=== PATIENT | male | born 1955 | race Caucasian/White ===

== ENCOUNTER 2020-02-01 10:23 | Outpatient (CLI) | payer MEDICARE, SELFPAY ==
--- NOTE | 2020-02-01 | ECG_ITS ---
Measurements Intervals [place] Rate: 71 P: 48 WI: 189 QRS: 48 QRSD: 80 T: 37 QT: 379 QTc: 413 Interpretive Statements SINUS RHYTHM NORMAL ECG Electronically Signed On 02-01-2020 12:31:09 CDT by Perry Nevarez D.O.
== END 2020-02-01 10:24 | disposition home or self-care (01) ==
DX: L97.518 Non-pressure chronic ulcer of other part of right foot with other specified severity (principal)
CPT/HCPCS: 93005

== ENCOUNTER 2020-02-11 11:14 | Emergency (ER) | payer MEDICARE, SELFPAY ==
[2020-02-11 11:19] VITALS: BP 122/58; PULSE 86; RESP 18; TEMP 36.9; O2SAT 99
--- NOTE | 2020-02-11 11:42 | ED.GENADULT ---
HPI - General Adult General Chief complaint: Skin/Abscess/Foreign Body Stated complaint: skin rash poss allergic rxn Time Seen by Provider: 02/11/20 11:15 Source: patient Mode of arrival: ambulatory Limitations: no limitations History of Present Illness HPI narrative: Patient is a 64-year-old male who presents with rash that is been present since Thursday patient notes that he had worked in the yard a day before. Patient notes that he was started on a prednisone taper and has taken 3 days of 60 mg prednisone last dose this morning. Patient notes that the rash has persisted and is diffuse over the torso extremities and head. Patient notes itching. Patient denies any recent illness allergic exposures similar occurrence in the past any recent antibiotic use. Patient on arrival is resting comfortably in the room in no distress. Patient has not taken any other medications for his symptoms Related Data Home Medications Medication Instructions Recorded Confirmed allopurinol 300 mg tablet 300 mg PO DAILY 02/09/20 02/09/20 amiloride 5 mg-hydrochlorothiazide 2 tablet PO DAILY tablet 02/09/20 02/09/20 50 mg tablet dfmeoukrdh-ubynbzhcidiqh-znqkmhtp 1 - 2 cap PO Q4H PRN cap 02/09/20 02/09/20 50 mg-300 mg-40 mg capsule cholecalciferol (vitamin D3) 25 25 mcg PO DAILY 02/09/20 02/09/20 mcg (1,000 unit) capsule hydroxyzine pamoate 50 mg capsule 50 mg PO Q8H PRN cap 02/09/20 02/09/20 meclizine 25 mg tablet 25 mg PO BID PRN tablet 02/09/20 02/09/20 modafinil 200 mg tablet 200 mg PO QAM 02/09/20 02/09/20 nzxawblb-lok-rdwqo acid 300 1 tablet PO DAILY 02/09/20 02/09/20 mcg-lycopene 600 mcg-lutein 300 mcg tablet omega-3 fatty acids 1,000 mg 2,000 mg PO DAILY cap 02/09/20 02/09/20 capsule propranolol 80 mg capsule,24 80 mg PO DAILY 02/09/20 02/09/20 hr,extended release testosterone cypionate 200 mg/mL 200 mg IM .[id number] ml 02/09/20 02/09/20 intramuscular oil venlafaxine 75 mg tablet 75 mg PO BID 02/09/20 02/09/20 Allergies Allergy/AdvReac Type Severity Reaction Status Date / Time No Known Allergies Allergy Unverified 02/11/20 11:24 Review of Systems Review of Systems: All systems reviewed & are unremarkable except as noted in HPI and below PMFSH Past Medical History Medical History Chicken pox Depression Essential hypertension Gout Hypogonadism Measles Surgical History Surgical History History of hernia repair History of neck surgery Kidney stone removed Family History Family History (Updated 02/09/20 @ 10:31 by Mary Ann Hickman [facility]) Father Liver disease due to alcohol Mother History of neuropathy Social History Social History Smoking status: Never smoker Alcohol intake: never Gender identity (if verbalized by the patient): Male Exam Narrative: Exam Narrative: GENERAL: Well-appearing, well-nourished, and in no acute distress. HEAD: Normocephalic, atraumatic. EYES: PERRLA and EOMI. ENT: Nares clear, no rhinorrhea or epistaxis. Mucous membranes moist. Oropharynx with slight erythema and without tonsillar hypertrophy exudate or other lesions. NECK: Supple. No adenopathy or masses. No stridor CHEST: Clear to auscultation. No respiratory distress. No wheezes rales or rhonchi HEART: Regular rate and rhythm. No murmur heard. Normal peripheral pulses. ABDOMEN: Soft, nontender, distended EXTREMITIES: Normal range of motion. No edema. SKIN: Warm, dry, diffuse maculopapular rash to include the hands and feet extremities torso and scalp. No blistering. Rash blanches NEURO: No focal deficits. Alert and oriented x3. PSYCH: Normal mood and affect. Course Consultations Consultation #1: Attempts were made to contact the patient's psychiatrist and neurologist neither will call back. Wanted to update them in regards to
[2020-02-11] MEDS: SODIUM CHLORIDE 0.9% IV 1,000 ML 999 ML IV CONT (11:45)
[2020-02-11] MEDS: FAMOTIDINE 20 MG/2 ML VIAL IV PUSH (11:46)
[2020-02-11 11:56] LABS: Basophils Absolute Auto 0.1 K/mm3 (0.0-0.1); Basophils Percent Auto 1.3 % (0.2-1.2); Eosinophils Absolute Auto 0.9 K/mm3 (0-0.3); Eosinophils Percent Auto 11.1 % (0-4.4); Hematocrit 46.5 % (42.0-52.0); Hemoglobin 15.4 g/dL (14.0-18.0); Immature Granulocyte Absolute 0.04 K/mm3 (0.00-0.031); Immature Granulocyte Percent A 0.5 % (0-0.5); Immature Platelet Fraction Pct 5.4 % (0.9-11.2); Lymphocytes Absolute Auto 1.27 K/mm3 (0.9-3.2); Lymphocytes Percent Auto 16.3 % (18.3-44.2); Mean Corpuscular HGB Conc 33.1 g/dl (32-36); Mean Corpuscular Hemoglobin 30.7 pg (26-34); Mean Corpuscular Volume 92.8 fl (80-100); Mean Platelet Volume 10.7 fl (7.4-10.4); Monocytes Absolute Auto 0.4 K/mm3 (0.1-0.6); Monocytes Percent Auto 5.2 % (2.6-8.5); Neutrophils Absolute Auto 5.1 K/mm3 (1.3-6.7); Neutrophils Percent Auto 65.6 % (45.5-73.1); Platelet Count Result 118 k/mm3 (150-375); Red Blood Count 5.01 M/mm3 (4.6-6.20); Red Cell Distribution Width 13.6 % (11.5-14.5); White Blood Count 7.8 K/mm3 (4.5-10.0)
[2020-02-11 12:04] LABS: INR 1.1; Prothrombin Time 13.5 Seconds (11.1-14.7)
[2020-02-11 12:05] LABS: Partial Thromboplastin Time 29.2 SECONDS (22.3-36.8)
[2020-02-11 12:08] LABS: Alanine Aminotransferase 83 U/L (4-50); Albumin Level 3.6 g/dL (3.5-5.1); Alkaline Phosphatase 187 U/L (38-126); Aspartate Amino Transferase 55 U/L (17-59); Bilirubin,Total 0.3 mg/dL (0.2-1.3); Blood Urea Nitrogen 21 mg/dL (9-20); Calcium 8.5 mg/dL (8.4-10.2); Carbon Dioxide 26 mmol/L (22-30); Chloride 102 mmol/L (98-107); Estimated CRCL calculation 90 ml/min; Estimated Glomerular Filt Rate > 60; Glucose 159 mg/dL (75-110); Potassium 3.6 mmol/L (3.4-5.0); Sodium 135 mmol/L (137-145)
[2020-02-11 12:10] LABS: Monoscreen Negative (Negative); Negative Monotest Control Negative (Negative); Positive Monotest Control Positive (Positive)
[2020-02-11 12:49] LABS: Rapid Plasma Reagin Non-Reactive (NonReactive)
[2020-02-11 13:21] VITALS: BP 111/62; PULSE 87; RESP 20; TEMP 36.6; O2SAT 98
== END 2020-02-11 13:51 | disposition home or self-care (01) ==
PROVIDERS: Emergency Medicine Emergency Medical Services; Emergency Provider Emergency Medicine; PCP Internal Medicine
DX: L27.0 Generalized skin eruption due to drugs and medicaments taken internally (principal); F32.9 Major depressive disorder, single episode, unspecified; I10 Essential (primary) hypertension; T42.1X5A Adverse effect of iminostilbenes, initial encounter
CPT/HCPCS: 36415; 80053; 85025; 85055; 85610; 85730; 86308; 86592; 87081; 87880; 96361; 96374; 96375; 99284; J1200; J7030

== ENCOUNTER 2020-03-09 10:40 | Outpatient (CLI) | payer MEDICARE, SELFPAY ==
--- NOTE | ~2020-03-09 | NM_ITS ---
EXAMINATION: NM bone 3 phase DATE: 03/09/2020 14:50 INDICATION: Pain at the ball of the right foot. TECHNIQUE: 21.7 mCi Tc-99m HDP by intravenous route. Scintigrams of the bilateral feet were obtained in angiographic, blood pool, and delayed phases. COMPARISON: No imaging available to us institution for comparison. FINDINGS: Normal homogeneous distribution of activity at the bilateral feet and ankles on the angiographic and immediate blood pool images. There is likely degenerative joint centered increased uptake, moderate a t the bilateral mid feet in the region of the tarsal metatarsal joints and mild at the right first an d fifth metatarsophalangeal joints and at the bilateral fifth toes. IMPRESSION: 1. Typical pattern of likely degenerative delayed joint centered uptake in the bilateral feet includ ing the region of concern at the right first metatarsophalangeal joint. No abnormal uptake on the ang iographic or blood pool images to suggest inflammation in the setting of infection, inflammatory arth ritis or fracture/stress injury. Reviewed, dictated and finalized at location A. IMPRESSION: 1. Typical pattern of likely degenerative delayed joint centered uptake in the bilateral feet including the region of concern at the right first metatarsopha langeal joint. No abnormal uptake on the angiographic or blood pool images to s uggest inflammation in the setting of infection, inflammatory arthritis or frac ture/stress injury.
== END 2020-03-09 10:41 | disposition home or self-care (01) ==
PROVIDERS: PCP Internal Medicine
DX: G62.9 Polyneuropathy, unspecified (principal); M79.671 Pain in right foot
CPT/HCPCS: 78315; A9561

== ENCOUNTER 2020-03-12 15:03 | Outpatient (CLI) | payer MEDICARE, SELFPAY ==
--- NOTE | ~2020-03-12 | CT_ITS ---
EXAMINATION: CT abdomen pelvis wo con EXAM DATE: 03/12/2020 16:24 INDICATION: Acute left flank pain. TECHNIQUE: Spiral CT of the abdomen and pelvis was performed without contrast. Axial, coronal and sag ittal images were reviewed. The dose-length product (DLP) for this examination was 374.85 mGy-cm. T he exposure was tailored according to patient size (auto mA exposure control), and iterative reconstr uction (ASIR) was used as additional dose reduction technique. Comparison is made to prior examinatio n from 01/29/2013. FINDINGS: Small bilateral nephrolithiasis, with about 6 stones in each kidney, measuring up to 5 mm o n the right and 3 mm on the left. No ureteral or bladder stones, no obstructive nephropathy or hydron ephrosis. The prostate is unremarkable. The bladder is unremarkable. The liver, spleen, adrenal gla nds and pancreas are unremarkable. Gallbladder is unremarkable. No biliary obstruction. There is n o retroperitoneal or pelvic lymphadenopathy. There is mild scattered arteriosclerotic disease. Smal l umbilical fat-containing hernia. The appendix is normal. There is small sliding gastroesophageal hiatal hernia. There is expected am ount of colonic stool. No free intraperitoneal gas. The heart is normal in size. There are no pe ricardial or pleural effusions. The lung bases are unremarkable. There are no osteoblastic or osteo lytic lesions identified. IMPRESSION: 1. Bilateral nephrolithiasis. No obstructive nephropathy or acute findings. 2. Small umbilical fat-containing hernia. Reviewed, dictated and finalized at location B.
--- NOTE | ~2020-03-12 | XR_ITS ---
XR abdomen/kub 1V 03/12/2020 15:35 Indication: Acute flank pain Procedure: KUB Comparison: 08/31/2013 Findings: Bowel gas pattern is nonobstructive. There are multiple bilateral renal stones. No acute os seous abnormality. No definite stones in the course of the ureters. No acute osseous abnormality. Impression: 1: Bilateral nephrolithiasis. Reviewed, dictated and finalized at location A. Impression: 1: Bilateral nephrolithiasis.
== END 2020-03-12 15:04 | disposition home or self-care (01) ==
PROVIDERS: PCP Internal Medicine; Visit Provider Urology
DX: R10.9 Unspecified abdominal pain (principal); N20.0 Calculus of kidney; K42.9 Umbilical hernia without obstruction or gangrene
CPT/HCPCS: 74018; 74176

== ENCOUNTER 2020-03-24 11:05 | Outpatient (CLI) | payer MEDICARE, SELFPAY ==
[2020-03-24 11:34] LABS: Prothrombin Time 12.9 Seconds (11.1-14.7)
[2020-03-24 11:35] LABS: Partial Thromboplastin Time 30.1 SECONDS (22.3-36.8)
[2020-03-24 12:21] LABS: Valproic Acid < 10.0 ug/mL (50-120)
== END 2020-03-24 11:06 | disposition home or self-care (01) ==
LOC: ANHLAB 11:07
PROVIDERS: Anesthesiology; PCP Internal Medicine; Visit Provider Urology
DX: Z01.818 Encounter for other preprocedural examination (principal); N20.0 Calculus of kidney; Z51.81 Encounter for therapeutic drug level monitoring
CPT/HCPCS: 36415; 80164; 85610; 85730; 87086

== ENCOUNTER 2020-03-28 01:27 | Outpatient (CLI) | payer MEDICARE, SELFPAY ==
[2020-03-28 22:08] LABS: SARS-CoV-2 RNA PCR Negative
== END 2020-03-28 01:28 | disposition home or self-care (01) ==
LOC: ANHCOVIDDT 01:27
PROVIDERS: PCP Internal Medicine; Visit Provider Urology
DX: Z01.818 Encounter for other preprocedural examination (principal); Z11.59 Encounter for screening for other viral diseases
CPT/HCPCS: 87635; C9803; U0003

== ENCOUNTER 2020-03-30 03:11 | Day surgery (SDC) | payer MEDICARE, SELFPAY ==
[2020-03-23 15:23] VITALS: BMI 31.5
[2020-03-30] VITALS (7 sets, daily range): BP systolic 112–133; BP diastolic 76–81; PULSE 66–79; RESP 10–20; TEMP 36.3–36.8; O2SAT 92–98
--- NOTE | ~2020-03-30 | XR_ITS ---
EXAMINATION: XR abdomen/kub 1V DATE: 03/30/2020 06:58 INDICATION: Lithotripsy. Right renal stone. TECHNIQUE: KUB COMPARISON: None. FINDINGS: There are multiple small bilateral renal stones. Bowel gas pattern is nonobstructive. Lung bases unre markable. No acute osseous abnormality. IMPRESSION: 1. Bilateral nephrolithiasis. Reviewed, dictated and finalized at location A.
--- NOTE | 2020-03-30 06:49 | WPDHPUPDATE1 ---
History and Physical Update Update Date/Time: 03/30/20 06:49 History and Physical has been reviewed, including an updated exam of the patient. There are NO changes in the patient's condition. Risks, benefits, and alternatives have been discussed and questions answered. Patient agrees to proceed with procedure. Proceed with right renal eswl.
--- NOTE | 2020-03-30 07:42 | WPDANESEPPF ---
Anes - Initial Pre Proc Eval Procedure: Operation Date: 03/30/20 08:30 Proposed Procedures p Right Extracorporeal Shock Wave Lithotripsy - Martin Ayala MD Date/Time: 03/30/20 07:42 Surgeon: Martin Ayala MD Pre Op Diagnosis: Bilateral Nephrolithasis Patient Data Age: 64 Gender: M Height: 5 ft 10 in Weight: 99.79 kg Allergies Allergy/AdvReac Type Severity Reaction Status Date / Time carbamazepine Allergy Rash Verified 03/23/20 15:24 Home Medications Medication Instructions Recorded Confirmed Type allopurinol 300 mg tablet 300 mg PO DAILY 02/09/20 03/23/20 History amiloride 5 mg-hydrochlorothiazide 1 tablet PO BID tablet 02/09/20 03/23/20 History 50 mg tablet cholecalciferol (vitamin D3) 25 25 mcg PO DAILY 02/09/20 03/23/20 History mcg (1,000 unit) capsule hydroxyzine pamoate 50 mg capsule 50 mg PO Q8H PRN cap 02/09/20 03/23/20 History meclizine 25 mg tablet 25 mg PO BID PRN tablet 02/09/20 03/23/20 History modafinil 200 mg tablet 200 mg PO QAM 02/09/20 03/23/20 History xjiqoeom-dlg-xbebk acid 300 1 tablet PO DAILY 02/09/20 03/23/20 History mcg-lycopene 600 mcg-lutein 300 mcg tablet omega-3 fatty acids 1,000 mg 2,000 mg PO DAILY cap 02/09/20 03/23/20 History capsule testosterone cypionate 200 mg/mL 200 mg IM DIRECTED ml 02/09/20 03/23/20 History intramuscular oil venlafaxine 75 mg tablet 75 mg PO BID 02/09/20 03/23/20 History dextromethorphan 20 mg-quinidine 1 cap PO Q12H 02/14/20 03/23/20 History 10 mg capsule divalproex 500 mg tablet,delayed 500 mg PO TID tablet 02/14/20 03/23/20 History release donepezil 10 mg tablet 10 mg PO DAILY tablet 02/14/20 03/23/20 History hydrocodone 5 mg-acetaminophen 325 1 tablet PO Q6H PRN #14 tablet 03/14/20 03/23/20 Rx mg tablet tamsulosin 0.4 mg capsule 0.4 mg PO DAILY #7 cap 03/14/20 03/23/20 Rx primidone 50 mg PO TID 03/23/20 03/23/20 History Patient hx anesthesia problems: none Family hx anesthesia problems: none PMFSH Past Medical History Medical History Chicken pox Depression Essential hypertension Gout Hypogonadism Measles Surgical History Surgical History History of hernia repair History of neck surgery Kidney stone removed Family History Family History Father Liver disease due to alcohol Mother History of neuropathy Social History Social History Smoking status: Never smoker Alcohol intake: never Gender identity (if verbalized by the patient): Male Spiritual care concerns: No Anes - Eval Final PreProcedure Day of Procedure 03/30/20 07:42 Patient weight: overweight Heart: regular rate and rhythm Lungs: clear to auscultation Airway: Mallampati scale class II Neurological: other (alert) Last oral intake: >/= 8 hours ASA classification: III Emergent: no Anesthetic plan: proceed Anesthesia type and monitoring: general LMA and standard monitoring Informed Consent: The patient's anesthetic plan and its attendant risks and benefits were discussed with the patient/family/POA. Questions were solicited and answers provided to the satisfaction of the patient/family/POA.
[2020-03-30] MEDS: LACTATED RINGERS 1,000 ML 30 ML IV CONT (07:50)
[2020-03-30] MEDS: ceFAZolin 2 GM/D5W 50 ML 2 GM/50 ML BAG IVPB (08:17)
--- NOTE | 2020-03-30 08:55 | PM.PROC ---
Procedure Note - Detailed Date of procedure: 03/30/20 Pre-op diagnosis: Bilateral Nephrolithasis Post-op diagnosis: same Procedure performed: ESWL of right renal calculi 2000 shocks to the lower pole calculus measuring 6 mm and 500 shocks to more superior pole Description of procedure: Patient was taken to the operative suite and correctly identified. Once anesthesia was obtained the lower pole stone on the right was visualized in both planes. Two thousand shocks were given to the stone there appeared to be good fragmentation. We then turned attention to the [place] upper pole stone. The remaining 500 shocks were given to the stone. Patient tolerated procedure well without any complications and was taken recovery room stable condition. He will follow up in 10-14 days with a KUB. Develops any problems he will call so we can deal with appropriately. Anesthesia: GLMA Surgeon: Martin Ayala MD Drains: No Packing: No Pathology: none sent Complications: No immediate complications Condition: stable Disposition: PACU
== END 2020-03-30 10:30 | disposition home or self-care (01) ==
PROVIDERS: PCP Internal Medicine; Visit Provider Urology
PROC: (CPT 50590; principal; 2020-03-30 08:30)
DX: N20.0 Calculus of kidney (principal); I10 Essential (primary) hypertension; M10.9 Gout, unspecified; E29.1 Testicular hypofunction; F32.9 Major depressive disorder, single episode, unspecified
CPT/HCPCS: 50590; 74018; J0690; J1100; J1885; J2250; J2405; J2704; J3010; J7120

== ENCOUNTER 2020-04-25 09:30 | Outpatient (CLI) | payer MEDICARE, SELFPAY ==
--- NOTE | ~2020-04-25 | XR_ITS ---
EXAMINATION: XR abdomen/kub 1V EXAM DATE: 04/25/2020 09:58 INDICATION: Nephrolithiasis, kidney stones. TECHNIQUE: Frontal projection(s) of the abdomen for interpretation. Comparison is made to prior exami nation from 03/30/2020. FINDINGS: Probable bilateral nephrolithiasis, indicated on the x-ray. Nonobstructive bowel gas patte rn. There are mild bony degenerative changes. There is no organomegaly. IMPRESSION: Bilateral nephrolithiasis. Reviewed, dictated and finalized at location A. IMPRESSION: Bilateral nephrolithiasis.
== END 2020-04-25 09:31 | disposition home or self-care (01) ==
PROVIDERS: PCP Internal Medicine; Visit Provider Urology
DX: N20.0 Calculus of kidney (principal)
CPT/HCPCS: 74018

== ENCOUNTER 2020-05-29 10:54 | Outpatient (CLI) | payer MEDICARE, SELFPAY ==
--- NOTE | ~2020-05-29 | XR_ITS ---
EXAMINATION: XR abdomen/kub 1V DATE: 05/29/2020 11:08 INDICATION: Calculus of kidney. TECHNIQUE: A supine view of the abdomen on 2 radiographs was obtained. COMPARISON: Abdomen radiographs 04/25/2020, CT abdomen and pelvis 03/12/2020 FINDINGS: There are no dilated loops of bowel. There are approximately 5 stones in right kidney measu ring up to 4 mm. There is a 2 mm calcification in right pelvis. There are approximately 6 stones in l eft kidney measuring up to 3 mm. IMPRESSION: 1. 2 mm calcification in right pelvis, which may be a stone at the right ureterovesicular junction. 2. Small bilateral kidney stones. Reviewed, dictated and finalized at location A. IMPRESSION: 1. 2 mm calcification in right pelvis, which may be a stone at the right ureter ovesicular junction. 2. Small bilateral kidney stones.
== END 2020-05-29 10:55 | disposition home or self-care (01) ==
LOC: ANHIMG 10:57
PROVIDERS: PCP Internal Medicine; Visit Provider Urology
DX: N20.0 Calculus of kidney (principal)
CPT/HCPCS: 74018

== ENCOUNTER 2021-03-12 16:27 | Outpatient (CLI) | payer MEDICARE, SELFPAY ==
--- NOTE | ~2021-03-12 | XR_ITS ---
EXAMINATION: XR abdomen/kub 1V DATE: 03/12/2021 16:45 INDICATION: Calculus of kidney. TECHNIQUE: A supine view of the abdomen on 2 radiographs was obtained. COMPARISON: Abdomen radiographs 05/29/2020, CT abdomen and pelvis 03/12/2020 FINDINGS: There are no dilated loops of bowel. There are approximately 6 stones in right kidney measu ring up to 4 mm. There are approximately 8 stones in left kidney measuring up to 4 mm. IMPRESSION: 1. Bilateral kidney stones. Reviewed, dictated and finalized at location A. IMPRESSION: 1. Bilateral kidney stones.
== END 2021-03-12 16:28 | disposition home or self-care (01) ==
PROVIDERS: PCP Student in an Organized Health Care Education/Training Program; Visit Provider Urology
DX: N20.0 Calculus of kidney (principal)
CPT/HCPCS: 74018

== ENCOUNTER 2023-01-15 13:50 | Outpatient (CLI) | payer MEDICARE, OTHER, SELFPAY ==
--- NOTE | ~2023-01-15 | XR_ITS ---
EXAMINATION: XR abdomen/kub 1V DATE: 01/15/2023 14:16 INDICATION: Calculus of kidney. TECHNIQUE: A supine view of the abdomen on 2 radiographs was obtained. COMPARISON: CT abdomen and pelvis 03/12/2020 FINDINGS: There are no dilated loops of bowel. There are multiple stones in each kidney measuring up to 5 mm on the right. IMPRESSION: 1. Bilateral kidney stones. Reviewed, dictated and finalized at location A. IMPRESSION: 1. Bilateral kidney stones.
== END 2023-01-15 13:51 | disposition home or self-care (01) ==
PROVIDERS: PCP Student in an Organized Health Care Education/Training Program
DX: N20.0 Calculus of kidney (principal)
CPT/HCPCS: 74018

== ENCOUNTER 2023-02-18 14:05 | Outpatient (CLI) | payer MEDICARE, OTHER, SELFPAY ==
--- NOTE | 2023-02-18 14:00 | ECG_ITS ---
Measurements Intervals [place] Rate: 71 P: 7 MO: 183 QRS: 43 QRSD: 90 T: 28 QT: 400 QTc: 436 Interpretive Statements SINUS RHYTHM NONSPECIFIC T-WAVE ABNORMALITY COMPARED TO ECG 02/01/2020 11:46:25 T-WAVE ABNORMALITY NOW PRESENT Electronically Signed On 02-19-2023 10:41:40 CDT by Juan Luna M.D.
[2023-02-18 14:44] LABS: Anion Gap 5 mmol/L (8-16); Blood Urea Nitrogen 15 mg/dL (9-20); Calcium 9.3 mg/dL (8.4-10.2); Carbon Dioxide 34 mmol/L (22-30); Chloride 100 mmol/L (98-107); Estimated Glomerular Filt Rate > 60; Glucose 115 mg/dL (65-110); Potassium 3.1 mmol/L (3.4-5.0); Sodium 139 mmol/L (137-145)
[2023-02-18 14:50] LABS: Prothrombin Time 13.2 Seconds (11.1-14.7)
[2023-02-18 14:51] LABS: Appearance Urine Clear (Clear); Bilirubin Urine Negative (Negative); Blood Urine Negative (Negative); Color Urine Yellow (Yellow); Glucose Urine UA Negative (Negative); Ketones Urine Negative (Negative); Leukocyte Esterase Ur Negative LEU/UL (Negative); Nitrate Urine Negative (Negative); Partial Thromboplastin Time 34.7 SECONDS (22.3-36.8); Protein Urine Negative (Negative); Specific Grav Ur 1.018 (1.001-1.035); Urobilinogen Urine 0.2 mg/dL (<2.0); pH Urine 5.5 (5.0-9.0)
[2023-02-18 14:56] LABS: Add Urine Microscopic? NO
== END 2023-02-18 14:06 | disposition home or self-care (01) ==
LOC: ANHSURGERY 14:08
PROVIDERS: Anesthesiology; PCP Student in an Organized Health Care Education/Training Program; Visit Provider Urology
DX: Z01.810 Encounter for preprocedural cardiovascular examination (principal); Z01.812 Encounter for preprocedural laboratory examination; N20.0 Calculus of kidney; I10 Essential (primary) hypertension; Z79.899 Other long term (current) drug therapy; R94.31 Abnormal electrocardiogram [ECG] [EKG]
CPT/HCPCS: 36415; 80048; 81003; 85610; 85730; 93005

== ENCOUNTER 2023-02-20 04:28 | Day surgery (SDC) | payer MEDICARE, OTHER, SELFPAY ==
[2023-02-18 12:57] VITALS: BMI 32.3
--- NOTE | 2023-02-18 13:02 | PC.NURSE ---
Report to the Outpatient Waiting Room, entrance under the green pavilion located off [facility], at time 9:00 on date 02/20/23. Planned Procedure Time: 11:00. Time changes happen often and if your time is changed the preop area will call you the afternoon before. - You and your visitor will be asked to self-screen and do not enter if you have any COVID symptoms. - A mask is optional within the hospital at this time. Patients may have clear liquids (water, carbonated beverages, clear teas, apple juice) until 3 hours prior to surgery with a maximum of 20 ounces. - No food from midnight until time of surgery Take the following medications with a SIP of water the morning of surgery: GABAPENTIN, LAMOTRIGINE, VENLAFAXINE, HYDROXYZINE DO NOT STOP ANY OF YOUR OTHER PRESCRIPTION MEDICATIONS PRIOR TO SURGERY ?EXCEPT THE FOLLOWING Medications to discontinue per physician: VITAMINS/SUPPLEMENTS Date to take last dose: NO MORE UNTIL AFTER SURGERY Please no make-up, nail north k[place], hairspray, perfume, deodorant, or body powder the day of surgery. No jewelry (including any body piercings) or valuables the day of surgery, leave them at home. Please take a shower or bath the night before, or the morning of, surgery with an antibacterial soap. Wear comfortable, loose fitting clothing. - Jewelry must be removed prior to entering the operating room. Rings and piercings that are not removed may be cut off. - The hospital will not accept responsibility for valuables. - Please leave all valuables, including medications, at home the day of surgery. If you are going home after surgery, a licensed local combination truck driver must drive you home. - NO public transportation without another adult if you receive anesthesia. - We recommend that an adult stay with you for 24 hours following discharge. - We also recommend that you do not drive, make important decision, drink alcoholic beverages, or take any drugs that were not prescribed by your health care provider for at least 24 hours after your discharge time. Follow any additional instructions given to you from your surgeon. If you or anyone in your household have experienced Covid symptoms in the past week, please notify your surgeon or the nurse liaison at the phone number below for possible testing. Telephone instructions given to ANASTACIA Lind KACY and asked if any additional questions and then verbalized understanding. Patient advised to call surgeon office or pre surgery nurse liaison [phone] if any additional questions.
[2023-02-20] VITALS (8 sets, daily range): BP systolic 120–138; BP diastolic 71–86; PULSE 60–89; RESP 12–19; TEMP 36.6–36.7; O2SAT 94–100
--- NOTE | ~2023-02-20 | XR_ITS ---
XR abdomen/kub 1V DATE: 02/20/2023 09:22 INDICATION: Prelithotripsy examination TECHNIQUE: 2 supine AP views of the abdomen COMPARISON: 01/15/2023 KUB FINDINGS: Multiple bilateral calcified kidney stones are again noted, the largest by 5 mm, on the rig ht. No visceromegaly is evident. The psoas shadows are intact. No evidence of bowel obstruction. Degenerative changes of the lumbar spine. IMPRESSION: Bilateral nephrolithiasis, stable since 01/15/2023 Reviewed, dictated and finalized at Location A. Reviewed, dictated and finalized at location []
--- NOTE | 2023-02-20 10:11 | WPDANESEPPF ---
Anes - Initial Pre Proc Eval Procedure: Operation Date: 02/20/23 11:00 Proposed Procedures p Left Extracorporeal Shock Wave Lithotripsy - Martin Ayala MD Date/Time: 02/20/23 10:11 Surgeon: Martin Ayala MD Pre Op Diagnosis: left renal stones Patient Data Age: 67 Gender: M Height: 1.78 m Weight: 99.2 kg Last Vital Signs Temp 36.6 C 02/20/23 09:33 Pulse 68 02/20/23 09:33 Resp 18 02/20/23 09:33 BP 131/71 02/20/23 09:33 Pulse Ox 97 02/20/23 09:33 O2 Del Method Room Air 02/20/23 09:33 Allergies Allergy/AdvReac Type Severity Reaction Status Date / Time carbamazepine Allergy Severe Hives Verified 02/20/23 09:33 Home Medications Medication Instructions Recorded Confirmed Type cholecalciferol (vitamin D3) 25 25 mcg PO DAILY 02/09/20 02/20/23 History mcg (1,000 unit) capsule hydroxyzine pamoate 50 mg capsule 50 mg PO Q8H PRN Anxiety 02/09/20 02/20/23 History modafinil 200 mg tablet 200 mg PO QAM 02/09/20 02/20/23 History rkfxwylm-sgt-qogqk acid 300 1 tablet PO DAILY 02/09/20 02/20/23 History mcg-lycopene 600 mcg-lutein 300 mcg tablet (Centrum Silver Men) omega-3 fatty acids 1,000 mg 2,000 mg PO DAILY 02/09/20 02/20/23 History capsule (Fish Oil Concentrate) testosterone cypionate 200 mg/mL 200 mg IM DIRECTED 02/09/20 02/20/23 History intramuscular oil venlafaxine 75 mg tablet 75 mg PO BID 02/09/20 02/20/23 History donepezil 10 mg tablet 10 mg PO DAILY 02/14/20 02/20/23 History allopurinol 300 mg tablet 300 mg PO DAILY #90 tabs 07/16/20 02/20/23 Rx atorvastatin 10 mg tablet 10 mg PO DAILY #90 tabs 06/24/21 02/20/23 Rx chlorthalidone 25 mg tablet 25 mg PO DAILY 02/18/23 02/20/23 History gabapentin 300 mg capsule 300 mg PO BID 02/18/23 02/20/23 History lamotrigine 100 mg tablet 100 mg PO BID 02/18/23 02/20/23 History tamsulosin 0.4 mg capsule 0.4 mg PO HS 02/18/23 02/20/23 History Patient hx anesthesia problems: none Family hx anesthesia problems: none Results Review: All pre-operative results and documents have been reviewed as part of the pre-operative evaluation. [facility] Past Medical History Medical History Chicken pox Depression Essential hypertension Gout Hypogonadism Measles PTSD (post-traumatic stress disorder) Surgical History Surgical History History of hernia repair History of neck surgery Kidney stone removed Family History Family History Father Liver disease due to alcohol Mother History of neuropathy Social History Social History Smoking status: Never smoker Alcohol intake: never Substance use: never Substance use type: does not use Living arrangements: with family Gender identity (if verbalized by the patient): Male Spiritual care concerns: No Anes - Eval Final PreProcedure Day of Procedure 02/20/23 10:11 Patient weight: obese Heart: regular rate and rhythm Lungs: clear to auscultation Airway: Mallampati scale Neurological: alert and oriented Last oral intake: >/= 8 hours ASA classification: III Emergent: no Anesthetic plan: proceed Anesthesia type and monitoring: general LMA and standard monitoring Results Review: All pre-operative results and documents have been reviewed as part of the pre-operative evaluation. Informed Consent: The patient's anesthetic plan and its attendant risks and benefits were discussed with the patient/family/POA. Questions were solicited and answers provided to the satisfaction of the patient/family/POA.
[2023-02-20] MEDS: LACTATED RINGERS 1,000 ML 30 ML IV CONT ×2 (10:51→12:03)
--- NOTE | 2023-02-20 11:11 | WPDHPUPDATE1 ---
History and Physical Update Update Date/Time: 02/20/23 11:11 History and Physical has been reviewed, including an updated exam of the patient. There are NO changes in the patient's condition. Risks, benefits, and alternatives have been discussed and questions answered. Patient agrees to proceed with procedure. Proceed with left renal lithotripsy
[2023-02-20] MEDS: ceFAZolin 2 GM/D5W 50 ML 2 GM/50 ML BAG IVPB (11:20)
--- NOTE | 2023-02-20 11:54 | W.PM.PROC2 ---
Procedure Note - Detailed Date of Procedure 02/20/23 Pre-op Diagnosis left renal stones Post-op Diagnosis Same Procedure Performed Lithotripsy of left renal calculi 1400 shocks to the upper pole stone, 1100 shocks to 2 lower pole stones Surgeon Martin Ayala MD Anesthesia General Description of Procedure Patient was taken to the operative suite correctly identified. Once anesthesia was obtained the upper pole stone was localized in both planes. One thousand four hundred shocks were given the stone appeared to be good fragmentation. We then turned our attention to to lower pole stones. They were adjacent to each other. The remaining lamina 100 shocks were given to the stones. Patient tolerated procedure well without any complications was taken recovery stable condition. He will follow-up in 7-10 days with KUB. This completes dictation please send a copy to my office Drains No Packing No Pathology None sent Complications No immediate complications Condition Stable Disposition PACU
== END 2023-02-20 13:36 | disposition home or self-care (01) ==
PROVIDERS: PCP Student in an Organized Health Care Education/Training Program; Visit Provider Urology
PROC: (CPT 50590; principal; 2023-02-20 11:00)
DX: N20.0 Calculus of kidney (principal); I10 Essential (primary) hypertension; M10.9 Gout, unspecified; F32.A Depression, unspecified; F43.10 Post-traumatic stress disorder, unspecified; E66.9 Obesity, unspecified; Z68.31 Body mass index [BMI] 31.0-31.9, adult
CPT/HCPCS: 50590; 74018; J0690; J1100; J2405; J2704; J3010; J7120

== ENCOUNTER 2023-03-04 13:44 | Outpatient (CLI) | payer MEDICARE, OTHER, SELFPAY ==
--- NOTE | ~2023-03-04 | XR_ITS ---
EXAM: XR abdomen/kub 1V DATE: 03/04/2023 13:57 HISTORY: BI RENAL STONES, 2 WKS POST ESWL . COMPARISON: 02/20/2023. FINDINGS: Clear lung bases. Normal bowel gas pattern. No organomegaly. Multiple stable bilateral lars al stones. Lumbar degenerative disc disease. Mild bilateral hip osteoarthritis. IMPRESSION: Stable bilateral nephrolithiasis. Reviewed, dictated and finalized at location K.
== END 2023-03-04 13:45 | disposition home or self-care (01) ==
PROVIDERS: PCP Student in an Organized Health Care Education/Training Program; Visit Provider Urology
DX: N20.0 Calculus of kidney (principal)
CPT/HCPCS: 74018

== ENCOUNTER 2023-12-18 09:43 | Outpatient (CLI) | payer MEDICARE, OTHER, SELFPAY ==
--- NOTE | 2023-12-28 18:37 | WPDSLEEPSTUD ---
Sleep Study Date of Study: 12/18/23 Ordering Provider: Indigo Olguin Interpreting Physician: Juliana Bronson DO Sleep Study Type: Split Polysomnogram Height: 1.8 m Weight: 102.058 kg Body Mass Index: 31.4 Neck Circumference (inches): 17.5 [place]: 3 Reason for Sleep Study Previously diagnosed with ROSEMARIE. Not compliant with PAP Therapy. Needs split study to re-qualify for treatment. Sleep History The patient is a 68-year-old male With prior traumatic brain injury, peripheral neuropathy, diabetes, hypertension, gout and cognitive impairment that had a sleep study ordered by his neurologist for evaluation of sleep apnea. The patient was previously diagnosed with mild obstructive sleep apnea but was unable to tolerate CPAP. the patient occasionally awakens from sleep short of breath. He denies awakening at night with heartburn, belching or cough. He frequently snores and it is frequently loud enough that others complain. He occasionally has trouble sleeping when he has a cold. He rarely wakes up gasping for air throughout the night. He occasionally has breathing problems at night observed by himself or others. He occasionally sweats excessively at night. He occasionally has heart palpitations or irregular heartbeats during the night. He occasionally falls asleep during the day but never while driving. He denies sleep paralysis, cataplexy and hypnagogic / hypnopompic hallucinations. He denies having trouble at school or work due to sleepiness. He denies feeling afraid of going to sleep. He frequently has nightmares. He frequently remembers his dreams. He frequently has thoughts racing through his mind. He rarely feels sad, depressed or anxious. He rarely has muscular tension. He occasionally notices parts of his body jerk. He rarely kicks during the night. He denies having crawling and aching feelings in his legs. He rarely has leg pain during the night. He rarely grinds his teeth during sleep but rarely awakens with morning jaw pain. He is occasionally bothered by pain during the day and occasionally awakened by pain during the night. He occasionally wakes up feeling stiff in the morning. He occasionally wakes up with sore or achy muscles. He occasionally wakes up with pain in the neck, spine and other joints. He goes to bed at 11:00 p.m. on both weekdays and weekends. It takes him 1 hour to fall asleep. He wakes up twice throughout the night for unknown reasons and it can take up to 5 minutes to fall back asleep. He wakes up at 4:00 a.m. on weekdays and at 5:00 a.m. on the weekends. He typically gets 6 hours of sleep per night. He will stay in bed for 5 minutes after waking up in the morning. He currently lives with his . He denies consuming any caffeinated beverages within 2 hours of bedtime. He denies engaging in physical exercise before bedtime. He will read watch television before falling asleep. He will take naps in the afternoon or the evening and they are refreshing. He consumes 1 caffeinated beverage per day. He denies tobacco, alcohol and recreational drug use. [facility] Past Medical History Medical History Chicken pox Depression Essential hypertension Gout Hypogonadism Measles PTSD (post-traumatic stress disorder) Surgical History Surgical History History of hernia repair History of neck surgery Kidney stone removed Family History Family History Father Liver disease due to alcohol Mother History of neuropathy Social History Social History Smoking status: Never smoker Alcohol intake: never Substance use: never Substance use type: does not use Living arrangements: with family Gender identity (if verbalized by the patient): Male Spiritual care conc
[2023-12-29 12:50] VITALS: BMI 31.4
== END 2023-12-19 07:11 | disposition home or self-care (01) ==
LOC: ANHCSM 09:44
PROVIDERS: PCP Student in an Organized Health Care Education/Training Program
DX: G47.33 Obstructive sleep apnea (adult) (pediatric) (principal); G47.61 Periodic limb movement disorder
CPT/HCPCS: 95811

== ENCOUNTER 2024-02-09 16:25 | Emergency (ER) | payer MEDICARE, OTHER, SELFPAY ==
--- NOTE | ~2024-02-09 | XR_ITS ---
EXAM: XR ankle LT min 3V DATE: 02/09/2024 17:06 HISTORY: left lateral ankle injury/pain . COMPARISON: None available. FINDINGS: Normal mineralization. Oblique fracture of the distal left fibula extending to the joint l ine, with 3 mm lateral displacement. No lytic or blastic lesion. Moderate Achilles and plantar enthes opathy. Degenerative changes in the tibiotalar joint and multiple midfoot joints. No erosion or perio steal change. Soft tissues within normal limits. IMPRESSION: Oblique mildly displaced Pate B type fracture of the distal left fibula. Reviewed, dictated and finalized at location K. IMPRESSION: Oblique mildly displaced Pate B type fracture of the distal left f ibula.
--- NOTE | 2024-02-09 16:47 | ED.LOWEXIN ---
HPI - Extremity Injury (Lower) General Chief Complaint: Extremity Injury, Lower Stated Complaint: lt ankle injury Time Seen by Provider: 02/09/24 16:50 Source: patient Mode of arrival: ambulatory Limitations: no limitations History of Present Illness HPI Narrative: Wily is a 68-year-old male patient presenting to the clinic today with complaints of left ankle injury. He reports he slipped on Thursday and did the splits and injured the left ankle. Has pain and swelling to the medial and lateral ankle. Had the ankle wrapped with [employer] Related Data Home Medications Medication Instructions Recorded Confirmed cholecalciferol (vitamin D3) 25 25 mcg PO DAILY 02/09/20 02/20/23 mcg (1,000 unit) capsule hydroxyzine pamoate 50 mg capsule 50 mg PO Q8H PRN Anxiety 02/09/20 02/20/23 modafinil 200 mg tablet 200 mg PO QAM 02/09/20 02/20/23 [id number]-hn-[id number] 300 mcg-K 60 1 tablet PO DAILY 02/09/20 02/20/23 mcg-lycop 600 mcg-lutein 300 mcg tablet (Centrum Silver Men) omega-3 fatty acids 1,000 mg 2,000 mg PO DAILY 02/09/20 02/20/23 capsule (Fish Oil Concentrate) testosterone cypionate 200 mg/mL 200 mg IM DIRECTED 02/09/20 02/20/23 intramuscular oil venlafaxine 75 mg tablet 75 mg PO BID 02/09/20 02/20/23 donepezil 10 mg tablet 10 mg PO DAILY 02/14/20 02/20/23 chlorthalidone 25 mg tablet 25 mg PO DAILY 02/18/23 02/20/23 gabapentin 300 mg capsule 300 mg PO BID 02/18/23 02/20/23 lamotrigine 100 mg tablet 100 mg PO BID 02/18/23 02/20/23 Allergies Allergy/AdvReac Type Severity Reaction Status Date / Time carbamazepine Allergy Severe Hives Verified 02/09/24 16:51 Review of Systems Review of Systems: Pertinent positives per HPI. Patient denies any fever, chills, rash, headache, visual changes, dizziness, cough, runny nose, sore throat, shortness of breath, chest pain, palpitations, nausea, vomiting, diarrhea, constipation, abdominal pain, or any urinary issues. [facility] Past Medical History Medical History Chicken pox Depression Essential hypertension Gout Hypogonadism Measles PTSD (post-traumatic stress disorder) Surgical History Surgical History History of hernia repair History of neck surgery Kidney stone removed Family History Family History Father Liver disease due to alcohol Mother History of neuropathy Social History Social History Smoking status: Never smoker Alcohol intake: never Substance use: never Substance use type: does not use Living arrangements: with family Gender identity (if verbalized by the patient): Male Spiritual care concerns: No Comments At the time of my signature, I reviewed and agree with the nursing past medical, surgical, social, and family history. There is no relevant family history pertinent to the patient complaint. Exam Narrative: General: Well-developed, well nourished, in no apparent distress Head: Normocephalic, atraumatic. Cardio: Regular rate and rhythm, s1 and s2 normal, no murmur appreciated. Resp: Clear to auscultation bilaterally, no rhonchi, rales, wheezing or rubs. Musculoskeletal: No deformity, tender to palpation over the medial and lateral ankle with old bruising noted, grossly normal range of motion, pain with dorsal flexion and plantar flexion as well as valgus and varus maneuvers, no laxity, muscle strength strong and equal, peripheral pulse strong, trace edema in the left lower extremity, no cyanosis, walking with crutches Course Course Emergency Course: Portions of this record may have been created with voice recognition software. Level of Care: Express Care Visit Vital Signs Vital signs: Vital signs reviewed MDM - Extremity Injury (Lower) MDM Narrative Medical decision making narrative:
[2024-02-09 16:49] VITALS: BP 109/65; PULSE 62; RESP 16; TEMP 36.5; O2SAT 95
== END 2024-02-09 17:58 | disposition home or self-care (01) ==
PROVIDERS: Emergency Provider Nurse Practitioner Family; PCP Student in an Organized Health Care Education/Training Program
DX: S82.832A Other fracture of upper and lower end of left fibula, initial encounter for closed fracture (principal); W01.0XXA Fall on same level from slipping, tripping and stumbling without subsequent striking against object, initial encounter; I10 Essential (primary) hypertension; M10.9 Gout, unspecified; F32.A Depression, unspecified
CPT/HCPCS: 29515; 73610; 99214; G0463

== ENCOUNTER 2024-08-29 00:22 | Day surgery (SDC) | payer MEDICARE, OTHER, SELFPAY ==
[2024-08-22 10:47] VITALS: BMI 32.3
[2024-08-29 09:19] LABS: Glucose Point of Care 119 mg/dl (65-105)
[2024-08-29 09:23] VITALS: BP 152/73; PULSE 54; RESP 18; TEMP 35.9; O2SAT 96; BMI 31.9
[2024-08-29] MEDS: LACTATED RINGERS 1,000 ML 150 ML IV CONT (09:34)
--- NOTE | 2024-08-29 10:10 | WPDHPUPDATE1 ---
History and Physical Update Update Date/Time: 08/29/24 10:10 History and Physical has been reviewed, including an updated exam of the patient. There are NO changes in the patient's condition. Risks, benefits, and alternatives have been discussed and questions answered. Patient agrees to proceed with procedure.
--- NOTE | 2024-08-29 10:12 | P.PNAN_ITS ---
Anes - Initial Pre Proc Eval Procedure: Operation Date: 08/29/24 10:30 Proposed Procedures p Colonoscopy - Sky Naranjo MD Date/Time: 08/29/24 10:12 Surgeon: Sky Naranjo MD Pre Op Diagnosis: Diarrhea,Fecal smearing Patient Data Age: 68 Gender: M Height: 1.78 m Weight: 101.1 kg Last Vital Signs Temp 35.9 C L 08/29/24 09:23 Pulse 54 L 08/29/24 09:23 Resp 18 08/29/24 09:23 BP 152/73 H 08/29/24 09:23 Pulse Ox 96 08/29/24 09:23 O2 Del Method Room Air 08/29/24 09:23 Allergies Allergy/AdvReac Type Severity Reaction Status Date / Time carbamazepine Allergy Severe Hives Verified 08/29/24 09:18 Home Medications ?Medication ?Instructions ?Recorded ?Confirmed ?Type cholecalciferol (vitamin D3) 25 25 mcg PO DAILY 02/09/20 08/29/24 History mcg (1,000 unit) capsule hydroxyzine pamoate 50 mg capsule 50 mg PO Q8H PRN Anxiety 02/09/20 08/29/24 History [id number]-xp-upfzq 300 mcg-K 60 1 tablet PO DAILY 02/09/20 08/29/24 History mcg-lycop 600 mcg-lutein 300 mcg tablet (Centrum Silver Men) omega-3 fatty acids 1,000 mg 2,000 mg PO DAILY 02/09/20 08/29/24 History capsule (Fish Oil Concentrate) testosterone cypionate 200 mg/mL 200 mg IM DIRECTED 02/09/20 08/29/24 History intramuscular oil donepezil 10 mg tablet 10 mg PO DAILY 02/14/20 08/29/24 History allopurinol 300 mg tablet 300 mg PO DAILY #90 tabs 07/16/20 08/29/24 Rx atorvastatin 10 mg tablet 10 mg PO DAILY #90 tabs 06/24/21 08/29/24 Rx chlorthalidone 25 mg tablet 25 mg PO DAILY 02/18/23 08/29/24 History gabapentin 300 mg capsule 300 mg PO BID 02/18/23 08/29/24 History lamotrigine 100 mg tablet 100 mg PO BID 02/18/23 08/29/24 History meclizine 25 mg tablet 25 mg PO DAILY PRN Dizziness Or 02/09/24 08/29/24 History Vertigo paroxetine HCl 20 mg tablet 20 mg PO DAILY 02/09/24 08/29/24 History propranolol 60 mg capsule,24 60 mg PO DAILY 02/09/24 08/29/24 History hr,extended release tamsulosin 0.4 mg capsule See Rx Instructions .Route 06/05/24 08/29/24 Rx .COMPLEX #30 caps alpha lipoic acid 600 mg capsule 600 mg PO DAILY 08/16/24 08/29/24 History glipizide 5 mg tablet 5 mg PO DAILY 08/16/24 08/29/24 History quetiapine 25 mg tablet 25 mg PO QHS 08/16/24 08/29/24 History Laboratory Tests 08/29/24 09:17 POC Capillary Glucose 119 H mg/dl (65-105) Patient hx anesthesia problems: none Family hx anesthesia problems: none Results Review: All pre-operative results and documents have been reviewed as part of the pre- operative evaluation. [facility] Past Medical History Medical History PTSD (post-traumatic stress disorder) Essential hypertension Hypogonadism Depression Measles Gout Chicken pox Surgical History Surgical History History of hernia repair Kidney stone removed History of neck surgery Family History Family History Father Liver disease due to alcohol Mother History of neuropathy Unknown Hypertension Depression Social History Social History Smoking status: Never smoker Alcohol intake: never Substance use: never Substance use type: does not use Living arrangements: with family Gender identity (if verbalized by the patient): Male Spiritual care concerns: No Comments neck fusion C2-7 Anes - Eval Final PreProcedure Day of Procedure 08/29/24 10:12 Patient weight: obese Heart: regular rate and rhythm Lungs: normal air movement Airway: Mallampati scale class II Neurological: alert and oriented Last oral intake: >/= 8 hours ASA classification: III Emergent: no Anesthesia type and monitoring: general GIVS and standard monitoring Results Review: All pre-operative results and documents have been reviewed as part of the pre- operative evaluation. Informed Consent: The patient's anesthetic plan and its attendant risks and benefits were discussed with the patient/family/POA. Questions were solicited and answers provided to the satisfaction of the patient/family/POA.
[2024-08-29 10:32] VITALS: BP 103/69; PULSE 54; RESP 17; O2SAT 91
[2024-08-29 10:42] VITALS: BP 115/75; PULSE 55; RESP 19; O2SAT 93
[2024-08-29 10:52] VITALS: BP 126/70; PULSE 53; RESP 192; O2SAT 96
--- OUTSIDE RECORDS SUMMARY | 2024-09-03 07:50 | XMS_ITS | Encounter Summary ---
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 Name Role Phone Suman Monique DO Primary Care Provider [phone] Reason for Visit * Reason Onset Date Comments Question 11/22/2018 Encounter Details Date Type Department Care Team (Late st Contact Info) Description 11/22/2018 Telephone [facility] [employer] [id number] [id number] [place] [address] [id number] Question Social History Tobacco Use Types Packs/Day Years Used Date Smoking Tobacco: Never Smokeless Tobacco: Never Alcohol Use Standard Drinks/Week Comments No 0 (1 standard drink = 0.6 oz pur e alcohol) Sex and Gender Information Value Date Recorded Sex Assigned at Not on file Gender Identity Not on file Sexual Orientation Not on file documented as of this encounter Miscellaneous Notes * Telephone Encounter - Hilda Sr - 11/23/2018 2:20 PM CDT called back and I informed her of Dr. Chow's response. understood. * Telephone Encounter - Danish Solano - 11/23/2018 12:56 PM CDT Called M for pt to call back. Per Dr. Cohw's note Continue to take all medications while on Inderal. * Telephone Encounter - Rosa Chow MD - 11/23/2018 12:53 PM CDT No. * Telephone Encounter - Danish Solano - 11/22/2018 4:40 PM CDT Spoke with pt she stated they are no longer seeing PCP they are in the process of finding a new PCP. Also she wants to know do you want him to stop any of the other medication while on Inderal? * Telephone Encounter - Rosa Chow MD - 11/22/2018 4:03 PM CDT ordered Inderal 80 mg daily if okay with her PCP. * Telephone Encounter - Danish Solano - 11/22/2018 1:53 PM CDT Pt called and stated pt trimmers are getting worse and she's very concerned. I asked her wouldshe like to make an appointment she replied no, but she would like to know can his medication be increased and help with the trimmers. Next appointment is 06/03 for 1 year follow up. documented in this encounter Plan of Treatment Not on file documented as of this encounter Visit Diagnoses Not on filedocumented in this encounter Care Teams Payloader Machine Operator Relationship Specialty Start Date End Date Suman Monique DO PCP - General 04/20/18 01/30/21 documented as of this encounter
--- OUTSIDE RECORDS SUMMARY | 2024-09-03 07:50 | XMS_ITS | Encounter Summary ---
Author Organization [facility] Address [address] [place] [address] Care Team Providers Care Slab Worker Name Role Phone Suman Monique DO Primary Care Provider [phone] Reason for Visit * Reason Comments Follow-up Encounter Details Date Type Department Care Team (Late st Contact Info) Description 01/05/2020 11:00 AM CDT Video Visit [facility] [address] [facility] [address] [place] [phone] [place] [id number] [address] Memory loss ; Numbness Social History Tobacco Use Types Packs/Day Years Used Date Smoking Tobacco: Never Smokeless Tobacco: Never Alcohol Use Standard Drinks/Week Comments No 0 (1 standard drink = 0.6 oz pur e alcohol) Sex and Gender Information Value Date Recorded Sex Assigned at Not on file Gender Identity Not on file Sexual Orientation Not on file COVID-19 Exposure Response Date Recorded In the last month, have you been in contact with someone who was confirmed or suspected to have Coronavirus / COVID-19? No / Unsure 01/02/2020 11:21 AM CDT documented as of this encounter Progress Notes * Rosa Chow MD - 01/05/2020 11:14 AM CDT 01/05/2020 Wily Bahena 64 year old Referring Physician: Dr. Suman Monique DO MD Chief Complaint: Chief Complaint Patient presents with ??? Follow-up HPI: Wily Bahenais a 64 year old came for follow up of postconcussion syndrome. Interval History: RYDER gone, short-term memory still bad. Progressiviely worsening in memory loss. Dr. Tracy (psych) recently increased depakote. Tremor not helped by Primidone yet. Had a lot of Anger issue. Seeing a Counselor. Had falls. Still had hand numbenss in fingertips, about the same, strength of hands about the same. History otherwise no sig. Changes below per my review. He still had memory loss, confusion, nightmares, anger issues, fatigue, poor balance, light sensitivity, blurry vision, irritability. He had some hand tremor when holding something. He also had shaking at night time. NO tongue biting or bowel/bladder incontinence.. He had some tremor of both hands since the first fall affecting him eating soup. The patient denies weakness, double-vision, slurred speech, incontinence of bowel bladder. There is no seizure-like events, no tongue biting.He is on disability. He had numbness in his hands/feet for about 2 months. Past Medical History: Diagnosis Date ??? Depression ??? Gout ??? Kidney stones Past Surgical History: Procedure Laterality Date ??? Cervical Fusion 12/21/2017 ??? Hernia Repair 1973 Current Outpatient Medications Medication Sig Dispense Refill ??? allopurinol (ZYLOPRIM) 300 MG tablet Take 300 mg by mouth once daily ??? aMILoride-hydroCHLOROthiazide (MODURETIC) 5-50 MG tablet Take 1 Tab by mouth once daily ??? jwroncwqva-udgvxcbhegzka-ketdywtw (FIORICET) 50-300-40 MG capsule Take 1 capsule by mouth every4 hours as needed for Headache 30 capsule 3 ??? divalproex DR (DEPAKOTE) 500 MG tablet Take 500 mg by mouth 2 times daily ??? donepezil (ARICEPT) 10 MG tablet Take 1 tablet by mouth at bedtime 30 tablet 5 ??? hydrOXYzine pamoate (VISTARIL) 50 MG capsule Take 1 capsule by mouth 3 times daily as needed 0 ??? meclizine (ANTIVERT) 25 MG tablet Take 25 mg by mouth 3 times daily as needed 0 ??? modafinil (PROVIGIL) 200 MG tablet Take 200 mg by mouth every morning ??? Multiple Vitamin (MULTI VITAMIN DAILY PO) Take 1 tablet by mouth once daily Reasons: Centrium Silver 50+ ??? NAPROXEN DR PO Take 20 mg by mouth 2 times daily ??? Carmel-3 Fatty Acids (FISH OIL PO) Take by mouth 2 times daily ??? primidone (MYSOLINE) 50 MG tablet Take 1 tablet by mouth 3 times daily 90 tablet 5 ??? sertraline (ZOLOFT) 100 MG tablet Take 150 mg by mouth once daily ??? testosterone cypionate (DEPO-TESTOTERONE) 200 MG/ML injection Inject 1 mL into muscle every 14 days 5 ??? venlafaxine XR 24hr (EFFEXOR XR) 75 MG capsule Take 75 mg by mouth once daily 1 ??? VYVANSE 70 MG capsule Take 70 mg by mouth once daily 0 No current facility-administered medications for this visit. No Known Allergies Social History Socioeconomic History ??? Marital status: Spouse name: Not on file ??? Number of children: 1 ??? Years of education: Not on file ??? Highest education level: Not on file Occupational History ??? Occupation: [employer] Social Needs ??? Financial resource strain: Not on file ??? Food insecurity Worry: Not on file Inability: Not on file ??? Transportation needs Medical: Not on file Non-medical: Not on file Tobacco Use ??? Smoking status: Never Smoker ??? Smokeless tobacco: Never Used Substance and Sexual Activity ??? Alcohol use: No ??? Drug use: No ??? Sexual activity: Not on file Lifestyle ??? Physical activity Days per week: Not on file Minutes per session: Not on file ??? Stress: Not on file Relationships ??? Social connections Talks on phone: Not on file Gets together: Not on file Attends bahai service: Not on file Active member of club or organization: Not on file Attends meetings of clubs or organizations: Not on file Relationship status: Not on file ??? Intimate partner violence Fear of current or ex partner: Not on file Emotionally abused: Not on file Physically abused: Not on file Forced sexual activity: Not on file Other Topics Concern ??? Not on file Social History Narrative ??? Not on file Family Status Relation Name Status ??? Mother ??? Father ??? Sister Alive ??? Brother Alive Family History Problem Relation Name Age of Onset ??? Cancer - Breast Mother ??? Cirrhosis Father ??? Cancer - Prostate Brother Current Outpatient Medications Medication ??? allopurinol (ZYLOPRIM) 300 MG tablet ??? aMILoride-hydroCHLOROthiazide (MODURETIC) 5-50 MG tablet ??? uowzxxfgjw-mixjbtqbfmhvo-bpgqvslm (FIORICET) 50-300-40 MG capsule ??? divalproex DR (DEPAKOTE) 500 MG tablet ??? donepezil (ARICEPT) 10 MG tablet ??? hydrOXYzine pamoate (VISTARIL) 50 MG capsule ??? meclizine (ANTIVERT) 25 MG tablet ??? modafinil (PROVIGIL) 200 MG tablet ??? Multiple Vitamin (MULTI VITAMIN DAILY PO) ??? NAPROXEN DR PO ??? Carmel-3 Fatty Acids (FISH OIL PO) ??? primidone (MYSOLINE) 50 MG tablet ??? sertraline (ZOLOFT) 100 MG tablet ??? testosterone cypionate (DEPO-TESTOTERONE) 200 MG/ML injection ??? venlafaxine XR 24hr (EFFEXOR XR) 75 MG capsule ??? VYVANSE 70 MG capsule No current facility-administered medications for this visit. EXAMINATION: There were no vitals taken for this visit. General: NO acute process. Neck supple. Neurological Examination: Mental Status: Awake, Alert. Oriented. Follows commands, Speech clear. Has good fund of knowledge, attention, comprehension and insight. Cranial Nerves: VFF grossly intact, Fundi NA and PERRL NA with telemedicine, EOMI, no ptosis, nystagmus or diplopia. Facial sensation intact bilaterally; Face symmetric, hearing intact bilaterally, palate symmetric Uvula, shoulder shrug symmetric, and tongue midline. Motor: Move all 4 limbs. Minimal tremor of bl UEs today. Sensation: appears to able to feel light touch. Reflexes: DTRs NA due to telemedicine. Coordination/Cerebellar: Intact to zrxwwf-gxxy-xhzset. Gait: walks steady. Station: steady. Imaging/Laboratory review: No results for input(s): SODIUM, POTASSIUM, CHLORIDE, CO2, BUN, CREATININE, GLUCOSE, CALCIUM in thelast 60583 hours. No results for input(s): WBC, HGB, HCT, PLTCOUNT in the last 80941 hours. Recent Labs Component Name 07/01/17 1325 TSH 1.04 Recent Labs Component Name 07/01/17 1325 CK 54 No results for input(s): PHENYTOIN in the last 03514 hours. No results for input(s): VPA in the last 95529 hours. No results for input(s): ALBUMIN, ALKPHOS, ALT, AST, TBIL, DBIL, TPROT in the last 98673 hours. No results for input(s): CHOL, TRIG, HDL, LDLCALC, LDLDIRECT in the last 74041 hours. No results for input(s): HGBA1C in the last 31468 hours. No results for input(s): JJKWKGCJ80 in the last 65449 hours. No results for input(s): AMMONIA in the last 61017 hours. No results for input(s): VVCFFHUOI3FK, YNHOTSPXFM5B, IXHZRNUQCS0C, WTOJJO5LR, HKJJJLSREQ4D in the last 33069 hours. Invalid input(s): EAXNLDOV5AX, ICERYQGD0EE, BAB8OYEA17, ZDXWRYTTPB4U, KOCEQOKQU6CV, FTEHUHVSP9FK No results for input(s): COLORUA, CLARITYUA, SPECGRAVUA, PHUA, PROTEINUA, BLOODUA, LEUKOCYTEUA, NITRITEUA, GLUCOSEUA, KETONEUA, BILIRUBINUA, UROBILINUA, REDSUBUA, WBCUA, RBCUA, EPITHUA, MUCUSUA, BACTUA, YEASTUA, TRICHUA in the last 71625 hours. No results for input(s): WBC, RBC, HGB, HCT, MCV, MCHC, RDW, RDWCV, PLTCOUNT, NEUTPCT, LYMPHPCT, MONOCYTPCT, EOSINPCT, BASOPHILPCT, GRANSIMMPCT, LYMPHABS, MONOCYTABS, EOSINABS, BASOABS, IMMGRANSABS, NRBCAUTO in the last 96122 hours. No results for input(s): SEDRATE in the last 71606 hours. No results for input(s): CRP in the last 89636 hours. No results for input(s): INR in the last 18620 hours. Imaging No results found. Impression: 1) Postconcussion syndrome 2) Posttraumatic headache 3)Memory loss Essential Tremor Stress Discussion: RYDER gone, short-term memory bad. Tremor not helped by primidone, Anger issue. Seeing a Counselor/psych. Had fall before. Still hand numbenss in fingertips, about the same, strength of hands about the same. . Progressiviely worsening,in memory loss. Dr. Tracy (psych) increased depakote Recently, concerning side effects with tremor, consider transition to carmadamsepine 200mg po tid if oK w his psych. Dr. Tracy. Suspecting part of his memory issue is due to stress/anger. Mr brain 04/30 no acute stroke, visualized with patient at Clinic today. + R mastoid infection. Was treated by ENT. eeg reports normal. CT brain visualized no acute intracranial process. CT angiogram: no significant carotid stenosis. Some cervical spinal stenosis. Repeat MR brain 11/29 reported right wing thickening. NO acute infarct. Repeat ct brain was normal. Carotid duplex: no sig. Stenosis. Pt updated about above. neuropsych 08/31 reported: mild cognitive impairment. [facility]: Recommend plating engineer eval for convergence assessment Update prescription for glasses after that ?? Per Luz Maria Chappell MD I made the following recommendations: consider transition depakote to carmadamsepine 200mg po tid if oK w his psych. Dr. Tracy. His is to call Dr. Tracy. neuropsyc reeval for any progession of memroy loss. Emg/ncv of bl UEs for numbness and weakness. Continue primidone 50mg po tid. Add 1 Pill every one to three days to target dose as tolerated. No driving when drowsy. Wean off nortriptyline slowly. aricept 10mg po qhs. PT F-u Pyschiatry. Fish oil. avoid head trauma. Fioricet prn. Advised about to avoid frequent pain medications to reduce chance of rebound headaches. Only use pain meds for severe headaches. Labs. emg/ncv of bl UEs. Neuropsych. Deferred memory eval and work up. Waiting for insurance. RTC 6 months. Accompanied by his . all questions answered. come to ER for neurologic deficit call for questions. This is a virtual telemedicine visit with 2 way audio and video interactions during COVID-19 PublicHealth Emergency requiring social distance. There is a stay-home order per [facility] effective 12/05/2019. Patient Verification & Telemedicine Based Consent I have verified this is the correct patient and have obtained verbal consent from the patient/surrogate to perform this inpatient telemedicine encounter evaluation. I have explained risks, benefits, alternatives, and the potential need for subsequent face to face care. Patient/surrogate understandsthat there is a risk of medical inaccuracies given that our recommendations will be made based on reported data. Knowing that there is a risk that this information is not reported accurately, and that the telemedicine audio, or data feed may be incomplete, the patient agrees to proceed with evaluation and holds us harmless knowing these risks. In this evaluation, we will be providing recommendations only. The patient/surrogate has been notified that other healthcare professionals may be involved in this audio evaluation. All laws concerning confidentiality and patient access to medical records and copies of medical records apply to telemedicine. I have reviewed this above verification and co nsent paragraph with the patient/surrogate. The prescribed medications were discussed with the patient. Dosage and usage was explained. Warnings in regard to side effects and adverse reactions were given. The patient was advised to contact theprescribing physician with questions or concerns. When applicable, the need, benefit and risk of procedures were explained in detail, agreeable with patient. I have spent sig. Time with this patient and more than 50% of that time was spent coordinating care, reviewing notes, imaging and laboratory results as well as discussion of the pathophysiology of disease process, diagnostic studies and prognosis of the diagnosed condition. All pertinent questions were answered to patient's satisfaction during this clinical visit. Patient is to closely follow with primary physician for the medical needs. Thank you for involving me in Wily Bahena's care Rosa Chow MD PhD documented in this encounter Miscellaneous Notes * Addendum Note - Gavin Fiore - 01/06/2020 7:52 AM CDTAddended by: GAVIN FIORE on: 01/06/2020 07:52 AM Modules accepted: Level of Service documented in this encounter Plan of Treatment Not on file documented as of this encounter Visit Diagnoses Diagnosis Memory loss- Primary Numbness Disturbance of skin sensation documented in this encounter Care Teams Slab Worker Relationship Specialty Start Date End Date Suman Monique DO PCP - General 04/20/18 01/30/21 documented as of this encounter
--- OUTSIDE RECORDS SUMMARY | 2024-09-03 07:50 | XMS_ITS | Encounter Summary ---
Author Organization [facility] Address [address] [facility] [place] [address] Care Team Providers Care Scrap Baller Name Role Phone Suman Monique DO Primary Care Provider [phone] Encounter Details Date Type Department Care Team (Latest Contact Info) Description 01/02/2020 Travel Social History Tobacco Use Types Packs/Day Years [...] AM CDT documented as of this encounter Plan of Treatment Not on file documented as of this encounter Visit Diagnoses Not on filedocumented in this encounter Care Teams Scrap Baller Relationship Specialty Start Date End Date Suman Monique DO PCP - General 04/20/18 01/30/21 documented as of this encounter
--- OUTSIDE RECORDS SUMMARY | 2024-09-03 07:50 | XMS_ITS | Encounter Summary ---
Author Organization [facility] Address [address] [facility] [place] [address] Care Team Providers Care Franchise Business Consultant Name Role Phone Rosa Chow MD Unavailable Johnathon Braga DO Primary Care Provider + Reason for Visit * Reason Comments Refill Request Encounter Details Date Type Department Care Team (Late st Contact Info) Description 08/12/2021 Refill [facility] [id number] [place] [phone] [place] [address] [address] Refill Request Social History Tobacco Use Types Packs/Day Years [...] encounter Miscellaneous Notes * Telephone Encounter - Danish Solano - 08/12/2021 2:00 PM CST Wily Bahena Allergies Allergen Reactions ??? Carbamazepine Rash and Swelling Requested Prescriptions Pending Prescriptions Disp Refills ??? donepezil (ARICEPT) 10 MG tablet [Pharmacy Med Name: DONEPEZIL HCL 10MG TABLET] 30 tablet 5 Sig: TAKE 1 (ONE) TABLET BY MOUTH AT BEDTIME LAST FILL: 02/12/21 LAST OV: 03/29/21 ING LATHE SET UP OPERATOR documented in this encounter Plan of Treatment Not on file documented as of this encounter Visit Diagnoses Diagnosis Memory loss documented in this encounter Care Teams Franchise Business Consultant Relationship Specialty Start Date End Date Johnathon Braga DO [address] [place] [id number] PCP - General Family Medicine Geriatric Medicine 01/31/21 [place] [address] [address] Neurology 01/09/20 documented as of this encounter
--- OUTSIDE RECORDS SUMMARY | 2024-09-03 07:50 | XMS_ITS | Encounter Summary ---
Author Organization [facility] Address [address] [facility] [place] [address] Care Team Providers Care Forensic Accountant Name Role Phone Suman Monique DO Primary Care Provider [phone] Rosa Chow MD Unavailable Reason for Visit * Reason Onset Date Comments MEDICATION REFILL 12/10/2020 Encounter Details Date Type Department Care Team (Late st Contact Info) Description 12/10/2020 Refill [facility] [address] [facility] [address] [place] [phone] [place] [address] [facility] [address] [place] [phone] MEDICATION REFILL Social History Tobacco Use Types Packs/Day Years Used Date Smoking Tobacco: Never Smokeless Tobacco: Never Alcohol Use Standard Drinks/Week Comments No 0 (1 standard drink = 0.6 oz pur e alcohol) Sex and Gender Information Value Date Recorded Sex Assigned at Not on file Gender Identity Not on file Sexual Orientation Not on file documented as of this encounter Plan of Treatment Not on file documented as of this encounter Visit Diagnoses Diagnosis Memory loss documented in this encounter Care Teams Forensic Accountant Relationship Specialty Start Date End Date Suman Monique DO PCP - General 04/20/18 01/30/21 [place] [address] [facility] [address] [place] [address] Neurology 4/27/20 documented as of this encounter
--- OUTSIDE RECORDS SUMMARY | 2024-09-03 07:50 | XMS_ITS | Encounter Summary ---
Author Organization [facility] Address [address] [facility] [place] [address] Care Team Providers Care Lvn Name Role Phone Suman Monique DO Primary Care Provider [phone] Encounter Details Date Type Department Care Team (Latest Contact Info) Description 11/22/2019 Travel Social History Tobacco Use Types Packs/Day [...] on filedocumented in this encounter Care Teams Lvn Relationship Specialty Start Date End Date Suman Monique DO PCP - General 04/20/18 01/30/21 documented as of this encounter
--- OUTSIDE RECORDS SUMMARY | 2024-09-03 07:50 | XMS_ITS | Encounter Summary ---
Author Organization [facility] Address [address] [facility] [place] [address] Care Team Providers Care Coupon And Bond Collection Clerk Name Role Phone Suman Monique DO Primary Care Provider [phone] Reason for Visit * Reason Comments Follow-up Encounter Details Date Type Department Care Team (Latest Contact Info) Description 06/03/2019 10:00 AM CDT Office Visit [facility] [address] [facility] [address] [place] [phone] [place] [id number] [id number] Postconcussion syndrome (Primary Dx); Benign essential tremor; Memory loss Social History Tobacco Use Types Packs/Day Years Used Date Smoking Tobacco: Never Smokeless Tobacco: Never Alcohol Use Standard Drinks/Week Comments No 0 (1 standard drink = 0.6 oz pur e alcohol) Sex and Gender Information Value Date Recorded Sex Assigned at Not on file Gender Identity Not on file Sexual Orientation Not on file documented as of this encounter Last Filed Vital Signs Vital Sign Reading Time Taken Comments Blood Pressure 130/78 06/03/2019 10:42 AM CDT Pulse 64 06/03/2019 10:42 AM CDT Temperature - - Respiratory Rate 17 06/03/2019 10:42 AM CDT Oxygen Saturation 94% 06/03/2019 10:42 AM CDT Inhaled Oxygen Concentration - - Weight 96.7 kg (213 lb 3.2 oz) 06/03/2019 10:42 AM CDT Height 180.3 cm (5' 11 ) 06/03/2019 10:42 AM CDT Body Mass Index 29.74 06/03/2019 10:42 AM CDT documented in this encounter Progress Notes * Dread Ayala MD - 06/03/2019 11:10 AM CDT 06/03/2019 Wily Bahena 63 year old Referring Physician: Dr. Suman Monique, DO RUSS Chief Complaint: Chief Complaint Patient presents with ??? Follow-up HPI: Wily Mclaughlin a 63 year old came for follow up of postconcussion syndrome. He still had memory loss, confusion, nightmares, anger issues, fatigue, poor balance, light sensitivity, blurry vision, irritability. He had some hand tremor when holding something. He did not feel Inderal helping. He also had shaking at night time. NO tongue biting or bowel/bladder incontinence. He had neck surgery by Dr. He, which has helped his headache. He fell a couple of times without pass-out, last one was3-4 month. . is on the frontal area, up to 3/10, aching pain without nausea, light and sound sensitivity. Nortriptyline 20mg QHS helped him, 30mg made him too sleepy. He had some memory loss. He still had dizziness with lightheadedness and blurry vision. He had some tremor of both hands since the first fall affecting him eating soup. The patient denies weakness, double- vision, slurred speech, incontinence of bowel bladder. There is no seizure-like events, no tongue biting.He is on disability. He had numbness in his hands/feet for about 2 months. He was lost for 12 hours at [place]. Past Medical History: Diagnosis Date ??? Depression ??? Gout ??? Kidney stones Past Surgical History: Procedure Laterality Date ??? Cervical Fusion 12/21/2017 ??? Hernia Repair 1973 Current Outpatient Medications Medication Sig Dispense Refill ??? allopurinol (ZYLOPRIM) 300 MG tablet Take 300 mg by mouth once daily ??? aMILoride-hydroCHLOROthiazide (MODURETIC) 5-50 MG tablet Take 1 Tab by mouth once daily ??? jxzpujmocw-jajngxmrionwm-wokrxkvz (FIORICET) 50-300-40 MG capsule Take 1 capsule by mouth every4 hours as needed for Headache 30 capsule 3 ??? divalproex DR (DEPAKOTE) 500 MG tablet Take 500 mg by mouth 2 times daily ??? hydrOXYzine pamoate (VISTARIL) 50 MG capsule [...] once daily Reasons: Centrium Silver 50+ ??? nortriptyline (PAMELOR) 10 MG capsule TAKE 3 CAPSULES BY MOUTH AT BEDTIME 90 capsule 0 ??? nortriptyline (PAMELOR) 10 MG capsule Take 2 capsules by mouth at bedtime 180 capsule 3 ??? Buffalo-3 Fatty Acids (FISH OIL PO) Take by mouth 2 times daily ??? propranolol CR 24hr (INDERAL LA) 80 MG capsule Take 1 capsule by mouth once daily 30 capsule 11 ??? sertraline (ZOLOFT) 100 MG tablet Take [...] Not on file Occupational History ??? 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 Financial resource strain: Not on file ??? Food insecurity: Worry: Not on file Inability: Not on file ??? Transportation needs: Medical: Not on file Non-medical: Not on file Tobacco Use ??? Smoking status: Never Smoker ??? Smokeless tobacco: Never Used Substance and Sexual Activity ??? Alcohol use: No ??? Drug use: No ??? Sexual activity: Not on file Lifestyle ??? Physical activity: Days per week: Not on file Minutes per session: Not on file ??? Stress: Not on file Relationships ??? Social connections: Talks on phone: Not on file Gets together: Not on file Attends rastafarian service: Not on file Active member of club or organization: Not on file Attends meetings of clubs or organizations: Not on file Relationship status: Not on file ??? Intimate partner violence: Fear of current or ex partner: Not on file Emotionally abused: Not on file Physically abused: Not on file Forced sexual activity: Not on file Other Topics Concern ??? Not on file Social History Narrative ??? Not on file Family Status Relation Name Status ??? Mother ??? Father ??? Sister Alive ??? Brother Alive Family History Problem Relation Age of Onset ??? Cancer - Breast Mother ??? Cirrhosis Father ??? Cancer - Prostate Brother Current Outpatient Medications Medication ??? allopurinol (ZYLOPRIM) 300 MG tablet ??? aMILoride-hydroCHLOROthiazide (MODURETIC) 5-50 MG tablet ??? bqcteroyks-ckmuqigmnirch-vmcxpgfi (FIORICET) 50-300-40 MG capsule ??? divalproex DR (DEPAKOTE) 500 MG tablet ??? hydrOXYzine pamoate (VISTARIL) 50 MG capsule ??? meclizine (ANTIVERT) 25 MG tablet ??? modafinil (PROVIGIL) 200 MG tablet ??? Multiple Vitamin (MULTI VITAMIN DAILY PO) ??? nortriptyline (PAMELOR) 10 MG capsule ??? nortriptyline (PAMELOR) 10 MG capsule ??? Buffalo-3 Fatty Acids (FISH OIL PO) ??? propranolol CR 24hr (INDERAL LA) 80 MG capsule ??? sertraline (ZOLOFT) 100 MG tablet ??? testosterone cypionate (DEPO-TESTOTERONE) 200 MG/ML injection ??? venlafaxine XR 24hr (EFFEXOR XR) 75 MG capsule ??? VYVANSE 70 MG capsule No current facility-administered medications for this visit. EXAMINATION: BP 130/78 Pulse 64 Resp 17 Ht 1.803 m (5' 11 ) Wt 96.7 kg (213 lb 3.2 oz) SpO2 94% BMI 29.74 kg/m2 General: General appearance: well developed, in no distress. Neck supple. CVS: No carotid bruit. Scalp laceration on top of his head on 03/23. Neurological Examination: Mental Status: Awake, Alert. Oriented. Follows commands, Speech clear. Has good fund of knowledge, attention, comprehension and insight. Cranial Nerves: VFF to confrontation, PERRL, EOMI, no ptosis, nystagmus or diplopia. Facial sensation intact bilaterally; Face symmetric, hearing intact bilaterally, palate symmetric Uvula, shoulder shrug symmetric,and tongue midline. Motor: Strength normal bl UEs/LEs. Minimal postural tremor. Normal tone. No atrophy. No Clonus. Sensation: Intact to light touch, temperature. Coordination/Cerebellar: Intact to vqalyr-nopp-iaqlho. Gait: walks heel and toe without difficulty, normal tandem gait and Romberg test. Station: steady. Imaging/Laboratory review: No results for input(s): SODIUM, POTASSIUM, CHLORIDE, CO2, BUN, CREATININE, GLUCOSE, CALCIUM in thelast 71722 hours. No results for input(s): WBC, HGB, HCT, PLTCOUNT in the last 93741 hours. Recent Labs Component Name 07/01/17 1325 TSH 1.04 Recent Labs Component Name 07/01/17 1325 CK 54 No results for input(s): PHENYTOIN in the last 35792 hours. No results for input(s): VPA in the last 72480 hours. No results for input(s): ALBUMIN, ALKPHOS, ALT, AST, TBIL, DBIL, TPROT in the last 10572 hours. No results for input(s): CHOL, TRIG, HDL, LDLCALC, LDLDIRECT in the last 51106 hours. No results for input(s): HGBA1C in the last 47853 hours. No results for input(s): TPAVFQSB44 in the last 00187 hours. No results for input(s): AMMONIA in the last 64874 hours. No results for input(s): HUETRLNFZ3DZ, GLCAHVPRHE2O, KHXCIHCGZL6S, RBROBW8MD, RZAXOJXAJG3C in the last 93086 hours. Invalid input(s): OUQWPOGW8QV, CQFMQWTQ5LJ, IMP6KOIP41, DXJZABUKNV7I, PVFGVDOKT7MI, ZAYFMHMVV7WA No results for input(s): COLORUA, CLARITYUA, SPECGRAVUA, PHUA, PROTEINUA, BLOODUA, LEUKOCYTEUA, NITRITEUA, GLUCOSEUA, KETONEUA, BILIRUBINUA, UROBILINUA, REDSUBUA, WBCUA, RBCUA, EPITHUA, MUCUSUA, BACTUA, YEASTUA, TRICHUA in the last 11395 hours. No results for input(s): WBC, RBC, HGB, HCT, MCV, MCHC, RDW, RDWCV, PLTCOUNT, NEUTPCT, LYMPHPCT, MONOCYTPCT, EOSINPCT, BASOPHILPCT, GRANSIMMPCT, LYMPHABS, MONOCYTABS, EOSINABS, BASOABS, IMMGRANSABS, NRBCAUTO in the last 23232 hours. No results for input(s): SEDRATE in the last 16808 hours. No results for input(s): CRP in the last 18366 hours. No results for input(s): INR in the last 90092 hours. Imaging No results found. Impression: 1) Postconcussion syndrome 2) Posttraumatic headache 3)Memory loss Essential Tremor Stress Discussion: Overall postconcussion syndrome is still not well controlled. Had 2 fall since last visits. Tremor better with inderal. Mr brain 04/30 no acute stroke, visualized [...] above. neuropsych 08/31 reported: mild cognitive impairment. [facility]: Recommend form tamping machine operator eval for convergence assessment Update prescription for glasses after that ?? Per Luz Maria Chappell MD I made the following recommendations: Change Inderal (wean off slowly) to primidone 50mg po tid. Add 1 Pill every one to three days to target dose as tolerated. No driving when drowsy. Wean off nortriptyline slowly. aricept 10mg po qhs. PT F-u Pyschiatry. Fish oil. avoid head trauma. Fioricet prn. Advised about to avoid frequent pain medications to reduce chance of rebound headaches. Only use pain meds for severe headaches. Labs. Deferred emg/ncv. Deferred memory eval and work up. Waiting for insurance. RTC 6 months. Accompanied by his . all questions answered. come to ER for neurologic deficit call for questions. The prescribed medications were discussed with the [...] for involving me in Wily Bahena's care Dread Ayala MD PhD documented in this encounter Miscellaneous Notes * Addendum Note - Dread Ayala MD - 06/03/2019 11:31 AM CDTAddended by: DREAD AYALA on: 06/03/2019 11:31 AM Modules accepted: Orders * Addendum Note - Dread Ayala MD - 06/03/2019 11:29 AM CDTAddended by: DREAD AYALA on: 06/03/2019 11:29 AM Modules accepted: Orders, Level of Service documented in this encounter Plan of Treatment Not on file documented as of this encounter Visit Diagnoses Diagnosis Postconcussion syndrome- Primary Benign essential tremor Essential and other specified forms of tremor Memory loss documented in this encounter Care Teams Coupon And Bond Collection Clerk Relationship Specialty Start Date End Date Suman Monique DO PCP - General 04/20/18 01/30/21 documented as of this encounter
--- OUTSIDE RECORDS SUMMARY | 2024-09-03 07:50 | XMS_ITS | Encounter Summary ---
Author Organization [facility] Address [address] [facility] [place] [address] Care Team Providers Care Manager Transition Name Role Phone Suman Monique DO Primary Care Provider [phone] Rosa Chow MD Unavailable Reason for Visit * Reason Comments Refill Request Encounter Details Date Type Department Care Team (Late st Contact Info) Description 09/10/2020 Refill [facility] Neurosciences [address] [facility] [address] [place] [phone] [place] [id number] [facility] [address] [place] [address] [place] [id number] Refill Request Social History Tobacco Use [...] loss documented in this encounter Care Teams Manager Transition Relationship Specialty Start Date End Date Suman Monique DO PCP - General 04/20/18 01/30/21 [place] [id number] [facility] [address] [place] [id number] Neurology 01/09/20 documented as of this encounter
--- OUTSIDE RECORDS SUMMARY | 2024-09-03 07:50 | XMS_ITS | Encounter Summary ---
Author Organization [facility] Address [address] [place] [address] Care Team Providers Care Glass Cleaning Machine Tender Name Role Phone Rosa Chow MD Unavailable Johnathon Braga DO Primary Care Provider + Reason for Visit * Reason Onset Date Comments Results 02/05/2021 Encounter Details Date Type Department Care Team (Late st Contact Info) Description 02/05/2021 Telephone [facility] [address] [place] [phone] [place] [phone] [address] Results Social History Tobacco Use Types Packs/Day Years [...] encounter Miscellaneous Notes * Telephone Encounter - Josie Childs - 02/06/2021 9:57 AM CDT Called pt to inform him of your response.Pt verbalized understanding. 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 Mild bilateral carpal tunnel syndrome. Left ulnar nerve entrapment elbow can referred to Hand surgery if interested. Otherwise protect the left elbow with elbow patch. I can see him back in about 2 months unless there is issue. Please verify with the patient whether he is currently on Lamictal and dosage. * Telephone Encounter - Josie Childs - 02/05/2021 11:10 AM CDT Received call Nayana pt's spouse wanting to know the results of pt EMG/NCV.Also Nayana wants to know ifyou want to see pt for follow up.Please advise. documented in this encounter Plan of Treatment Not on file documented as of this encounter Visit Diagnoses Not on filedocumented in this encounter Care Teams Glass Cleaning Machine Tender Relationship Specialty Start Date End Date Johnathon Braga DO [address] [place] [id number] PCP - General Family Medicine Geriatric Medicine 01/31/21 [place] [address] [place] [address] Neurology 01/09/20 documented as of this encounter
--- OUTSIDE RECORDS SUMMARY | 2024-09-03 07:50 | XMS_ITS | Encounter Summary ---
Author Organization [facility] Health Address [address] [place] [address] Care Team Providers Care Amusement Park Ride Mechanic Name Role Phone Rosa Chow MD Unavailable Johnathon Braga DO Primary Care Provider + Encounter Details Date Type Department Care Team (Late st Contact Info) Description 10/03/2021 12:00 PM RN LPN CNA Office Visit [facility] [id number] [place] [address] [place] [phone] [place] [id number] [address] Memory loss (Primary Dx) Social History Tobacco Use Types Packs/Day Years [...] Sign Reading Time Taken Comments Blood Pressure - - Pulse 65 10/03/2021 12:06 PM RN LPN CNA Temperature - - Respiratory Rate 17 10/03/2021 12:06 PM RN LPN CNA Oxygen Saturation 96% 10/03/2021 12:06 PM RN LPN CNA Inhaled Oxygen Concentration - - Weight 103 kg (227 lb) 10/03/2021 12:06 PM RN LPN CNA Height 180.3 cm (5' 11 ) 10/03/2021 12:06 PM RN LPN CNA Body Mass Index 31.66 10/03/2021 12:06 PM RN LPN CNA documented in this encounter Progress Notes * Rosa Chow MD - 10/03/2021 12:14 PM CST 10/03/2021 Wily Bahena 66 year old Referring Physician: Dr. Johnathon Braga DO MD Chief Complaint: f-u No chief complaint on file. HPI: Wily Mclaughlin a 66 year old came for follow up of postconcussion syndrome. Interval History: Has rare mild ryder. Anger throu the roof. CUT HIS RIGHT MIDDLE FINGER. Tremor about the same, and is on lamictal now. no dm, alcohol. Had neck surgery before. some lower back pain, headache is gone. Still has short term memory loss . Is not working. Had finger tip and toes numbness. Multiple phone calls have been made prior to this. History otherwise no sig. Changes below per my review. He still had memory loss, confusion, nightmares, anger issues, fatigue, irritability. He had some hand tremor when holding something. He also had shaking at night time. NO tongue biting or bowel/bladder incontinence.. The patient denies weakness, double-vision, slurred speech, incontinence of bowel bladder. There is no seizure-like events, no tongue biting.He is on disability. Past Medical History: Diagnosis Date ??? Depression ??? Gout ??? Kidney stones Past Surgical History: Procedure Laterality Date ??? Cervical Fusion 12/21/2017 ??? Hernia Repair 1973 Current Outpatient Medications Medication Sig Dispense Refill ??? allopurinol (ZYLOPRIM) 300 MG tablet Take 300 mg by mouth once daily ??? aMILoride-hydroCHLOROthiazide (MODURETIC) 5-50 MG tablet Take 1 Tab by mouth once daily (Patient not taking: Reported on 03/29/2021) ??? ctsgewzwpe-pxzagjcyagzbn-jtwlqavv (FIORICET) 50-300-40 MG capsule Take 1 capsule by mouth every4 hours as needed for Headache (Patient not taking: Reported on 03/29/2021) 30 capsule 3 ??? divalproex DR (DEPAKOTE) 500 MG tablet Take 500 mg by mouth 2 times daily (Patient not taking: Reported on 03/29/2021) ??? donepezil (ARICEPT) 10 MG tablet TAKE 1 (ONE) TABLET BY MOUTH AT BEDTIME 30 tablet 5 ??? hydrOXYzine pamoate (VISTARIL) [...] mouth once daily Reasons: Centrium Silver 50+ (Patient not taking: Reported on 03/29/2021) ??? NAPROXEN DR PO Take 20 mg by mouth 2 times daily (Patient not taking: Reported on 03/29/2021) ??? [place]-3 Fatty Acids (FISH OIL PO) Take by mouth 2 times daily ??? primidone (MYSOLINE) 50 MG tablet Take 1 tablet by mouth 3 times daily (Patient not taking: Reported on 03/29/2021) 90 tablet 0 ??? sertraline (ZOLOFT) 100 MG tablet Take 150 mg by mouth once daily ??? testosterone cypionate (DEPO-TESTOTERONE) 200 MG/ML injection Inject 1 mL into muscle every 14 days 5 ??? venlafaxine XR 24hr (EFFEXOR XR) 75 MG capsule Take 75 mg by mouth once daily 1 ??? VYVANSE 70 MG capsule Take 70 mg by mouth once daily (Patient not taking: Reported on 03/29/2021) 0 No current facility-administered medications for this visit. Allergies Allergen Reactions ??? Carbamazepine Rash and Swelling Social History Socioeconomic History ??? Marital status: Spouse name: Not on file ??? Number of children: 1 ??? Years of education: Not on file ??? Highest education level: Not on file Occupational History ??? 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 Smoking status: Never Smoker ??? Smokeless tobacco: Never Used Substance and Sexual Activity ??? Alcohol use: No ??? Drug use: No ??? Sexual activity: Not on file Other Topics Concern ??? Not on file Social History Narrative ??? Not on file Social Determinants of Health Financial Resource Strain: Not on file Food Insecurity: Not on file Transportation Needs: Not on file Physical Activity: Not on file Stress: Not on file Social Connections: Not on file Intimate Partner Violence: Not on file Housing Stability: Not on file Family Status Relation Name Status ??? Mother ??? Father ??? Sister Alive ??? Brother Alive Family History Problem Relation Name Age of Onset ??? Cancer - Breast Mother ??? Cirrhosis Father ??? Cancer - Prostate Brother Current Outpatient Medications Medication ??? allopurinol (ZYLOPRIM) 300 MG tablet ??? aMILoride-hydroCHLOROthiazide (MODURETIC) 5-50 MG tablet ??? dmdcqrpyzi-qxoezwpccguhg-dbuusuym (FIORICET) 50-300-40 MG capsule ??? divalproex DR (DEPAKOTE) 500 MG tablet ??? donepezil (ARICEPT) 10 MG tablet ??? hydrOXYzine pamoate (VISTARIL) 50 MG capsule ??? meclizine (ANTIVERT) 25 MG tablet ??? modafinil (PROVIGIL) 200 MG tablet ??? Multiple Vitamin (MULTI VITAMIN DAILY PO) ??? NAPROXEN DR PO ??? [place]-3 Fatty Acids (FISH OIL PO) ??? primidone (MYSOLINE) 50 MG tablet ??? sertraline (ZOLOFT) 100 MG tablet ??? testosterone cypionate (DEPO-TESTOTERONE) 200 MG/ML injection ??? venlafaxine XR 24hr (EFFEXOR XR) 75 MG capsule ??? VYVANSE 70 MG capsule No current facility-administered medications for this visit. EXAMINATION: Pulse 65 Resp 17 Ht 1.803 m (5' 11 ) Wt 57.6 kg (127 lb) SpO2 96% BMI 17.71 kg/m2 General: NO acute process. Neck supple. Neurological Examination: Mental Status: Awake, Alert. Oriented. Follows commands, Speech clear. Has good fund of knowledge, attention, comprehension and insight. Cranial Nerves: VFF grossly intact, Fundi NA and PERRL, EOMI, no ptosis, nystagmus or diplopia. Facial sensation intact bilaterally; Face symmetric, hearing intact bilaterally, palate symmetric Uvula, shoulder shrugsymmetric, and tongue midline. Motor:4+/5 bl UEs/LEs. NO tremor of bl UEs today. Sensation: appears to able to feel light touch. Reflexes: DTRs 2+ bl biceps. Kjs, 1+ bl AJs. downgoing toes bl. Coordination/Cerebellar: Intact to epaflr-syyz-gvwskg. Gait: walks steady. Station: steady. Imaging/Laboratory review: No results for input(s): SODIUM, POTASSIUM, CHLORIDE, CO2, BUN, CREATININE, GLUCOSE, CALCIUM in thelast 41451 hours. No results for input(s): WBC, HGB, HCT, PLTCOUNT in the last 65828 hours. Recent Labs Component Name 07/01/17 1325 TSH 1.04 Recent Labs Component Name 07/01/17 1325 CK 54 No results for input(s): PHENYTOIN in the last 53001 hours. No results for input(s): VPA in the last 74410 hours. No results for input(s): ALBUMIN, ALKPHOS, ALT, AST, TBIL, DBIL, TPROT in the last 14925 hours. No results for input(s): CHOL, TRIG, HDL, LDLCALC, LDLDIRECT in the last 64277 hours. No results for input(s): HGBA1C in the last 48783 hours. No results for input(s): KERJMTLF48 in the last 95680 hours. No results for input(s): AMMONIA in the last 32867 hours. No results for input(s): QNMKGIFBH7YV, OWLYBKNEUU4E, CYBFDXKFMQ9X, QVGUUL3AY, CRHQKFBHRD4H in the last 91992 hours. Invalid input(s): RXHXEXHF0DN, AQDDARYZ4OM, DFL8VDMR90, GBUBKJUDYL7Z, OBYEWNBVL2BB, VZXXEKCNV9BN No results for input(s): COLORUA, CLARITYUA, SPECGRAVUA, PHUA, PROTEINUA, BLOODUA, LEUKOCYTEUA, NITRITEUA, GLUCOSEUA, KETONEUA, BILIRUBINUA, UROBILINUA, REDSUBUA, WBCUA, RBCUA, EPITHUA, MUCUSUA, BACTUA, YEASTUA, TRICHUA in the last 12284 hours. No results for input(s): WBC, RBC, HGB, HCT, MCV, MCHC, RDW, RDWCV, PLTCOUNT, NEUTPCT, LYMPHPCT, MONOCYTPCT, EOSINPCT, BASOPHILPCT, GRANSIMMPCT, LYMPHABS, MONOCYTABS, EOSINABS, BASOABS, IMMGRANSABS, NRBCAUTO in the last 24174 hours. No results for input(s): SEDRATE in the last 91956 hours. No results for input(s): CRP in the last 52588 hours. No results for input(s): INR in the last 00871 hours. Imaging No results found. Impression: 1) Postconcussion syndrome 2) Posttraumatic headache 3)MCI Essential Tremor Stress Discussion:has rare mild ryder.anger thru the roof, sees psych and to f-u adam. Overall seems better. No Tremor on exam today. RYDER better. Seeing a Counselor/psych. Mr brain 04/30 no acute stroke, visualized [...] above. neuropsych 08/31 reported: mild cognitive impairment. neuropsych 06/03 reported: mild cognitive impairment.concerned about mood. Multiple notes, labs, and images visualized. 12/02 B12/tsh normal. [facility]: Recommend stopboard assembler eval for convergence assessment Update prescription for glasses after that ?? Per Luz Maria Chappell MD B12/tsh normal. Emg/ncv:02/01 This is abnormal study. ?? 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 ?? Left ulnar nerve entrapment at the elbow. ?? 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 ?? Bilateral sensory carpal tunnel syndrome. ?? Left median nerve slow likely related to the carpal tunnel syndrome. neuroapthy preacution. I made the following recommendations: DEFFERED NEUROPSYCH EVAL. Pending ortho st lu note. Off primidone . MVI. WEIGHT LOSS MPROGRAM Reportedly on lamictal per his psych Dr. Tracy aricept 10mg po qhs. PT F-u Pyschiatry for anger issue. Fish oil. avoid head trauma. Fioricet prn. Advised about to avoid frequent pain medications to reduce chance of rebound headaches. Only use pain meds for severe headaches. Pt's family memberwife at encounter today, updated and all questions answered. RTC 6 months. .come to ER for neurologic deficit call for questions. I have spent sig. Time with this patient , performing chart prep, review of data and visit with thepatient. Time was also spent coordinating care, reviewing notes, imaging and laboratory results as well as discussion of the pathophysiology of disease process, medication benefit vs risks, diagnostic studies and prognosis of the diagnosed condition. The prescribed medications were discussed with the patient. Dosage and usage was explained. Warnings in regard to side effects and adverse reactions were given. The patient was advised to contact theprescribing physician with questions or concerns. When applicable, the need, benefit and risk of procedures were explained in detail, agreeable with patient. All pertinent questions were answered to patient's satisfaction during this clinical visit. Patient is to closely follow with primary physician for the medical needs. Thank you for involving me in Wily Bahena's care Rosa Chow MD PhD LPN CNA documented in this encounter Plan of Treatment Not on file documented as of this encounter Visit Diagnoses Diagnosis Memory loss- Primary documented in this encounter Care Teams Amusement Park Ride Mechanic Relationship Specialty Start Date End Date Johnathon Braga DO [address] [place] [phone] PCP - General Family Medicine Geriatric Medicine 01/31/21 [place] [address] [place] [address] Neurology 01/09/20 documented as of this encounter
--- OUTSIDE RECORDS SUMMARY | 2024-09-03 07:50 | XMS_ITS | Encounter Summary ---
Author Organization [facility] Health Address [address] [facility] [place] [address] Care Team Providers Care Brass Cleaner Name Role Phone Rosa Chow MD Unavailable Johnathon Braga DO Primary Care Provider + Reason for Visit * Reason Onset Date Comments Question 06/03/2021 Encounter Details Date Type Department Care Team (Late st Contact Info) Description 06/03/2021 Telephone [facility] PHYS SURGERY [address] [place] [phone] Otf Bell MD [address] [facility] [address] [facility] [place] [address] Question Social History Tobacco Use Types Packs/Day [...] encounter Miscellaneous Notes * Telephone Encounter - Otf Bell MD - 06/03/2021 3:56 PM CDT PLASTIC SURGERY PLAN OF CARE UPDATE Discussed with attending Dr. Carrasquillo. Images and OSH physical exam reviewed. Given the nature of the injury, we would prefer to evaluate the patient in our ED to ensure viability of the affected digit. However, we are unable to offer the option for revascularization of the digit if the need arose. [facility] is currently on TCD. Therefore, we are unable to transfer to our ED for formal evaluation. We discussed with the OSH physician that if they are sure the digit is viable, then we would be happy to see the patient in our clinic in 1-2 weeks. If there is a question of the digits viability, we recommend transferring to an OSH who has revascularization capability. OSH prefers the latter option. Di scussed with ED attending Dr. Mason. All calls were made through the transfer center and recorded. Otf Bell MD 06/03/2021 4:00 PM documented in this encounter Plan of Treatment Not on file documented as of this encounter Visit Diagnoses Not on filedocumented in this encounter Care Teams Brass Cleaner Relationship Specialty Start Date End Date Johnathon Braga DO [address] [place] [phone] PCP - General Family Medicine Geriatric Medicine 01/31/21 [place] [address] [place] [address] Neurology 01/09/20 documented as of this encounter
--- OUTSIDE RECORDS SUMMARY | 2024-09-03 07:50 | XMS_ITS | Encounter Summary ---
Author Organization [facility] Address [address] [facility] [place] [address] Care Team Providers Care Supervisor Keymodule Assembly Name Role Phone Rosa Chow MD Unavailable Johnathon Braga DO Primary Care Provider + Encounter Details Date Type Department Care Team (Latest Contact Info) Description 03/29/2021 Travel Social History Tobacco Use Types Packs/Day [...] have Coronavirus / COVID-19? No / Unsure 03/29/2021 12:32 PM CDT documented as of this encounter Plan of Treatment Not on file documented as of this encounter Visit Diagnoses Not on filedocumented in this encounter Care Teams Supervisor Keymodule Assembly Relationship Specialty Start Date End Date Johnathon Braga DO [address] [place] [phone] PCP - General Family Medicine Geriatric Medicine 01/31/21 [place] [address] [address] Neurology 01/09/20 documented as of this encounter
--- OUTSIDE RECORDS SUMMARY | 2024-09-03 07:50 | XMS_ITS | Encounter Summary ---
Author Organization [facility] Address [address] [place] [address] Care Team Providers Care Bond Underwriter Name Role Phone Rosa Chow MD Unavailable Johnathon Braga DO Primary Care Provider + Reason for Visit * Reason Comments Refill Request Encounter Details Date Type Department Care Team (Late st Contact Info) Description 11/14/2022 Refill [facility] Neurosciences [address] [phone] [place] [address] [facility] [address] [place] [address] Refill Request Social History Tobacco Use [...] loss documented in this encounter Care Teams Bond Underwriter Relationship Specialty Start Date End Date Johnathon Braga DO [address] [place] [address] PCP - General Family Medicine Geriatric Medicine 01/31/21 [place] [address] [facility] [address] [place] [address] Neurology 01/09/20 documented as of this encounter
--- OUTSIDE RECORDS SUMMARY | 2024-09-03 07:50 | XMS_ITS | Encounter Summary ---
Author Organization [facility] Address [address] [place] [address] Care Team Providers Care Sterilization Specialist Name Role Phone Suman Monique DO Primary Care Provider [phone] Rosa Chow MD Unavailable Reason for Visit * Reason Onset Date Comments Medication Problem 02/13/2020 Encounter Details Date Type Department Care Team (Late st Contact Info) Description 02/13/2020 Telephone [facility] Neurosciences [address] [phone] [place] [address] [address] Medication Problem Social History Tobacco Use Types Packs/Day Years [...] * Telephone Encounter - Danish Solano - 02/13/2020 1:51 PM CDT Spoke with pt she stated they have tried that it did not work. I also informed her to follow up with PCP * Telephone Encounter - Rosa Chow MD - 02/13/2020 11:17 AM CDT She need see a wildlife refuge specialist if not improving. Can try otc benadryl pill and steroids cream. * Telephone Encounter - Danish Solaon - 02/13/2020 11:12 AM CDT Pt has made follow up and understood per Dr. Chow note, Pt spouse requesting medication to help with the rash and itching preferably stronger Prednisone Please advise * Telephone Encounter - Rosa Chow MD - 02/13/2020 10:52 AM CDT Slim carmaamzepoine as allergy.stop carbamazepine . He can go back to his prior depakote for now. Set up f-u appointment per note. Can go through zoom.us vs doxy.me * Telephone Encounter - Danish Solano - 02/13/2020 8:51 AM CDT Pt called and stated since pt has started Carbamezine his entire body has broken out in a rashhands,feet, and face are swollen, but he is not having difficulty breathing. He went to the ER on Thursday where he was prescribed Prednisone, but it has not help. Pt has not taken medication since Thursday Please Advise documented in this encounter Plan of Treatment Not on file documented as of this encounter Visit Diagnoses Not on filedocumented in this encounter Care Teams Sterilization Specialist Relationship Specialty Start Date End Date Suman Monique DO PCP - General 04/20/18 01/30/21 [place] [address] [place] [address] Neurology 01/09/20 documented as of this encounter
--- OUTSIDE RECORDS SUMMARY | 2024-09-03 07:50 | XMS_ITS | Encounter Summary ---
Author Organization [facility] Address [address] [place] [address] Care Team Providers Care Telecommunication Operator Name Role Phone Suman Monique DO Primary Care Provider [phone] Rosa Chow MD Unavailable Reason for Referral * Neurology (Routine) - Closed Specialty Diagnoses / Procedures Referred By Contelis t Referred To Contact Neuroscience Diagnoses Numbness Procedures EMG [place] [address] [address] [place] [phone] Dphc Nsi Diag Mob [phone] [address] [place] [address] Referral ID Status Reason Start Date Expiration Date Visits Re quested Visits Authorized [id number] Closed 12/14/2020 12/14/2021 1 1 Encounter Details Date Type Department Care Team (Latest Contact Info) Description 12/14/2020 11:20 AM CDT Video Visit [facility] Neurosciences [address] [facility] [address] [place] [phone] [place] [address] [address] [place] [address] Postconcussion syndrome ; Numbness Social History Tobacco Use Types Packs/Day Years Used Date Smoking Tobacco: Never Smokeless Tobacco: Never Alcohol Use Standard Drinks/Week Comments No 0 (1 standard drink = 0.6 oz pur e alcohol) Sex and Gender Information Value Date Recorded Sex Assigned at Not on file Gender Identity Not on file Sexual Orientation Not on file documented as of this encounter Progress Notes * Rosa Chow MD - 12/14/2020 11:37 AM CDT 12/14/2020 Wily Bahena 65 year old Referring Physician: Dr. Suman Monique DO MD Chief Complaint: f-u No chief complaint on file. HPI: Wily Mclaughlin a 65 year old came for follow up of postconcussion syndrome. Interval History: Had dizziness with vertigo and was evaluated at ER. CT brain was told to be unremarkable. He is following with PCP and get PT. NO more dizziness today. He is on meclizine now. Tremor is not well controlled. Anxiety/anger is off chart. Depakote was increased, but level is notup. 1000mg qam, 1500mg qhs. Had rashes to tegretol. Had finger tip and toes numbness for about 1 yr. Did not get emg/ncv. Multiple phone calls have been made prior to this. His BP drops. On nudexter. History otherwise no sig. Changes below per [...] 1 Tab by mouth once daily ??? zsjkzhvlfc-ionruwxqrkxoi-ssuvhqyd (FIORICET) 50-300-40 MG capsule Take 1 capsule by mouth every4 hours as needed for Headache 30 capsule 3 ??? divalproex DR (DEPAKOTE) 500 MG tablet Take 500 mg by mouth 2 times daily ??? donepezil (ARICEPT) 10 MG tablet Take 1 (one) tablet by mouth at bedtime 30 tablet 0 ??? hydrOXYzine pamoate (VISTARIL) 50 MG capsule [...] mg by mouth 2 times daily ??? Cook Sta-3 Fatty Acids (FISH OIL PO) Take by mouth 2 times daily ??? primidone (MYSOLINE) 50 MG tablet Take 1 tablet by mouth 3 times daily 90 tablet 0 ??? sertraline (ZOLOFT) 100 [...] Not on file Occupational History ??? 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 Financial resource strain: Not [...] file Gets together: Not on file Attends sikhism service: Not on file Active member of [...] ??? aMILoride-hydroCHLOROthiazide (MODURETIC) 5-50 MG tablet ??? myumhmutyx-kkyprbtlmlgog-laiwgpey (FIORICET) 50-300-40 MG capsule ??? divalproex DR (DEPAKOTE) 500 MG tablet ??? donepezil (ARICEPT) 10 MG tablet ??? hydrOXYzine pamoate (VISTARIL) 50 MG capsule ??? meclizine (ANTIVERT) 25 MG tablet ??? modafinil (PROVIGIL) 200 MG tablet ??? Multiple Vitamin (MULTI VITAMIN DAILY PO) ??? NAPROXEN DR PO ??? Cook Sta-3 Fatty Acids (FISH OIL PO) ??? primidone [...] tongue midline. Motor: Move all 4 limbs. NO tremor of bl UEs today. Sensation: appears to able to feel light touch. Reflexes: DTRs NA due to telemedicine. Coordination/Cerebellar: Intact to arqyqx-adkr-sqauww. Gait: walks steady. Station: steady. Imaging/Laboratory review: No results for input(s): SODIUM, POTASSIUM, CHLORIDE, CO2, BUN, CREATININE, GLUCOSE, CALCIUM in thelast 11063 hours. No results for input(s): WBC, HGB, HCT, PLTCOUNT in the last 51808 hours. Recent Labs Component Name 07/01/17 1325 TSH 1.04 Recent Labs Component Name 07/01/17 1325 CK 54 No results for input(s): PHENYTOIN in the last 39119 hours. No results for input(s): VPA in the last 32945 hours. No results for input(s): ALBUMIN, ALKPHOS, ALT, AST, TBIL, DBIL, TPROT in the last 60633 hours. No results for input(s): CHOL, TRIG, HDL, LDLCALC, LDLDIRECT in the last 00250 hours. No results for input(s): HGBA1C in the last 02126 hours. No results for input(s): XFQLZKDH60 in the last 33315 hours. No results for input(s): AMMONIA in the last 42627 hours. No results for input(s): VOOBYEWYN3UA, ZLPMPHWBJG0A, HDUOSCMICW2J, JRPXHG7CI, CBDVKNPOSB7S in the last 95655 hours. Invalid input(s): HOCXXYFW3KL, LMTCFNBN1AW, IPM8ZCQE99, DNIXCWWFUR8I, IVTZTVOIS5OG, NWDBOBACD4RZ No results for input(s): COLORUA, CLARITYUA, SPECGRAVUA, PHUA, PROTEINUA, BLOODUA, LEUKOCYTEUA, NITRITEUA, GLUCOSEUA, KETONEUA, BILIRUBINUA, UROBILINUA, REDSUBUA, WBCUA, RBCUA, EPITHUA, MUCUSUA, BACTUA, YEASTUA, TRICHUA in the last 13813 hours. No results for input(s): WBC, RBC, HGB, HCT, MCV, MCHC, RDW, RDWCV, PLTCOUNT, NEUTPCT, LYMPHPCT, MONOCYTPCT, EOSINPCT, BASOPHILPCT, GRANSIMMPCT, LYMPHABS, MONOCYTABS, EOSINABS, BASOABS, IMMGRANSABS, NRBCAUTO in the last 54767 hours. No results for input(s): SEDRATE in the last 13617 hours. No results for input(s): CRP in the last 80680 hours. No results for input(s): INR in the last 11838 hours. Imaging No results found. Impression: 1) Postconcussion syndrome 2) Posttraumatic headache 3)MCI Essential Tremor Stress Discussion: Had dizziness with vertigo and was evaluated at ER. He is following with PCP and get PT. NO more dizziness today. He is on meclizine now. Tremor is not well controlled. Anxiety/anger is off chart. Depakote was increased, but level is notup. 1000mg qam, 1500mg qhs. Had rashes to tegretol. Had finger tip and toes numbness for about 1 yr. Did not emg/ncv. Multiple phone calls have been made prior to this. His BP drops. On nudexter. RYDER better. Seeing a Counselor/psych. Dr. Tracy (psych) increased depakote Recently, concerning side effects with tremor, consider transition to lamictal if oK w his psych. Dr. Tracy. [...] labs, and images visualized. 12/02 B12/tsh normal. [facility]: Recommend fundraising coordinator eval for convergence assessment Update prescription for glasses after that ?? Per Luz Maria Chappell MD I made the following recommendations: neuropsyc reeval for any progession of memroy loss. Emg/ncv of bl UE/LEs for numbness and weakness. Off primidone . Consider switch depakote to lamicatal (25mg increase weeklyto 100mg po bid), he had appt w Dr. Rossana carvalho 1 week ( wrote down med). aricept 10mg po qhs. PT F-u Pyschiatry. Fish oil. avoid head trauma. Fioricet prn. Advised about to avoid frequent pain medications to reduce chance of rebound headaches. Only use pain meds for severe headaches. Labs. Neuropsych. Deferred memory eval and work up. Waiting for insurance. RTC 1 months. Accompanied by his adrián. all questions answered. come to ER for neurologic deficit call for questions. I have spent over 40 minutes with this patient , performing chart prep, review of data and visit with the patient. Time was also spent coordinating care, reviewing notes, imaging and laboratory results as well as discussion of the pathophysiology of disease process, medication benefit vs risks, diagnostic studies and prognosis of the diagnosed condition. This is a virtual telemedicine visit with 2 way audio and video interactions during [facility]. There is a stay-home order per [facility] effective 12/05/2019. Patient Verification & Telemedicine Based [...] Chow MD PhD documented in this encounter Plan of Treatment Not on file documented as of this encounter Results * EMG WITH NERVE CONDUCTION STUDY (01/31/2021 11:44 AM CDT) Narrative Rosa Chow MD - 01/31/2021 11:44 AM CDT Rosa Chow MD ? 02/03/2021 ??2:19 PM [facility] Neurosciences [facility] [address] , [address] [address] Test Date: ??01/31/2021 Patient: Wily Bahena : 1955 Physician: Rosa Chow MD Sex: Male Height: 5' 11 Ref Phys: ?? ID#: [id number] Weight: 228 lbs. ?? Patient Complaints: Patient is a 65 year old male who was referred to rule out a neuropathy. Patient presents with complaints of numbness in the bilateral upper and lower extremities. ??Symptoms have been present for 1 year. Physical Exam: Medications: NCV & EMG Findings: ? ? Evaluation of the left median motor nerve showed decreased conduction velocity (Elbow-Wrist, 46 m/s). ? ? The left peroneal motor, the right peroneal motor, the left tibial motor, and the right tibial motor nerves showed reduced amplitude (L2.5, R2.2, L1.1, R2.4 mV). ? ? The left Sup Peroneal sensory and the right Sup Peroneal sensory nerves showed no response (14 cm) and no response (Site 2). ? ? The left sural sensory and the right sural sensory nerves showed no response (Calf) and no response (Site 2). ? ? The left median/ulnar (palm) comparison nerve showed no response (Ulnar Palm) and prolonged distal peak latency (3.2 ms). ? ? The right median/ulnar (palm) comparison nerve showed prolonged distal peak latency (Median Palm, 2.7 ms). ? ? All remaining nerves (as indicated in the following tables) were within normal limits. ? ? Left vs. Right side comparison data for the tibial motor nerve indicates abnormal L-R amplitude difference (54.2 %). ? ? All remaining left vs. right side differences were within normal limits. ? ? F Wave studies indicate that the left peroneal F wave has prolonged latency (56.32 ms). ? ? The right peroneal F wave has no response. ? ? The left tibial F wave has prolonged latency (61.77 ms). ? ? The right tibial F wave has prolonged latency (61.77 ms). ? ? All remaining F Wave latencies were within normal limits. ? ? All F Wave left vs. right side latency differences were within normal limits. ? ? Needle evaluation of the right deltoid, the right abductor pollicis brevis, the right anterior tibialis, the right extensor digitorum brevis, and the left extensor digitorum brevis muscles showed increased motor unit amplitude, increased motor unit duration, diminished recruitment, and moderately decreased interference pattern. ? ? The right biceps, the right triceps, the right gastroc, the left vastus medialis, the left anterior tibialis, the left triceps, and the left abductor pollicis brevis muscles showed increased motor unit amplitude and increased motor unit duration. ? ? All remaining muscles (as indicated in the following table) showed no evidence of electrical instability. Impression: This is abnormal study. 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 Left ulnar nerve entrapment at the elbow. 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 Bilateral sensory carpal tunnel syndrome. Left median nerve slow likely related to the carpal tunnel syndrome. Clinical correlations. Rosa Chow MD Nerve Conduction Studies Anti Sensory Summary Table Stim Site NR Peak (ms) Norm Peak (ms) P-T Amp (??V) Norm P-T Amp Site1 Site2 Delta-P (ms) Dist (cm) Missael (m/s) Norm Missael (m/s) Left Radial Anti Sensory (Base 1st Digit) Wrist ?2.3 <3.1 10.0 ??Wrist Base 1st Digit 2.3 0.0 ?? Site 2 ?2.3 ??6.9 ? Right Radial Anti Sensory (Base 1st Digit) Wrist ?2.8 <3.1 12.5 ??Wrist Base 1st Digit 2.8 0.0 ?? Site 2 ?2.7 ??12.2 ? Left Sup Peroneal Anti Sensory (Ant Lat Mall) 14 cm *NR ??<4.4 ??>5.0 14 cm Ant Lat Mall ??14.0 ?? Site 2 *NR ? Right Sup Peroneal Anti Sensory (Ant Lat Mall) 14 cm *NR ??<4.4 ??>5.0 14 cm Ant Lat Mall ??14.0 ?? Site 2 *NR ? Left Sural Anti Sensory (Lat Mall) Calf *NR ??<4.0 ??>5.0 Calf Lat Mall ??14.0 ?? Site 2 *NR ? Right Sural Anti Sensory (Lat Mall) Calf *NR ??<4.0 ??>5.0 Calf Lat Mall ??14.0 ?? Site 2 *NR ? Motor Summary Table Stim Site NR Onset (ms) Norm Onset (ms) O-P Amp (mV) Norm O-P Amp Amp (Prev) (%) Site1 Site2 Delta-0 (ms) Dist (cm) Missael (m/s) Norm Missael (m/s) Left Median Motor (Abd Poll Brev) Wrist ?3.4 <4.4 9.6 >5 100.0 Elbow Wrist 5.6 26.0 *46 >50 Elbow ?9.0 ??9.1 ??94.8 ? Right Median Motor (Abd Poll Brev) Wrist ?3.5 <4.4 7.2 >5 100.0 Elbow Wrist 5.3 27.0 51 >50 Elbow ?8.8 ??6.7 ??93.1 ? Left Peroneal Motor (Ext Dig Brev) Ankle ?5.2 <6.1 *2.5 >2.5 100.0 B Fib Ankle 7.5 35.5 47 >38 B Fib ?12.7 ??2.2 ??88.0 Poplt B Fib 1.9 10.0 53 >40 Poplt ?14.6 ??2.1 ??95.5 ? Right Peroneal Motor (Ext Dig Brev) Ankle ?4.8 <6.1 *2.2 >2.5 100.0 B Fib Ankle 8.8 36.0 41 >38 B Fib ?13.6 ??1.8 ??81.8 Poplt B Fib 2.3 10.0 43 >40 Poplt ?15.9 ??1.7 ??94.4 ? Left Tibial Motor (Abd Lutz Brev) Ankle ?4.7 <6.1 *1.1 >3.0 100.0 Knee Ankle 10.3 46.0 45 >35 Knee ?15.0 ??1.6 ??145.5 ? Right Tibial Motor (Abd Lutz Brev) Ankle ?6.0 <6.1 *2.4 >3.0 100.0 Knee Ankle 11.7 46.0 39 >35 Knee ?17.7 ??0.8 ??33.3 ? Left Ulnar Motor (Abd Dig Minimi) Wrist ?3.0 <4.2 8.2 >3 100.0 B Elbow Wrist 3.9 22.0 56 >53 B Elbow ?6.9 ??7.9 ??96.3 A Elbow B Elbow 2.2 10.0 45 ?? A Elbow ?9.1 ??7.5 ??94.9 ? Right Ulnar Motor (Abd Dig Minimi) Wrist ?2.5 <4.2 8.9 >3 100.0 B Elbow Wrist 4.0 22.0 55 >53 B Elbow ?6.5 ??8.6 ??96.6 A Elbow B Elbow 1.9 10.0 53 ?? A Elbow ?8.4 ??8.4 ??97.7 ? Comparison Summary Table Stim Site NR Peak (ms) Norm Peak (ms) P-T Amp (??V) Site1 Site2 Delta-P (ms) Norm Delta (ms) Left Median/Ulnar Palm Comparison (Wrist - 8cm) Median Palm ?*3.2 <2.2 28.3 Median Palm Ulnar Palm ?? Ulnar Palm *NR ??<2.2 ? Right Median/Ulnar Palm Comparison (Wrist - 8cm) Median Palm ?*2.7 <2.2 6.0 Median Palm Ulnar Palm 0.7 ?? Ulnar Palm ?2.0 <2.2 8.1 ? F Wave Studies NR F-Lat (ms) Lat Norm (ms) L-R F-Lat (ms) L-R Lat Norm Left Median (Mrkrs) (Abd Poll Brev) ?? 30.91 <31.3 0.00 <2.2 Right Median (Mrkrs) (Abd Poll Brev) ?? 30.91 <31.3 0.00 <2.2 Left Peroneal (Mrkrs) (EDB) ?? *56.32 <54.3 ??<5.1 Right Peroneal (Mrkrs) (EDB) *NR ??<54.3 ??<5.1 Left Tibial (Mrkrs) (Abd Hallucis) ?? *61.77 <57.8 0.00 <5.7 Right Tibial (Mrkrs) (Abd Hallucis) ?? *61.77 <57.8 0.00 <5.7 Left Ulnar (Mrkrs) (Abd Dig Min) ?? 31.03 <31.7 0.00 <2.5 Right Ulnar (Mrkrs) (Abd Dig Min) ?? 31.03 <31.7 0.00 <2.5 EMG Side Muscle Nerve Root Ins Act Fibs Psw Fasc Amp Dur Poly Recrt Int Pat Comment Right Deltoid Axillary C5-6 Nml Nml Nml Nml *Incr *>12ms 0 *Reduced *75% no dm, alcohol. had nk sx. some l bk pn Right Biceps Musculocut C5-6 Nml Nml Nml Nml *Incr *>12ms 0 Nml Nml ryder gone.shot term still bad. no change w neuropsych. Right Triceps Radial C6-7-8 Nml Nml Nml Nml *Incr *>12ms 0 Nml Nml 2+, 1=AJ, dongin toes. 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 Right Abd Poll Brev Median C8-T1 Nml Nml Nml Nml *Incr *>12ms 0 *Reduced *75% ?? Right VastusMed Femoral L2-4 Nml Nml Nml Nml Nml Nml 0 Nml Nml ?? Right AntTibialis Dp Br Peron L4-5 Nml Nml Nml Nml *Incr *>12ms 0 *Reduced *75% ?? Right Gastroc Tibial S1-2 Nml Nml Nml Nml *Incr *>12ms 0 Nml Nml ?? Right Ext Dig Brev Dp Br Peron L5, S1 Nml Nml Nml Nml *Incr *>12ms 0 *Reduced *75% ?? Left BicepsFemS Sciatic L5-S1 Nml Nml Nml Nml Nml Nml 0 Nml Nml ?? Right BicepsFemS Sciatic L5-S1 Nml Nml Nml Nml Nml Nml 0 Nml Nml ?? Left VastusMed Femoral L2-4 Nml Nml Nml Nml *Incr *>12ms 0 Nml Nml ?? Left AntTibialis Dp Br Peron L4-5 Nml Nml Nml Nml *Incr *>12ms 0 Nml Nml ?? Left Gastroc Tibial S1-2 Nml Nml Nml Nml Nml Nml 0 Nml Nml ?? Left Ext Dig Brev Dp Br Peron L5, S1 Nml Nml Nml Nml *Incr *>12ms 0 *Reduced *75% ?? Left Deltoid Axillary C5-6 Nml Nml Nml Nml Nml Nml 0 Nml Nml ?? Left Biceps Musculocut C5-6 Nml Nml Nml Nml Nml Nml 0 Nml Nml ?? Left Triceps Radial C6-7-8 Nml Nml Nml Nml *Incr *>12ms 0 Nml Nml Left 1stDorInt Ulnar C8-T1 Nml Nml Nml Nml Nml Nml 0 Nml Nml ?? Left Abd Poll Brev Median C8-T1 Nml Nml Nml Nml *Incr *>12ms 0 Nml Nml ?? Nerve Conduction Studies Anti Sensory Left/Right Comparison Stim Site L Lat (ms) R Lat (ms) L-R Lat (ms) L Amp (??V) R Amp (??V) L-R Amp (%) Site1 Site2 L Missael (m/s) R Missael (m/s) L-R Missael (m/s) Radial Anti Sensory (Base 1st Digit) Wrist 2.3 2.8 0.5 10.0 12.5 20.0 Wrist Base 1st Digit ? Site 2 2.3 2.7 0.4 6.9 12.2 43.4 ? Sup Peroneal Anti Sensory (Ant Lat Mall) 14 cm ? 14 cm Ant Lat Mall ? Site 2 ? Sural Anti Sensory (Lat Mall) Calf ? Calf Lat Mall ? Site 2 ? Motor Left/Right Comparison Stim Site L Lat (ms) R Lat (ms) L-R Lat (ms) L Amp (mV) R Amp (mV) L-R Amp (%) Site1 Site2 L Missael (m/s) R Missael (m/s) L-R Missael (m/s) Median Motor (Abd Poll Brev) Wrist 3.4 3.5 0.1 9.6 7.2 25.0 Elbow Wrist *46 51 5 Elbow 9.0 8.8 0.2 9.1 6.7 26.4 ? Peroneal Motor (Ext Dig Brev) Ankle 5.2 4.8 0.4 *2.5 *2.2 12.0 B Fib Ankle 47 41 6 B Fib 12.7 13.6 0.9 2.2 1.8 18.2 Poplt B Fib 53 43 10 Poplt 14.6 15.9 1.3 2.1 1.7 19.0 ? Tibial Motor (Abd Lutz Brev) Ankle 4.7 6.0 1.3 *1.1 *2.4 *54.2 Knee Ankle 45 39 6 Knee 15.0 17.7 2.7 1.6 0.8 50.0 ? Ulnar Motor (Abd Dig Minimi) Wrist 3.0 2.5 0.5 8.2 8.9 7.9 B Elbow Wrist 56 55 1 B Elbow 6.9 6.5 0.4 7.9 8.6 8.1 A Elbow B Elbow 45 53 8 A Elbow 9.1 8.4 0.7 7.5 8.4 10.7 ? Comparison Left/Right Comparison Stim Site L Lat (ms) R Lat (ms) L-R Lat (ms) L Amp (??V) R Amp (??V) L-R Amp (%) Median/Ulnar Palm Comparison (Wrist - 8cm) Median Palm *3.2 *2.7 0.5 28.3 6.0 78.8 Ulnar Palm ??2.0 ?? 8.1 ?? Waveforms: ? Rosa Chow MD NEUROLOGY ORDERABLES documented in this encounter Visit Diagnoses Diagnosis Postconcussion syndrome- Primary Numbness Disturbance of skin sensation Numbness Disturbance of skin sensation documented in this encounter Care Teams Telecommunication Operator Relationship Specialty Start Date End Date Suman Monique DO PCP - General 04/20/18 01/30/21 [place] [address] DELEON [address] [place] [address] Neurology 01/09/20 documented as of this encounter
--- OUTSIDE RECORDS SUMMARY | 2024-09-03 07:50 | XMS_ITS | Encounter Summary ---
Author Organization [facility] Address [address] [place] [address] Care Team Providers Care Shear Scrapman Name Role Phone Suman Monique DO Primary Care Provider [phone] Rosa Chow MD Unavailable Reason for Visit * Reason Comments Refill Request Encounter Details Date Type Department Care Team (Late st Contact Info) Description 07/09/2020 Refill [facility] Neurosciences [address] [facility] [address] [place] [phone] [place] [address] [place] [address] Refill Request Social History Tobacco Use [...] loss documented in this encounter Care Teams Shear Scrapman Relationship Specialty Start Date End Date Suman Monique DO PCP - General 04/20/18 01/30/21 [place] [address] [facility] [address] [address] [place] [address] Neurology 01/09/20 documented as of this encounter
--- OUTSIDE RECORDS SUMMARY | 2024-09-03 07:50 | XMS_ITS | Encounter Summary ---
Author Organization [facility] Address [address] [facility] [address] Care Team Providers Care Emotional Support Teacher Name Role Phone Suman Monique DO Primary Care Provider [phone] Reason for Visit * Reason Comments Refill Request Encounter Details Date Type Department Care Team (Late st Contact Info) Description 04/16/2019 Refill [facility] [id number] [place] [phone] [place] [address] [address] Refill Request Social History Tobacco [...] encounter Miscellaneous Notes * Telephone Encounter - Selena Patel MA - 04/18/2019 8:36 AM CDT Wily Bahena No Known Allergies Requested Prescriptions Pending Prescriptions Disp Refills ??? nortriptyline (PAMELOR) 10 MG capsule [Pharmacy Med Name: NORTRIPTYLINE 10MG CAPSULES] 90 capsule 0 Sig: TAKE 3 CAPSULES BY MOUTH AT BEDTIME LAST FILL: 07/11/18 LAST OV: scheduled 06/03/19 documented in this encounter Plan of Treatment Not on file documented as of this encounter Visit Diagnoses Not on filedocumented in this encounter Care Teams Emotional Support Teacher Relationship Specialty Start Date End Date Suman Monique DO PCP - General 04/20/18 01/30/21 documented as of this encounter
--- OUTSIDE RECORDS SUMMARY | 2024-09-03 07:50 | XMS_ITS | Encounter Summary ---
Author Organization [facility] Address [address] [facility] [place] [address] Care Team Providers Care Key Account Executive Name Role Phone Suman Monique DO Primary Care Provider [phone] Reason for Visit * Reason Comments Headache Blurred Vision Encounter Details Date Type Department Care Team (Latest Contact Info) Description 07/29/2018 11:30 AM ADA ACCOMMODATION CONSULTANT Office Visit [facility] Ophthalmology [address] [place] [address] Lulu Calero Postconcussion syndrome (Primary Dx); Post-traumatic headache, not intractable, unspecified chronicity pattern; Convergence insufficiency; Visual disturbance Social History Tobacco Use Types Packs/Day Years Used Date Smoking Tobacco: Never Smokeless Tobacco: Never Alcohol Use Standard Drinks/Week Comments No 0 (1 standard drink = 0.6 oz pur e alcohol) Sex and Gender Information Value Date Recorded Sex Assigned at Not on file Gender Identity Not on file Sexual Orientation Not on file documented as of this encounter Progress Notes * Lulu Calero - 08/02/2018 7:25 AM CST Impression: 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 His npc has improved since he first saw Dr Chappell but the amplitudes are diminished. Also has a head tilt to the right and slight chin elevation but his neck was injured in the fall and he is s/p neck surgery last December which has helped his headaches. Did not bring glasses so could not accurately assess amplitudes or prism requirements. His uncorrected visual acuity is borderline for driving, and he admits to driving short distances sc although road signs are blurred. His old SVL glasses make the dash loom up at him (no adds) and the newer PALs are too blurred. He is having anger and anxiety issues and has been told he is a candidate for sz. He has been prescribed depakote in the past couple of days. He is now on disability. Plan: Return next week to see GR with his glasses. He also has a frame purchased elsewhere and will bring this in case we need to prescribe separate readers. gr Reviewed chart, agree with curtain supervisor's impression and plan. Patient was not seen by an attending. Luz Maria Chappell MD 08/18/2018 ACCOMMODATION CONSULTANT documented in this encounter Plan of Treatment Not on file documented as of this encounter Visit Diagnoses Diagnosis Postconcussion syndrome- Primary Post-traumatic headache, not intractable, unspecified chronicity pattern Convergence insufficiency Convergence insufficiency or palsy in binocular eye movement Visual disturbance Unspecified visual disturbance documented in this encounter Care Teams Key Account Executive Relationship Specialty Start Date End Date Suman Monique DO PCP - General 04/20/18 01/30/21 documented as of this encounter
--- OUTSIDE RECORDS SUMMARY | 2024-09-03 07:50 | XMS_ITS | Encounter Summary ---
Author Organization [facility] Health Address [address] [facility] [place] [address] Care Team Providers Care Production Cloth Cutter Name Role Phone Rosa Chow MD Unavailable Johnathon Braga DO Primary Care Provider + Reason for Visit * Reason Onset Date Comments General 06/03/2021 Transfer line ca ll Encounter Details Date Type Department Care Team (Late st Contact Info) Description 06/03/2021 Telephone [facility] PHYS SURGERY [address] [place] [address] Africa Patrick MD [address] [place] [address] General (Transfer line call) Social History Tobacco Use Types Packs/Day Years [...] encounter Miscellaneous Notes * Telephone Encounter - Africa Patrick MD - 06/03/2021 11:23 AM CDT PLASTIC SURGERY / HAND SURGERY / MICROSURGERY PATIENT PHONE CALL Wily Magdalena Bahena : 1955 CSN: [id number] Date of service: 06/03/2021 Reason for phone call: Transfer center call Received a transfer line call and spoke with Keon at [facility] ED. Reports that this 65 yo male injured right himself with table saw. Injured long finger volar surface overlying the PIPJ. Per report, patient able to flex finger and states that sensation is intact. Tetanus and ancef given at OSH. Had OSH physician send me photos of the XRs, the wound, and put a pulse ox on the long finger XRs: Unicondylar fracture of the long finger proximal phalanx with comminution and lack of bone stock Wound: radial sided wound Pulse ox: 94% Told physician that as long as medically stable for transfer from his perspective, we would be happy to evaluate this patient in the emergency department to assess the extent of injury and need for surgery. Patient would benefit from hand evaluation. Africa Patrick MD 06/03/2021 11:24 AM Plastic Surgery Resident, PGY-5 Nights (5pm-7am) and weekends, please call [phone] and ask the contour path tape mill operator to page the plastic surgery resident field artillery operations specialist. documented in this encounter Plan of Treatment Not on file documented as of this encounter Visit Diagnoses Not on filedocumented in this encounter Care Teams Production Cloth Cutter Relationship Specialty Start Date End Date Johnathon Braga DO [address] [place] [address] PCP - General Family Medicine Geriatric Medicine 01/31/21 [place] [address] [address] Neurology 01/09/20 documented as of this encounter
--- OUTSIDE RECORDS SUMMARY | 2024-09-03 07:50 | XMS_ITS | Encounter Summary ---
Author Organization [facility] Health Address [address] [facility] [place] [address] Care Team Providers Care Strap Cutting Machine Operator Name Role Phone Suman Monique DO Primary Care Provider [phone] Rosa Chow MD Unavailable Reason for Visit * Reason Onset Date Comments MEDICATION REFILL 09/10/2020 Encounter Details Date Type Department Care Team (Late st Contact Info) Description 09/10/2020 Refill [facility] Neurosciences [address] [place] [phone] [place] [address] [address] MEDICATION REFILL Social History Tobacco Use [...] encounter Miscellaneous Notes * Telephone Encounter - Rosa Chow MD - 09/12/2020 3:12 PM CST Set up f-u face to face appointment per note if feasible. Can go through zoom.us vs doxy.me on my video days such as Thursday. ESS SUPERVISOR * Telephone Encounter - Teresa Mandujano MA - 09/10/2020 2:34 PM CST Wily Bahena Allergies Allergen Reactions ??? Carbamazepine Rash and Swelling Requested Prescriptions Pending Prescriptions Disp Refills ??? primidone (MYSOLINE) 50 MG tablet 90 tablet 5 Sig: Take 1 tablet by mouth 3 times daily ??? donepezil (ARICEPT) 10 MG tablet 30 tablet 0 Sig: Take 1 tablet by mouth at bedtime LAST FILL: 07/17/20 LAST OV: 01/05/20. Video visit ESS SUPERVISOR documented in this encounter Plan of Treatment Not on file documented as of this encounter Visit Diagnoses Diagnosis Benign essential tremor Essential and other specified forms of tremor Memory loss documented in this encounter Care Teams Strap Cutting Machine Operator Relationship Specialty Start Date End Date Suman Monique DO PCP - General 04/20/18 01/30/21 [place] [address] [address] Neurology 01/09/20 documented as of this encounter
--- OUTSIDE RECORDS SUMMARY | 2024-09-03 07:50 | XMS_ITS | Encounter Summary ---
Author Organization [facility] Address [address] [facility] [place] [address] Care Team Providers Care Mitten Sewer Name Role Phone Suman Monique DO Primary Care Provider [phone] Rosa Chow MD Unavailable Reason for Visit * Reason Comments Refill Request Encounter Details Date Type Department Care Team (Late st Contact Info) Description 10/15/2020 Refill [facility] Neuroscience[address] [address] [place] [address] [address] Refill Request Social History Tobacco [...] Telephone Encounter - Rosa Chow MD - 10/18/2020 2:42 PM CST Set up f-u face to face appointment per note if feasible. Can go through zoom.us vs doxy.me on my video days such as Thursday. E ENGINEER * Telephone Encounter - Nick Meza - 10/18/2020 10:33 AM CST Last refill 12-20-20 Last OV 01-05-20 E ENGINEER documented in this encounter Plan of Treatment Not on file documented as of this encounter Visit Diagnoses Diagnosis Memory loss documented in this encounter Care Teams Mitten Sewer Relationship Specialty Start Date End Date Suman Monique DO PCP - General 04/20/18 01/30/21 [place] [address] [address] Neurology 01/09/20 documented as of this encounter
--- OUTSIDE RECORDS SUMMARY | 2024-09-03 07:50 | XMS_ITS | Encounter Summary ---
Author Organization [facility] Address [address] [facility] [place] [address] Care Team Providers Care Farm Equipment Engineer Name Role Phone Suman Monique DO Primary Care Provider [phone] Rosa Chow MD Unavailable Reason for Visit * Reason Comments Refill Request Encounter Details Date Type Department Care Team (Late st Contact Info) Description 06/11/2020 Refill [facility] Neuroscience [id number] [place] [phone] [place] [address] [address] Refill Request Social History Tobacco [...] Telephone Encounter - Rosa Chow MD - 06/12/2020 3:08 PM CDT Set up f-u face to face appointment per note if feasible. Can go through zoom.us vs doxy.me * Telephone Encounter - Stephanie Barroso MA - 06/12/2020 10:56 AM CDT Wily Bahena Allergies Allergen Reactions ??? Carbamazepine Rash and Swelling Requested Prescriptions Pending Prescriptions Disp Refills ??? donepezil (ARICEPT) 10 MG tablet [Pharmacy Med Name: DONEPEZIL 10MG TAB 10.000 MG TABLET] 30 tablet 0 Sig: TAKE ONE TABLET BY MOUTH AT BEDTIME LAST FILL: 05/09/2020 LAST OV: 06/03/19 documented in this encounter Plan of Treatment Not on file documented as of this encounter Visit Diagnoses Diagnosis Memory loss documented in this encounter Care Teams Farm Equipment Engineer Relationship Specialty Start Date End Date Suman Monique DO PCP - General 04/20/18 01/30/21 [place] [address] [address] Neurology 01/09/20 documented as of this encounter
--- OUTSIDE RECORDS SUMMARY | 2024-09-03 07:50 | XMS_ITS | Referral Summary ---
Author Organization [facility] Address [address] [place] [address] Care Team Providers Care Consulting Solution Manager Name Role Phone Rosa Chow MD Unavailable Johnathon Braga DO Primary Care Provider + Source Comments [facility],non-owned Affiliates and Associated Physician Practices is amultiple site organization consisting of ambulatory clinics and hospital sitesin [place], [place], [place] and [place]. This disclosure is being madepursuant to the Care Everywhere program and may not contain all information available regarding this patient. Last updated 18.[facility] Allergies Active Allergy Reactions Criticality Noted Date Comments Carbamazepine Rash,Swelling High 02/13/2020 Medications * Be aware that medications may not be up to date on this document. Alwaysverify current medications with the patient. Medication Sig Dispensed Refills Start Date End Date Status allopurinol (ZYLOPRIM) 300 MG tablet Take 300 mg by mouth once daily Active aMILoride-hydroCHLO ROthiazide (MODURETIC) 5-50 MG tablet Take 1 Tab by mouth once daily Active sertraline (ZOLOFT) 100 MG tablet Take 150 mg by mouth once daily Active meclizine (ANTIVERT) 25 MG tablet Take 25 mg by mouth 3 times daily as needed 0 06/09/2017 Active testosterone cypionate (DEPO-TESTOTERONE) 200 MG/ML injection Inject 1 mL into muscle every 14 days 5 06/09/2017 Active Multiple Vitamin (MULTI VITAMIN DAILY PO)Indications:Cent rium Silver 50+ Take 1 tablet by mouth once daily Reasons: Centrium Silver 50+ Active butalbital-acetamin ophen-caffeine (FIORICET) 50-300-40 MG capsuleIndications: Postconcussion syndrome,Post-traum atic headache, not intractable, unspecified chronicity pattern Take 1 capsule by mouth every 4 hours as needed for Headache 30 capsule 3 06/24/2017 Active Additional Information Patient not taking.Reported on 03/29/2021 VYVANSE 70 MG capsule Take 70 mg by mouth once daily 0 11/21/2017 Active hydrOXYzine pamoate (VISTARIL) 50 MG capsule Take 1 capsule by mouth 3 times daily as needed 0 10/05/2017 Active Callaway-3 Fatty Acids (FISH OIL PO) Take by mouth 2 times daily Active venlafaxine XR 24hr (EFFEXOR XR) 75 MG capsule Take 75 mg by mouth once daily 1 05/10/2018 Active modafinil (PROVIGIL) 200 MG tablet Take 200 mg by mouth every morning Active NAPROXEN DR PO Take 20 mg by mouth 2 times daily Active primidone (MYSOLINE) 50 MG tabletIndications:B enign essential tremor Take 1 tablet by mouth 3 times daily 90 tablet 09/12/2020 Active Additional Information Patient not taking.Reported on 03/29/2021 donepezil (ARICEPT) 10 MG tabletIndications:M arlene loss Take 1 (one) tablet by mouth at bedtime 90 tablet 3 10/03/2021 Active Active Problems Problem Noted Date Diagnosed Date Benign essential tremor 06/04/2018 Convergence insufficiency 04/21/2018 Visual disturbance 04/20/2018 Vision loss 12/02/2017 Fall 07/01/2017 Postconcussion syndrome 06/24/2017 Post-traumatic headache, not intractable 017 Social History Tobacco Use Types Packs/Day Years Used Date Smoking Tobacco: Never Smokeless Tobacco: Never Alcohol Use Standard Drinks/Week Comments No 0 (1 standard drink = 0.6 oz pur e alcohol) Sex and Gender Information Value Date Recorded Sex Assigned at Not on file Gender Identity Not on file Sexual Orientation Not on file Last Filed Vital Signs Vital Sign Reading Time Taken Comments Blood Pressure 122/82 03/29/2021 12:00 PM CDT Pulse 65 10/03/2021 12:06 PM MINE CAR MECHANIC Temperature 36.7 ??C (98.1 ??F) 10/10/2017 10:[address] Respiratory Rate 17 10/03/2021 12:06 PM MINE CAR MECHANIC Oxygen Saturation 96% 10/03/2021 12:06 PM MINE CAR MECHANIC Inhaled Oxygen Concentration - - Weight 103 kg (227 lb) 10/03/2021 12:06 PM MINE CAR MECHANIC Height 180.3 cm (5' 11 ) 10/03/2021 12:06 PM MINE CAR MECHANIC Body Mass Index 31.66 10/03/2021 12:06 PM MINE CAR MECHANIC Plan of Treatment Not on file Advance Directives Documents on File Type Date Recorded Patient Wrinkle Chaser Expl anation Adv Directive/Living Will/POA 12/02/2017 POA - KACY ROJAS [facility] Care Teams Consulting Solution Manager Relationship Specialty Start Date End Date Johnathon Braga DO [address] [place] [address] PCP - General Family Medicine Geriatric Medicine 01/31/21 [place] [address] [place] [address] Neurology 01/09/20
--- OUTSIDE RECORDS SUMMARY | 2024-09-03 07:50 | XMS_ITS | Encounter Summary ---
Author Organization [facility] Health Address [address] [place] [address] Care Team Providers Care Livestock Breeder Name Role Phone Suman Monique DO Primary Care Provider [phone] Reason for Visit * Reason Onset Date Comments Order Information Change 08/31/2018 Encounter Details Date Type Department Care Team (Late st Contact Info) Description 08/31/2018 Telephone [facility] [address] [facility] [address] [place] [phone] Jessica Arnold Order Information Change Social History Tobacco Use Types Packs/Day Years [...] encounter Miscellaneous Notes * Telephone Encounter - Madai Barros - 09/02/2018 2:33 PM CST Physical therapy orders faxed to [phone] per request of the pt's . LIAN JAIL OFFICER * Telephone Encounter - Rosa Chow MD - 09/02/2018 11:59 AM CST No particular recommendation from a neuropsychology evaluation, only concerned about driving. Head they recommended his drive assessment by family's members periodically. Only local driving. Ordered. LIAN JAIL OFFICER * Telephone Encounter - Maria Del Carmen Martines - 09/01/2018 4:26 PM CST Called spoke with abby Kraus's , who stated that they are currently getting financial help from [facility] and would like for the therapy orders sent there. Please review neuropsych test to see whatkind of therapy the patient will need. Thanks. LIAN JAIL OFFICER * Telephone Encounter - Jessica Arnold - 08/31/2018 4:00 PM CST Nayana Bahena ( of Wily Bahena) called and said you should have received a report stating Wily needs speech therapy. Dr Sinan Friedman sent the report but he can't submit the script. It needs to come from Dr Chow. Can dr Chow put that in? It will need to be faxed to [phone] and the therapist's name is Kalpesh. If you need further explanation from the [facility], please call [phone] LIAN JAIL OFFICER documented in this encounter Plan of Treatment Not on file documented as of this encounter Visit Diagnoses Diagnosis Postconcussion syndrome- Primary documented in this encounter Care Teams Livestock Breeder Relationship Specialty Start Date End Date Suman Monique DO PCP - General 04/20/18 01/30/21 documented as of this encounter
--- OUTSIDE RECORDS SUMMARY | 2024-09-03 07:50 | XMS_ITS | Encounter Summary ---
Author Organization [facility] Health Address [address] [facility] [place] [address] Care Team Providers Care Pharmacy Teacher Name Role Phone Rosa Chow MD Unavailable Johnathon Braga DO Primary Care Provider + Encounter Details Date Type Department Care Team (Late st Contact Info) Description 01/31/2021 10:20 AM CDT Office Visit [facility] Neurosciences [address] [place] [phone] [place] [address] [address] Benign essential tremor (Primary Dx); Memory loss; Postconcussion syndrome Social History Tobacco Use Types Packs/Day Years [...] Sign Reading Time Taken Comments Blood Pressure 146/80 01/31/2021 12:37 PM CDT Pulse 79 01/31/2021 12:37 PM CDT Temperature - - Respiratory Rate 16 01/31/2021 12:37 PM CDT Oxygen Saturation 94% 01/31/2021 12:37 PM CDT Inhaled Oxygen Concentration - - Weight 102.1 kg (225 lb) 01/31/2021 12:37 PM CDT Height 180.3 cm (5' 11 ) 01/31/2021 12:37 PM CDT Body Mass Index 31.38 01/31/2021 12:37 PM CDT documented in this encounter Progress Notes * Rosa Chow MD - 01/31/2021 10:20 AM CDT 01/31/2021 Wily Bahena 65 year old Referring Physician: Dr. Johnathon Braga DO MD Chief Complaint: f-u No chief complaint on file. HPI: Wily Mclaughlin a 65 year old came for follow up of postconcussion syndrome. Interval History: Tremor about the same, and is on lamictal now. no dm, alcohol. Had neck surgery before. some lower back pain, headache is gone. Still has short term memory loss . Is not working, and he can cut grasses. Had finger tip and toes numbness. Today for emg/ncv. Multiple phone calls have been made [...] 1 Tab by mouth once daily ??? zjygklbjhz-rxmmizazawevj-pirxzwde (FIORICET) 50-300-40 MG capsule Take 1 capsule by mouth every4 hours as needed for Headache 30 capsule 3 ??? divalproex DR (DEPAKOTE) 500 MG tablet Take 500 mg by mouth 2 times daily ??? donepezil (ARICEPT) 10 MG tablet TAKE 1 (ONE) TABLET BY MOUTH AT BEDTIME 30 tablet 0 ??? hydrOXYzine pamoate (VISTARIL) [...] mg by mouth 2 times daily ??? Webber-3 Fatty Acids (FISH OIL PO) Take by [...] Not on file Occupational History ??? 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 Smoking status: Never Smoker ??? Smokeless tobacco: Never Used Substance and Sexual Activity ??? Alcohol use: No ??? Drug use: No ??? Sexual activity: Not on file Other Topics Concern ??? Not on file Social History Narrative ??? Not on file Social Determinants of Health Financial Resource Strain: ??? Difficulty of Paying Living Expenses: Food Insecurity: ??? Worried About Running Out of Food in the Last Year: ??? Ran Out of Food in the Last Year: Transportation Needs: ??? Lack of Transportation (Medical): ??? Lack of Transportation (Non-Medical): Physical Activity: ??? Days of Exercise per Week: ??? Minutes of Exercise per Session: Stress: ??? Feeling of Stress : Social Connections: ??? Frequency of Communication with Friends and Family: ??? Frequency of Social Gatherings with Friends and Family: ??? Attends Restoration Services: ??? Active Member of Clubs or Organizations: ??? Attends Club or Organization Meetings: ??? Marital Status: Intimate Partner Violence: ??? Fear of Current or Ex-Partner: ??? Emotionally Abused: ??? Physically Abused: ??? Sexually Abused: Family Status Relation Name Status ??? Mother ??? Father ??? Sister Alive ??? Brother Alive Family History Problem Relation Name Age of Onset ??? Cancer - Breast Mother ??? Cirrhosis Father ??? Cancer - Prostate Brother Current Outpatient Medications Medication ??? allopurinol (ZYLOPRIM) 300 MG tablet ??? aMILoride-hydroCHLOROthiazide (MODURETIC) 5-50 MG tablet ??? lrohdblzef-ntwpnemgrowkl-gfozebrl (FIORICET) 50-300-40 MG capsule ??? divalproex DR (DEPAKOTE) 500 MG tablet ??? donepezil (ARICEPT) 10 MG tablet ??? hydrOXYzine pamoate (VISTARIL) 50 MG capsule ??? meclizine (ANTIVERT) 25 MG tablet ??? modafinil (PROVIGIL) 200 MG tablet ??? Multiple Vitamin (MULTI VITAMIN DAILY PO) ??? NAPROXEN DR PO ??? Webber-3 Fatty Acids (FISH OIL PO) ??? primidone [...] AJs. downgoing toes bl. Coordination/Cerebellar: Intact to zuoslk-fhti-obiwls. Gait: walks steady. Station: steady. Imaging/Laboratory review: No results for input(s): SODIUM, POTASSIUM, CHLORIDE, CO2, BUN, CREATININE, GLUCOSE, CALCIUM in thelast 62039 hours. No results for input(s): WBC, HGB, HCT, PLTCOUNT in the last 20897 hours. Recent Labs Component Name 07/01/17 1325 TSH 1.04 Recent Labs Component Name 07/01/17 1325 CK 54 No results for input(s): PHENYTOIN in the last 42604 hours. No results for input(s): VPA in the last 05426 hours. No results for input(s): ALBUMIN, ALKPHOS, ALT, AST, TBIL, DBIL, TPROT in the last 71510 hours. No results for input(s): CHOL, TRIG, HDL, LDLCALC, LDLDIRECT in the last 21805 hours. No results for input(s): HGBA1C in the last 04990 hours. No results for input(s): QGBWCZPW89 in the last 95374 hours. No results for input(s): AMMONIA in the last 24183 hours. No results for input(s): PTYFASAKZ5KN, SRQWZPQETF5W, KHBIVWWRJJ9K, HAJRLL6EB, AEUFCOUJVF7W in the last 63774 hours. Invalid input(s): SYWZTZGK1SN, MHZWJNSB9WD, SSL3EKPD36, ZDNQKJNYVV7N, JQZZWPQFG2IG, XLTJZOSEU2ZK No results for input(s): COLORUA, CLARITYUA, SPECGRAVUA, PHUA, PROTEINUA, BLOODUA, LEUKOCYTEUA, NITRITEUA, GLUCOSEUA, KETONEUA, BILIRUBINUA, UROBILINUA, REDSUBUA, WBCUA, RBCUA, EPITHUA, MUCUSUA, BACTUA, YEASTUA, TRICHUA in the last 89535 hours. No results for input(s): WBC, RBC, HGB, HCT, MCV, MCHC, RDW, RDWCV, PLTCOUNT, NEUTPCT, LYMPHPCT, MONOCYTPCT, EOSINPCT, BASOPHILPCT, GRANSIMMPCT, LYMPHABS, MONOCYTABS, EOSINABS, BASOABS, IMMGRANSABS, NRBCAUTO in the last 11616 hours. No results for input(s): SEDRATE in the last 19970 hours. No results for input(s): CRP in the last 61643 hours. No results for input(s): INR in the last 63689 hours. Imaging No results found. Impression: 1) Postconcussion syndrome 2) Posttraumatic headache 3)MCI Essential Tremor Stress Discussion: Overall seems better. No Tremor on exam [...] labs, and images visualized. 12/02 B12/tsh normal. [facility]: Recommend ballpoint pen assembly machine operator eval for convergence assessment Update prescription for glasses after that ?? Per Luz Maria Chappell MD B12/tsh normal. I made the following recommendations: Emg/ncv of bl UE/LEs for numbness and weakness today. Off primidone . Reportedly on lamictal per his psych Dr. Tracy aricept 10mg po qhs. PT F-u Pyschiatry. Fish oil. avoid head trauma. Fioricet prn. Advised about to avoid frequent pain medications to reduce chance of rebound headaches. Only use pain meds for severe headaches. Neuropsych. RTC 2 months. .come to ER for neurologic deficit [...] Thank you for involving me in Wily Oneillmary jane's care Rosa Chow MD PhD documented in this encounter Plan of Treatment Not on file documented as of this encounter Visit Diagnoses Diagnosis Benign essential tremor- Primary Essential and other specified forms of tremor Memory loss Postconcussion syndrome documented in this encounter Care Teams Pharmacy Teacher Relationship Specialty Start Date End Date Johnathon Braga DO [address] [place] [address] PCP - General Family Medicine Geriatric Medicine 01/31/21 [place] [address] [place] [address] Neurology 01/09/20 documented as of this encounter
--- OUTSIDE RECORDS SUMMARY | 2024-09-03 07:50 | XMS_ITS | Encounter Summary ---
Author Organization [facility] Address [address] [facility] [place] [address] Care Team Providers Care Store Management Trainee Name Role Phone Suman Monique DO Primary Care Provider [phone] Rosa Chow MD Unavailable Reason for Visit * Reason Comments Refill Request Encounter Details Date Type Department Care Team (Late st Contact Info) Description 01/17/2021 Refill [facility] Neuroscience[address] [phone] [place] [address] [address] Refill Request Social History Tobacco [...] Telephone Encounter - Rosa Chow MD - 01/18/2021 12:43 PM CDT Set up f-u face to face appointment per note if feasible. Can go through zoom.us vs doxy.me on my video days such as Thursday. * Telephone Encounter - Danish Solano - 01/18/2021 10:31 AM CDT Wily Bahena Allergies Allergen Reactions ??? Carbamazepine Rash and Swelling Requested Prescriptions Pending Prescriptions Disp Refills ??? donepezil (ARICEPT) 10 MG tablet [Pharmacy Med Name: DONEPEZIL HCL 10MG TABLET] 30 tablet 0 Sig: TAKE 1 (ONE) TABLET BY MOUTH AT BEDTIME LAST FILL: 11/14/20 LAST OV: 12/14/20 documented in this encounter Plan of Treatment Not on file documented as of this encounter Visit Diagnoses Diagnosis Memory loss documented in this encounter Care Teams Store Management Trainee Relationship Specialty Start Date End Date Suman Monique DO PCP - General 04/20/18 01/30/21 [place] [address] [address] Neurology 01/09/20 documented as of this encounter
--- OUTSIDE RECORDS SUMMARY | 2024-09-03 07:50 | XMS_ITS | Encounter Summary ---
Author Organization [facility] Address [address] [facility] [place] [address] Care Team Providers Care Plant Worker Name Role Phone Suman Monique DO Primary Care Provider [phone] Rosa Chow MD Unavailable Reason for Visit * Reason Comments Refill Request Encounter Details Date Type Department Care Team (Late st Contact Info) Description 05/08/2020 Refill [facility] [address] [address] [place] [address] [address] Refill Request Social History Tobacco [...] Telephone Encounter - Selena Patel MA - 05/09/2020 8:58 AM CDT Wily Bahena Allergies Allergen Reactions ??? Carbamazepine Rash and Swelling Requested Prescriptions Pending Prescriptions Disp Refills ??? donepezil (ARICEPT) 10 MG tablet [Pharmacy Med Name: DONEPEZIL 10MG TAB 10.000 MG TABLET] 30 tablet 5 Sig: TAKE ONE TABLET BY MOUTH AT BEDTIME XL PT LAST FILL: 04/03/20 LAST OV: 01/05/20 documented in this encounter Plan of Treatment Not on file documented as of this encounter Visit Diagnoses Diagnosis Memory loss documented in this encounter Care Teams Plant Worker Relationship Specialty Start Date End Date Suman Monique DO PCP - General 04/20/18 01/30/21 [place] [address] [address] Neurology 01/09/20 documented as of this encounter
--- OUTSIDE RECORDS SUMMARY | 2024-09-03 07:50 | XMS_ITS | Encounter Summary ---
Author Organization [facility] Address [address] [facility] [place] [address] Care Team Providers Care Railroad Car Repair Supervisor Name Role Phone Suman Monique DO Primary Care Provider [phone] Reason for Visit * Reason Onset Date Comments Neuropsychological Evaluation 07/09/2018 Encounter Details Date Type Department Care Team (Late st Contact Info) Description 07/09/2018 Telephone [facility] [address] [facility] [address] [place] [phone] [place] [address] [address] Neuropsychological Evaluation Social History Tobacco Use Types Packs/Day Years [...] Telephone Encounter - Rosa Chow MD - 07/12/2018 10:44 AM CDT done * Telephone Encounter - Selena Patel MA - 07/09/2018 9:43 AM CDT requesting pt to have the neuropsych evaluation. Please sign order. documented in this encounter Plan of Treatment Not on file documented as of this encounter Visit Diagnoses Diagnosis Memory loss- Primary documented in this encounter Care Teams Railroad Car Repair Supervisor Relationship Specialty Start Date End Date Suman Monique DO PCP - General 04/20/18 01/30/21 documented as of this encounter
--- OUTSIDE RECORDS SUMMARY | 2024-09-03 07:50 | XMS_ITS | Encounter Summary ---
Author Organization [facility] Address [address] [facility] [place] [address] Care Team Providers Care Liberal Arts Teacher Name Role Phone Suman Monique DO Primary Care Provider [phone] Rosa Chow MD Unavailable Reason for Visit * Reason Comments Refill Request Encounter Details Date Type Department Care Team (Late st Contact Info) Description 11/12/2020 Refill [facility] Neuroscience[address] [address] [place] [address] [address] Refill Request Social History Tobacco [...] Telephone Encounter - Rosa Chow MD - 11/16/2020 1:46 PM CST Set up f-u face to face appointment per note if feasible. Can go through [email or web address] vs [email or web address] on my video days such as Thursday. 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
--- OUTSIDE RECORDS SUMMARY | 2024-09-03 07:50 | XMS_ITS | Encounter Summary ---
Author Organization [facility] Address [address] [facility] [place] [address] Care Team Providers Care Inclusion Manager Name Role Phone Rosa Chow MD Unavailable Johnathon Braga DO Primary Care Provider + Reason for Referral * Neurology (Routine) - Closed Specialty Diagnoses / Procedures Referred By Jonah weber Referred To Contact Neuroscience Diagnoses Numbness Procedures EMG [place] [address] [place] [address] [facility] [place] [address] [place] [address] Referral ID Status Reason Start Date Expiration Date Visits Re quested Visits Authorized [id number] Closed 12/14/2020 12/14/2021 1 1 Reason for Visit * Neurology (Routine) - Closed Specialty Diagnoses / Procedures Referred By Jonah weber Referred To Contact Neuroscience Diagnoses Numbness Procedures EMG WITH [place] [address] [place] [address] [facility] [place] [place] [address] [place] [id number] Referral ID Status Reason Start Date Expiration Date Visits Re quested Visits Authorized [id number] Closed 12/14/2020 12/14/2021 1 1 Encounter Details Date Type Department Care Team (Latest Contact Info) Description 01/31/2021 10:00 AM CDT - 02/04/2021 11:59 PM CDT Hospital Encounter [facility] Neurosciences [address] [place] [address] [place] [address] [place] [address] [place] [address] [place] [address] Discharge Disposition: Home or Self Care Social History Tobacco Use Types Packs/Day Years Used Date Smoking Tobacco: Never Smokeless Tobacco: Never Alcohol Use Standard Drinks/Week Comments No 0 (1 standard drink = 0.6 oz pur e alcohol) Sex and Gender Information Value Date Recorded Sex Assigned at Not on file Gender Identity Not on file Sexual Orientation Not on file documented as of this encounter Medications at Time of Discharge Medication Sig Dispensed Refills Start Date End Date allopurinol (ZYLOPRIM) 300 MG tablet Take 300 mg by mouth once daily aMILoride-hydroCHLOROth iazide (MODURETIC) 5-50 MG tablet Take 1 Tab by mouth once daily butalbital-acetaminophe n-caffeine (FIORICET) 50-300-40 MG capsuleIndications:Post concussion syndrome,Post-traumatic headache, not intractable, unspecified chronicity pattern Take 1 capsule by mouth every 4 hours as needed for Headache 30 capsule 3 06/24/2017 hydrOXYzine pamoate (VISTARIL) 50 MG capsule Take 1 capsule by mouth 3 times daily as needed 0 10/05/2017 meclizine (ANTIVERT) 25 MG tablet Take 25 mg by mouth 3 times daily as needed 0 06/09/2017 modafinil (PROVIGIL) 200 MG tablet Take 200 mg by mouth every morning Multiple Vitamin (MULTI VITAMIN DAILY PO)Indications:Centrium Silver 50+ Take 1 tablet by mouth once daily Reasons: Centrium Silver 50+ NAPROXEN DR PO Take 20 mg by mouth 2 times daily Coral-3 Fatty Acids (FISH OIL PO) Take by mouth 2 times daily primidone (MYSOLINE) 50 MG tabletIndications:Benig n essential tremor Take 1 tablet by mouth 3 times daily 90 tablet 09/12/2020 sertraline (ZOLOFT) 100 MG tablet Take 150 mg by mouth once daily testosterone cypionate (DEPO-TESTOTERONE) 200 MG/ML injection Inject 1 mL into muscle every 14 days 5 06/09/2017 venlafaxine XR 24hr (EFFEXOR XR) 75 MG capsule Take 75 mg by mouth once daily 1 05/10/2018 VYVANSE 70 MG capsule Take 70 mg by mouth once daily 0 11/21/[address] (DEPAKOTE) 500 MG tablet Take 500 mg by mouth 2 times daily 10/03/2021 donepezil (ARICEPT) 10 MG tabletIndications:Memor y loss TAKE 1 (ONE) TABLET BY MOUTH AT BEDTIME 30 tablet 01/18/2021 02/12/2021 documented as of this encounter Procedure Notes * Rosa Chow MD - 01/31/2021 11:44 AM CDTAssociated Order(s): EMG WITH NERVE CONDUCTION STUDY Images from the original note were not included. [facility] Neurosciences [facility] [address] [facility] , [address], [place] [address] Test Date: 01/31/2021 Patient: Wily Bahena : 1955 Physician: Rosa Chow MD Sex: Male Height: 5' 11 Ref Phys: ID#: [id number] Weight: 228 lbs. Patient Complaints: Patient is a 65 year old male who was referred to rule out a neuropathy. Patient presents with complaints of numbness in the bilateral upper and lower extremities. Symptoms have been present for 1 year. Physical Exam: Medications: NCV & EMG Findings: ??? Evaluation of the left median motor nerve showed decreased conduction velocity (Elbow-Wrist, 46m/s). ??? The left peroneal motor, the right peroneal motor, the left tibial motor, and the right tibial motor nerves showed reduced amplitude (L2.5, R2.2, L1.1, R2.4 mV). ??? The left Sup Peroneal sensory and the right Sup Peroneal sensory nerves showed no response (14 cm) and no response (Site 2). ??? The left sural sensory and the right sural sensory nerves showed no response (Calf) and no response (Site 2). ??? The left median/ulnar (palm) comparison nerve showed no response (Ulnar Palm) and prolonged distal peak latency (3.2 ms). ??? The right median/ulnar (palm) comparison nerve showed prolonged distal peak latency (Median Palm, 2.7 ms). ??? All remaining nerves (as indicated in the following tables) were within normal limits. ??? Left vs. Right side comparison data for the tibial motor nerve indicates abnormal L-R amplitudedifference (54.2 %). ??? All remaining left vs. right side differences were within normal limits. ??? F Wave studies indicate that the left peroneal F wave has prolonged latency (56.32 ms). ??? The right peroneal F wave has no response. ??? The left tibial F wave has prolonged latency (61.77 ms). ??? The right tibial F wave has prolonged latency (61.77 ms). ??? All remaining F Wave latencies were within normal limits. ??? All F Wave left vs. right side latency differences were within normal limits. ??? Needle evaluation of the right deltoid, the right abductor pollicis brevis, the right anterior tibialis, the right extensor digitorum brevis, and the left extensor digitorum brevis muscles showedincreased motor unit amplitude, increased motor unit duration, diminished recruitment, and moderately decreased interference pattern. ??? The right biceps, the right triceps, the right gastroc, the left vastus medialis, the left anterior tibialis, the left triceps, and the left abductor pollicis brevis muscles showed increased motor unit amplitude and increased motor unit duration. ??? All remaining muscles (as indicated in the [...] P-T Amp Site1 Site2 Delta-P (ms) Dist (cm)Missael (m/s) Norm Missael (m/s) Left Radial Anti Sensory (Base 1st Digit) Wrist 2.3 <3.1 10.0 Wrist Base 1st Digit 2.3 0.0 Site 2 2.3 6.9 Right Radial Anti Sensory (Base 1st Digit) Wrist 2.8 <3.1 12.5 Wrist Base 1st Digit 2.8 0.0 Site 2 2.7 12.2 Left Sup Peroneal Anti Sensory (Ant Lat Mall) 14 cm *NR <4.4 >5.0 14 cm Ant Lat Mall 14.0 Site 2 *NR Right Sup Peroneal Anti Sensory (Ant Lat Mall) 14 cm *NR <4.4 >5.0 14 cm Ant Lat Mall 14.0 Site 2 *NR Left Sural Anti Sensory (Lat Mall) Calf *NR <4.0 >5.0 Calf Lat Mall 14.0 Site 2 *NR Right Sural Anti Sensory (Lat Mall) Calf *NR <4.0 >5.0 Calf Lat Mall 14.0 Site 2 *NR Motor Summary Table Stim Site NR Onset (ms) Norm Onset (ms) O-P Amp (mV) Norm O-P Amp Amp (Prev) (%) Site1 Site2 Delta-0 (ms) Dist (cm) Missael (m/s) Norm Missael (m/s) Left Median Motor (Abd Poll Brev) Wrist 3.4 <4.4 9.6 >5 100.0 Elbow Wrist 5.6 26.0 *46 >50 Elbow 9.0 9.1 94.8 Right Median Motor (Abd Poll Brev) Wrist 3.5 <4.4 7.2 >5 100.0 Elbow Wrist 5.3 27.0 51 >50 Elbow 8.8 6.7 93.1 Left Peroneal Motor (Ext Dig Brev) Ankle 5.2 <6.1 *2.5 >2.5 100.0 B Fib Ankle 7.5 35.5 47 >38 B Fib 12.7 2.2 88.0 Poplt B Fib 1.9 10.0 53 >40 Poplt 14.6 2.1 95.5 Right Peroneal Motor (Ext Dig Brev) Ankle 4.8 <6.1 *2.2 >2.5 100.0 B Fib Ankle 8.8 36.0 41 >38 B Fib 13.6 1.8 81.8 Poplt B Fib 2.3 10.0 43 >40 Poplt 15.9 1.7 94.4 Left Tibial Motor (Abd Lutz Brev) Ankle 4.7 <6.1 *1.1 >3.0 100.0 Knee Ankle 10.3 46.0 45 >35 Knee 15.0 1.6 145.5 Right Tibial Motor (Abd Lutz Brev) Ankle 6.0 <6.1 *2.4 >3.0 100.0 Knee Ankle 11.7 46.0 39 >35 Knee 17.7 0.8 33.3 Left Ulnar Motor (Abd Dig Minimi) Wrist 3.0 <4.2 8.2 >3 100.0 B Elbow Wrist 3.9 22.0 56 >53 B Elbow 6.9 7.9 96.3 A Elbow B Elbow 2.2 10.0 45 A Elbow 9.1 7.5 94.9 Right Ulnar Motor (Abd Dig Minimi) Wrist 2.5 <4.2 8.9 >3 100.0 B Elbow Wrist 4.0 22.0 55 >53 B Elbow 6.5 8.6 96.6 A Elbow B Elbow 1.9 10.0 53 A Elbow 8.4 8.4 97.7 Comparison Summary Table Stim Site NR Peak (ms) Norm Peak (ms) P-T Amp (??V) Site1 Site2 Delta-P (ms) Norm Delta (ms) Left Median/Ulnar Palm Comparison (Wrist - 8cm) Median Palm *3.2 <2.2 28.3 Median Palm Ulnar Palm Ulnar Palm *NR <2.2 Right Median/Ulnar Palm Comparison (Wrist - 8cm) Median Palm *2.7 <2.2 6.0 Median Palm Ulnar Palm 0.7 Ulnar Palm 2.0 <2.2 8.1 F Wave Studies NR F-Lat (ms) Lat Norm (ms) L-R F-Lat (ms) L-R Lat Norm Left Median (Mrkrs) (Abd Poll Brev) 30.91 <31.3 0.00 <2.2 Right Median (Mrkrs) (Abd Poll Brev) 30.91 <31.3 0.00 <2.2 Left Peroneal (Mrkrs) (EDB) *56.32 <54.3 <5.1 Right Peroneal (Mrkrs) (EDB) *NR <54.3 <5.1 Left Tibial (Mrkrs) (Abd Hallucis) *61.77 <57.8 0.00 <5.7 Right Tibial (Mrkrs) (Abd Hallucis) *61.77 <57.8 0.00 <5.7 Left Ulnar (Mrkrs) (Abd Dig Min) 31.03 <31.7 0.00 <2.5 Right Ulnar (Mrkrs) (Abd Dig Min) 31.03 <31.7 0.00 <2.5 EMG Side Muscle Nerve Root Ins Act Fibs Psw Fasc Amp Dur Poly Recrt Int Pat Comment Right Deltoid Axillary C5-6 Nml Nml Nml Nml *Incr *>12ms 0 *Reduced *75% no dm, alcohol. had nk sx. some l bk pn Right Biceps Musculocut C5-6 Nml Nml Nml Nml *Incr *>12ms 0 Nml Nml jackson gone.shot term still bad.no change w neuropsych. Right Triceps Radial C6-7-8 Nml Nml Nml Nml *Incr *>12ms 0 Nml Nml 2+, 1=AJ, dongin toes. 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.' Right 1stDorInt Ulnar C8-T1 Nml Nml Nml Nml Nml Nml 0 Nml Nml Right Abd Poll Brev Median C8-T1 Nml Nml Nml Nml *Incr *>12ms 0 *Reduced *75% Right VastusMed Femoral L2-4 Nml Nml Nml Nml Nml Nml 0 Nml Nml Right AntTibialis Dp Br Peron L4-5 Nml Nml Nml Nml *Incr *>12ms 0 *Reduced *75% Right Gastroc Tibial S1-2 Nml Nml Nml Nml *Incr *>12ms 0 Nml Nml Right Ext Dig Brev Dp Br Peron L5, S1 Nml Nml Nml Nml *Incr *>12ms 0 *Reduced *75% Left BicepsFemS Sciatic L5-S1 Nml Nml Nml Nml Nml Nml 0 Nml Nml Right BicepsFemS Sciatic L5-S1 Nml Nml Nml Nml Nml Nml 0 Nml Nml Left VastusMed Femoral L2-4 Nml Nml Nml Nml *Incr *>12ms 0 Nml Nml Left AntTibialis Dp Br Peron L4-5 Nml Nml Nml Nml *Incr *>12ms 0 Nml Nml Left Gastroc Tibial S1-2 Nml Nml Nml Nml Nml Nml 0 Nml Nml Left Ext Dig Brev Dp Br Peron L5, S1 Nml Nml Nml Nml *Incr *>12ms 0 *Reduced *75% Left Deltoid Axillary C5-6 Nml Nml Nml Nml Nml Nml 0 Nml Nml Left Biceps Musculocut C5-6 Nml Nml Nml Nml Nml Nml 0 Nml Nml Left Triceps Radial C6-7-8 Nml Nml Nml Nml *Incr *>12ms 0 Nml Nml Left 1stDorInt Ulnar C8-T1 Nml Nml Nml Nml Nml Nml 0 Nml Nml Left Abd Poll Brev Median C8-T1 Nml Nml Nml Nml *Incr *>12ms 0 Nml Nml Nerve Conduction Studies Anti Sensory Left/Right Comparison Stim Site L Lat (ms) R Lat (ms) L-R Lat (ms) L Amp (??V) R Amp (??V) L-R Amp (%) Site1 Site2 L Missael (m/s) R Missael (m/s) L-R Missael (m/s) Radial Anti Sensory (Base 1st Digit) Wrist 2.3 2.8 0.5 10.0 12.5 20.0 Wrist Base 1st Digit Site 2 2.3 2.7 0.4 6.9 12.2 43.4 Sup Peroneal Anti Sensory (Ant Lat Mall) 14 cm 14 cm Ant Lat Mall Site 2 Sural Anti Sensory (Lat Mall) Calf Calf Lat Mall Site 2 Motor Left/Right Comparison Stim Site L Lat (ms) R Lat (ms) L-R Lat (ms) L Amp (mV) R Amp (mV) L-R Amp (%) Site1 Site2 L Missael (m/s) R Missael (m/s) L-R Missael (m/s) Median Motor (Abd Poll Brev) Wrist 3.4 3.5 0.1 9.6 7.2 25.0 Elbow Wrist *46 51 5 Elbow 9.0 8.8 0.2 9.1 6.7 26.4 Peroneal Motor (Ext Dig Brev) Ankle 5.2 4.8 0.4 *2.5 *2.2 12.0 B Fib Ankle 47 41 6 B Fib 12.7 13.6 0.9 2.2 1.8 18.2 Poplt B Fib 53 43 10 Poplt 14.6 15.9 1.3 2.1 1.7 19.0 Tibial Motor (Abd Lutz Brev) Ankle 4.7 6.0 1.3 *1.1 *2.4 *54.2 Knee Ankle 45 39 6 Knee 15.0 17.7 2.7 1.6 0.8 50.0 Ulnar Motor (Abd Dig Minimi) Wrist 3.0 2.5 0.5 8.2 8.9 7.9 B Elbow Wrist 56 55 1 B Elbow 6.9 6.5 0.4 7.9 8.6 8.1 A Elbow B Elbow 45 53 8 A Elbow 9.1 8.4 0.7 7.5 8.4 10.7 Comparison Left/Right Comparison Stim Site L Lat (ms) R Lat (ms) L-R Lat (ms) L Amp (??V) R Amp (??V) L-R Amp (%) Median/Ulnar Palm Comparison (Wrist - 8cm) Median Palm *3.2 *2.7 0.5 28.3 6.0 78.8 Ulnar Palm 2.0 8.1 Waveforms: documented in this encounter Plan of Treatment Not on file documented as of this encounter Procedures Procedure Name Priority Date/Time Associated Diagnosis Comments EMG WITH NERVE CONDUCTION STUDY Routine 01/31/2021 11:44 AM CDT Numbness documented in this encounter Results * EMG WITH NERVE CONDUCTION STUDY (01/31/2021 11:44 AM CDT) Narrative Rosa Chow MD - 01/31/2021 11:44 AM CDT Rosa Chow MD ? 02/03/2021 ??2:[address] [facility] Neurosciences [facility] [address] [facility] , [address], [place] [id number] Test Date: ??01/31/2021 Patient: Wily Bahena : 1955 Physician: Rosa Chow MD Sex: Male Height: 5' 11 Ref Phys: ?? ID#: [id number] Weight: 228 lbs. ?? Patient Complaints: Patient [...] Nml Nml *Incr *>12ms 0 Nml Nml jackson gone.shot term still bad. no change w [...] L Missael (m/s) R Missael (m/s) L-R Misasel (m/s) Median Motor (Abd Poll Brev) Wrist [...] documented in this encounter Visit Diagnoses Diagnosis Numbness Disturbance of skin sensation documented in this encounter Care Teams Inclusion Manager Relationship Specialty Start Date End Date Johnathon Braga DO [address] [place] [id number] PCP - General Family Medicine Geriatric Medicine 01/31/21 [place] [address] [place] [address] Neurology 01/09/20 documented as of this encounter
--- OUTSIDE RECORDS SUMMARY | 2024-09-03 07:50 | XMS_ITS | Patient Health Summary ---
Author Organization [facility] Address [address] [place] [address] Care Team Providers Care Second Shift Supervisor Name Role Phone Dread Ayala MD Unavailable Johnathon Braga DO Primary Care Provider + Note from [facility],non-owned Affiliates and Associated Physician Practices is amultiple site organization consisting of ambulatory clinics and hospital sitesin [place], [place], [place] and [place]. This disclosure is being madepursuant to the Care Everywhere program and may not contain all information available regarding this patient. Last updated 18.[facility] Allergies * Carbamazepine(Rash,Swelling) -High Criticality Medications * Be aware that medications may not be up to date on this document. Alwaysverify current medications with the patient. * allopurinol (ZYLOPRIM) 300 MG tablet Take 300 mg by mouth once daily * aMILoride-hydroCHLOROthiazide (MODURETIC) 5-50 MG tablet Take 1 Tab by mouth once daily * sertraline (ZOLOFT) 100 MG tablet Take 150 mg by mouth once daily * meclizine (ANTIVERT) 25 MG tablet(Started 06/09/2017) Take 25 mg by mouth 3 times daily as needed * testosterone cypionate (DEPO-TESTOTERONE) 200 MG/ML injection(Started 06/09/2017) Inject 1 mL into muscle every 14 days 5 refills left * Multiple Vitamin (MULTI VITAMIN DAILY PO) Take 1 tablet by mouth once daily Reasons: Centrium Silver 50+ * tbhobptgyd-bgphnhwyumbbc-xwgfwfai (FIORICET) 50-300-40 MG capsule(Started 06/24/2017) Take 1 capsule by mouth every 4 hours as needed for Headache 3 refills remaining * VYVANSE 70 MG capsule(Started 11/21/2017) Take 70 mg by mouth once daily * hydrOXYzine pamoate (VISTARIL) 50 MG capsule(Started 10/05/2017) Take 1 capsule by mouth 3 times daily as needed * [place]-3 Fatty Acids (FISH OIL PO) Take by mouth 2 times daily * venlafaxine XR 24hr (EFFEXOR XR) 75 MG capsule(Started 05/10/2018) Take 75 mg by mouth once daily 1 refill left * modafinil (PROVIGIL) 200 MG tablet Take 200 mg by mouth every morning * NAPROXEN DR PO Take 20 mg by mouth 2 times daily * primidone (MYSOLINE) 50 MG tablet(Started 09/12/2020) Take 1 tablet by mouth 3 times daily * donepezil (ARICEPT) 10 MG tablet(Started 10/03/2021) Take 1 (one) tablet by mouth at bedtime 3 refills by 10/03/2022 Active Problems Problem Noted Date Diagnosed Date [...] PM CDT Pulse 65 10/03/2021 12:06 PM ASSIGNMENT AGENT Temperature 36.7 ??C (98.1 ??F) 10/10/2017 10:[address] Respiratory Rate 17 10/03/2021 12:06 PM ASSIGNMENT AGENT Oxygen Saturation 96% 10/03/2021 12:06 PM ASSIGNMENT AGENT Inhaled Oxygen Concentration - - Weight 103 kg (227 lb) 10/03/2021 12:06 PM ASSIGNMENT AGENT Height 180.3 cm (5' 11 ) 10/03/2021 12:06 PM ASSIGNMENT AGENT Body Mass Index 31.66 10/03/2021 12:06 PM ASSIGNMENT AGENT Procedures * EMG WITH NERVE CONDUCTION STUDY(Performed 01/31/2021) Performed for Numbness * OPH VISUAL FIELD TEST SLU(Performed 04/20/2018) Performed for Visual disturbance * IMAGING/RADIOLOGY/XRAY RESULTS ORDER(Performed 12/17/2017) * IMAGING/RADIOLOGY/XRAY RESULTS ORDER(Performed 12/08/2017) * VAS CAROTID DUPLEX BILATERAL(Performed 12/07/2017) * IMAGING/RADIOLOGY/XRAY RESULTS ORDER(Performed 09/04/2017) * CT ANGIO BRAIN AND NECK(Performed 07/13/2017) Performed for Postconcussion syndrome, Syncope, unspecified syncope type, Fall, subsequent encounter * CT HEAD WO CONTRAST(Performed 07/08/2017) Performed for Postconcussion syndrome, Syncope, unspecified syncope type, Fall, subsequent encounter * CK BLOOD(Performed 07/01/2017) Performed for Syncope, unspecified syncope type * TSH(Performed 07/01/2017) Performed for Syncope, unspecified syncope type * EEG(Performed 06/25/2017) Performed for Postconcussion syndrome, Memory loss * US CAROTID DUPLEX BILAT(Performed 06/23/2017) * IMAGING/RADIOLOGY/XRAY RESULTS ORDER(Performed 05/09/2017) * STREP A SCREEN - POINT OF CARE (AMB) STL(Performed 03/06/2017) Performed for Acute pharyngitis, unspecified etiology Results * EMG WITH NERVE CONDUCTION STUDY (01/31/2021 11:44 AM CDT) Narrative Dread Ayala MD - 01/31/2021 11:44 AM CDT Dread Ayala MD ? 02/03/2021 ??2:19 PM [facility] Neurosciences [facility] [address] [address] Test Date: ??01/31/2021 Patient: Wily Bahena : 1955 Physician: Dread Ayala MD Sex: Male Height: 5' 11 Ref Phys: ?? ID#: [id number] Weight: 228 lbs. ?? Patient Complaints: Patient [...] to the carpal tunnel syndrome. Clinical correlations. Dread Ayala MD Nerve Conduction Studies Anti Sensory Summary [...] Palm ??2.0 ?? 8.1 ?? Waveforms: ? Dread Ayala MD NEUROLOGY ORDERABLES * Visual Oconnell (04/20/2018 2:16 PM CDT) Anatomical Region Laterality Modality Other 04/20/2018 2:16 PM CDT Christina Kirkland MD OPHTHALMOLOGY SE RVICES ORDERABLES * IMAGING/RADIOLOGY/XRAY RESULTS ORDER (12/17/2017) Only the most recent of4 resultswithin the time period is included. Anatomical Region Laterality Modality Other Provider Unknown IMAGING * VAS CAROTID DUPLEX BILATERAL (12/07/2017) Anatomical Region Laterality Modality Neck Other Dread Ayala MD VASCULAR LAB ORDERAB LES * CT ANGIO NECK HEAD W WO CONTRAST (07/13/2017 1:31 PM CDT) Anatomical Region Laterality Modality Head Computed Tomogra phy 07/13/2017 3:20 PM CDT Impressions 07/13/2017 3:[address] angiogram head and neck. Narrative 07/13/2017 3:[address] angiogram the neck with IV contrast, CT angiogram of the head with IV contrast, CT MIP reconstructions, CT 3-D reconstructions INDICATION: Incomplete concussion TECHNIQUE: Helical CT images of the head and neck are obtained following 80 mL Omnipaque 350. From the original axial data axial sagittal and coronal MIP and 3-D volume rendered reconstructed images of the sacrum workstation. FINDINGS: CT angiogram the neck: Scans of lung apices show minimal groundglass opacity. Common carotid arteries are patent. The thyroid is unremarkable. The vertebral arteries are patent. The right is slightly dominant. No focal stenoses are noted when utilizing the NASCET criteria. Reconstructed images demonstrate a normal course and caliber to the carotid and vertebral arteries in the neck. CT angiogram of the head: Basilar artery is patent. Posterior cerebral arteries are patent. Proximal middle and anterior cerebral arteries are patent. Major dural venous sinuses are patent. There is no focal aneurysmal dilatation identified. Reconstructed images demonstrate a normal course and caliber to the [place] of [place]. Procedure Note Flores Tee MD - 07/13/2017 CT angiogram the neck with IV contrast, CT angiogram of the head with IV contrast, CT MIP reconstructions, CT 3-D reconstructions INDICATION: Incomplete concussion TECHNIQUE: Helical CT images of the head and neck are obtained following 80 mL Omnipaque 350. From the original axial data axial sagittal and coronal MIP and 3-D volume rendered reconstructed images of the sacrum workstation. FINDINGS: CT angiogram the neck: Scans of lung apices show minimal groundglass opacity. Common carotid arteries are patent. The thyroid is unremarkable. The vertebral arteries are patent. The right is slightly dominant. No focal stenoses are noted when utilizing the NASCET criteria. Reconstructed images demonstrate a normal course and caliber to the carotid and vertebral arteries in the neck. CT angiogram of the head: Basilar artery is patent. Posterior cerebral arteries are patent. Proximal middle and anterior cerebral arteries are patent. Major dural venous sinuses are patent. There is no focal aneurysmal dilatation identified. Reconstructed images demonstrate a normal course and caliber to the [place] of [place]. IMPRESSION Unremarkable CT angiogram head and neck. Dread Ayala MD CT ORDERABLES * CT HEAD NON CONTRAST (07/08/2017 2:30 PM CDT) Anatomical Region Laterality Modality Head Computed Tomogra phy 07/08/2017 2:57 PM CDT Impressions 07/08/2017 3:[address] brain. Edited by Alexandra Elizabeth on 07/08/2017 3:02 PM Narrative 07/08/2017 3:[address] BRAIN UNENHANCED INDICATION: Syncope, post concussion syndrome TECHNIQUE: 5 mm axial images were obtained from the foramen magnum to the vertex without administration of contrast. FINDINGS: The ventricles and sulci are within normal limits in size. There is no intracranial hemorrhage, mass, or mass effect. No abnormal extra-axial fluid collection is seen. There is no cortical infarction. The visualized cranial and facial soft tissues are unremarkable. Procedure Note Gina Fraser MD - 07/08/2017 CT BRAIN UNENHANCED INDICATION: Syncope, post concussion syndrome TECHNIQUE: 5 mm axial images were obtained from the foramen magnum to the vertex without administration of contrast. FINDINGS: The ventricles and sulci are within normal limits in size. There is no intracranial hemorrhage, mass, or mass effect. No abnormal extra-axial fluid collection is seen. There is no cortical infarction. The visualized cranial and facial soft tissues are unremarkable. IMPRESSION Unremarkable CT brain. Edited by Alexandra Elizabeth on 07/08/2017 3:02 PM Dread Ayala MD CT ORDERABLES * CK BLOOD (07/01/2017 1:25 PM CDT) CK 54 44 - 196 U/L [facility] Comment: Test Performed at: [employer] [address] [place] [address] ??[id number] NELL RUBALCAVA DO,MPH Blood BLOOD SPECIMEN / Unknown 07/01/2017 1:25 PM CDT 07/01/2017 1:25 PM CDT Dread Ayala MD LAB - CHEMISTRY ZAID MCDONALD Performing Organization Address [facility] [[email or web address]] Co de Phone Number [facility] [address] [place] [address] * TSH (07/01/2017 1:25 PM CDT) TSH 1.04 0.40 - 4.50 mIU/L [facility] Comment: Test Performed at: [facility] [address] ??[id number] NELL RUBALCAVA DO,MPH Blood BLOOD SPECIMEN / Unknown 07/01/2017 1:25 PM CDT 07/01/2017 1:25 PM CDT Dread Ayala MD LAB - CHEMISTRY ZAID MCDONALD Performing Organization Address [facility] [[email or web address]] Co de Phone Number [facility] [phone] [place] [address] * EEG (06/25/2017 12:00 PM CDT) 06/25/2017 12:0 0 PM CDT Narrative Procedure Note Dread Ayala MD - 06/25/2017 11:59 PM CDT [facility] ELECTROENCEPHALOGRAPHIC REPORT PATIENT: WILY BAHENA MR#: [id number] DATE OF SERVICE: 06/25/2017 CSN: [id number] : 1955 ROOM: REFERRING PHYSICIAN: DREAD AYALA MD ADMIT DATE: 06/25/2017 EEG was ordered for altered mentation. EEG was recorded in standard multichannel format utilizing the 10/20system of electrode placement. Bipolar and referential montages were used forreview. The quality of the recording is good. The background consists of up to 11 Hz alpha range activity, lowamplitude, with a posterior dominant rhythm. The record is continuous and symmetric,with good variability and reactivity. No epileptiform activity is seen. Noother focal or lateralizing abnormalities are seen. During recording, the patient was found to be asleep with vertex waves, spindles, and K complexes. IMPRESSION: This is a normal EEG with the patient being awake and asleep.No seizure activity was seen. Clinical correlation. 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
--- OUTSIDE RECORDS SUMMARY | 2024-09-03 07:50 | XMS_ITS | Clinical Summary ---
Author Organization [facility] Address [address] [place] [address] Care Team Providers Care Package Worker Name Role Phone Rosa Chow MD Unavailable Johnathon Braga DO Primary Care Provider + Source Comments [facility],non-owned Affiliates and Associated Physician Practices is amultiple site organization consisting of ambulatory clinics and hospital sitesin [place], [place]. This disclosure is being madepursuant to the Care Everywhere program and may not contain all information available regarding this patient. Last updated 18.[facility] Allergies Active Allergy Reactions Criticality Noted Date [...] times daily as needed 0 10/05/2017 Active [place]-3 Fatty Acids (FISH OIL PO) Take by [...] syndrome 06/24/2017 Post-traumatic headache, not intractable 017 Family History Medical History Relation Name Comments Cancer - Prostate Brother Cirrhosis Father Cancer - Breast Mother Relation Name Status Comments Brother Alive Father Mother Sister Alive Social History Tobacco Use Types Packs/Day Years [...] PM CDT Pulse 65 10/03/2021 12:06 PM DIRECTOR IMAGING Temperature 36.7 ??C (98.1 ??F) 10/10/2017 10:[address] Respiratory Rate 17 10/03/2021 12:06 PM DIRECTOR IMAGING Oxygen Saturation 96% 10/03/2021 12:06 PM DIRECTOR IMAGING Inhaled Oxygen Concentration - - Weight 103 kg (227 lb) 10/03/2021 12:06 PM DIRECTOR IMAGING Height 180.3 cm (5' 11 ) 10/03/2021 12:06 PM DIRECTOR IMAGING Body Mass Index 31.66 10/03/2021 12:06 PM DIRECTOR IMAGING Plan of Treatment Health Maintenance Due Date Last Done Comments COLOGUARD (AGES 45-75) - COL ON CA SCREENING 1955 COLON MONITORING 1955 COLONOSCOPY - COLON CA SCREENING 1955 CT COLONOGRAPHY - COLON CA SCREENING 1955 Colorectal Cancer Screening 1955 FIT - COLON CA SCREENING 1955 FLEX SIG - COLON CA SCREENING 1955 LIPID TESTING 1955 MEDICARE AWV ? 12 MONTHS 1955 HEPATITIS C SCREENING 09/05/1975 DTAP/TDAP/TD VACCINES (1 - Tdap) 1976 ZOSTER VACCINE (1 of 2) 2007 Respiratory Syncytial Virus (RSV) Vaccine Pt: or over 60 yrs (1 - Risk 60-74 years 1-dose series) 2017 SCREENING FOR DIABETES 10/03/2021 PNEUMOCOCCAL VACCINE 65+ (1 of 1 - PCV) 2022 DEPRESSION SCREENING 09/14/2023 COVID-19 VACCINE (2 - 2023-2 5 season) 2024 11/22/2020 INFLUENZA VACCINE (#1) 2024 HEPATITIS B VACCINE Aged Out No longe r eligible based on patient's age to complete this topic HIB VACCINE Aged Out No longer eligi ble based on patient's age to complete this topic HPV VACCINE Aged Out No longer eligi ble based on patient's age to complete this topic MENINGOCOCCAL VACCINE Aged Out No anber opal eligible based on patient's age to complete this topic Advance Directives Documents on File Type Date Recorded 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
--- OUTSIDE RECORDS SUMMARY | 2024-09-03 07:50 | XMS_ITS | Encounter Summary ---
Author Organization [facility] Address [address] [place] [address] Care Team Providers Care Fire Protection Specialist Name Role Phone Suman Monique DO Primary Care Provider [phone] Rosa Chow MD Unavailable Johnathon Braga DO Primary Care Provider + Encounter Details Date Type Department Care Team (Late st Contact Info) Description 01/12/2020 [facility] Outpatient Visit [facility] Neurosciences [address] [place] [phone] [place] [address] [address] Social History Tobacco Use Types Packs/Day Years [...] on filedocumented in this encounter Care Teams Fire Protection Specialist Relationship Specialty Start Date End Date Suman Monique DO PCP - General 04/20/18 01/30/21 Johnathon Braga DO [address] [place] [address] PCP - General Family Medicine Geriatric Medicine 01/31/21 [place] [address] [place] [address] Neurology 01/09/20 documented as of this encounter
--- OUTSIDE RECORDS SUMMARY | 2024-09-03 07:50 | XMS_ITS | Encounter Summary ---
Author Organization [facility] Address [address] [place] [address] Care Team Providers Care Newspaper Delivery Driver Name Role Phone Suman Monique DO Primary Care Provider [phone] Reason for Visit * Reason Onset Date Comments MEDICATION REFILL 11/23/2018 Encounter Details Date Type Department Care Team (Late st Contact Info) Description 11/23/2018 Refill [facility] [address] [facility] [address] [place] [phone] [place] [address] [address] MEDICATION REFILL Social History Tobacco [...] encounter Miscellaneous Notes * Telephone Encounter - Teresa Mandujano MA - 11/23/2018 3:26 PM CDT Pt spouse called stating pt medication was sent to the wrong Pharmacy. New order placed, please review and sign. Wily Bahena No Known Allergies Requested Prescriptions Pending Prescriptions Disp Refills ??? propranolol CR 24hr (INDERAL LA) 80 MG capsule 30 capsule 11 Sig: Take 1 capsule by mouth once daily LAST FILL: 05/14/18 LAST OV: 06/04/18 documented in this encounter Plan of Treatment Not on file documented as of this encounter Visit Diagnoses Not on filedocumented in this encounter Care Teams Newspaper Delivery Driver Relationship Specialty Start Date End Date Suman Monique DO PCP - General 04/20/18 01/30/21 documented as of this encounter
--- OUTSIDE RECORDS SUMMARY | 2024-09-03 07:50 | XMS_ITS | Encounter Summary ---
Author Organization [facility] Address [address] [place] [address] Care Team Providers Care Glazing Department Supervisor Name Role Phone Suman Monique DO Primary Care Provider [phone] Rosa Chow MD Unavailable Reason for Visit * Reason Comments Refill Request Encounter Details Date Type Department Care Team (Late st Contact Info) Description 07/16/2020 Refill [facility] Neuroscience[address] [address] [place] [address] [address] Refill Request Social History Tobacco [...] Telephone Encounter - Rosa Chow MD - 07/17/2020 2:47 PM CST Set up f-u face to face appointment per note if feasible. Can go through [email or web address] TIC TECHNICIAN * Telephone Encounter - Selena Patel MA - 07/17/2020 9:17 AM ROBOTIC TECHNICIAN Wily Bahena Allergies Allergen Reactions ??? Carbamazepine Rash and Swelling Requested Prescriptions Pending Prescriptions Disp Refills ??? donepezil (ARICEPT) 10 MG tablet [Pharmacy Med Name: DONEPEZIL 10MG TAB 10.000 MG TABLET] 30 tablet 0 Sig: TAKE ONE TABLET BY MOUTH AT BEDTIME LAST FILL: 06/12/20 LAST OV: 01/05/20 TIC TECHNICIAN documented in this encounter Plan of Treatment Not on file documented as of this encounter Visit Diagnoses Diagnosis Memory loss documented in this encounter Care Teams Glazing Department Supervisor Relationship Specialty Start Date End Date Suman Monique DO PCP - General 04/20/18 01/30/21 [place] [address] [place] [address] Neurology 01/09/20 documented as of this encounter
--- OUTSIDE RECORDS SUMMARY | 2024-09-03 07:50 | XMS_ITS | Encounter Summary ---
Author Organization [facility] Address [address] [facility] [place] [address] Care Team Providers Care Lead Die Molder Name Role Phone Suman Monique DO Primary Care Provider [phone] Rosa Chow MD Unavailable Reason for Visit * Reason Onset Date Comments Letter 01/09/2020 Encounter Details Date Type Department Care Team (Late st Contact Info) Description 01/09/2020 Telephone [facility] [address] [place] [phone] [place] [address] [address] Letter Social History Tobacco Use Types Packs/Day Years [...] AM CDT documented as of this encounter Miscellaneous Notes * Telephone Encounter - Hilda Sr - 01/12/2020 3:37 PM CDT [facility] faxed the letter. * Telephone Encounter - Nick Meza - 01/12/2020 10:56 AM CDT Received a call from the patient who is checking the status of the letter been sent to Dr.Richard Last. I explained the letter has been completed and will be faxed today. The patient verbalized understanding. * Telephone Encounter - Rosa Chow MD - 01/09/2020 12:09 PM CDT OK to send letter. Concerned about depakote exacerbating his tremor. Recommend replace with tegretol 200mg po tid as tolerated. * Telephone Encounter - Hilda Sr - 01/09/2020 12:00 PM CDT Nayana states you had request for her to call Dr. Tracy and cancel the Depakote. Dr. Clemente states he needs aletter from you stating what medication you want him to stop which is Depakote and why? Then what medication you are wanting to adding which is Carbamezine. Then you need to fax to his office at [phone]. documented in this encounter Plan of Treatment Not on file documented as of this encounter Visit Diagnoses Not on filedocumented in this encounter Care Teams Lead Die Molder Relationship Specialty Start Date End Date Suman Monique DO PCP - General 04/20/18 01/30/21 [place] [address] [address] [address] Neurology 01/09/20 documented as of this encounter
--- OUTSIDE RECORDS SUMMARY | 2024-09-03 07:50 | XMS_ITS | Encounter Summary ---
Author Organization [facility] Address [address] [facility] [place] [address] Care Team Providers Care Certified Alcohol Counselor Name Role Phone Suman Monique DO Primary Care Provider [phone] Rosa Chow MD Unavailable Johnathon Braga DO Primary Care Provider + Reason for Visit * Reason Onset Date Comments Refill Request 12/10/2020 Encounter Details Date Type Department Care Team (Late st Contact Info) Description 12/10/2020 Telephone [facility] Neurosciences [address] [phone] Rosa Chow MD [address] [place] [address] Refill Request Social History Tobacco Use [...] Telephone Encounter - Rosa Chow MD - 12/11/2020 4:41 PM CDT Not sure what this for? will see him on apil 2. * Telephone Encounter - Josie Childs - 12/10/2020 3:31 PM CDT Wily Nichols Cauble Allergies Allergen Reactions ??? Carbamazepine Rash and Swelling Requested Prescriptions No prescriptions requested or ordered in this encounter LAST FILL: 11-12-20 LAST video visit: [id number] documented in this encounter Plan of Treatment Not on file documented as of this encounter Visit Diagnoses Not on filedocumented in this encounter Care Teams Certified Alcohol Counselor Relationship Specialty Start Date End Date Suman Monique DO PCP - General 04/20/18 01/30/21 Johnathon Braga DO [address] [place] [address] PCP - General Family Medicine Geriatric Medicine 01/31/21 [place] [address] [address] Neurology 01/09/20 documented as of this encounter
--- OUTSIDE RECORDS SUMMARY | 2024-09-03 07:50 | XMS_ITS | Encounter Summary ---
Author Organization [facility] Health Address [address] [place] [address] Care Team Providers Care Turning Sander Tender Name Role Phone Suman Monique DO Primary Care Provider [phone] Reason for Visit * Reason Comments Blurred Vision Encounter Details Date Type Department Care Team (Latest Contact Info) Description 08/11/2018 1:00 PM THERAPEUTIC RADIOLOGIST Office Visit [facility] Ophthalmology [address] [place] [address] Lulu Calero Postconcussion syndrome (Primary Dx); Post-traumatic headache, not intractable, unspecified chronicity pattern; Visual disturbance; Convergence insufficiency Social History Tobacco Use Types Packs/Day Years [...] encounter Progress Notes * Lulu Calero - 08/11/2018 3:21 PM CST Impression: Sees well for distance with old SVL (Quantum) but needs add. Sees poorly with newer PAL (Aug 2017 - Jv) even with frame lowered to see over the magnification. The frame is ill-fitting. As the current frame sits on his face, he is looking through the intermediate area. Kayla (reinspector) could not spread nose pieces any further to lower the frame as the bridge size he was given elsewhere is too small. Dr Martinez verified the distance MR and it is close to his old SVLs. With +2.50 added over these, he read J1+ easily monocularly OU and binocularly. Npc was also reasonable today considering his hx of concussion. Plan: When the MR and adds were placed in a trial frame, he achieved 20/20 OU and J1+ OU. A small LH was noted, but he rejected any vertical prism. Will order new frame with wider bridge size. Have prescribed PAL without prisms. Will return to seeOlivia to be properly fitted in a suitable frame for the progressive lenses. GR will see when dispensed. May not need any convergence therapy but will reassess symptoms and re-measure convergence amplitudes after he has obtained and worn the new PALs. gr [ sees [facility] retina. Having cardiac surgery (for valve adjustment?) on Aug 23.] Reviewed chart, agree with driving teacher's impression and plan. Patient was not seen by an attending. Luz Maria Chappell MD 08/18/2018 APEUTIC RADIOLOGIST documented in this encounter Plan of Treatment Not on file documented as of this encounter Visit Diagnoses Diagnosis Postconcussion syndrome- Primary Post-traumatic headache, not intractable, unspecified chronicity pattern Visual disturbance Unspecified visual disturbance Convergence insufficiency Convergence insufficiency or palsy in binocular eye movement documented in this encounter Care Teams Turning Sander Tender Relationship Specialty Start Date End Date Suman Monique DO PCP - General 04/20/18 01/30/21 documented as of this encounter
--- OUTSIDE RECORDS SUMMARY | 2024-09-03 07:50 | XMS_ITS | Encounter Summary ---
Author Organization [facility] Address [address] [facility] [place] [address] Care Team Providers Care City Clerk Name Role Phone Rosa Chow MD Unavailable Johnathon Braga DO Primary Care Provider + Reason for Visit * Reason Comments Refill Request Encounter Details Date Type Department Care Team (Late st Contact Info) Description 02/12/2021 Refill [facility] Neurosciences [id number] [place] [phone] [place] [address] [address] Refill Request Social History Tobacco [...] Telephone Encounter - Teresa Mandujano MA - 02/12/2021 10:54 AM CDT Pt spouse, Nayana, called to check the status on pts refill. Nayana also request a 90 day supply on theDonepezil if possible. Please review, if okay make changes, and sign. Wily Bahena Allergies Allergen Reactions ??? Carbamazepine Rash and Swelling Requested Prescriptions Pending Prescriptions Disp Refills ??? donepezil (ARICEPT) 10 MG tablet [Pharmacy Med Name: DONEPEZIL HCL 10MG TABLET] 30 tablet 0 Sig: TAKE 1 (ONE) TABLET BY MOUTH AT BEDTIME LAST FILL: 01/18/21 LAST OV: 01/31/21 documented in this encounter Plan of Treatment Not on file documented as of this encounter Visit Diagnoses Diagnosis Memory loss documented in this encounter Care Teams City Clerk Relationship Specialty Start Date End Date Johnathon Braga DO [address] [place] [id number] PCP - General Family Medicine Geriatric Medicine 01/31/21 [place] [address] [place] [address] [place] [id number] Neurology 01/09/20 documented as of this encounter
--- OUTSIDE RECORDS SUMMARY | 2024-09-03 07:50 | XMS_ITS | Encounter Summary ---
Author Organization [facility] Address [address] [place] [address] Care Team Providers Care Banquet Waiter/Waitress Name Role Phone Suman Monique DO Primary Care Provider [phone] Reason for Visit * Reason Onset Date Comments Results 06/29/2018 Encounter Details Date Type Department Care Team (Late st Contact Info) Description 06/29/2018 Telephone [facility] [address] [phone] [place] [address] [address] Results Social History Tobacco Use [...] * Telephone Encounter - Hilda Sr - 06/29/2018 3:37 PM CDT I called the and informed her of Dr. Chow response. Nayana understood. Nayana asked if we could fax her the results. I checked with [facility] and she states it is our orders and we can release. I have faxed the results to [phone]. * Telephone Encounter - Rosa Chow MD - 06/29/2018 12:51 PM CDT Labs normal * Telephone Encounter - Hilda Sr - 06/29/2018 10:05 AM CDT called looking for lab results. Labs have been scanned in. Please review and advise. documented in this encounter Plan of Treatment Not on file documented as of this encounter Visit Diagnoses Not on filedocumented in this encounter Care Teams Banquet Waiter/Waitress Relationship Specialty Start Date End Date Suman Monique DO PCP - General 04/20/18 01/30/21 documented as of this encounter
--- OUTSIDE RECORDS SUMMARY | 2024-09-03 07:50 | XMS_ITS | Encounter Summary ---
Author Organization [facility] Health Address [address] [facility] [place] [address] Care Team Providers Care Immigration Law Specialist Name Role Phone Rosa Chow MD Unavailable Johnathon Braga DO Primary Care Provider + Reason for Visit * Reason Comments Tremors No changes since vis it Encounter Details Date Type Department Care Team (Latest Contact Info) Description 03/29/2021 11:20 AM CDT [facility] [address] [phone] [place] [address] [address] Postconcussion syndrome (Primary Dx); Memory loss Social History Tobacco Use Types [...] PM CDT documented as of this encounter Last Filed Vital Signs Vital Sign Reading Time Taken Comments Blood Pressure 122/82 03/29/2021 12:00 PM CDT Pulse 80 03/29/2021 12:00 PM CDT Temperature - - Respiratory Rate 17 03/29/2021 12:00 PM CDT Oxygen Saturation 93% 03/29/2021 12:00 PM CDT Inhaled Oxygen Concentration - - Weight - - Height 180.3 cm (5' 11 ) 03/29/2021 12:00 PM CDT Body Mass Index - - documented in this encounter Progress Notes * Rosa Chow MD - 03/29/2021 12:21 PM CDT 03/29/2021 Wily Bahena 65 year old Referring Physician: Dr. Johnathon Braga DO MD Chief Complaint: f-u Chief Complaint Patient presents with ??? Tremors No changes since visit HPI: Wiyl Mclaughlin a 65 year old came for follow up of postconcussion syndrome. Interval History: Has rare mild ryder. Anger throu the roof. Tremor about the same, and is on lamictal now. no dm, alcohol. Had neck surgery before. some lower back pain, headache is gone. Still has short term memory loss . Is not working, and he can cut grasses. Had finger tip and toes numbness. Multiple [...] (Patient not taking: Reported on 03/29/2021) ??? gyipgxhdou-sxjadnlsntxjk-gfpfnajq (FIORICET) 50-300-40 MG capsule Take 1 capsule [...] (Patient not taking: Reported on 03/29/2021) ??? [place]-3 Fatty Acids (FISH OIL PO) Take by [...] Not on file Occupational History ??? 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 Smoking status: Never Smoker [...] Gatherings with Friends and Family: ??? Attends Christian Services: ??? Active Member of Clubs or [...] ??? aMILoride-hydroCHLOROthiazide (MODURETIC) 5-50 MG tablet ??? bdmfwugcyr-lyjtpzwrqsqep-gtvyzweq (FIORICET) 50-300-40 MG capsule ??? divalproex DR (DEPAKOTE) 500 MG tablet ??? donepezil (ARICEPT) 10 MG tablet ??? hydrOXYzine pamoate (VISTARIL) 50 MG capsule ??? meclizine (ANTIVERT) 25 MG tablet ??? modafinil (PROVIGIL) 200 MG tablet ??? Multiple Vitamin (MULTI VITAMIN DAILY PO) ??? NAPROXEN DR PO ??? [place]-3 Fatty Acids (FISH OIL PO) ??? primidone (MYSOLINE) 50 MG tablet ??? sertraline (ZOLOFT) 100 MG tablet ??? testosterone cypionate (DEPO-TESTOTERONE) 200 MG/ML injection ??? venlafaxine XR 24hr (EFFEXOR XR) 75 MG capsule ??? VYVANSE 70 MG capsule No current facility-administered medications for this visit. EXAMINATION: BP 122/82 Pulse 80 Resp 17 Ht 1.803 m (5' 11 ) SpO2 93% BMI 31.38 kg/m2 General: NO acute process. Neck supple. [...] AJs. downgoing toes bl. Coordination/Cerebellar: Intact to zfmrvk-wlvc-udhysv. Gait: walks steady. Station: steady. Imaging/Laboratory review: No results for input(s): SODIUM, POTASSIUM, CHLORIDE, CO2, BUN, CREATININE, GLUCOSE, CALCIUM in thelast 31700 hours. No results for input(s): WBC, HGB, HCT, PLTCOUNT in the last 98058 hours. Recent Labs Component Name 07/01/17 1325 TSH 1.04 Recent Labs Component Name 07/01/17 1325 CK 54 No results for input(s): PHENYTOIN in the last 17256 hours. No results for input(s): VPA in the last 50094 hours. No results for input(s): ALBUMIN, ALKPHOS, ALT, AST, TBIL, DBIL, TPROT in the last 24428 hours. No results for input(s): CHOL, TRIG, HDL, LDLCALC, LDLDIRECT in the last 12865 hours. No results for input(s): HGBA1C in the last 34305 hours. No results for input(s): PGDPMSYB66 in the last 11697 hours. No results for input(s): AMMONIA in the last 59138 hours. No results for input(s): VRALRYCMF2YK, MNXUZNBKWG2O, XYDFKGOAJM3O, RVCOJZ2PM, DWXOAVDQDW7M in the last 34735 hours. Invalid input(s): QNJQMQBT8OA, RDCDYADG2PN, KYH6MMBF48, VVCOEESBGF3G, FTKHSTXKA4QB, DNNXFBZEJ0DW No results for input(s): COLORUA, CLARITYUA, SPECGRAVUA, PHUA, PROTEINUA, BLOODUA, LEUKOCYTEUA, NITRITEUA, GLUCOSEUA, KETONEUA, BILIRUBINUA, UROBILINUA, REDSUBUA, WBCUA, RBCUA, EPITHUA, MUCUSUA, BACTUA, YEASTUA, TRICHUA in the last 67777 hours. No results for input(s): WBC, RBC, HGB, HCT, MCV, MCHC, RDW, RDWCV, PLTCOUNT, NEUTPCT, LYMPHPCT, MONOCYTPCT, EOSINPCT, BASOPHILPCT, GRANSIMMPCT, LYMPHABS, MONOCYTABS, EOSINABS, BASOABS, IMMGRANSABS, NRBCAUTO in the last 45232 hours. No results for input(s): SEDRATE in the last 58096 hours. No results for input(s): CRP in the last 21007 hours. No results for input(s): INR in the last 07784 hours. Imaging No results found. Impression: 1) Postconcussion syndrome 2) Posttraumatic headache 3)MCI Essential Tremor Stress Discussion:has rare mild ryder.anger throu the roof. Overall seems better. No Tremor on exam [...] labs, and images visualized. 12/02 B12/tsh normal. [facility] eye institute: Recommend division head eval for convergence assessment Update prescription for [...] neuroapthy preacution. I made the following recommendations: [facility]. Off primidone . Reportedly on lamictal per his psych Dr. Tracy aricept 10mg po qhs. PT F-u Pyschiatry for anger issue. Fish oil. avoid head trauma. Fioricet prn. Advised about to avoid frequent pain medications to reduce chance of rebound headaches. Only use pain meds for severe headaches. Pt's family memberwife at encounter today, updated and all questions answered. RTC 2 months. .come to ER for [...] encounter Visit Diagnoses Diagnosis Postconcussion syndrome- Primary Memory loss documented in this encounter Care Teams Immigration Law Specialist Relationship Specialty Start Date End Date Johnathon Braga DO [address] [place] [address] PCP - General Family Medicine Geriatric Medicine 01/31/21 [place] [address] [place] [address] [place] [address] Neurology 01/09/20 documented as of this encounter
--- OUTSIDE RECORDS SUMMARY | 2024-09-03 07:51 | XMS_ITS | Encounter Summary ---
Author Organization [facility] Address [address] [facility] [place] [address] Care Team Providers Care Food Service Lead Name Role Phone Unavailable Primary Care Provider Unavailabl e Reason for Visit * Reason Onset Date Comments Follow-up 03/08/2017 Encounter Details Date Type Department Care Team (Late st Contact Info) Description 03/08/2017 Telephone [facility] [address] [phone] Yony Trevizo Follow-up Social History Tobacco Use Types Packs/Day Years Used Date Smoking Tobacco: Never Smokeless Tobacco: Never Sex and Gender Information Value Date Recorded Sex Assigned at Not on file Gender Identity Not on file Sexual Orientation Not on file documented as of this encounter Plan of Treatment Not on file documented as of this encounter Visit Diagnoses Not on filedocumented in this encounter
--- OUTSIDE RECORDS SUMMARY | 2024-09-03 07:51 | XMS_ITS | Encounter Summary ---
Author Organization [facility] Address [address] [facility] [facility] [place] [address] Care Team Providers Care Title I Assistant Name Role Phone Unavailable Primary Care Provider Unavailabl e Reason for Visit * Reason Onset Date Comments Opened In Error 07/01/2017 Encounter Details Date Type Department Care Team (Late st Contact Info) Description 07/01/2017 Telephone [facility] [address] [phone] [place] [address] [id number] Opened In Error Social History Tobacco Use Types Packs/Day Years [...]
--- OUTSIDE RECORDS SUMMARY | 2024-09-03 07:51 | XMS_ITS | Encounter Summary ---
Author Organization [facility] Address [address] [facility] [place] [address] Care Team Providers Care Optical Effects Line Up Person Name Role Phone Suman Monique DO Primary Care Provider [phone] Reason for Visit * Reason Onset Date Comments MEDICATION REFILL 05/13/2018 Encounter Details Date Type Department Care Team (Late st Contact Info) Description 05/13/2018 Refill [facility] [address] [facility] [address] [place] [phone] [place] [address] [address] MEDICATION REFILL Social History Tobacco [...] encounter Miscellaneous Notes * Telephone Encounter - Maria Del Carmen Martines - 05/13/2018 2:16 PM CDT Wily Bahena No Known Allergies Requested Prescriptions Pending Prescriptions Disp Refills ??? propranolol CR 24hr (INDERAL LA) 60 MG capsule 90 capsule 2 Sig: Take 1 capsule by mouth once daily ??? nortriptyline (PAMELOR) 10 MG capsule 270 capsule 2 Sig: Take 3 capsules by mouth at bedtime LAST FILL: 12/02/17, 09/03/17 LAST OV: 12/02/17 REQUESTING 90 DAY SUPPLY documented in this encounter Plan of Treatment Not on file documented as of this encounter Visit Diagnoses Diagnosis Benign essential tremor Essential and other specified forms of tremor Postconcussion syndrome documented in this encounter Care Teams Optical Effects Line Up Person Relationship Specialty Start Date End Date Suman Monique DO PCP - General 04/20/18 01/30/21 documented as of this encounter
--- OUTSIDE RECORDS SUMMARY | 2024-09-03 07:51 | XMS_ITS | Clinical Summary ---
Author Organization [facility] Address [address] [place] [address]. [place] [address] [place] [address] Care Team Providers Care Business Administration Professor Name Role Phone KrisranjanhongjuanaJohnathon Timbo SHELTON Primary Care Provider + Allergies Active Allergy Reactions Criticality Noted Date Comments Carbamazepine Rash,Swelling High 02/13/2020 Medications hydrOXYzine 50 MG tablet Take by mouth every 8 (eight) hours as needed. 10/29/19 21 Active testosterone cypionate 200 MG/ML injection Inject 1 mL (200 mg total) into the muscle every 21 days. 10/13/19 21 Active Multiple Vitamins-Minerals (CENTRUM ADULTS OR) Take 1 tablet by mouth daily. Active fish oil 1000 MG Cap capsule Take by mouth 2 (two) times daily. Active vitamin D3, cholecalciferol, 1000 UNIT Tab tablet Take 2 tablets (2,000 Units total) by mouth daily. Active lamoTRIgine 100 MG tablet Take 1 tablet (100 mg total) by mouth 2 (two) times daily. 01/01/20 21 Active tamsulosin 0.4 MG Cap Take 1 capsule (0.4 mg total) by mouth daily. 01/14/20 22 Active meclizine (ANTIVERT) 25 MG tabletIndications: Dizziness Take 1 tablet (25 mg total) by mouth daily as needed. 30 tablet 02/24/20 23 Active Additional Information Patient taking differently:25 mg Oral3 times daily PRN, Reported on 09/01/2024 Alpha-Lipoic Acid 600 MG Tab Take 1 tablet by mouth daily. Active Glucose Blood (ACCU-CHEK GUIDE) test stripIndications:T ype 2 diabetes mellitus without complication, without long-term current use of insulin ([facility]/HCC HHS/HCC) 1 strip by Other route as needed. Use once daily in the AM while fasting. 100 strip 1 11/16/19 24 Active Blood Glucose Monitoring Suppl (D-CARE GLUCOMETER) w/Device KitIndications:Typ e 2 diabetes mellitus without complication, without long-term current use of insulin (CMS/HCC HHS/HCC) 1 Device by Does not apply route once for 1 dose. Accu-check brand 1 kit 11/16/19 24 Active Glucose Blood ([employer] GLUCOSE METER TEST STRIPS) test stripIndications:T ype 2 diabetes mellitus without complication, without long-term current use of insulin (CMS/HCC HHS/HCC) 1 strip by Other route as needed. Use as instructed. Generic brand. 100 strip 3 11/26/19 24 Active gabapentin (NEURONTIN) 600 MG tabletIndications: Peripheral polyneuropathy take 1 tablet by mouth three times daily 270 tablet 01/18/20 24 Active Cyanocobalamin (VITAMIN B-12) 50 MCG Tab Take 50 mcg by mouth once. Active cephALEXin (KEFLEX) 500 MG capsule Take 1 capsule (500 mg total) by mouth 2 (two) times daily. 14 capsule 04/21/20 24 Active Lancets MiscIndications:Ty pe 2 diabetes mellitus without complication, without long-term current use of insulin (CMS/HCC HHS/HCC) 1 Lancet by Does not apply route daily as needed. Once daily. Use accu-check brand. 100 each 10 05/26/20 24 025 Active Glucose Blood (ACCU-CHEK GUIDE) test stripIndications:T ype 2 diabetes mellitus without complication, without long-term current use of insulin (CMS/HCC HHS/HCC) 1 strip by Other route every morning before breakfast. Use as instructed 50 strip 2 05/30/20 24 Active glipiZIDE XL (GLUCOTROL XL) 5 MG 24 hr tabletIndications: Type 2 diabetes mellitus without complication, without long-term current use of insulin (CMS/HCC HHS/HCC) TAKE 1 TABLET BY MOUTH ONCE DAILY WITH BREAKFAST DO NOT BREAK OR CRUSH TABLET 30 tablet 2 06/07/20 24 Active chlorthalidone (HYGROTEN) 25 MG tabletIndications: Essential hypertension Take 1 tablet by mouth once daily 90 tablet 07/13/20 24 Active QUEtiapine (SEROQUEL) 25 MG tablet Take 0.5 tablets (12.5 mg total) by mouth daily. 05/25/20 24 Active PARoxetine (PAXIL) 40 MG tablet Take 1 tablet (40 mg total) by mouth every morning. 07/20/20 24 Active allopurinol (ZYLOPRIM) 300 MG tabletIndications: Idiopathic gout, unspecified chronicity, unspecified site Take 1 tablet by mouth once daily 90 tablet 08/03/20 24 Active atorvastatin (LIPITOR) 10 MG tabletIndications: Hyperlipidemia TAKE 1 TABLET BY MOUTH NIGHTLY AT BEDTIME 90 tablet 08/03/20 24 Active donepezil (ARICEPT) 10 MG TabIndications:Mem ory loss Take 1 tablet (10 mg total) by mouth daily. 90 tablet 3 09/03/20 23 024 propranolol LA (INDERAL LA) 60 MG 24 hr capsuleIndications :Traumatic brain injury with loss of consciousness, sequela ([facility]/HCC) Take 1 capsule (60 mg total) by mouth daily. 30 capsule 11 09/03/20 23 024 Active Problems Problem Noted Date Diagnosed Date Umbilical hernia without obstruction or gangrene 02/09/2024 Cataract of both eyes, unspecified cataract type 2023 ROSEMARIE (obstructive sleep apnea) 2023 Hypersexuality 2023 Marital relationship problem 07/07/2023 Paraphilia, unspecified 07/07/2023 Sexual behavior disorder 07/07/2023 Moderate episode of recurren t major depressive disorder ([facility]) 07/04/2023 Severe recurrent major depre ssion without psychotic features ([facility]) 07/04/2023 Prediabetes 06/08/2023 Irritability and anger 11/03/2020 Hypogonadism in male 11/03/2020 Benign essential tremor 06/04/2018 Convergence insufficiency 04/21/2018 Visual disturbance 04/20/2018 Postconcussion syndrome 06/24/2017 Post-traumatic headache, not intractable 017 Dizziness 06/16/2017 Fatigue 06/16/2017 Hypertension 06/16/2017 Syncope 06/16/2017 Lesion of ulnar nerve 03/14/2017 Cubital tunnel syndrome on left 03/14/2017 Calculus of kidney 04/25/2013 Idiopathic gout 04/25/2013 Resolved Problems Problem Noted Date Diagnosed Date Resolved Date Closed fibular fracture 04/20/2024 08/0 03/2024 Encounters Date Type Department Care Team Description 09/02/2024 Orders Only [facility] General Surgery [address], [address] [place] [phone] Zay Juárez MD 09/01/2024 3:35 PM SYSTEMS MECHANIC Office Visit [facility] Surgery [address], [address] [phone] Zay Juárez MD Umbilical Hernia (FU from umbilical hernia repair 04/21/24- area puffy and some soreness off and on) 09/01/2024 Travel 08/22/2024 Scan [facility] HE[facility] INFO SRVCS Scanned, [facility] 08/16/2024 Scan [facility] HEALTH INFO SRVCS Scanned, [facility] 07/22/2024 11:20 AM SYSTEMS MECHANIC Office Visit [facility] Family & Internal Medicine [address] [phone] Johnathon Braga, Diabetes (3 month follow up ) 07/22/2024 Travel from Last 3 Months Immunizations Name Administration Dates Next Due Fluzone High Dose (IIV, trivalent, 0.5mL) 2023 Fluzone High Dose - >Age 65 (Prefilled Syringe) 07/09/2023 DEBBIE (KEVIN & KEVIN) COVID-19 AD26 VACCINE 0.5 ML IM SUSP 11/22/2020 Pneumococcal (Prevnar 20) 07/22/2024 Td 05/04/2008 Tdap (Generic) 06/04/2021 Family History Medical History Relation Comments Prostate Cancer Brother Liver Disease Father Cancer Mother No Known Problems Sister Relation Status Comments Brother Alive Father Mother Sister Alive Social History Tobacco Use Types Packs/Day Years Used Date Smoking Tobacco: Never Smokeless Tobacco: Never Tobacco Cessation:Counseling Given: Not Answered Comments:na Alcohol Use Standard Drinks/Week Comments Never 0 (1 standard drink = 0.6 oz pur e alcohol) AUDIT-C Answer Date Recorded Q1: How often do you have a drink containing alc ohol? Never 10/31/2020 Average Number of Drinks Not on file 021 Frequency of Binge Drinking Not on file 10/15 PHQ-2 Answer Date Recorded Patient Health Questionnaire-2 Score 0 11/16/2023 Sex and Gender Information Value Date Recorded Sex Assigned at Not on file Legal Sex Male 11:26 AM SYSTEMS MECHANIC Gender Identity Not on file Sexual Orientation Not on file Last Filed Vital Signs Vital Sign Reading Time Taken Comments Blood Pressure 140/82 09/01/2024 3:30 PM SYSTEMS MECHANIC Pulse 55 09/01/2024 3:30 PM SYSTEMS MECHANIC Temperature 36.9 ??C (98.5 ??F) 09/01/2024 3:30 PM CS T Respiratory Rate 20 09/01/2024 3:30 PM SYSTEMS MECHANIC Oxygen Saturation 95% 09/01/2024 3:30 PM SYSTEMS MECHANIC Inhaled Oxygen Concentration - - Weight 104.1 kg (229 lb 6.4 oz) 09/01/2024 3:30 PM SYSTEMS MECHANIC Height 180.3 cm (5' 11 ) 09/01/2024 3:30 PM SYSTEMS MECHANIC Body Mass Index 31.99 09/01/2024 3:30 PM SYSTEMS MECHANIC Plan of Treatment Upcoming Encounters Date Type Department Care Team (Late st Contact Info) Description 09/10/2024 11:30 AM SYSTEMS MECHANIC Appointment [facility] [address] [place], [place] [phone] [place] Juá[place] [address] [facility] [address] [place] [phone] 10/25/2024 9:20 AM SYSTEMS MECHANIC Office Visit [facility] Family & Internal Medicine - [address] [phone] [place] [address] [place] [phone] 11/21/2024 9:40 AM CDT Office Visit [facility] Multispecialty Care - [address], [address] [place] [phone] Shelli Gonzalez MD [address] [place] [address] Health Maintenance Due Date Last Done Comments Annual Medicare Wellness Visit 2022 Zoster Vaccines (1 of 2) 07/22/2025 Pos tponed from 2007 (Going to Outside Clinic) Colorectal Cancer Screening Colonoscopy (10 Years) 07/09/2028 07/09/2018 DTaP, Tdap and Td Vaccines ( 2 - Td or Tdap) 06/04/2031 06/04/2021, 05/04/2008 RSV Immunization or 60+ Years (1 - 1-dose 75+ series) 2032 COVID-19 Vaccine (2 - 2023-2 5 season) 2112 11/22/2020 Postponed from 05/15 (Going to Outside Clinic) Hepatitis C Completed 02/06/2022 Influenza Adult Completed 07/22/2024, 07/09/2023 Pneumococcal Vaccine: 65+ Years Completed 07/22/2024 Meningococcal Vaccine Aged Out No abner opal eligible based on patient's age to complete this topic RSV Immunizations Under 20 Months Aged Out No longer eligible b ased on patient's age to complete this topic Medical Devices Implanted Type Area Scout Leaser Device Identifier Shelf Expiration Date Model / Serial / Lot Mesh Ventralex St Medium With Strap [id number] - [id number] Implanted:Qty : 1 on 04/21/2024 by Zay Juárez MD at [facility] Mesh N/A: Abdomen [employer] - [employer] [id number] 07/11/2025 [id number] / / [id number] Procedures Procedure Name Priority Date/Time Associated Diagnosis Comments COLLECT.CAPILLARY (FNGR,HEEL,EAR) Routine 07/22/2024 11:43 AM SYSTEMS MECHANIC Type 2 diabetes mellitus without complication, without long-term current use of insulin ([facility]) HEMOGLOBIN, GLYCOSYLATED Routine 07/22/2024 Type 2 diabetes mellitus without complication, without long-term current use of insulin ([facility]) ALBUMIN URINE RANDOM W/CREATININE Routine 07/14/2024 12:19 PM CDT Type 2 diabetes mellitus without complication, without long-term current use of insulin (CMS/HCC HHS/HCC) VITAMIN D, 25 OH TOTAL Routine 12:19 PM CDT Type 2 diabetes mellitus without complication, without long-term current use of insulin (CMS/HCC HHS/HCC) Essential hypertension Vitamin D deficiency LIPID PANEL Routine 07/14/2024 12:19 PM CDT Type 2 diabetes mellitus without complication, without long-term current use of insulin (CMS/HCC HHS/HCC) Essential hypertension Vitamin D deficiency TSH W/REFLEX Routine 07/14/2024 12:19 PM CDT Type 2 diabetes mellitus without complication, without long-term current use of insulin (CMS/HCC HHS/HCC) Essential hypertension Vitamin D deficiency COMPREHENSIVE METABOLIC PANEL Routine 07/14/2024 12:19 PM CDT Type 2 diabetes mellitus without complication, without long-term current use of insulin (CMS/HCC HHS/HCC) Essential hypertension Vitamin D deficiency CBC W/DIFF AUTOMATED Routine 07/14/2024 12:19 PM CDT Type 2 diabetes mellitus without complication, without long-term current use of insulin (CMS/HCC HHS/HCC) Essential hypertension Vitamin D deficiency HEPATITIS C ANTIBODY W/RFX TO HCV RNA Routine 02/06/2022 11:42 AM CDT Need for hepatitis C screening test COLONOSCOPY GENERIC (SCAN ORDER) 07/09/2018 from Last 3 Months or Most Recently Relevant to Health Maintenance Results * HEMOGLOBIN, GLYCOSYLATED (07/22/2024) HGB A1C 6.1 % HPOENIX DUNN 07/22/2024 us Johnathon Braga DO LABORATORY Final Re sult [facility] [address] [place] [address], * TSH W/REFLEX (07/14/2024 12:19 PM CDT) [facility] TSH 0.74 0.40 - 4.50 mIU/L [facility] 07/14/2024 12:1 9 PM CDT 07/14/2024 12:27 PM CDT Narrative [facility] - 07/15/2024 9:23 PM CDT COLLECTION KIT GIVEN TO PATIENT. PATIENT ADVISED TO RETURN. Resulting Agency Comment Performing Organization Information: ?Site ID: [place] ?Name: [employer] ?Address: [address] [place] [address] ?Director: Refugio Pennington MD Johnathon Braga DO LABORATORY Final Re sult [facility] [address] [place] [address], * VITAMIN D, 25 OH TOTAL (07/14/2024 12:19 PM CDT) [facility] VITAMIN D 25 HYDROXY TOTAL S/P/B 35 30 - 100 ng/mL [facility] Comment: Vitamin D Status ? 25-OH Vitamin D: Deficiency: ?<20 ng/mL Insufficiency: ? 20 - 29 ng/mL Optimal: ? > or = 30 ng/mL For 25-OH Vitamin D testing on patients on D2-supplementation and patients for whom quantitation of D2 and D3 fractions is required, the QuestAssureD(TM) 25-OH VIT D, (D2,D3), LC/MS/MS is recommended: order code 20880 (patients >2yrs). See Note 1 Note 1 For additional information, please refer to http://education.DubMeNow/faq/YKH549 (This link is being provided for informational/ educational purposes only.) 07/14/2024 12:1 9 PM CDT 07/14/2024 12:27 PM CDT Narrative [facility] - 07/15/2024 9:23 PM CDT COLLECTION KIT GIVEN TO PATIENT. PATIENT ADVISED TO RETURN. Resulting Agency Comment Performing Organization Information: ?Site ID: [place] ?Name: [facility] ?Address: [address] [facility] [place] [address] ?Director: Refugio Pennington MD us Johnathon Braga DO LABORATORY Final Re sult [facility] [address] [place] [address], * ALBUMIN/CREATININE RATIO, RANDOM URINE (07/14/2024 12:19 PM CDT) CREATININE RANDOM (U) 138 20 - 320 mg/dL [facility] MICROALBUMIN (U) 1.1 See Note: mg/dL [facility] Comment: Reference Range: Reference Range Not established MICROALB/CREAT 8 <30 mg/g creat [facility] Comment: The ADA defines abnormalities in albumin excretion as follows: Albuminuria Category ?Result (mg/g creatinine) Normal to Mildly increased ?? <30 Moderately increased ? 30-299 Severely increased ? > OR = 300 The ADA recommends that at least two of three specimens collected within a 3-6 month period be abnormal before considering a patient to be within a diagnostic category. URINE SPECIMEN / Unknown 07/14/2024 12:19 PM CDT 07/14/2024 12:27 PM CDT Narrative [facility] - 07/15/2024 9:23 PM CDT COLLECTION KIT GIVEN TO PATIENT. PATIENT ADVISED TO RETURN. Resulting Agency Comment Performing Organization Information: ?Site ID: [place] ?Name: [employer] ?Address: [address] [address] ?Director: Refugio Pennington MD us Johnathon Braga DO URINE ORDERABLES Final R esult [facility] [address] [address] [place] [address], * (ABNORMAL) COMPREHENSIVE METABOLIC PANEL (07/14/2024 12:19 PM CDT) GLUCOSE 109(H) 65 - 99 mg/dL [facility] Comment: ? Fasting reference interval For someone without known diabetes, a glucose value between 100 and 125 mg/dL is consistent with prediabetes and should be confirmed with a follow-up test. BUN 14 7 - 25 mg/dL [facility] CREATININE S/P/B 0.84 0.70 - 1.35 mg/dL [facility] GFR ESTIMATE 96 > OR = 60 mL/min/1. 73m2 [facility] BUN CREATININE RATIO SEE NOTE: 6 (calc) [facility] Comment: ?? Not Reported: BUN and Creatinine are within ?? reference range. ? SODIUM S/P/B 141 135 - 146 mmol/L [facility] POTASSIUM S/P/B 4.2 3.5 - 5.3 mmol/L [facility] CHLORIDE S/P/B 106 98 - 110 mmol/L [facility] CO2 29 20 - 32 mmol/L [facility] CALCIUM S/P/B 8.8 8.6 - 10.3 mg/dL [facility] TOTAL PROTEIN S/P/B 6.9 6.1 - 8.1 g/dL [facility] ALBUMIN S/P/B 4.1 3.6 - 5.1 g/dL [facility] GLOBULIN 2.8 1.9 - 3.7 g/dL (calc) [facility] ALBUMIN/GLOBULI N RATIO 1.5 1.0 - 2.5 (calc) [facility] BILIRUBIN TOTAL S/P/B 0.7 0.2 - 1.2 mg/dL [facility] ALKALINE PHOSPHATASE S/P/B 134 35 - 144 U/L [facility] AST 22 10 - 35 U/L [facility] ALT 30 9 - 46 U/L [facility] 07/14/2024 12:1 9 PM CDT 07/14/2024 12:27 PM CDT Narrative [facility] - 07/15/2024 9:23 PM CDT COLLECTION KIT GIVEN TO PATIENT. PATIENT ADVISED TO RETURN. Resulting Agency Comment Performing Organization Information: ?Site ID: [place] ?Name: [employer] ?Address: [address] [facility] [place] [address] ?Director: Refugio Pennington MD us Johnathon Braga DO LABORATORY Final Re sult [facility] [address] [facility] [place] [address], * (ABNORMAL) LIPID PANEL (07/14/2024 12:19 PM CDT) CHOLESTEROL 107 <200 mg/dL [facility] HDL 28(L) > OR = 40 mg/dL [facility] TRIGLYCERIDES 143 <150 mg/dL [facility] LDL (CALCULATED) 56 mg/dL (calc) [facility] Comment: Reference range: <100 Desirable range <100 mg/dL for primary prevention; ?? <70 mg/dL for patients with CHD or diabetic patients with > or = 2 CHD risk factors. LDL-C is now calculated using the Jimbo-David calculation, which is a validated novel method providing better accuracy than the Friedewald equation in the estimation of LDL-C. Jimbo SS et al. YAMILET. 2013;310(19): 1476-5064 (http://education.DubMeNow/faq/THM474) CHOL/HDL RATIO 3.8 <5.0 (calc) [facility] NON HDL CHOLESTEROL 79 <130 mg/dL (calc) [facility] Comment: For patients with diabetes plus 1 major ASCVD risk factor, treating to a non-HDL-C goal of <100 mg/dL (LDL-C of <70 mg/dL) is considered a therapeutic option. 07/14/2024 12:1 9 PM CDT 07/14/2024 12:27 PM CDT Narrative [facility] - 07/15/2024 9:23 PM CDT COLLECTION KIT GIVEN TO PATIENT. PATIENT ADVISED TO RETURN. Resulting Agency Comment Performing Organization Information: ?Site ID: [place] ?Name: [facility]omen[facility] Sharpe ?Address: [address] [place] [address] [place] [address] ?Director: Refugio Pennington MD us Johnathon Braga DO LABORATORY Final Re sult [facility] [address] [place] [address], * (ABNORMAL) CBC W/DIFF AUTOMATED (07/14/2024 12:19 PM CDT) WBC 6.1 3.8 - 10.8 Thousand/u L [facility] RBC 5.37 4.20 - 5.80 Million/uL [facility] HGB 16.8 13.2 - 17.1 g/dL [facility] HCT 48.9 38.5 - 50.0 % [facility] MCV 91.1 80.0 - 100.0 fL [facility] MCH 31.3 27.0 - 33.0 pg [facility] MCHC 34.4 32.0 - 36.0 g/dL [facility] Comment: For adults, a slight decrease in the calculated MCHC value (in the range of 30 to 32 g/dL) is most likely not clinically significant; however, it should be interpreted with caution in correlation with other red cell parameters and the patient's clinical condition. RDW 13.0 11.0 - 15.0 % [facility] PLT 132(L) 140 - 400 Thousand/u L [facility] MPV 12.2 7.5 - 12.5 fL [facility] ABS. NEUTROPHILS 3,892 1,500 - 7,800 cells/uL [facility] ABS. LYMPHOCYTES 1,415 850 - 3,900 cells/uL [facility] ABS. MONOCYTES 592 200 - 950 cells/uL [facility] ABS. EOSINOPHILS 159 15 - 500 cells/uL [facility] ABS. BASOPHILS 43 0 - 200 cells/uL [facility] SEG NEUTROPHILS 63.8 % [facility] LYMPHOCYTES 23.2 % [facility] MONOCYTES 9.7 % [facility] EOSINOPHILS 2.6 % [facility] BASOPHILS 0.7 % [facility] 07/14/2024 12:1 9 PM CDT 07/14/2024 12:27 PM CDT Narrative [facility] - 07/15/2024 9:23 PM CDT COLLECTION KIT GIVEN TO PATIENT. PATIENT ADVISED TO RETURN. Resulting Agency Comment Performing Organization Information: ?Site ID: [place] ?Name: [employer] ?Address: [address] [place] [address] [place] [address] ?Director: Refugio Pennington MD us Johnathon Braga DO LABORATORY Final Re sult [facility] [id number] [place] [address] [facility], [place] [address] * HEPATITIS C ANTIBODY W/RFX TO HCV RNA ([facility] ONLY) (02/06/2022 11:42 AM CDT) HEPATITIS C AB NON-REACTI VE NON-REACT CATHERINE [facility] SIGNAL TO CUTOFF 0.01 <[address] [facility] Comment: HCV antibody was non-reactive. There is no laboratory evidence of HCV infection. In most cases, no further action is required. However, if recent HCV exposure is suspected, a test for HCV RNA (test code 69815) is suggested. For additional information please refer to http://education.Ensyn/faq/CZK37r2 (This link is being provided for informational/ educational purposes only.) 02/06/2022 11:4 2 AM CDT 02/07/2022 12:41 PM CDT us Johnathon Braga DO LABORATORY Final Re sult [facility] [address] [address] * COLONOSCOPY GENERIC (07/09/2018) 07/09/2018 Narrative 07/09/2018 Ordered by an unspecified provider. us Documents Scanned SCANNING Final Result from Last 3 Months or Most Recently Relevant to Health Maintenance Insurance MEDICARE [facility] Advance Directives Documents on File Type Date Recorded Patient Ship'S Master Expl anation Advance Directives and Living Will 11/05/2020 1:19 PM [facility]ayana [facility]hena [facility] Business Administration Professor Relationship Specialty Start Date End Date Johnathon Braga DO [address] [place], [place] [id number] PCP - General FAMILY PRACTICE 10/31/20
--- OUTSIDE RECORDS SUMMARY | 2024-09-03 07:51 | XMS_ITS | Encounter Summary ---
Author Organization [facility] Address [address] [facility] [place] [address] Care Team Providers Care Behavioral Technician Name Role Phone Unavailable Primary Care Provider Unavailabl e Reason for Visit * Reason Onset Date Comments General 07/24/2017 STD paperwork Encounter Details Date Type Department Care Team (Late st Contact Info) Description 07/24/2017 Telephone [facility] [employer] [facility] [address] [facility] [address] [place] [phone] [place] [address] [address] General (STD paperwork) Social History Tobacco Use Types Packs/Day Years [...] Encounter - Maria Del Carmen Martines - 07/27/2017 9:50 AM CST Called Michael and spoke with Rodolfo who stated that they did in fact receive the paperwork just has not be reviewed. ORK OPERATIONS SPECIALIST * Telephone Encounter - Reina Chase - 07/24/2017 10:16 AM CST Patients called wanting to know if the disability paperwork had been sent over, adv per notes completed on 07/22, she stated that the company states they did not receive them and the STD runs outtoday. Stated that they needed the notes from both visits that had including the diagnosis on the tests that were ran. Gave number of [phone] -yvonne if you needed to call michael. Nayana would like a call back with an update. ORK OPERATIONS SPECIALIST documented in this encounter Plan of Treatment Not on file documented as of this encounter Visit Diagnoses Not on filedocumented in this encounter
--- OUTSIDE RECORDS SUMMARY | 2024-09-03 07:51 | XMS_ITS | Encounter Summary ---
Author Organization [facility] Address [address] [facility] [address] Care Team Providers Care Human Resources Benefits Administrator Name Role Phone Suman Monique DO Primary Care Provider [phone] Reason for Visit * Reason Comments Follow-up Encounter Details Date Type Department Care Team (Latest Contact Info) Description 06/04/2018 10:00 AM CDT Office Visit [facility] [address] [facility] [address] [place] [phone] [place] [address] [address] Postconcussion syndrome (Primary Dx); Numbness; Benign essential tremor Social History Tobacco Use Types Packs/Day Years [...] Sign Reading Time Taken Comments Blood Pressure 106/74 06/04/2018 10:18 AM CDT Pulse 78 06/04/2018 10:18 AM CDT Temperature - - Respiratory Rate 16 06/04/2018 10:18 AM CDT Oxygen Saturation 97% 06/04/2018 10:18 AM CDT Inhaled Oxygen Concentration - - Weight 95.3 kg (210 lb) 06/04/2018 10:18 AM CDT Height 180.3 cm (5' 11 ) 06/04/2018 10:18 AM CDT Body Mass Index 29.29 06/04/2018 10:18 AM CDT documented in this encounter Progress Notes * Rosa Chow MD - 06/04/2018 10:33 AM CDT 06/04/2018 Wily Bahena 62 y.o. Referring Physician: Dr. Suman Monique DO MD Chief Complaint: Chief Complaint Patient presents with ??? Follow-up HPI: Wily Mclaughlin a 62 y.o. came for follow up of postconcussion syndrome. He had neck surgery by Dr. He, which has helped his headache. He still had some irritability. He had some blurry vision.He is to see an director of contracts. He had no more vision loss. He fell a couple of times without pass-out. The headache is on the frontal area, up to 3/10, aching pain without nausea, light and sound se nsitivity. Nortriptyline 20mg QHS helped him, 30mg made him too sleepy. He had some memory loss. Hestill had dizziness with lightheadedness and blurry vision. [...] 12/21/2017 ??? Hernia Repair 1971 Current Outpatient Prescriptions Medication Sig Dispense Refill ??? venlafaxine XR 24hr (EFFEXOR XR) 75 MG capsule Take 75 mg by mouth once daily 1 ??? propranolol CR 24hr (INDERAL LA) 60 MG capsule Take 1 capsule by mouth once daily 90 capsule 2 ??? nortriptyline (PAMELOR) 10 MG capsule Take 3 capsules by mouth at bedtime 270 capsule 2 ??? [place]-3 Fatty Acids (FISH OIL PO) Take by mouth 2 times daily ??? VYVANSE 70 MG capsule Take 70 mg by mouth once daily 0 ??? hydrOXYzine pamoate (VISTARIL) 50 MG capsule Take 1 capsule by mouth 3 times daily as needed 0 ??? meclizine (ANTIVERT) 25 MG tablet Take 25 mg by mouth 3 times daily as needed 0 ??? testosterone cypionate (DEPO-TESTOTERONE) 200 MG/ML injection Inject 1 mL into muscle every 14 days 5 ??? Multiple Vitamin (MULTI VITAMIN DAILY PO) Take 1 tablet by mouth once daily Reasons: Centrium Silver 50+ ??? zbyrtrkcoe-hvutvayznuiwi-gfkmmxbh (FIORICET) 50-300-40 MG capsule Take 1 capsule by mouth every4 hours as needed for Headache 30 capsule 3 ??? allopurinol (ZYLOPRIM) 300 MG tablet Take 300 mg by mouth once daily ??? aMILoride-hydroCHLOROthiazide (MODURETIC) 5-50 MG tablet Take 1 Tab by mouth once daily ??? sertraline (ZOLOFT) 100 MG tablet Take 150 mg by mouth once daily No current facility-administered medications for this visit. No Known Allergies Social History Social History ??? Marital status: Spouse name: N/A ??? Number of children: 1 ??? 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 Smoking status: Never Smoker ??? Smokeless tobacco: Never Used ??? Alcohol use No ??? Drug use: No ??? Sexual activity: Not on file Other Topics Concern ??? Not on file Social History Narrative Family Status Relation Status ??? Mother ??? Father ??? Sister Alive ??? Brother Alive Family History Problem Relation Age of Onset ??? Cancer - Breast Mother ??? Cirrhosis Father ??? Cancer - Prostate Brother Current Outpatient Prescriptions Medication ??? venlafaxine XR 24hr (EFFEXOR XR) 75 MG capsule ??? propranolol CR 24hr (INDERAL LA) 60 MG capsule ??? nortriptyline (PAMELOR) 10 MG capsule ??? [place]-3 Fatty Acids (FISH OIL PO) ??? VYVANSE 70 MG capsule ??? hydrOXYzine pamoate (VISTARIL) 50 MG capsule ??? meclizine (ANTIVERT) 25 MG tablet ??? testosterone cypionate (DEPO-TESTOTERONE) 200 MG/ML injection ??? Multiple Vitamin (MULTI VITAMIN DAILY PO) ??? lzqiocwrqw-kdctlxazfhrar-vgarjxmw (FIORICET) 50-300-40 MG capsule ??? allopurinol (ZYLOPRIM) 300 MG tablet ??? aMILoride-hydroCHLOROthiazide (MODURETIC) 5-50 MG tablet ??? sertraline (ZOLOFT) 100 MG tablet No current facility-administered medications for this visit. EXAMINATION: BP 106/74 (BP SITE: LEFT ARM, BP POSITION: SITTING, BP CUFF SIZE: 11) Pulse 78 Resp 16 Ht 1.803 m (5' 11 ) Wt 95.3 kg (210 lb) SpO2 97% BMI 29.29 kg/m2 General: General appearance: well developed, in [...] to light touch, temperature. Coordination/Cerebellar: Intact to rnaygx-tvdu-vporkp. Gait: walks heel and toe without difficulty, normal tandem gait and Romberg test. Station: steady. Imaging/Laboratory review: No results for input(s): SODIUM, POTASSIUM, CHLORIDE, CO2, BUN, CREATININE, GLUCOSE, CALCIUM in thelast 51662 hours. No results for input(s): WBC, HGB, HCT, PLTCOUNT in the last 94633 hours. Recent Labs Component Name 07/01/17 1325 TSH 1.04 Recent Labs Component Name 07/01/17 1325 CK 54 No results for input(s): PHENYTOIN in the last 25798 hours. No results for input(s): VPA in the last 03254 hours. No results for input(s): ALBUMIN, ALKPHOS, ALT, AST, TBIL, DBIL, TPROT in the last 03643 hours. No results for input(s): CHOL, TRIG, HDL, LDLCALC, LDLDIRECT in the last 37327 hours. No results for input(s): HGBA1C in the last 97704 hours. No results for input(s): HCGNWKIJ63 in the last 41184 hours. No results for input(s): AMMONIA in the last 44796 hours. No results for input(s): MQSBJJIRW1GM, VQAGZHTMUV0U, GXLGWOBLAB3Y, UBXVJB3LR, NALHJZBTFX6Y in the last 19841 hours. Invalid input(s): LPGHNSWX6LJ, QRZRSLCI6WF, AUE5VQLU37, ODEJLRVZQV0P, NFOHNVNEQ7NQ, HJMFMPVTC2EF No results for input(s): COLORUA, CLARITYUA, SPECGRAVUA, PHUA, PROTEINUA, BLOODUA, LEUKOCYTEUA, NITRITEUA, GLUCOSEUA, KETONEUA, BILIRUBINUA, UROBILINUA, REDSUBUA, WBCUA, RBCUA, EPITHUA, MUCUSUA, BACTUA, YEASTUA, TRICHUA in the last 67907 hours. No results for input(s): WBC, RBC, HGB, HCT, MCV, MCHC, RDW, RDWCV, PLTCOUNT, NEUTPCT, LYMPHPCT, MONOCYTPCT, EOSINPCT, BASOPHILPCT, GRANSIMMPCT, LYMPHABS, MONOCYTABS, EOSINABS, BASOABS, IMMGRANSABS, NRBCAUTO in the last 99048 hours. No results for input(s): SEDRATE in the last 85963 hours. No results for input(s): CRP in the last 88340 hours. No results for input(s): INR in the last 75606 hours. Imaging No results found. Impression: 1) Postconcussion syndrome 2) Posttraumatic headache 3)Memory loss Essential Tremor Stress Discussion: Overall postconcussion syndrome is better. Had 2 fall since last visits. Tremor [...] no sig. Stenosis. Pt updated about above. [facility]: Recommend boot repairer eval for convergence assessment Update prescription for glasses after that ?? Per Luz Maria Chappell MD I made the following recommendations: Inderal 60mg po daily if ok pcp. PT F-u ophthalmology. Continue Nortriptyline 20mg po qhs. Fish oil. avoid head trauma. Fioricet prn. Advised about to avoid frequent pain medications to reduce chance of rebound headaches. Only use pain meds for severe headaches. Labs. Deferred emg/ncv. Deferred memory eval and work up. RTC 3 months. Accompanied by his . all questions [...] detail, agreeable with patient. I have spent over 40 minutes with this patient and more than 50% of that time was spent coordinating care, reviewing notes, imaging and laboratory results as well as discussion of the pathophysiologyof disease process, diagnostic studies and prognosis of the diagnosed condition. All pertinent questions were answered to patient's satisfaction during this clinical visit. Patient is to closely follow with primary physician for the medical needs. Thank you for involving me in Wily Bahena's care Rosa Chow MD PhD documented in this encounter Plan of Treatment Scheduled Orders Name Type Priority Associated Diagnoses Orde r Schedule VITAMIN B12 FOLATE PANEL Lab Routine Numbness Ordered: 06/04/2018 IMMUNOFIXATION Lab Routine Numbness Ordered: 06/04/2018 PROTEIN ELECTROPHORESIS BLOOD Lab Routine Numbness Ordered: 06/04/2018 documented as of this encounter Visit Diagnoses Diagnosis Postconcussion syndrome- Primary Numbness Disturbance of skin sensation Benign essential tremor Essential and other specified forms of tremor documented in this encounter Care Teams Human Resources Benefits Administrator Relationship Specialty Start Date End Date Suman Monique DO PCP - General 04/20/18 01/30/21 documented as of this encounter
--- OUTSIDE RECORDS SUMMARY | 2024-09-03 07:51 | XMS_ITS | Encounter Summary ---
Author Organization [facility] Address [address] [place] [address] Care Team Providers Care Legislative Advocate Name Role Phone Unavailable Primary Care Provider Unavailabl e Reason for Referral * Neurology (Routine) - Closed Specialty Diagnoses / Procedures Referred By Jonah weber Referred To Contact Neurology Diagnoses Postconcussion syndrome Memory [place] [address] [place] [phone] Referral ID Status Reason Start Date Expiration Date Visits Re quested Visits Authorized [id number] Closed 06/24/2017 12/21/2017 1 1 Reason for Visit * Neurology (Routine) - Closed Specialty Diagnoses / Procedures Referred By Jonah weber Referred To Contact Neurology Diagnoses Postconcussion syndrome Memory [place] [address] [place] [id number] Referral ID Status Reason Start Date Expiration Date Visits Re quested Visits Authorized [id number] Closed 06/24/2017 12/21/2017 1 1 Encounter Details Date Type Department Care Team (Latest Contact Info) Description 06/25/2017 9:00 AM CDT - 06/25/2017 11:59 PM CDT Hospital Encounter [facility] - Electrophysiology [address] [place] [address] [place] [address] [place] [address] Discharge Disposition: Home or Self Care [...] needed for Headache 30 capsule 3 06/24/2017 meclizine (ANTIVERT) 25 MG tablet Take 25 mg by mouth 3 times daily as needed 0 06/09/2017 Multiple Vitamin (MULTI VITAMIN DAILY PO)Indications:Centrium Silver 50+ Take 1 tablet by mouth once daily Reasons: Centrium Silver 50+ sertraline (ZOLOFT) 100 MG tablet Take 150 mg by mouth once daily testosterone cypionate (DEPO-TESTOTERONE) 200 MG/ML injection Inject 1 mL into muscle every 14 days 5 06/09/2017 benzonatate (TESSALON) 100 MG capsuleIndications:Acut e URI Take 1 Cap by mouth 3 times daily as needed for Cough 20 Cap 10/26/2016 09/03/2017 nortriptyline (PAMELOR) 10 MG capsuleIndications:Post concussion syndrome Take 3 capsules by mouth at bedtime 90 capsule 3 06/24/2017 09/03/2017 VYVANSE 50 MG capsule Take 50 mg by mouth once daily 0 06/03/2017 12/02/2017 documented as of this encounter Procedure Notes * Dread Ayala MD - 06/25/2017 11:59 PM CDTAssociated Order(s): EEG [facility] ELECTROENCEPHALOGRAPHIC REPORT PATIENT: WILY BAHENA MR#: [id number] DATE OF SERVICE: 06/25/2017 CSN: [id number] : 1955 ROOM: REFERRING PHYSICIAN: DREAD AYALA MD ADMIT DATE: 06/25/2017 EEG was ordered for altered mentation. EEG was recorded in standard multichannel format utilizing the 10/20 system of electrode placement. Bipolar and referential montages were used for review. The quality of the recording is good. The background consists of up to 11 Hz alpha range activity, low amplitude, with a posterior dominant rhythm. The record is continuous and symmetric, with good variability and reactivity. No epileptiform activity is seen. No other focal or lateralizing abnormalities are seen. During recording, the patient was found to be asleep with vertex waves, spindles, and K complexes. IMPRESSION: This is a normal EEG with the patient being awake and asleep. No seizure activity was seen. Clinical correlation. DREAD AYALA MD XL/MODL #: [id number] ELECTROENCEPHALOGRAPHIC REPORT - DP * Chito Ann - 06/25/2017 9:45 AM CDT Performed outpatient EEG procedure. documented in this encounter Plan of Treatment Not on file documented as of this encounter Procedures Procedure Name Priority Date/Time Associated Diagnosis Comments EEG Routine 06/25/2017 12:00 PM CDT Postconcussion syndrome Memory loss documented in this encounter Results * EEG (06/25/2017 12:00 PM CDT) 06/25/2017 12:0 0 PM CDT Narrative Procedure Note Dread Ayala MD - 06/25/2017 11:59 PM CDT [facility] ELECTROENCEPHALOGRAPHIC REPORT PATIENT: WILY BAHENA MR#: [id number] DATE OF SERVICE: 06/25/2017 CSN: [id number] : 1955 ROOM: REFERRING PHYSICIAN: DREAD AYALA [...] Clinical correlation. DREAD AYALA MD XL/MODL #: [id number] ELECTROENCEPHALOGRAPHIC REPORT - DP Dread Ayala MD NEUROLOGY ORDERABLES Performing Organization Address City/State/[facility] Co de Phone Number [facility] documented in this encounter Visit Diagnoses Diagnosis Postconcussion syndrome Memory loss documented in this encounter
--- OUTSIDE RECORDS SUMMARY | 2024-09-03 07:51 | XMS_ITS | Encounter Summary ---
Author Organization [facility] Address [address] [facility] [place] [address] Care Team Providers Care Digital Circuit Designer Name Role Phone Unavailable Primary Care Provider Unavailabl e Reason for Visit * Reason Onset Date Comments Results 12/25/2017 CT Head Encounter Details Date Type Department Care Team (Late st Contact Info) Description 12/25/2017 Telephone [facility] [employer] [facility] [address] [facility] [address] [place] [phone] [place] [address] [phone] Results (CT Head) Social History Tobacco Use Types Packs/Day Years [...] Encounter - Maria Del Carmen Martines - 01/21/2018 12:46 PM CDT Faxed MRI report to have Dr. Angeles look at. * Telephone Encounter - Rosa Chow MD - 12/28/2017 10:10 AM CDT Doubt that is the reason. Maria Del Carmen pld have Dr. Angeles The radiologist whole read the CT brain To comment on the right greater wing of the sphenoid sinus. Please fax MRI reports to him if needed. * Telephone Encounter - Maria Del Carmen Martines - 12/25/2017 5:38 PM CDT Called spoke with patient's Nayana and informed her per Dr. Chow that the CT results were normal. Patient verbalized understanding and wanted to know if this was caused by his fall. Please advise. documented in this encounter Plan of Treatment Not on file documented as of this encounter Visit Diagnoses Not on filedocumented in this encounter
--- OUTSIDE RECORDS SUMMARY | 2024-09-03 07:51 | XMS_ITS | Encounter Summary ---
Author Organization [facility] Address [address] [facility] [place] [address] Care Team Providers Care Propagator Laborer Name Role Phone Unavailable Primary Care Provider Unavailabl e Reason for Visit * Reason Onset Date Comments General 07/31/2017 Encounter Details Date Type Department Care Team (Late st Contact Info) Description 07/31/2017 Telephone [facility] [facility] [address] [phone] [place] [address] [phone] General Social History Tobacco Use Types Packs/Day Years [...] Encounter - Maria Del Carmen Martines - 08/12/2017 10:51 AM CST Mailed out last 2 OV notes to address on file. R RECRUITMENT MANAGER * Telephone Encounter - Hilda Sr - 08/05/2017 9:20 AM CST Nayana called and requested the MyChart Activation form, I faxed to [phone]. I talked to Maria Del Carmen keller is to mail the medical records to the patient. R RECRUITMENT MANAGER * Telephone Encounter - Reina Chase - 07/31/2017 10:14 AM CST Patients is calling to request husbands records so her daughter could look over them. She stated that she she wanted to results from the 3 ct scans he did and the office notes from dr salamanca and whatever else we had on her 's condition. Stated he is not getting better but her daughter is a nurse and wanted to look over his stuff. stated her fax number is [phone] R RECRUITMENT MANAGER documented in this encounter Plan of Treatment Not on file documented as of this encounter Visit Diagnoses Not on filedocumented in this encounter
--- OUTSIDE RECORDS SUMMARY | 2024-09-03 07:51 | XMS_ITS | Encounter Summary ---
Author Organization [facility] Address [address] [place] [address] Care Team Providers Care Director Of Retail Analytics Name Role Phone Unavailable Primary Care Provider Unavailabl e Reason for Visit * Reason Onset Date Comments Letter 10/12/2017 Encounter Details Date Type Department Care Team (Late st Contact Info) Description 10/12/2017 Telephone [facility] [employer] [facility] [address] [phone] [place] [address] [phone] Letter Social History Tobacco Use Types Packs/Day [...] Encounter - Maria Del Carmen Martines - 10/21/2017 5:31 PM CST Spoke with regarding the letter needed for patients employer. Pt's would like the paperwork faxed to her at [phone]. Faxed the letter to Nayana today. SOFTWARE DEVELOPER * Telephone Encounter - Maria Del Carmen Martines - 10/12/2017 10:13 AM CST Called patient and spoke with about MRI C-spine results. 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 Informed of results and she verbalized understanding. said that he has an apt with Dr. Ibanez on 11/12/17 regarding his neck. wanted to know if Dr. Chow could write a letter stating why the patient is not able to work right now because STD denied him. Informed I will speak with Dr. Chow and keep in touch with her. SOFTWARE DEVELOPER documented in this encounter Plan of Treatment Not on file documented as of this encounter Visit Diagnoses Not on filedocumented in this encounter
--- OUTSIDE RECORDS SUMMARY | 2024-09-03 07:51 | XMS_ITS | Encounter Summary ---
Author Organization [facility] Address [address] [place] [address]. [place] [address] [place] [address] Care Team Providers Care Ingot Header Name Role Phone Johnathon Braga Primary Care Provider + Encounter Details Date Type Department Care Team (Latest Contact Info) Description 07/22/2024 Travel Social History Tobacco Use Types Packs/Day Years Used Date Smoking Tobacco: Never Smokeless Tobacco: Never Comments:na Alcohol Use Standard Drinks/Week Comments Never [...] on file Legal Sex Male 11:26 AM BEAMING INSPECTOR Gender Identity Not on file Sexual Orientation Not on file documented as of this encounter Plan of Treatment Upcoming Encounters Date Type Department Care Team (Late st Contact Info) Description 09/10/2024 11:30 AM BEAMING INSPECTOR Appointment [facility] [address] [place] [address] Zay Juárez MD [address] [place] [phone] 10/25/2024 9:20 AM BEAMING INSPECTOR Office Visit [facility] Family & Internal Medicine [address] [phone] Johnathon Braga DO [address] [place] [address] 11/21/2024 9:40 AM CDT Office Visit [facility] Multispecialty Care - [facility] [address] [facility], [address] [place] [address] Shelli Gonzalez MD [address] [place] [address] documented as of this encounter Visit Diagnoses Not on filedocumented in this encounter Additional Health Concerns Assessment Noted Time PHQ-9 Depression Total Score: 4 07/20/20 23 11:48 AM BEAMING INSPECTOR documented as of this encounter Care Teams Ingot Header Relationship Specialty Start Date End Date Johnathon Braga DO [address] [place] [address] PCP - General FAMILY PRACTICE 10/31/20 documented as of this encounter
--- OUTSIDE RECORDS SUMMARY | 2024-09-03 07:51 | XMS_ITS | Encounter Summary ---
Author Organization [facility] Address [address] [place] [address]. [place], [place] [id number] [place] [id number] Care Team Providers Care Talent Acquisition Associate Name Role Phone Johnathon Braga DO Primary Care Provider + Reason for Referral * Consultation (Routine) - Authorized Specialty Diagnoses / Procedures Referred By Contac t Referred To Contact GASTROENTEROLOGY Diagnoses Diarrhea, unspecified type Johnathon Braga DO [address] [place] [address] Phone: tel: fax: Luis Antonio Torres MD [address] [facility] [address] [place] [id number] Phone: tel: fax: Referral ID Status Reason Start Date Expiration Date V isits Requested Visits Authorized [id number] Authorized 07/22/2024 07/22/2025 99 99 [employer] Reason for Visit * Reason Comments Diabetes 3 month follow up Encounter Details Date Type Department Care Team (Late st Contact Info) Description 07/22/2024 11:20 AM [employer] Office Visit [facility] - [place] [address] [place] [address] Johnathon Braga DO [address] [place] [address] Diabetes (3 month follow up ) Social History Tobacco Use Types Packs/Day Years [...] on file Legal Sex Male 11:26 AM [employer]IGH [employer] Gender Identity Not on file Sexual Orientation Not on file documented as of this encounter Last Filed Vital Signs Vital Sign Reading Time Taken Comments Blood Pressure 116/64 07/22/2024 11:33 AM [employer] Pulse 61 07/22/2024 11:33 AM [employer] Temperature 36.9 ??C (98.4 ??F) 07/22/2024 11:[address] Respiratory Rate 16 07/22/2024 11:33 AM [employer] Oxygen Saturation 96% 07/22/2024 11:33 AM [employer] Inhaled Oxygen Concentration - - Weight 103 kg (227 lb) 07/22/2024 11:33 AM [employer] Height 180.3 cm (5' 11 ) 07/22/2024 11:33 AM H[employer] Body Mass Index 31.66 07/22/2024 11:33 AM H[employer] documented in this encounter Progress Notes * Tonia Mireles MA - 07/22/2024 11:20 AM CST 1. Are you allergic to eggs, chicken or chicken feathers? No 2. Do you currently have an illness or fever? No 3. Have you ever had an allergic reaction to the influenza vaccine? No 4. Do you have Guillain-Irvine Syndrome? No Flu vaccine administered in Right Deltoid. No flashback seen and no adverse reactions were observedwhile the patient was in the clinic. Pt left clinic in no acute distress. Verified by: tll. S[employer] ENGLISH TE[employer]ER * Johnathon Braga DO - 07/22/2024 11:20 AM CST Images from the original note were not included. GENERAL OFFICE VISIT Encounter Date: 07/22/2024 Chief Complaint: 68-year-old male presents for Diabetes (3 month follow up ) HPI: Patient presents for follow-up on HLD. Patient has had HLD for multiple years. Current medications include atorvastatin. Current side effects include none. Patient does not need labs drawn today. Pt had recent lab draw. They were mostly stable. Patient has Type 2 Diabetes. Patient has had diabetes for about 1 year. Medications include glipizide; he had diarrhea with metformin. BS logs range: stable. Patient's weight has not changed. Currentsymptoms include none. HGB A1C Date Value Ref Range Status 04/20/2024 5.9 % Final 11/16/2023 7.0 % Final 06/08/2023 5.8 % Final 02/23/2023 6.3 (H) <5.7 % of total Hgb Final Comment: For someone without known diabetes, a hemoglobin A1c value between 5.7% and 6.4% is consistent with prediabetes and should be confirmed with a follow-up test. For someone with known diabetes, a value <7% indicates that their diabetes is well controlled. A1c targets should be individualized based on duration of diabetes, age, comorbid conditions, and other considerations. This assay result is consistent with an increased risk of diabetes. Currently, no consensus exists regarding use of hemoglobin A1c for diagnosis of diabetes for children. HEMOGLOBIN A1C Date Value Ref Range Status 07/02/2023 6.1 (H) <=5.6 % Final MICROALBUMIN (U) Date Value Ref Range Status 07/14/2024 1.1 See Note: mg/dL Final Comment: Reference Range: Reference Range Not established Pt has a new CPAP mask for one day and has been adequate on this. He is not wanting to do the stool testing for diarrhea. He is okay with a GI referral. Patient presents for follow-up on essential hypertension. Patient has had hypertension for multipleyears. Current medications include Chlorthalidone and Propranolol LA . Patient's blood pressure is well controlled at this time. No side effects noted from medications. Concurrent conditions include Diabetes Mellitus and Hyperlipidemia. Review of Systems Constitutional: Negative for fever. Respiratory: Negative for shortness of breath. Cardiovascular: Negative for chest pain. Gastrointestinal: See HPI Psychiatric/Behavioral: Sees psych Patient Active Problem List Diagnosis Benign essential tremor Calculus of kidney Convergence insufficiency Dizziness Fatigue Hypertension Idiopathic gout Postconcussion syndrome Post-traumatic headache, not intractable Syncope Visual disturbance Irritability and anger Hypogonadism in male Lesion of ulnar nerve Prediabetes Cubital tunnel syndrome on left Marital relationship problem Moderate episode of recurrent major depressive disorder ([facility]) Paraphilia, unspecified Severe recurrent major depression without psychotic features ([facility]) Sexual behavior disorder Cataract of both eyes, unspecified cataract type ROSEMARIE (obstructive sleep apnea) Hypersexuality Umbilical hernia without obstruction or gangrene Past Medical History: Diagnosis Date Closed fibular fracture 04/20/2024 Dementia ([facility]) Diabetes mellitus ([facility]) Excessive anger Gout Hypertension Kidney stone Loss of hearing Numbness Post-concussional syndrome Tremor Past Surgical History: Procedure Laterality Date ANESTH,CERV SPINE,CORD SURGERY C3-7 HERNIA REPAIR 1971 LITHOTRIPSY UMBILICAL HERNIA REPAIR 04/21/2024 Family History Problem Relation Name Age of Onset Cancer Mother Liver Disease Father No Known Problems Sister Prostate Cancer Brother Social History Socioeconomic History Marital status: Spouse name: Not on file Number of children: Not on file Years of education: Not on file Highest education level: Not on file Occupational History Not on file Tobacco Use Smoking status: Never Smokeless tobacco: Never Tobacco comments: na Vaping Use Vaping status: Never Used Substance and Sexual Activity Alcohol use: Never Drug use: Never Sexual activity: Not on file Other Topics Concern Not on file Social History Narrative Not on file Social Drivers of Health Financial Resource Strain: Not on file Food Insecurity: No Food Insecurity (07/15/2023) Received from [place] [place] [facility] Food Insecurity Social/Environmental Concerns: No concerns Transportation Needs: No Transportation Needs (07/15/2023) Received from [place] [place] [facility] Transportation Needs Social/Environmental Concerns: No concerns Physical Activity: Not on file Stress: Not on file Social Connections: Not on file Intimate Partner Violence: Not At Risk (07/02/2023) Received from [place] [place] [facility] Intimate Partner Violence Are you in a relationship with someone who hurts you emotionally and/or physically?: No Housing Stability: Low Risk (07/15/2023) Received from [place] [place] [facility] Housing Stability Social/Environmental Concerns: No concerns Immunization History Administered Date(s) Administered Fluzone High Dose (IIV, trivalent, 0.5mL) 07/22/2024 Fluzone High Dose - >Age 65 (Prefilled Syringe) 07/09/2023 [employer]-sensing (Hiptype) COVID-19 AD26 VACCINE 0.5 ML IM SUSP 11/22/2020 Pneumococcal (Prevnar 20) 07/22/2024 Td 05/04/2008 Tdap (Generic) 06/04/2021 Current Outpatient Medications Medication Sig Dispense Refill allopurinol (ZYLOPRIM) 300 MG tablet Take 1 tablet by mouth once daily 90 tablet 0 Alpha-Lipoic Acid 600 MG Tab Take 1 tablet by mouth daily. atorvastatin (LIPITOR) 10 MG tablet take 1 tablet by mouth nightly at bedtime 90 tablet 0 cephALEXin (KEFLEX) 500 MG capsule Take 1 capsule (500 mg total) by mouth 2 (two) times daily. 14 capsule 0 chlorthalidone (HYGROTEN) 25 MG tablet Take 1 tablet by mouth once daily 90 tablet 0 Cyanocobalamin (VITAMIN B-12) 50 MCG Tab Take 50 mcg by mouth once. donepezil (ARICEPT) 10 MG Tab Take 1 tablet (10 mg total) by mouth daily. 90 tablet 3 fish oil 1000 MG Cap capsule Take by mouth 2 (two) times daily. gabapentin (NEURONTIN) 600 MG tablet take 1 tablet by mouth three times daily 270 tablet 0 glipiZIDE XL (GLUCOTROL XL) 5 MG 24 hr tablet TAKE 1 TABLET BY MOUTH ONCE DAILY WITH BREAKFAST DO NOT BREAK OR CRUSH TABLET 30 tablet 2 Glucose Blood (ACCU-CHEK GUIDE) test strip 1 strip by Other route as needed. Use once daily in the AM while fasting. 100 strip 1 Glucose Blood (ACCU-CHEK GUIDE) test strip 1 strip by Other route every morning before breakfast. Use as instructed 50 strip 2 Glucose Blood ([employer] GLUCOSE METER TEST STRIPS) test strip 1 strip by Other route as needed. Use as instructed. Generic brand. 100 strip 3 hydrOXYzine 50 MG tablet Take by mouth every 8 (eight) hours as needed. lamoTRIgine 100 MG tablet Take 1 tablet (100 mg total) by mouth 2 (two) times daily. Lancets Misc 1 Lancet by Does not apply route daily as needed. Once daily. Use accu-check brand. 100 each 10 meclizine (ANTIVERT) 25 MG tablet Take 1 tablet (25 mg total) by mouth daily as needed. (Patient taking differently: Take 1 tablet (25 mg total) by mouth 3 (three) times daily as needed.) 30 tablet 0 Multiple Vitamins-Minerals (CENTRUM ADULTS OR) Take 1 tablet by mouth daily. PARoxetine (PAXIL) 40 MG tablet Take 1 tablet (40 mg total) by mouth every morning. propranolol LA (INDERAL LA) 60 MG 24 hr capsule Take 1 capsule (60 mg total) by mouth daily. 30 capsule 11 QUEtiapine (SEROQUEL) 25 MG tablet Take 0.5 tablets (12.5 mg total) by mouth daily. tamsulosin 0.4 MG Cap Take 1 capsule (0.4 mg total) by mouth daily. testosterone cypionate 200 MG/ML injection Inject 1 mL (200 mg total) into the muscle every 21 days. vitamin D3, cholecalciferol, 1000 UNIT Tab tablet Take 2 tablets (2,000 Units total) by mouth daily. Blood Glucose Monitoring Suppl (D-CARE GLUCOMETER) w/Device Kit 1 Device by Does not apply route once for 1 dose. Accu-check brand 1 kit 0 No current facility-administered medications for this visit. Current Outpatient Medications on File Prior to Visit Medication Sig allopurinol (ZYLOPRIM) 300 MG tablet Take 1 tablet by mouth once daily Alpha-Lipoic Acid 600 MG Tab Take 1 tablet by mouth daily. atorvastatin (LIPITOR) 10 MG tablet take 1 tablet by mouth nightly at bedtime cephALEXin (KEFLEX) 500 MG capsule Take 1 capsule (500 mg total) by mouth 2 (two) times daily. chlorthalidone (HYGROTEN) 25 MG tablet Take 1 tablet by mouth once daily Cyanocobalamin (VITAMIN B-12) 50 MCG Tab Take 50 mcg by mouth once. donepezil (ARICEPT) 10 MG Tab Take 1 tablet (10 mg total) by mouth daily. fish oil 1000 MG Cap capsule Take by mouth 2 (two) times daily. gabapentin (NEURONTIN) 600 MG tablet take 1 tablet by mouth three times daily glipiZIDE XL (GLUCOTROL XL) 5 MG 24 hr tablet TAKE 1 TABLET BY MOUTH ONCE DAILY WITH BREAKFAST DO NOT BREAK OR CRUSH TABLET Glucose Blood (ACCU-CHEK GUIDE) test strip 1 strip by Other route as needed. Use once daily in the AM while fasting. Glucose Blood (ACCU-CHEK GUIDE) test strip 1 strip by Other route every morning before breakfast. Use as instructed Glucose Blood ([employer] GLUCOSE METER TEST STRIPS) test strip 1 strip by Other route as needed. Use as instructed. Generic brand. hydrOXYzine 50 MG tablet Take by mouth every 8 (eight) hours as needed. lamoTRIgine 100 MG tablet Take 1 tablet (100 mg total) by mouth 2 (two) times daily. Lancets Misc 1 Lancet by Does not apply route daily as needed. Once daily. Use accu-check brand. meclizine (ANTIVERT) 25 MG tablet Take 1 tablet (25 mg total) by mouth daily as needed. (Patient taking differently: Take 1 tablet (25 mg total) by mouth 3 (three) times daily as needed.) Multiple Vitamins-Minerals (CENTRUM ADULTS OR) Take 1 tablet by mouth daily. PARoxetine (PAXIL) 40 MG tablet Take 1 tablet (40 mg total) by mouth every morning. propranolol LA (INDERAL LA) 60 MG 24 hr capsule Take 1 capsule (60 mg total) by mouth daily. QUEtiapine (SEROQUEL) 25 MG tablet Take 0.5 tablets (12.5 mg total) by mouth daily. tamsulosin 0.4 MG Cap Take 1 capsule (0.4 mg total) by mouth daily. testosterone cypionate 200 MG/ML injection Inject 1 mL (200 mg total) into the muscle every 21 days. vitamin D3, cholecalciferol, 1000 UNIT Tab tablet Take 2 tablets (2,000 Units total) by mouth daily. Blood Glucose Monitoring Suppl (D-CARE GLUCOMETER) w/Device Kit 1 Device by Does not apply route once for 1 dose. Accu-check brand No current facility-administered medications on file prior to visit. Review of patient's allergies indicates: Allergen Reactions Carbamazepine Rash and Swelling Objective: Filed Vitals: 07/22/24 1133 BP: 116/64 Pulse: 61 Resp: 16 Temp: 98.4 ??F (36.9 ??C) TempSrc: Skin SpO2: 96% Weight: 103 kg (227 lb) Height: 1.803 m (5' 11 ) Physical Exam Vitals and nursing note reviewed. Constitutional: Appearance: He is obese. HENT: Head: Normocephalic and atraumatic. Right Ear: External ear normal. Left Ear: External ear normal. Eyes: General: No scleral icterus. Conjunctiva/sclera: Conjunctivae normal. Cardiovascular: Rate and Rhythm: Normal rate and regular rhythm. Heart sounds: Normal heart sounds. Pulmonary: Effort: Pulmonary effort is normal. Breath sounds: Normal breath sounds. Abdominal: Palpations: Abdomen is soft. Tenderness: There is no abdominal tenderness. Skin: General: Skin is warm and dry. Findings: No rash. Neurological: Mental Status: He is alert. Mental status is at baseline. Psychiatric: Mood and Affect: Affect normal. Assessment & Plan: Wily was seen today for diabetes. Diagnoses and all orders for this visit: Type 2 diabetes mellitus without complication, without long-term current use of insulin ([facility]) - HEMOGLOBIN, GLYCOSYLATED - COLLECT.CAPILLARY (FNGR,HEEL,EAR) Essential hypertension Hyperlipidemia, unspecified hyperlipidemia type Diarrhea, unspecified type - Ambulatory referral to Gastroenterology (OTHER) Need for prophylactic vaccination against Streptococcus pneumoniae (pneumococcus) - [65922] Prevnar 20 (Pneumococcal) Need for immunization against influenza - [26336] Flu Vaccine, Split Virus, High Dose 65+ Years Discussion/Summary: Continue current meds as prescribed for T2DM, HLD, and HTN as well as lifestyle changes; stable again today. Will refer to GI. Repeat annual labs in 1 year. Will give flu shot and Prevnar 20 vaccinestoday. Will have pt f/u in 3 months or sooner if needed. Pt v/u. Johnathon Braga DO [employer] documented in this encounter Plan of Treatment Upcoming Encounters Date Type Department Care Team (Late st Contact Info) Description 09/10/2024 11:30 AM [employer] Appointment [facility] [address] [place] [address] [place]ay [place] [address] [address] 10/25/2024 9:20 AM [employer] Office Visit [facility] Family & Internal Medicine - [address] [phone] Johnathon Braga DO [address] [place] [address] 11/21/2024 9:40 AM CDT Office Visit [facility] - [facility] [address] [facility], [address] [place] [id number] Shelli Gonzalez MD [address] [place] [address] Scheduled Referrals Name Type Priority Associated Diagnoses Orde r Schedule Ambulatory referral to Gastroenterology (OTHER) Referral Routine Diarrhea, unspecified type Ordered: 07/22/2024 documented as of this encounter Procedures Procedure Name Priority Date/Time Associated Diagnosis Comments COLLECT.CAPILLARY (FNGR,HEEL,EAR) Routine 07/22/2024 11:43 AM [employer] Type 2 diabetes mellitus without complication, without long-term current use of insulin ([facility]) HEMOGLOBIN, GLYCOSYLATED Routine 07/22/2024 Type 2 diabetes mellitus without complication, without long-term current use of insulin ([facility]) documented in this encounter Results * HEMOGLOBIN, GLYCOSYLATED (07/22/2024) HGB A1C 6.1 % [facility] 07/22/2024 us Johnathon Braga DO LABORATORY Final Re sult [facility] [address] [place] [address], documented in this encounter Visit Diagnoses Diagnosis Type 2 diabetes mellitus without complication, without long-term current use of insulin ([facility])- Primary Essential hypertension Unspecified essential hypertension Hyperlipidemia, unspecified hyperlipidemia type Diarrhea, unspecified type Need for prophylactic vaccination against Streptococcus pneumoniae (pneumococcus) Need for prophylactic vaccination against streptococcus pneumoniae (pneumococcus) Need for immunization against influenza Need for prophylactic vaccination and inoculation against influenza documented in this encounter Additional Health Concerns Assessment Noted Time PHQ-9 Depression Total Score: 4 07/20/20 23 11:48 AM [employer] documented as of this encounter Care Teams Talent Acquisition Associate Relationship Specialty Start Date End Date Johnathon Braga DO [address] [place] [id number] PCP - General FAMILY PRACTICE 10/31/20 documented as of this encounter
--- OUTSIDE RECORDS SUMMARY | 2024-09-03 07:51 | XMS_ITS | Encounter Summary ---
Author Organization [facility] Address [address] [place] [address] Care Team Providers Care Magazine Filler Name Role Phone Unavailable Primary Care Provider Unavailabl e Reason for Visit * Reason Comments Sore Throat Fever Cough Congestion runny nose Encounter Details Date Type Department Care Team (Late st Contact Info) Description 03/06/2017 9:40 AM CDT Office Visit [facility] AT [address] [phone] Provider, [facility] Acute maxillary sinusitis, recurrence not specified (Primary Dx); Acute pharyngitis, unspecified etiology; Other acute nonsuppurative otitis media of left ear, recurrence not specified Social History Tobacco Use Types Packs/Day Years Used Date Smoking Tobacco: Never Smokeless Tobacco: Never Sex and Gender Information Value Date Recorded Sex Assigned at Not on file Gender Identity Not on file Sexual Orientation Not on file documented as of this encounter Last Filed Vital Signs Vital Sign Reading Time Taken Comments Blood Pressure 134/70 03/06/2017 9:41 AM CDT Pulse 75 03/06/2017 9:41 AM CDT Temperature 36.9 ??C (98.5 ??F) 03/06/2017 9:41 AM CD T Respiratory Rate 16 03/06/2017 9:41 AM CDT Oxygen Saturation 97% 03/06/2017 9:41 AM CDT Inhaled Oxygen Concentration - - Weight 95.3 kg (210 lb) 03/06/2017 9:41 AM CDT Height 180.3 cm (5' 11 ) 03/06/2017 9:41 AM CDT Body Mass Index 29.29 03/06/2017 9:41 AM CDT documented in this encounter Patient Instructions * Patient Instructions* Levi Nix APRN-CNP - 03/06/2017 10:02 AM CDT Drink plenty of fluids Get plenty of rest Cool mist humidifier Elevate head of bed Tylenol or Ibuprofen per package direction for discomfort\fever (if not allergic) documented in this encounter Progress Notes * Levi Nix APRN-CNP - 03/06/2017 10:00 AM CDT History Wily Bahena is a 61 y.o. male who presents to the clinic with Chief Complaint Patient presents with ??? Sore Throat ??? Fever ??? Cough ??? Congestion runny nose . Primary Care Physician is Suman Monique DO. He reports the following symptoms: sinus and nasal congestion, sore throat, nasal blockage, fever and dry cough. Onset was 1 week ago. The Clinical course has been gradually worsening. Patient is drinking plenty of fluids.. Past Medical History: Diagnosis Date ??? Depression ??? Gout ??? Kidney stones No family history on file. Current Outpatient Prescriptions Medication Sig Dispense Refill ??? amoxicillin-clavulanate (AUGMENTIN) 875-125 MG tablet Take 1 Tab by mouth 2 times daily with morning and evening meal for 10 days 20 Tab 0 ??? allopurinol (ZYLOPRIM) 300 MG tablet Take 300 mg by mouth once daily ??? aMILoride-hydroCHLOROthiazide (MODURETIC) 5-50 MG tablet Take 1 Tab by mouth once daily ??? sertraline (ZOLOFT) 100 MG tablet Take 100 mg by mouth once daily ??? benzonatate (TESSALON) 100 MG capsule Take 1 Cap by mouth 3 times daily as needed for Cough 20 Cap 0 No current facility-administered medications for this visit. No Known Allergies Social History Social History ??? Marital status: Spouse name: N/A ??? Number of children: N/A ??? Years of education: N/A Occupational History ??? Not on file. Social History Main Topics ??? Smoking status: Never Smoker ??? Smokeless tobacco: Never Used ??? Alcohol use Not on file ??? Drug use: Not on file ??? Sexual activity: Not on file Other Topics Concern ??? Not on file Social History Narrative Review of Systems Pertinent items are noted in HPI Objective: BP 134/70 (BP SITE: LEFT ARM, BP POSITION: SITTING, BP CUFF SIZE: Adult) Pulse 75 Temp 98.5 ??F (Oral) Resp 16 Ht 1.803 m (5' 11 ) Wt 95.3 kg (210 lb) SpO2 97% BMI 29.29 kg/m2 General appearance: alert, cooperative, no distress Ears: Left tympanic membrane - erythematous and bulging Nose: nares open; no septal deviation is noted, mucosa erythematous and swollen, purulent rhinorrhea, maxillary tenderness bilaterally Throat: no mucous membrane abnormalities, mild oropharyngeal erythema Lungs: breath sounds normal and symmetric; no rales or wheezes Heart: regular rhythm, normal S1 and S2, without murmurs, gallops or rubs Assessment: Encounter Diagnoses Name Primary? Acute pharyngitis, unspecified etiology ??? Acute maxillary sinusitis, recurrence not specified Yes ??? Other acute nonsuppurative otitis media of left ear, recurrence not specified Plan: See orders, medications and patient instructions. Use of OTC analgesics recommended as well as salt water gargles. Follow up PRN. Drink plenty of fluids Get plenty of rest Cool mist humidifier Elevate head of bed Tylenol or Ibuprofen per package direction for discomfort\fever (if not allergic) Orders Placed This Encounter ??? STREP A SCREEN ??? amoxicillin-clavulanate (AUGMENTIN) 875-125 MG tablet Sig: Take 1 Tab by mouth 2 times daily with morning and evening meal for 10 days Dispense: 20 Tab Refill: 0 Recent Results (from the past 24 hour(s)) STREP A SCREEN Collection Time: 03/06/17 12:00 AM Result Value Ref Range Strep A Rapid Negative Negative Strep A INTERNAL CONTROL Present Lot Number [id number] Expiration Date [id number] documented in this encounter Plan of Treatment Not on file documented as of this encounter Procedures Procedure Name Priority Date/Time Associated Diagnosis Comments STREP A SCREEN - POINT OF CARE (AMB) STL Routine 03/06/2017 Acute pharyngitis, unspecified etiology documented in this encounter Results * STREP A SCREEN (03/06/2017) Strep A Rapid POCT Negative Negative Strep A Internal Control Present Lot # [id number] Expiration Date 40410922 Throat ENTIRE THROAT (SURFACE REGION OF NECK) / Unknown 03/06/2017 Levi Nix [employer]SEMBLER [employer] [facility] - POINT OF CARE ORDERABLES documented in this encounter Visit Diagnoses Diagnosis Acute maxillary sinusitis, recurrence not specified- Primary Acute pharyngitis, unspecified etiology Other acute nonsuppurative otitis media of left ear, recurrence not specified documented in this encounter
--- OUTSIDE RECORDS SUMMARY | 2024-09-03 07:51 | XMS_ITS | Encounter Summary ---
Author Organization [facility] Address [address] [place] [address] Care Team Providers Care Loan Interviewer Mortgage Name Role Phone Unavailable Primary Care Provider Unavailabl e Reason for Visit * Reason Comments Follow-up Encounter Details Date Type Department Care Team (Latest Contact Info) Description 09/03/2017 3:40 PM BOOTH OPERATOR Office Visit [facility] Neurosciences [address] [facility] [address] [place] [phone] [place] [address] [address] Postconcussion syndrome (Primary Dx) Social History Tobacco Use Types [...] Sign Reading Time Taken Comments Blood Pressure 134/62 09/03/2017 4:05 PM BOOTH OPERATOR Pulse 88 09/03/2017 4:05 PM BOOTH OPERATOR Temperature - - Respiratory Rate 16 09/03/2017 4:05 PM BOOTH OPERATOR Oxygen Saturation - - Inhaled Oxygen Concentration - - Weight 91.6 kg (202 lb) 09/03/2017 4:05 PM BOOTH OPERATOR Height 180.3 cm (5' 11 ) 09/03/2017 4:05 PM BOOTH OPERATOR Body Mass Index 28.17 09/03/2017 4:05 PM BOOTH OPERATOR documented in this encounter Progress Notes * Rosa Chow MD - 09/03/2017 4:10 PM CST 09/03/2017 Wily Bahena 61 y.o. Referring Physician: Dr. Suman Monique DO MD Chief Complaint: Chief Complaint Patient presents with ??? Follow-up HPI: Wily vega 61 y.o. came for follow up of headache when he fell backward hitting his head with a laceration. No more severe falls. He had a near-fall. The headache is on the frontal area, up to 3-9/10, aching pain without nausea, light and sound sensitivity. He refused to come to ER. He had some memory loss. He still had dizziness with lightheadedness and blurry vision. The patient denies weakness, numbness, double-vision, slurred speech, incontinence of bowel bladder. He had some shoulder pain and neck pain, and he is to get MR c spine tomorrow. He had no back pain. There is no seizure-like events, no tongue biting. He is applying for disability. Past Medical History: Diagnosis Date ??? Depression ??? Gout ??? Kidney stones Past Surgical History: Procedure Laterality Date ??? Hernia Repair 1973 Current Outpatient Prescriptions Medication Sig Dispense Refill ??? VYVANSE 50 MG capsule Take 50 mg by mouth once daily 0 ??? meclizine (ANTIVERT) 25 MG tablet Take 25 mg by mouth 3 times daily as needed 0 ??? testosterone cypionate (DEPO-TESTOTERONE) 200 MG/ML injection Inject 1 mL into muscle every 14 days 5 ??? Multiple Vitamin (MULTI VITAMIN DAILY PO) Take 1 tablet by mouth once daily Reasons: Centrium Silver 50+ ??? nortriptyline (PAMELOR) 10 MG capsule Take 3 capsules by mouth at bedtime 90 capsule 3 ??? 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 Smoking status: [...] Prostate Brother Current Outpatient Prescriptions Medication ??? VYVANSE 50 MG capsule ??? meclizine (ANTIVERT) 25 MG tablet ??? testosterone cypionate (DEPO-TESTOTERONE) 200 MG/ML injection ??? Multiple Vitamin (MULTI VITAMIN DAILY PO) ??? nortriptyline (PAMELOR) 10 MG capsule ??? qqkyzxownf-qqeibjqqmvsdw-cvavlyld (FIORICET) 50-300-40 MG capsule ??? allopurinol (ZYLOPRIM) 300 MG tablet ??? aMILoride-hydroCHLOROthiazide (MODURETIC) 5-50 MG tablet ??? sertraline (ZOLOFT) 100 MG tablet No current facility-administered medications for this visit. EXAMINATION: BP 134/62 (BP SITE: LEFT ARM, BP POSITION: SITTING, BP CUFF SIZE: Adult) Pulse 88 Resp 16 Ht 1.803 m (5' 11 ) Wt 91.6 kg (202 lb) BMI 28.17 kg/m2 General: General appearance: well developed, in [...] tongue midline. Motor: Strength normal bl UEs/LEs. No asterixis, tremor or myoclonus. Normal tone. No atrophy. No Clonus. Sensation: Intact to light touch, temperature. Coordination/Cerebellar: Intact to bchjcd-cloa-kkodgx. Reflex; 2+ bl KJs, Biceps, AJs. Gait: walks heel and toe without difficulty, normal tandem gait and Romberg test. Station: steady. Imaging/Laboratory review: No results for input(s): SODIUM, POTASSIUM, CHLORIDE, CO2, BUN, CREATININE, GLUCOSE, CALCIUM in thelast 02643 hours. No results for input(s): WBC, HGB, HCT, PLTCOUNT in the last 76349 hours. Recent Labs Component Name 07/01/17 1325 TSH 1.04 Recent Labs Component Name 07/01/17 1325 CK 54 No results for input(s): PHENYTOIN in the last 25751 hours. No results for input(s): VPA in the last 12333 hours. No results for input(s): ALBUMIN, ALKPHOS, ALT, AST, TBIL, DBIL, TPROT in the last 19366 hours. No results for input(s): CHOL, TRIG, HDL, LDLCALC, LDLDIRECT in the last 37495 hours. No results for input(s): HGBA1C in the last 71689 hours. No results for input(s): HKWTSFSI01 in the last 73406 hours. No results for input(s): AMMONIA in the last 23229 hours. No results for input(s): JPUFREJKU2IN, JMXEVOIXWP3L, XDNKFQINBV7L, YBZEPQ5SU, DYZYMFFTRO5A in the last 55678 hours. Invalid input(s): QKYKNXCX6OD, EFOMUDJG5KK, ITR8IGIO47, YERPYRVFNH6F, PNGOESYAI3DX, PVPPEWMSG3WC No results for input(s): COLORUA, CLARITYUA, SPECGRAVUA, PHUA, PROTEINUA, BLOODUA, LEUKOCYTEUA, NITRITEUA, GLUCOSEUA, KETONEUA, BILIRUBINUA, UROBILINUA, REDSUBUA, WBCUA, RBCUA, EPITHUA, MUCUSUA, BACTUA, YEASTUA, TRICHUA in the last 89335 hours. No results for input(s): WBC, RBC, HGB, HCT, MCV, MCHC, RDW, RDWCV, PLTCOUNT, NEUTPCT, LYMPHPCT, MONOCYTPCT, EOSINPCT, BASOPHILPCT, GRANSIMMPCT, LYMPHABS, MONOCYTABS, EOSINABS, BASOABS, IMMGRANSABS, NRBCAUTO in the last 24677 hours. No results for input(s): SEDRATE in the last 74658 hours. No results for input(s): CRP in the last 89888 hours. No results for input(s): INR in the last 11238 hours. Imaging No results found. Impression: 1) Postconcussion syndrome 2) Posttraumatic headache 3) S/P Right ear infection Syncope Memory loss Rebound headache (using excedrin) Discussion: No more syncope/fall/head trauma event with pass-out for about 2 hours. Pt had headache with dizziness, memory loss, blurry vision. Most consistent with post concussion syndrome. Mr brain 04/30 no acute stroke, visualized with patient at Clinic today. + R mastoid infection. Was treated by ENT. eeg reports normal. CT brain visualized no acute intracranial process. CT angiogram: no significant carotid stenosis. Some cervical spinal stenosis. I made the following recommendations: Increase Nortriptyline 30mg po qhs. Add 1 Pill every one to three days to target dose as tolerated.No driving when drowsy. Fish oil. avoid head trauma. Fioricet prn. Advised about to avoid frequent pain medications to reduce chance of rebound headaches. Only use pain meds for severe headaches. RTC 3 months. Accompanied by his and dtr today all questions answered. come to ER for [...] were explained in detail, agreeable with patient. Si. Time was spent reviewing imaging and laboratory results as well as discussion of the pathophysiology of disease process, diagnostic studies and prognosis of the diagnosed condition. All pertinent questions were answered to patient's satisfaction during this clinical visit. Patient is to closely follow with primary physician for the medical needs. Thank you for involving me in Wily Bahena's care Rosa Chow MD PhD H OPERATOR * Chase Reina - 09/03/2017 4:03 PM CST Patient is having consistent headaches every day. Has been only 7 days free of headaches. Average pain is 6/10 when experiencing headaches. H OPERATOR documented in this encounter Plan of Treatment Not on file documented as of this encounter Visit Diagnoses Diagnosis Postconcussion syndrome- Primary documented in this encounter
--- OUTSIDE RECORDS SUMMARY | 2024-09-03 07:51 | XMS_ITS | Encounter Summary ---
Author Organization [facility] Address [address] [place] [address] Care Team Providers Care Solar Photovoltaic Installer Name Role Phone Unavailable Primary Care Provider Unavailabl e Reason for Visit * Reason Onset Date Comments Question 07/15/2017 Encounter Details Date Type Department Care Team (Late st Contact Info) Description 07/15/2017 Telephone [facility] Neurosciences [id number] [phone] [place] [address] [phone] Question Social History Tobacco Use Types Packs/Day [...] Encounter - Maria Del Carmen Martines - 07/21/2017 4:37 PM CST Called patients and informed her of results. Nayana verbalized understanding. STD paperwork willbe discussed with Dr. Chow for approval tomorrow. ON MAKER * Telephone Encounter - Rosa Chow MD - 07/15/2017 12:[address] brain visualized no acute intracranial process. CT angiogram reports no significant stenosis. Heneed to continue taking nortriptyline, fall precaution avoid head trauma. Will check with Maria Del Carmen aboutthe disability paperwork. * Telephone Encounter - Aramis Mezasakshisultana - 07/15/2017 8:57 AM CDT Received a call from the patient (Nayana) requesting results of CT scan that were performed 07-08-17. Per dr. Chow protocol informed the results are unremarkable. The patient states should she assume them issues the patient is have are all concussion related. Question is there any other courseof action? The patient would also like to know if short term disability form's have been received for completion yet? Please advise documented in this encounter Plan of Treatment Not on file documented as of this encounter Visit Diagnoses Not on filedocumented in this encounter
--- OUTSIDE RECORDS SUMMARY | 2024-09-03 07:51 | XMS_ITS | Encounter Summary ---
Author Organization [facility] Address [address] [place] [address]. [place] [address] [place] [address] Care Team Providers Care Title Insurance Agent Name Role Phone Johnathon Braga Primary Care Provider + Encounter Details Date Type Department Care Team (Latest Contact Info) Description 05/19/2024 Travel Social History Tobacco Use Types Packs/Day [...] on file Legal Sex Male 11:26 AM HEALTH SCREENER Gender Identity Not on file Sexual Orientation Not on file documented as of this encounter Plan of Treatment Upcoming Encounters Date Type Department Care Team (Late st Contact Info) Description 09/10/2024 11:30 AM HEALTH SCREENER Appointment [facility] [address] [place] [address] Zay Juárez MD [address] [place] [phone] 10/25/2024 9:20 AM HEALTH SCREENER Office Visit [facility] Family & Internal Medicine [address] [phone] Johnathon Braga DO [address] [place] [address] 11/21/2024 9:40 AM CDT Office Visit [facility] Multispecialty Care - [facility] [address] [facility], [address] [place] [address] Shelli Gonzalez MD [address] [place] [address] documented as of this encounter Visit Diagnoses Not on filedocumented in this encounter Additional Health Concerns Assessment Noted Time PHQ-9 Depression Total Score: 4 07/20/20 23 11:48 AM HEALTH SCREENER documented as of this encounter Care Teams Title Insurance Agent Relationship Specialty Start Date End Date Johnathon Braga DO [address] [place] [address] PCP - General FAMILY PRACTICE 10/31/20 documented as of this encounter
--- OUTSIDE RECORDS SUMMARY | 2024-09-03 07:51 | XMS_ITS | Encounter Summary ---
Author Organization [facility] Address [address] [place] [address]. [place] [address] [place] [address] Care Team Providers Care Director Physical Name Role Phone Johnathon Braga Primary Care Provider + Encounter Details Date Type Department Care Team (Latest Contact Info) Description 08/22/2024 Scan [facility] INFO SRVCS Scanned, Doc Med Group Social History Tobacco Use Types Packs/Day Years [...] on file Legal Sex Male 11:26 AM PUTTYING AND CALKING SUPERVISOR Gender Identity Not on file Sexual Orientation Not on file documented as of this encounter Plan of Treatment Upcoming Encounters Date Type Department Care Team (Late st Contact Info) Description 09/10/2024 11:30 AM PUTTYING AND CALKING SUPERVISOR Appointment [facility] [address] [place] [address] Zay Juárez [place] [address] [phone] 10/25/2024 9:20 AM PUTTYING AND CALKING SUPERVISOR Office Visit [facility] Family & Internal Medicine - [place] [address] [place] [address] Johnathon Braga DO [address] [place] [address] 11/21/2024 9:40 AM CDT Office Visit [facility] Medical [facility] Multispecialty Care - [facility] [address] [facility], [address] [place] [address] Shelli Gonzalez MD [address] [place] [address] documented as of this encounter Visit Diagnoses Not on filedocumented in this encounter Additional Health Concerns Assessment Noted Time PHQ-9 Depression Total Score: 4 07/20/20 23 11:48 AM PUTTYING AND CALKING SUPERVISOR documented as of this encounter Care Teams Director Physical Relationship Specialty Start Date End Date Johnathon Braga DO [address] [place] [address] PCP - General FAMILY PRACTICE 10/31/20 documented as of this encounter
--- OUTSIDE RECORDS SUMMARY | 2024-09-03 07:51 | XMS_ITS | Encounter Summary ---
Author Organization [facility] Address [address] [place] [address] Care Team Providers Care Oil Scout Name Role Phone Unavailable Primary Care Provider Unavailabl e Reason for Visit * Reason Onset Date Comments Follow-up 10/12/2017 Encounter Details Date Type Department Care Team (Late st Contact Info) Description 10/12/2017 Telephone [facility] [address] [phone] Charley Mcconnell Follow-up Social History Tobacco Use Types Packs/Day [...]
--- OUTSIDE RECORDS SUMMARY | 2024-09-03 07:51 | XMS_ITS | Encounter Summary ---
Author Organization [facility] Address [address] [place] [address]. [place] [address] [place] [address] Care Team Providers Care Plant Packer Name Role Phone Johnathon Braga Primary Care Provider + Encounter Details Date Type Department Care Team (Latest Contact Info) Description 08/16/2024 Scan [facility] INFO SRVCS Scanned, [...] on file Legal Sex Male 11:26 AM VENETIAN BLIND MECHANIC Gender Identity Not on file Sexual Orientation Not on file documented as of this encounter Plan of Treatment Upcoming Encounters Date Type Department Care Team (Late st Contact Info) Description 09/10/2024 11:30 AM VENETIAN BLIND MECHANIC Appointment [facility] [address] [place] [address] Zay Juárez [place] [address] [phone] 10/25/2024 9:20 AM VENETIAN BLIND MECHANIC Office Visit [facility] Family & Internal Medicine - [place] [id number] [place] [address] Johnathon Braga DO [address] [place] [address] 11/21/2024 9:40 AM CDT Office Visit [facility] Medical [facility] Multispecialty Care - [facility] [address] [facility], [address] [place] [address] Shelli Gonzalez MD [address] [place] [address] documented as of this encounter Visit Diagnoses Not on filedocumented in this encounter Additional Health Concerns Assessment Noted Time PHQ-9 Depression Total Score: 4 07/20/20 23 11:48 AM VENETIAN BLIND MECHANIC documented as of this encounter Care Teams Plant Packer Relationship Specialty Start Date End Date Johnathon Braga DO [address] [place] [id number] PCP - General FAMILY PRACTICE 10/31/20 documented as of this encounter
--- OUTSIDE RECORDS SUMMARY | 2024-09-03 07:51 | XMS_ITS | Encounter Summary ---
Author Organization [facility] Address [address] [place] [address] Care Team Providers Care Pt Escort Name Role Phone Unavailable Primary Care Provider Unavailabl e Reason for Visit * Reason Onset Date Comments General 12/02/2017 Encounter Details Date Type Department Care Team (Late st Contact Info) Description 12/02/2017 Telephone [facility] [employer] Neurosciences [address] [phone] [place] [address] [phone] General Social History Tobacco Use Types Packs/Day [...] encounter Miscellaneous Notes * Telephone Encounter - Nick Meza - 12/03/2017 2:38 PM CDT Received a call from Elida with [facility] states the patient is scheduled for MRI Brain with/without contrast 12-08-17. States the patient needs to have authorization to proceed with testing. I spoke with Yung with [facility]'s regarding authorization for MRI Brain w/without [id number]. I provided the clinical information and obtained authorization. Approval #[id number] Effective 12-02-17 to 01-01-18 I spoke with Elida at [facility] and provided the approval code. Spoke with the patient (Nayana) to update her on the patient's status, she stated the testing had to be done by different facility due to insurance. Also states the VAS CAROTID DUPLEX BILATERAL Isscheduled for 12-07-17 at [facility]. I explained authorization for the MRI was approved and I have provided the approval information to Jessica. * Telephone Encounter - Reina Chase - 12/02/2017 3:39 PM CDT Patient's calling requesting a call back to speak about the tests that were ordered. Having anissue with the insurance for the tests and needs clarification on what is going on documented in this encounter Plan of Treatment Not on file documented as of this encounter Visit Diagnoses Not on filedocumented in this encounter
--- OUTSIDE RECORDS SUMMARY | 2024-09-03 07:51 | XMS_ITS | Encounter Summary ---
Author Organization [facility] Address [address] [place] [address]. [place], [place] [id number] [place] [address] Care Team Providers Care Pond Worker Name Role Phone Johnathon Braga Primary Care Provider + Reason for Visit * Reason Comments Follow Up Umbilical hernia rep air 04/21/2024 pain two days ago throbbing Encounter Details Date Type Department Care Team (Late st Contact Info) Description 05/19/2024 3:40 PM CDT Office Visit [facility] General Surgery [facility] [address] [facility], [place], [address] [place] [phone] [place] [id number] [address] Follow Up (Umbilical hernia repair 04/21/2024 pain two days ago throbbing) Social History Tobacco Use Types Packs/Day Years [...] on file Legal Sex Male 11:26 AM SUPERINTENDENT CIRCUS Gender Identity Not on file Sexual Orientation Not on file documented as of this encounter Last Filed Vital Signs Vital Sign Reading Time Taken Comments Blood Pressure 137/86 05/19/2024 3:57 PM CDT Pulse 52 05/19/2024 3:57 PM CDT Temperature 37.1 ??C (98.7 ??F) 05/19/2024 3:57 PM CD T Respiratory Rate 18 05/19/2024 3:57 PM CDT Oxygen Saturation 96% 05/19/2024 3:57 PM CDT Inhaled Oxygen Concentration - - Weight - - Height 180.3 cm (5' 11 ) 05/19/2024 3:57 PM CDT Body Mass Index - - documented in this encounter Progress Notes * Zay Truong MD - 05/19/2024 3:40 PM CDT Reason for Visit: Follow Up (Umbilical hernia repair 04/21/2024 pain two days ago throbbing) History of Present Illness: 4 weeks s/p umbilical hernia repair , no complaints ROS: Review of Systems All other systems reviewed and are negative. Medications: Current Outpatient Medications: allopurinol (ZYLOPRIM) 300 MG tablet, Take 1 tablet by mouth once daily, Disp: 90 tablet, Rfl: 0 Alpha-Lipoic Acid 600 MG Tab, Take 1 tablet by mouth daily., Disp: , Rfl: atorvastatin (LIPITOR) 10 MG tablet, take 1 tablet by mouth nightly at bedtime, Disp: 90 tablet, Rfl: 0 chlorthalidone (HYGROTEN) 25 MG tablet, Take 1 tablet by mouth once daily, Disp: 90 tablet, Rfl: 0 Cyanocobalamin (VITAMIN B-12) 50 MCG Tab, Take 50 mcg by mouth once., Disp: , Rfl: donepezil (ARICEPT) 10 MG Tab, Take 1 tablet (10 mg total) by mouth daily., Disp: 90 tablet, Rfl: 3 fish oil 1000 MG Cap capsule, Take by mouth 2 (two) times daily., Disp: , Rfl: gabapentin (NEURONTIN) 600 MG tablet, take 1 tablet by mouth three times daily, Disp: 270 tablet, Rfl: 0 glipiZIDE XL (GLUCOTROL XL) 5 MG 24 hr tablet, TAKE 1 TABLET BY MOUTH ONCE DAILY WITH BREAKFAST DO NOT BREAK OR CRUSH TABLET, Disp: 30 tablet, Rfl: 1 hydrOXYzine 50 MG tablet, Take by mouth every 8 (eight) hours as needed., Disp: , Rfl: lamoTRIgine 100 MG tablet, Take 1 tablet (100 mg total) by mouth 2 (two) times daily., Disp: , Rfl: meclizine (ANTIVERT) 25 MG tablet, Take 1 tablet (25 mg total) by mouth daily as needed. (Patient taking differently: Take 1 tablet (25 mg total) by mouth 3 (three) times daily as needed.), Disp: 30 tablet, Rfl: 0 Multiple Vitamins-Minerals (CENTRUM ADULTS OR), Take 1 tablet by mouth daily., Disp: , Rfl: PARoxetine (PAXIL) 20 MG tablet, Take 2 tablets (40 mg total) by mouth daily., Disp: , Rfl: propranolol LA (INDERAL LA) 60 MG 24 hr capsule, Take 1 capsule (60 mg total) by mouth daily., Disp: 30 capsule, Rfl: 11 tamsulosin 0.4 MG Cap, Take 1 capsule (0.4 mg total) by mouth daily., Disp: , Rfl: testosterone cypionate 200 MG/ML injection, Inject 1 mL (200 mg total) into the muscle every 21 days., Disp: , Rfl: vitamin D3, cholecalciferol, 1000 UNIT Tab tablet, Take 2 tablets (2,000 Units total) by mouth daily., Disp: , Rfl: Blood Glucose Monitoring Suppl (D-CARE GLUCOMETER) w/Device Kit, 1 Device by Does not apply route once for 1 dose. Accu-check brand, Disp: 1 kit, Rfl: 0 cephALEXin (KEFLEX) 500 MG capsule, Take 1 capsule (500 mg total) by mouth 2 (two) times daily. (Patient not taking: Reported on 05/19/2024), Disp: 14 capsule, Rfl: 0 Glucose Blood (ACCU-CHEK GUIDE) test strip, 1 strip by Other route as needed. Use once daily in theAM while fasting., Disp: 100 strip, Rfl: 1 Glucose Blood (ACCU-CHEK GUIDE) test strip, 1 strip by Other route every morning before breakfast. Use as instructed, Disp: 100 strip, Rfl: 1 Glucose Blood ([employer] GLUCOSE METER TEST STRIPS) test strip, 1 strip by Other route as needed. Use as instructed. Generic brand., Disp: 100 strip, Rfl: 3 Lancets Misc, 1 Lancet by Does not apply route daily as needed. Once daily. Use accu-check brand., Disp: 100 each, Rfl: 1 Review of patient's allergies indicates: Allergen Reactions Carbamazepine Rash and Swelling Past Medical History: Diagnosis Date Closed fibular fracture 04/20/2024 Dementia ([facility]) Diabetes mellitus ([facility]) Excessive anger Gout Hypertension Kidney stone Loss of hearing Numbness Post-concussional syndrome Tremor Past Surgical History: Procedure Laterality Date ANESTH,CERV SPINE,CORD SURGERY C3-7 HERNIA REPAIR 1971 LITHOTRIPSY UMBILICAL HERNIA REPAIR 04/21/2024 Social History Socioeconomic History Marital status: Tobacco Use Smoking status: Never Smokeless tobacco: Never Tobacco comments: na Vaping Use Vaping status: Never Used Substance and Sexual Activity Alcohol use: Never Drug use: Never Social Determinants of Health Food Insecurity: No Food Insecurity (07/15/2023) Received from [place], [place] and [facility] Food Insecurity Social/Environmental Concerns: No concerns Transportation Needs: No Transportation Needs (07/15/2023) Received from [place] [place] and [facility] Transportation Needs Social/Environmental Concerns: No concerns Intimate Partner Violence: Not At Risk (07/02/2023) Received from [place] [place] and [facility] Intimate Partner Violence Are you in a relationship with someone who hurts you emotionally and/or physically?: No Housing Stability: Low Risk (07/15/2023) Received from [place] [place] and [facility] Housing Stability Social/Environmental Concerns: No concerns Family History Problem Relation Name Age of Onset Cancer Mother Liver Disease Father No Known Problems Sister Prostate Cancer Brother Family Status Relation Name Status Mother Father Sister Alive Brother Alive No partnership data on file Physical Exam Abdominal: General: Abdomen is flat. Palpations: Abdomen is soft. Comments: Repair solid and intact , incision healing well Filed Vitals: 05/19/24 1557 BP: 137/86 Pulse: (!) 52 Resp: 18 Temp: 98.7 ??F (37.1 ??C) TempSrc: Core SpO2: 96% Height: 1.803 m (5' 11 ) PainSc: 0 (0-10 Scale) Diagnoses/Impression: 1. S/P umbilical hernia repair, follow-up exam Recommendations and Plan: May slowly resume normal activity and f/u on prn basis Reviewed and updated this visit by provider: Hazel TRUONG Referring Provider: No ref. provider found PCP: Johnathon Braga DO documented in this encounter Plan of Treatment Upcoming Encounters Date Type Department Care Team (Late st Contact Info) Description 09/10/2024 11:30 AM SUPERINTENDENT CIRCUS Appointment [facility] [address] [place], [place] [phone] [place] [address] [facility] [place] [address] [place] [address] 10/25/2024 9:20 AM SUPERINTENDENT CIRCUS Office Visit [facility] & Internal Medicine [address] [place] [address] Johnathon Braga DO [address] [place] [address] 11/21/2024 9:40 AM CDT Office Visit [facility] - [address], [address] [place] [phone] Shelli Gonzalez MD [address] [place] [id number] documented as of this encounter Visit Diagnoses Diagnosis S/P umbilical hernia repair, follow-up exam- Primary Follow-up examination, following other surgery documented in this encounter Additional Health Concerns Assessment Noted Time PHQ-9 Depression Total Score: 4 07/20/20 23 11:48 AM SUPERINTENDENT CIRCUS documented as of this encounter Care Teams Pond Worker Relationship Specialty Start Date End Date Johnathon Braga DO [address] [place] [address] PCP - General FAMILY PRACTICE 10/31/20 documented as of this encounter
--- OUTSIDE RECORDS SUMMARY | 2024-09-03 07:51 | XMS_ITS | Encounter Summary ---
Author Organization [facility] Address [address] [place] [address] Care Team Providers Care Ash Pit Worker Name Role Phone Unavailable Primary Care Provider Unavailabl e Reason for Visit * Reason Comments Cough Congestion Encounter Details Date Type Department Care Team (Late st Contact Info) Description 10/26/2016 10:40 AM SEMICONDUCTORS WAFER BREAKER Office Visit [facility] AT [address] [phone] Provider, [facility] Acute URI (Primary Dx) Social History Tobacco Use Types Packs/Day Years Used Date Smoking Tobacco: Never Sex and Gender Information Value Date Recorded Sex Assigned at Not on file Gender Identity Not on file Sexual Orientation Not on file documented as of this encounter Last Filed Vital Signs Vital Sign Reading Time Taken Comments Blood Pressure 138/72 10/26/2016 10:55 AM SEMICONDUCTORS WAFER BREAKER Pulse 70 10/26/2016 10:55 AM SEMICONDUCTORS WAFER BREAKER Temperature 36.8 ??C (98.3 ??F) 10/26/2016 10:[address] Respiratory Rate 16 10/26/2016 10:55 AM SEMICONDUCTORS WAFER BREAKER Oxygen Saturation 95% 10/26/2016 10:55 AM SEMICONDUCTORS WAFER BREAKER Inhaled Oxygen Concentration - - Weight 99.8 kg (220 lb) 10/26/2016 10:55 AM SEMICONDUCTORS WAFER BREAKER Height 180.3 cm (5' 11 ) 10/26/2016 10:55 AM SEMICONDUCTORS WAFER BREAKER Body Mass Index 30.68 10/26/2016 10:55 AM SEMICONDUCTORS WAFER BREAKER documented in this encounter Patient Instructions * Patient Instructions* Tracie Saleem APRN-CNP - 10/26/2016 11:13 AM SEMICONDUCTORS WAFER BREAKER Increase fluid intake and rest May take tylenol or ibuprofen per package directions for pain or fever saline nasal spray per package directions to help with nasal and sinus congestion Cover your mouth when you cough and sneeze and wear a mask when around others Wash your hands frequently Follow up if symptoms do not improve in 3-4 days or resolve as expected, sooner with any questions or concerns. Upper Respiratory Infection, Glue Bone Crusher GENERAL INFORMATION: An upper respiratory infection is also called a common cold. It can affect your nose, throat, ears,and sinuses. Common symptoms include the following: ?? Runny or stuffy nose ?? Sneezing and coughing ?? Sore throat or hoarseness ?? Red, watery, and sore eyes ?? Tiredness or restlessness ?? Chills and fever ?? Headache, body aches, or sore muscles Seek immediate care for the following symptoms: ?? Headaches or a stiff neck ?? Bright lights hurt your eyes ?? Chest pain or trouble breathing Treatment for an upper respiratory infection may include any of the following: ?? Decongestants help decrease nasal congestion and improve your breathing. Do not use decongestantsprays for more than a few days. ?? Cough suppressants help decrease coughing. Ask your healthcare provider which type of cough medicine is best for you. Some cough medicines need a doctor's order. ?? NSAIDs , such as ibuprofen, help decrease swelling, pain, and fever. This medicine is available with or without a doctor's order. NSAIDs can cause stomach bleeding or kidney problems in certain people. If you take blood thinner medicine, always ask your healthcare provider if NSAIDs are safe foryou. Always read the medicine label and follow directions. Care for an upper respiratory infection: ?? Rest until your fever is gone or you feel better. ?? Drink liquids as directed to prevent dehydration. You may need to drink 8 to 10 cups of liquid each day. Good liquids to drink include water, adela jayne, tea, or fruit juices. ?? Gargle with warm salt water to help your sore throat feel better. Mix ?? teaspoon salt with 1 cup warm water. You may also suck on hard candy or throat lozenges. ?? Saline nasal drops help loosen your nasal congestion. They can be bought without a doctor's order. ?? Take a warm bath or shower to help decrease body aches and help you breathe easier. ?? Use a cool-mist humidifier to increase air moisture and make it easier for you to breathe. Prevent the spread of germs: ?? Avoid others for the first 2 to 3 days of your cold. Germs are easily spread during this time. ?? Do not share food, drinks, towels, or personal items with others. ?? Wash your hands often. Use soap and water. Wash your hands after you use the bathroom, change a child's diapers, or sneeze. Wash your hands before you prepare or eat food. Cover your mouth and nose with a tissue when you sneeze or cough. Follow up with your healthcare provider as directed: Write down your questions so you remember to ask them during your visits. CARE AGREEMENT: You have the right to help plan your care. Learn about your health condition and how it may be treated. Discuss treatment options with your caregivers to decide what care you want to receive. You always have the right to refuse treatment. The above information is an hearing aide technician only. It is not intended as medical advice for individual conditions or treatments. Talk to your doctor, nurse or pharmacist before following any medical regimen to see if it is safe and effective for you. ?? 2015 [employer]. Information is for End User's use only and may not be sold, redistributed or otherwise used for commercial purposes. All illustrations and images included in CareNotes?? are the copyrighted property of [employer] or [employer]. CONDUCTORS WAFER BREAKER documented in this encounter Progress Notes * Tracie Saleem APRN-CNP - 10/26/2016 11:03 AM CST [facility] Chief Complaint Patient presents with ??? Cough ??? Congestion SUBJECTIVE: General The history is provided by the patient. This is a new problem. The current episode started more than 2 days ago. The problem occurs constantly. The problem has been gradually improving. Associated symptoms include headaches. Pertinent negatives include no shortness of breath. Treatments tried: exceddrine. The treatment provided mild relief. 6 days ago started with cough fever and fatigue, those symptoms have improved except the cough hanging on at bedtime Past Medical History Diagnosis Date ??? Depression ??? Gout ??? Kidney stones No current outpatient prescriptions on file prior to visit. No current facility-administered medications on file prior to visit. Past Surgical History Procedure Laterality Date ??? Hernia repair History Social History ??? Marital status: Spouse name: N/A ??? Number of children: N/A ??? Years of education: N/A Occupational History ??? Not on file. Social History Main Topics ??? Smoking status: Never Smoker ??? Smokeless tobacco: Not on file ??? Alcohol use: Not on file ??? Drug use: Not on file ??? Sexual activity: Not on file Other Topics Concern ??? Not on file Social History Narrative ??? No narrative on file No family history on file. Current Outpatient Prescriptions Medication Sig Dispense Refill ??? allopurinol (ZYLOPRIM) [...] medications for this visit. No Known Allergies REVIEW OF SYSTEMS: Review of Systems Constitutional: Fevera nd fatigue initally HENT: Positive for congestion. Negative for ear pain and sore throat. Respiratory: Positive for cough. Negative for sputum production, shortness of breath and wheezing. Dry nagging cough at bedtime No hx of asthma and never a smoker Gastrointestinal: Negative for nausea and vomiting. Neurological: Positive for headaches. OBJECTIVE: General appearance: alert, well appearing, and in no distress. BP 138/72 (BP SITE: LEFT ARM, BP POSITION: SITTING, BP CUFF SIZE: Adult) Pulse 70 Temp 98.3 ??F (Oral) Resp 16 Ht 1.803 m (5' 11 ) Wt 99.8 kg (220 lb) SpO2 95% BMI 30.68 kg/m2 Physical Exam Physical Exam Constitutional: well-developed, well-nourished, and in no distress. HENT: Head: Normocephalic. Right Ear: Tympanic membrane and ear canal normal. Left Ear: Tympanic membrane and ear canal normal. Nose: Mucosal edema and rhinorrhea present. Right sinus exhibits no maxillary sinus tenderness and no frontal sinus tenderness. Left sinus exhibits no maxillary sinus tenderness and no frontal sinus tenderness. Mouth/Throat: Uvula is midline and mucous membranes are normal. C;ear oropharyngeal exudate present. No posterior oropharyngeal edema or posterior oropharyngeal erythema. Eyes: Conjunctivae are normal. Neck: Normal range of motion. Cardiovascular: Normal rate and regular rhythm. Pulmonary/Chest: Effort normal and breath sounds normal. No respiratory distress. no wheezes. no rhonchi. No cough with deep breathing Lymphadenopathy: none Neurological: alert. Skin: Skin is warm and dry. Psychiatric: Affect normal. ASSESSMENT: Encounter Diagnosis Name Primary? Acute URI Yes PLAN: Orders Placed This Encounter ??? benzonatate (TESSALON) 100 MG capsule Sig: Take 1 Cap by mouth 3 times daily as needed for Cough Dispense: 20 Cap Refill: 0 ncrease fluid intake and rest May take tylenol or ibuprofen per package directions for pain or fever saline nasal spray per package directions to help with nasal and sinus congestion Cover your mouth when you cough and sneeze and wear a mask when around others Wash your hands frequently Follow up if symptoms do not improve in 3-4 days or resolve as expected, sooner with any questions or concerns. See handout on URI CONDUCTORS WAFER BREAKER documented in this encounter Miscellaneous Notes * Addendum Note - Tracie Saleem APRN-CNP - 10/26/2016 11:20 AM CSTAddended by: TRACIE SALEEM on: 10/26/2016 11:20 AM Modules accepted: Orders CONDUCTORS WAFER BREAKER documented in this encounter Plan of Treatment Not on file documented as of this encounter Visit Diagnoses Diagnosis Acute URI- Primary Acute upper respiratory infections of unspecified site documented in this encounter
--- OUTSIDE RECORDS SUMMARY | 2024-09-03 07:51 | XMS_ITS | Encounter Summary ---
Author Organization [facility] Address [address] [place] [address] Care Team Providers Care Ornamenter Name Role Phone Unavailable Primary Care Provider Unavailabl e Reason for Visit * Reason Onset Date Comments Follow-up 10/28/2016 Encounter Details Date Type Department Care Team (Late st Contact Info) Description 10/28/2016 Telephone [facility] [address] [phone] Charley Mcconnell Follow-up Social History [...]
--- OUTSIDE RECORDS SUMMARY | 2024-09-03 07:51 | XMS_ITS | Encounter Summary ---
Author Organization [facility] Address [address] [facility] [place] [address] Care Team Providers Care Homemaking Rehabilitation Consultant Name Role Phone Unavailable Primary Care Provider Unavailabl e Reason for Referral * Radiology Services (Routine) - Closed Specialty Diagnoses / Procedures Referred By Jonah weber Referred To Contact Diagnoses Postconcussion syndrome Syncope, unspecified syncope type Fall, subsequent encounter Procedures [place] [address] [address] [place] [address] [facility] [address] [place] [phone] Referral ID Status Reason Start Date Expiration Date Visits Re quested Visits Authorized [id number] Closed 07/01/2017 07/31/2017 1 1 Reason for Visit * Radiology Services (Routine) - Closed Specialty Diagnoses / Procedures Referred By Jonah weber Referred To Contact Diagnoses Postconcussion syndrome Syncope, unspecified syncope type Fall, subsequent encounter Procedures [place] [address] [address] [place] [address] [facility] [address] [place] [phone] Referral ID Status Reason Start Date Expiration Date Visits Re quested Visits Authorized [id number] Closed 07/01/2017 07/31/2017 1 1 Encounter Details Date Type Department Care Team (Latest Contact Info) Description 07/08/2017 2:00 PM CDT - 07/08/2017 11:59 PM CDT Hospital Encounter [facility] Imaging Services - [place] Scan [address] [place] [address] [place] [address] [address] [place] [address] Discharge Disposition: Home or Self Care Social [...] 06/03/2017 12/02/2017 documented as of this encounter Plan of Treatment Scheduled Orders Name Type Priority Associated Diagnoses Order Schedule CREATININE BLOOD - POINT OF CARE (IP) Point of Care Testing Routine Postconcussion syndrome Fall, subsequent encounter ONCE for 1 Occurrences starting 07/08/2017 until 07/08/2017 documented as of this encounter Procedures Procedure Name Priority Date/Time Associated Diagnosis Comments CT ANGIO BRAIN AND NECK Routine 07/13/2017 1:31 PM CDT Postconcussion syndrome Syncope, unspecified syncope type Fall, subsequent encounter documented in this encounter Results * CT ANGIO NECK HEAD W WO [...] a normal course and caliber to the wiyot of James. Procedure Note Flores Tee MD [...] a normal course and caliber to the wiyot of James. IMPRESSION Unremarkable CT angiogram head and neck. Rosa Chow MD CT ORDERABLES documented in this encounter Visit Diagnoses Diagnosis Postconcussion syndrome- Primary Fall, subsequent encounter Syncope, unspecified syncope type documented in this encounter Administered Medications Inactive Administered Medications - up to 3 most recent administrations Medication Order MAR Action Action Date Dose Rate Site iohexol (OMNIPAQUE 350) contrast Intravenous, CONTRAST ONCE, Starting on 07/13/17 at 1018, Until Thu07/15/17 at 1017 $ Given - Contrast 07/13/2017 10:18 AM CDT 80 mL documented in this encounter
--- OUTSIDE RECORDS SUMMARY | 2024-09-03 07:51 | XMS_ITS | Encounter Summary ---
Author Organization [facility] Address [address] [place] [address] Care Team Providers Care Aircraft Instrument Mechanic Name Role Phone Suman Monique DO Primary Care Provider [phone] Reason for Visit * Reason Comments Blurred Vision Encounter Details Date Type Department Care Team (Late st Contact Info) Description 04/20/2018 1:00 PM CDT Office Visit [facility] Ophthalmology [address] [place] [address] Luz Maria Chappell MD No information available Visual disturbance (Primary Dx); Postconcussion syndrome; Convergence insufficiency Social History Tobacco Use Types [...] as of this encounter Progress Notes * Luz Maria Chappell MD - 04/20/2018 3:54 PM CDT Wily Bahena is a 62 yo male with h/o concussion 03/23/2017 With difficulty in reading and computer since then and h/o photophobia MRI/CT head were negative per patient C/w post concussion syndrome, he has decreased convergence, photophobia Rest of his neuro-ophthalmic exam is normal including formal visual fiedls Plan: Recommend appliance line assembler eval for convergence assessment Update prescription for glasses after that Luz Maria Chappell MD documented in this encounter Plan of Treatment Not on file documented as of this encounter Procedures Procedure Name Priority Date/Time Associated Diagnosis Comments OPH VISUAL FIELD TEST SLU Routine 04/20/2018 2:16 PM CDT Visual disturbance documented in this encounter Results * Visual Oconnell (04/20/2018 2:16 PM CDT) Anatomical Region Laterality Modality Other 04/20/2018 2:16 PM CDT Christina Kirkland MD OPHTHALMOLOGY SE RVICES ORDERABLES documented in this encounter Visit Diagnoses Diagnosis Visual disturbance- Primary Unspecified visual disturbance Postconcussion syndrome Convergence insufficiency 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
--- OUTSIDE RECORDS SUMMARY | 2024-09-03 07:51 | XMS_ITS | Encounter Summary ---
Author Organization [facility] Health Address [address] [place] [address] Care Team Providers Care Park Manager Name Role Phone Unavailable Primary Care Provider Unavailabl e Reason for Referral * Radiology Services (Routine) - Closed Specialty Diagnoses / Procedures Referred By Jonah weber Referred To Contact Diagnoses Postconcussion syndrome Syncope, unspecified syncope type Fall, subsequent encounter Procedures [place] [address] [facility] [address] [place] [id number] [facility] [address] [place] [phone] Referral ID Status Reason Start Date Expiration Date Visits Re quested Visits Authorized [id number] Closed 07/01/2017 07/31/2017 1 1 Reason for Visit * Radiology Services (Routine) - Closed Specialty Diagnoses / Procedures Referred By Jonah weber Referred To Contact Diagnoses Postconcussion syndrome Syncope, unspecified syncope type Fall, subsequent encounter Procedures [place] [address] [facility] [address] [address] [place] [address] [facility] [address] [place] [phone] Referral ID Status Reason Start Date Expiration Date Visits Re quested Visits Authorized [id number] Closed 07/01/2017 07/31/2017 1 1 Encounter Details Date Type Department Care Team (Latest Contact Info) Description 07/08/2017 1:30 PM CDT - 07/08/2017 1:59 PM CDT Hospital Encounter [facility] Imaging Services - CT Scan [address] [place] [address] [place] [address] [facility] [address] [place] [address] Discharge Disposition: Home or Self Care Social [...] Name Priority Date/Time Associated Diagnosis Comments CT HEAD WO CONTRAST Routine 07/08/2017 2 :30 PM CDT Postconcussion syndrome Syncope, unspecified syncope type Fall, subsequent encounter documented in this encounter Results * CT HEAD NON CONTRAST (07/08/2017 2:30 [...] by Alexandra Elizabeth on 07/08/2017 3:[address] ORDERABLES documented in this encounter Visit Diagnoses Diagnosis Postconcussion syndrome Syncope, unspecified syncope type Fall, subsequent encounter documented in this encounter
--- OUTSIDE RECORDS SUMMARY | 2024-09-03 07:51 | XMS_ITS | Encounter Summary ---
Author Organization [facility] Address [address] [place] [address] Care Team Providers Care Head Bucker Name Role Phone Unavailable Primary Care Provider Unavailabl e Reason for Referral * Radiology Services (Routine) - Closed Specialty Diagnoses / Procedures Referred By Jonah weber Referred To Contact Diagnoses Postconcussion syndrome Syncope, unspecified syncope type Fall, subsequent encounter Procedures [place] [address] [address] [place] [address] [facility] [address] [place] [phone] Referral ID Status Reason Start Date Expiration Date Visits Re quested Visits Authorized [id number] Closed 07/01/2017 07/31/2017 1 1 * Radiology Services (Routine) - Closed Specialty Diagnoses / Procedures Referred By Jonah weber Referred To Contact Diagnoses Postconcussion syndrome Syncope, unspecified syncope type Fall, subsequent encounter Procedures CT ANGIO NECK [place] [address] [address] [place] [address] [facility] [address] [place] [phone] Referral ID Status Reason Start Date Expiration Date Visits Re quested Visits Authorized [id number] Closed 07/01/2017 07/31/2017 1 1 Reason for Visit * Reason Comments Follow-up found yesterday face down on floor - missed last 2 steps Dizziness lightheaded and dizz y afterwards Gait problem Headache bad RYDER after fall Encounter Details Date Type Department Care Team (Late st Contact Info) Description 07/01/2017 10:40 AM CDT Office Visit [facility] [address] [facility] [address] [place] [phone] [place] [address] [place] [address] Syncope, unspecified syncope type (Primary Dx); Postconcussion syndrome; Fall, subsequent encounter Social History Tobacco Use Types Packs/Day Years [...] Sign Reading Time Taken Comments Blood Pressure 112/78 07/01/2017 11:30 AM CDT Pulse 88 07/01/2017 11:30 AM CDT Temperature - - Respiratory Rate 16 07/01/2017 11:30 AM CDT Oxygen Saturation 97% 07/01/2017 11:30 AM CDT Inhaled Oxygen Concentration - - Weight 91.6 kg (202 lb) 07/01/2017 11:30 AM CDT Height 180.3 cm (5' 11 ) 07/01/2017 11:30 AM CDT Body Mass Index 28.17 07/01/2017 11:30 AM CDT documented in this encounter Progress Notes * Maria Del Carmen Fuchs - 08/04/2017 10:05 AM CST Patients was notified of results via telephone encounter on 07/21/17. HT CONTROL MANAGER * Rosa Chow MD - 07/14/2017 3:52 PM CDT Labs normal * Rosa Chow MD - 07/01/2017 11:48 AM CDT 07/01/2017 Wily Bahena 61 y.o. Referring Physician: Dr. Suman Monique DO MD Chief Complaint: Chief Complaint Patient presents with ??? Follow-up found yesterday face down on floor - missed last 2 steps ??? Dizziness lightheaded and dizzy afterwards ??? Gait problem ??? Headache bad RYDER after fall HPI: Wily Mclaughlin a 61 y.o. came for follow up of headache when he fell backward hitting his head with a laceration. He fell yesterday downstairs, passed out for about 2 hours. His had hard time to wake him up. The headache is on the frontal area, up to 3-9/10, aching pain without nausea, lightand sound sensitivity. He refused to come to ER. He had some memory loss. He had ear infection on 05/06, and cleared up better with the right ear. He still had dizziness with lightheadedness and blurry vision. The patient denies weakness, numbness, double-vision, slurred speech, incontinence of bowel bladder. He had some neck pain better with PT. He had no back pain. There is no seizure-like events, no tongue biting. Past Medical History: Diagnosis Date ??? Depression [...] mouth at bedtime 90 capsule 3 ??? mrjiamjcrk-vnidcxelybyir-zidvpzdn (FIORICET) 50-300-40 MG capsule Take 1 capsule by mouth every4 hours as needed for Headache 30 capsule 3 ??? allopurinol (ZYLOPRIM) 300 MG tablet Take 300 mg by mouth once daily ??? aMILoride-hydroCHLOROthiazide (MODURETIC) 5-50 MG tablet Take 1 Tab by mouth once daily ??? sertraline (ZOLOFT) 100 MG tablet Take 150 mg by mouth once daily ??? benzonatate (TESSALON) 100 MG capsule Take 1 Cap by mouth 3 times daily as needed for Cough (Patient not taking: Reported on 06/24/2017) 20 Cap 0 No current facility-administered medications for this visit. No Known Allergies Social History Social History ??? Marital status: Spouse name: N/A ??? Number of children: 1 ??? 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 Smoking status: [...] ??? nortriptyline (PAMELOR) 10 MG capsule ??? hbdztyduwi-qqratdnmizwot-qczhlaix (FIORICET) 50-300-40 MG capsule ??? allopurinol (ZYLOPRIM) 300 MG tablet ??? aMILoride-hydroCHLOROthiazide (MODURETIC) 5-50 MG tablet ??? sertraline (ZOLOFT) 100 MG tablet ??? benzonatate (TESSALON) 100 MG capsule No current facility-administered medications for this visit. EXAMINATION: BP 112/78 (BP SITE: LEFT ARM, BP POSITION: SITTING, BP CUFF SIZE: Large Adult) Pulse 88 Resp 16 Ht 1.803 m (5' 11 ) Wt 91.6 kg (202 lb) SpO2 97% BMI 28.17 kg/m2 General: General appearance: well developed, in no distress. Neck supple. CVS: No carotid bruit. Scalp laceration on top of his head on 03/23. Neurological Examination: Mental Status: Awake, Alert. Oriented. Follows commands, Speech clear. Has good fund of knowledge, attention, comprehension and insight. Cranial Nerves: VFF to confrontation, Fundi normal, PERRL, EOMI, no ptosis, nystagmus or diplopia. Facial sensationintact bilaterally; Face symmetric, hearing intact bilaterally, palate symmetric Uvula, shoulder shrug symmetric, and tongue midline. Motor: Strength normal bl UEs/LEs. No asterixis, tremor or myoclonus. Normal tone. No atrophy. No Clonus. Sensation: Intact to light touch, temperature. Reflexes: DTRs 1. Triceps(C7) -trace-1 2. Biceps (C5,6) - 2+ 2. Brachioradialis (C6) 1+ 3. Patellar (L4) - 2.5+ 4. Achilles (S1) - 2+ 5. Plantar responses down going bilaterally. Coordination/Cerebellar: Intact to oetrqb-mnxj-wecucp. Gait: walks heel and toe without difficulty, normal tandem gait and Romberg test. Station: steady. Imaging/Laboratory review: No results for input(s): SODIUM, POTASSIUM, CHLORIDE, CO2, BUN, CREATININE, GLUCOSE, CALCIUM in thelast 32026 hours. No results for input(s): WBC, HGB, HCT, PLTCOUNT in the last 60878 hours. No results for input(s): TSH in the last 13525 hours. No results for input(s): CK in the last 54043 hours. No results for input(s): PHENYTOIN in the last 96144 hours. No results for input(s): VPA in the last 87870 hours. No results for input(s): ALBUMIN, ALKPHOS, ALT, AST, TBIL, DBIL, TPROT in the last 05098 hours. No results for input(s): CHOL, TRIG, HDL, LDLCALC, LDLDIRECT in the last 47685 hours. No results for input(s): HGBA1C in the last 16243 hours. No results for input(s): ZCTDYJEK85 in the last 05871 hours. No results for input(s): AMMONIA in the last 17610 hours. No results for input(s): SKCETKOSW5FJ, FRXGCGNRPB4J, YAHBNEIIRZ2O, ZAJHLJ5CL, SGIZQTJVQO1R in the last 85533 hours. Invalid input(s): FOZWOHKY7DX, OMTQMAZQ2DB, OBE4MYDO83, YWNMGNPWSY7U, FIWWLOQQM2RS, JNSIBMKIW1AY No results for input(s): COLORUA, CLARITYUA, SPECGRAVUA, PHUA, PROTEINUA, BLOODUA, LEUKOCYTEUA, NITRITEUA, GLUCOSEUA, KETONEUA, BILIRUBINUA, UROBILINUA, REDSUBUA, WBCUA, RBCUA, EPITHUA, MUCUSUA, BACTUA, YEASTUA, TRICHUA in the last 72175 hours. No results for input(s): WBC, RBC, HGB, HCT, MCV, MCHC, RDW, RDWCV, PLTCOUNT, NEUTPCT, LYMPHPCT, MONOCYTPCT, EOSINPCT, BASOPHILPCT, GRANSIMMPCT, LYMPHABS, MONOCYTABS, EOSINABS, BASOABS, IMMGRANSABS, NRBCAUTO in the last 27597 hours. No results for input(s): SEDRATE in the last 60292 hours. No results for input(s): CRP in the last 84217 hours. No results for input(s): INR in the last 43154 hours. Imaging No results found. Impression: Syncope 1) Postconcussion syndrome 2) Posttraumatic headache 3) S/P Right ear infection Memory loss Rebound headache (using excedrin) Discussion: Had a syncope event with pass-out for about 2 hours. Pt had headache with dizziness, memory loss, blurry vision. Most consistent with post concussion syndrome. Mr brain 04/30 no acute stroke, visualized with patient at Clinic today. + R mastoid infection. Was treated by ENT. eeg reports normal. I made the following recommendations: ct brain for possible acute intracranial process contributing to syncope or as result of fall. Will obtain cta for possible significant carotid stenosis, verteberal/basilar artery stenosis contributing to syncope. Fall precaution. No stairs. Hold off flying. F-U with cardiology for syncope. Check orthostatic blood pressure per primary team. Nortriptyline 10mg po qhs. Add 1 Pill every one to three days to target dose as tolerated. No driving when drowsy. Fish oil. avoid head trauma. Fioricet prn. Advised about to avoid frequent pain medications to reduce chance of rebound headaches. Only use pain meds for severe headaches. Pending records from Dr. Cerda office. RTC 3 months. Accompanied by his today all questions answered. come to ER [...] were explained in detail, agreeable with patient. Over 40 mintues was spent reviewing imaging and laboratory results as well as discussion of the pathophysiology of disease process, diagnostic studies and prognosis of the diagnosed condition. All pertinent questions were answered to patient's satisfaction during this clinical visit. Patient is to closely follow with primary physician for the medical needs. Thank you for involving me in Wily Nichols Maimary jane's care Rosa Chow MD PhD documented in this encounter Miscellaneous Notes * Addendum Note - Maria Del Carmen Fuchs - 07/01/2017 12:44 PM CDTAddended by: MARIA DEL CARMEN FUCHS on: 07/01/2017 12:44 PM Modules accepted: Orders documented in this encounter Plan of Treatment Not on file documented as of this encounter Procedures Procedure Name Priority Date/Time Associated Diagnosis Comments CK BLOOD Routine 07/01/2017 1:25 PM CDT Syncope, unspecified syncope type TSH Routine 07/01/2017 1:25 PM CDT Syncope, unspecified syncope type documented in this encounter Results * CT [...] a normal course and caliber to the nome of [place]. Procedure Note Flores Tee MD [...] a normal course and caliber to the nome of [place]. IMPRESSION Unremarkable CT angiogram head and neck. Rosa Chow MD CT ORDERABLES * CT HEAD NON [...] 3:02 PM [address] ORDERABLES * CK BLOOD (07/01/2017 1:25 PM CDT) Pathologist [facility] CK 54 44 - 196 U/L [facility] Comment: Test Performed at: [facility] ??[phone] NELL RUABLCAVA DO,MPH Blood BLOOD SPECIMEN / Unknown 07/01/2017 1:25 PM CDT 07/01/2017 1:25 PM CDT Rosa Chow MD LAB - CHEMISTRY ZAID MCDON[facility] Organization Address City/State/ZIP Co de Phone Number [facility] [address] [place] [address] * TSH (07/01/2017 1:25 PM CDT) TSH 1.04 0.40 - 4.50 mIU/L [facility] Comment: Test Performed at: [facility] [address] [place], [place] ??[phone] NELL RUBALCAVA DO,MPH Blood BLOOD SPECIMEN / Unknown 07/01/2017 1:25 PM CDT 07/01/2017 1:25 PM CDT Rosa Chow MD LAB - CHEMISTRY ZAID MCDONALD [facility] Organization Address City/State/[facility] Co de Phone Number [facility] [phone] [place] [address] documented in this encounter Visit Diagnoses Diagnosis Syncope, unspecified syncope type- Primary Postconcussion syndrome Fall, subsequent encounter Postconcussion syndrome- Primary Fall, subsequent encounter Syncope, unspecified syncope type Postconcussion syndrome Syncope, unspecified syncope type Fall, subsequent encounter documented in this encounter
--- OUTSIDE RECORDS SUMMARY | 2024-09-03 07:51 | XMS_ITS | Encounter Summary ---
Author Organization [facility] Health Address [address] [place] [address] Care Team Providers Care Clerical Adviser Name Role Phone Unavailable Primary Care Provider Unavailabl e Reason for Visit * Reason Onset Date Comments Results 12/14/2017 Encounter Details Date Type Department Care Team (Late st Contact Info) Description 12/14/2017 Telephone [facility] [employer] [address] [facility] [address] [place] [phone] [place] [address] [id number] Results Social History Tobacco Use Types Packs/Day [...] Encounter - Maria Del Carmen Martines - 12/17/2017 10:[address] Head non contrast has been authorized after Dr. Chow did a peer to peer with insurance [employer]. Auth # [id number] starting today 12/17/17 - 01/15/18. Faxed over CT head without contrast order to [facility] at [phone] today. * Telephone Encounter - Rosa Chow MD - 12/17/2017 9:51 AM CDT done * Telephone Encounter - Maria Del Carmen Martines - 12/17/2017 9:45 AM CDT Placed order for CT head wo contrast. Please sign. * Telephone Encounter - Rosa Chow MD - 12/16/2017 2:18 PM CDT Noted. * Telephone Encounter - Maria Del Carmen Martines - 12/16/2017 1:[address] Chow US Carotid duplex doppler results are no significant stenosis and MRI showed no acute stroke but did see right side of sphenoid bone greater than left side. MRI recommends to have CT Head non contrast to be completed. Spoke with pt's informed her of results. She verbalized understanding. She said that the patient will need to get this done this or Thursday due to having neck surgery on Thursday. Patient will then not be able to get imaging until the end of January. Called Mia at Dr. Hamilton's office at [phone] opt 1 and left a message regarding patients MRI results that needs additional testing. Faxed over the MRI results to [phone]. * Telephone Encounter - Hilda Sr - 12/14/2017 1:33 PM CDT calling stating no one has called her with the results of the MRI of the Brain and Carotid Duplex. She stated she called last week and was told that Maria Del Carmen had them. I do not see these test scannedin, do you have the results. documented in this encounter Plan of Treatment Not on file documented as of this encounter Visit Diagnoses Diagnosis Abnormal MRI- Primary Other nonspecific (abnormal) findings on radiological and other examinations of body structure Post concussion syndrome Postconcussion syndrome documented in this encounter
--- OUTSIDE RECORDS SUMMARY | 2024-09-03 07:51 | XMS_ITS | Encounter Summary ---
Author Organization [facility] Address [address] [place] [address] Care Team Providers Care Cellophane Bath Mixer Name Role Phone Unavailable Primary Care Provider Unavailabl e Reason for Visit * Reason Comments Ear Pain Encounter Details Date Type Department Care Team (Late st Contact Info) Description 10/10/2017 10:20 AM EMT P Office Visit [facility] AT [address] [phone] Provider, [facility] Left acute otitis media (Primary Dx) Social History Tobacco Use Types [...] Sign Reading Time Taken Comments Blood Pressure 120/82 10/10/2017 10:29 AM EMT P Pulse 96 10/10/2017 10:29 AM EMT P Temperature 36.7 ??C (98.1 ??F) 10/10/2017 10:[address] Respiratory Rate 6 10/10/2017 10:29 AM EMT P Oxygen Saturation 96% 10/10/2017 10:29 AM EMT P Inhaled Oxygen Concentration - - Weight 99.8 kg (220 lb) 10/10/2017 10:29 AM EMT P Height 180.3 cm (5' 11 ) 10/10/2017 10:29 AM EMT P Body Mass Index 30.68 10/10/2017 10:29 AM EMT P documented in this encounter Patient Instructions * Patient Instructions* Poonam Matson APRN-AEROSPACE TECHNICIAN - 10/10/2017 10:48 AM EMT P Images from the original note were not included. Ear Infection WHAT YOU NEED TO KNOW: What do I need to know about an ear infection? An ear infection is also called otitis media. An earinfection may be caused by blocked or swollen eustachian tubes. Eustachian tubes connect the middleear to the back of the nose and throat. They drain fluid from the middle ear. With an ear infection, fluid builds up and is infected by germs. The germs grow easily in fluid trapped behind the eardrum. What are the signs and symptoms of an ear infection? ?? Ear pain ?? Fever or a headache ?? Trouble hearing ?? Ringing or buzzing in your ear ?? Plugged ear or an ear that feels full ?? Dizziness ?? Nausea or vomiting How is an ear infection diagnosed? Your healthcare provider will look inside your ears. He or she may blow a puff of air inside your ears. This will show if your eardrums look healthy. If your eardrum is infected, it will look red and swollen and not move as it should. A tympanogram is another testthat may be done. During the test, an ear plug is put into each of your ears. Air pressure is used to see how the eardrum moves. It can help your healthcare provider learn if you have fluid in your middle ear. How is an ear infection treated? ?? Acetaminophen decreases pain and fever. It is available without a doctor's order. Ask how much to take and how often to take it. Follow directions. Read the labels of all other medicines you are using to see if they also contain acetaminophen, or ask your doctor or pharmacist. Acetaminophen can cause liver damage if not taken correctly. Do not use more than 4 grams (4,000 milligrams) total of acetaminophen in one day. ?? NSAIDs , such as ibuprofen, help decrease swelling, pain, and fever. This medicine is available with or without a doctor's order. NSAIDs can cause stomach bleeding or kidney problems in certain people. If you take blood thinner medicine, always ask your healthcare provider if NSAIDs are safe foryou. Always read the medicine label and follow directions. ?? Ear drops help treat your ear pain. ?? Antibiotics help treat a bacterial infection that caused your ear infection. How can I manage my symptoms? ?? Apply heat on your ear for 15 to 20 minutes, 3 to 4 times a day or as directed. Heat helps decrease pain. ?? Apply ice on your ear for 15 to 20 minutes, 3 to 4 times a day for 2 days or as directed. Use anice pack, or put crushed ice in a plastic bag. Cover it with a towel before you apply it to your ear. Ice decreases swelling and pain. How can I help prevent an ear infection? ?? Wash your hands often. Use soap and water. Wash your hands after you use the bathroom, change a child's diapers, or sneeze. Wash your hands before you prepare or eat food. ?? Stay away from people who are ill. Some germs are easily and quickly spread through contact. Call 911 or have someone call 911 for the following: ?? You have a seizure. When should I seek immediate care? ?? You have a fever and a stiff neck. When should I contact my healthcare provider? ?? Your ear pain gets worse or does not go away, even after treatment. ?? The outside of your ear is red or swollen. ?? You are vomiting or have diarrhea. ?? You have fluid coming from your ear. ?? You have questions or concerns about your condition or care. CARE AGREEMENT: You have the right to help plan your care. Learn about your health condition and how it may be treated. Discuss treatment options with your caregivers to decide what care you want to receive. You always have the right to refuse treatment. The above information is an maid cleaning cooking only. It is not intended as medical advice for individual conditions or treatments. Talk to your doctor, nurse or pharmacist before following any medical regimen to see if it is safe and effective for you. ?? 2017 [employer] Information is for End User's use only and may not be sold, redistributed or otherwise used for commercial purposes. All illustrations and images included in CareNotes?? are the copyrighted property of [employer] or [employer]. P documented in this encounter Progress Notes * Poonam Matson APRN-CNP - 10/10/2017 10:38 AM CST Subjective: Wily Bahena is a 62 y.o. male who presents for evaluation: Chief Complaint Patient presents with ??? Ear Pain Primary Care Physician is Suman Monique DO. Symptoms include ear pain left and drainage left. Onset of symptoms was 1 day ago, gradually worsening since that time. No associated symptoms. Patient denies fever, chills, body aches, cough, congestion, sore throat, shortness of breath, chest pain, wheezing or n/v/d. He is drinking plenty of fluids. Evaluation to date: none. Treatment to date: No previous treatments Patient does have a hx of ear infections. Patient does have a hx of a fungal infection in the rightear in the past. states he does have an ENT, has not been to see him in over a year. Does have a hx of post concussion from injury in March. Does see a neurologist. Patient states he still gets headaches and blurry vision at time, states he has not had any more than normal since ear pain started. No Known Allergies Outpatient Prescriptions Marked as Taking for the 10/10/17 encounter (Office Visit) with Provider, Marla Ornelas Medication Sig ??? amoxicillin (AMOXIL) 500 MG capsule Take 2 capsules by mouth 2 times daily for 10 days ??? ciprofloxacin-dexamethasone (CIPRODEX) 0.3-0.1 % otic suspension Instill 4 drops into left ear 2 times daily for 7 days Shake well before using. ??? nortriptyline (PAMELOR) 10 MG capsule Take 3 capsules by mouth at bedtime ??? VYVANSE 50 MG capsule Take 50 mg by mouth once daily ??? meclizine (ANTIVERT) 25 MG tablet Take 25 mg by mouth 3 times daily as needed ??? testosterone cypionate (DEPO-TESTOTERONE) 200 MG/ML injection Inject 1 mL into muscle every 14 days ??? Multiple Vitamin (MULTI VITAMIN DAILY PO) Take 1 tablet by mouth once daily Reasons: Centrium Silver 50+ ??? ztweogvhks-iqougygcvmxoc-sjuntbie (FIORICET) 50-300-40 MG capsule Take 1 capsule by mouth every4 hours as needed for Headache ??? allopurinol (ZYLOPRIM) 300 MG tablet Take 300 mg by mouth once daily ??? aMILoride-hydroCHLOROthiazide (MODURETIC) 5-50 MG tablet Take 1 Tab by mouth once daily ??? sertraline (ZOLOFT) 100 MG tablet Take 150 mg by mouth once daily Past Medical History: Diagnosis Date ??? Depression ??? Gout ??? Kidney stones Past Surgical History: Procedure Laterality Date ??? Hernia Repair 1973 Family History Problem Relation Age of Onset ??? Cancer - Breast Mother ??? Cirrhosis Father ??? Cancer - Prostate Brother Social History Social History ??? Marital status: Spouse name: N/A ??? Number of children: 1 ??? 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 Smoking status: Never Smoker ??? Smokeless tobacco: Never Used ??? Alcohol use No ??? Drug use: No ??? Sexual activity: Not on file Other Topics Concern ??? Not on file Social History Narrative Medications reviewed. Review of Systems Constitutional: Negative Eyes: Negative Ears, nose, mouth, and throat: Positive for earaches on left, ear drainage on left Respiratory: Negative Cardiovascular: Negative Gastrointestinal: Negative Skin: Negative Neurological: Positive dizziness and headache (has been since last March from head injury, does see a neurologist). Objective: BP 120/82 (BP SITE: LEFT ARM, BP POSITION: SITTING, BP CUFF SIZE: Adult) Pulse 96 Temp 98.1 ??F (Oral) Resp 6 Ht 1.803 m (5' 11 ) Wt 99.8 kg (220 lb) SpO2 96% BMI 30.68 kg/m2 Physical Exam Exam General appearance: alert, cooperative, no distress Eyes: sclera and conjunctiva clear, EOMI and PERRLA, lids normal Ears: Right tympanic membrane - normal, canal clear and wnl, hearing intact to voice. Left tympanicmembrane - erythematous, air/fluid interface visualized and bulging, landmarks not visible. Canal clear and wnl. No pinna or tragus tenderness Nose: nares open; no septal deviation is noted, nasal mucosa not inflamed Throat: no mucous membrane abnormalities, tongue midline and normal, soft palate, uvula, and tonsils normal, oropharynx pink & moist without lesions or evidence of thrush Neck: supple, ROM intact Nodes: post-auricular adenopathy on the left, small, tender, and mobile. No axillary or supraclavicular adenopathy Lungs: breath sounds normal and symmetric; no rales or wheezes Heart: regular rhythm, normal S1 and S2, without murmurs, gallops or rubs Skin: no rashes or other abnormalities are noted Neurologic: mental status normal; alert and oriented X 3; cranial nerves II - XII are grossly intact Assessment: . Encounter Diagnoses Name Primary? Left acute otitis media Yes Plan: Discussed dx and treatment of AOM Start Amoxicillin for AOM. Educated to take medication with food and finish entire course of antibiotic. Discussed medication use, side effects, & s/s of allergic rx. Rest, increase fluids Do no use q-tips to clean ears Can take Tylenol or Ibuprofen as needed for pain. Take as directed. Avoid smoke exposure Flonase 2 sprays in each nostril to help with fluid in the ear, can add Zyrtec or Claritin to help with fluid. ER if having severe ear pain, hearing loss, uncontrollable fever, increased fatigue, respiratory difficulty, or increase in severity of symptoms Continue to follow up with Suman Monique, DO as directed. Follow-up with ENT After Visit Summary reviewed with patient. The patient indicates understanding of these issues and agrees with the plan. Patient discharged to Home .SCARLET Roldan 10/10/2017 2:12 PM Orders Placed This Encounter ??? amoxicillin (AMOXIL) 500 MG capsule Sig: Take 2 capsules by mouth 2 times daily for 10 days Dispense: 40 capsule Refill: 0 ??? ciprofloxacin-dexamethasone (CIPRODEX) 0.3-0.1 % otic suspension Sig: Instill 4 drops into left ear 2 times daily for 7 days Shake well before using. Dispense: 1 bottles Refill: 0 No results found for this or any previous visit (from the past 24 hour(s)). P documented in this encounter Plan of Treatment Not on file documented as of this encounter Visit Diagnoses Diagnosis Left acute otitis media- Primary Unspecified otitis media documented in this encounter
--- OUTSIDE RECORDS SUMMARY | 2024-09-03 07:51 | XMS_ITS | Encounter Summary ---
Author Organization [facility] Address [address] [place] [address] Care Team Providers Care Extrusion Process Operator Name Role Phone Unavailable Primary Care Provider Unavailabl e Reason for Referral * Neurology (Routine) - Closed Specialty Diagnoses / Procedures Referred By Jonah weber Referred To Contact Neurology Diagnoses Postconcussion syndrome Memory [place] [id number] [place] [id number] Referral ID Status Reason Start Date Expiration Date Visits Re quested Visits Authorized [id number] Closed 06/24/2017 12/21/2017 1 1 Reason for Visit * Reason Comments Consultation Injury Head fell backwards at wo rk 03/23/17 Dizziness quickly gets up or b ends over Headache every day since Gait problem feels as if balance is off at times Numbness right side of face u nder ear comes and goes Memory Loss short term since acc ident Encounter Details Date Type Department Care Team (Latest Contact Info) Description 06/24/2017 10:40 AM CDT Office Visit [facility] [id number] [place] [address] [place] [phone] [place] [id number] [address] [place] [id number] Postconcussion syndrome (Primary Dx); Memory loss; Post-traumatic headache, not intractable, unspecified chronicity pattern Social History Tobacco Use Types Packs/Day Years [...] Sign Reading Time Taken Comments Blood Pressure 152/88 06/24/2017 11:37 AM CDT Pulse 60 06/24/2017 11:37 AM CDT Temperature - - Respiratory Rate 16 06/24/2017 11:37 AM CDT Oxygen Saturation 97% 06/24/2017 11:37 AM CDT Inhaled Oxygen Concentration - - Weight 93.9 kg (207 lb) 06/24/2017 11:37 AM CDT Height 180.3 cm (5' 11 ) 06/24/2017 11:37 AM CDT Body Mass Index 28.87 06/24/2017 11:37 AM CDT documented in this encounter Patient Instructions * Patient Instructions* Maria Del Carmen Martines - 06/24/2017 12:27 PM CDT Call physician if symptoms worsen or with any questions. Take Medications as prescribed. For descriptions of a variety of neurological conditions please visit: [email or web address] DIRECTIONS ON TAKING NORTRIPTYLINE 10 mg capsule: Take 1 capsule by mouth at bedtime for the first 3 days. Take 2 capsules by mouth at bedtime for the next 3 days. Take 3 capsules by mouth at bedtime going further as tolerated. EEG INSTRUCTIONS: MUST HAVE CLEAN DRY HAIR. NO SPRAYS, GELS, CLIPS, SRINATH, OR HAIRPIECES. documented in this encounter Progress Notes * Rosa Ayala MD - 06/24/2017 11:46 AM CDT 06/24/2017 Wily Bahena 61 y.o. Referring Physician: Dr. Suman Monique DO MD Chief Complaint: Chief Complaint Patient presents with ??? Consultation ??? Injury Head fell backwards at work 03/23/17 ??? Dizziness quickly gets up or bends over ??? Headache every day since ??? Gait problem feels as if balance is off at times ??? Numbness right side of face under ear comes and goes ??? Memory Loss short term since accident HPI: Wily Caubleis a 61 y.o. who was consulted for headache since 03/23 when he fell backward hitting his head with a laceration. He went back to work right away for 6 weeks. The headache is on the frontal area, up to 02/21, aching pain with nausea, light and sound sensitivity. He had some memory loss. He had ear infection on 05/06, and cleared up better with the right ear. He has seen 2 ENT physician. He now had dizziness with lightheadedness and blurry vision. [...] once daily Reasons: Centrium Silver 50+ ??? 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 Smoking status: [...] Multiple Vitamin (MULTI VITAMIN DAILY PO) ??? allopurinol (ZYLOPRIM) 300 MG tablet ??? aMILoride-hydroCHLOROthiazide (MODURETIC) 5-50 MG tablet ??? sertraline (ZOLOFT) 100 MG tablet ??? benzonatate (TESSALON) 100 MG capsule No current facility-administered medications for this visit. REVIEW OF SYSTEMS: Bolded are positive: Review of Systems Constitutional: Excessive sweating, weight loss, fever Eyes: Blurred vision, double vision, cataracts, glaucoma. Ears, Nose, Mouth, Throat: Ringing in ears, hearing loss, vertigo Cardiovascular: Irregular heartbeat, chest pain, fainting Respiratory: Asthma, shortness of breath, cough Genitourinary: Pain with urination, difficulty urinating, incontinence, kidney stone. Endocrine: hot/cold intolerance, increased urination, skin changes. Gastrointestinal: Abdominal pain, Nausea, vomiting Musculoskeletal: Joint pain, muscle pain, back pain, neck pain, limb pain Psychiatric: Anxiety, Depression, Mood swings. Contraception (For child-bearing woman): Pills, Depo, IUD, tubal ligation, partner had vasectomy, hysterectomy. Neurologic: headaches, weakness, numbness, double-vision, slurred speech, incontinence of bowel bladder, tremor, unsteady gait, memory loss. EXAMINATION: BP 152/88 (BP SITE: LEFT ARM, BP POSITION: SITTING, BP CUFF SIZE: Adult) Pulse 60 Resp 16 Ht 1.803 m (5' 11 ) Wt 93.9 kg (207 lb) SpO2 97% BMI 28.87 kg/m2 General: General appearance: well developed, in [...] responses down going bilaterally. Coordination/Cerebellar: Intact to [id number]-[id number]-[id number]. Gait: walks heel and toe without difficulty, normal tandem gait and Romberg test. Station: steady. Imaging/Laboratory review: No results for input(s): SODIUM, POTASSIUM, CHLORIDE, CO2, BUN, CREATININE, GLUCOSE, CALCIUM in thelast 56275 hours. No results for input(s): WBC, HGB, HCT, PLTCOUNT in the last 27085 hours. No results for input(s): TSH in the last 71931 hours. No results for input(s): CK in the last 73871 hours. No results for input(s): PHENYTOIN in the last 22956 hours. No results for input(s): VPA in the last 95622 hours. No results for input(s): ALBUMIN, ALKPHOS, ALT, AST, TBIL, DBIL, TPROT in the last 11127 hours. No results for input(s): CHOL, TRIG, HDL, LDLCALC, LDLDIRECT in the last 04436 hours. No results for input(s): HGBA1C in the last 67690 hours. No results for input(s): TNPGSACC14 in the last 96927 hours. No results for input(s): AMMONIA in the last 31535 hours. No results for input(s): OMJYQANLP3UJ, OOVABKWBMZ3X, EBLJSMUYFD6E, NWTFRR1PK, FPOYDABPVU5Z in the last 54436 hours. Invalid input(s): ZFEZTNEM8KM, VPXAMJWN4RB, CKY1DLDI70, TQSUFAMPWX6Z, ALYOKRKQX1LW, MFGQBWHVC3RQ No results for input(s): COLORUA, CLARITYUA, SPECGRAVUA, PHUA, PROTEINUA, BLOODUA, LEUKOCYTEUA, NITRITEUA, GLUCOSEUA, KETONEUA, BILIRUBINUA, UROBILINUA, REDSUBUA, WBCUA, RBCUA, EPITHUA, MUCUSUA, BACTUA, YEASTUA, TRICHUA in the last 09421 hours. No results for input(s): WBC, RBC, HGB, HCT, MCV, MCHC, RDW, RDWCV, PLTCOUNT, NEUTPCT, LYMPHPCT, MONOCYTPCT, EOSINPCT, BASOPHILPCT, GRANSIMMPCT, LYMPHABS, MONOCYTABS, EOSINABS, BASOABS, IMMGRANSABS, NRBCAUTO in the last 55548 hours. No results for input(s): SEDRATE in the last 20188 hours. No results for input(s): CRP in the last 22684 hours. No results for input(s): INR in the last 32683 hours. Imaging No results found. Impression: 1) Postconcussion syndrome 2) Posttraumatic headache 3) S/P Right ear infection Memory loss Rebound headache (using excedrin) Discussion: Pt had headache with dizziness, memory loss, blurry vision. Most consistent with post concussion syndrome. Mr brain 04/30 no acute stroke, visualized with patient at Clinic today. + R mastoid infection. Was treated by ENT. I made the following recommendations: 1) Nortriptyline 30mg po qhs. Add 1 Pill every one to three days to target dose as tolerated. No driving when drowsy. 2) Fish oil. 3) avoid head trauma. Fioricet prn. Advised about to avoid frequent pain medications to reduce chance of rebound headaches. Only use pain meds for severe headaches. eeg for possible seizure leading to memory loss. RTC 3 months. Accompanied by his today [...] were explained in detail, agreeable with patient. Sig. time was spent reviewing imaging and laboratory results as well as discussion of the pathophysiology of disease process, diagnostic studies and prognosis of the diagnosed condition. All pertinent questions were answered to patient's satisfaction during this clinical visit. Patient is to closely follow with primary physician for the medical needs. Thank you for involving me in Wily Bahena's care Rosa Ayala MD PhD documented in this encounter Plan of Treatment Not on file documented as of this encounter Results * EEG (06/25/2017 12:00 PM CDT) 06/25/2017 12:0 0 PM CDT Narrative Procedure Note Rosa Ayala MD - 06/25/2017 11:59 PM CDT [facility] ELECTROENCEPHALOGRAPHIC REPORT PATIENT: WILY BAHENA MR#: [id number] DATE OF SERVICE: 06/25/2017 CSN: [id number] : 1955 ROOM: REFERRING PHYSICIAN: ROSA AYALA MD ADMIT DATE: 06/25/2017 EEG was [...] asleep.No seizure activity was seen. Clinical correlation. ROSA AYALA MD XL/MODL #: [id number] ELECTROENCEPHALOGRAPHIC REPORT - DP Rosa Ayala MD NEUROLOGY ORDERABLES Performing Organization Address City/State/[facility] Co de Phone Number [facility] documented in this encounter Visit Diagnoses Diagnosis Postconcussion syndrome- Primary Memory loss Post-traumatic headache, not intractable, unspecified chronicity pattern Postconcussion syndrome Memory loss documented in this encounter
--- OUTSIDE RECORDS SUMMARY | 2024-09-03 07:51 | XMS_ITS | Encounter Summary ---
Author Organization [facility] Address [address] [place] [address] Care Team Providers Care Phlebotomist Prn Name Role Phone Unavailable Primary Care Provider Unavailabl e Reason for Visit * Reason Onset Date Comments Order 12/03/2017 Encounter Details Date Type Department Care Team (Late st Contact Info) Description 12/03/2017 Telephone [facility] [facility] [address] [phone] [place] [id number] [address] Order Social History Tobacco Use Types Packs/Day Years [...] * Telephone Encounter - Hilda Sr - 12/03/2017 2:49 PM CDT Fredo states they received the orders for on the Carotid Duplex and MRI of the Brain. They need the order to be signed by the physician, CAMP GUARD or PA, that is only way they will except the order. Pleasere-faxed the orders with the signature. Please advise. documented in this encounter Plan of Treatment Not on file documented as of this encounter Visit Diagnoses Not on filedocumented in this encounter
--- OUTSIDE RECORDS SUMMARY | 2024-09-03 07:51 | XMS_ITS | Encounter Summary ---
Author Organization [facility] Address [address] [place] [address] Care Team Providers Care Social Insurance Adviser Name Role Phone Unavailable Primary Care Provider Unavailabl e Reason for Visit * Reason Comments Follow-up Encounter Details Date Type Department Care Team (Latest Contact Info) Description 12/02/2017 11:40 AM CDT Office Visit [facility] Neurosciences [address] [facility] [address] [place] [phone] [place] [id number] [id number] Postconcussion syndrome (Primary Dx); Post-traumatic headache, not intractable, unspecified chronicity pattern; Fall, subsequent encounter; Benign essential tremor; Vision loss Social History Tobacco Use Types Packs/Day [...] Sign Reading Time Taken Comments Blood Pressure 116/82 12/02/2017 11:56 AM CDT Pulse 99 12/02/2017 11:56 AM CDT Temperature - - Respiratory Rate 16 12/02/2017 11:56 AM CDT Oxygen Saturation 97% 12/02/2017 11:56 AM CDT Inhaled Oxygen Concentration - - Weight 100.7 kg (222 lb) 12/02/2017 11:56 AM CDT Height 180.3 cm (5' 11 ) 12/02/2017 11:56 AM CDT Body Mass Index 30.96 12/02/2017 11:56 AM CDT documented in this encounter Patient Instructions * Patient Instructions* Maria Del Carmen Martines - 12/02/2017 12:37 PM CDT Call physician if symptoms worsen or with any questions. Take Medications as prescribed. For descriptions of a variety of neurological conditions please visit: [email or web address] Contact scheduling department to schedule VAS carotid test at [phone]. documented in this encounter Progress Notes * Rosa Chow MD - 12/02/2017 12:00 PM CDT 12/02/2017 Wily Bhaena 62 y.o. Referring Physician: Dr. Suman Monique, DO Chief Complaint: Chief Complaint Patient presents with ??? Follow-up HPI: Wily Mclaughlin gary 62 y.o. came for follow up of headache when he fell backward hitting his head with a laceration. He had 3 falls since last visit. He did not pass-out. He is to have neck surgery byDrJeff Pruvtere. He lost bilateral vision for about a few seconds last Thursday, and he was evaluated byophthalmologist. The headache is on the frontal area, up to 3-9/10, aching pain without nausea, light and sound sensitivity. He had some memory loss. He still had dizziness with lightheadedness and blurry vision. He had some tremor of both hands since the first fall affecting him eating soup. The patient denies weakness, numbness, double-vision, slurred speech, incontinence of bowel bladder.He was notified about her MR c spine. There is no seizure-like events, no tongue biting.He is off work now. Past Medical History: Diagnosis Date ??? Depression ??? Gout ??? Kidney stones Past Surgical History: Procedure Laterality Date ??? Hernia Repair 1973 Current Outpatient Prescriptions Medication Sig Dispense Refill ??? nortriptyline (PAMELOR) 10 MG capsule Take 3 capsules by mouth at bedtime 90 capsule 4 ??? VYVANSE 50 MG capsule Take 50 [...] once daily Reasons: Centrium Silver 50+ ??? 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 Smoking status: [...] Prostate Brother Current Outpatient Prescriptions Medication ??? nortriptyline (PAMELOR) 10 MG capsule ??? VYVANSE 50 MG capsule ??? meclizine (ANTIVERT) 25 MG tablet ??? testosterone cypionate (DEPO-TESTOTERONE) 200 MG/ML injection ??? Multiple Vitamin (MULTI VITAMIN DAILY PO) ??? mpsffwzpfc-pvwhmpxocwoei-rispviqh (FIORICET) 50-300-40 MG capsule ??? allopurinol (ZYLOPRIM) 300 MG tablet ??? aMILoride-hydroCHLOROthiazide (MODURETIC) 5-50 MG tablet ??? sertraline (ZOLOFT) 100 MG tablet No current facility-administered medications for this visit. EXAMINATION: Ht 1.803 m (5' 11 ) Wt 100.7 kg (222 lb) BMI 30.96 kg/m2 General: General appearance: well developed, in [...] to light touch, temperature. Coordination/Cerebellar: Intact to ijknhf-plvk-hgwrxr. Reflex; 2+ bl KJs, Biceps, AJs. Gait: walks heel and toe without difficulty, normal tandem gait and Romberg test. Station: steady. Imaging/Laboratory review: No results for input(s): SODIUM, POTASSIUM, CHLORIDE, CO2, BUN, CREATININE, GLUCOSE, CALCIUM in thelast 87512 hours. No results for input(s): WBC, HGB, HCT, PLTCOUNT in the last 20663 hours. Recent Labs Component Name 07/01/17 1325 TSH 1.04 Recent Labs Component Name 07/01/17 1325 CK 54 No results for input(s): PHENYTOIN in the last 50253 hours. No results for input(s): VPA in the last 27751 hours. No results for input(s): ALBUMIN, ALKPHOS, ALT, AST, TBIL, DBIL, TPROT in the last 24781 hours. No results for input(s): CHOL, TRIG, HDL, LDLCALC, LDLDIRECT in the last 69075 hours. No results for input(s): HGBA1C in the last 64517 hours. No results for input(s): AMVVUCDF13 in the last 37479 hours. No results for input(s): AMMONIA in the last 71457 hours. No results for input(s): HHTMWGNLY0MK, SZZFSAVXWX2O, NGXKGTMYOH3U, FCMWKN2EJ, TIJARGNVNA5K in the last 43560 hours. Invalid input(s): IGSYVATC4LS, CNHODXOY1HQ, TTC1LMED52, VKOWZMMFWG7J, GCTSHWCAP6XO, JPRQNUULW0WU No results for input(s): COLORUA, CLARITYUA, SPECGRAVUA, PHUA, PROTEINUA, BLOODUA, LEUKOCYTEUA, NITRITEUA, GLUCOSEUA, KETONEUA, BILIRUBINUA, UROBILINUA, REDSUBUA, WBCUA, RBCUA, EPITHUA, MUCUSUA, BACTUA, YEASTUA, TRICHUA in the last 36324 hours. No results for input(s): WBC, RBC, HGB, HCT, MCV, MCHC, RDW, RDWCV, PLTCOUNT, NEUTPCT, LYMPHPCT, MONOCYTPCT, EOSINPCT, BASOPHILPCT, GRANSIMMPCT, LYMPHABS, MONOCYTABS, EOSINABS, BASOABS, IMMGRANSABS, NRBCAUTO in the last 94762 hours. No results for input(s): SEDRATE in the last 48049 hours. No results for input(s): CRP in the last 79856 hours. No results for input(s): INR in the last 87502 hours. Imaging No results found. Impression: 1) Postconcussion syndrome 2) Posttraumatic headache 3) S/P Right ear infection Syncope Memory loss Rebound headache (using excedrin) Essential Tremor Vision loss Stress Discussion: Had 3 fall since last visits. Now c/o tremor with difficulty eating, most c/w essential tremor. Also had vision loss x2. Pt had headache with dizziness, memory loss, blurry vision. Most consistent with post concussion syndrome. Mr brain 04/30 no acute stroke, visualized with patient at Clinic today. + R mastoid infection. Was treated by ENT. eeg reports normal. CT brain visualized no acute intracranial process. CT angiogram: no significant carotid stenosis. Some cervical spinal stenosis. I made the following recommendations: Inderal 60mg po daily if ok pcp. f-u Dr. He. MR brain for vision loss. Carotid duplex for vision loss. Try to increase Nortriptyline 30mg po qhs (20mg qhs now) Add 1 Pill every one to three days to target dose as tolerated. No driving when drowsy. Fish oil. avoid head trauma. Fioricet prn. Advised about to avoid frequent pain medications to reduce chance of rebound headaches. Only use pain meds for severe headaches. RTC 3 months. Accompanied by his . [...] Thank you for involving me in Wily Magdalena Shruti's care Rosa Chow MD PhD documented in this encounter Plan of Treatment Not on file documented as of this encounter Visit Diagnoses Diagnosis Postconcussion syndrome- Primary Post-traumatic headache, not intractable, unspecified chronicity pattern Fall, subsequent encounter Benign essential tremor Essential and other specified forms of tremor Vision loss Unspecified visual loss documented in this encounter
--- OUTSIDE RECORDS SUMMARY | 2024-09-03 07:52 | XMS_ITS | Encounter Summary ---
Author Organization [facility] Address [address] [place] [address]. 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 Gender Identity Not on file Sexual Orientation Not on file documented as of this encounter Plan of Treatment Upcoming Encounters Date Type Department Care Team (Late st Contact Info) Description 09/10/2024 11:30 AM MUSIC THEORY TEACHER Appointment [facility] [address] [place] [address] Zay Juá[place] [address] [phone] 10/25/2024 9:20 AM MUSIC THEORY TEACHER Office Visit [facility] Family & Internal [facility] - [place] [address] [place] [address] Johnathon Braga DO [address] [place] [address] 11/21/2024 9:40 AM CDT Office Visit [facility] - [facility] [address], [address] [place] [address] Shelli Gonzalez MD [address] [place] [address] documented as of this encounter Procedures Procedure Name Priority Date/Time Associated Diagnosis Comments OUTSIDE LAB (SCAN ORDER) 07/02/2023 documented in this encounter Results * OUTSIDE LAB (SCAN ORDER) (07/02/2023) 07/02/2023 us Doc Med Group Scanned SCANNING Final Resu lt documented in this encounter Visit Diagnoses Not on filedocumented in this encounter Additional Health Concerns Assessment Noted Time PHQ-9 Depression Total Score: 4 02/20/20 23 1:21 PM CDT documented as of this encounter Care Teams Stock Counter Relationship Specialty Start Date End Date Johnathon Braga DO [address] [place] [address] PCP - General FAMILY PRACTICE 10/31/20 documented as of this encounter
--- OUTSIDE RECORDS SUMMARY | 2024-09-03 07:52 | XMS_ITS | Encounter Summary ---
Author Organization [facility] Address [address] [place] [address]. 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 No / Unsure 02/19/2023 1:12 PM CDT documented as of this encounter Plan of Treatment Upcoming Encounters Date Type Department Care Team (Late st Contact Info) Description 09/10/2024 11:30 AM HEARING STENOGRAPHER Appointment [facility] [address] [place] [address] Zay Juárez [place] [address] [facility] [address] [place] [phone] 10/25/2024 9:20 AM HEARING STENOGRAPHER Office Visit [facility] Family & Internal Medicine - [place] [address] [place] [phone] Johnathon Braga DO [address] [place] [address] 11/21/2024 9:40 AM CDT Office Visit [facility] Multispecialty Care - [facility] [address] [facility], [address] [place] [phone] Shelli Gonzalez MD [address] [place] [address] documented as of this encounter Procedures Procedure Name Priority Date/Time Associated Diagnosis Comments IMAGE GENERIC 03/04/2023 documented in this encounter Results * IMAGE GENERIC (03/04/2023) Anatomical Region Laterality Modality Other 03/04/2023 us Doc Med Group Scanned SCANNING Final Resu lt documented in this encounter Visit Diagnoses Not on filedocumented in this encounter Additional Health Concerns Assessment Noted Time PHQ-9 Depression Total Score: 4 02/20/20 23 1:21 PM CDT documented as of this encounter Care Teams Customer Project Manager Relationship Specialty Start Date End Date Johnathon Braga DO [address] [place] [id number] PCP - General FAMILY PRACTICE 10/31/20 documented as of this encounter
--- OUTSIDE RECORDS SUMMARY | 2024-09-03 07:52 | XMS_ITS | Encounter Summary ---
Author Organization [facility] Address [address] [place] [address]. 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 [address] [place] [address] Zay Juárez [place] [address] [phone] 10/25/2024 9:20 AM DIETITIAN HELPER Office Visit [facility] Family [facility] Internal Medicine - [place] [address] [place] [address] Johnathon Braga DO [address] [place] [address] 11/21/2024 9:40 AM CDT Office Visit [facility] Multispecialty Care - [facility] [address] [facility], [address] [place] [address] Shelli Gonzalez MD [address] [place] [address] documented as of this encounter Visit Diagnoses Not on filedocumented in this encounter Additional Health Concerns Assessment Noted Time PHQ-9 Depression Total Score: 4 02/20/20 23 1:21 PM CDT documented as of this encounter Care Teams Composite Engineer Relationship Specialty Start Date End Date Johnathon Braga DO [address] [place] [id number] PCP - General FAMILY PRACTICE 10/31/20 documented as of this encounter
--- OUTSIDE RECORDS SUMMARY | 2024-09-03 07:52 | XMS_ITS | Encounter Summary ---
Author Organization [facility] Address [address] [place] [address]. 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 Gender Identity Not on file Sexual Orientation Not on file documented as of this encounter Plan of Treatment Upcoming Encounters Date Type Department Care Team (Late st Contact Info) Description 09/10/2024 11:30 AM SURGICAL FORCEPS FABRICATOR Appointment [facility] [address] [place] [address] Zay Juárez MD [address] [place] [phone] 10/25/2024 9:20 AM SURGICAL FORCEPS FABRICATOR Office Visit [facility] Family & Internal Medicine [address] [phone] Johnathon Braga DO [address] [place] [address] 11/21/2024 9:40 AM CDT Office Visit [facility] Multispecialty Care - [facility] [address] [facility], [address] [place] [address] Shelli Gonzalez MD [address] [place] [address] documented as of this encounter Visit Diagnoses Not on filedocumented in this encounter Additional Health Concerns Assessment Noted Time PHQ-9 Depression Total Score: 4 07/20/20 23 11:48 AM SURGICAL FORCEPS FABRICATOR documented as of this encounter Care Teams Claims Adjuster Relationship Specialty Start Date End Date Johnathon Braga DO [address] [place] [address] PCP - General FAMILY PRACTICE 10/31/20 documented as of this encounter
--- OUTSIDE RECORDS SUMMARY | 2024-09-03 07:52 | XMS_ITS | Encounter Summary ---
Author Organization [facility] Address [address] [place] [address]. [place] [address] [place] [address] Care Team Providers Care Bottom Painter Name Role Phone Johnathon Braga DO Primary Care Provider + Reason for Visit * Auth/Cert Specialty Diagnoses / Procedures Referred By Contac t Referred To Contact Diagnoses Umbilical hernia without obstruction or gangrene K42.9 umbilical hernia without obstruction or gangrene Procedures RPR AA HRN [facility] 3-10 [facility] HERNIORRHAPHY [place] Zay Juá[place] [address] [facility] [address] [place] [address] Phone: tel: fax: Referral ID Status Reason Start Date Expiration Date Visits Re quested Visits Authorized [id number] 1 1 Encounter Details Date Type Department Care Team (Late st Contact Info) Description 04/21/2024 8:30 AM CDT Anesthesia Event [facility] [id number] [place] [address] Jamilah Huerta CRNA [address] [facility] [address] [place] [address] Lynn Vail CRNA [address] [place] [address] Anesthesia Record Procedure Summary Procedure Name Responsible Anesthesiologist Anesthesia Start Time Anesthesia Stop Time Umbilical Hernia Repair (Abdomen) Jamilah Huerta CRNA 04/21/24 0830 04/21/24 0952 Events Date Time Event Comment 04/21/2024 0733 0733 AN BURIAL VAULT DELIVERER AND INSTALLER Prepped 0830 An Start Patient ID and consent checked and patient reassessed. 0830 An Start Data 0830 AN Immediate Reassess The pa tient was reevaluated immediately before sedation or regional anesthesia. 0835 An Induction The patient was reevaluated immediately before moderate or deep sedation use and before anesthesia induction. 0836 An Intubation 0847 Anesthesia Ready 0946 An Extubation 0952 An Stop 0952 an stop data Meds Name Total lidocaine (PF) (XYLOCAINE) 1% injection 50 mg propofol (DIPRIVAN) 200 mg/20 mL injecti on 200 mg succinylcholine (ANECTINE) 20 mg/mL inje ction 140 mg dexamethasone (DECADRON) 4 mg/mL injecti on 4 mg fentaNYL (SUBLIMAZE) 100 mcg/2 mL inject ion 100 mcg ePHEDrine injection 50 mg glycopyrrolate (ROBINUL) 0.2 mg/mL injec tion 0.4 mg rocuronium (ZEMURON) 50 mg/5 mL injectio n 20 mg ceFAZolin (ANCEF) 2 g in sterile water 2 0 mL IV 2 g albuterol 108 mcg/act inhaler 4 puff sodium chloride 0.9% infusion 0 mL * Agents Name Inspired Sevoflurane Sevoflurane * Blood No blood administrations on file. Lines, Drains, and Airways Type Details Placement Removal ETT Placement Date: 05/07; Placement Time: 0946; Endotracheal: Oral; Extubation Assessment: Alert, Tolerated well, Patient spontaneously breathing, Suctioned; Removal Person: BURIAL VAULT DELIVERER AND INSTALLER; Removal Reason: End of Case 04/21/24 0946 by Jamilah Huerta CRNA Peripheral IV Placement Date: 05/07; Placement Time: 0745; Placed Outside of This Facility?: No; Size: 20 G; Orientation: Distal, Right; Site Prep: Chlorhexidine; Inserted By: Sanjiv/Pérez; Insertion attempts: 3; Removal Date: 04/21/24; Removal Time: 1139; Removal Reason: Patient Discharged 04/21/24 0745 by Emerald Ortez RN 04/21/24 1139 by Emerald Ortez RN ETT Placement Date: 05/07; Placement Time: 0841; Mask Ventilate: Prior to intubation, Easy; Size (mm) : (10); Endotracheal: Oral; Blade Type: Other (comment); Placement Method: Video Laryngoscope (see comments); View Grade: 1; Viewable Anatomy: Vocal cords; Insertion Attempts: 1; Placement Verified By: Capnography, Auscultation, Chest Rise; Placed By: MEGHAN; Removal Date: 04/21/24; Removal Time: 95104/21/24 08 by Jamilah Huerta CRNA 04/21/24 0952 by Jamilah Huerta CRNA Surgical/Incision 04/21/24; 921; Surg ical Wound; Abdomen; Other (Comment); DRESSING HONEYCOMB 15 X 10 CM (x1), ADHESIVE DERMABOND (x1); 04/21/24; 1359 04/21/24 09 by Batsheva Chun RN 04/21/24 135 by Automatic Discharge Provider documented in this encounter Social History Tobacco Use Types Packs/Day [...] on file Legal Sex Male 11:26 AM LEAD DATABASE ADMINISTRATOR Gender Identity Not on file Sexual Orientation Not on file documented as of this encounter OR Notes * Anesthesia Postprocedure Evaluation - Jamilah Huerta CRNA - 04/21/2024 10:00 AM CDT Anesthesia Post-op Note Wily Cauble Procedure(s): Umbilical Hernia Repair (Abdomen) Anesthesia type: general Vitals: 04/21/24 09 BP: (!) 140/81 Vitals: 04/21/24 09 Pulse: 64 Vitals: 04/21/24954 Resp: 18 Vitals: 04/21/24 0733 Temp: 36.6 ??C Vitals: 04/21/24954 SpO2: 91% Patient Location: PACU Level of Consciousness: awake, alert and oriented Pain Management: adequate analgesia Airway Patency: patent Respiratory Status: acceptable Cardiovascular Status: acceptable Post-Op Nausea: none There were no known notable events for this encounter. * Anesthesia Preprocedure Evaluation - Jamilah Huerta CRNA - 04/14/2024 11:28 AM CDT Anesthesia ROS/MED History Reviewed: Patient summary , Nursing notes , ECG, Family history anesthesia, Anesthesia history , Medications , Labs Pre-Anesthetic State: alert, awake and responds appropriately Pulmonary (+) sleep apnea Cardiovascular Exercise tolerance:good (+) hypertension ROS comment: INUS BRADYCARDIA Compared to ECG 12/03/2020 13:26:41 Sinus rhythm no longer present Neuro/Psych (+) depression, headaches, dementia Substance Use GI/Hepatic/Renal (+) renal disease, (Renal Calculi) Endo/Other (+) diabetes mellitus, (well controlled), (Using Oral hypoglycemic), obese GENERAL COMMENTS Hx ROSEMARIE. Retested but follow up from Drs office not received per H/O anger issues per chart. Denies issues waking up from anesthesia. Previous neck surgery-limiited ROM Recent fx left ankle. Weight bearing now NPO Status: Physical Evaluation Airway Mallampati: III TM Distance: >3 FB Neck ROM: limited extension Dental (chipped) Pulmonary Pulmonary exam normal Breath sounds clear to auscultation Cardiovascular Rhythm: regular Cardiovascular exam normal Other findings: Multiple tiny chips teeth STOP-Bang Assessment: Anesthesia Plan ASA 3 Intravenous Induction Anesthesia type: general Plan for Airway: ETT and video laryngoscope Informed Consent Anesthetic plan and risks discussed with patient of whom consent was obtained. Consent of blood products not discussed. . documented in this encounter Plan of Treatment Upcoming Encounters Date Type Department Care Team (Late st Contact Info) Description 09/10/2024 11:30 AM LEAD DATABASE ADMINISTRATOR [facility] [address] [place] [address] Zay Juá[place] [address] [facility] [address] [place] [address] 10/25/2024 9:20 AM LEAD DATABASE ADMINISTRATOR Office Visit [facility] Family & Internal Medicine - [address] [phone] Johnathon Braga DO [address] [place] [address] 11/21/2024 9:40 AM CDT Office Visit [facility] Multispecialty Care - [address], [address] [place] [phone] Shelli Gonzalez MD [address] [place] [address] documented as of this encounter Visit Diagnoses Not on filedocumented in this encounter Administered Medications Inactive Administered Medications - up to 3 most recent administrations Medication Order MAR Action Action Date Dose Rate Site albuterol sulfate HFA 108 (90 Base) MCG/ACT inhaler Inhalation, PRN, Starting on Darleen 04/21/24 at 0905, Until Darleen 04/21/24 at 0952, Anesthesia Intra-Op Given 04/21/2024 9:05 AM CDT 4 puffs ceFAZolin (ANCEF) 2 g in sterile water 20 mL IV 2 g, Intravenous, at 240 mL/hr, Once, 1 dose, On Darleen 04/21/24 at 0845 New Bag 04/21/2024 9:05 AM CDT 2 g dexamethasone (DECADRON) injection Intravenous, PRN, Starting on Darleen 04/21/24 at 0912, Until Darleen 04/21/24 at 0952, Anesthesia Intra-Op Given 04/21/2024 9:12 AM CDT 4 mg ePHEDrine injection Intravenous, PRN, Starting on Darleen 04/21/24 at 0846, Until Darleen 04/21/24 at 0952, Anesthesia Intra-Op Given 04/21/2024 9:02 AM CDT 15 mg Given 04/21/2024 8:56 AM CDT 15 mg Given 04/21/2024 8:52 AM CDT 10 mg fentaNYL (SUBLIMAZE) injection Intravenous, PRN, Starting on Darleen 04/21/24 at 0835, Until Darleen 04/21/24 at 0952, Anesthesia Intra-Op Given 04/21/2024 8:41 AM CDT 50 mcg Given 04/21/2024 8:35 AM CDT 50 mcg glycopyrrolate (ROBINUL) injection Intravenous, PRN, Starting on Darleen 04/21/24 at 0843, Until Darleen 04/21/24 at 0952, Anesthesia Intra-Op Given 04/21/2024 8:58 AM CDT 0.1 mg Given 04/21/2024 8:56 AM CDT 0.1 mg Given 04/21/2024 8:44 AM CDT 0.1 mg lidocaine (PF) (XYLOCAINE) 1 % injection Intravenous, PRN, Starting on Darleen 04/21/24 at 0835, Until Darleen 04/21/24 at 0952, Anesthesia Intra-Op Given 04/21/2024 8:35 AM CDT 50 mg propofol (DIPRIVAN) IV bolus Intravenous, PRN, Starting on Darleen 04/21/24 at 0835, Until Darleen 04/21/24 at 0952, Anesthesia Intra-Op Given 04/21/2024 8:35 AM CDT 200 mg rocuronium (ZEMURON) injection Intravenous, PRN, Starting on Darleen 04/21/24 at 0903, Until Darleen 04/21/24 at 0952, Anesthesia Intra-Op Given 04/21/2024 9:03 AM CDT 20 mg sodium chloride 0.9% infusion at 10 mL/hr, Intravenous, Continuous, Starting on Darleen 04/21/24 at 0745, Until Darleen 04/21/24 at 1359, Infuse at TKO rate. Use mini-drip tubing for ESRD patients., Pre-Op Continued by Anesthesia 04/21/2024 8:30 AM CDT 10 mL/hr New Bag 04/21/2024 7:56 AM CDT 10 mL/hr succinylcholine (ANECTINE) injection Intravenous, PRN, Starting on Darleen 04/21/24 at 0835, Until Darleen 04/21/24 at 0952, Anesthesia Intra-Op Given 04/21/2024 8:35 AM CDT 140 mg documented in this encounter Additional Health Concerns Assessment Noted Time PHQ-9 Depression Total Score: 4 07/20/20 23 11:48 AM LEAD DATABASE ADMINISTRATOR documented as of this encounter Care Teams Bottom Painter Relationship Specialty Start Date End Date Johnathon Braga DO [address] [place] [address] PCP - General FAMILY PRACTICE 10/31/20 documented as of this encounter
--- OUTSIDE RECORDS SUMMARY | 2024-09-03 07:52 | XMS_ITS | Encounter Summary ---
Author Organization [facility] Address [address] [place] [address]. [place] [address] [place] [address] Care Team Providers Care Brake Lining Driller Name Role Phone Johnathon Braga Primary Care Provider + Encounter Details Date Type Department Care Team (Latest Contact Info) Description 11/16/2023 Travel Social History Tobacco Use Types Packs/Day [...] on file Legal Sex Male 11:26 AM PROGRAM PARAPROFESSIONAL Gender Identity Not on file Sexual Orientation Not on file documented as of this encounter Plan of Treatment Upcoming Encounters Date Type Department Care Team (Late st Contact Info) Description 09/10/2024 11:30 AM PROGRAM PARAPROFESSIONAL Appointment [facility] [address] [place] [address] Zay Juárez MD [address] [place] [phone] 10/25/2024 9:20 AM PROGRAM PARAPROFESSIONAL Office Visit [facility] Family & Internal Medicine [address] [place] [address] [phone] Johnathon Braga DO [address] [place] [address] 11/21/2024 9:40 AM CDT Office Visit [facility] Multispecialty Care - [facility] [address] [facility], [address] [place] [address] Shelli Gonzalez MD [address] [place] [address] documented as of this encounter Visit Diagnoses Not on filedocumented in this encounter Additional Health Concerns Assessment Noted Time PHQ-9 Depression Total Score: 4 07/20/20 23 11:48 AM PROGRAM PARAPROFESSIONAL documented as of this encounter Care Teams Brake Lining Driller Relationship Specialty Start Date End Date Johnathon Braga DO [address] [place] [address] PCP - General FAMILY PRACTICE 10/31/20 documented as of this encounter
--- OUTSIDE RECORDS SUMMARY | 2024-09-03 07:52 | XMS_ITS | Encounter Summary ---
Author Organization [facility] Address [address] [place] [address]. 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 Gender Identity Not on file Sexual Orientation Not on file documented as of this encounter Plan of Treatment Upcoming Encounters Date Type Department Care Team (Late st Contact Info) Description 09/10/2024 11:30 AM PANTRY WORKER Appointment [facility] [address] [place], [place] [address] [place]ay [place] [address] [address] 10/25/2024 9:20 AM PANTRY WORKER Office Visit [facility] Family & Internal Medicine [address] [phone] Johnathon Braga DO [address] [place] [address] 11/21/2024 9:40 AM CDT Office Visit [facility] Multispecialty Care - [facility] [address] [facility], [address] [place] [address] Shelli Gonzalez MD [address] [place] [address] documented as of this encounter Visit Diagnoses Not on filedocumented in this encounter Additional Health Concerns Assessment Noted Time PHQ-9 Depression Total Score: 4 02/20/20 23 1:21 PM CDT documented as of this encounter Care Teams Mattress Stuffer Relationship Specialty Start Date End Date Johnathon Braga DO [facility] [place] [address] PCP - General FAMILY PRACTICE 10/31/20 documented as of this encounter
--- OUTSIDE RECORDS SUMMARY | 2024-09-03 07:52 | XMS_ITS | Encounter Summary ---
Author Organization [facility] Address [address] [place] [address]. [place], [place] [address] [place] [address] Care Team Providers Care Clinical Research Technician Name Role Phone Michael Meraz DO Primary Care Provider + Reason for Visit * Reason Onset Date Comments Medication Request 02/23/2023 Encounter Details Date Type Department Care Team (Late st Contact Info) Description 02/23/2023 Telephone [facility] Medical [facility] Family & Internal Medicine [facility] [address] [place] [address] Michael Meraz DO [address] [place], [place] [phone] Medication Request Social History Tobacco Use Types Packs/Day [...] on file Legal Sex Male 11:26 AM KEY CARRIER Gender Identity Not on file Sexual Orientation Not on file COVID-19 Exposure Response Date Recorded In the last 10 days, have yo u been in contact with someone who was confirmed or suspected to have Coronavirus/COVID-19? No / Unsure 02/19/2023 1:12 PM CDT documented as of this encounter Progress Notes * Arely Velazco MA - 02/23/2023 2:53 PM CDT Re-sending to [facility] pharmacy per Pt . * Tena Olmos - 02/23/2023 8:57 AM CDT Refill request: Wily Bahena a patient of Michael Meraz DO requests a refill of gabapentin (NEURONTIN) 600 MG tablet memantine (NAMENDA) 5 MG tablet meclizine (ANTIVERT) 25 MG tablet The patient would like this sent to the following pharmacy: [address] - [address] [facility] [address] [facility] [address] The next office visit: Next visit with MICHAEL MERAZ in FAMILY PRACTICE is on: No match found The last office visit: Last visit with MICHAEL MERAZ in FAMILY PRACTICE was on: 02/19/2023 in [facility] Additional Information: Pts. RX was sent to the wrong pharmacy and they are requesting it be sent to the above listed documented in this encounter Plan of Treatment Upcoming Encounters Date Type Department Care Team (Late st Contact Info) Description 09/10/2024 11:30 AM KEY CARRIER Appointment [facility] [address] [place] [address] Zay Juá[place] [address] [facility] [address] [place] [phone] 10/25/2024 9:20 AM KEY CARRIER Office Visit [facility] Family & Internal Medicine - [address] [phone] Michael Meraz DO [address] [place] [address] [place] [address] 11/21/2024 9:40 AM CDT Office Visit [facility] Medical [facility] Multispecialty Care - [address], [address] [place] [address] Shelli Gonzalez MD [address] [place] [address] documented as of this encounter Visit Diagnoses Diagnosis Peripheral polyneuropathy Unspecified hereditary and idiopathic peripheral neuropathy Dizziness Dizziness and giddiness Dementia with mood disturbance, unspecified dementia severity, unspecified dementia type ([facility]/HCC) documented in this encounter Additional Health Concerns Assessment Noted Time PHQ-9 Depression Total Score: 4 02/20/20 23 1:21 PM CDT documented as of this encounter Care Teams Clinical Research Technician Relationship Specialty Start Date End Date Michael Meraz DO [address] [place] [address] PCP - General FAMILY PRACTICE 10/31/20 documented as of this encounter
--- OUTSIDE RECORDS SUMMARY | 2024-09-03 07:52 | XMS_ITS | Encounter Summary ---
Author Organization [facility] Address [address] [place] [address]. [place] [address] [place] [address] Care Team Providers Care Costuming Supervisor Name Role Phone Johnathon Braga DO Primary Care Provider + Reason for Visit * Auth/Cert Specialty Diagnoses / Procedures Referred By Contac t Referred To Contact Diagnoses Umbilical hernia without obstruction or gangrene K42.9 umbilical hernia without obstruction or gangrene Procedures RPR AA HRN 3-10 [facility] [place] [address] [address] Phone: tel: fax: Referral ID Status Reason Start Date Expiration Date Visits Re quested Visits Authorized [id number] 1 1 Encounter Details Date Type Department Care Team (Late st Contact Info) Description 04/21/2024 8:30 AM CDT - 04/21/2024 10:25 AM CDT Surgery [facility] [address] [place] [address] [place] [address] [address] Umbilical Hernia Repair Surgery Details Date/Time Status Location OR Service Patient Class Case Class Case Type Trauma Case? 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 Gender Identity Not on file Sexual Orientation Not on file documented as of this encounter Last Filed Vital Signs Vital Sign Reading Time Taken Comments Blood Pressure 161/85 04/21/2024 10:23 AM CDT Pulse 52 04/21/2024 10:23 AM CDT Temperature 36.6 ??C (97.8 ??F) 04/21/2024 7:33 AM CD T Respiratory Rate 18 04/21/2024 10:23 AM CDT Oxygen Saturation 94% 04/21/2024 10:23 AM CDT Inhaled Oxygen Concentration - - Weight 104.3 kg (230 lb) 04/13/2024 2:14 PM CDT Height - - Body Mass Index 32.08 02/04/2024 2:58 PM CDT documented in this encounter Discharge Instructions * Attachments The following attachments cannot be sent through Care Everywhere. * Abdominal Hernia Discharge Instructions (Uruguayan) * General Anesthesia Discharge Instructions (Uruguayan) * How to Put On and Take Off Compression Stockings ([place]ruguayan) * How to Use an Incentive Spirometer ([place]ayan) documented in this encounter Medications at Time of Discharge Alpha-Lipoic Acid 600 MG Tab Take 1 tablet by mouth daily. cephALEXin (KEFLEX) 500 MG capsule Take 1 capsule (500 mg total) by mouth 2 (two) times daily. 14 capsule 04/21/2024 Cyanocobalamin (VITAMIN B-12) 50 MCG Tab Take 50 mcg by mouth once. fish oil 1000 MG Cap capsule Take by mouth 2 (two) times daily. gabapentin (NEURONTIN) 600 MG tabletIndications:P eripheral polyneuropathy take 1 tablet by mouth three times daily 270 tablet 01/18/2024 Glucose Blood (ACCU-CHEK GUIDE) test stripIndications:Ty pe 2 diabetes mellitus without complication, without long-term current use of insulin ([facility]) 1 strip by Other route as needed. Use once daily in the AM while fasting. 100 strip 1 11/16/2023 Glucose Blood ([employer] GLUCOSE METER TEST STRIPS) test stripIndications:Ty pe 2 diabetes mellitus without complication, without long-term current use of insulin ([facility]) 1 strip by Other route as needed. Use as instructed. Generic brand. 100 strip 3 11/26/2023 hydrOXYzine 50 MG tablet Take by mouth every 8 (eight) hours as needed. 10/29/2020 lamoTRIgine 100 MG tablet Take 1 tablet (100 mg total) by mouth 2 (two) times daily. 12/31/2020 meclizine (ANTIVERT) 25 MG tabletIndications:D izziness Take 1 tablet (25 mg total) by mouth daily as needed. 30 tablet 02/23/2023 Multiple Vitamins-Minerals (CENTRUM ADULTS OR) Take 1 tablet by mouth daily. tamsulosin 0.4 MG Cap Take 1 capsule (0.4 mg total) by mouth daily. 01/13/2022 testosterone cypionate 200 MG/ML injection Inject 1 mL (200 mg total) into the muscle every 21 days. 10/13/2020 vitamin D3, cholecalciferol, 1000 UNIT Tab tablet Take 2 tablets (2,000 Units total) by mouth daily. allopurinol (ZYLOPRIM) 300 MG tabletIndications:I diopathic gout, unspecified chronicity, unspecified site Take 1 tablet by mouth once daily 90 tablet 02/13/2023 4 atorvastatin (LIPITOR) 10 MG tabletIndications:H yperlipidemia take 1 tablet by mouth nightly at bedtime 90 tablet 02/09/2024 4 chlorthalidone (HYGROTEN) 25 MG tabletIndications:E ssential hypertension Take 1 tablet by mouth once daily 90 tablet 01/22/2024 4 donepezil (ARICEPT) 10 MG TabIndications:Bran ry loss Take 1 tablet (10 mg total) by mouth daily. 90 tablet 3 09/03/2023 4 glipiZIDE XL (GLUCOTROL XL) 5 MG 24 hr tabletIndications:T ype 2 diabetes mellitus without complication, without long-term current use of insulin ([facility]) TAKE 1 TABLET BY MOUTH ONCE DAILY WITH BREAKFAST DO NOT BREAK OR CRUSH TABLET 30 tablet 1 04/04/2024 4 Glucose Blood (ACCU-CHEK GUIDE) test stripIndications:Ty pe 2 diabetes mellitus without complication, without long-term current use of insulin ([facility]) 1 strip by Other route every morning before breakfast. Use as instructed 100 strip 1 02/18/2024 4 HYDROcodone-acetami nophen (NORCO) 5-325 MG tabletIndications:A cute Pain < 7 Day Supply Take 1-2 tablets by mouth every 6 (six) hours as needed. Indications: Acute Pain < 7 Day Supply 30 tablet 04/21/2024 4 Lancets MiscIndications:Typ e 2 diabetes mellitus without complication, without long-term current use of insulin ([facility]) 1 Lancet by Does not apply route daily as needed. Once daily. Use accu-check brand. 100 each 1 11/26/2023 4 PARoxetine (PAXIL) 20 MG tablet Take 2 tablets (40 mg total) by mouth daily. 07/09/2023 4 propranolol LA (INDERAL LA) 60 MG 24 hr capsuleIndications: Traumatic brain injury with loss of consciousness, sequela ([facility]) Take 1 capsule (60 mg total) by mouth daily. 30 capsule 11 09/03/2023 4 documented as of this encounter Progress Notes * Emerald Ortez RN - 04/21/2024 11:58 AM CDT Pt and verbalized understanding to discharge instructions. Ambulated to restroom without issues. documented in this encounter H&P Notes * Zay Truong MD - 04/21/2024 8:11 AM CDT Attending Provider: Zay Truong MD PCP: Johnathon Braga DO Wily Bahena is an 68-year-old male. Reason for Admission: Umbilical hernia without obstruction or gangrene HPI: 68 y/o WM with several year hx of pain and bulging in the umbilical area , increasing in size and causing discomfort. Past Medical History: Diagnosis Date Closed fibular fracture 04/20/2024 Dementia ([facility]) Diabetes mellitus ([facility]) Excessive anger Gout Hypertension Kidney stone Loss of hearing Numbness Post-concussional syndrome Tremor Allergies: Allergies Allergen Reactions Carbamazepine Rash and Swelling Social History Tobacco Use Smoking status: Never Smokeless tobacco: Never Tobacco comments: na Substance Use Topics Alcohol use: Never Past Surgical History: Procedure Laterality Date ANESTH,CERV SPINE,CORD SURGERY C3-7 HERNIA REPAIR 1971 LITHOTRIPSY Family History Problem Relation Name Age of Onset Cancer Mother Liver Disease Father No Known Problems Sister Prostate Cancer Brother Travel Exposure: No current facility-administered medications on file prior to encounter. Current Outpatient Medications on File Prior to Encounter Medication Sig allopurinol (ZYLOPRIM) 300 MG tablet Take 1 tablet by mouth once daily Alpha-Lipoic Acid 600 MG Tab Take 1 tablet by mouth daily. atorvastatin (LIPITOR) 10 MG tablet take 1 tablet by mouth nightly at bedtime chlorthalidone (HYGROTEN) 25 MG tablet Take 1 [...] 1 tablet by mouth three times daily lamoTRIgine 100 MG tablet Take 1 tablet (100 mg total) by mouth 2 (two) times daily. Multiple Vitamins-Minerals (CENTRUM ADULTS OR) Take 1 tablet by mouth daily. PARoxetine (PAXIL) 20 MG tablet Take 2 tablets (40 mg total) by mouth daily. propranolol LA (INDERAL LA) 60 MG 24 hr capsule Take 1 capsule (60 mg total) by mouth daily. tamsulosin 0.4 MG Cap Take 1 capsule (0.4 mg total) by mouth daily. testosterone cypionate 200 MG/ML injection Inject 1 mL (200 mg total) into the muscle every 21 days. vitamin D3, cholecalciferol, 1000 UNIT Tab tablet Take 2 tablets (2,000 Units total) by mouth daily. Blood Glucose Monitoring Suppl ([employer] GLUCOMETER) w/Device Kit 1 Device by Does not apply route once for 1 dose. Accu-check brand Glucose Blood (ACCU-CHEK GUIDE) test strip 1 strip by Other route as needed. Use once daily in the AM while fasting. Glucose Blood ([employer] GLUCOSE METER TEST STRIPS) test strip 1 strip by Other route as needed. Use as instructed. Generic brand. hydrOXYzine 50 MG tablet Take by mouth every 8 (eight) hours as needed. Lancets Misc 1 Lancet by Does not apply route daily as needed. Once daily. Use accu-check brand. meclizine (ANTIVERT) 25 MG tablet Take 1 tablet (25 mg total) by mouth daily as needed. (Patient taking differently: Take 1 tablet (25 mg total) by mouth 3 (three) times daily as needed.) Blood pressure (!) 161/67, pulse (!) 48, temperature 97.8 ??F (36.6 ??C), temperature source Temporal, resp. rate 16, weight 104.3 kg (230 lb), SpO2 96%. Review of Systems All other systems reviewed and are negative. Physical Exam Cardiovascular: Rate and Rhythm: Normal rate. Pulmonary: Effort: Pulmonary effort is normal. Breath sounds: Normal breath sounds. Abdominal: General: Abdomen is flat. There is no distension. Palpations: Abdomen is soft. There is no mass. Tenderness: There is no abdominal tenderness. There is no guarding or rebound. Hernia: A hernia is present. Comments: Moderate size umbilical hernia Assessment: Umbilical hernia Plan: Repair with mesh, open repair . Procedure explained along with risks and complications as outlined In educational pamphlet which was reviewed and given to the patient . Risks include but not limitedto Bleeding, infection, bowel injury , recurrence , mesh complications, chronic pain and numbness. Understands and wishes to proceed. ZAY RTUONG MD 04/21/2024 documented in this encounter OR Notes * Brief Op Note - Zay Truong MD - 04/21/2024 9:57 AM CDT [facility] Brief Op HSHSUmbilical Hernia Repair Procedure Note Wily Bahena 04/21/2024 0830 Procedure(s) (LRB): Umbilical Hernia Repair (N/A) Open repair umbilical hernia with mesh using 6.5 cm circular ventralex hernia patch Defect measured 3 cm Surgeon(s): Zay Truong MD Scraper Burrer: Java Support Engineer: Charley Burnham, HEEL EDGE INKER MACHINE Anesthesia: General Infiltration 20 cc 0.5 % Marcaine Pre-Op Diagnosis: K42.9 umbilical hernia without obstruction or gangrene Post-Op Diagnosis: Same Findings: Same Hernia defect 3 cm Estimated Blood Loss: Minimal Complications : None Drains: Patient transported to in satisfactory condition. Specimens: None ZAY TRUONG MD Date: 04/21/2024 Time: 9:57 AM * Op Note - Zay Truong MD - 04/21/2024 12:00 AM CDT Patient Name: WILY BAHENA Date of : 1955 Account: [id number] Facility: [facility] Location: [facility] Date of Service: 04/21/2024 Operative Note PREOPERATIVE DIAGNOSIS: Umbilical hernia. POSTOPERATIVE DIAGNOSIS: Umbilical hernia without obstruction or gangrene. Hernia defect measured 3cm. PROCEDURE DONE: Open repair of umbilical hernia with mesh using a 6.5 cm circular Ventralex hernia patch. SURGEON: Zay Truong Jr., MD. PATROL SERGEANT: Charley Burnham. ANESTHESIA: General with infiltration of 20 mL of 0.5% Marcaine at completion of procedure. COMPLICATIONS: None. DRAINS: None. ESTIMATED BLOOD LOSS: Minimal. DISPOSITION: The patient transported to recovery room in satisfactory condition. INDICATIONS FOR PROCEDURE: A 68-year-old white male who presented with a several-year history of pain and bulging in the umbilical area. Most recently over the last several months, it has increased in size and caused more discomfort. He was admitted for repair of umbilical hernia. The procedure was explained to the patient in detail along with alternatives, risks and complications as outlined inour educational pamphlet, which was reviewed and given to the patient. Risks include, but not limited to bleeding, infection, bowel injury, recurrence, mesh complications, chronic pain and numbness. The patient understood the risks and wished to proceed. DESCRIPTION OF PROCEDURE: The area was prepped and draped in the usual manner. Infraumbilical incision was made. Dissection was carried down to the fascia. Hernia was identified. Hernia was opened. Contents within the hernia were reduced and returned into the intraabdominal cavity, which consisted mostly of preperitoneal fat. The fascia was isolated superiorly and inferiorly. The repair was then done with a 6.5 cm Ventralex hernia patch secured in place using interrupted sutures of 0 Ethibond. The overlying fascia was closed with interrupted sutures of 0 Ethibond. The area was irrigated with saline and Ancef. The subcutaneous was closed with 2-0 Vicryl. It was infiltrated with 20 mL of 0.5%Marcaine. Closure of the skin was done with subcuticular 4-0 Monocryl and Dermabond. Sponge count, instrument count and needle count was correct. The patient tolerated the procedure well and he was transported to recovery room in satisfactory condition. 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 Office Visit [facility] Family [facility] Internal Medicine [address] [phone] Johnathon Braga DO [address] [place] [id number] 11/21/2024 9:40 AM CDT Office Visit [facility] Multispecialty [facility] - [facility] [address] [facility], [address] [place] [phone] Shelli Gonzalez MD [address] [place] [address] documented as of this encounter Procedures Procedure Name Priority Date/Time Associated Diagnosis Comments RPR AA HRN 1ST 3-10 [facility] 04/21/2024 8:14 AM CDT Umbilical hernia without obstruction or gangrene Case Notes C POCT GLUCOSE - LOUIS DOCKED DEVICE Routine 04/21/2024 7:44 AM CDT documented in this encounter Results * (ABNORMAL) POCT glucose (04/21/2024 7:44 AM CDT) GLUCOSE POC 118(H) 70 - 110 mg/dL 04/21/2024 8:48 AM CDT [facility] 04/21/2024 7:44 AM CDT us Zay Truong MD POCT ORDERABLES - DEVICE Final R esult [facility] [address] [place] [address], [place] [phone] documented in this encounter Visit Diagnoses Diagnosis Umbilical hernia without obstruction or gangrene- Primary Umbilical hernia without mention of obstruction or gangrene Umbilical hernia without obstruction or gangrene Umbilical hernia without mention of obstruction or gangrene Umbilical hernia without obstruction or gangrene Umbilical hernia without mention of obstruction or gangrene documented in this encounter Admitting Diagnoses Diagnosis Umbilical hernia without obstruction or gangrene Umbilical hernia without mention of obstruction or gangrene documented in this encounter Administered Medications Inactive Administered Medications - up to 3 most recent administrations Medication Order MAR Action Action Date Dose Rate Site BUpivacaine 0.5 % (MARCAINE) 0.5 % injection As needed, Starting on Darleen 04/21/24 at 0941, Until Darleen 04/21/24 at 0952, Intra-Op Given 04/21/2024 9:41 AM CDT 20 mLs Operative Site ceFAZolin (ANCEF) 1 g in sodium chloride 0.9 % 1,000 mL irrigation solution As needed, Starting on Darleen 04/21/24 at 0909, Until Darleen 04/21/24 at 0952, Intra-Op Given 04/21/2024 9:09 AM CDT famotidine (PF) (PEPCID) injection 20 mg 20 mg, Intravenous, Once, 1 dose, On Darleen 04/21/24 at 0745, On admission IV Push over 2 minutes, Pre-Op Given 04/21/2024 7:57 AM CDT 20 mg HYDROcodone-acetamino phen (NORCO) 5-325 MG tablet 1 tablet 1 tablet, Oral, Once, 1 dose, On Darleen 04/21/24 at 1130, Maximum dose of acetaminophen is 4000 mg from all sources in 24 hours. Given 04/21/2024 11:15 AM CDT 1 tablet ondansetron (ZOFRAN) injection 4 mg 4 mg, Intravenous, Once, 1 dose, On Darleen 04/21/24 at 0745, On admission, Pre-Op Given 04/21/2024 7:57 AM CDT 4 mg sodium chloride 0.9% infusion at 10 mL/hr, Intravenous, Continuous, Starting on Darleen 04/21/24 at 0745, Until Darleen 04/21/24 at 1359, Infuse at TKO rate. Use mini-drip tubing for ESRD patients., Pre-Op Continued by Anesthesia 04/21/2024 8:30 AM CDT 10 mL/hr New Bag 04/21/2024 7:56 AM CDT 10 mL/hr documented in this encounter Active and Recently Administered Medications Times are shown in CDT. Scheduled Medication Order 04/19/2024 04/20/2024 04/21/2024 ceFAZolin (ANCEF) 2 g in sterile water 20 mL IV (COMPLETED) 2 g, Intravenous, at 240 mL/hr, Once, 1 dose, On Darleen 04/21/24 at 0845 0905 (New Bag - Prov ider: Jamilah Huerta CRNA) famotidine (PF) (PEPCID) injection 20 mg (COMPLETED) 20 mg, Intravenous, Once, 1 dose, On Darleen 04/21/24 at 0745, On admission IV Push over 2 minutes, Pre-Op 0757 (Given - Provid er: Emerald Ortez RN) HYDROcodone-acetaminophen (NORCO) 5-325 MG tablet 1 tablet (COMPLETED) 1 tablet, Oral, Once, 1 dose, On Darleen 04/21/24 at 1130, Maximum dose of acetaminophen is 4000 mg from all sources in 24 hours. 1115 (Given - Provid er: Emerald Ortez RN) ondansetron (ZOFRAN) injection 4 mg (COMPLETED) 4 mg, Intravenous, Once, 1 dose, On Darleen 24 at 0745, On admission, Pre-Op 0757 (Given - Provid er: Emerald Ortez RN) Continuous Medication Order 04/19/2024 04/20/2024 04/21/2024 sodium chloride 0.9% infusion at 10 mL/hr, Intravenous, Continuous, Starting on Darleen 04/21/24 at 0745, Until Darleen 04/21/24 at 1359, Infuse at TKO rate. Use mini-drip tubing for ESRD patients., Pre-Op 0756 (New Bag - Prov ider: Emerald Ortez RN)0830 (Continued by Anesthesia - Provider: Jamilah Huerta CRNA)1108 (Infusion Stop Time - Provider: Emerald Ortez, NILAY) PRN Medication Order 04/19/2024 04/20/2024 04/21/2024 BUpivacaine 0.5 % (MARCAINE) 0.5 % injection (CANCELED) As needed, Starting on Darleen 04/21/24 at 0941, Until Darleen 04/21/24 at 0952, Intra-Op 09 (Given - Provid er: Zay Truong MD) ceFAZolin (ANCEF) 1 g in sodium chloride 0.9 % 1,000 mL irrigation solution (CANCELED) As needed, Starting on Darleen 04/21/24 at 0909, Until Darleen 04/21/24 at 0952, Intra-Op 09 (Given - Provid er: Zay Truong MD) documented in this encounter Additional Health Concerns Assessment Noted Time PHQ-9 Depression Total Score: 4 07/20/20 23 11:48 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
--- OUTSIDE RECORDS SUMMARY | 2024-09-03 07:52 | XMS_ITS | Encounter Summary ---
Author Organization [facility] Address [address] [place] [address]. [place], [place] [address] [place] [address] Care Team Providers Care Nitriles Lab Technician Name Role Phone Johnathon Braga DO Primary Care Provider + Reason for Visit * Reason Comments Umbilical Hernia Consult for umbilica l hernia repair * Surgical (Urgent) - Authorized Specialty Diagnoses / Procedures Referred By Contac t Referred To Contact SURGERY Diagnoses Umbilical hernia without obstruction and without gangrene Procedures OFFICE/OUTPATIENT NEW LOW MDM 30-44 MINUTES OFFICE/OUTPT VISIT,NEW,LEVL IV OFFICE/OUTPT VISIT,NEW,LEVL V OFFICE/OUTPT VISIT,EST,LEVL III OFFICE/OUTPT VISIT,EST,LEVL IV OFFICE/OUTPT VISIT,EST,LEVL V Johnathon Braga DO [address] [place] [address] Phone: tel: fax: [facility] Surgery [address], [address] [place] [phone] Phone: tel: fax: Referral ID Status Reason Start Date Expiration Date V isits Requested Visits Authorized [id number] Authorized 01/12/2024 02/11/2025 99 99 Encounter Details Date Type Department Care Team (Late st Contact Info) Description 02/04/2024 3:00 PM CDT Office Visit [facility] [address], [address] [place] [address] [place] [id number] [address] Umbilical Hernia (Consult for umbilical hernia repair) Social History Tobacco Use Types Packs/Day Years [...] on file Legal Sex Male 11:26 AM SHIPPING SUPPORT CLERK Gender Identity Not on file Sexual Orientation Not on file documented as of this encounter Last Filed Vital Signs Vital Sign Reading Time Taken Comments Blood Pressure 113/73 02/04/2024 2:58 PM CDT Pulse 59 02/04/2024 2:58 PM CDT Temperature 36.9 ??C (98.5 ??F) 02/04/2024 2:58 PM CD T Respiratory Rate 18 02/04/2024 2:58 PM CDT Oxygen Saturation 94% 02/04/2024 2:58 PM CDT Inhaled Oxygen Concentration - - Weight 101.4 kg (223 lb 9.6 oz) 02/04/2024 2:58 PM CDT Height 180.3 cm (5' 11 ) 02/04/2024 2:58 PM CDT Body Mass Index 31.19 02/04/2024 2:58 PM CDT documented in this encounter Progress Notes * Zay Truong MD - 02/04/2024 3:00 PM CDT Reason for Visit: Umbilical Hernia (Consult for umbilical hernia repair) History of Present Illness: 68 y/o WM presents with a several month hx of pain and bulging umbilical area , increasing in size and causing more discomfort. ROS: Review of Systems All other systems [...] times daily, Disp: 270 tablet, Rfl: 0 lamoTRIgine 100 MG tablet, Take 1 tablet [...] Rfl: PARoxetine (PAXIL) 20 MG tablet, Take 1 tablet (20 mg total) by mouth daily., Disp: , [...] Accu-check brand, Disp: 1 kit, Rfl: 0 glipiZIDE XL 5 MG 24 hr tablet, Take 1 tablet (5 mg total) by mouth daily with breakfast. Do not break or crush tablet, Disp: 30 tablet, Rfl: 2 Glucose Blood (ACCU-CHEK GUIDE) test strip, 1 strip by Other route as needed. Use once daily in theAM while fasting., Disp: 100 strip, Rfl: 1 Glucose Blood ([employer] GLUCOSE METER TEST STRIPS) test strip, 1 strip by Other route as needed. Use as instructed. Generic brand., Disp: 100 strip, Rfl: 3 hydrOXYzine 50 MG tablet, Take by mouth every 8 (eight) hours as needed., Disp: , Rfl: Lancets Misc, 1 Lancet by Does not apply route daily as needed. Once daily. Use accu-check brand., Disp: 100 each, Rfl: 1 Review of patient's allergies indicates: Allergen Reactions Carbamazepine Rash and Swelling Past Medical History: Diagnosis Date Dementia ([facility]/HCC [facility]/HCC) Excessive anger Gout Hypertension Kidney stone Loss of hearing Numbness Post-concussional syndrome Tremor Past Surgical History: Procedure Laterality Date ANESTH,CERV SPINE,CORD SURGERY HERNIA REPAIR 1971 LITHOTRIPSY Social History Socioeconomic History Marital status: Tobacco Use Smoking status: Never Smokeless tobacco: Never Tobacco comments: na Vaping Use Vaping status: Never Used Substance and Sexual Activity Alcohol use: Never Drug use: Never Social Determinants of Health Food Insecurity: No Food Insecurity (07/15/2023) Received from [place] [place] and [facility] Food Insecurity Social/Environmental Concerns: No concerns Transportation Needs: No Transportation Needs (07/15/2023) Received from [place] [place] [facility] Transportation Needs Social/Environmental Concerns: No concerns Intimate Partner Violence: Not At Risk (07/02/2023) Received from [place] [place] and [facility] Intimate Partner Violence Are you in a relationship with someone who hurts you emotionally and/or physically?: No Housing Stability: Low Risk (07/15/2023) Received from [place] [place] and [facility] Housing Stability Social/Environmental Concerns: No concerns Family History Problem Relation Name Age of Onset Cancer Mother Liver Disease Father No Known Problems Sister Prostate Cancer Brother Family Status Relation Name Status Mother Father Sister Alive Brother Alive No partnership data on file Physical Exam Abdominal: General: Abdomen is flat. There is no distension. Palpations: Abdomen is soft. There is no mass. Tenderness: There is no abdominal tenderness. There is no guarding or rebound. Hernia: A hernia is present. Filed Vitals: 02/04/24 1458 BP: 113/73 Pulse: (!) 59 Resp: 18 Temp: 98.5 ??F (36.9 ??C) TempSrc: Core SpO2: 94% Weight: 101.4 kg (223 lb 9.6 oz) Height: 1.803 m (5' 11 ) PainSc: 0 (0-10 Scale) Diagnoses/Impression: 1. Umbilical hernia without obstruction or gangrene Recommendations and Plan: Recommend open repair with mesh. Procedure explained along with risks and Complications as outlined in our educational pamphlet which was reviewed And given to the patient. Risks include bleeding, infection , numbness, bowel Injury , mesh complications, recurrence. Understands and wishes to proceed. Reviewed and updated this visit by provider: Hazel TRUONG Referring Provider: Johnathon Braga DO PCP: Johnathon Braga DO documented in this encounter Plan of Treatment Upcoming Encounters Date Type Department Care Team (Late st Contact Info) Description 09/10/2024 11:30 AM SHIPPING SUPPORT CLERK Appointment [facility] [address] [place] [address] [place] [address] [address] 10/25/2024 9:20 AM SHIPPING SUPPORT CLERK Office Visit [facility] Medical [facility] Family & Internal Medicine - [address] [phone] Johnathon Braga DO [address] [place] [address] 11/21/2024 9:40 AM CDT Office Visit [facility] Medical Group Multispecialty Care - [facility] [address] [facility], [address] [place] [address] Shelli Gonzalez MD [address] [place] [address] documented as of this encounter Visit Diagnoses Diagnosis Umbilical hernia without obstruction or gangrene- Primary Umbilical hernia without mention of obstruction or gangrene documented in this encounter Additional Health Concerns Assessment Noted Time PHQ-9 Depression Total Score: 4 07/20/20 23 11:48 AM SHIPPING SUPPORT CLERK documented as of this encounter Care Teams Nitriles Lab Technician Relationship Specialty Start Date End Date Johnathon Braga DO [address] [place] [address] PCP - General FAMILY PRACTICE 10/31/20 documented as of this encounter
--- OUTSIDE RECORDS SUMMARY | 2024-09-03 07:52 | XMS_ITS | Encounter Summary ---
Author Organization [facility] [place] Address [address] [place] [address]. [place], [place] [address] [place] [address] Care Team Providers Care Surgical First Assistant Name Role Phone Johnathon Braga DO Primary Care Provider + Reason for Referral * Consultation (Routine) - Authorized Specialty Diagnoses / Procedures Referred By Jonah t Referred To Contact DIABETES EDUCATION / [facility] Diabetes and Nutrition Diagnoses Type 2 diabetes mellitus without complication, without long-term current use of insulin ([facility]) Procedures OFFICE/OUTPATIENT NEW LOW MDM 30-44 MINUTES OFFICE/OUTPT VISIT,NEW,LEVL IV OFFICE/OUTPT VISIT,NEW,LEVL V OFFICE/OUTPT VISIT,EST,LEVL III OFFICE/OUTPT VISIT,EST,LEVL IV OFFICE/OUTPT VISIT,EST,LEVL V Johnathon Braga DO [address] [phone] Phone: tel: fax: [facility] Diabetes & Nutrition Services [id number] [place] [address] Phone: tel: fax: Referral ID Status Reason Start Date Expiration Date Visits Requested Visits Authorized [id number] Authorized Specialty Services 11/16/2023 11/15/2024 25 25 IC MANGLER Reason for Visit * Reason Comments Sexual Problem 2 month follow up on hypersexuality Encounter Details Date Type Department Care Team (Latest Contact Info) Description 11/16/2023 9:20 AM CHEMIC MANGLER Office Visit [facility] Medical Group Family & Internal Medicine [phone] [place] [address] Johnathon Braga DO [facility] [place] [facility] [place] [address] Sexual Problem (2 month follow up on hypersexuality ) Social History Tobacco Use Types Packs/Day [...] on file Legal Sex Male 11:26 AM CHEMIC MANGLER Gender Identity Not on file Sexual Orientation Not on file documented as of this encounter Last Filed Vital Signs Vital Sign Reading Time Taken Comments Blood Pressure 114/74 11/16/2023 9:32 AM CHEMIC MANGLER Pulse 54 11/16/2023 9:32 AM CHEMIC MANGLER Temperature 37.1 ??C (98.7 ??F) 11/16/2023 9:32 AM CS T Respiratory Rate 16 11/16/2023 9:32 AM CHEMIC MANGLER Oxygen Saturation 98% 11/16/2023 9:32 AM CHEMIC MANGLER Inhaled Oxygen Concentration - - Weight 108.8 kg (239 lb 14.4 oz) 11/16/2023 9:32 AM CHEMIC MANGLER Height 180.3 cm (5' 11 ) 11/16/2023 9:32 AM CHEMIC MANGLER Body Mass Index 33.46 11/16/2023 9:32 AM CHEMIC MANGLER documented in this encounter Patient Instructions * Attachments The following attachments cannot be sent through Care Everywhere. * How to Keep Track of Your Blood Sugar ([place]) * Carbohydrate Counting Diet ([place]) * Blood Glucose Monitoring ([place]) documented in this encounter Progress Notes * JOANN George 11/16/2023 9:20 AM CSTAddended by: TONIA GREENBERG on: 11/16/2023 04:08 PM Modules accepted: Orders IC MANGLER * Johnathon Braga DO - 11/16/2023 9:20 AM CST Images from the original note were not included. GENERAL OFFICE VISIT Encounter Date: 11/16/2023 Chief Complaint: 68-year-old male presents for Sexual Problem (2 month follow up on hypersexuality ) HPI: Pt presents for 3 month follow-up. Pt presents for repeat A1c given his prediabetes noted previously. Pt has notable diarrhea to the point of having accidents from the metformin. Pt is falling with some frequency. HGB A1C Date Value Ref Range Status 11/16/2023 7.0 % Final 06/08/2023 5.8 % [...] A1c for diagnosis of diabetes for children. 06/20/2022 5.7 (H) <5.7 % of total Hgb Final [...] Status 07/02/2023 6.1 (H) <=5.6 % Final Pt has ROSEMARIE. Pt is using it but not as long as he should. He is sleeping more. Patient presents for follow-up on essential hypertension. Patient has had hypertension for multipleyears. Current medications include Chlorthalidone and Propranolol LA . Patient's blood pressure is well controlled at this time. No side effects noted from medications. Concurrent conditions include H yperlipidemia. Patient presents for follow-up on HLD. Patient has had HLD for multiple years. Current medications include atorvastatin. Current side effects include none. Patient does not need labs drawn today. Review of Systems Constitutional: Negative for fever. Respiratory: Negative for shortness of breath. Cardiovascular: Negative for chest pain. Gastrointestinal: Positive for diarrhea. Patient Active Problem List Diagnosis Benign essential tremor Calculus of kidney Convergence insufficiency Dizziness Fatigue Hypertension Idiopathic gout Postconcussion syndrome Post-traumatic headache, not intractable Syncope Visual disturbance Irritability and anger Hypogonadism in male Lesion of ulnar nerve Prediabetes Cubital tunnel syndrome on left Marital relationship problem Moderate episode of recurrent major depressive disorder (CMS/HCC) Paraphilia, unspecified Severe recurrent major depression without psychotic features (HHS/HCC) (CMS/HCC) Sexual behavior disorder Cataract of both eyes, unspecified cataract type ROSEMARIE (obstructive sleep apnea) Hypersexuality Past Medical History: Diagnosis Date Dementia (CMS/HCC) Excessive anger Gout Hypertension Kidney stone Loss of hearing Numbness Post-concussional syndrome Tremor Past Surgical History: Procedure Laterality Date ANESTH,CERV SPINE,CORD SURGERY HERNIA REPAIR 1971 LITHOTRIPSY Family History Problem [...] Never Tobacco comments: na Vaping Use Vaping Use: Never used Substance and Sexual Activity Alcohol use: Never Drug use: Never Sexual activity: Not on file Other Topics Concern Not on file Social History Narrative Not on file Social Determinants of Health Financial Resource Strain: Not on file Food Insecurity: Not on file Transportation Needs: Not on file Physical Activity: Not on file Stress: Not on file Social Connections: Not on file Intimate Partner Violence: Not on file Housing Stability: Not on file Immunization History Administered Date(s) Administered Fluzone High Dose - >Age 65 (Prefilled Syringe) 07/09/2023 Fliplife) COVID-19 AD26 VACCINE 0.5 ML IM SUSP 11/22/2020 Td 05/04/2008 Tdap (Generic) 06/04/2021 Current Outpatient Medications Medication Sig Dispense Refill allopurinol (ZYLOPRIM) 300 MG tablet Take 1 tablet by mouth once daily 90 tablet 0 Alpha-Lipoic Acid 600 MG Tab Take 1 tablet by mouth daily. atorvastatin (LIPITOR) 10 MG tablet take 1 tablet by mouth nightly at bedtime 90 tablet 0 Blood Glucose Monitoring Suppl (ONE TOUCH ULTRA 2) w/Device Kit Check blood sugar once daily in AM when fasting 1 kit 0 chlorthalidone (HYGROTEN) 25 MG tablet Take 1 tablet by mouth once daily 90 tablet 0 donepezil (ARICEPT) 10 MG Tab Take 1 tablet (10 mg total) by mouth daily. 90 tablet 3 fish oil 1000 MG Cap capsule Take by mouth 2 (two) times daily. gabapentin (NEURONTIN) 600 MG tablet take 1 tablet by mouth three times daily 270 tablet 0 glipiZIDE XL 5 MG 24 hr tablet Take 1 tablet (5 mg total) by mouth daily with breakfast. Do not break or crush tablet 30 tablet 2 Glucose Blood test strip Check blood sugar once daily in AM when fasting 100 strip 11 hydrOXYzine 50 MG tablet Take by mouth every 8 (eight) hours as needed. lamoTRIgine 100 MG tablet Take 1 tablet (100 mg total) by mouth 2 (two) times daily. Lancets (PhotoManiaTOUCH ULTRASOFT) lancets Check blood sugar once daily in AM when fasting 1 each 11 meclizine (ANTIVERT) 25 MG tablet Take 1 tablet (25 mg total) by mouth daily as needed. (Patient taking differently: Take 1 tablet (25 mg total) by mouth 3 (three) times daily as needed.) 30 tablet 0 Multiple Vitamins-Minerals (CENTRUM ADULTS OR) Take 1 tablet by mouth daily. PARoxetine (PAXIL) 20 MG tablet Take 1 tablet (20 mg total) by mouth daily. propranolol LA (INDERAL LA) 60 MG 24 hr capsule Take 1 capsule (60 mg total) by mouth daily. 30 capsule 11 tamsulosin 0.4 MG Cap Take 1 capsule (0.4 mg total) by mouth daily. testosterone cypionate 200 MG/ML injection Inject 1 mL (200 mg total) into the muscle every 21 days. vitamin D3, cholecalciferol, 1000 UNIT Tab tablet Take 2 tablets (2,000 Units total) by mouth daily. No current facility-administered medications for this visit. [...] Take 1 tablet by mouth once daily donepezil (ARICEPT) 10 MG Tab Take 1 tablet (10 mg total) by mouth daily. fish oil 1000 MG Cap capsule Take by mouth 2 (two) times daily. gabapentin (NEURONTIN) 600 MG tablet take 1 tablet by mouth three times daily hydrOXYzine 50 MG tablet Take by mouth every 8 (eight) hours as needed. lamoTRIgine 100 MG tablet Take 1 tablet (100 mg total) by mouth 2 (two) times daily. meclizine (ANTIVERT) 25 MG tablet Take 1 tablet (25 mg total) by mouth daily as needed. (Patient taking differently: Take 1 tablet (25 mg total) by mouth 3 (three) times daily as needed.) Multiple Vitamins-Minerals (CENTRUM ADULTS OR) Take 1 tablet by mouth daily. PARoxetine (PAXIL) 20 MG tablet Take 1 tablet (20 mg total) by mouth daily. propranolol LA [...] tablets (2,000 Units total) by mouth daily. No current facility-administered medications on file prior to visit. Review of patient's allergies indicates: Allergen Reactions Carbamazepine Rash and Swelling Objective: Filed Vitals: 11/16/23 0932 BP: 114/74 Pulse: (!) 54 Resp: 16 Temp: 98.7 ??F (37.1 ??C) TempSrc: Skin SpO2: 98% Weight: 108.8 kg (239 lb 14.4 oz) Height: 1.803 m (5' 11 ) Physical Exam Vitals and nursing note reviewed. Constitutional: Appearance: He is obese. HENT: Head: Normocephalic and atraumatic. Right Ear: External ear normal. Left Ear: External ear normal. Nose: Nose normal. Eyes: General: No scleral icterus. Conjunctiva/sclera: Conjunctivae normal. Cardiovascular: Rate and Rhythm: Normal rate and regular rhythm. Pulmonary: Effort: Pulmonary effort is normal. Skin: General: Skin is dry. Findings: No rash. Neurological: Mental Status: He is alert and oriented to person, place, and time. Psychiatric: Mood and Affect: Mood and affect normal. Assessment & Plan: Wily was seen today for sexual problem. Diagnoses and all orders for this visit: Type 2 diabetes mellitus without complication, without long-term current use of insulin ([facility]/HCC) ([facility]) - glipiZIDE XL 5 MG 24 hr tablet; Take 1 tablet (5 mg total) by mouth daily with breakfast. Do not break or crush tablet - Glucose Blood test strip; Check blood sugar once daily in AM when fasting - Blood Glucose Monitoring Suppl (ONE TOUCH ULTRA 2) w/Device Kit; Check blood sugar once daily in AM when fasting - Lancets (ONETOUCH ULTRASOFT) lancets; Check blood sugar once daily in AM when fasting - Ambulatory Referral to Diabetes Education and/or Medical Nutrition Therapy Essential hypertension Hyperlipidemia, unspecified hyperlipidemia type ROSEMARIE (obstructive sleep apnea) Elevated fasting glucose - HEMOGLOBIN, GLYCOSYLATED - COLLECT.CAPILLARY (FNGR,HEEL,EAR) BMI 33.0-33.9,adult Discussion/Summary: Pt is now diabetic; discussed in detail. Will refer to inclusion special educator. Will change metformin to glipizide due to side effects. Pt is falling; will hold off on starting aspirin. Use CPAP as instructed; expect some of his symptoms are coming from noncompliance with this. Continue other meds as prescribed for other conditions. Will have pt f/u in 3 months or sooner if needed. Johnathon Braga DO IC MANGLER documented in this encounter Plan of Treatment Upcoming Encounters Date Type Department Care Team (Late st Contact Info) Description 09/10/2024 11:30 AM CHEMIC MANGLER [facility]oint[address] [facility] [address] [place] [address] Zay Juá[place] [address] [facility] [address] [place] [address] 10/25/2024 9:20 AM CHEMIC MANGLER Office Visit [facility] Medical Group Family & Internal Medicine - [address] [phone] Johnathon Braga DO [address] [place] [address] 11/21/2024 9:40 AM CDT Office Visit [facility] Multispecialty Care - [address], [address] [place] [phone] Shelli Gonzalez MD [address] [place] [address] Scheduled Referrals Name Type Priority Associated Diagnoses Orde r Schedule Ambulatory Referral to Diabetes Education and/or Medical Nutrition Therapy Referral Routine Type 2 diabetes mellitus without complication, without long-term current use of insulin ([facility]) Ordered: 11/16/2023 documented as of this encounter Procedures Procedure Name Priority Date/Time Associated Diagnosis Comments COLLECT.CAPILLARY (FNGR,HEEL,EAR) Routine 11/16/2023 9:32 AM CHEMIC MANGLER Elevated fasting glucose HEMOGLOBIN, GLYCOSYLATED Routine 11/16/2023 Elevated fasting glucose documented in this encounter Results * HEMOGLOBIN, GLYCOSYLATED (11/16/2023) HGB A1C 7.0 % [facility] 11/16/2023 us Johnathon Braga DO LABORATORY Final Re sult -[address] [address], documented in this encounter Visit Diagnoses Diagnosis Type 2 diabetes mellitus without complication, without long-term current use of insulin ([facility])- Primary Essential hypertension Unspecified essential hypertension Hyperlipidemia, unspecified hyperlipidemia type ROSEMARIE (obstructive sleep apnea) Obstructive sleep apnea (adult) (pediatric) Elevated fasting glucose Impaired fasting glucose BMI 33.0-33.9,adult Body Mass Index 33.0-33.9, adult documented in this encounter Additional Health Concerns Assessment Noted Time PHQ-9 Depression Total Score: 4 07/20/20 23 11:48 AM CHEMIC MANGLER documented as of this encounter Care Teams Surgical First Assistant Relationship Specialty Start Date End Date Johnathon Braga DO [address] [place] [address] PCP - General FAMILY PRACTICE 10/31/20 documented as of this encounter
--- OUTSIDE RECORDS SUMMARY | 2024-09-03 07:52 | XMS_ITS | Encounter Summary ---
Author Organization [facility] Address [address] [place] [address]. [place], [place] [phone] [place] [address] Care Team Providers Care Shuttle Truck Driver Name Role Phone Johnathon Braga DO Primary Care Provider + Reason for Visit * Reason Onset Date Comments Pre-visit Gap Closure 02/10/2023 Encounter Details Date Type Department Care Team (Late st Contact Info) Description 02/10/2023 Patient Outreach [facility] Medical [facility] Family & Internal Medicine [facility] [address] [place] [phone] Johnathon Braga DO [address] [place], [place] [phone] Pre-visit Gap Closure Social History Tobacco Use Types Packs/Day Years [...] on file 10/15 PHQ-2 Answer Date Recorded PHQ-2 Score - If the patient scores above 3, please move on to questions 3-9 0 02/06/2022 Sex and Gender Information Value Date Recorded Sex Assigned at Not on file Legal Sex Male 11:26 AM LEAD SYSTEMS ARCHITECT Gender Identity Not on file Sexual Orientation Not on file documented as of this encounter Progress Notes * Rodriguez Diaz - 02/10/2023 12:56 PM CDT Preventive Screenings: Breast Cancer Screening: N/A Notes: Colorectal Cancer Screening: Up to Date Notes: Diabetic Eye Exam: N/A Notes: Falls Risk Screening: Needs Follow Up Notes: Tobacco Cessation: N/A Notes: Labs: BMP/CMP: N/A Notes: Hemoglobin A1c: N/A Notes: Lipid: N/A Notes: Urine Albumin-Creatinine Ratio: N/A Notes: Immunizations: Pneumococcal: Needs Follow Up Notes: Shingles: Needs Follow Up Notes: documented in this encounter Plan of Treatment Upcoming Encounters Date Type Department Care Team (Late st Contact Info) Description 09/10/2024 11:30 AM LEAD SYSTEMS ARCHITECT Appointment [facility] [address] [place], [place] [phone] Zay Juá[place] [address] [facility] [address] [place] [phone] 10/25/2024 9:20 AM LEAD SYSTEMS ARCHITECT Office Visit [facility] Medical Group Family & Internal Medicine - [address] [phone] Johnathon Braga DO [address] [place] [address] 11/21/2024 9:40 AM CDT Office Visit [facility] Multispecialty Care - [address], [address] [place] [phone] Shelli Gonzalez MD [address] [place] [phone] documented as of this encounter Visit Diagnoses Not on filedocumented in this encounter Additional Health Concerns Assessment Noted Time PHQ-9 Depression Total Score: 5 10/31/19 21 2:44 PM LEAD SYSTEMS ARCHITECT documented as of this encounter Care Teams Shuttle Truck Driver Relationship Specialty Start Date End Date Johnathon Braga DO [address] [place], [place] [phone] PCP - General FAMILY PRACTICE 10/31/20 documented as of this encounter
--- OUTSIDE RECORDS SUMMARY | 2024-09-03 07:52 | XMS_ITS | Encounter Summary ---
Author Organization [facility] Address [address] [place] [address]. [place] [address] [place] [address] Care Team Providers Care Admeasurer Name Role Phone Johnathon Braga Primary Care Provider + Encounter Details Date Type Department Care Team (Latest Contact Info) Description 06/19/2023 Scan [facility] HEALTH INFO SRVCS Scanned, Doc [...] on file Legal Sex Male 11:26 AM MELT HOUSE CENTRIFUGAL OPERATOR Gender Identity Not on file Sexual Orientation Not on file documented as of this encounter Plan of Treatment Upcoming Encounters Date Type Department Care Team (Late st Contact Info) Description 09/10/2024 11:30 AM MELT HOUSE CENTRIFUGAL OPERATOR Appointment [facility] [address] [place] [address] Zay Juá[place] [address] [address] 10/25/2024 9:20 AM MELT HOUSE CENTRIFUGAL OPERATOR Office Visit [facility] Family & Internal Medicine [address] [place] [address] Johnathon Braga DO [address] [place] [address] 11/21/2024 9:40 AM CDT Office Visit [facility] Multispecialty Care - [facility] [address] [facility], [address] [place] [address] Shelli Gonzalez MD 3 [place] [address] documented as of this encounter Visit Diagnoses Not on filedocumented in this encounter Additional Health Concerns Assessment Noted Time PHQ-9 Depression Total Score: 4 02/20/20 23 1:21 PM CDT documented as of this encounter Care Teams Admeasurer Relationship Specialty Start Date End Date Johnathon Braga DO [address] [place] [address] PCP - General FAMILY PRACTICE 10/31/20 documented as of this encounter
--- OUTSIDE RECORDS SUMMARY | 2024-09-03 07:52 | XMS_ITS | Encounter Summary ---
Author Organization [facility] Address [address] [place] [address]. [place], [place] [address] [place] [address] Care Team Providers Care Media Marketing Director Name Role Phone Johnathon Braga DO Primary Care Provider + Reason for Visit * Reason Comments Depression 3 month follow up. Encounter Details Date Type Department Care Team (Late st Contact Info) Description 2023 10:20 AM DUST COLLECTOR ATTENDANT Office Visit [facility] Family [facility] [address] [place] [address] Johnathon Braga DO [facility] [place] [address] Depression (3 month follow up. ) Social History Tobacco Use Types Packs/Day [...] Answer Date Recorded Patient Health Questionnaire-2 Score 1 07/20/2023 Sex and Gender Information Value Date Recorded Sex Assigned at Not on file Legal Sex Male 11:26 AM DUST COLLECTOR ATTENDANT Gender Identity Not on file Sexual Orientation Not on file documented as of this encounter Last Filed Vital Signs Vital Sign Reading Time Taken Comments Blood Pressure 116/58 2023 10:37 AM DUST COLLECTOR ATTENDANT Pulse 56 2023 10:37 AM DUST COLLECTOR ATTENDANT Temperature 36.8 ??C (98.3 ??F) 2023 1 0:37 AM DUST COLLECTOR ATTENDANT Respiratory Rate 16 2023 10:3 7 AM DUST COLLECTOR ATTENDANT Oxygen Saturation 98% 2023 10: 37 AM DUST COLLECTOR ATTENDANT Inhaled Oxygen Concentration - - Weight 104.9 kg (231 lb 4.8 oz) 023 10:37 AM DUST COLLECTOR ATTENDANT Height 180.3 cm (5' 11 ) 2023 10: 37 AM DUST COLLECTOR ATTENDANT Body Mass Index 32.26 2023 10:37 AM DUST COLLECTOR ATTENDANT documented in this encounter Patient Instructions * Patient Instructions* Johnathon Braga DO - 2023 10:20 AM DUST COLLECTOR ATTENDANT [facility] Hotline: [phone] Hotline Email: [email or web address] [place] [address] COLLECTOR ATTENDANT documented in this encounter Progress Notes * Johnathon Braga DO - 2023 10:20 AM CST Images from the original note were not included. GENERAL OFFICE VISIT Encounter Date: 2023 Chief Complaint: 68-year-old male presents for Depression (3 month follow up. ) HPI: Pt presents for 1.5 month follow-up. We did not change psychiatric medications and agree with testosterone cessation at last OV. We alsoreturned to old dose of metformin to help with diarrhea, as this was inadvertently changed. Pt has continued with IOP following last OV. Pt was discharged yesterday to home. Pt is needing to repeat his CMP for his potassium. Pt is still seeing [facility] in [place], Dr. Last, and Foster Jiang, but he has not been keeping with the final group as they didn't know they needed to. Pt's partner has been homebound, so she hasn't been able to be as involved. They are going to get his CPAP machine with [facility]. Pt was started back on testosterone by urology. Pt saw eye doctor who stated he has cataracts and will need this. Patient presents for follow-up on essential hypertension. [...] of breath. Cardiovascular: Negative for chest pain. Genitourinary: See HPI Skin: Negative for rash. Psychiatric/Behavioral: See HPI Patient Active Problem List Diagnosis Benign essential [...] Dose - >Age 65 (Prefilled Syringe) 07/09/2023 [employer] ([employer]) COVID-19 AD26 VACCINE 0.5 ML IM SUSP 11/22/2020 Td 05/04/2008 Tdap (Generic) 06/04/2021 Current Outpatient Medications Medication Sig Dispense Refill allopurinol (ZYLOPRIM) 300 MG tablet Take 1 tablet by mouth once daily 90 tablet 0 Alpha-Lipoic Acid 600 MG Tab Take 1 tablet by mouth daily. atorvastatin (LIPITOR) 10 MG tablet TAKE 1 TABLET BY MOUTH NIGHTLY AT BEDTIME 90 tablet 0 chlorthalidone (HYGROTEN) 25 MG tablet Take 1 tablet by mouth once daily 90 tablet 1 donepezil (ARICEPT) 10 MG Tab Take 1 tablet (10 mg total) by mouth daily. 90 tablet 3 fish oil 1000 MG Cap capsule Take by mouth 2 (two) times daily. gabapentin (NEURONTIN) 600 MG tablet Take 1 tablet (600 mg total) by mouth 3 (three) times daily. 270 tablet 1 hydrOXYzine 50 MG tablet Take by mouth [...] times daily as needed.) 30 tablet 0 metFORMIN ER (GLUCOPHAGE-XR) 500 MG 24 hr tablet Take 1 tablet (500 mg total) by mouth daily with breakfast. 90 tablet 1 Multiple Vitamins-Minerals (CENTRUM ADULTS OR) Take 1 [...] mouth daily. atorvastatin (LIPITOR) 10 MG tablet TAKE 1 TABLET BY MOUTH NIGHTLY AT BEDTIME chlorthalidone (HYGROTEN) 25 MG tablet Take 1 tablet by mouth once daily donepezil (ARICEPT) 10 MG Tab Take 1 tablet (10 mg total) by mouth daily. fish oil 1000 MG Cap capsule Take by mouth 2 (two) times daily. gabapentin (NEURONTIN) 600 MG tablet Take 1 tablet (600 mg total) by mouth 3 (three) times daily. hydrOXYzine 50 MG tablet Take by mouth every 8 (eight) hours as needed. lamoTRIgine 100 MG tablet Take 1 tablet (100 mg total) by mouth 2 (two) times daily. meclizine (ANTIVERT) 25 MG tablet Take 1 tablet (25 mg total) by mouth daily as needed. (Patient taking differently: Take 1 tablet (25 mg total) by mouth 3 (three) times daily as needed.) metFORMIN ER (GLUCOPHAGE-XR) 500 MG 24 hr tablet Take 1 tablet (500 mg total) by mouth daily with breakfast. Multiple Vitamins-Minerals (CENTRUM ADULTS OR) Take 1 [...] Carbamazepine Rash and Swelling Objective: Filed Vitals: 09/09/23 1037 BP: 116/58 Pulse: (!) 56 Resp: 16 Temp: 98.3 ??F (36.8 ??C) TempSrc: Skin SpO2: 98% Weight: 104.9 kg (231 lb 4.8 oz) Height: 1.803 m (5' 11 ) Physical Exam Vitals and nursing note reviewed. HENT: Head: Normocephalic and atraumatic. Right Ear: [...] & Plan: Wily was seen today for depression. Diagnoses and all orders for this visit: Hypersexuality Hypokalemia - COMPREHENSIVE METABOLIC PANEL; Future - COMPREHENSIVE METABOLIC PANEL ROSEMARIE (obstructive sleep apnea) Cataract of both eyes, unspecified cataract type Hypogonadism in male Essential hypertension Hyperlipidemia, unspecified hyperlipidemia type Discussion/Summary: Will order metabolic panel to recheck potassium levels, as they were decreased at last hospitalization. Continue other medications as prescribed as per above conditions and continue follow-up with all specialist. Given resources to continue with group therapy; continue follow-up with psychiatry andcounseling as well. Obtain CPAP and use as directed. Will have patient follow-up in 2 months and repeat A1c at that time. Patient verbalized understanding. Johnathon Braga DO COLLECTOR ATTENDANT documented in this encounter Plan of Treatment Upcoming Encounters Date Type Department Care Team (Late st Contact Info) Description 09/10/2024 11:30 AM DUST COLLECTOR ATTENDANT Appointment [facility] [address] [place] [address] Zay Juá[place] [address] [address] 10/25/2024 9:20 AM DUST COLLECTOR ATTENDANT Office Visit [facility] Family & Internal Medicine - [address] [address] Johnathon Braga DO [address] [place] [address] 11/21/2024 9:40 AM CDT Office Visit [facility] Mult[facility]ty Care - [facility] 3 [facility], [address] [place] [address] Shelli Gonzalez MD 3 [place], [place] [phone] documented as of this encounter Procedures Procedure Name Priority Date/Time Associated Diagnosis Comments COMPREHENSIVE METABOLIC PANEL Routine 2023 11:31 AM DUST COLLECTOR ATTENDANT Hypokalemia documented in this encounter Results * (ABNORMAL) COMPREHENSIVE METABOLIC PANEL (2023 11:31 AM DUST COLLECTOR ATTENDANT) GLUCOSE 123(H) 65 - 99 mg/dL [facility] Comment: ? Fasting reference interval For someone without known diabetes, a glucose value between 100 and 125 mg/dL is consistent with prediabetes and should be confirmed with a follow-up test. BUN 16 7 - 25 mg/dL [facility] CREATININE S/P/B 0.83 0.70 - 1.35 mg/dL [facility] GFR ESTIMATE 97 > OR = 60 mL/min/1. 73m2 [facility] BUN CREATININE RATIO SEE NOTE: (calc) [facility] Comment: ?? Not Reported: BUN and Creatinine are within ?? reference range. ? SODIUM S/P/B 142 135 - 146 mmol/L [facility] POTASSIUM S/P/B 3.5 3.5 - 5.3 mmol/L [facility] CHLORIDE S/P/B 103 98 - 110 mmol/L [facility] CO2 32 20 - 32 mmol/L [facility] CALCIUM S/P/B 8.9 8.6 - 10.3 mg/dL [facility] TOTAL PROTEIN S/P/B 6.5 6.1 - 8.1 g/dL [facility] ALBUMIN S/P/B 4.0 3.6 - 5.1 g/dL [facility] GLOBULIN 2.5 1.9 - 3.7 g/dL (calc) [facility] ALBUMIN/GLOBULI N RATIO 1.6 1.0 - 2.5 (calc) [facility] BILIRUBIN TOTAL S/P/B 0.6 0.2 - 1.2 mg/dL [facility] ALKALINE PHOSPHATASE S/P/B 114 35 - 144 U/L [facility] AST 17 10 - 35 U/L [facility] ALT 15 9 - 46 U/L [facility] 2023 11:3 1 AM DUST COLLECTOR ATTENDANT 2023 11:31 AM DUST COLLECTOR ATTENDANT Narrative [facility] - 09/10/2023 7:13 AM DUST COLLECTOR ATTENDANT FASTING:YES FASTING: YES Resulting Agency Comment Performing Organization Information: ?Site ID: [id number] ?Name: [employer] [place] ?Address: [address] [place] [id number] ?Director: Refugio Pennington MD us Johnathon Braga DO LABORATORY Final Re sult [facility] [id number] [place] [id number] [place] [address] documented in this encounter Visit Diagnoses Diagnosis 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 Hypokalemia Hypopotassemia ROSEMARIE (obstructive sleep apnea) Obstructive sleep apnea (adult) (pediatric) Cataract of both eyes, unspecified cataract type Hypogonadism in male Essential hypertension Unspecified essential hypertension Hyperlipidemia, unspecified hyperlipidemia type documented in this encounter Additional Health Concerns Assessment Noted Time PHQ-9 Depression Total Score: 4 07/20/20 23 11:48 AM DUST COLLECTOR ATTENDANT documented as of this encounter Care Teams Media Marketing Director Relationship Specialty Start Date End Date Johnathon Braga DO [address] [place] [address] PCP - General FAMILY PRACTICE 10/31/20 documented as of this encounter
--- OUTSIDE RECORDS SUMMARY | 2024-09-03 07:52 | XMS_ITS | Encounter Summary ---
Author Organization [facility] Address [address] [place] [address]. [place] [address] [place] [address] Care Team Providers Care Piece Dyer Name Role Phone Johnathon Braga Timbo SHELTON Primary Care Provider + Reason for Visit * Reason Onset Date Comments Question 07/29/2023 Encounter Details Date Type Department Care Team (Late st Contact Info) Description 07/29/2023 Telephone [facility] Multispecialty Care - [facility] [address] [facility], [address] [place] [phone] Shelli Gonzalez MD 3 [place] [address] Question Social History Tobacco Use Types Packs/Day [...] on file Legal Sex Male 11:26 AM GENERAL HOUSE WORKER Gender Identity Not on file Sexual Orientation Not on file documented as of this encounter Progress Notes * Melissa Cobb MA - 07/29/2023 1:49 PM CST Patient scheduled. RAL HOUSE WORKER * Kemi Poon - 07/29/2023 1:26 PM CST Patient's called today to see if Dr Gonzalez will see her . He was a pt with dr Hill. Please call to discuss RAL HOUSE WORKER documented in this encounter Plan of Treatment Upcoming Encounters Date Type Department Care Team (Late st Contact Info) Description 09/10/2024 11:30 AM GENERAL HOUSE WORKER Appointment [facility] [address] [place], [place] [phone] Zay Juárez [place] [address] [address] 10/25/2024 9:20 AM GENERAL HOUSE WORKER Office Visit [facility] Family & Internal Medicine - [place] [address] [place] [address] Johnathon Braga DO [address] [place] [address] 11/21/2024 9:40 AM CDT Office Visit [facility] Multispecialty Care - [address], [address] [place] [address] Shelli Gonzalez MD 3 [place], [place] [phone] documented as of this encounter Visit Diagnoses Not on filedocumented in this encounter Additional Health Concerns Assessment Noted Time PHQ-9 Depression Total Score: 4 07/20/20 23 11:48 AM GENERAL HOUSE WORKER documented as of this encounter Care Teams Piece Dyer Relationship Specialty Start Date End Date Johnathon Braga DO [facility] [place] [address] PCP - General FAMILY PRACTICE 10/31/20 documented as of this encounter
--- OUTSIDE RECORDS SUMMARY | 2024-09-03 07:52 | XMS_ITS | Encounter Summary ---
Author Organization [facility] Address [address] [place] [address]. [place], [place] [address] [place] [address] Care Team Providers Care Engraving Patternmaker Name Role Phone Johnathon Braga Primary Care Provider + Reason for Visit * Reason Comments Sleep Study (SCAN) Encounter Details Date Type Department Care Team (Late Contact Info) Description 12/18/2023 Scan HEALTH INFO SRVCS Scanned, Doc Med Group Sleep Study (SCAN) Social History Tobacco Use Types Packs/Day [...] on file Legal Sex Male 11:26 AM EDGER FEEDER Gender Identity Not on file Sexual Orientation Not on file documented as of this encounter Plan of Treatment Upcoming Encounters Date Type Department Care Team ([facility] Contact Info) Description 09/10/2024 11:30 AM EDGER FEEDER Appointment [facility] [address] [place] [address] Zay Juárez [place] [address] [address] 10/25/2024 9:20 AM EDGER FEEDER Office Visit [facility] Family & Internal Medicine - [place] [address] [place] [address] Johnathon Braga DO [address] [place] [address] 11/21/2024 9:40 AM CDT Office Visit [facility] Multispecialty Care - [facility] [address] [facility], [address] [place] [address] Shelli Gonzalez MD [address] [place] [address] documented as of this encounter Procedures Procedure Name Priority Date/Time Associated Diagnosis Comments SLEEP STUDY GENERIC (SCAN ORDER) 12/18/2023 documented in this encounter Results * SLEEP STUDY GENERIC (SCAN ORDER) (12/18/2023) 12/18/2023 us Doc Med Group Scanned SCANNING Final Resu lt documented in this encounter Visit Diagnoses Not on filedocumented in this encounter Additional Health Concerns Assessment Noted Time PHQ-9 Depression Total Score: 4 07/20/20 23 11:48 AM EDGER FEEDER documented as of this encounter Care Teams Engraving Patternmaker Relationship Specialty Start Date End Date Johnathon Braga DO [facility] [place] [address] PCP - General FAMILY PRACTICE 10/31/20 documented as of this encounter
--- OUTSIDE RECORDS SUMMARY | 2024-09-03 07:52 | XMS_ITS | Encounter Summary ---
Author Organization [facility] Address [address] [place] [address]. [place], [place] [address] [place] [address] Care Team Providers Care Socket Puller Name Role Phone Johnathon Braga DO Primary Care Provider + Reason for Referral * Surgical (Routine) - Closed Specialty Diagnoses / Procedures Referred By Jonah weber Referred To Contact GENERAL SURGERY Diagnoses Umbilical hernia without obstruction or gangrene Procedures Case request operating room: [facility] Zay Juárez MD [address] [place] [phone] Phone: tel: fax: Referral ID Status Reason Start Date Expiration Date Visits Re quested Visits Authorized [id number] Closed 02/09/2024 02/08/2025 1 1 Encounter Details Date Type Department Care Team (Late st Contact Info) Description 02/09/2024 Prep for Procedure [facility] Medical [facility] General Surgery [address], [address] [place] [address] Zay Juárez [place] [address] [address] Social History Tobacco Use Types Packs/Day Years [...] on file Legal Sex Male 11:26 AM DIAMOND CLEAVER Gender Identity Not on file Sexual Orientation Not on file documented as of this encounter Plan of Treatment Upcoming Encounters Date Type Department Care Team (Late st Contact Info) Description 09/10/2024 11:30 AM DIAMOND CLEAVER Appointment [facility] [address] [place] [address] Zay Juá[place] [address] [facility] [address] [place] [address] 10/25/2024 9:20 AM DIAMOND CLEAVER Office Visit [facility] Medical [facility] Family & Internal Medicine - [place] [address] [place] [address] Johnathon Braga, [address] [place] [address] 11/21/2024 9:40 AM CDT Office Visit [facility] Multispecialty Care - [address], [address] [place] [address] Shelli Gonzalez MD [address] [place] [address] Scheduled Orders Name Type Priority Associated Diagnoses Orde r Schedule Case request operating room: [facility] Case Request Routine Umbilical hernia without obstruction or gangrene Once for 1 Occurrences starting 03/10/2024 until 03/10/2024 documented as of this encounter Visit Diagnoses Diagnosis Umbilical hernia without obstruction or gangrene- Primary Umbilical hernia without mention of obstruction or gangrene documented in this encounter Additional Health Concerns Assessment Noted Time PHQ-9 Depression Total Score: 4 07/20/20 23 11:48 AM DIAMOND CLEAVER documented as of this encounter Care Teams Socket Puller Relationship Specialty Start Date End Date Johnathon Braga DO [address] [place] [address] PCP - General FAMILY PRACTICE 10/31/20 documented as of this encounter
--- OUTSIDE RECORDS SUMMARY | 2024-09-03 07:52 | XMS_ITS | Encounter Summary ---
Author Organization [facility] Address [address] [place] [address]. [place] [address] [place] [address] Care Team Providers Care Cask Maker Name Role Phone Johnathon Braga Primary Care Provider + Encounter Details Date Type Department Care Team (Latest Contact Info) Description 07/09/2023 Scan MG HEALTH INFO SRVCS Scanned, Doc [...] on file Legal Sex Male 11:26 AM INFORMATION SYSTEMS ANALYST Gender Identity Not on file Sexual Orientation Not on file documented as of this encounter Plan of Treatment Upcoming Encounters Date Type Department Care Team (Late st Contact Info) Description 09/10/2024 11:30 AM INFORMATION SYSTEMS ANALYST Appointment [facility] [address] [place] [address] Zay Juárez [place] [address] [address] 10/25/2024 9:20 AM INFORMATION SYSTEMS ANALYST Office Visit [facility] Family & Internal Medicine - [place] [address] [place] [address] Johnathon Braga DO [address] [place] [address] 11/21/2024 9:40 AM CDT Office Visit [facility] Group Multispecialty Care - [facility] [address] [facility], [address] [place] [address] Shelli Gonzalez MD 3 [place] [address] documented as of this encounter Visit Diagnoses Not on filedocumented in this encounter Additional Health Concerns Assessment Noted Time PHQ-9 Depression Total Score: 4 02/20/20 23 1:21 PM CDT documented as of this encounter Care Teams Cask Maker Relationship Specialty Start Date End Date Johnathon Braga DO [address] [place] [address] PCP - General FAMILY PRACTICE 10/31/20 documented as of this encounter
--- OUTSIDE RECORDS SUMMARY | 2024-09-03 07:52 | XMS_ITS | Encounter Summary ---
Author Organization [facility] Address [address] [place] [address]. [place] [address] [place] [address] Care Team Providers Care Electric Meter Setter Name Role Phone Johnathon Braga Primary Care Provider + Encounter Details Date Type Department Care Team (Latest Contact Info) Description 02/04/2024 Travel Social History Tobacco Use Types Packs/Day [...] on file Legal Sex Male 11:26 AM INFANT NANNY Gender Identity Not on file Sexual Orientation Not on file documented as of this encounter Plan of Treatment Upcoming Encounters Date Type Department Care Team (Late st Contact Info) Description 09/10/2024 11:30 AM INFANT NANNY Appointment [facility] [address] [place] [address] Zay Juárez MD [address] [place] [address] 10/25/2024 9:20 AM INFANT NANNY Office Visit [facility] Medical Group Family & Internal Medicine [address] [address] Johnathon Braga DO [address] [place] [address] 11/21/2024 9:40 AM CDT Office Visit [facility] Medical Group Multispecialty Care - [facility] 3 [facility], [address] [place] [address] Shelli Gonzalez MD 3 [place] [address] documented as of this encounter Visit Diagnoses Not on filedocumented in this encounter Additional Health Concerns Assessment Noted Time PHQ-9 Depression Total Score: 4 07/20/20 23 11:48 AM INFANT NANNY documented as of this encounter Care Teams Electric Meter Setter Relationship Specialty Start Date End Date Johnathon Braga DO [address] [place] [address] PCP - General FAMILY PRACTICE 10/31/20 documented as of this encounter
--- OUTSIDE RECORDS SUMMARY | 2024-09-03 07:52 | XMS_ITS | Encounter Summary ---
Author Organization [facility] Address [address] [place] [address]. [place], [place] [address] [place] [address] Care Team Providers Care J2Ee Application Developer Name Role Phone Johnathon Braga Primary Care Provider + Encounter Details Date Type Department Care Team (Latest Contact Info) Description 02/19/2023 Travel Social History Tobacco Use Types Packs/Day [...] on file Legal Sex Male 11:26 AM LENS FABRICATING MACHINE TENDER Gender Identity Not on file Sexual Orientation [...] st Contact Info) Description 09/10/2024 11:30 AM LENS FABRICATING MACHINE TENDER Appointment [facility] [address] [place] [address] Zay Juárez [place] [address] [facility] [address] [place] [phone] 10/25/2024 9:20 AM LENS FABRICATING MACHINE TENDER Office Visit [facility] Family & Internal Medicine - [address] [address] Johnathon Braga DO [address] [place] [address] 11/21/2024 9:40 AM CDT Office Visit [facility] Multispecialty Care - [facility] [address] [facility], [address] [place] [address] Shelli Gonzalez MD [address] [place] [address] documented as of this encounter Visit Diagnoses Not on filedocumented in this encounter Additional Health Concerns Assessment Noted Time PHQ-9 Depression Total Score: 4 02/20/20 23 1:21 PM CDT documented as of this encounter Care Teams J2Ee Application Developer Relationship Specialty Start Date End Date Johnathon Braga DO [address] [place] [address] PCP - General FAMILY PRACTICE 10/31/20 documented as of this encounter
--- OUTSIDE RECORDS SUMMARY | 2024-09-03 07:52 | XMS_ITS | Encounter Summary ---
Author Organization [facility] Address [address] [place] [address]. 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 Gender Identity Not on file Sexual Orientation Not on file documented as of this encounter Plan of Treatment Upcoming Encounters Date Type Department Care Team (Late st Contact Info) Description 09/10/2024 11:30 AM SPECIAL MAKEUP FX ARTIST INSTRUCTOR Appointment [facility] [address] [place], [place] [address] Zay Juárez [place] [id number] [phone] 10/25/2024 9:20 AM SPECIAL MAKEUP FX ARTIST INSTRUCTOR Office Visit [facility] Family & Internal Medicine [address] [address] Johnathon Braga DO [address] [place] [address] 11/21/2024 9:40 AM CDT Office Visit [facility] Multispecialty Care - [facility] [address] [facility], [address] [place] [address] Shelli Gonzalez MD 3 [place] [address] documented as of this encounter Visit Diagnoses Not on filedocumented in this encounter Additional Health Concerns Assessment Noted Time PHQ-9 Depression Total Score: 4 07/20/20 23 11:48 AM SPECIAL MAKEUP FX ARTIST INSTRUCTOR documented as of this encounter Care Teams Community Relations Police Lieutenant Relationship Specialty Start Date End Date Johnathon Braga DO [facility] [place] [address] PCP - General FAMILY PRACTICE 10/31/20 documented as of this encounter
--- OUTSIDE RECORDS SUMMARY | 2024-09-03 07:52 | XMS_ITS | Encounter Summary ---
Author Organization [facility] Address [address] [place] [address]. [place], [place] [address] [place] [address] Care Team Providers Care Registered Nurse Behavioral Health Name Role Phone Johnathon Braga DO Primary Care Provider + Reason for Referral * Consultation (Routine) - Closed Specialty Diagnoses / Procedures Referred By Jonah weber Referred To Contact NEUROLOGY Diagnoses Traumatic brain injury with loss of consciousness, sequela (CMS/[facility]) Procedures OFFICE/OUTPT VISIT,NEW,LEVL III OFFICE/OUTPT VISIT,NEW,LEVL IV OFFICE/OUTPT VISIT,NEW,LEVL V OFFICE/OUTPT VISIT,EST,LEVL III OFFICE/OUTPT VISIT,EST,LEVL IV OFFICE/OUTPT VISIT,EST,LEVL V Giuseppe Da Silva MD Phone: tel: fax: [facility] [address] [place] [phone] Phone: tel: fax: Referral ID Status Reason Start Date Expiration Date V isits Requested Visits Authorized [id number] Closed Specialty Services 03/02/2023 03/02/2024 100 100 Scheduling Instructions [facility] Scott Templeton MD or anyone from neuro-rehab Reason for Visit * Reason Comments Follow Up * Consultation (Routine) - Closed Specialty Diagnoses / Procedures Referred By Contelis weber Referred To Contact NEUROLOGY Diagnoses Postconcussion syndrome Chronic post-traumatic headache, not intractable Tremor Polyneuropathy Johnathon Braga, DO [address] [place] [address] Phone: tel: fax: [facility] - [address], [address] [place] [address] Phone: tel: Referral ID Status Reason Start Date Expiration Date V isits Requested Visits Authorized [id number] Closed Specialty Services 02/06/2022 03/09/2023 99 99 Encounter Details Date Type Department Care Team (Late st Contact Info) Description 03/02/2023 11:20 AM CDT [facility] - [address], [address] [place] [address] Giuseppe Da Silva MD [address] [place] [address] Follow Up Social History Tobacco Use Types Packs/Day Years [...] on file 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 No / Unsure 02/19/2023 1:12 PM CDT documented as of this encounter Last Filed Vital Signs Vital Sign Reading Time Taken Comments Blood Pressure 135/81 03/02/2023 11:13 AM CDT Pulse 71 03/02/2023 11:13 AM CDT Temperature 36.7 ??C (98.1 ??F) 03/02/2023 11:13 AM C DT Respiratory Rate - - Oxygen Saturation 94% 03/02/2023 11:13 AM CDT Inhaled Oxygen Concentration - - Weight 99.3 kg (219 lb) 03/02/2023 11:13 AM CDT Height 180.3 cm (5' 11 ) 03/02/2023 11:13 AM CDT Body Mass Index 30.54 03/02/2023 11:13 AM CDT documented in this encounter Patient Instructions * Patient Instructions* Giuseppe Da Silva MD - 03/02/2023 11:20 AM CDT Please start Alpha Lipoic Acid 600mg daily for your nerve pain [email or web address] documented in this encounter Progress Notes * Giuseppe Da Silva MD - 03/02/2023 11:20 AM CDT Neurology Clinic [facility] Multispecialty Care - [address], [address] [place] [phone] Dept: [phone] Name: Wily Bahena Date of : 1955 PCP: Johnathon Braga DO Date: 03/02/2023 Chief Complaint: Postconcussive syndrome History of Present Illness: Wily Bahena is a 67-year-old male with a past medical history significant for a remote history of head trauma complicated by behavioral disturbance, peripheral neuropathy, hypertension who was referred by Johnathon Braga DO to the Neurology Clinic for evaluation of postconcussive syndrome. They were last seen by me in clinic on 06/20/2022 and the plan was as follows: #Behavioral disturbance/postconcussive syndrome - Ambulatory EEG -Continue to follow psychiatry for management of behaviors #Vertigo and autophony - CT of the temporal bones #Peripheral neuropathy - Copper, vitamin E, RPR, B12, thiamine, protein electrophoresis, kappa/lambda ratio, immunofixation -EMG nerve conduction study Since his last seen in clinic, his is concerned that he continues to have worsening of his memory. He continues to have aggressive outbursts when he is irritable. He is currently on Aricept and memantine and has not noticed any improvement. She reports that his behaviors embarrassing and their neighbors are concerned that he is harming her because he becomes so aggressive. He has only been verbally aggressive. Ambulatory EEG showed mild to moderate generalized slowing. CT of the temporal bones did not show any disruption of the semicircular canals. He was found to have low B12 and was started on supplementation. EMG nerve conduction study confirmed findings of severe peripheral neuropathy. He does not think he would ever want to use his CPAP if he was diagnosed with ROSEMARIE. His most recent A1c was 6.3% he has family history of neuropathy Initial History: He presents with his who aids in providing additional history. He was in his usual state of health until March 23, 2017. 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 While he was at lunch, he passed out, fell backwards and hit his head on the ground. He did not go to the ER to get checked out. He had a head laceration. Approximately 6 weeks after, he began to experience a constellation of symptoms. He began to experience trouble with his memory especially his short-term memory. He would occasionally have lapses in memory and staring spells. He became much more aggressive and agitated along withdisinhibited. Minor things would cause him to become angry and he will curse at his and also his grandchildren. He also sometimes have episodes where he will show aggression while he is alone. He is typically amnestic to these events. While sleeping, he will sometimes wake up and start thrashing around and have no memory of these episodes. Is also experienced numbness and tingling of his distal extremities. He actually cut off his third digit on the right hand and did not feel any pain. He had this finger reattached. He is also steppedon a nail with his left foot and did not feel it even that pierced through his foot. He previously was having severe headaches but those have resolved. He experiences a room spinning sensation 1-2 times per month. 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 He has autophony. He had to undergo C-spine surgery. He has poor sleep and bad nightmares. Currently follows with psychiatry who manages his medication for mood. He has been on Depakote, hada rash with carbamazepine, topiramate affected his electrolyte levels. He is currently on lamotrigine but does not find it effective. He also does counseling. They were following at [facility] for management of the symptoms. He has undergone EEG that was read as normal. Brain MRI in 2018 was normal. 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 Current Outpatient Medications Medication Sig Dispense Refill allopurinol (ZYLOPRIM) 300 MG tablet Take 1 tablet by mouth once daily 90 tablet 0 atorvastatin (LIPITOR) 10 MG tablet TAKE 1 TABLET BY MOUTH NIGHTLY AT BEDTIME 90 tablet 0 chlorthalidone (HYGROTEN) 25 MG tablet Take 1 tablet by mouth once daily 90 tablet 0 Cyanocobalamin (B-12) 1000 MCG Tab Take 2,000 mcg by mouth daily for 14 days, THEN 1,000 mcg daily.100 tablet 3 donepezil (ARICEPT) 10 MG Tab Take 1 tablet (10 mg total) by mouth daily. 90 tablet 3 fish oil 1000 MG Cap capsule Take by mouth 2 (two) times daily. gabapentin (NEURONTIN) 600 MG tablet Take 1 tablet (600 mg total) by mouth 3 (three) times daily. 270 tablet 1 hydrOXYzine 50 MG tablet lamoTRIgine 100 MG tablet meclizine (ANTIVERT) 25 MG tablet Take 1 tablet (25 mg total) by mouth daily as needed. 30 tablet 0 memantine (NAMENDA) 5 MG tablet Take 1 tablet daily for one week; increase by 1 tablet every week until taking 4 tablets daily 120 tablet 0 modafinil 200 MG tablet Multiple Vitamins-Minerals (CENTRUM ADULTS OR) Take 1 tablet by mouth daily. tamsulosin 0.4 MG Cap Take 1 capsule (0.4 mg total) by mouth daily. testosterone cypionate 200 MG/ML injection venlafaxine 75 MG tablet vitamin D3, cholecalciferol, 1000 UNIT Tab tablet Take 2 tablets (2,000 Units total) by mouth daily. No current facility-administered medications for this visit. Past Medical History: Diagnosis Date Dementia (CMS/HCC) Excessive anger Gout Hypertension Kidney stone Loss of hearing Numbness Post-concussional syndrome Tremor Past Surgical History: Procedure Laterality Date ANESTH,CERV SPINE,CORD SURGERY HERNIA REPAIR 1971 LITHOTRIPSY Family History Problem Relation Name Age of Onset Cancer Mother Liver Disease Father No Known Problems Sister Prostate Cancer Brother Social History Tobacco Use Smoking status: Never Smokeless tobacco: Never Vaping Use Vaping Use: Never used Substance Use Topics Alcohol use: Never Drug use: Never Review of Systems Neurological: Positive for dizziness, loss of consciousness and headaches. Psychiatric/Behavioral: Positive for memory loss. Filed Vitals: 03/02/23 1113 BP: 135/81 Pulse: 71 Temp: 98.1 ??F (36.7 ??C) TempSrc: Temporal SpO2: 94% Weight: 99.3 kg (219 lb) Height: 5' 11 (1.803 m) GENERAL EXAMINATION Patient is in no apparent distress, cooperates with examination. NEUROLOGY EXAMINATION MENTAL STATUS: Patient was alert, awake and oriented x3, regards and follows commands. Normal language. CRANIAL NERVES: Pupils appear round reactive, visual dunlap are full, extraocular movements are grossly intact, face is symmetric, no dysarthria. MOTOR: Moves extremity symmetrically and antigravity SENSATION: Decreased sensation throughout REFLEXES: Deferred COORDINATION: No tremor. GAIT: Normal stride and base. Imaging and Pertinent Labs: See HPI Impression: Wily Bahena is a 67-year-old male with a past medical history significant for head trauma complicated by behavioral disturbance, peripheral neuropathy, hypertension who was referred to the NeurologyClinic for evaluation of postconcussive syndrome. He continues to struggle with disinhibition and aggression following his traumatic brain injury. Hehas failed multiple medications. Given a trial of propanolol to see if that can improve his symptoms. Recommend he continue to follow psychiatry. His vertigo could be related to contusions of the semicircular canals with his head injury. There were no structural abnormalities to account for symptoms. Progressive peripheral neuropathy, it is possible that he may have underlying genetic susceptibility. He was found to have low B12 which could be contributing. He also has prediabetes. Recommend thathe take gabapentin scheduled 3 times daily and also start alpha lipoic acid. Plan: #History of traumatic brain injury complicated by behavioral disturbance and memory loss - Start propanolol extended release 60 mg nightly and uptitrate as tolerated -Continue to follow psychiatry for management of behaviors -Can continue Aricept and memantine as prescribed #Vertigo and autophony - Continue to monitor, consider ENT referral #Peripheral neuropathy - Continue B12 supplementation - Continue management of diabetes -Take gabapentin 60 mg daily as prescribed - Start alpha lipoic acid 600 mg daily - Counseled on fall precautions #Caregiver -Given information of how to seek payment for being a caregiver We will refer to neuro rehabilitation at [facility] as I will be leaving practice Giuseppe Da Silva MD I spent 35 minutes today reviewing the patient's medical record, obtaining history, performing an exam, ordering medications, tests, and/or procedures, documenting in the medical record, counseling and educating the patient and family , reviewing and communicating test results, and coordinating care. documented in this encounter Plan of Treatment Upcoming Encounters Date Type Department Care Team (Late st Contact Info) Description 09/10/2024 11:30 AM OPERATIONS BUSINESS PARTNER Appointment [facility] [address] [place] [address] [place] [address] [facility] [address] [place] [phone] 10/25/2024 9:20 AM OPERATIONS BUSINESS PARTNER Office Visit [facility] Family & Internal Medicine - [address] [phone] Johnathon Braga DO [address] [place] [address] 11/21/2024 9:40 AM CDT Office Visit [facility] Multispecialty Care - [address], [address] [place] [address] Shelli Gonzalez MD [address] [place] [address] Scheduled Referrals Name Type Priority Associated Diagnoses Orde r Schedule Ambulatory referral to Neurology (OTHER) Referral Routine Traumatic brain injury with loss of consciousness, sequela Ordered: 03/02/2023 documented as of this encounter Visit Diagnoses Diagnosis Traumatic brain injury with loss of consciousness, sequela (CMS/HCC)- Primary documented in this encounter Additional Health Concerns Assessment Noted Time PHQ-9 Depression Total Score: 4 02/20/20 23 1:21 PM CDT documented as of this encounter Care Teams Registered Nurse Behavioral Health Relationship Specialty Start Date End Date Johnathon Braga DO [address] [place] [address] PCP - General FAMILY PRACTICE 10/31/20 documented as of this encounter
--- OUTSIDE RECORDS SUMMARY | 2024-09-03 07:52 | XMS_ITS | Encounter Summary ---
Author Organization [facility] Address [address] [place] [address]. [place], [place] [address] [place] [address] Care Team Providers Care Dumpman Name Role Phone Johnathon Braga DO Primary Care Provider + Reason for Visit * Reason Comments Hypertension Diabetes Follow up Encounter Details Date Type Department Care Team (Late st Contact Info) Description 06/08/2023 10:20 AM CDT Office Visit [facility] Family & Internal Medicine [facility] [address] [place] [address] Johnathon Braga DO [facility] [place], [place] [id number] Hypertension; Diabetes (Follow up ) Social History Tobacco Use Types Packs/Day Years Used Date Smoking Tobacco: Never Smokeless Tobacco: Never Tobacco Cessation:Counseling Given: Not Answered Alcohol Use Standard Drinks/Week Comments Never 0 [...] on file 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 Gender Identity Not on file Sexual Orientation Not on file documented as of this encounter Last Filed Vital Signs Vital Sign Reading Time Taken Comments Blood Pressure 106/52 06/08/2023 10:30 AM CDT Pulse 70 06/08/2023 10:30 AM CDT Temperature 36.8 ??C (98.2 ??F) 06/08/2023 10:30 AM C DT Respiratory Rate 16 06/08/2023 10:30 AM CDT Oxygen Saturation 96% 06/08/2023 10:30 AM CDT Inhaled Oxygen Concentration - - Weight 96.3 kg (212 lb 3.2 oz) 06/08/2023 10:30 AM CDT Height 180.3 cm (5' 11 ) 06/08/2023 10:30 AM CDT Body Mass Index 29.6 06/08/2023 10:30 AM CDT documented in this encounter Progress Notes * Johnathon P Omi, DO - 06/08/2023 10:20 AM CDT Images from the original note were not included. GENERAL OFFICE VISIT Encounter Date: 06/08/2023 Chief Complaint: 67-year-old male presents for Hypertension and Diabetes (Follow up ) HPI: At last OV, we started pt on metformin to help with his A1c. He was prediabetic. He has noted some diarrhea. Office Visit on 06/08/2023 Component Date Value Ref Range Status HGB A1C 06/08/2023 5.8 % Final Pt has been following with neurology, Dr. Hill, who has left the practice today. He was sent to Dr. Delvalle with [facility]. Pt was recommended to obtain an MRI and obtain sleep apnea. They changed his donepezilto morning dosing. He will see Dr. Gillis for sleep management. He did not tolerate memantine. Pt is on Aricept, lamotrigine, gabapentin, and modafinil. Pt has umbilical hernia. It is soft today, but it does become hard at times. No pain. It is easily reducible today. Review of Systems Constitutional: Negative for fever. Respiratory: Negative for shortness of breath. Cardiovascular: Negative for chest pain. Genitourinary: Negative for dysuria. Skin: Negative for rash. Neurological: See HPI Psychiatric/Behavioral: See HPI Patient Active Problem List Diagnosis Benign essential tremor Calculus of kidney Convergence insufficiency Dizziness Fatigue Hypertension Idiopathic gout Postconcussion syndrome Post-traumatic headache, not intractable Syncope Visual disturbance Irritability and anger Hypogonadism in male Lesion of ulnar nerve Prediabetes Past Medical History: Diagnosis Date Dementia (CMS/HCC) [...] on file Immunization History Administered Date(s) Administered [employer]) COVID-19 AD26 VACCINE 0.5 ML IM SUSP [...] by mouth once daily 90 tablet 1 Cyanocobalamin (B-12) 1000 MCG Tab Take 2,000 [...] mouth daily with breakfast. 90 tablet 1 modafinil 200 MG tablet Take 1 tablet (200 mg total) by mouth daily. Multiple Vitamins-Minerals (CENTRUM ADULTS OR) Take 1 tablet by mouth daily. propranolol LA (INDERAL LA) 60 MG 24 hr capsule Take 1 capsule (60 mg total) by mouth daily. 30 capsule 11 tamsulosin 0.4 MG Cap Take 1 capsule (0.4 mg total) by mouth daily. testosterone cypionate 200 MG/ML injection Inject 1 mL (200 mg total) into the muscle every 21 days. venlafaxine 75 MG tablet Take 1 tablet (75 mg total) by mouth 2 (two) times daily with meals. vitamin D3, cholecalciferol, 1000 UNIT Tab tablet [...] 1 tablet by mouth once daily Cyanocobalamin (B-12) 1000 MCG Tab Take 2,000 mcg by mouth daily for 14 days, THEN 1,000 mcg daily. donepezil (ARICEPT) 10 MG Tab Take 1 [...] mouth 3 (three) times daily as needed.) modafinil 200 MG tablet Take 1 tablet (200 mg total) by mouth daily. Multiple Vitamins-Minerals (CENTRUM ADULTS OR) Take 1 tablet by mouth daily. propranolol LA (INDERAL LA) 60 MG 24 hr capsule Take 1 capsule (60 mg total) by mouth daily. tamsulosin 0.4 MG Cap Take 1 capsule (0.4 mg total) by mouth daily. testosterone cypionate 200 MG/ML injection Inject 1 mL (200 mg total) into the muscle every 21 days. venlafaxine 75 MG tablet Take 1 tablet (75 mg total) by mouth 2 (two) times daily with meals. vitamin D3, cholecalciferol, 1000 UNIT Tab tablet Take 2 tablets (2,000 Units total) by mouth daily. No current facility-administered medications on file prior to visit. Review of patient's allergies indicates: Allergen Reactions Carbamazepine Rash and Swelling Objective: Filed Vitals: 06/08/23 1030 BP: 106/52 Pulse: 70 Resp: 16 Temp: 98.2 ??F (36.8 ??C) TempSrc: Skin SpO2: 96% Weight: 96.3 kg (212 lb 3.2 oz) Height: 5' 11 (1.803 m) Physical Exam Vitals and nursing note reviewed. HENT: Head: Normocephalic and atraumatic. Right Ear: External ear normal. Left Ear: External ear normal. Eyes: General: No scleral icterus. Conjunctiva/sclera: Conjunctivae normal. Cardiovascular: Rate and Rhythm: Normal rate and regular rhythm. Pulmonary: Effort: Pulmonary effort is normal. Abdominal: Palpations: Abdomen is soft. Tenderness: There is no abdominal tenderness. Hernia: A hernia is present. Musculoskeletal: Cervical back: Neck supple. Lymphadenopathy: Cervical: No cervical adenopathy. Skin: General: Skin is warm and dry. Findings: No rash. Neurological: Mental Status: He is alert. Comments: At baseline, full exam deferred Psychiatric: Mood and Affect: Affect normal. Comments: At baseline Assessment & Plan: Wily was seen today for hypertension and diabetes. Diagnoses and all orders for this visit: Prediabetes - A1C (BACK OFFICE) - COLLECT.CAPILLARY (FNGR,HEEL,EAR) - metFORMIN ER (GLUCOPHAGE-XR) 500 MG 24 hr tablet; Take 1 tablet (500 mg total) by mouth daily with breakfast. Dementia with mood disturbance, unspecified dementia severity, unspecified dementia type (CMS/HCC) Umbilical hernia without obstruction and without gangrene Discussion/Summary: Will change to Metformin XR to hopefully decrease diarrhea episodes; has improved A1c though. F/u with neurology Dr. Delvalle; can refer elsewhere if needed. Continue current meds. Can monitor hernia today; discussed red flag symptoms. F/u in 3 months or sooner if needed. Johnathon Braga DO documented in this encounter Plan of Treatment Upcoming Encounters Date Type Department Care Team (Late st Contact Info) Description 09/10/2024 11:30 AM SENIOR RESEARCH CONSULTANT Appointment [facility] [address] [place], [place] [phone] Zay Juá[place] [address] [facility] [address] [place] [phone] 10/25/2024 9:20 AM SENIOR RESEARCH CONSULTANT Office Visit [facility] Family & Internal Medicine - [place] [address] [place] [address] Johnathon Braga DO [address] [place] [address] 11/21/2024 9:40 AM CDT Office Visit [facility] Multispecialty Care - [address], [address] [place] [phone] Shelli Gonzalez MD [address] [place] [phone] documented as of this encounter Procedures Procedure Name Priority Date/Time Associated Diagnosis Comments COLLECT.CAPILLARY (FNGR,HEEL,EAR) Routine 06/08/2023 10:42 AM CDT Prediabetes HEMOGLOBIN, GLYCOSYLATED Routine 06/08/2023 Prediabetes documented in this encounter Results * A1C (BACK OFFICE) (06/08/2023) HGB A1C 5.8 % [facility] 06/08/2023 us Johnathon Braga DO LABORATORY Final Re sult [facility] [address] [place] [address], documented in this encounter Visit Diagnoses Diagnosis Prediabetes- Primary Other abnormal glucose Dementia with mood disturbance, unspecified dementia severity, unspecified dementia type (CMS/HCC HHS/HCC) Umbilical hernia without obstruction and without gangrene documented in this encounter Additional Health Concerns Assessment Noted Time PHQ-9 Depression Total Score: 4 02/20/20 23 1:21 PM CDT documented as of this encounter Care Teams Dumpman Relationship Specialty Start Date End Date Johnathon Braga DO [facility]1 [place] [address] PCP - General FAMILY PRACTICE 10/31/20 documented as of this encounter
--- OUTSIDE RECORDS SUMMARY | 2024-09-03 07:52 | XMS_ITS | Encounter Summary ---
Author Organization [facility] Address [address] [place] [address]. [place] [address] [place] [address] Care Team Providers Care Glue Jointer Feeder Name Role Phone Johnathon Braga Primary Care Provider + Encounter Details Date Type Department Care Team (Latest Contact Info) Description 04/28/2024 Travel Social History Tobacco Use Types Packs/Day [...] on file Legal Sex Male 11:26 AM CERTIFIED PERSONAL FINANCE COUNSELOR Gender Identity Not on file Sexual Orientation Not on file documented as of this encounter Plan of Treatment Upcoming Encounters Date Type Department Care Team (Late st Contact Info) Description 09/10/2024 11:30 AM CERTIFIED PERSONAL FINANCE COUNSELOR Appointment [facility] [address] [place] [address] Zay Juárez MD [address] [place] [phone] 10/25/2024 9:20 AM CERTIFIED PERSONAL FINANCE COUNSELOR Office Visit [facility] Family & Internal Medicine [address] [address] Johnathon Braga DO [address] [place] [address] 11/21/2024 9:40 AM CDT Office Visit [facility] Multispecialty Care - [facility] 3 [facility], [address] [place] [address] Shelli Gonzalez MD 3 [place] [address] documented as of this encounter Visit Diagnoses Not on filedocumented in this encounter Additional Health Concerns Assessment Noted Time PHQ-9 Depression Total Score: 4 07/20/20 23 11:48 AM CERTIFIED PERSONAL FINANCE COUNSELOR documented as of this encounter Care Teams Glue Jointer Feeder Relationship Specialty Start Date End Date Johnathon Braga DO [address] [place] [address] PCP - General FAMILY PRACTICE 10/31/20 documented as of this encounter
--- OUTSIDE RECORDS SUMMARY | 2024-09-03 07:52 | XMS_ITS | Encounter Summary ---
Author Organization [facility] Address [address] [place] [address]. [place] [address] [place] [address] Care Team Providers Care Cancer Registry Manager Name Role Phone Johnathon Braga Primary Care Provider + Encounter Details Date Type Department Care Team (Latest Contact Info) Description 05/21/2023 Scan [facility] Scanned, Doc [...] on file Legal Sex Male 11:26 AM DEVELOPMENT AND HOUSING DIRECTOR Gender Identity Not on file Sexual Orientation Not on file documented as of this encounter Plan of Treatment Upcoming Encounters Date Type Department Care Team (Late st Contact Info) Description 09/10/2024 11:30 AM DEVELOPMENT AND HOUSING DIRECTOR Appointment [facility] [address] [place] [address] Zay Juárez [place] [address] [phone] 10/25/2024 9:20 AM DEVELOPMENT AND HOUSING DIRECTOR Office Visit [facility] Family & Internal Medicine - [place] [address] [place] [address] Johnathon Braga DO [address] [place] [address] 11/21/2024 9:40 AM CDT Office Visit [facility] Multispecialty Care - [facility] 3 [facility], [address] [place] [address] Shelli Gonzalez MD 3 [place] [address] documented as of this encounter Visit Diagnoses Not on filedocumented in this encounter Additional Health Concerns Assessment Noted Time PHQ-9 Depression Total Score: 4 02/20/20 23 1:21 PM CDT documented as of this encounter Care Teams Cancer Registry Manager Relationship Specialty Start Date End Date Johnathon Braga DO [address] [place] [address] PCP - General FAMILY PRACTICE 10/31/20 documented as of this encounter
--- OUTSIDE RECORDS SUMMARY | 2024-09-03 07:52 | XMS_ITS | Encounter Summary ---
Author Organization [facility] Address [address] [place] [address]. [place] [address] [place] [address] Care Team Providers Care Portuguese Tutor Name Role Phone Johnathon Braga Primary Care Provider + Encounter Details Date Type Department Care Team (Latest Contact Info) Description 09/03/2023 Travel Social History Tobacco Use Types Packs/Day [...] on file Legal Sex Male 11:26 AM RIG MANAGER Gender Identity Not on file Sexual Orientation Not on file documented as of this encounter Plan of Treatment Upcoming Encounters Date Type Department Care Team (Late st Contact Info) Description 09/10/2024 11:30 AM RIG MANAGER Appointment [facility] [address] [place] [address] Zay Juárez MD [address] [place] [phone] 10/25/2024 9:20 AM RIG MANAGER Office Visit [facility] Family & Internal Medicine [address] [address] Johnathon Braga DO [address] [place] [address] 11/21/2024 9:40 AM CDT Office Visit [facility] Multispecialty Care - [facility] [address] [facility], [address] [place] [address] Shelli Gonzalez MD 3 [place] [address] documented as of this encounter Visit Diagnoses Not on filedocumented in this encounter Additional Health Concerns Assessment Noted Time PHQ-9 Depression Total Score: 4 07/20/20 23 11:48 AM RIG MANAGER documented as of this encounter Care Teams Portuguese Tutor Relationship Specialty Start Date End Date Johnathon Braga DO [address] [place] [address] PCP - General FAMILY PRACTICE 10/31/20 documented as of this encounter
--- OUTSIDE RECORDS SUMMARY | 2024-09-03 07:52 | XMS_ITS | Encounter Summary ---
Author Organization [facility] Address [address] [place] [address]. [place] [address] [place] [address] Care Team Providers Care Harp Repairer Name Role Phone Johnathon Braga Primary Care Provider + Encounter Details Date Type Department Care Team (Latest Contact Info) Description 2023 Travel Social History Tobacco Use Types Packs/Day [...] on file Legal Sex Male 11:26 AM CHIEF ESTIMATOR Gender Identity Not on file Sexual Orientation Not on file documented as of this encounter Plan of Treatment Upcoming Encounters Date Type Department Care Team (Late st Contact Info) Description 09/10/2024 11:30 AM CHIEF ESTIMATOR Appointment [facility] [address] [place] [address] Zay Juárez MD [address] [place] [phone] 10/25/2024 9:20 AM CHIEF ESTIMATOR Office Visit [facility] Medical Group Family & Internal Medicine [address] [address] Johnathon Braga DO [address] [place] [address] 11/21/2024 9:40 AM CDT Office Visit [facility] Medical Group Multispecialty Care - [facility] 3 [facility], [address] [place] [address] Shelli Gonzalez MD 3 [place] [address] documented as of this encounter Visit Diagnoses Not on filedocumented in this encounter Additional Health Concerns Assessment Noted Time PHQ-9 Depression Total Score: 4 07/20/20 23 11:48 AM CHIEF ESTIMATOR documented as of this encounter Care Teams Harp Repairer Relationship Specialty Start Date End Date Johnathon Braga DO [address] [place] [address] PCP - General FAMILY PRACTICE 10/31/20 documented as of this encounter
--- OUTSIDE RECORDS SUMMARY | 2024-09-03 07:52 | XMS_ITS | Encounter Summary ---
Author Organization [facility] Address [address] [place] [address]. [place], [place] [phone] [place] [address] Care Team Providers Care Wet Process Assistant Head Miller Name Role Phone Johnathon Braga DO Primary Care Provider + Reason for Visit * Reason Onset Date Comments Results 04/22/2024 Encounter Details Date Type Department Care Team (Late st Contact Info) Description 04/22/2024 Telephone [facility] Family & Internal Medicine [facility] [address] [place] [address] Johnathon Braga DO [address] [place], [place] [phone] Results Social History Tobacco Use Types Packs/Day [...] on file Legal Sex Male 11:26 AM DIRECTOR OF CATERING Gender Identity Not on file Sexual Orientation Not on file documented as of this encounter Progress Notes * Johnathon Braga DO - 04/22/2024 8:48 AM CDT No additional testing needed; can continue f/u with urology. * Tonia Mireles MA - 04/22/2024 8:31 AM CDT Spoke with Nayana, pt's , and advised her of results. The patient does have kidney stones and is seeing urology for this. Please advise if you want any other testing. ----- Message from Dr. Johnathon Braga sent at 04/20/2024 10:09 PM CDT ----- No notable bowel related pathology. If pt has any symptoms of renal stones, we can look further into possible kidney stones. If not having symptoms, can be monitored. documented in this encounter Plan of Treatment Upcoming Encounters Date Type Department Care Team (Late st Contact Info) Description 09/10/2024 11:30 AM DIRECTOR OF CATERING Appointment [facility] [address] [place] [phone] [place]ay [place] [address] [address] 10/25/2024 9:20 AM DIRECTOR OF CATERING Office Visit [facility] Medical Group Family & Internal Medicine - [place] [address] [place] [address] Johnathon Braga DO [facility] [place] [address] 11/21/2024 9:40 AM CDT Office Visit [facility] Multispecialty Care - [address], [address] [place] [phone] Shelli Gonzalez MD 3 [place] [address] documented as of this encounter Visit Diagnoses Not on filedocumented in this encounter Additional Health Concerns Assessment Noted Time PHQ-9 Depression Total Score: 4 07/20/20 23 11:48 AM DIRECTOR OF CATERING documented as of this encounter Care Teams Wet Process Assistant Head Miller Relationship Specialty Start Date End Date Johnathon Braga DO [address] [place] [address] PCP - General FAMILY PRACTICE 10/31/20 documented as of this encounter
--- OUTSIDE RECORDS SUMMARY | 2024-09-03 07:52 | XMS_ITS | Encounter Summary ---
Author Organization [facility] Address [address] [place] [address]. [place], [place] [address] [place] [address] Care Team Providers Care Supervisor Logging Name Role Phone Johnathon Braga Timbo SHELTON Primary Care Provider + Encounter Details Date Type Department Care Team (Latest Contact Info) Description 04/18/2024 2:58 PM CDT - 04/18/2024 11:59 PM CDT Hospital Encounter [facility] Cardiopulmonary Services [address] [place], [place] [phone] [place]ay [place] [address] [facility] [address] [place] [address] Discharge Disposition: Home or Self Care (Routine Discharge) Social History Tobacco Use Types Packs/Day Years [...] on file Legal Sex Male 11:26 AM RANCH SUPERVISOR Gender Identity Not on file Sexual [...] complication, without long-term current use of insulin ([facility] HHS/HCC) 1 strip by Other route as needed. Use once daily in the AM while fasting. 100 strip 1 11/16/2023 Glucose Blood ([facility] GLUCOSE METER TEST STRIPS) test stripIndications:Ty pe 2 diabetes mellitus without complication, without long-term current use of insulin ([facility] HHS/HCC) 1 strip by Other route as [...] by mouth once daily 90 tablet 02/13/2023 atorvastatin (LIPITOR) 10 MG tabletIndications:H yperlipidemia take [...] complication, without long-term current use of insulin ([facility] HHS/HCC) TAKE 1 TABLET BY MOUTH ONCE DAILY WITH BREAKFAST DO NOT BREAK OR CRUSH TABLET 30 tablet 1 04/04/2024 4 Glucose Blood (ACCU-CHEK GUIDE) test stripIndications:Ty pe 2 diabetes mellitus without complication, without long-term current use of insulin (CMS/[facility] HHS/HCC) 1 strip by Other route every [...] brain injury with loss of consciousness, sequela ([facility]) Take 1 capsule (60 mg total) by mouth daily. 30 capsule 11 09/03/2023 4 documented as of this encounter Plan of Treatment Upcoming Encounters Date Type Department Care Team (Late st Contact Info) Description 09/10/2024 11:30 AM RANCH SUPERVISOR Appointment [facility] [address] [place] [address] Zay Juá[place] [address] [facility] [address] [place] [address] 10/25/2024 9:20 AM RANCH SUPERVISOR Office Visit [facility] Family & Internal Medicine - [place] [address] [place] [address] Johnathon Braga, [address] [place] [address] 11/21/2024 9:40 AM CDT Office Visit [facility] Multispecialty Care - [address], [address] [place] [phone] Shelli Gonzalez MD [address] [place] [address] documented as of this encounter Procedures Procedure Name Priority Date/Time Associated Diagnosis Comments ECG 12-LEAD Routine 04/18/2024 3:16 PM CDT Preop testing documented in this encounter Results * ECG 12-Lead (04/18/2024 3:16 PM CDT) 04/18/2024 3:16 PM CDT Narrative [facility] RAD - 04/18/2024 5:03 PM CDT ?[facility] ? Test Date: ?2024-04-18 Pat Name: ? WILY BAHENA ? Department: ?? 85 ? Room: ? Gender: ? Male ? Patient Escort: ?? : ?1955 ? Requested By: BASHIR AVILEZ Order Number: [id number] ? Reading MD: ?? Pineda Jimenez ? Measurements Intervals ?[place] ? Rate: ? 52 ? P: ?64 WY: ? 187 ?QRS: ?-1 QRSD: ? 85 ? T: ?17 QT: ? 437 ? QTc: ?408 ? Interpretive Statements SINUS BRADYCARDIA Compared to ECG 12/03/2020 13:26:41 Sinus rhythm no longer present Procedure Note Pineda Jimenez MD - 04/18/2024 [facility] Test Date: 2024-04-18 Pat Name: WILY BAHENA Department: 85 Room: Gender: Male Patient Escort: : 1955 Requested By: BASHIR AVILEZ Order Number: [id number] Reading MD: Pineda Jimenez Measurements Intervals [place] Rate: 52 P: 64 WY: 187 QRS: -1 QRSD: 85 T: 17 QT: 437 QTc: 408 Interpretive Statements SINUS BRADYCARDIA Compared to ECG 12/03/2020 13:26:41 Sinus rhythm no longer present us Bashir Avilez MD ECG ORDERABLES Final Result [facility] documented in this encounter Visit Diagnoses Diagnosis Preop testing Preoperative examination, unspecified documented in this encounter Additional Health Concerns Assessment Noted Time PHQ-9 Depression Total Score: 4 07/20/20 23 11:48 AM RANCH SUPERVISOR documented as of this encounter Care Teams Supervisor Logging Relationship Specialty Start Date End Date Johnathon Braga DO [address] [place] [address] PCP - General FAMILY PRACTICE 10/31/20 documented as of this encounter
--- OUTSIDE RECORDS SUMMARY | 2024-09-03 07:52 | XMS_ITS | Encounter Summary ---
Author Organization [facility] Address [address] [place] [address]. [place], [place] [address] [place] [address] Care Team Providers Care Custody Officer Name Role Phone Johnathon Braga Primary Care Provider + Encounter Details Date Type Department Care Team (Latest Contact Info) Description 04/18/2024 2:55 PM CDT - 04/18/2024 2:57 PM CDT Hospital Encounter [facility] [address] [place] [address] Zay [place] [address] [facility] [address] [place] [address] Discharge Disposition: Home or Self [...] on file Legal Sex Male 11:26 AM RECEIVER/LABORER Gender Identity Not on file Sexual Orientation [...] complication, without long-term current use of insulin ([facility] HHS/HCC) 1 strip by Other route as needed. Use once daily in the AM while fasting. 100 strip 1 11/16/2023 Glucose Blood ([employer]S GLUCOSE METER TEST STRIPS) test stripIndications:Ty pe 2 diabetes mellitus without complication, without long-term current use of insulin ([facility] HHS/[facility]) 1 strip by Other route as needed. [...] complication, without long-term current use of insulin ([facility] HHS/HCC) TAKE 1 TABLET BY MOUTH ONCE DAILY WITH BREAKFAST DO NOT BREAK OR CRUSH TABLET 30 tablet 1 04/04/2024 4 Glucose Blood (ACCU-CHEK GUIDE) test stripIndications:Ty pe 2 diabetes mellitus without complication, without long-term current use of insulin ([facility] HHS/HCC) 1 strip by Other route every [...] complication, without long-term current use of insulin ([facility] HHS/HCC) 1 Lancet by Does not apply route daily as needed. Once daily. Use accu-check brand. 100 each 1 11/26/2023 4 PARoxetine (PAXIL) 20 MG tablet Take 2 tablets (40 mg total) by mouth daily. 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 30 capsule 11 09/03/2023 4 documented as of this encounter Plan of Treatment Upcoming Encounters Date Type Department Care Team (Late st Contact Info) Description 09/10/2024 11:30 AM RECEIVER/LABORER [facility] [address] [place] [address] Zay Juá[place] [address] [facility] [address] [place] [address] 10/25/2024 9:20 AM RECEIVER/LABORER Office Visit [facility] Internal Medicine [address] [place] [place] [address] Johanthon Braga DO [address] [place] [address] 11/21/2024 9:40 AM CDT Office Visit [facility] Multispecialty Care - [address], [address] [place] [phone] Shelli Gonzalez MD [address] [place] [address] documented as of this encounter Procedures Procedure Name Priority Date/Time Associated Diagnosis Comments MRSA SCREENING Routine 04/18/2024 3:06 PM CDT Preop testing documented in this encounter Results * MRSA SCREENING (04/18/2024 3:06 PM CDT) SPEC DESCRIPTION NASAL 04/18/2024 3:02 PM CDT [facility] SPECIAL REQUESTS NO SPECIAL REQUEST 04/18/2024 3:02 PM CDT [facility] CULTURE RESULT NO METHICILLIN RESISTANT STAPHYLOCOCCUS AUREUS ISOLATED 04/20/2024 6:56 AM CDT [facility] SPECIMEN FROM INTERNAL NOSE / Unknown 04/18/2024 3:06 PM CDT 04/18/2024 3:07 PM CDT us Zay Juárez MD MICROBIOLOGY - GENERAL ORDERABLE S Final Result [facility] [address] [place] [address], [place] [phone] [facility] [address] [place] [address], [place] [phone] documented in this encounter Visit Diagnoses Diagnosis Preop testing Preoperative examination, unspecified documented in this encounter Additional Health Concerns Assessment Noted Time PHQ-9 Depression Total Score: 4 07/20/20 23 11:48 AM RECEIVER/LABORER documented as of this encounter Care Teams Custody Officer Relationship Specialty Start Date End Date Johnathon Braga DO [address] [place] [address] PCP - General FAMILY PRACTICE 10/31/20 documented as of this encounter
--- OUTSIDE RECORDS SUMMARY | 2024-09-03 07:52 | XMS_ITS | Encounter Summary ---
Author Organization [facility] Address [address] [place] [address]. [place], [place] [address] [place] [address] Care Team Providers Care Carbide Powder Processor Name Role Phone Johnathon Braga DO Primary Care Provider + Reason for Visit * Reason Comments Allied Health Visit Flu vaccine Encounter Details Date Type Department Care Team (Latest Contact Info) Description 07/09/2023 11:40 AM CDT Allied Health/Nurse Visit [facility] Family & Internal Medicine [facility] [address] [place] [address] Johnathon Braga DO [facility] [place] [address] Allied Health Visit (Flu vaccine) Social History Tobacco Use Types Packs/Day Years [...] on file Legal Sex Male 11:26 AM GREASE RACK WORKER Gender Identity Not on file Sexual Orientation Not on file documented as of this encounter Plan of Treatment Upcoming Encounters Date Type Department Care Team (Late st Contact Info) Description 09/10/2024 11:30 AM GREASE RACK WORKER Appointment [facility] [address] [place] [address] Zay Juá[place] [address] [facility] [address] [place] [address] 10/25/2024 9:20 AM GREASE RACK WORKER Office Visit [facility] - [place] [address] [place] [address] Johnathon Braga DO [address] [place] [address] 11/21/2024 9:40 AM CDT Office Visit [facility] Multispecialty Care - [facility] [address] [facility], [address] [place] [address] Shelli Gonzalez MD 3 [place] [address] documented as of this encounter Visit Diagnoses Diagnosis Need for prophylactic vaccination and inoculation against influenza- Primary documented in this encounter Additional Health Concerns Assessment Noted Time PHQ-9 Depression Total Score: 4 02/20/20 23 1:21 PM CDT documented as of this encounter Care Teams Carbide Powder Processor Relationship Specialty Start Date End Date Johnathon Braga DO [address] [place] [address] PCP - General FAMILY PRACTICE 10/31/20 documented as of this encounter
--- OUTSIDE RECORDS SUMMARY | 2024-09-03 07:52 | XMS_ITS | Encounter Summary ---
Author Organization [facility] Address [address] [place] [address]. 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[facility]) Procedures OFFICE/OUTPT VISIT,NEW,LEVL III OFFICE/OUTPT VISIT,NEW,LEVL IV OFFICE/OUTPT VISIT,NEW,LEVL V OFFICE/OUTPT VISIT,EST,LEVL III OFFICE/OUTPT VISIT,EST,LEVL IV OFFICE/OUTPT VISIT,EST,LEVL V Nikki Da Silva MD Phone: tel: fax: [place] [address] [place] [address] Phone: tel: fax: Referral ID Status Reason Start Date Expiration Date V isits Requested Visits Authorized [id number] Closed Specialty Services 04/03/2023 04/03/2024 100 100 Reason for Visit * Reason Onset Date Comments Question 04/02/2023 Returned Call 04/02/2023 Encounter Details Date Type Department Care Team (Late st Contact Info) Description 04/02/2023 Telephone [facility] Mult[facility]ialty Care - [facility] [address] [facility], [address] [place] [phone] Nikki Da Silva MD [address] [place] [address] Question; Returned Call Social History Tobacco Use Types Packs/Day Years [...] on file Legal Sex Male 11:26 AM PLUNGER MACHINE OPERATOR Gender Identity Not on file Sexual Orientation Not on file documented as of this encounter Progress Notes * Klarissa Orantes RN - 04/08/2023 1:24 PM CDT Records faxed. * Suad Canela - 04/08/2023 1:[address] Hill referred pt to Dr Sidney Sesay. His office called today to request records to be faxed to them for this appt. Attn Amelia * Nikki Da Silva MD - 04/03/2023 8:12 AM CDTAddended by: NIKKI DA SILVA on: 04/03/2023 08:12 AM Modules accepted: Orders * Nikki Da Silva MD - 04/03/2023 8:09 AM CDT Ok, I will send a referral there. * Kate Julien MA - 04/02/2023 2:18 PM CDT Spoke to patients and they are ok with going to [facility]. * Simone Velazquez - 04/02/2023 2:12 PM CDT Pt returned missed call. Please oleg back at [phone] * Kate Julien MA - 04/02/2023 2:00 PM CDT Called Nayana, no answer, left a message requesting a return call. * Nikki Da Silva MD - 04/02/2023 1:52 PM CDT Ok, are they OK with going to [facility]. They have PM&R (rehab doctors ) there * Neeru Velarde - 04/02/2023 10:17 AM CDTSumlexi: Nayana called re: referral to yvan Lopez Issues the DrJeff Does not treat his condition. Catherine Hunter did not follow through and call her back. Catherine Hunter stated that they sent us a letter in March stating that they were not able to treat this pt. Nayana is wanting a call back to discuss what is the next course of action to find a new neurologist for Wily. Thank you documented in this encounter Plan of Treatment Upcoming Encounters Date Type Department Care Team (Late st Contact Info) Description 09/10/2024 11:30 AM PLUNGER MACHINE OPERATOR Appointment [facility] [address] [place] [address] Zay Juá[place] [address] [facility] [address] [place] [address] 10/25/2024 9:20 AM PLUNGER MACHINE OPERATOR Office Visit [facility] Medical Group Family & Internal Medicine [address] [phone] Johnathon Braga DO [address] [place] [address] 11/21/2024 9:40 AM CDT Office Visit [facility] Multispecialty Care - [address], [address] [place] [phone] Shelli Gonzalez MD [address] [place] [address] Scheduled Referrals Name Type Priority Associated Diagnoses Orde r Schedule Ambulatory Referra to Physical Medicine and Rehabilitation Referral Routine Traumatic brain injury with loss of consciousness, sequela Ordered: 04/03/2023 documented as of this encounter Visit Diagnoses Diagnosis Traumatic brain injury with loss of consciousness, sequela (CMS/HCC)- Primary documented in this encounter Additional Health Concerns Assessment Noted Time PHQ-9 Depression Total Score: 4 02/20/20 23 1:21 PM CDT documented as of this encounter Care Teams Bath Mixer Relationship Specialty Start Date End Date Johnathon Braga DO [address] [place] [phone] PCP - General FAMILY PRACTICE 10/31/20 documented as of this encounter
--- OUTSIDE RECORDS SUMMARY | 2024-09-03 07:52 | XMS_ITS | Encounter Summary ---
Author Organization [facility] Address [address] [place] [address]. [place], [place] [address] [place] [address] Care Team Providers Care Proof Technician Helper Name Role Phone Johnathon Braga DO Primary Care Provider + Reason for Visit * Reason Comments Image (SCAN) Encounter Details Date Type Department Care Team (Latest Contact Info) Description 02/09/2024 Scan HEALTH INFO SRVCS Scanned, Doc Med [...] on file Legal Sex Male 11:26 AM SCRAP SAWYER Gender Identity Not on file Sexual Orientation Not on file documented as of this encounter Plan of Treatment Upcoming Encounters Date Type Department Care Team (Late st Contact Info) Description 09/10/2024 11:30 AM SCRAP SAWYER Appointment [facility] [address] [place] [address] Zay Juárez [place] [address] [address] 10/25/2024 9:20 AM SCRAP SAWYER Office Visit [facility] Family & Internal Medicine - [place] [address] [place] [address] Johnathon Braga DO [address] [place] [address] 11/21/2024 9:40 AM CDT Office Visit [facility] Multispecialty Care - [facility] [address] [facility], [address] [place] [address] Shelli Gonzalez MD 3 [place] [address] documented as of this encounter Procedures Procedure Name Priority Date/Time Associated Diagnosis Comments IMAGE GENERIC 02/09/2024 documented in this encounter Results * IMAGE GENERIC (02/09/2024) Anatomical Region Laterality Modality Other 02/09/2024 us Doc Med Group Scanned SCANNING Final Resu lt documented in this encounter Visit Diagnoses Not on filedocumented in this encounter Additional Health Concerns Assessment Noted Time PHQ-9 Depression Total Score: 4 07/20/20 23 11:48 AM SCRAP SAWYER documented as of this encounter Care Teams Proof Technician Helper Relationship Specialty Start Date End Date Johnathon Braga DO [address] [place] [address] PCP - General FAMILY PRACTICE 10/31/20 documented as of this encounter
--- OUTSIDE RECORDS SUMMARY | 2024-09-03 07:52 | XMS_ITS | Encounter Summary ---
Author Organization [facility] Address [address] [place] [address]. [place], [place] [address] [place] [address] Care Team Providers Care Tromper Name Role Phone Johnathon Braga DO Primary Care Provider + Reason for Visit * Consultation (Routine) - Authorized Specialty Diagnoses / Procedures Referred By Jonah t Referred To Contact DIABETES EDUCATION / [facility] Diabetes and Nutrition Diagnoses Type 2 diabetes mellitus without complication, without long-term current use of insulin ([facility]) Procedures OFFICE/OUTPATIENT NEW LOW MDM 30-44 MINUTES OFFICE/OUTPT VISIT,NEW,LEVL IV OFFICE/OUTPT VISIT,NEW,LEVL V OFFICE/OUTPT VISIT,EST,LEVL III OFFICE/OUTPT VISIT,EST,LEVL IV OFFICE/OUTPT VISIT,EST,LEVL V Johnathon Braga DO [address] [place] [address] Phone: tel: fax: [facility] [address] [place] [address] Phone: tel: fax: Referral ID Status Reason Start Date Expiration Date Visits Requested Visits Authorized [id number] Authorized Specialty Services 11/16/2023 11/15/2024 25 25 Encounter Details Date Type Department Care Team (Latest Contact Info) Description 02/01/2024 12:00 PM CDT - 02/01/2024 11:59 PM CDT Hospital Encounter [facility] [address] [place] [address] Johnathon Braga, [address] [place] [address] Discharge Disposition: Home or Self Care (Routine [...] on file Legal Sex Male 11:26 AM CLINICAL ALLERGIST Gender Identity Not on file Sexual Orientation Not on file documented as of this encounter Medications at Time of Discharge Alpha-Lipoic Acid 600 MG Tab Take 1 tablet by mouth daily. fish oil 1000 MG Cap capsule Take by mouth 2 (two) times daily. gabapentin (NEURONTIN) 600 MG tabletIndications:Pe ripheral polyneuropathy take 1 tablet by mouth three times daily 270 tablet 01/18/2024 Glucose Blood (ACCU-CHEK GUIDE) test stripIndications:Typ e 2 diabetes mellitus without complication, without long-term current use of insulin ([facility] HHS/HCC) 1 strip by Other route as needed. Use once daily in the AM while fasting. 100 strip 1 11/16/2023 Glucose Blood ([facility]S GLUCOSE METER TEST STRIPS) test stripIndications:Typ e 2 diabetes mellitus without complication, without long-term current use of insulin ([facility] HHS/HCC) 1 strip by Other route as needed. Use as instructed. Generic brand. 100 strip 3 11/26/2023 hydrOXYzine 50 MG tablet Take by mouth every 8 (eight) hours as needed. 10/29/2020 lamoTRIgine 100 MG tablet Take 1 tablet (100 mg total) by mouth 2 (two) times daily. 12/31/2020 meclizine (ANTIVERT) 25 MG tabletIndications:Di zziness Take 1 tablet (25 mg total) by [...] by mouth daily. allopurinol (ZYLOPRIM) 300 MG tabletIndications:Id iopathic gout, unspecified chronicity, unspecified site Take 1 tablet by mouth once daily 90 tablet 02/13/2023 4 atorvastatin (LIPITOR) 10 MG tabletIndications:Hy perlipidemia take 1 tablet by mouth nightly at bedtime 90 tablet 11/09/2023 4 chlorthalidone (HYGROTEN) 25 MG tabletIndications:Es sential hypertension Take 1 tablet by mouth once daily 90 tablet 01/22/2024 4 donepezil (ARICEPT) 10 MG TabIndications:Memor y loss Take 1 tablet (10 mg total) by mouth daily. 90 tablet 3 09/03/2023 4 glipiZIDE XL 5 MG 24 hr tabletIndications:Ty pe 2 diabetes mellitus without complication, without long-term current use of insulin ([facility] HHS/HCC) Take 1 tablet (5 mg total) by mouth daily with breakfast. Do not break or crush tablet 30 tablet 2 11/16/2023 4 Lancets MiscIndications:Type 2 diabetes mellitus without complication, without long-term current use of insulin ([facility]/HCC HHS/HCC) 1 Lancet by Does not apply route daily as needed. Once daily. Use accu-check brand. 100 each 1 11/26/2023 4 PARoxetine (PAXIL) 20 MG tablet Take 2 tablets (40 mg total) by mouth daily. 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 30 capsule 11 09/03/2023 documented as of this encounter Progress Notes * Kika Ramires, RD - 02/01/2024 12:00 PM CDT DIETITIAN OUTPATIENT MEDICAL NUTRITION THERAPY REPORT Patient: Wily Bahena : 1955 Date of visit: February 01, 2024 Total Visit Time: 30 minutes Individual(s) educated: [x] Patient [x] Spouse/ significant other [] Family member [] Caregiver Assessment: Initial Assessment Physician referring diagnosis: E11.9 (ICD-10-CM) - Type 2 diabetes mellitus without complication, without long-term current use of insulin (CMS/HCC HHS/HCC) NUTRITION ASSESSMENT CLIENT HISTORY Age: 68-year-old male Past Medical History: Diagnosis Date Dementia (CMS/HCC HHS/HCC) Excessive anger Gout Hypertension Kidney stone Loss of hearing Numbness Post-concussional syndrome Tremor ANTHROPOMETRICS Height: Ht Readings from Last 1 Encounters: 11/16/23 1.803 m (5' 11 ) Weight: Wt Readings from Last 3 Encounters: 11/16/23 108.8 kg (239 lb 14.4 oz) 09/09/23 104.9 kg (231 lb 4.8 oz) 09/03/23 102.5 kg (226 lb) BMI: 33.3 BMI Assessment: Grade 1 Obesity BIOCHEMICAL DATA, TESTS, PROCEDURES HGB A1C Date Value Ref Range Status 11/16/2023 7.0 % Final CHOLESTEROL Date Value Ref Range Status 02/23/2023 154 <200 mg/dL Final LDL (CALCULATED) Date Value Ref Range Status 02/23/2023 82 mg/dL (calc) Final Comment: Reference range: <100 Desirable range <100 mg/dL for primary prevention; <70 mg/dL for patients with CHD or diabetic patients with > or = 2 CHD risk factors. LDL-C is now calculated using the Yifan calculation, which is a validated novel method providing better accuracy than the Friedewald equation in the estimation of LDL-C. Jimbo POWELL et al. YAMILET. 2013;310(19): 6098-9922 (http://education.Promuc.FineEye Color Solutions/faq/IJW137) HDL Date Value Ref Range Status 02/23/2023 42 > OR = 40 mg/dL Final TRIGLYCERIDES Date Value Ref Range Status 02/23/2023 207 (H) <150 mg/dL Final Comment: If a non-fasting specimen was collected, consider repeat triglyceride testing on a fasting specimen if clinically indicated. Marian et al. J. of Clin. Lipidol. 2015;9:129-169. FOOD AND NUTRITION-RELATED HISTORY Previous diet education: No This is a new diagnosis of diabetes for the patient. He stated he has a hx of prediabetes. He does not always consume breakfast and/or lunch. May not get hungry till around noon. He seems to graze or snack throughout the day. Snacks can be chips, fruit, pistachios. Him and his have evening meal anywhere between 5-7 p.m. They will have a variety of proteins with starch and veggies or spaghetti, lasagna, or soup. He has been reducing his soda intake to only one per day (was 3-4) and he is trying to increase water intake. He also has been reducing his sweets. He does monitor his fasting blood sugars - this morning 131. NUTRITION DIAGNOSIS Food and nutrition related knowledge deficit related to lack of prior sufficient education as evidenced by patient expressing confusion over appropriate eating pattern for health related condition and goals. NUTRITION INTERVENTION Nutrition education providing recommended modifications. Education provided on the carbohydrate and the non-carbohydrate food groups, basic carbohydrate counting, the importance of having regular meal and snack intake to provide carbohydrate consistency from meal to meal, importance of fiber-filled carbohydrates, balancing meals using the plate method, how to read Nutrition Facts labels for proper carbohydrate counting, eating away from the home, nutrient dense snack combinations, and patient stated his questions answered. Nutrition Prescription: 4 servings carbohydrate per meal and 2 servings carbohydrate per snack Teaching methods: Provided written and visual handouts and verbally reviewed handouts. Food models and food labels used. Materials provided: Planning Healthy Meals, Snack Smart, Perfect Meals by the Plate, diabetesfoodhub.org, Dining Out with Diabetes Level of understanding: Good. Patient is able to understand nutritional guidelines Motivation/receptiveness: Good Expected compliance: Good Response to education: [x] Asks questions [x] Verbalizes understanding [] Demonstrates appropriately MONITORING/EVALUATION Adherence to nutrition related recommendations/prescription to assist with blood glucose control and improvement to A1C less than 7% or as recommended by physician. Weight loss of 1-2 lbs. per week towards a 7-10% weight loss from baseline weight. Follow-up plan: as needed; he has a follow-up scheduled with doctor February 15. RD contact information provided. Patient encouraged to call or e-mail with any nutrition related questions. KIKA RAMIRES RD 02/01/24, 12:53 PM documented in this encounter Plan of Treatment Upcoming Encounters Date Type Department Care Team (Late st Contact Info) Description 09/10/2024 11:30 AM CLINICAL ALLERGIST Appointment [facility] [address] [place], [place] [phone] Zay Juárez [place] [address] [facility] [address] [place] [address] 10/25/2024 9:20 AM CLINICAL ALLERGIST Office Visit [facility] Family & Internal Medicine - [address] [address] Johnathon Braga DO [address] [place] [address] 11/21/2024 9:40 AM CDT Office Visit [facility] Multispecialty Care - [address], [address] [place] [phone] Shelli Gonzalez MD [address] [place] [address] documented as of this encounter Visit Diagnoses Not on filedocumented in this encounter Additional Health Concerns Assessment Noted Time PHQ-9 Depression Total Score: 4 07/20/20 23 11:48 AM CLINICAL ALLERGIST documented as of this encounter Care Teams Tromper Relationship Specialty Start Date End Date Johnathon Braga, [facility] [place] [address] PCP - General FAMILY PRACTICE 10/31/20 documented as of this encounter
--- OUTSIDE RECORDS SUMMARY | 2024-09-03 07:52 | XMS_ITS | Encounter Summary ---
Author Organization [facility] Address [address] [place] [address]. [place], [place] [id number] [place] [id number] Care Team Providers Care Instrument Adjuster Name Role Phone Johnathon Braga DO Primary Care Provider + Reason for Referral * Surgical (Urgent) - Authorized Specialty Diagnoses / Procedures Referred By Jonah weber Referred To Contact SURGERY Diagnoses Umbilical hernia without obstruction and without gangrene Procedures OFFICE/OUTPATIENT NEW LOW MDM 30-44 MINUTES OFFICE/OUTPT VISIT,NEW,LEVL IV OFFICE/OUTPT VISIT,NEW,LEVL V OFFICE/OUTPT VISIT,EST,LEVL III OFFICE/OUTPT VISIT,EST,LEVL IV OFFICE/OUTPT VISIT,EST,LEVL V Johnathon Braga DO [address] [place] [address] Phone: tel: fax: [facility] General Surgery [address], [address] [place] [address] Phone: tel: fax: Referral ID Status Reason Start Date Expiration Date V isits Requested Visits Authorized [id number] Authorized 01/12/2024 02/11/2025 99 99 Scheduling Instructions Increased pain and patients is having heart surgery on 01/20/2024. Would like to have appt at least scheduled prior to her surgery. Reason for Visit * Reason Onset Date Comments Advice 01/12/2024 Encounter Details Date Type Department Care Team (Late st Contact Info) Description 01/12/2024 Telephone [facility] Family & Internal Medicine [facility] [address] [place] [address] Johnathon Braga DO [address] [place] [address] Advice Social History Tobacco Use Types Packs/Day Years [...] on file Legal Sex Male 11:26 AM MISSILEMAN Gender Identity Not on file Sexual Orientation Not on file documented as of this encounter Progress Notes * Tonia Greenberg MA - 01/12/2024 11:24 AM CDTAddended by: TONIA GREENBERG on: 01/12/2024 11:24 AM Modules accepted: Orders * Tonia Greenberg MA - 01/12/2024 11:23 AM CDT Referral placed. * Johnathon Braga DO - 01/12/2024 10:47 AM CDT If this is becoming painful, he should be referred. OK to refer. * Tonia Greenberg MA - 01/12/2024 9:35 AM CDT Spoke to patient's . She states PCP has evaluated the area in the past and stated when it started to bother him let PCP know. Ok to place urgent referral to general surgery. The patient's is having heart surgery on 01/20/2024 and would like to have scheduled before then. Please advise. * Klarissa Narayan - 01/12/2024 8:52 AM CDT Pts called in stating pt has hernia around belly button. Pts was wondering what they needto do or where they need to go to get it looked at. Please advise. documented in this encounter Plan of Treatment Upcoming Encounters Date Type Department Care Team (Late st Contact Info) Description 09/10/2024 11:30 AM MISSILEMAN Appointment [facility] [address] [place] [address] [place] [address] [facility] [address] [place] [phone] 10/25/2024 9:20 AM MISSILEMAN Office Visit [facility] Family & Internal Medicine - [address] [phone] Johnathon Braga DO [address] [place] [id number] 11/21/2024 9:40 AM CDT Office Visit [facility] Medical [facility] - [address], [address] [place] [phone] Shelli Gonzalez MD [address] [place] [phone] Scheduled Referrals Name Type Priority Associated Diagnoses Orde r Schedule Ambulatory referral to General Surgery (OTHER) Referral Routine Umbilical hernia without obstruction and without gangrene Ordered: 01/12/2024 documented as of this encounter Visit Diagnoses Diagnosis Umbilical hernia without obstruction and without gangrene- Primary documented in this encounter Additional Health Concerns Assessment Noted Time PHQ-9 Depression Total Score: 4 07/20/20 23 11:48 AM MISSILEMAN documented as of this encounter Care Teams Instrument Adjuster Relationship Specialty Start Date End Date Johnathon Braga DO [address] [place] [id number] PCP - General FAMILY PRACTICE 10/31/20 documented as of this encounter
--- OUTSIDE RECORDS SUMMARY | 2024-09-03 07:52 | XMS_ITS | Encounter Summary ---
Author Organization [facility] Address [address] [place] [address]. [place], [place] [id number] [place] [id number] Care Team Providers Care Senior Technical Analyst Name Role Phone Johnathon Braga DO Primary Care Provider + Reason for Visit * Reason Comments Physical Annual Encounter Details Date Type Department Care Team (Late st Contact Info) Description 02/19/2023 1:20 PM CDT Office Visit [facility] [address] [place] [address] Johnathon Braga DO [facility] [place] [place] [address] Physical (Annual ) Social History Tobacco Use Types Packs/Day Years Used Date Smoking Tobacco: Never Smokeless Tobacco: Never Tobacco Cessation:Counseling Given: Yes Alcohol Use Standard Drinks/Week Comments Never 0 [...] on file Legal Sex Male 11:26 AM 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 No / Unsure 02/19/2023 1:12 PM CDT documented as of this encounter Last Filed Vital Signs Vital Sign Reading Time Taken Comments Blood Pressure 100/68 02/19/2023 1:19 PM CDT Pulse 70 02/19/2023 1:19 PM CDT Temperature 37.1 ??C (98.7 ??F) 02/19/2023 1:19 PM CD T Respiratory Rate 20 02/19/2023 1:19 PM CDT Oxygen Saturation 98% 02/19/2023 1:19 PM CDT Inhaled Oxygen Concentration - - Weight 98.9 kg (218 lb) 02/19/2023 1:19 PM CDT Height 180.3 cm (5' 11 ) 02/19/2023 1:19 PM CDT Body Mass Index 30.4 02/19/2023 1:19 PM CDT documented in this encounter Progress Notes * Johnathon Braga, DO - 02/19/2023 1:20 PM CDT Images from the original note were not included. GENERAL OFFICE VISIT Encounter Date: 02/19/2023 Chief Complaint: 67-year-old male presents for Physical (Annual ) HPI: Patient presents for follow-up on essential hypertension. Patient has had hypertension for multipleyears. Current medications include lisinopril and chlorthalidone. Patient does take his/her blood pressure at home. Ranges are WNL. No side effects noted from medications. Concurrent conditions include Hyperlipidemia. Pt is now following with neurology Dr. Hill. Pt is on Aricept, lamotrigine, gabapentin, and modafinil. They feel that his medications are not working as well. They are asking for adjustments in this. He will have kidney stone surgery with urology tomorrow. Pt is on tamsulosin and testosterone from them. Pt has increased pain and is needing this sooner. Patient presents for follow-up on HLD. Patient has had HLD for multiple years. Current medications include atorvastatin. Current side effects include none. Patient does need labs drawn today. Pt has gout. He is on allopurinol. He is needing his uric acid checked again. Pt is needing his chronic labs at this time. Review of Systems Constitutional: Positive for malaise/fatigue. Negative for fever. Respiratory: Negative for shortness of breath. Cardiovascular: Negative for chest pain. Genitourinary: Negative for dysuria. Skin: Negative for rash. Neurological: See HPI Psychiatric/Behavioral: See HPI Patient Active Problem List Diagnosis Benign essential tremor Calculus of kidney Convergence insufficiency Dizziness Fall Fatigue Hypertension Idiopathic gout Postconcussion syndrome Post-traumatic headache, not intractable Syncope Visual disturbance Irritability and anger Hypogonadism in male Lesion of ulnar nerve Past Medical History: Diagnosis Date Dementia (CMS/HCC) [...] on file Immunization History Administered Date(s) Administered DEBBIE (KEVIN & KEVIN) COVID-19 AD26 VACCINE [...] Take 1 tablet by mouth once daily atorvastatin (LIPITOR) 10 MG tablet TAKE 1 [...] Take by mouth 2 (two) times daily. hydrOXYzine 50 MG tablet lamoTRIgine 100 MG tablet modafinil 200 MG tablet Multiple Vitamins-Minerals (CENTRUM [...] Carbamazepine Rash and Swelling Objective: Filed Vitals: 02/19/23 1319 BP: 100/68 Pulse: 70 Resp: 20 Temp: 98.7 ??F (37.1 ??C) TempSrc: Temporal SpO2: 98% Weight: 98.9 kg (218 lb) Height: 5' 11 (1.803 m) Physical Exam Vitals and nursing note reviewed. HENT: Head: Normocephalic and atraumatic. Right Ear: Tympanic membrane, ear canal and external ear normal. Left Ear: Tympanic membrane, ear canal and external ear normal. Mouth/Throat: Pharynx: No oropharyngeal exudate. Eyes: General: No scleral icterus. Conjunctiva/sclera: Conjunctivae normal. Cardiovascular: Rate and Rhythm: Normal rate and regular rhythm. Heart sounds: Normal heart sounds. No murmur heard. No friction rub. No gallop. Pulmonary: Effort: Pulmonary effort is normal. No respiratory distress. Breath sounds: Normal breath sounds. No wheezing or rales. Abdominal: Palpations: Abdomen is soft. Tenderness: There is no abdominal tenderness. Musculoskeletal: Cervical back: Neck supple. Lymphadenopathy: Cervical: No cervical adenopathy. Skin: General: Skin is warm and dry. Findings: No rash. Neurological: Mental Status: He is alert. Comments: At baseline, full exam deferred Psychiatric: Mood and Affect: Mood and affect normal. Assessment & Plan: Wily was seen today for physical. Diagnoses and all orders for this visit: Peripheral polyneuropathy - gabapentin (NEURONTIN) 600 MG tablet; Take 1 tablet (600 mg total) by mouth 3 (three) times daily. - CBC W/DIFF AUTOMATED; Future - COMPREHENSIVE METABOLIC PANEL; Future - TSH W/REFLEX; Future - LIPID PANEL; Future - VITAMIN D, 25 OH; Future - HEMOGLOBIN, GLYCOSYLATED; Future - URIC ACID BLOOD; Future - CBC W/DIFF AUTOMATED - COMPREHENSIVE METABOLIC PANEL - TSH W/REFLEX - LIPID PANEL - VITAMIN D, 25 OH - HEMOGLOBIN, GLYCOSYLATED - URIC ACID BLOOD Dementia with mood disturbance, unspecified dementia severity, unspecified dementia type ([facility]) - memantine (NAMENDA) 5 MG tablet; Take 1 tablet daily for one week; increase by 1 tablet every week until taking 4 tablets daily Dizziness - meclizine (ANTIVERT) 25 MG tablet; Take 1 tablet (25 mg total) by mouth daily as needed. Primary hypertension - CBC W/DIFF AUTOMATED; Future - COMPREHENSIVE METABOLIC PANEL; Future - TSH W/REFLEX; Future - LIPID PANEL; Future - VITAMIN D, 25 OH; Future - HEMOGLOBIN, GLYCOSYLATED; Future - URIC ACID BLOOD; Future - CBC W/DIFF AUTOMATED - COMPREHENSIVE METABOLIC PANEL - TSH W/REFLEX - LIPID PANEL - VITAMIN D, 25 OH - HEMOGLOBIN, GLYCOSYLATED - URIC ACID BLOOD Calculus of kidney Postconcussion syndrome Hyperlipidemia, unspecified hyperlipidemia type - CBC W/DIFF AUTOMATED; Future - COMPREHENSIVE METABOLIC PANEL; Future - TSH W/REFLEX; Future - LIPID PANEL; Future - VITAMIN D, 25 OH; Future - HEMOGLOBIN, GLYCOSYLATED; Future - URIC ACID BLOOD; Future - CBC W/DIFF AUTOMATED - COMPREHENSIVE METABOLIC PANEL - TSH W/REFLEX - LIPID PANEL - VITAMIN D, 25 OH - HEMOGLOBIN, GLYCOSYLATED - URIC ACID BLOOD Vitamin D deficiency - CBC W/DIFF AUTOMATED; Future - COMPREHENSIVE METABOLIC PANEL; Future - TSH W/REFLEX; Future - LIPID PANEL; Future - VITAMIN D, 25 OH; Future - HEMOGLOBIN, GLYCOSYLATED; Future - URIC ACID BLOOD; Future - CBC W/DIFF AUTOMATED - COMPREHENSIVE METABOLIC PANEL - TSH W/REFLEX - LIPID PANEL - VITAMIN D, 25 OH - HEMOGLOBIN, GLYCOSYLATED - URIC ACID BLOOD Idiopathic gout, unspecified chronicity, unspecified site - CBC W/DIFF AUTOMATED; Future - COMPREHENSIVE METABOLIC PANEL; Future - TSH W/REFLEX; Future - LIPID PANEL; Future - VITAMIN D, 25 OH; Future - HEMOGLOBIN, GLYCOSYLATED; Future - URIC ACID BLOOD; Future - CBC W/DIFF AUTOMATED - COMPREHENSIVE METABOLIC PANEL - TSH W/REFLEX - LIPID PANEL - VITAMIN D, 25 OH - HEMOGLOBIN, GLYCOSYLATED - URIC ACID BLOOD Elevated blood sugar - HEMOGLOBIN, GLYCOSYLATED; Future - HEMOGLOBIN, GLYCOSYLATED Discussion/Summary: We will increase gabapentin today. We will start memantine today; discussed side effect profile. Order labs per above. Continue follow-up with all specialist. Patient refuses all immunizations today.Will have patient follow-up in 6 to 12 months or sooner if needed. Patient verbalized understanding. I personally spent a total of 35 minutes on the day of the encounter. This includes wasp-ht-wrsq and wxa-vpsj-ne-face time I provided on the day of the encounter & excludes time spent performing separately reportable services. Johnathon Braga DO documented in this encounter Plan of Treatment Upcoming Encounters Date Type Department Care Team (Late st Contact Info) Description 09/10/2024 11:30 AM IRRIGATOR GRAVITY FLOW [facility] [address] [place] [address] [place] [address] [facility] [address] [place] [address] 10/25/2024 9:20 AM IRRIGATOR GRAVITY FLOW Office Visit [facility] Family & Internal Medicine - [address] [phone] [place] [address] [place] [address] 11/21/2024 9:40 AM CDT Office Visit [facility] - [address], [address] [place] [phone] Shelli Gonzalez MD [address] [place] [address] Scheduled Orders Name Type Priority Associated Diagnoses Orde r Schedule VITAMIN D, 25 OH Lab Routine Peripheral polyneuropathy Primary hypertension Hyperlipidemia, unspecified hyperlipidemia type Vitamin D deficiency Idiopathic gout, unspecified chronicity, unspecified site Expected: 02/19/2023, Expires: 02/20/2024 documented as of this encounter Procedures Procedure Name Priority Date/Time Associated Diagnosis Comments TSH W/REFLEX Routine 02/23/2023 10:00 AM CDT Peripheral polyneuropathy Primary hypertension Hyperlipidemia, unspecified hyperlipidemia type Vitamin D deficiency Idiopathic gout, unspecified chronicity, unspecified site HEMOGLOBIN, GLYCOSYLATED Routine 02/23/2023 10:00 AM CDT Peripheral polyneuropathy Primary hypertension Hyperlipidemia, unspecified hyperlipidemia type Vitamin D deficiency Idiopathic gout, unspecified chronicity, unspecified site Elevated blood sugar COMPREHENSIVE METABOLIC PANEL Routine 02/23/2023 10:00 AM CDT Peripheral polyneuropathy Primary hypertension Hyperlipidemia, unspecified hyperlipidemia type Vitamin D deficiency Idiopathic gout, unspecified chronicity, unspecified site LIPID PANEL Routine 02/23/2023 10:00 AM CDT Peripheral polyneuropathy Primary hypertension Hyperlipidemia, unspecified hyperlipidemia type Vitamin D deficiency Idiopathic gout, unspecified chronicity, unspecified site CBC W/DIFF AUTOMATED Routine 02/23/2023 10:00 AM CDT Peripheral polyneuropathy Primary hypertension Hyperlipidemia, unspecified hyperlipidemia type Vitamin D deficiency Idiopathic gout, unspecified chronicity, unspecified site VITAMIN D, 25 OH Routine 02/23/2023 10:0 0 AM CDT URIC ACID BLOOD Routine 02/23/2023 10:00 AM CDT Peripheral polyneuropathy Primary hypertension Hyperlipidemia, unspecified hyperlipidemia type Vitamin D deficiency Idiopathic gout, unspecified chronicity, unspecified site documented in this encounter Results * VITAMIN D, 25 OH (02/23/2023 10:00 AM CDT) [facility] VITAMIN D 25 HYDROXY TOTAL S/P/B 35.7 >29.9 ng/mL [facility] Comment: Vitamin D, 25-Hydroxy reports concentrations of two common forms, 25-OHD2 and 25-OHD3. 25-OHD3 indicates both endogenous production and supplementation. 25-OHD2 is an indicator of exogenous sources, such as diet or supplementation. Therapy is based on measurement of Total 25-OHD, with levels <20 ng/mL indicative of Vitamin D deficiency, while levels between 20 ng/mL and 30 ng/mL suggest insufficiency. Optimal levels are >=30 ng/mL. Vitamin-D is fat-soluble and therefore inadvertent or intentional ingestion of excessively high amounts could be toxic. Studies in children and adults suggest blood levels would need to exceed 150 ng/mL before there is any concern. Dipak MF, Leonarda MEHTA, Allan RYDER, et al. Evaluation, treatment, and prevention of vitamin D deficiency: an Endocrine Society clinical practice guideline. J Clin Endocrinol Metab. 2011;96(7):1911-30.This test is performed by a Liquid Chromatography-Tandem Mass Spectrometry (LC-MS/MS) method. This test was developed and its performance characteristics determined by the [employer]. It has not been cleared or approved by the U.S. FDA. The [employer], [employer]. is regulated under Clinical Laboratory Improvement Amendments (CLIA) as qualified to perform high-complexity testing. This test is used for clinical purposes. It should not be regarded as investigational or for research. Vitamin D, 25-Hydroxy reports concentrations of two common forms, 25-OHD2 and 25-OHD3. 25-OHD3 indicates both endogenous production and supplementation. 25-OHD2 is an indicator of exogenous sources, such as diet or supplementation. Therapy is based on measurement of Total 25-OHD, with levels <20 ng/mL indicative of Vitamin D deficiency, while levels between 20 ng/mL and 30 ng/mL suggest insufficiency. Optimal levels are > or = 30 ng/mL. Vitamin D is fat-soluble and therefore inadvertent or intentional ingestion of excessively high amounts could be toxic. Studies in children and adults suggest blood levels would need to exceed 150 ng/mL before there is any concern. Dipak MF, Leonarda MEHTA, Allan RYDER, et al., Evaluation, treatment, and prevention of vitamin D deficiency: an Endocrine Society clinical practice guideline. J Clin. Endocrinol. Metab. 2011;96(7):1911-30. VITAMIN D 25 HYDROXY D3 S/P/B 34.5 ng/mL [place] [employer] [facility] Comment: This test was developed and its analytical performance characteristics have been determined by [employer]. It has not been cleared or approved by the FDA. This assay has been validated pursuant to the CLIA regulations and is used for clinical purposes. VITAMIN D 25 HYDROXY D2 S/P/B 1.2 ng/mL [employer] [facility] Comment: This test was developed and its analytical performance characteristics have been determined by [employer]. It has not been cleared or approved by the FDA. This assay has been validated pursuant to the CLIA regulations and is used for clinical purposes. 02/23/2023 10:0 0 AM CDT 02/23/2023 10:04 AM CDT Narrative [facility] - 02/28/2023 9:12 PM CDT FASTING:YES FASTING: YES Resulting Agency Comment Performing Organization Information: ?Site ID: [id number] ?Name: [facility]. ?Address: [facility] [address] [facility], [address] [place] [phone] ?Director: Eric Albert MD Johnathon Braga DO LABORATORY Final Re sult Performing Organization Address [facility] Co de Phone Number [facility] [address] [facility], [address] [place] [address], * URIC ACID BLOOD (02/23/2023 10:00 AM CDT) Pathologist [facility] URIC ACID 4.8 4.0 - 8.0 mg/dL [email or web address] [facility] Comment: Therapeutic target for gout patients: <6.0 mg/dL ?? 02/23/2023 10:0 0 AM CDT 02/23/2023 10:04 AM CDT Narrative [email or web address] - [facility] - 02/28/2023 9:12 PM CDT FASTING:YES FASTING: YES Resulting Agency Comment Performing Organization Information: ?Site ID: [place] ?Name: [facility] ?Address: [address] [place] [phone] ?Director: Refugio Pennington MD Johnathon Braga DO LABORATORY Final Re sult Performing Organization Address [facility] de Phone Number [email or web address] - [facility] [facility] [email or web address] [facility] [id number] [place] [id number] [place] [address] * (ABNORMAL) HEMOGLOBIN, GLYCOSYLATED (02/23/2023 10:00 AM CDT) Pathologist [facility] HGB A1C 6.3(H) <5.7 % of total Hgb [email or web address] [place] Comment: For someone without known diabetes, a [...] A1c for diagnosis of diabetes for children. 02/23/2023 10:0 0 AM CDT 02/23/2023 10:04 AM CDT Narrative [facility] - 02/28/2023 9:12 PM CDT FASTING:YES FASTING: YES Resulting Agency Comment Performing Organization Information: ?Site ID: [id number] ?Name: [facility] ?Address: [facility] [place] [address] ?Director: Refugio Pennington Johnathon Braga DO LABORATORY Final Re sult [facility] [email or web address] [phone], * (ABNORMAL) LIPID PANEL (02/23/2023 10:00 AM CDT) CHOLESTEROL 154 <200 mg/dL [facility] HDL 42 > OR = 40 mg/dL [facility] TRIGLYCERIDES 207(H) <150 mg/dL [facility] Comment: If a non-fasting specimen was collected, consider repeat triglyceride testing on a fasting specimen if clinically indicated. Marian et al. J. of Clin. Lipidol. 2015;9:129-169. LDL (CALCULATED) 82 mg/dL (calc) [facility] Comment: Reference range: <100 Desirable range <100 mg/dL for primary prevention; ?? <70 mg/dL for patients with CHD or diabetic patients with > or = 2 CHD risk factors. LDL-C is now calculated using the Yifan calculation, which is a validated novel method providing better accuracy than the Friedewald equation in the estimation of LDL-C. Jimbo POWELL et al. YAMILET. 2013;310(19): 1572-2318 (http://education.Charlie App.[place]/faq/OWH623) CHOL/HDL RATIO 3.7 <5.0 (calc) [facility] [employer] [facility] NON HDL CHOLESTEROL 112 <130 mg/dL (calc) [facility] Comment: For patients with diabetes plus 1 major ASCVD risk factor, treating to a non-HDL-C goal of <100 mg/dL (LDL-C of <70 mg/dL) is considered a therapeutic option. 02/23/2023 10:0 0 AM CDT 02/23/2023 10:04 AM CDT Narrative [email or web address] - 02/28/2023 9:12 PM CDT FASTING:YES FASTING: YES Resulting Agency Comment Performing Organization Information: ?Site ID: [place] ?Name: [employer] ?Address: [address] [place] [phone] ?Director: Refugio Pennington MD Johnathon Braga DO LABORATORY Final Re sult Performing Organization Address [facility] Co de Phone Number [email or web address] - [place] [email or web address] [facility] [phone] [place] [address] [place] [address], * TSH W/REFLEX (02/23/2023 10:00 AM CDT) TSH 1.64 0.40 - 4.50 mIU/L [facility] [employer] [facility] 02/23/2023 10:0 0 AM CDT 02/23/2023 10:04 AM CDT Narrative [email or web address] - 02/28/2023 9:12 PM CDT FASTING:YES FASTING: YES Resulting Agency Comment Performing Organization Information: ?Site ID: MICHAEL ?Name: [employer] ?Address: [address] [place] [phone] ?Director: Refugio Pennington MD Johnathon Braga DO LABORATORY Final Re sult Performing Organization Address [facility]/ZIP Co de Phone Number [employer] [place] [employer] [facility] [phone] [place] [address] [place] [address], * (ABNORMAL) COMPREHENSIVE METABOLIC PANEL (02/23/2023 10:00 AM CDT) GLUCOSE 142(H) 65 - 99 mg/dL [facility] Comment: ? Fasting reference interval For someone without known diabetes, a glucose value >125 mg/dL indicates that they may have diabetes and this should be confirmed with a follow-up test. BUN 19 7 - 25 mg/dL [facility] CREATININE S/P/B 1.05 0.70 - 1.35 mg/dL [facility] GFR ESTIMATE 79 > OR = 60 mL/min/1 .73m2 [facility] Comment: The eGFR is based on the CKD-EPI 2020 equation. To calculate the new eGFR from a previous Creatinine or Cystatin C result, go to https://www.kidney.org/professionals/ kdoqi/gfr%5Fcalculator BUN CREATININE RATIO NOT APPLICABLE 6 - 22 (calc) [facility] SODIUM S/P/B 139 135 - 146 mmol/L [facility] POTASSIUM S/P/B 3.6 3.5 - 5.3 mmol/L [facility] CHLORIDE S/P/B 100 98 - 110 mmol/L [facility] 31 20 - 32 mmol/L [facility] CALCIUM S/P/B 9.3 8.6 - 10.3 mg/dL [facility] TOTAL PROTEIN S/P/B 6.8 6.1 - 8.1 g/dL [facility] ALBUMIN S/P/B 4.0 3.6 - 5.1 g/dL [facility] GLOBULIN 2.8 1.9 - 3.7 g/dL (calc) [facility] ALBUMIN/GLOBULI N RATIO 1.4 1.0 - 2.5 (calc) [facility] BILIRUBIN TOTAL S/P/B 0.8 0.2 - 1.2 mg/dL [facility] ALKALINE PHOSPHATASE S/P/B 124 35 - 144 U/L [facility] AST 22 10 - 35 U/L [facility] ALT 22 9 - 46 U/L [facility] 02/23/2023 10:0 0 AM CDT 02/23/2023 10:04 AM CDT Narrative [facility] - 02/28/2023 9:12 PM CDT FASTING:YES FASTING: YES Resulting Agency Comment Performing Organization Information: ?Site ID: [place] ?Name: [facility] ?Address: [address] [phone] ?Director: Refugio Pennington MD Johnathon Braga DO LABORATORY Final Re sult [facility] [place] [facility] [place] [id number] [place] [address], * CBC W/DIFF AUTOMATED (02/23/2023 10:00 AM CDT) WBC 7.5 3.8 - 10.8 Thousand/u L [email or web address] RBC 5.26 4.20 - 5.80 Million/uL [email or web address] HGB 16.4 13.2 - 17.1 g/dL [email or web address] HCT 47.8 38.5 - 50.0 % [facility] MCV 90.9 80.0 - 100.0 fL [email or web address] [facility] MCH 31.2 27.0 - 33.0 pg [email or web address] [facility] MCHC 34.3 32.0 - 36.0 g/dL [facility] [employer] [facility] RDW 12.8 11.0 - 15.0 % [facility] PLT 150 140 - 400 Thousand/u L [email or web address] MPV 12.5 7.5 - 12.5 fL [email or web address] ABS. NEUTROPHILS 4,875 1,500 - 7,800 cells/uL [facility] [place] ABS. LYMPHOCYTES 1,725 850 - 3,900 cells/uL [facility] [place] ABS. MONOCYTES 570 200 - 950 cells/uL [facility] [place] ABS. EOSINOPHILS 248 15 - 500 cells/uL [facility] [place] ABS. BASOPHILS 83 0 - 200 cells/uL [facility] [place] SEG NEUTROPHILS 65 % [facility] LYMPHOCYTES 23.0 % [facility] [place] MONOCYTES 7.6 % [facility] EOSINOPHILS 3.3 % [facility] [place] BASOPHILS 1.1 % [facility] 02/23/2023 10:0 0 AM CDT 02/23/2023 10:04 AM CDT Narrative [facility] - 02/28/2023 9:12 PM CDT FASTING:YES FASTING: YES Resulting Agency Comment Performing Organization Information: ?Site ID: [place] ?Name: [facility] ?Address: [address] [phone] ?Director: Refugio Pennington MD us Johnathon Braga DO LABORATORY Final Re sult [facility] [address] [place] [address], documented in this encounter Visit Diagnoses Diagnosis Peripheral polyneuropathy- Primary Unspecified hereditary and idiopathic peripheral neuropathy Dementia with mood disturbance, unspecified dementia severity, unspecified dementia type (CMS/HCC HHS/HCC) Dizziness Dizziness and giddiness Primary hypertension Unspecified essential hypertension Calculus of kidney Postconcussion syndrome Hyperlipidemia, unspecified hyperlipidemia type Vitamin D deficiency Unspecified vitamin D deficiency Idiopathic gout, unspecified chronicity, unspecified site Elevated blood sugar Other abnormal glucose documented in this encounter Additional Health Concerns Assessment Noted Time PHQ-9 Depression Total Score: 4 02/20/20 23 1:21 PM CDT documented as of this encounter Care Teams Senior Technical Analyst Relationship Specialty Start Date End Date Johnathon Braga DO [address] [place] [address] PCP - General FAMILY PRACTICE 10/31/20 documented as of this encounter
--- OUTSIDE RECORDS SUMMARY | 2024-09-03 07:52 | XMS_ITS | Encounter Summary ---
Author Organization [facility] Address [address] [place] [address]. [place], [place] [id number] [place] [address] Care Team Providers Care Tractor Trailer Mechanic Name Role Phone Johnathon Braga DO Primary Care Provider + Reason for Visit * Reason Onset Date Comments Question 03/04/2023 Diarrhea 03/04/2023 Encounter Details Date Type Department Care Team (Late st Contact Info) Description 03/04/2023 Telephone [facility] Family & Internal Medicine [facility] [address] [place] [address] Johnathon Braga DO [address] [place] [address] Question; Diarrhea Social History Tobacco Use Types Packs/Day Years [...] on file Legal Sex Male 11:26 AM MANAGER ALLIANCE Gender Identity Not on file Sexual Orientation Not on file COVID-19 Exposure Response Date Recorded In the last 10 days, have yo u been in contact with someone who was confirmed or suspected to have Coronavirus/COVID-19? No / Unsure 02/19/2023 1:12 PM CDT documented as of this encounter Progress Notes * Tonia Greenberg MA - 03/19/2023 2:51 PM CDT Spoke with thomas and advised her of recommendation. Thomas states the patient ate a whole jar of garlic and they read it comes out the sweat glands. * Johnathon Braga DO - 03/16/2023 1:18 PM CDT No, I don't believe this is a medication issue. * Tonia Greenberg MA - 03/16/2023 12:32 PM CDTAddended by: TONIA GREENBERG on: 03/16/2023 12:32 PM Modules accepted: Orders * Tonia Greenberg MA - 03/16/2023 12:21 PM CDT Spoke with Thomas and advised her of the following. She states she will call neurology and discuss medications with them. She went on to ask if any of the medications Wily is on can make him sweat profusely during the summer and cause him to smell? She states she has noticed this being an ongoing problem. Please advise. * Johnathon Braga DO - 03/16/2023 11:55 AM CDT There are not that I can prescribe. Pt would need to f/u with neurology. * Tonia Greenberg MA - 03/16/2023 11:25 AM CDT Spoke with thmoas and informed her to stop the namenda. She would like to know if there is an alternative medication the patient can take for his dementia? I informed her I will talk with the provider.She v/u. * Johnathon Braga DO - 03/16/2023 11:12 AM CDT Stop the Namenda then as it may be related. * Tonia Greenberg MA - 03/16/2023 10:17 AM CDT Please advise. * Brenda Hollins - 03/16/2023 10:04 AM CDT Wily's called in to let you know it's been 2 weeks and he is still having diarrhea. * Belkys Ronquillo MA - 03/05/2023 8:35 AM CDT Contacted Thomas and informed if the diarrhea does not stop within 2 weeks to call the office becausehe will need to stop the Namenda. Informed not to start the Metformin until the diarrhea stops. Thomas voiced understanding. tn * Johnathon Braga DO - 03/04/2023 4:23 PM CDT If he's been taking it for 2 weeks and is still happening, not likely to improve and needs to stop the medicine. Will send out metformin, but diarrhea needs to stop prior to starting metformin. Pended. * Belkys Ronquillo MA - 03/04/2023 11:15 AM CDT Informed of results and recommendations. She states ok to go on the metformin for preventions of diabetes. Lifestyle changes implemented. She is wanting you to know that Wily has had diarrhea every night since starting the Namemda. Wanting to know if this will go away after his body is use to it? * Belkys Ronquillo MA - 03/04/2023 11:15 AM CDT ----- Message from Johnatohn Braga DO sent at 03/02/2023 10:54 PM CDT ----- Most labs are acceptable. Pt's A1c is close to diabetic range. If they'd like to consider starting metformin to try and prevent this, this is reasonable. We could do this and have him f/u in 3 months. If not, we will recheck at next OV and needs to implement lifestyle changes. Other labs are acceptable and can be repeated in 1 year. documented in this encounter Plan of Treatment Upcoming Encounters Date Type Department Care Team (Late st Contact Info) Description 09/10/2024 11:30 AM MANAGER ALLIANCE Appointment [facility] [address] [place], [place] [phone] Zay Juárez [place] [id number] [address] 10/25/2024 9:20 AM MANAGER ALLIANCE Office Visit [facility] Family & Internal Medicine - [address] [phone] Johnathon Braga DO [address] [place] [address] 11/21/2024 9:40 AM CDT Office Visit [facility] Multispecialty Care - [facility] [address] [facility], [address] [place] [address] Shelli Gonzalez MD [address] [place] [address] documented as of this encounter Visit Diagnoses Diagnosis Prediabetes- Primary Other abnormal glucose documented in this encounter Additional Health Concerns Assessment Noted Time PHQ-9 Depression Total Score: 4 02/20/20 23 1:21 PM CDT documented as of this encounter Care Teams Tractor Trailer Mechanic Relationship Specialty Start Date End Date Johnathon Braga DO [address] [place] [address] PCP - General FAMILY PRACTICE 10/31/20 documented as of this encounter
--- OUTSIDE RECORDS SUMMARY | 2024-09-03 07:52 | XMS_ITS | Encounter Summary ---
Author Organization [facility] Address [address] [place] [address]. [place], [place] [id number] [place] [address] Care Team Providers Care Wall Covering Installer Name Role Phone Johnathon Braga DO Primary Care Provider + Reason for Visit * Reason Onset Date Comments Quality Gap Closure 08/27/2023 Encounter Details Date Type Department Care Team (Late st Contact Info) Description 08/27/2023 Patient Outreach [facility] Family & Internal Medicine [facility] [address] [place] [address] Johnathon Braga DO [address] [place] [address] Quality Gap Closure Social History Tobacco Use Types [...] on file Legal Sex Male 11:26 AM MACHINE WELDER Gender Identity Not on file Sexual Orientation Not on file documented as of this encounter Progress Notes * Ary Templeton CMA - 08/27/2023 2:19 PM CST I am a patient quality advocate calling this patient on behalf of the virtual stand work team to assess the below quality gaps. If you need to contact me directly- my number is [phone] Preventive Screenings: Breast Cancer Screening: N/A Notes: Colorectal Cancer Screening: Up to Date Notes:07/09/2028 Diabetic Eye Exam: N/A Notes: Falls Risk Screening: Up to Date Notes: Tobacco Cessation: N/A Notes: Labs: BMP/CMP: N/A Notes: Hemoglobin A1c: N/A Notes: Lipid: N/A Notes: Urine Albumin-Creatinine Ratio: N/A Notes: Immunizations: Influenza: Up to Date Notes: Pneumococcal: Needs Follow Up Notes: Shingles: Needs Follow Up Notes: INE WELDER documented in this encounter Plan of Treatment Upcoming Encounters Date Type Department Care Team (Late st Contact Info) Description 09/10/2024 11:30 AM MACHINE WELDER Appointment [facility] [address] [place], [place] [phone] Zay Juárez [place] [address] [facility] [place] [address] [place] [address] 10/25/2024 9:20 AM MACHINE WELDER Office Visit [facility] Family & Internal Medicine - [place] [address] [place] [address] Johnathon Braga, [address] [place] [address] 11/21/2024 9:40 AM CDT Office Visit [facility] Multispecialty Care - [address], [address] [place] [phone] Shelli Gonzalez MD [address] [place] [address] documented as of this encounter Visit Diagnoses Not on filedocumented in this encounter Additional Health Concerns Assessment Noted Time PHQ-9 Depression Total Score: 4 07/20/20 23 11:48 AM MACHINE WELDER documented as of this encounter Care Teams Wall Covering Installer Relationship Specialty Start Date End Date Johnathon Braga DO [address] [place] [address] PCP - General FAMILY PRACTICE 10/31/20 documented as of this encounter
--- OUTSIDE RECORDS SUMMARY | 2024-09-03 07:52 | XMS_ITS | Encounter Summary ---
Author Organization [facility] Address [address] [place] [address]. [place], [place] [address] [place] [address] Care Team Providers Care Long Chain Dyeing Machine Operator Name Role Phone KrisGale alexisry Timbo SHELTON Primary Care Provider + Reason for Visit * Auth/Cert Specialty Diagnoses / Procedures Referred By Chikaac t Referred To Contact Diagnoses Umbilical hernia without obstruction or gangrene K42.9 umbilical hernia without obstruction or gangrene Procedures RPR AA HRN 3-10 [facility] [place] [address] [address] Phone: tel: fax: Referral ID Status Reason Start Date Expiration Date Visits Re quested Visits Authorized [id number] 1 1 Encounter Details Date Type Department Care Team (Latest Contact Info) Description 04/21/2024 7:16 AM CDT - 04/21/2024 11:50 AM T Hospital Encounter [facility] [address] [place] [address] [place] [address] [address] Discharge Disposition: Home or Self Care [...] on file Legal Sex Male 11:26 AM MOUNTER SMOKING PIPE Gender Identity Not on file Sexual Orientation Not on file documented as of this encounter Last Filed Vital Signs Vital Sign Reading Time Taken Comments Blood Pressure 144/71 04/21/2024 11:30 AM CDT Pulse 52 04/21/2024 10:23 AM CDT Temperature 36.6 ??C (97.8 ??F) 04/21/2024 7:33 AM CD T Respiratory Rate 18 04/21/2024 11:30 AM CDT Oxygen Saturation 94% 04/21/2024 11:30 AM CDT Inhaled Oxygen Concentration - - Weight 104.3 kg (230 lb) 04/13/2024 2:14 PM CDT Height - - Body Mass Index 32.08 02/04/2024 2:58 PM CDT documented in this encounter Discharge Instructions * Attachments The following attachments cannot be sent through Care Everywhere. * Abdominal Hernia Discharge Instructions ([place] Citizen) * General Anesthesia Discharge Instructions ([place] Citizen) * How to Put On and Take Off Compression Stockings ([place] Citizen) * How to Use an Incentive Spirometer ([place] Citizen) documented in this encounter Medications at Time [...] complication, without long-term current use of insulin ([facility] HHS/HCC) 1 strip by Other route as needed. Use once daily in the AM while fasting. 100 strip 1 11/16/2023 Glucose Blood ([employer] GLUCOSE METER TEST STRIPS) test stripIndications:Ty pe 2 diabetes mellitus without complication, without long-term current use of insulin ([facility] HHS/HCC) 1 strip by Other route as [...] complication, without long-term current use of insulin ([facility] HHS/HCC) TAKE 1 TABLET BY MOUTH ONCE DAILY WITH BREAKFAST DO NOT BREAK OR CRUSH TABLET 30 tablet 1 04/04/2024 4 Glucose Blood (ACCU-CHEK GUIDE) test stripIndications:Ty pe 2 diabetes mellitus without complication, without long-term current use of insulin ([facility] HHS/[facility]) 1 strip by Other route every morning [...] complication, without long-term current use of insulin ([facility] HHS/[facility]) 1 Lancet by Does not apply route daily as needed. Once daily. Use accu-check brand. 100 each 1 11/26/2023 4 PARoxetine (PAXIL) 20 MG tablet Take 2 tablets (40 mg total) by mouth daily. 07/09/2023 4 propranolol LA (INDERAL LA) 60 MG 24 hr capsuleIndications: Traumatic brain injury with loss of consciousness, sequela ([facility]) Take 1 capsule (60 mg total) by mouth daily. 30 capsule 11 09/03/2023 4 documented as of this encounter Progress Notes * Emerald Ortez RN - 04/21/2024 11:58 AM CDT Pt and verbalized understanding to discharge instructions. Ambulated to restroom without issues. documented in this encounter H&P Notes * Ashley Truong MD - 04/21/2024 8:11 AM CDT Attending Provider: Ashley Truong MD PCP: DO Wily Nugent Shruti is an 68-year-old male. Reason for Admission: Umbilical hernia without obstruction or gangrene HPI: 68 y/o WM with several year hx of pain and bulging in the umbilical area , increasing in size and causing discomfort. Past Medical History: Diagnosis Date Closed fibular fracture 04/20/2024 Dementia ([facility]) Diabetes mellitus ([facility]) Excessive anger Gout Hypertension Kidney stone Loss [...] by mouth daily. Blood Glucose Monitoring Suppl (D-Bliips GLUCOMETER) w/Device Kit 1 Device by Does [...] and numbness. Understands and wishes to proceed. ASHLEY TRUONG MD 04/21/2024 documented in this encounter OR Notes * Brief Op Note - Ashley Truong MD - 04/21/2024 9:57 AM CDT [facility] Brief Op HSHSUmbilical Hernia Repair Procedure Note Wily Bahena 04/21/2024 0830 Procedure(s) (LRB): Umbilical Hernia Repair (N/A) Open repair umbilical hernia with mesh using 6.5 cm circular ventralex hernia patch Defect measured 3 cm Surgeon(s): Ashley Truong MD Supervisor Enrobing: Logistician: Charley Burnham, WAREHOUSE ORDER FILLER Anesthesia: General Infiltration 20 cc 0.5 % Marcaine Pre-Op Diagnosis: K42.9 umbilical hernia without obstruction or gangrene Post-Op Diagnosis: Same Findings: Same Hernia defect 3 cm Estimated Blood Loss: Minimal Complications : None Drains: Patient transported to in satisfactory condition. Specimens: None ASHLEY TRUONG MD Date: 04/21/2024 Time: 9:57 AM * Op Note - Ashley Truong MD - 04/21/2024 12:00 AM CDT Patient Name: WILY BAHENA Date of : 1955 Account: [id number] Facility: [facility] Location: [facility] Date of Service: 04/21/2024 Operative Note PREOPERATIVE DIAGNOSIS: Umbilical hernia. POSTOPERATIVE DIAGNOSIS: Umbilical hernia without obstruction or gangrene. Hernia defect measured 3cm. PROCEDURE DONE: Open repair of umbilical hernia with mesh using a 6.5 cm circular Ventralex hernia patch. SURGEON: Ashley Truong Jr., MD. BRASS POURER: Charley Burnham. ANESTHESIA: General with infiltration of [...] with alternatives, risks and complications as outlined in our educational pamphlet, which was reviewed and given [...] to recovery room in satisfactory condition. Signature/Date: ASHLEY TRUONG MD #[id number] /TAP documented in this encounter Plan of Treatment Upcoming Encounters Date Type Department Care Team (Late st Contact Info) Description 09/10/2024 11:30 AM MOUNTER SMOKING PIPE Appointment [facility] [address] [place] [address] [place] [address] [facility] [address] [place] [address] 10/25/2024 9:20 AM MOUNTER SMOKING PIPE Office Visit [facility] Family & Internal Medicine - [address] [phone] Johnathon Braga DO [address] [place] [address] 11/21/2024 9:40 AM CDT Office Visit [facility] Multispecialty Care - [address], [address] [place] [phone] Shelli Gonzalez MD [address] [place] [address] documented as of this encounter Procedures Procedure [...] - 110 mg/dL 04/21/2024 8:48 AM CDT [facility] 04/21/2024 7:44 AM CDT us Ashley Truong MD POCT ORDERABLES - DEVICE Final R esult Performing Organization Address City/State/[facility] Co de Phone Number [facility] [address] [place] [address], [place] [phone] documented in this encounter Visit Diagnoses Diagnosis [...] MAR Action Action Date Dose Rate Site famotidine (PF) (PEPCID) injection 20 mg 20 mg, Intravenous, Once, 1 dose, On Darleen 04/21/24 at 0745, On admission IV Push over 2 minutes, Pre-Op Given 04/21/2024 7:57 AM CDT 20 mg HYDROcodone-acetaminophe n (NORCO) 5-325 MG tablet 1 tablet 1 [...] Darleen 04/21/24 at 0745, On admission, Pre-Op 0757 (Given - Provid er: Emerald Ortez RN) Continuous Medication Order 04/19/2024 04/20/2024 04/21/2024 sodium chloride 0.9% infusion at 10 mL/hr, Intravenous, Continuous, Starting on Darleen 04/21/24 at 0745, Until Darleen 04/21/24 at 1359, Infuse at TKO rate. Use mini-drip tubing for ESRD patients., Pre-Op 0756 (New Bag - Prov ider: Emerald Ortez, NILAY)0830 (Continued by Anesthesia - Provider: Jamilah Huerta CRNA)1108 (Infusion Stop Time - Provider: Emerald Ortez RN) PRN Medication Order 04/19/2024 04/20/2024 04/21/2024 BUpivacaine 0.5 % (MARCAINE) 0.5 % injection (CANCELED) As needed, Starting on Darleen 04/21/24 at 0941, Until Darleen 04/21/24 at 0952, Intra-Op 0941 (Given - Provid er: Ashley Truong MD) ceFAZolin (ANCEF) 1 g in sodium chloride 0.9 % 1,000 mL irrigation solution (CANCELED) As needed, Starting on Darleen 04/21/24 at 0909, Until Darleen 04/21/24 at 0952, Intra-Op 0909 (Given - Provid er: Ashley Truong MD) documented in this encounter Additional Health Concerns Assessment Noted Time PHQ-9 Depression Total Score: 4 07/20/20 23 11:48 AM MOUNTER SMOKING PIPE documented as of this encounter Care Teams Long Chain Dyeing Machine Operator Relationship Specialty Start Date End Date Johnathon Braga DO [address] [place] [address] PCP - General FAMILY PRACTICE 10/31/20 documented as of this encounter
--- OUTSIDE RECORDS SUMMARY | 2024-09-03 07:52 | XMS_ITS | Encounter Summary ---
Author Organization [facility] Address [address] [place] [address]. [place], [place] [address] [place] [address] Care Team Providers Care Geophysical Laboratory Director Name Role Phone KrisalenJohnathon arias Timbo SHELTON Primary Care Provider + Reason for Visit * Reason Comments Postop Followup Umbilical hernia rep air 04/21/2024 * Surgical (Routine) - Closed Specialty Diagnoses / Procedures Referred By Contac t Referred To Contact GENERAL SURGERY Diagnoses Umbilical hernia without obstruction or gangrene Procedures Case request operating room: HERNIORRHAPHY UMBILICAL Zay Truong MD [address] [place] [phone] Phone: tel: fax: Referral ID Status Reason Start Date Expiration Date Visits Re quested Visits Authorized [id number] Closed 02/09/2024 02/08/2025 1 1 Encounter Details Date Type Department Care Team (Late st Contact Info) Description 05/05/2024 3:45 PM CDT Office Visit [facility] Medical Group General Surgery [address], [address] [place] [address] [place] [id number] [address] Postop Followup (Umbilical hernia repair 04/21/2024 ) Social History Tobacco Use Types Packs/Day [...] on file Legal Sex Male 11:26 AM ENVIRONMENTAL PROFESSIONAL Gender Identity Not on file Sexual Orientation Not on file documented as of this encounter Last Filed Vital Signs Vital Sign Reading Time Taken Comments Blood Pressure 114/73 05/05/2024 3:56 PM CDT Pulse 67 05/05/2024 3:56 PM CDT Temperature 37 ??C (98.6 ??F) 05/05/2024 3:56 PM CDT Respiratory Rate 18 05/05/2024 3:56 PM CDT Oxygen Saturation 96% 05/05/2024 3:56 PM CDT Inhaled Oxygen Concentration - - Weight - - Height 180.3 cm (5' 11 ) 05/05/2024 3:56 PM CDT Body Mass Index - - documented in this encounter Progress Notes * Zay Truong MD - 05/05/2024 3:45 PM CDT Reason for Visit: Postop Followup (Umbilical hernia repair 04/21/2024 ) History of Present Illness: 2 weeks s/p repair umbilical hernia, doing well , no complaints ROS: Review of Systems [...] at bedtime, Disp: 90 tablet, Rfl: 0 cephALEXin (KEFLEX) 500 MG capsule, Take 1 capsule (500 mg total) by mouth 2 (two) times daily., Disp: 14 capsule, Rfl: 0 chlorthalidone (HYGROTEN) 25 MG tablet, [...] CRUSH TABLET, Disp: 30 tablet, Rfl: 1 Glucose Blood (ACCU-CHEK GUIDE) test [...] 2 (two) times daily., Disp: , Rfl: Lancets Misc, 1 Lancet by Does not apply route daily as needed. Once daily. Use accu-check brand., Disp: 100 each, Rfl: 1 meclizine (ANTIVERT) 25 MG tablet, Take 1 [...] Disp: , Rfl: Blood Glucose Monitoring Suppl ([address] GLUCOMETER) w/Device Kit, 1 Device by Does not apply route once for 1 dose. Accu-check brand, Disp: 1 kit, Rfl: 0 Review of patient's allergies indicates: Allergen Reactions Carbamazepine Rash and Swelling Past Medical History: Diagnosis Date Closed fibular fracture 04/20/2024 Dementia ([facility]) Diabetes mellitus ([facility]) Excessive anger Gout Hypertension Kidney stone Loss [...] Insecurity: No Food Insecurity (07/15/2023) Received from [place] [place] [facility] Food Insecurity Social/Environmental Concerns: No concerns Transportation Needs: No Transportation Needs (07/15/2023) Received from [facility] [place] [facility] Transportation Needs Social/Environmental Concerns: No concerns Intimate Partner Violence: Not At Risk (07/02/2023) Received from [facility] [place] [facility] Intimate Partner Violence Are you in a relationship with someone who hurts you emotionally and/or physically?: No Housing Stability: Low Risk (07/15/2023) Received from [facility] [place] [facility] Housing Stability Social/Environmental Concerns: No concerns Family History Problem Relation Name Age of Onset Cancer Mother Liver Disease Father No Known Problems Sister Prostate Cancer Brother Family Status Relation Name Status Mother Father Sister Alive Brother Alive No partnership data on file Physical Exam Abdominal: General: Abdomen is flat. Palpations: Abdomen is soft. There is no mass. Tenderness: There is no abdominal tenderness. There is no guarding or rebound. Hernia: No hernia is present. Comments: Incision healing well Filed Vitals: 05/05/24 1556 BP: 114/73 Pulse: 67 Resp: 18 Temp: 98.6 ??F (37 ??C) TempSrc: Core SpO2: 96% Height: 1.803 m (5' 11 ) PainSc: 0 (0-10 Scale) Diagnoses/Impression: 1. S/P umbilical hernia repair, follow-up exam Recommendations and Plan: No lifting greater than 10 pounds F/u 2 weeks Reviewed and updated this visit by provider: Hazel TRUONG Referring Provider: No ref. provider found PCP: Johnathon Braga DO documented in this encounter Plan of Treatment Upcoming Encounters Date Type Department Care Team (Late st Contact Info) Description 09/10/2024 11:30 AM ENVIRONMENTAL PROFESSIONAL Appointment [facility] [address] [place], [place] [address] [place] [address] [facility] [address] [place] [phone] 10/25/2024 9:20 AM ENVIRONMENTAL PROFESSIONAL Office Visit [facility] Family & Internal Medicine - [place] [address] [place] [address] Johnathon Braga DO [facility] [place] [address] 11/21/2024 9:40 AM CDT Office Visit [facility] Medical [facility] - [address], [address] [place] [phone] Shelli Gonzalez MD [address] [place] [address] [phone] documented as of this encounter Visit Diagnoses Diagnosis S/P umbilical hernia repair, follow-up exam- Primary Follow-up examination, following other surgery documented in this encounter Additional Health Concerns Assessment Noted Time PHQ-9 Depression Total Score: 4 07/20/20 23 11:48 AM ENVIRONMENTAL PROFESSIONAL documented as of this encounter Care Teams Geophysical Laboratory Director Relationship Specialty Start Date End Date Johnathon Braga DO [address] [place] [address] PCP - General FAMILY PRACTICE 10/31/20 documented as of this encounter
--- OUTSIDE RECORDS SUMMARY | 2024-09-03 07:52 | XMS_ITS | Encounter Summary ---
Author Organization [facility] Address [address] [place] [address]. [place], [place] [address] [place] [address] Care Team Providers Care Wood Carving Lathe Operator Name Role Phone Johnathon Braga Primary Care Provider + Reason for Visit * Reason Comments Image (SCAN) Procedure (SCAN) Encounter Details Date Type Department Care Team (Late st Contact Info) Description 02/20/2023 Scan HEALTH INFO SRVCS Scanned, Doc Med Group Image (SCAN); Procedure (SCAN) Social History Tobacco Use Types Packs/Day [...] on file Legal Sex Male 11:26 AM IVF EMBRYOLOGIST Gender Identity Not on file Sexual Orientation Not on file COVID-19 Exposure Response Date Recorded In the last 10 days, have yo u been in contact with someone who was confirmed or suspected to have Coronavirus/COVID-19? No / Unsure 02/19/2023 1:12 PM CDT documented as of this encounter Plan of Treatment Upcoming Encounters Date Type Department Care Team (Late Contact Info) Description 09/10/2024 11:30 AM IVF EMBRYOLOGIST Appointment [facility] [address] [place] [address] Zay Juárez [place] [address] [facility] [address] [place] [address] 10/25/2024 9:20 AM IVF EMBRYOLOGIST Office Visit [facility] Family & Internal Medicine [facility] [address] [place] [address] Johnathon Braga DO [address] [place] [address] 11/21/2024 9:40 AM CDT Office Visit [facility] Multispecialty Care - [facility] [address] [facility], [address] [place] [phone] Shelli Gonzalez MD [address] [place] [address] documented as of this encounter Procedures Procedure Name Priority Date/Time Associated Diagnosis Comments IMAGE GENERIC 02/20/2023 PROCEDURE GENERIC (SCAN ORDER) 02/20/2023 documented in this encounter Results * PROCEDURE GENERIC (02/20/2023) 02/20/2023 [facility] Scanned SCANNING Final Resu lt * IMAGE GENERIC (02/20/2023) Anatomical Region Laterality Modality Other 02/20/2023 [facility] Scanned SCANNING Final Resu lt documented in this encounter Visit Diagnoses Not on filedocumented in this encounter Additional Health Concerns Assessment Noted Time PHQ-9 Depression Total Score: 4 02/20/20 23 1:21 PM CDT documented as of this encounter Care Teams Wood Carving Lathe Operator Relationship Specialty Start Date End Date Johnathon Braga DO [address] [place] [address] PCP - General FAMILY PRACTICE 10/31/20 documented as of this encounter
--- OUTSIDE RECORDS SUMMARY | 2024-09-03 07:52 | XMS_ITS | Encounter Summary ---
Author Organization [facility] Address [address] [place] [address]. [place], [place] [address] [place] [address] Care Team Providers Care Customer Service Representative Name Role Phone Johnathon Braga DO Primary Care Provider + Reason for Visit * Reason Onset Date Comments Lab Results 02/24/2023 Encounter Details Date Type Department Care Team (Late st Contact Info) Description 02/24/[address] [facility] Family & Internal Medicine [facility] [address] [place] [address] Johnathon Braga DO [address] [place], [place] [phone] Lab Results Social History Tobacco Use Types Packs/Day [...] on file Legal Sex Male 11:26 AM PRODUCTION AIDE Gender Identity Not on file Sexual Orientation Not on file COVID-19 Exposure Response Date Recorded In the last 10 days, have yo u been in contact with someone who was confirmed or suspected to have Coronavirus/COVID-19? No / Unsure 02/19/2023 1:12 PM CDT documented as of this encounter Progress Notes * Tonia L Lisac, MA - 03/04/2023 1:29 PM CDT Spoke with patient's . She states the patient has been started on a beta- janis and alpha lipoic acid and referred them to [facility]. On 02/18/2023- 3.1 On 02/23/2023-3.6 With the lab returning to normal Dr. Braga is ok holding off on starting medications at this time. Spoke with patient's and advised her of the above and scheduled 3 month follow up * Tonia Mireles MA - 03/04/2023 1:17 PM CDT LMOM for return call. * Johnathon Braga DO - 02/27/2023 3:47 PM CDT That's fine; please address original task in question as well. * Molly Martines - 02/25/2023 11:54 AM CDT Pharmacy called requesting for the doctor to write a rx for memantine (NAMENDA) 5 MG tablet -changing the medication to 10mg 2x daily. [facility], [phone]/fax [phone] * Johnathon Braga DO - 02/24/2023 1:25 PM CDT We have a Cc'd result from [facility] that shows that pt was hypokalemic. Has pt discussed this with anyone? If so, what is being done to address this? documented in this encounter Plan of Treatment Upcoming Encounters Date Type Department Care Team (Late st Contact Info) Description 09/10/2024 11:30 AM PRODUCTION AIDE Appointment [facility] [address] [place] [address] Zay Juárez [place] [address] [facility] [address] [place] [address] 10/25/2024 9:20 AM PRODUCTION AIDE Office Visit [facility] Family & Internal Medicine - [address] [phone] Johnathon Braga DO [address] [place] [address] 11/21/2024 9:40 AM CDT Office Visit [facility] Multispecialty Care - [facility] 3 [facility], [address] [place] [phone] Shelli Gonzalez MD [address] [place] [address] documented as of this encounter Visit Diagnoses Not on filedocumented in this encounter Additional Health Concerns Assessment Noted Time PHQ-9 Depression Total Score: 4 02/20/20 23 1:21 PM CDT documented as of this encounter Care Teams Customer Service Representative Relationship Specialty Start Date End Date Johnathon Braga DO [address] [place] [address] PCP - General FAMILY PRACTICE 10/31/20 documented as of this encounter
--- OUTSIDE RECORDS SUMMARY | 2024-09-03 07:52 | XMS_ITS | Encounter Summary ---
Author Organization [facility] Address [address] [place] [address]. [place], [place] [address] [place] [address] Care Team Providers Care Grain And Yeast Plants Supervisor Name Role Phone Johnathon Braga Primary Care Provider + Encounter Details Date Type Department Care Team (Latest Contact Info) Description 03/02/2023 Travel Social History Tobacco Use Types Packs/Day [...] on file Legal Sex Male 11:26 AM KINDERGARTEN INSTRUCTIONAL ASSISTANT Gender Identity Not on file Sexual Orientation [...] st Contact Info) Description 09/10/2024 11:30 AM KINDERGARTEN INSTRUCTIONAL ASSISTANT Appointment [facility] [address] [place] [address] Zay Juárez [place] [address] [facility] [address] [place] [address] 10/25/2024 9:20 AM KINDERGARTEN INSTRUCTIONAL ASSISTANT Office Visit [facility] Family & Internal Medicine - [address] [address] Johnathon Braga DO [address] [place] [address] 11/21/2024 9:40 AM CDT Office Visit [facility] Multispecialty Care - [facility] 3 [facility], [address] [place] [address] Shelli Gonzalez MD [address] [place] [address] documented as of this encounter Visit Diagnoses Not on filedocumented in this encounter Additional Health Concerns Assessment Noted Time PHQ-9 Depression Total Score: 4 02/20/20 23 1:21 PM CDT documented as of this encounter Care Teams Grain And Yeast Plants Supervisor Relationship Specialty Start Date End Date Johnathon Braga DO [address] [place] [address] PCP - General FAMILY PRACTICE 10/31/20 documented as of this encounter
--- OUTSIDE RECORDS SUMMARY | 2024-09-03 07:52 | XMS_ITS | Encounter Summary ---
Author Organization [facility] Address [address] [place] [address]. [place] [address] [place] [address] Care Team Providers Care Field Control Inspector Name Role Phone Johnathon Braga Primary Care Provider + Encounter Details Date Type Department Care Team (Latest Contact Info) Description 07/04/2023 Scan [facility] HEALTH INFO SRVCS Scanned, Doc [...] on file Legal Sex Male 11:26 AM BROADCAST PRODUCER Gender Identity Not on file Sexual Orientation Not on file documented as of this encounter Plan of Treatment Upcoming Encounters Date Type Department Care Team (Late st Contact Info) Description 09/10/2024 11:30 AM BROADCAST PRODUCER Appointment [facility] [address] [place] [address] Zay Juárez [place] [address] [address] 10/25/2024 9:20 AM BROADCAST PRODUCER Office Visit [facility] Group Family & Internal Medicine [address] [place] [address] Johnathon Braga DO [address] [place] [address] 11/21/2024 9:40 AM CDT Office Visit [facility] Multispecialty Care - [facility] 3 [facility], [address] [place] [address] Shelli Gonzalez MD [address] [place] [address] documented as of this encounter Visit Diagnoses Not on filedocumented in this encounter Additional Health Concerns Assessment Noted Time PHQ-9 Depression Total Score: 4 02/20/20 23 1:21 PM CDT documented as of this encounter Care Teams Field Control Inspector Relationship Specialty Start Date End Date Johnathon Braga DO [address] [place] [address] PCP - General FAMILY PRACTICE 10/31/20 documented as of this encounter
--- OUTSIDE RECORDS SUMMARY | 2024-09-03 07:52 | XMS_ITS | Encounter Summary ---
Author Organization [facility] Address [address] [place] [address]. [place], [place] [address] [place] [address] Care Team Providers Care Drill Runner Helper Name Role Phone Johnathon Braga DO Primary Care Provider + Encounter Details Date Type Department Care Team (Late st Contact Info) Description 04/13/2024 Prep for Procedure [facility] [address] [place] [address] Zay Juárez [place] [address] [facility] [address] [place] [address] Social History Tobacco Use Types Packs/Day [...] on file Legal Sex Male 11:26 AM AUTOMOTIVE FINANCE MANAGER Gender Identity Not on file Sexual Orientation Not on file documented as of this encounter Plan of Treatment Upcoming Encounters Date Type Department Care Team (Late st Contact Info) Description 09/10/2024 11:30 AM AUTOMOTIVE FINANCE MANAGER Appointment [facility] [address] [place] [address] Zay Juá[place] [address] [facility] [address] [place] [address] 10/25/2024 9:20 AM AUTOMOTIVE FINANCE MANAGER Office Visit [facility] Family & Internal Medicine [facility] [address] [place] [address] Johnathon Braga DO [address] [place] [address] 11/21/2024 9:40 AM CDT Office Visit [facility] Multispecialty Care - [facility] 3 [facility], [address] [place] [address] Shelli Gonzalez MD 3 [place] [address] Scheduled Orders Name Type Priority Associated Diagnoses Orde r Schedule ECG 12-Lead EKG-NonRad Routine Preop testing 1 Occurrences starting 04/14/2024 until 04/14/2025 documented as of this encounter Results * ECG 12-Lead (04/18/2024 3:16 PM CDT) 04/18/2024 3:16 PM CDT Narrative [facility] ([facility]) RAD - 04/18/2024 5:03 PM CDT ?[facility] ? Test Date: ?2024-04-18 Pat Name: ? WILY CAUBLE ? Department: ?? 85 ? Room: ? Gender: ? Male ? Pre Certification Specialist: ?? : ?[id number] ? Requested By: BASHIR AVILEZ Order Number: [id number] ? Reading MD: ?? Pineda Jimenez ? Measurements Intervals ?[place] ? Rate: ? 52 ? P: ?64 NM: ? 187 ?QRS: ?-1 QRSD: ? 85 ? T: ?17 QT: ? 437 ? QTc: ?408 ? Interpretive Statements SINUS BRADYCARDIA Compared to ECG 12/03/2020 13:26:41 Sinus rhythm no longer present Procedure Note Pineda Jimenez MD - 04/18/2024 [facility] Test Date: 2024-04-18 Pat Name: WILY BAHENA Department: 85 Room: Gender: Male Pre Certification Specialist: : [id number] Requested By: BASHIR AVILEZ Order Number: [id number] Reading MD: Pineda Jimenez Measurements Intervals [place] Rate: 52 P: 64 NM: 187 QRS: -1 QRSD: 85 T: 17 QT: 437 QTc: 408 Interpretive Statements SINUS BRADYCARDIA Compared to ECG 12/03/2020 13:26:41 Sinus rhythm no longer present us Bashir Avilez MD ECG ORDERABLES Final Result Performing Organization Address City/[facility]/ZIP Co de Phone Number [facility] ([facility]) RAD * MRSA SCREENING (04/18/2024 3:06 PM CDT) SPEC DESCRIPTION NASAL 04/18/2024 3:02 PM CDT [facility] SPECIAL REQUESTS NO SPECIAL REQUEST 04/18/2024 3:02 PM CDT [facility] CULTURE RESULT NO METHICILLIN RESISTANT STAPHYLOCOCCUS AUREUS ISOLATED 04/20/2024 6:56 AM CDT [facility] SPECIMEN FROM INTERNAL NOSE / Unknown 04/18/2024 3:06 PM CDT 04/18/2024 3:07 PM CDT us Zay Juárez MD MICROBIOLOGY - GENERAL ORDERABLE S Final Result Performing Organization Address City/[facility]/ZIP Co de Phone Number [facility] [address] [place] [address], [place] [phone] [facility] [address] [place] [address], documented in this encounter Visit Diagnoses Diagnosis Preop testing- Primary Preoperative examination, unspecified Preop testing Preoperative examination, unspecified documented in this encounter Additional Health Concerns Assessment Noted Time PHQ-9 Depression Total Score: 4 07/20/20 23 11:48 AM AUTOMOTIVE FINANCE MANAGER documented as of this encounter Care Teams Drill Runner Helper Relationship Specialty Start Date End Date Johnathon Braga DO [address] [place] [address] PCP - General FAMILY PRACTICE 10/31/20 documented as of this encounter
--- OUTSIDE RECORDS SUMMARY | 2024-09-03 07:52 | XMS_ITS | Encounter Summary ---
Author Organization [facility] Address [address] [place] [address]. [place], [place] [address] [place] [address] Care Team Providers Care Industrial Gas Servicer Name Role Phone Johnathon Braga DO Primary Care Provider + Reason for Visit * Reason Comments Hospital Follow Up The patient was admi tted at [facility] for psychiatric condition Encounter Details Date Type Department Care Team (Late st Contact Info) Description 07/20/2023 10:40 AM MILITARY SCIENCE INSTRUCTOR Office Visit [facility] Family & Internal Medicine [facility] [address] [place] [address] Johnathon Braga DO [facility] [place] [address] Hospital Follow Up (The patient was admitted at [facility] for psychiatric condition ) Social History Tobacco Use Types Packs/Day [...] on file Legal Sex Male 11:26 AM MILITARY SCIENCE INSTRUCTOR Gender Identity Not on file Sexual Orientation Not on file documented as of this encounter Last Filed Vital Signs Vital Sign Reading Time Taken Comments Blood Pressure 98/52 07/20/2023 10:55 AM MILITARY SCIENCE INSTRUCTOR Pulse 61 07/20/2023 10:55 AM MILITARY SCIENCE INSTRUCTOR Temperature 36.6 ??C (97.8 ??F) 07/20/2023 10:[address] Respiratory Rate 16 07/20/2023 10:55 AM MILITARY SCIENCE INSTRUCTOR Oxygen Saturation 98% 07/20/2023 10:55 AM MILITARY SCIENCE INSTRUCTOR Inhaled Oxygen Concentration - - Weight 98.6 kg (217 lb 4.8 oz) 07/20/2023 10:55 AM MILITARY SCIENCE INSTRUCTOR Height 180.3 cm (5' 11 ) 07/20/2023 10:55 AM MILITARY SCIENCE INSTRUCTOR Body Mass Index 30.31 07/20/2023 10:55 AM MILITARY SCIENCE INSTRUCTOR documented in this encounter Progress Notes * Johnathon Braga, DO - 07/20/2023 10:40 AM CST Images from the original note were not included. GENERAL OFFICE VISIT Encounter Date: 07/20/2023 Chief Complaint: 67-year-old male presents for Hospital Follow Up (The patient was admitted at [facility] for psychiatric condition ) HPI: Pt presents for hospitalization follow-up. Pt was admitted to [facility] for fall, hypersexuality, and suicidal ideation. Pt had Paxil increased and stopped Provigil and testosterone. They stopped testosterone due to masturbation issues that have even led to being arrested per patient. Pt was seen by psychiatry last week, Dr. Last. Pt is in IOP. Pt has had increased diarrhea and problems with nightmare. Pt and states they stopped all of his vitamins as well as modifying the metformin back to a previous dosage. He has not had any other issues with sexual issues. They have had several issues regarding communication both during and after hospitalization. Review of Systems Constitutional: Negative for fever. Respiratory: Negative for shortness of breath. Cardiovascular: Negative for chest pain. Skin: Negative for rash. Neurological: See HPI [...] Dose - >Age 65 (Prefilled Syringe) 07/09/2023 [employer] ([employer]) COVID-19 AD26 VACCINE 0.5 ML IM SUSP [...] mouth daily with breakfast. 90 tablet 1 PARoxetine (PAXIL) 20 MG tablet Take 1 tablet (20 mg total) by mouth daily. propranolol LA (INDERAL LA) 60 MG 24 hr capsule Take 1 capsule (60 mg total) by mouth daily. 30 capsule 11 tamsulosin 0.4 MG Cap Take 1 capsule (0.4 mg total) by mouth daily. venlafaxine (EFFEXOR) 50 MG tablet Take 1 Tablet (50 mg) by mouth 3 times daily for 7 days, THEN 0.5 Tablets (25 mg) 3 times daily for 7 days, THEN 0.5 Tablets (25 mg) 2 times daily for 7 days, THEN 0.5 Tablets (25 mg) daily for 7 days. Alpha-Lipoic Acid 600 MG Tab Take 1 tablet by mouth daily. (Patient not taking: Reported on 07/20/2023) Multiple Vitamins-Minerals (CENTRUM ADULTS OR) Take 1 tablet by mouth daily. (Patient not taking: Reported on 07/20/2023) testosterone cypionate 200 MG/ML injection Inject 1 mL (200 mg total) into the muscle every 21 days. (Patient not taking: Reported on 07/20/2023) vitamin D3, cholecalciferol, 1000 UNIT Tab tablet Take 2 tablets (2,000 Units total) by mouth daily. (Patient not taking: Reported on 07/20/2023) No current facility-administered medications for this visit. [...] mg total) by mouth daily with breakfast. PARoxetine (PAXIL) 20 MG tablet Take 1 tablet (20 mg total) by mouth daily. propranolol LA (INDERAL LA) 60 MG 24 hr capsule Take 1 capsule (60 mg total) by mouth daily. tamsulosin 0.4 MG Cap Take 1 capsule (0.4 mg total) by mouth daily. venlafaxine (EFFEXOR) 50 MG tablet Take 1 Tablet (50 mg) by mouth 3 times daily for 7 days, THEN 0.5 Tablets (25 mg) 3 times daily for 7 days, THEN 0.5 Tablets (25 mg) 2 times daily for 7 days, THEN 0.5 Tablets (25 mg) daily for 7 days. Alpha-Lipoic Acid 600 MG Tab Take 1 tablet by mouth daily. (Patient not taking: Reported on 07/20/2023) Multiple Vitamins-Minerals (CENTRUM ADULTS OR) Take 1 tablet by mouth daily. (Patient not taking: Reported on 07/20/2023) testosterone cypionate 200 MG/ML injection Inject 1 mL (200 mg total) into the muscle every 21 days. (Patient not taking: Reported on 07/20/2023) vitamin D3, cholecalciferol, 1000 UNIT Tab tablet Take 2 tablets (2,000 Units total) by mouth daily. (Patient not taking: Reported on 07/20/2023) No current facility-administered medications on file prior to visit. Review of patient's allergies indicates: Allergen Reactions Carbamazepine Rash and Swelling Objective: Filed Vitals: 07/20/23 1055 BP: 98/52 Pulse: 61 Resp: 16 Temp: 97.8 ??F (36.6 ??C) TempSrc: Skin SpO2: 98% Weight: 98.6 kg (217 lb 4.8 oz) Height: 1.803 m (5' [...] & Plan: Wily was seen today for hospital follow up. Diagnoses and all orders for this visit: Moderate episode of recurrent major depressive disorder (CMS/HCC) Hypersexuality Prediabetes Discussion/Summary: Continue follow-up with IOP and psychiatry; will defer psychiatric medications their recommendations. Agree with testosterone cessation; side effects are outweighing benefits at this time. Return to previous dosing of metformin; it is unclear why it was changed upon discharge but patient has known previous issues with diarrhea with the previous dosing. We will have patient follow-up in 1.5 monthsas already scheduled for follow-up. Patient and verbalized understanding. I personally spent a total of 40 minutes on the day of the encounter. This includes [id number] and xbw-ysuc-jy-face time I provided on the day of the encounter & excludes time spent performing separately reportable services. Johnathon Braga DO TARY SCIENCE INSTRUCTOR documented in this encounter Plan of Treatment Upcoming Encounters Date Type Department Care Team (Late st Contact Info) Description 09/10/2024 11:30 AM MILITARY SCIENCE INSTRUCTOR Appointment [facility] [address] [place] [address] Zay Juárez [place] [id number] [address] 10/25/2024 9:20 AM MILITARY SCIENCE INSTRUCTOR Office Visit [facility] Family & Internal Medicine [address] [phone] Johnathon Braga DO [address] [place] [address] 11/21/2024 9:40 AM CDT Office Visit [facility] Multispecialty Care - [facility] [address] [facility], [address] [place] [address] Shelli Gonzalez MD [address] [place] [address] documented as of this encounter Visit Diagnoses Diagnosis Moderate episode of recurrent major depressive disorder ([facility])- Primary Hypersexuality Other specified psychosexual disorder Prediabetes Other abnormal glucose documented in this encounter Additional Health Concerns Assessment Noted Time PHQ-9 Depression Total Score: 4 07/20/20 23 11:48 AM MILITARY SCIENCE INSTRUCTOR documented as of this encounter Care Teams Industrial Gas Servicer Relationship Specialty Start Date End Date Johnathon Braga DO [address] [place] [address] PCP - General FAMILY PRACTICE 10/31/20 documented as of this encounter
--- OUTSIDE RECORDS SUMMARY | 2024-09-03 07:52 | XMS_ITS | Encounter Summary ---
Author Organization [facility] Address [address] [place] [address]. [place] [address] [place] [address] Care Team Providers Care Tobacco Drier Operator Name Role Phone Johnathon Braga Primary Care Provider + Encounter Details Date Type Department Care Team (Latest Contact Info) Description 06/08/2023 Travel Social History Tobacco Use Types Packs/Day [...] on file Legal Sex Male 11:26 AM GOODWILL AMBASSADOR Gender Identity Not on file Sexual Orientation Not on file documented as of this encounter Plan of Treatment Upcoming Encounters Date Type Department Care Team (Late st Contact Info) Description 09/10/2024 11:30 AM GOODWILL AMBASSADOR Appointment [facility] [address] [place], [place] [address] Zay Juárez [place] [address] [address] 10/25/2024 9:20 AM GOODWILL AMBASSADOR Office Visit [facility] Family & Internal Medicine [address] [address] Johnathon Braga DO [address] [place] [address] 11/21/2024 9:40 AM CDT Office Visit [facility] Multispecialty Care - [facility] [address] [facility], [address] [place] [address] Shelli Gonzalez MD [address] [place] [address] documented as of this encounter Visit Diagnoses Not on filedocumented in this encounter Additional Health Concerns Assessment Noted Time PHQ-9 Depression Total Score: 4 02/20/20 23 1:21 PM CDT documented as of this encounter Care Teams Tobacco Drier Operator Relationship Specialty Start Date End Date Johnathon Braga DO [facility] [place] [address] PCP - General FAMILY PRACTICE 10/31/20 documented as of this encounter
--- OUTSIDE RECORDS SUMMARY | 2024-09-03 07:52 | XMS_ITS | Encounter Summary ---
Author Organization [facility] Address [address] [place] [address]. [place] [address] [place] [address] Care Team Providers Care Manager Rn Case Name Role Phone Johnathon Braga Primary Care Provider + Encounter Details Date Type Department Care Team (Latest Contact Info) Description 07/08/2023 Scan [facility] HEALTH INFO SRVCS Scanned, Doc [...] file Legal Sex Male 11:26 AM DIRECTOR MEDICAL SAFETY Gender Identity Not on file Sexual Orientation Not on file documented as of this encounter Plan of Treatment Upcoming Encounters Date Type Department Care Team (Late st Contact Info) Description 09/10/2024 11:30 AM DIRECTOR MEDICAL SAFETY Appointment [facility] [address] [place] [address] Zay Juárez [place] [address] [address] 10/25/2024 9:20 AM DIRECTOR MEDICAL SAFETY Office Visit [facility] Family & Internal Medicine - [place] [address] [place] [address] Johnathon Braga DO [address] [place] [address] 11/21/2024 9:40 AM CDT Office Visit [facility] Multispecialty Care - [facility] [address] [facility], [address] [place] [address] Shelli Gonzalez MD 3 [place] [address] documented as of this encounter Visit Diagnoses Not on filedocumented in this encounter Additional Health Concerns Assessment Noted Time PHQ-9 Depression Total Score: 4 02/20/20 23 1:21 PM CDT documented as of this encounter Care Teams Manager Rn Case Relationship Specialty Start Date End Date Johnathon Braga DO [address] [place] [address] PCP - General FAMILY PRACTICE 10/31/20 documented as of this encounter
--- OUTSIDE RECORDS SUMMARY | 2024-09-03 07:52 | XMS_ITS | Encounter Summary ---
Author Organization [facility] Address [address] [place] [address]. [place], [place] [phone] [place] [address] Care Team Providers Care Road Supervisor Name Role Phone Johnathon Braga DO Primary Care Provider + Reason for Visit * Reason Onset Date Comments Results 09/11/2023 Encounter Details Date Type Department Care Team (Late st Contact Info) Description 09/11/2023 Telephone [facility] Family & Internal Medicine [facility] [address] [place] [phone] Johnathon Braga DO [address] [place], [place] [phone] Results Social History Tobacco Use Types Packs/Day [...] on file Legal Sex Male 11:26 AM FREIGHT SALES BROKER Gender Identity Not on file Sexual Orientation Not on file documented as of this encounter Progress Notes * Rosalba Perez MA - 09/11/2023 8:48 AM CST Patient notified and v/u GHT SALES BROKER * Rosalba Perez MA - 09/11/2023 8:14 AM CST Lmtc 09/11/23 GHT SALES BROKER * Rosalba Perez MA - 09/11/2023 8:14 AM CST ----- Message from Johnathon Braga DO sent at 09/10/2023 7:57 AM FREIGHT SALES BROKER ----- Potassium is back WNL; repeat with regular yearly labs. GHT SALES BROKER documented in this encounter Plan of Treatment Upcoming Encounters Date Type Department Care Team (Late st Contact Info) Description 09/10/2024 11:30 AM FREIGHT SALES BROKER Appointment [facility] [address] [place], [place] [phone] Zay Juárez [place] [address] [facility] [address] [place] [address] 10/25/2024 9:20 AM FREIGHT SALES BROKER Office Visit [facility] Family & Internal Medicine - [place] [address] [place] [address] Johnathon Braga DO [address] [place] [address] 11/21/2024 9:40 AM CDT Office Visit [facility] Multispecialty Care - [address], [address] [place] [phone] Shelli Gonzalez MD 3 [place] [address] documented as of this encounter Visit Diagnoses Not on filedocumented in this encounter Additional Health Concerns Assessment Noted Time PHQ-9 Depression Total Score: 4 07/20/20 23 11:48 AM FREIGHT SALES BROKER documented as of this encounter Care Teams Road Supervisor Relationship Specialty Start Date End Date Johnathon Braga DO [address] [place] [address] PCP - General FAMILY PRACTICE 10/31/20 documented as of this encounter
--- OUTSIDE RECORDS SUMMARY | 2024-09-03 07:52 | XMS_ITS | Encounter Summary ---
Author Organization [facility] Address [address] [place] [address]. 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 Gender Identity Not on file Sexual Orientation [...] st Contact Info) Description 09/10/2024 11:30 AM PLANT AND MAINTENANCE TECHNICIAN Appointment [facility] [address] [place] [address] Zay Juárez [place] [address] [facility] [address] [place] [phone] 10/25/2024 9:20 AM PLANT AND MAINTENANCE TECHNICIAN Office Visit [facility] Family & Internal Medicine - [place] [address] [place] [address] Johnathon Braga DO [address] [place] [address] 11/21/2024 9:40 AM CDT Office Visit [facility] Multispecialty Care - [facility] 3 [facility], [address] [place] [phone] Shelli Gonzalez MD 3 [place] [address] documented as of this encounter Procedures Procedure Name Priority Date/Time Associated Diagnosis Comments OUTSIDE PT/INR (SCAN ORDER) 02/18/2023 OUTSIDE LAB (SCAN ORDER) 02/18/2023 documented in this encounter Results * OUTSIDE PT/INR (SCAN) (02/18/2023) 02/18/2023 [facility] Scanned SCANNING Final Resu lt * OUTSIDE LAB (SCAN) (02/18/2023) 02/18/2023 [facility] Scanned SCANNING Final Resu lt documented in this encounter Visit Diagnoses Not on filedocumented in this encounter Additional Health Concerns Assessment Noted Time PHQ-9 Depression Total Score: 5 10/31/19 21 2:44 PM PLANT 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
--- OUTSIDE RECORDS SUMMARY | 2024-09-03 07:52 | XMS_ITS | Encounter Summary ---
Author Organization [facility] Address [address] [place] [address]. [place], [place] [address] [place] [address] Care Team Providers Care Break Off Worker Name Role Phone Johnathon Braga DO Primary Care Provider + Reason for Visit * Reason Onset Date Comments Prior Authorization 03/04/2023 Encounter Details Date Type Department Care Team (Late st Contact Info) Description 03/04/2023 Telephone [facility] Family & Internal Medicine [facility] [address] [place] [address] Johnathon Braga DO [address] [place], [place] [phone] Prior Authorization Social History Tobacco Use Types Packs/Day Years [...] on file Legal 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 No / Unsure 02/19/2023 1:12 PM CDT documented as of this encounter Progress Notes * Tonia Mireles MA - 03/04/2023 8:52 AM CDT Pharmacy sent fax stating PA was needed or change of RX. Dr. Janell morfin new scripts. One script for Memantine 5mg take one ta by mouth once daily for 1 week and increase by 1 tablet for weeks 2 and 3. Then start memantine 10mg BID on week four. Rx sent to pharm. documented in this encounter Plan of Treatment Upcoming Encounters Date Type Department Care Team (Late st Contact Info) Description 09/10/2024 11:30 AM RADIATION MONITOR Appointment [facility] [address] [place] [address] Zay Juárez [place] [address] [facility] [address] [place] [address] 10/25/2024 9:20 AM RADIATION MONITOR Office Visit [facility] Family & Internal Medicine - [place] [address] [place] [phone] Johnathon Braga, [address] [place] [address] 11/21/2024 9:40 AM CDT Office Visit [facility] Multispecialty Care - [address], [address] [place] [phone] Shelli Gonzalez MD [address] [place] [phone] documented as of this encounter Visit Diagnoses Diagnosis Dementia with mood disturbance, unspecified dementia severity, unspecified dementia type ([facility]) documented in this encounter Additional Health Concerns Assessment Noted Time PHQ-9 Depression Total Score: 4 02/20/20 23 1:21 PM CDT documented as of this encounter Care Teams Break Off Worker Relationship Specialty Start Date End Date Johnathon Braga DO [address] [place] [address] PCP - General FAMILY PRACTICE 10/31/20 documented as of this encounter
--- OUTSIDE RECORDS SUMMARY | 2024-09-03 07:52 | XMS_ITS | Encounter Summary ---
Author Organization [facility] Address [address] [place] [address]. [place], [place] [id number] [place] [id number] Care Team Providers Care Special Education Case Manager Name Role Phone Johnathon Braga DO Primary Care Provider + Reason for Visit * Reason Comments Diabetes 3 month follow up. Encounter Details Date Type Department Care Team (Late st Contact Info) Description 04/20/2024 8:20 AM CDT Office Visit [facility] Family & Internal Medicine [id number] [place] [address] Johnathon Braga DO [facility] [place] [address] Diabetes (3 month follow up. ) Social History [...] on file Legal Sex Male 11:26 AM COMPTOMETRIST Gender Identity Not on file Sexual Orientation Not on file documented as of this encounter Last Filed Vital Signs Vital Sign Reading Time Taken Comments Blood Pressure 124/82 04/20/2024 8:27 AM CDT Pulse 87 04/20/2024 8:27 AM CDT Temperature 36.8 ??C (98.2 ??F) 04/20/2024 8:27 AM CD T Respiratory Rate 16 04/20/2024 8:27 AM CDT Oxygen Saturation 98% 04/20/2024 8:27 AM CDT Inhaled Oxygen Concentration - - Weight 103.3 kg (227 lb 11.2 oz) 04/20/2024 8:27 AM CDT Height 180.3 cm (5' 11 ) 04/20/2024 8:27 AM CDT Body Mass Index 31.76 04/20/2024 8:27 AM CDT documented in this encounter Progress Notes * Johnathon Braga, DO - 04/20/2024 8:20 AM CDT Images from the original note were not included. GENERAL OFFICE VISIT Encounter Date: 04/20/2024 Chief Complaint: 68-year-old male presents for Diabetes (3 month follow up. ) HPI: Patient has Type 2 Diabetes. Patient has had diabetes for less than 1 year. Medications include glipizide; he had diarrhea with metformin. BS logs range: stable. Patient's weight has gone 12 lbs. Current symptoms include none. HGB A1C Date Value Ref [...] 07/02/2023 6.1 (H) <=5.6 % Final Pt will have umbilical hernia repair tomorrow. Pt had fibular fracture on the left side diagnosed on 02/09/24. Pt is still having trouble with this. Pt is still doing PT. Pt still has some swelling in the area. Pt may need an MRI. Patient presents for follow-up on HLD. Patient has had HLD for multiple years. Current medications include atorvastatin. Current side effects include none. Patient does not need labs drawn today. Patient presents for follow-up on essential hypertension. Patient has had hypertension for multipleyears. Current medications include Chlorthalidone and Propranolol LA . Patient's blood pressure is well controlled at this time. No side effects noted from medications. Concurrent conditions include H yperlipidemia. Pt still needs diarrhea labs and imaging. Review of Systems Constitutional: Negative for fever. Respiratory: Negative for shortness of breath. Cardiovascular: Negative for chest pain. Gastrointestinal: Positive for diarrhea. See HPI Psychiatric/Behavioral: Sees psych Patient Active Problem List Diagnosis Benign essential tremor Calculus of kidney Convergence insufficiency Dizziness Fatigue Hypertension Idiopathic gout Postconcussion syndrome Post-traumatic headache, not intractable Syncope Visual disturbance Irritability and anger Hypogonadism in male Lesion of ulnar nerve Prediabetes Cubital tunnel syndrome on left Marital relationship problem Moderate episode of recurrent major depressive disorder ([facility]/HCC HHS/HCC) Paraphilia, unspecified Severe recurrent major depression without psychotic features ([facility]/HCC HHS/HCC) Sexual behavior disorder Cataract of both eyes, unspecified cataract type ROSEMARIE (obstructive sleep apnea) Hypersexuality Umbilical hernia without obstruction or gangrene Past Medical History: Diagnosis Date Closed fibular fracture 04/20/2024 Dementia ([facility]/HCC HHS/HCC) Diabetes mellitus ([facility] HHS/HCC) Excessive anger Gout Hypertension Kidney stone [...] Insecurity: No Food Insecurity (07/15/2023) Received from [place] [place] [facility] Food Insecurity Social/Environmental Concerns: No concerns Transportation Needs: No Transportation Needs (07/15/2023) [facility] [place] [place] [facility] Needs Social/Environmental Concerns: No concerns Physical Activity: Not on file Stress: Not on file Social Connections: Not on file Intimate Partner Violence: Not At Risk (07/02/2023) Received from [place] [place] [facility] Intimate Partner Violence Are you in a relationship with someone who hurts you emotionally and/or physically?: No Housing Stability: Low Risk (07/15/2023) Received from [place] [place] [facility] Housing Stability Social/Environmental Concerns: No concerns Immunization History Administered Date(s) Administered Fluzone High Dose - >Age 65 (Prefilled Syringe) 07/09/2023 Directworks (BDA) COVID-19 AD26 VACCINE 0.5 ML IM SUSP 11/22/2020 Td 05/04/2008 Tdap (Generic) 06/04/2021 Current Outpatient Medications Medication Sig Dispense Refill allopurinol (ZYLOPRIM) 300 MG tablet Take 1 tablet by mouth once daily 90 tablet 0 Alpha-Lipoic Acid 600 MG Tab Take 1 tablet by mouth daily. atorvastatin (LIPITOR) 10 MG tablet take 1 tablet by mouth nightly at bedtime 90 tablet 0 chlorthalidone (HYGROTEN) 25 MG [...] BREAK OR CRUSH TABLET 30 tablet 1 Glucose Blood (ACCU-CHEK GUIDE) test strip 1 strip by Other route as needed. Use once daily in the AM while fasting. 100 strip 1 Glucose Blood (ACCU-CHEK GUIDE) test strip 1 strip by Other route every morning before breakfast. Use as instructed 100 strip 1 Glucose Blood ([facility] GLUCOSE METER TEST [...] daily. Use accu-check brand. 100 each 1 meclizine (ANTIVERT) 25 MG tablet Take 1 [...] Carbamazepine Rash and Swelling Objective: Filed Vitals: 04/20/24 0827 BP: 124/82 Pulse: 87 Resp: 16 Temp: 98.2 ??F (36.8 ??C) TempSrc: Skin SpO2: 98% Weight: 103.3 kg (227 lb 11.2 oz) Height: 1.803 m (5' 11 ) [...] complication, without long-term current use of insulin ([facility]) - HEMOGLOBIN, GLYCOSYLATED - COLLECT.CAPILLARY (FNGR,HEEL,EAR) - Cancel: ALBUMIN URINE RANDOM W/CREATININE; Future - CBC W/DIFF AUTOMATED; Future - COMPREHENSIVE METABOLIC PANEL; Future - TSH W/REFLEX; Future - LIPID PANEL; Future - VITAMIN D, 25 OH TOTAL; Future - CBC W/DIFF AUTOMATED; Future - COMPREHENSIVE METABOLIC PANEL; Future - TSH W/REFLEX; Future - LIPID PANEL; Future - VITAMIN D, 25 OH TOTAL; Future - ALBUMIN/CREATININE RATIO, RANDOM URINE; Future - CBC W/DIFF AUTOMATED - COMPREHENSIVE METABOLIC PANEL - TSH W/REFLEX - LIPID PANEL - VITAMIN D, 25 OH TOTAL - ALBUMIN/CREATININE RATIO, RANDOM URINE Essential hypertension - Cancel: ALBUMIN URINE RANDOM W/CREATININE; Future - CBC W/DIFF AUTOMATED; Future - COMPREHENSIVE METABOLIC PANEL; Future - TSH W/REFLEX; Future - LIPID PANEL; Future - VITAMIN D, 25 OH TOTAL; Future - CBC W/DIFF AUTOMATED; Future - COMPREHENSIVE METABOLIC PANEL; Future - TSH W/REFLEX; Future - LIPID PANEL; Future - VITAMIN D, 25 OH TOTAL; Future - CBC W/DIFF AUTOMATED - COMPREHENSIVE METABOLIC PANEL - TSH W/REFLEX - LIPID PANEL - VITAMIN D, 25 OH TOTAL Hyperlipidemia, unspecified hyperlipidemia type - Cancel: ALBUMIN URINE RANDOM W/CREATININE; Future - CBC W/DIFF AUTOMATED; Future - COMPREHENSIVE METABOLIC PANEL; Future - TSH W/REFLEX; Future - LIPID PANEL; Future - VITAMIN D, 25 OH TOTAL; Future Vitamin D deficiency - VITAMIN D, 25 OH TOTAL; Future - CBC W/DIFF AUTOMATED; Future - COMPREHENSIVE METABOLIC PANEL; Future - TSH W/REFLEX; Future - LIPID PANEL; Future - VITAMIN D, 25 OH TOTAL; Future - CBC W/DIFF AUTOMATED - COMPREHENSIVE METABOLIC PANEL - TSH W/REFLEX - LIPID PANEL - VITAMIN D, 25 OH TOTAL Diarrhea, unspecified type - STOOL FOR WBC; Future - O&P CONC&SMEAR TO REF LAB; Future - CRYPTOSPOR/GIARDIA AG, EIA; Future - Stool Culture; Future - OCCULT BLOOD, FECES; Future - CLOSTRIDIUM DIFFICILE; Future - STOOL FOR WBC - O&P CONC&SMEAR TO REF LAB - CRYPTOSPOR/GIARDIA AG, EIA - Stool Culture - OCCULT BLOOD, FECES - CLOSTRIDIUM DIFFICILE Umbilical hernia without obstruction or gangrene BMI 31.0-31.9,adult Discussion/Summary: Continue current meds as prescribed for T2DM, HLD, and HTN as well as lifestyle changes; stable today. Will order blood/urine tests to be done prior to next OV. Will reorder stool study and have pt obtain XR as previously ordered. F/u with orthopedics and GS as recommended. Will have pt f/u in 3 months or sooner if needed. Pt v/u. Johnathon Braga DO documented in this encounter Plan of Treatment Upcoming Encounters Date Type Department Care Team (Late st Contact Info) Description 09/10/2024 11:30 AM COMPTOMETRIST Appointment [facility] [address] [place] [address] [place]ay [place] [id number] [address] 10/25/2024 9:20 AM COMPTOMETRIST Office Visit [facility] Family & Internal Medicine - [address] [phone] Johnathon Braga DO [address] [place] [address] 11/21/2024 9:40 AM CDT Office Visit [facility] Multispecialty Care - [facility] [address] [facility], [address] [place] [phone] Shelli Gonzalez MD [address] [place] [address] Scheduled Orders Name Type Priority Associated Diagnoses Orde r Schedule CBC W/DIFF AUTOMATED Lab Routine Type 2 diabetes mellitus without complication, without long-term current use of insulin ([facility]) Essential hypertension Hyperlipidemia, unspecified hyperlipidemia type Expected: 04/20/2024, Expires: 04/20/2025 COMPREHENSIVE METABOLIC PANEL Lab Routine Type 2 diabetes mellitus without complication, without long-term current use of insulin ([facility]) Essential hypertension Hyperlipidemia, unspecified hyperlipidemia type Expected: 04/20/2024, Expires: 04/20/2025 TSH W/REFLEX Lab Routine Type 2 diabetes mellitus without complication, without long-term current use of insulin ([facility]) Essential hypertension Hyperlipidemia, unspecified hyperlipidemia type Expected: 04/20/2024, Expires: 04/20/2025 LIPID PANEL Lab Routine Type 2 diabetes mellitus without complication, without long-term current use of insulin ([facility]) Essential hypertension Hyperlipidemia, unspecified hyperlipidemia type Expected: 04/20/2024, Expires: 04/20/2025 VITAMIN D, 25 OH TOTAL Lab Routine Type 2 diabetes mellitus without complication, without long-term current use of insulin ([facility]) Essential hypertension Hyperlipidemia, unspecified hyperlipidemia type Vitamin D deficiency Expected: 04/20/2024, Expires: 04/20/2025 STOOL FOR WBC Microbiology Routine Diarrhea, unspecified type Expected: 04/20/2024, Expires: 04/20/2025 O&P CONC&SMEAR TO REF LAB Microbiology Routine Diarrhea, unspecified type Expected: 04/20/2024, Expires: 04/20/2025 CRYPTOSPOR/GIARDIA AG, EIA Microbiology Routine Diarrhea, unspecified type Expected: 04/20/2024, Expires: 04/20/2025 Stool Culture Microbiology Routine Diarrhea, unspecified type Expected: 04/20/2024, Expires: 04/20/2025 OCCULT BLOOD, FECES Microbiology Routine Diarrhea, unspecified type Expected: 04/20/2024, Expires: 04/20/2025 CLOSTRIDIUM DIFFICILE Microbiology Routine Diarrhea, unspecified type Expected: 04/20/2024, Expires: 04/20/2025 documented as of this encounter Procedures Procedure Name Priority Date/Time Associated Diagnosis Comments TSH W/REFLEX Routine 07/14/2024 12:19 PM CDT Type 2 diabetes mellitus without complication, without long-term current use of insulin ([facility]) Essential hypertension Vitamin D deficiency VITAMIN D, 25 OH TOTAL Routine 12:19 PM CDT Type 2 diabetes mellitus without complication, without long-term current use of insulin ([facility]) Essential hypertension Vitamin D deficiency ALBUMIN URINE RANDOM W/CREATININE Routine 07/14/2024 12:19 PM CDT Type 2 diabetes mellitus without complication, without long-term current use of insulin ([facility]) COMPREHENSIVE METABOLIC PANEL Routine 07/14/2024 12:19 PM CDT Type 2 diabetes mellitus without complication, without long-term current use of insulin ([facility]) Essential hypertension Vitamin D deficiency LIPID PANEL Routine 07/14/2024 12:19 PM CDT Type 2 diabetes mellitus without complication, without long-term current use of insulin ([facility]) Essential hypertension Vitamin D deficiency CBC W/DIFF AUTOMATED Routine 07/14/2024 12:19 PM CDT Type 2 diabetes mellitus without complication, without long-term current use of insulin ([facility] HHS/[facility]) Essential hypertension Vitamin D deficiency COLLECT.CAPILLARY (FNGR,HEEL,EAR) Routine 04/20/2024 8:19 AM CDT Type 2 diabetes mellitus without complication, without long-term current use of insulin ([facility]HS/[facility]) HEMOGLOBIN, GLYCOSYLATED Routine 04/20/2024 Type 2 diabetes mellitus without complication, without long-term current use of insulin ([facility]) documented in this encounter Results * ALBUMIN/CREATININE RATIO, RANDOM URINE (07/14/2024 12:19 PM CDT) CREATININE RANDOM (U) 138 20 - 320 mg/dL [facility] MICROALBUMIN (U) 1.1 See Note: mg/dL [facility] Comment: Reference Range: Reference Range Not established MICROALB/CREAT 8 <30 mg/g creat [facility] Comment: The ADA defines abnormalities in [...] PM CDT 07/14/2024 12:27 PM CDT Narrative [facility] - [facility] ORDERS - 07/15/2024 9:23 PM CDT COLLECTION KIT GIVEN TO PATIENT. PATIENT ADVISED TO RETURN. Resulting Agency Comment Performing Organization Information: ?Site ID: [place] ?Name: [facility] ?Address: [address] [place] [address] ?Director: Refugio Pennington MD us Johnathon Braga DO URINE ORDERABLES Final R esult [facility] - [facility] ELODIA [facility] [address] [place] [address], GR * VITAMIN D, 25 OH TOTAL (07/14/2024 12:19 PM CDT) VITAMIN D 25 HYDROXY TOTAL S/P/B 35 30 - 100 ng/mL [facility] Comment: Vitamin D Status ? 25-OH Vitamin D: Deficiency: ?<20 ng/mL Insufficiency: ? 20 - 29 ng/mL Optimal: ? > or = 30 ng/mL For 25-OH Vitamin D testing on patients on D2-supplementation and patients for whom quantitation of D2 and D3 fractions is required, the QuestAssureD(TM) 25-OH VIT D, (D2,D3), LC/MS/MS is recommended: order code 61152 (patients >2yrs). See Note 1 Note 1 For additional information, please refer to http://education.Brightstorm/faq/UWG401 (This link is being provided for informational/ educational purposes only.) 07/14/2024 12:1 9 PM CDT 07/14/2024 12:27 PM CDT Narrative [facility] CLIFTON - 07/15/2024 9:23 PM CDT COLLECTION KIT GIVEN TO PATIENT. PATIENT ADVISED TO RETURN. Resulting Agency Comment Performing Organization Information: ?Site ID: [place] ?Name: [facility] ?Address: [address] [place] [address] ?Director: Refugio Pennington MD Johnathon Braga DO LABORATORY Final Re sult [facility] [address] [place] [address], * (ABNORMAL) LIPID PANEL (07/14/2024 12:19 PM CDT) CHOLESTEROL 107 <200 mg/dL [facility] HDL 28(L) > OR = 40 mg/dL [facility] TRIGLYCERIDES 143 <150 mg/dL [facility] LDL (CALCULATED) 56 mg/dL (calc) [facility] Comment: Reference range: <100 Desirable range <100 mg/dL for primary prevention; ?? <70 mg/dL for patients with CHD or diabetic patients with > or = 2 CHD risk factors. LDL-C is now calculated using the Yifan calculation, which is a validated novel method providing better accuracy than the Friedewald equation in the estimation of LDL-C. Jimbo POWELL et al. YAMILET. 2013;310(19): 9375-2587 (http://education.Brightstorm/faq/IMV420) CHOL/HDL RATIO 3.8 <5.0 (calc) [facility] NON HDL CHOLESTEROL 79 <130 mg/dL (calc) [facility] Comment: For patients with diabetes plus 1 major ASCVD risk factor, treating to a non-HDL-C goal of <100 mg/dL (LDL-C of <70 mg/dL) is considered a therapeutic option. 07/14/2024 12:1 9 PM CDT 07/14/2024 12:27 PM CDT Narrative [facility] - 07/15/2024 9:23 PM CDT COLLECTION KIT GIVEN TO PATIENT. PATIENT ADVISED TO RETURN. Resulting Agency Comment Performing Organization Information: ?Site ID: [place] ?Name: [facility] ?Address: [address] [place] [address] ?Director: Refugio Pennington MD Johnathon Braga DO LABORATORY Final Re sult [facility] - [facility] [address] [place] [address], * TSH W/REFLEX (07/14/2024 12:19 PM CDT) TSH 0.74 0.40 - 4.50 mIU/L [facility] 07/14/2024 12:1 9 PM CDT 07/14/2024 12:27 PM CDT Narrative [facility] - [facility] - 07/15/2024 9:23 PM CDT COLLECTION KIT GIVEN TO PATIENT. PATIENT ADVISED TO RETURN. Resulting Agency Comment Performing Organization Information: ?Site ID: [place] ?Name: [employer] ?Address: [address], [place] [address] ?Director: Refugio Pennington MD Johnathon Braga DO LABORATORY Final Re sult [facility] - [facility] [facility] [address] [place] [address], * (ABNORMAL) COMPREHENSIVE METABOLIC PANEL (07/14/2024 12:19 PM CDT) [facility] GLUCOSE 109(H) 65 - 99 mg/dL [facility] Comment: ? Fasting reference interval For someone without known diabetes, a glucose value between 100 and 125 mg/dL is consistent with prediabetes and should be confirmed with a follow-up test. BUN 14 7 - 25 mg/dL [facility] CREATININE S/P/B 0.84 0.70 - 1.35 mg/dL [facility] GFR ESTIMATE 96 > OR = 60 mL/min/1. 73m2 [facility] BUN CREATININE RATIO SEE NOTE: (calc) [facility] Comment: ?? Not Reported: BUN and Creatinine are within ?? reference range. ? SODIUM S/P/B 141 135 - 146 mmol/L [facility] POTASSIUM S/P/B 4.2 3.5 - 5.3 mmol/L [facility] CHLORIDE S/P/B 106 98 - 110 mmol/L [facility] CO2 29 20 - 32 mmol/L [facility] CALCIUM S/P/B 8.8 8.6 - 10.3 mg/dL [facility] TOTAL PROTEIN S/P/B 6.9 6.1 - 8.1 g/dL [facility] ALBUMIN S/P/B 4.1 3.6 - 5.1 g/dL [facility] GLOBULIN 2.8 1.9 - 3.7 g/dL (calc) [facility] ALBUMIN/GLOBULI N RATIO 1.5 1.0 - 2.5 (calc) [facility] BILIRUBIN TOTAL S/P/B 0.7 0.2 - 1.2 mg/dL [facility] ALKALINE PHOSPHATASE S/P/B 134 35 - 144 U/L [facility] AST 22 10 - 35 U/L [facility] ALT 30 9 - 46 U/L [facility] 07/14/2024 12:1 9 PM CDT 07/14/2024 12:27 PM CDT Narrative [facility] - [facility]DERS - 07/15/2024 9:23 PM CDT COLLECTION KIT GIVEN TO PATIENT. PATIENT ADVISED TO RETURN. Resulting Agency Comment Performing Organization Information: ?Site ID: [place] ?Name: [facility] Sharpe ?Address: [id number] [place] [address] ?Director: Refugio Pennington MD us Johnathon Braga DO LABORATORY Final Re sult [facility] [address] [place] [address], * (ABNORMAL) CBC W/DIFF AUTOMATED (07/14/2024 12:19 PM CDT) WBC 6.1 3.8 - 10.8 Thousand/u L [facility] RBC 5.37 4.20 - 5.80 Million/uL [facility] HGB 16.8 13.2 - 17.1 g/dL [facility] HCT 48.9 38.5 - 50.0 % [facility] MCV 91.1 80.0 - 100.0 fL [facility] MCH 31.3 27.0 - 33.0 pg [facility] MCHC 34.4 32.0 - 36.0 g/dL [facility] Comment: For adults, a slight decrease in the calculated MCHC value (in the range of 30 to 32 g/dL) is most likely not clinically significant; however, it should be interpreted with caution in correlation with other red cell parameters and the patient's clinical condition. RDW 13.0 11.0 - 15.0 % [facility] PLT 132(L) 140 - 400 Thousand/u L [facility] MPV 12.2 7.5 - 12.5 fL [facility] ABS. NEUTROPHILS 3,892 1,500 - 7,800 [...] Agency Comment Performing Organization Information: ?Site ID: [place] ?Name: [facility] ?Address: [address] [place] [phone] ?Director: Refugio Pennington MD us Johnathon Braga DO LABORATORY Final Re sult Performing Organization Address City/[facility]/ZIP Co de Phone Number [facility] [id number] [place] [address], * HEMOGLOBIN, GLYCOSYLATED (04/20/2024) HGB A1C 5.9 % [facility] 04/20/2024 us Johnathon Braga DO LABORATORY Final Re sult Performing Organization Address City/[facility]/ZIP Co de Phone Number [facility] [address] [place] [address], documented in this encounter Visit Diagnoses Diagnosis Type 2 diabetes mellitus without complication, without long-term current use of insulin ([facility])- Primary Essential hypertension Unspecified essential hypertension Hyperlipidemia, unspecified hyperlipidemia type Vitamin D deficiency Unspecified vitamin D deficiency Diarrhea, unspecified type Umbilical hernia without obstruction or gangrene Umbilical hernia without mention of obstruction or gangrene BMI 31.0-31.9,adult Body Mass Index 31.0-31.9, adult documented in this encounter Additional Health Concerns Assessment Noted Time PHQ-9 Depression Total Score: 4 07/20/20 23 11:48 AM COMPTOMETRIST documented as of this encounter Care Teams Special Education Case Manager Relationship Specialty Start Date End Date Johnathon Braga DO [address] [place], [place] [id number] PCP - General FAMILY PRACTICE 10/31/20 documented as of this encounter
--- OUTSIDE RECORDS SUMMARY | 2024-09-03 07:52 | XMS_ITS | Encounter Summary ---
Author Organization [facility] Address [address] [place] [address]. [place], [place] [address] [place] [address] Care Team Providers Care Mitigation Supervisor Name Role Phone Johnathon Braga DO Primary Care Provider + Reason for Visit * Reason Onset Date Comments Orders 02/09/2024 Encounter Details Date Type Department Care Team (Late st Contact Info) Description 02/09/2024 Telephone [facility] Medical [facility] Family & Internal Medicine [facility] [address] [place] [address] Johnathon Braga DO [address] [place], [place] [phone] Orders Social History Tobacco Use Types Packs/Day Years [...] on file Legal Sex Male 11:26 AM RESOURCES REPRESENTATIVE Gender Identity Not on file Sexual Orientation Not on file documented as of this encounter Progress Notes * Tonia Mireles MA - 02/09/2024 12:24 PM CDT Spoke with patient's and informed her the patient needs to be seen for evaluation and treatment. Offered appt with PCP on 02/10/2024 at 7am. Nayana states they are unable to make that appt. She states she is just wanting an xr ordered and she will take the patient to urgent care. * Klarissa Narayan - 02/09/2024 8:27 AM CDT Pts called in stating PT fell Thursday Evening 02/07/28 Pt hurt L ankle. Using Ice still having pain. Pt asking for xray. Please advise. documented in this encounter Plan of Treatment Upcoming Encounters Date Type Department Care Team (Late st Contact Info) Description 09/10/2024 11:30 AM RESOURCES REPRESENTATIVE Appointment [facility] [address] [place], [place] [phone] Zay Juárez [place] [address] [address] 10/25/2024 9:20 AM RESOURCES REPRESENTATIVE Office Visit [facility] Family & Internal Medicine - [address] [address] Johnathon Braga, [address] [place] [address] 11/21/2024 9:40 AM CDT Office Visit [facility] Multispecialty Care - [address], [address] [place] [address] Shelli Gonzalez MD [address] [place] [phone] documented as of this encounter Visit Diagnoses Not on filedocumented in this encounter Additional Health Concerns Assessment Noted Time PHQ-9 Depression Total Score: 4 07/20/20 23 11:48 AM RESOURCES REPRESENTATIVE documented as of this encounter Care Teams Mitigation Supervisor Relationship Specialty Start Date End Date Johnathon Braga DO [facility] [place] [address] PCP - General FAMILY PRACTICE 10/31/20 documented as of this encounter
--- OUTSIDE RECORDS SUMMARY | 2024-09-03 07:52 | XMS_ITS | Encounter Summary ---
Author Organization [facility] Address [address] [place] [address]. 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 Gender Identity Not on file Sexual Orientation Not on file documented as of this encounter Plan of Treatment Upcoming Encounters Date Type Department Care Team (Late st Contact Info) Description 09/10/2024 11:30 AM DYE WINCH OPERATOR Appointment [facility] [address] [place] [address] Zay Juárez [place] [address] [address] 10/25/2024 9:20 AM DYE WINCH OPERATOR Office Visit [facility] Family & Internal Medicine - [place] [address] [place] [address] Johnathon Braga DO [address] [place] [address] 11/21/2024 9:40 AM CDT Office Visit [facility] Multispecialty Care - [facility] [address] [facility], [address] [place] [address] Shelli Gonzalez MD [address] [place] [address] documented as of this encounter Visit Diagnoses Not on filedocumented in this encounter Additional Health Concerns Assessment Noted Time PHQ-9 Depression Total Score: 4 02/20/20 23 1:21 PM CDT documented as of this encounter Care Teams Can Machine Operator Relationship Specialty Start Date End Date Johnathon Braga DO [address] [place] [address] PCP - General FAMILY PRACTICE 10/31/20 documented as of this encounter
--- OUTSIDE RECORDS SUMMARY | 2024-09-03 07:52 | XMS_ITS | Encounter Summary ---
Author Organization [facility] Address [address] [place] [address]. [place], [place] [address] [place] [address] Care Team Providers Care Yard General Car Supervisor Name Role Phone Michael Meraz DO Primary Care Provider + Reason for Visit * Reason Onset Date Comments Medication Problem 12/14/2023 diarrhea Encounter Details Date Type Department Care Team (Late st Contact Info) Description 12/14/2023 Telephone [facility] Medical Group Family & Internal Medicine [facility] [address] [place] [phone] Michael Meraz DO [address] [place], [place] [phone] Medication Problem (diarrhea) Social History Tobacco Use Types Packs/Day Years [...] on file Legal Sex Male 11:26 AM CHILDREN'S LUNCHROOM SUPERVISOR Gender Identity Not on file Sexual Orientation Not on file documented as of this encounter Progress Notes * Tonia Mireles MA - 12/15/2023 3:17 PM CDT Spoke with thomas and informed her of plan of care. She v/u and states they will c/b if patient has questions or concerns. * Michael Meraz DO - 12/14/2023 5:04 PM CDT Have pt hold glipizide for 1 week and call back if still not improving. Clarify if pt has any abdominal pain with these episodes. Will order stool studies and XR to obtain if symptoms do not resolve. * Gema Avalos MA - 12/14/2023 3:08 PM CDT 12-14-23: Patient Thomas called stating the patient is having problems with continued diarrhea. Was having the issue with metformin and placed on Glipizide and still having the problem and didn't know if that was a side effect also. Patient is still having to go to the bathroom several times a day. Also, having accidents during the day and in the middle of the night. Not sure if can take something along with medication to help with diarrhea. Explained will send a message to Dr. Meraz. Verbally understands shannon butler documented in this encounter Plan of Treatment Upcoming Encounters Date Type Department Care Team (Late st Contact Info) Description 09/10/2024 11:30 AM CHILDREN'S LUNCHROOM SUPERVISOR Appointment [facility] [address] [place] [address] Zay Juárez [place] [address] [facility] [address] [place] [address] 10/25/2024 9:20 AM CHILDREN'S LUNCHROOM SUPERVISOR Office Visit [facility] Medical Group Family & Internal Medicine [address] [address] Michael Meraz DO [address] [place] [address] 11/21/2024 9:40 AM CDT Office Visit [facility] Medical Group Multispecialty Care - [facility] [address] [facility], [address] [place] [phone] Shelli Gonzalez MD 3 [place] [address] Scheduled Orders Name Type Priority Associated Diagnoses Orde r Schedule STOOL FOR WBC Microbiology Routine Diarrhea, unspecified type Expected: 12/14/2023, Expires: 12/13/2024 O&P CONC&SMEAR TO REF LAB Microbiology Routine Diarrhea, unspecified type Expected: 12/14/2023, Expires: 12/13/2024 CRYPTOSPOR/GIARDIA AG, EIA Microbiology Routine Diarrhea, unspecified type Expected: 12/14/2023, Expires: 12/13/2024 Stool Culture Microbiology Routine Diarrhea, unspecified type Expected: 12/14/2023, Expires: 12/13/2024 OCCULT BLOOD, FECES Microbiology Routine Diarrhea, unspecified type Expected: 12/14/2023, Expires: 12/13/2024 CLOSTRIDIUM DIFFICILE Microbiology Routine Diarrhea, unspecified type Expected: 12/14/2023, Expires: 12/13/2024 documented as of this encounter Results * XR ABD FLAT+UPRIGHT (04/20/2024 9:15 AM CDT) Anatomical Region Laterality Modality Abdomen Radiographic Martina ging 04/20/2024 9:26 AM CDT Impressions 04/20/2024 9:28 AM CDT IMPRESSION: 1. Nonobstructive bowel gas pattern. 2. Mild to moderate colonic stool burden. 3. Probable bilateral intrarenal calculi. Ordered By: MICHAEL MERAZ Interpreted By: Bashir Solano MD, 04/20/2024 9:26 AM Narrative 04/20/2024 9:28 AM CDT Examination: XR ABD FLAT+UPRIGHT Exam time: 04/20/2024 9:15 AM Clinical history: Diarrhea Comparison: No prior exam Technique: AP supine views. AP upright views. Findings: Nonobstructive bowel gas pattern. No evidence of focal gastric, small bowel, or colonic gaseous distention. Gas is present within nondistended stomach. Minimal gas within nondistended small bowel right mid abdomen. Mild to moderate amount of mixed gas and stool density projects throughout the expected position of nondistended colon and rectum. No evidence of abnormal soft tissue densities. Multiple calcifications are present within the expected position of each kidney and would most likely represent bilateral intrarenal calculi. The largest calcifications measure approximately 6 mm. No evidence of differential air-fluid levels or free intraperitoneal air on the upright image. Procedure Note Bashir Solano MD - 04/20/2024 Examination: XR ABD FLAT+UPRIGHT Exam time: 04/20/2024 9:15 AM Clinical history: Diarrhea Comparison: No prior exam Technique: AP supine views. AP upright views. Findings: Nonobstructive bowel gas pattern. No evidence of focal gastric,small bowel, or colonic gaseous distention. Gas is present withinnondistended stomach. Minimal gas within nondistended small bowel rightmid abdomen. Mild to moderate amount of mixed gas and stool densityprojects throughout the expected position of nondistended colon andrectum. No evidence of abnormal soft tissue densities. Multiplecalcifications are present within the expected position of each kidney andwould most likely represent bilateral intrarenal calculi. The largestcalcifications measure approximately 6 mm. No evidence of differentialair-fluid levels or free intraperitoneal air on the upright image. IMPRESSION: 1. Nonobstructive bowel gas pattern. 2. Mild to moderate colonic stool burden. 3. Probable bilateral intrarenal calculi. Ordered By: MICHAEL MERAZ Interpreted By: Bashir Solano MD, 04/20/2024 9:26 AM us Michael Meraz DO GENERAL IMAGING Final Re sult documented in this encounter Visit Diagnoses Diagnosis Diarrhea, unspecified type- Primary documented in this encounter Additional Health Concerns Assessment Noted Time PHQ-9 Depression Total Score: 4 07/20/20 23 11:48 AM CHILDREN'S LUNCHROOM SUPERVISOR documented as of this encounter Care Teams Yard General Car Supervisor Relationship Specialty Start Date End Date Michael Meraz DO [address] [place] [address] PCP - General FAMILY PRACTICE 10/31/20 documented as of this encounter
--- OUTSIDE RECORDS SUMMARY | 2024-09-03 07:52 | XMS_ITS | Encounter Summary ---
Author Organization [facility] Address [address] [place] [address]. [place], [place] [address] [place] [address] Care Team Providers Care Boom Tender Name Role Phone Johnathon Braga DO Primary Care Provider + Reason for Visit * Reason Onset Date Comments Other 12/28/2023 Encounter Details Date Type Department Care Team (Late st Contact Info) Description 12/28/[address] [facility] Family & Internal Medicine [facility] [address] [place] [address] Johnathon Braga DO [address] [place], [place] [phone] Other Social History Tobacco Use Types Packs/Day Years [...] on file Legal Sex Male 11:26 AM NITRATOR OPERATOR Gender Identity Not on file Sexual Orientation Not on file documented as of this encounter Progress Notes * Spring Cohen MA - 12/28/2023 12:52 PM CDT Pts caregiver will resume this medication * Johnathon Braga DO - 12/28/2023 10:58 AM CDT We changed pt to glipizide at last OV in November. He should continue to take this. * Isadora Albarran - 12/28/2023 10:38 AM CDT Pt called and asked if pt should go back to taking his diabetes med. Because of severe diarhhea, He still has some but not as bad and wants to know if he should start taking it again. documented in this encounter Plan of Treatment Upcoming Encounters Date Type Department Care Team (Late st Contact Info) Description 09/10/2024 11:30 AM NITRATOR OPERATOR Appointment [facility] [address] [place] [address] Zay Juárez [place] [address] [facility] [address] [place] [address] 10/25/2024 9:20 AM NITRATOR OPERATOR Office Visit [facility] Family & Internal Medicine - [place] [address] [place] [address] Johnathon Braga DO [address] [place] [address] 11/21/2024 9:40 AM CDT Office Visit [facility] Medical [facility] Multispecialty Care - [address], [address] [place] [phone] Shelli Gonzalez MD [address] [place] [address] documented as of this encounter Visit Diagnoses Not on filedocumented in this encounter Additional Health Concerns Assessment Noted Time PHQ-9 Depression Total Score: 4 07/20/20 23 11:48 AM NITRATOR OPERATOR documented as of this encounter Care Teams Boom Tender Relationship Specialty Start Date End Date Johnathon Braga DO [address] [place] [address] PCP - General FAMILY PRACTICE 10/31/20 documented as of this encounter
--- OUTSIDE RECORDS SUMMARY | 2024-09-03 07:52 | XMS_ITS | Encounter Summary ---
Author Organization [facility] Address [address] [place] [address]. [place] [address] [place] [address] Care Team Providers Care Greeting Card Editor Name Role Phone Johnathon Braga Primary Care Provider + Encounter Details Date Type Department Care Team (Latest Contact Info) Description 04/20/2024 Travel Social History Tobacco Use Types Packs/Day [...] file Legal Sex Male 11:26 AM PRODUCTION LAPPING MACHINE OPERATOR Gender Identity Not on file Sexual Orientation Not on file documented as of this encounter Plan of Treatment Upcoming Encounters Date Type Department Care Team (Late st Contact Info) Description 09/10/2024 11:30 AM PRODUCTION LAPPING MACHINE OPERATOR Appointment [facility] [address] [place] [address] Zay Juárez MD [address] [place] [address] 10/25/2024 9:20 AM PRODUCTION LAPPING MACHINE OPERATOR Office Visit [facility] Medical Group Family & Internal Medicine [address] [address] Johnathon Braga DO [address] [place] [address] 11/21/2024 9:40 AM CDT Office Visit [facility] Medical Group Multispecialty Care - [facility] [address] [facility], [address] [place] [address] Shelli Gonzalez MD [address] [place] [address] documented as of this encounter Visit Diagnoses Not on filedocumented in this encounter Additional Health Concerns Assessment Noted Time PHQ-9 Depression Total Score: 4 07/20/20 23 11:48 AM PRODUCTION LAPPING MACHINE OPERATOR documented as of this encounter Care Teams Greeting Card Editor Relationship Specialty Start Date End Date Johnathon Braga DO [address] [place] [address] PCP - General FAMILY PRACTICE 10/31/20 documented as of this encounter
--- OUTSIDE RECORDS SUMMARY | 2024-09-03 07:52 | XMS_ITS | Encounter Summary ---
Author Organization [facility] Address [address] [place] [address]. [place], [place] [phone] [place] [address] Care Team Providers Care Imaging Engineer Name Role Phone Johnathon Braga Primary Care Provider + Reason for Visit * Reason Comments Memory Loss Encounter Details Date Type Department Care Team (Late st Contact Info) Description 05/19/2024 9:40 AM CDT Office Visit [facility] Medical Group Multispecialty Care - [address], [address] [place] [address] Shelli Hutchinson MD [address] [place] [address] Memory Loss Social History Tobacco Use Types Packs/Day Years Used Date Smoking Tobacco: Never Smokeless Tobacco: Never Tobacco Cessation:Counseling Given: No Comments:na Alcohol Use Standard Drinks/Week Comments Never [...] on file Legal Sex Male 11:26 AM EXPORT ADMINISTRATOR Gender Identity Not on file Sexual Orientation Not on file documented as of this encounter Last Filed Vital Signs Vital Sign Reading Time Taken Comments Blood Pressure 101/60 05/19/2024 9:55 AM CDT Pulse 46 05/19/2024 9:55 AM CDT Temperature - - Respiratory Rate - - Oxygen Saturation 96% 05/19/2024 9:55 AM CDT Inhaled Oxygen Concentration - - Weight 104.3 kg (230 lb) 05/19/2024 9:55 AM CDT Height 180.3 cm (5' 11 ) 05/19/2024 9:55 AM CDT Body Mass Index 32.08 05/19/2024 9:55 AM CDT documented in this encounter Progress Notes * Shelli Hutchinson MD - 05/19/2024 9:40 AM CDT Neurology Clinic [facility] Medical Group Multispecialty Care - [address], [address] [facility] [address] Dept: [phone] Name: Wily Bahena Date of : 1955 PCP: Johnathon Braga DO Chief Complaint: Postconcussive syndrome History of Present Illness: Wily Bahena is a 68-year-old male with a past medical history significant for a remote history of head trauma complicated by behavioral disturbance, peripheral neuropathy, hypertension who was referred by No ref. provider found to the [facility]rology Clinic for evaluation of postconcussive syndrome. 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 His memory is not any better. He is seeing [facility] next week. He fell and broke his leg. Propanolol 60 mg and gabapentin 600 mg TID. He cannot get in touch with his psychiatrist. His is going to go to the office and figure out why they aren't getting back to them. Initial History: He presents with his who [...] also does counseling. They were following at [facility] for management of the symptoms. He has undergone EEG that was read as normal. Brain MRI in 2018 was normal. 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 is concerned that he continues to have [...] 6.3% he has family history of neuropathy Current Outpatient Medications Medication Sig Dispense Refill allopurinol (ZYLOPRIM) 300 MG tablet Take 1 tablet by mouth once daily 90 tablet 0 Alpha-Lipoic Acid 600 MG Tab Take 1 tablet by mouth daily. atorvastatin (LIPITOR) 10 MG tablet take 1 tablet by mouth nightly at bedtime 90 tablet 0 Blood Glucose Monitoring Suppl (D-CARE GLUCOMETER) w/Device Kit 1 Device by Does not apply route once for 1 dose. Accu-check brand 1 kit 0 cephALEXin (KEFLEX) 500 MG capsule Take [...] this visit. Past Medical History: Diagnosis Date Closed fibular fracture 04/20/2024 Dementia ([facility] HHS/HCC) Diabetes mellitus ([facility] HHS/HCC) Excessive anger Gout Hypertension Kidney stone [...] Vaping Use Vaping status: Never Used Substance Use Topics Alcohol use: Never Drug use: Never Review of Systems Neurological: Positive for dizziness, loss of consciousness and headaches. Psychiatric/Behavioral: Positive for memory loss. Filed Vitals: 05/19/24 0955 BP: 101/60 Pulse: (!) 46 SpO2: 96% Weight: 104.3 kg (230 lb) Height: 1.803 m (5' 11 ) GENERAL EXAMINATION Patient is in no apparent [...] See HPI Impression: Wily Bahena is a 68-year-old male with a past medical history significant for head trauma complicated by behavioral disturbance, peripheral neuropathy, hypertension who was referred [facility] for evaluation of postconcussive syndrome. He continues to struggle with disinhibition and aggression following his traumatic brain injury. Hehas failed multiple medications. Recommend he continue to follow psychiatry. His [...] Recommend thathe take gabapentin scheduled 3 times daily. 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 Max dose given his bradycardia. -Continue to follow psychiatry for management of behaviors -Can continue Aricept as prescribed, following with [facility] #Peripheral neuropathy - Continue B12 supplementation - Continue management of diabetes -Take gabapentin 600 mg TID as prescribed - Counseled on fall precautions #Caregiver -Given information of how to seek payment for being a caregiver SHELLI HUTCHINSON MD I spent 45 minutes today reviewing the patient's medical record, obtaining history, performing an exam, ordering medications, tests, and/or procedures, documenting in the medical record, counseling and educating the patient and family , reviewing and communicating test results, and coordinating care. documented in this encounter Plan of Treatment Upcoming Encounters Date Type Department Care Team (Late st Contact Info) Description 09/10/2024 11:30 AM EXPORT ADMINISTRATOR Appointment [facility] [address] [place] [address] Zay Juárez [place] [address] [address] 10/25/2024 9:20 AM EXPORT ADMINISTRATOR Office Visit [facility] Family & Internal Medicine - [place] [id number] [place] [address] [place] [address] [place] [address] 11/21/2024 9:40 AM CDT Office Visit [facility] Multispecialty Care - [facility] [address] [facility], [address] [place] [address] Shelli Hutchinson MD [address] [place] [address] documented as of this encounter Visit Diagnoses Diagnosis Traumatic brain injury with loss of consciousness, sequela (CMS/HCC)- Primary Memory loss documented in this encounter Additional Health Concerns Assessment Noted Time PHQ-9 Depression Total Score: 4 07/20/20 23 11:48 AM EXPORT ADMINISTRATOR documented as of this encounter Care Teams Imaging Engineer Relationship Specialty Start Date End Date Johnathon Braga DO [address] [place] [address] PCP - General FAMILY PRACTICE 10/31/20 documented as of this encounter
--- OUTSIDE RECORDS SUMMARY | 2024-09-03 07:52 | XMS_ITS | Encounter Summary ---
Author Organization [facility] Address [address] [place] [address]. [place] [address] [place] [address] Care Team Providers Care Special Events Coordinator Name Role Phone Johnathon Braga Timbo SHELTON Primary Care Provider + Reason for Visit * Reason Comments Establish Care Dr Nascimento patient. * Consultation (Routine) - Closed Specialty Diagnoses / Procedures Referred By Contac t Referred To Contact NEUROLOGY Diagnoses Traumatic brain injury with loss of consciousness, sequela ([facility]) Procedures OFFICE/OUTPT VISIT,NEW,LEVL III OFFICE/OUTPT VISIT,NEW,LEVL IV OFFICE/OUTPT VISIT,NEW,LEVL V OFFICE/OUTPT VISIT,EST,LEVL III OFFICE/OUTPT VISIT,EST,LEVL IV OFFICE/OUTPT VISIT,EST,LEVL V Sergio-Giuseppe Eduardo MD Phone: tel: fax: [facility]ERR[facility] [address] [place] [phone] Phone: tel: fax: Referral ID Status Reason Start Date Expiration Date V isits Requested Visits Authorized [id number] Closed Specialty Services 03/02/2023 03/02/2024 100 100 Encounter Details Date Type Department Care Team (Late st Contact Info) Description 09/03/2023 8:20 AM TABLE INSPECTOR Office Visit [facility] Multispecialty Care - [facility] 3 [facility], [address] [place] [address] Sonali Hutchnison MD [address] [place] [address] Establish Care (Dr Nascimento patient.) Social History Tobacco Use Types Packs/Day Years [...] on file Legal Sex Male 11:26 AM TABLE INSPECTOR Gender Identity Not on file Sexual Orientation Not on file documented as of this encounter Last Filed Vital Signs Vital Sign Reading Time Taken Comments Blood Pressure 109/66 09/03/2023 8:24 AM TABLE INSPECTOR Pulse 52 09/03/2023 8:24 AM TABLE INSPECTOR Temperature 36.4 ??C (97.6 ??F) 09/03/2023 8:24 AM CS T Respiratory Rate - - Oxygen Saturation 95% 09/03/2023 8:24 AM TABLE INSPECTOR Inhaled Oxygen Concentration - - Weight 102.5 kg (226 lb) 09/03/2023 8:24 AM TABLE INSPECTOR Height 180.3 cm (5' 11 ) 09/03/2023 8:24 AM TABLE INSPECTOR Body Mass Index 31.52 09/03/2023 8:24 AM TABLE INSPECTOR documented in this encounter Progress Notes * Sonali Hutchinson MD - 09/03/2023 8:20 AM CST Neurology Clinic [facility] Multispecialty Care - [address], [address] [facility] [address] Dept: [phone] Name: Wily Bahena Date of : 1955 PCP: Johnathon Braga DO Chief Complaint: Postconcussive syndrome History of Present Illness: Wily Bahena is a 67-year-old male with a past medical history significant for a remote history of head trauma complicated by behavioral disturbance, peripheral neuropathy, hypertension who was referred by Giuseppe Lepe* to the Neurology Clinic for evaluation of postconcussive syndrome. They were last seen by DR nascimento and the plan was as follows: #History [...] Since he was last seen in clinic, he feels he is pretty much the same. He is getting fitted for CPAP on [place]. Needs propanolol refills. Initial History: He presents with his who [...] also does counseling. They were following at [facility] for management of the symptoms. He has [...] tablets (2,000 Units total) by mouth daily. Alpha-Lipoic Acid 600 MG Tab Take 1 [...] Psychiatric/Behavioral: Positive for memory loss. Filed Vitals: 09/03/23 0824 BP: 109/66 Pulse: (!) 52 Temp: 97.6 ??F (36.4 ??C) SpO2: 95% Weight: 102.5 kg (226 lb) Height: 1.803 m (5' 11 ) [...] multiple medications. Recommend he continue to follow psychiatry and . His vertigo could be related to contusions [...] to seek payment for being a caregiver SONALI HUTCHINSON MD I spent 45 minutes today reviewing the patient's medical record, obtaining history, performing an exam, ordering medications, tests, and/or procedures, documenting in the medical record, counseling and educating the patient and family , reviewing and communicating test results, and coordinating care. E INSPECTOR documented in this encounter Plan of Treatment Upcoming Encounters Date Type Department Care Team (Late st Contact Info) Description 09/10/2024 11:30 AM TABLE INSPECTOR Appointment [facility] [address] [place] [address] Zay Juá[place] [address] [facility] [address] [place] [address] 10/25/2024 9:20 AM TABLE INSPECTOR Office Visit [facility] Family & Internal Medicine [facility] [address] [place] [address] [place] [address] [place] [address] 11/21/2024 9:40 AM CDT Office Visit [facility] Multispecialty Care - [address], [address] [place] [phone] Sonali Hutchinson MD 3 [place] [address] documented as of this encounter Visit Diagnoses Diagnosis Memory loss Traumatic brain injury with loss of consciousness, sequela (CMS/HCC) documented in this encounter Additional Health Concerns Assessment Noted Time PHQ-9 Depression Total Score: 4 07/20/20 23 11:48 AM TABLE INSPECTOR documented as of this encounter Care Teams Special Events Coordinator Relationship Specialty Start Date End Date Johnathon Braga DO [address] [place] [address] PCP - General FAMILY PRACTICE 10/31/20 documented as of this encounter
--- OUTSIDE RECORDS SUMMARY | 2024-09-03 07:52 | XMS_ITS | Encounter Summary ---
Author Organization [facility] Address [address] [place] [address]. [place] [address] [place] [address] Care Team Providers Care Control Chemist Name Role Phone Johnathon Braga Primary Care Provider + Encounter Details Date Type Department Care Team (Latest Contact Info) Description 02/01/2024 Travel Social History Tobacco Use Types Packs/Day [...] on file Legal Sex Male 11:26 AM BUSINESS MANAGEMENT SPECIALIST Gender Identity Not on file Sexual Orientation Not on file documented as of this encounter Plan of Treatment Upcoming Encounters Date Type Department Care Team (Late st Contact Info) Description 09/10/2024 11:30 AM BUSINESS MANAGEMENT SPECIALIST Appointment [facility] [address] [place] [address] Zay Juárez MD [address] [place] [address] 10/25/2024 9:20 AM BUSINESS MANAGEMENT SPECIALIST Office Visit [facility] Group Family & Internal Medicine [address] [address] Johnathon Braga DO [address] [place] [address] 11/21/2024 9:40 AM CDT Office Visit [facility] Multispecialty Care - [facility] 3 [facility], [address] [place] [address] Shelli Gonzalez MD [address] [place] [address] documented as of this encounter Visit Diagnoses Not on filedocumented in this encounter Additional Health Concerns Assessment Noted Time PHQ-9 Depression Total Score: 4 07/20/20 23 11:48 AM BUSINESS MANAGEMENT SPECIALIST documented as of this encounter Care Teams Control Chemist Relationship Specialty Start Date End Date Johnathon Braga DO [address] [place] [address] PCP - General FAMILY PRACTICE 10/31/20 documented as of this encounter
--- OUTSIDE RECORDS SUMMARY | 2024-09-03 07:52 | XMS_ITS | Encounter Summary ---
Author Organization [facility] Address [address] [place] [address]. [place] [address] [place] [address] Care Team Providers Care Material Handler Loader Name Role Phone Johnathon Braga Primary Care Provider + Encounter Details Date Type Department Care Team (Latest Contact Info) Description 05/12/2023 Scan [facility] SRV[facility] Scanned, Doc [...] on file Legal Sex Male 11:26 AM TMH TEACHER Gender Identity Not on file Sexual Orientation Not on file documented as of this encounter Plan of Treatment Upcoming Encounters Date Type Department Care Team (Late st Contact Info) Description 09/10/2024 11:30 AM TMH TEACHER Appointment [facility] [address] [place] [address] Zay Juá[place] [address] [address] 10/25/2024 9:20 AM TMH TEACHER Office Visit [facility] Family & Internal Medicine - [place] [address] [place] [address] Johnathon Braga DO [address] [place] [address] 11/21/2024 9:40 AM CDT Office Visit [facility] Multispecialty Care - [facility] 3 [facility], [address] [place] [address] Shelli Gonzalez MD 3 [place] [address] documented as of this encounter Visit Diagnoses Not on filedocumented in this encounter Additional Health Concerns Assessment Noted Time PHQ-9 Depression Total Score: 4 02/20/20 23 1:21 PM CDT documented as of this encounter Care Teams Material Handler Loader Relationship Specialty Start Date End Date Johnathon Braga DO [address] [place] [address] PCP - General FAMILY PRACTICE 10/31/20 documented as of this encounter
--- OUTSIDE RECORDS SUMMARY | 2024-09-03 07:52 | XMS_ITS | Encounter Summary ---
Author Organization [facility] Address [address] [place] [address]. [place] [address] [place] [address] Care Team Providers Care Studio Hand Name Role Phone Johnathon Braga Primary Care Provider + Encounter Details Date Type Department Care Team (Latest Contact Info) Description 05/05/2024 Travel Social History Tobacco Use Types Packs/Day [...] on file Legal Sex Male 11:26 AM E BUSINESS MANAGER Gender Identity Not on file Sexual Orientation Not on file documented as of this encounter Plan of Treatment Upcoming Encounters Date Type Department Care Team (Late st Contact Info) Description 09/10/2024 11:30 AM E BUSINESS MANAGER Appointment [facility] [address] [place] [address] Zay Juárez MD [address] [place] [address] 10/25/2024 9:20 AM E BUSINESS MANAGER Office Visit [facility] Family & Internal Medicine [address] [address] Johnathon Braga DO [address] [place] [address] 11/21/2024 9:40 AM CDT Office Visit [facility] Multispecialty Care - [facility] 3 [facility], [address] [place] [address] Shelli Gonzalez MD 3 [place] [address] documented as of this encounter Visit Diagnoses Not on filedocumented in this encounter Additional Health Concerns Assessment Noted Time PHQ-9 Depression Total Score: 4 07/20/20 23 11:48 AM E BUSINESS MANAGER documented as of this encounter Care Teams Studio Hand Relationship Specialty Start Date End Date Johnathon Braga DO [address] [place] [address] PCP - General FAMILY PRACTICE 10/31/20 documented as of this encounter
--- OUTSIDE RECORDS SUMMARY | 2024-09-03 07:53 | XMS_ITS | Encounter Summary ---
Author Organization [facility] Address [address] [place] [address]. [place], [place] [address] [place] [address] Care Team Providers Care Attending Radiologist Name Role Phone Johnathon Braga DO Primary Care Provider + Reason for Visit * Reason Onset Date Comments Results 02/14/2022 Encounter Details Date Type Department Care Team (Late st Contact Info) Description 02/14/2022 Telephone [facility] Family & Internal Medicine [facility] [address] [place] [address] Johnathon Braga DO [address] [place], [place] [phone] Results Social History Tobacco Use Types Packs/Day [...] on file Legal Sex Male 11:26 AM ARCH SUPPORT MAKER Gender Identity Not on file Sexual Orientation Not on file COVID-19 Exposure Response Date Recorded In the last 10 days, have yo u been in contact with someone who was confirmed or suspected to have Coronavirus/COVID-19? No / Unsure 02/06/2022 10:01 AM CDT documented as of this encounter Progress Notes * Eufeima Roque RN - 02/18/2022 4:17 PM CDT Patient notified and verbalized understanding. Opportunity given for all questions to be answered, no further needs voiced at this time. LL-02/18/22 * Johnathon Braga DO - 02/18/2022 4:08 PM CDT Yes, that should be fine. * Eufemia Roque RN - 02/17/2022 12:25 PM CDT Patient is currently taking vit D 5000 IU and was told to take Vit D 2000 IU. Patient is wondering if he soul take 7000 IU or decrease to 2000 IU of vit D per day. Please advise LL-02/17/22 * Rosalba Perez MA - 02/14/2022 12:29 PM CDT Patient notified and v/u * Rosalba Perez MA - 02/14/2022 12:26 PM CDT ----- Message from Johnathon Braga DO sent at 02/14/2022 12:02 PM CDT ----- A1c is elevated; recommend lifestyle changes for this at this time. Vitamin D is mildly low; recommend 2000 IU daily. Repeat A1c in 6 months and Vitamin D in 1 year. documented in this encounter Plan of Treatment Upcoming Encounters Date Type Department Care Team (Late st Contact Info) Description 09/10/2024 11:30 AM ARCH SUPPORT MAKER Appointment [facility] [address] [place] [address] Zay Juá[place] [address] [facility] [address] [place] [address] 10/25/2024 9:20 AM ARCH SUPPORT MAKER Office Visit [facility] Family & Internal Medicine - [place] [address] [place] [address] Johnathon Braga DO [address] [place] [address] 11/21/2024 9:40 AM CDT Office Visit [facility] Multispecialty Care - [facility] 3 [facility], [address] [place] [address] Shelli Gonzalez MD 3 [place] [address] documented as of this encounter Visit Diagnoses Not on filedocumented in this encounter Additional Health Concerns Assessment Noted Time PHQ-9 Depression Total Score: 5 10/31/19 21 2:44 PM ARCH SUPPORT MAKER documented as of this encounter Care Teams Attending Radiologist Relationship Specialty Start Date End Date Johnathon Braga DO [address] [place] [address] PCP - General FAMILY PRACTICE 10/31/20 documented as of this encounter
--- OUTSIDE RECORDS SUMMARY | 2024-09-03 07:53 | XMS_ITS | Encounter Summary ---
Author Organization [facility] Address [address] [place] [address]. [place], [place] [address] [place] [address] Care Team Providers Care Car Restorer Name Role Phone Johnathon Braga Primary Care Provider + Encounter Details Date Type Department Care Team (Latest Contact Info) Description 02/06/2022 Travel Social History Tobacco Use Types Packs/Day [...] on file Legal Sex Male 11:26 AM FINANCIAL SUPERVISOR Gender Identity Not on file Sexual [...] st Contact Info) Description 09/10/2024 11:30 AM FINANCIAL SUPERVISOR Appointment [facility] [address] [place] [address] Zay Juárez [place] [address] [address] 10/25/2024 9:20 AM FINANCIAL SUPERVISOR Office Visit [facility] Family & Internal Medicine - [place] [address] [place] [address] Johnathon Braga DO [address] [place] [address] 11/21/2024 9:40 AM CDT Office Visit [facility] Multispecialty Care - [facility] 3 [facility], [address] [place] [address] Shelli Gonzalez MD 3 [place] [address] documented as of this encounter Visit Diagnoses Not on filedocumented in this encounter Additional Health Concerns Assessment Noted Time PHQ-9 Depression Total Score: 5 10/31/19 2:44 PM FINANCIAL SUPERVISOR documented as of this encounter Care Teams Car Restorer Relationship Specialty Start Date End Date Johnathon Braga DO [address] [place] [address] PCP - General FAMILY PRACTICE 10/31/20 documented as of this encounter
--- OUTSIDE RECORDS SUMMARY | 2024-09-03 07:53 | XMS_ITS | Encounter Summary ---
Author Organization [facility] Address [address] [place] [address]. [place], [place] [address] [place] [address] Care Team Providers Care Defective Cigarette Slitter Name Role Phone Johnathon Braga Primary Care Provider + Encounter Details Date Type Department Care Team (Latest Contact Info) Description 12/24/2020 Travel Social History Tobacco Use Types Packs/Day [...] 3, please move on to questions 3-9 1 10/31/2020 Sex and Gender Information Value Date Recorded Sex Assigned at Not on file Legal Sex Male 11:26 AM ESCALATOR OPERATOR Gender Identity Not on file Sexual Orientation Not on file COVID-19 Exposure Response Date Recorded In the last month, have you been in contact with someone who was confirmed or suspected to have Coronavirus / COVID-19? No / Unsure 12/24/2020 9:42 AM CDT documented as of this encounter Plan of Treatment Upcoming Encounters Date Type Department Care Team (Late st Contact Info) Description 09/10/2024 11:30 AM ESCALATOR OPERATOR Appointment [facility] [address] [place] [address] [place]ay [place] [address] [address] 10/25/2024 9:20 AM ESCALATOR OPERATOR Office Visit [facility] Family & Internal Medicine - [place] [address] [place] [address] Johnathon Braga DO [address] [place] [address] 11/21/2024 9:40 AM CDT Office Visit [facility] Multispecialty Care - [facility] 3 [facility], [address] [place] [phone] Shelli Gonzalez MD 3 [place] [address] documented as of this encounter Visit Diagnoses Not on filedocumented in this encounter Additional Health Concerns Assessment Noted Time PHQ-9 Depression Total Score: 5 10/31/19 21 2:44 PM ESCALATOR OPERATOR documented as of this encounter Care Teams Defective Cigarette Slitter Relationship Specialty Start Date End Date Johnathon Braga DO [address] [place] [address] PCP - General FAMILY PRACTICE 10/31/20 documented as of this encounter
--- OUTSIDE RECORDS SUMMARY | 2024-09-03 07:53 | XMS_ITS | Encounter Summary ---
Author Organization [facility] Address [address] [place] [address]. [place] [address] [place] [address] Care Team Providers Care Marine Biologist Name Role Phone Johnathon Braga Primary Care Provider + Reason for Visit * Reason Comments EMG Testing Left upper/lower ext remities * Procedure (Routine) - Closed Specialty Diagnoses / Procedures Referred By Contac t Referred To Contact NEUROLOGY Diagnoses Neuropathy Procedures EMG Giuseppe Da Silva MD Phone: tel: fax: [facility] 3 [facility], [address] [place] [address] Phone: tel: Referral ID Status Reason Start Date Expiration Date V isits Requested Visits Authorized [id number] Closed Office Procedure 06/20/2022 06/20/2023 1 1 Encounter Details Date Type Department Care Team (Latest Contact Info) Description 08/27/2022 10:00 AM DIRECTOR CLINICAL DATA Office Visit [facility] 3 [facility], [address] [place] [address] Giuseppe Da Silva MD [address] [place] [address] Sean Cardenas MD 3 [place] [address] EMG Testing (Left upper/lower extremities) Social History Tobacco Use Types Packs/Day Years [...] file Legal Sex Male 11:26 AM DIRECTOR CLINICAL DATA Gender Identity Not on file Sexual Orientation Not on file COVID-19 Exposure Response Date Recorded In the last 10 days, have yo u been in contact with someone who was confirmed or suspected to have Coronavirus/COVID-19? No / Unsure 08/27/2022 9:51 AM DIRECTOR CLINICAL DATA documented as of this encounter Last Filed Vital Signs Vital Sign Reading Time Taken Comments Blood Pressure 132/78 08/27/2022 9:58 AM DIRECTOR CLINICAL DATA Pulse 74 08/27/2022 9:58 AM DIRECTOR CLINICAL DATA Temperature 36.9 ??C (98.4 ??F) 08/27/2022 9:58 AM CS T Respiratory Rate - - Oxygen Saturation 94% 08/27/2022 9:58 AM DIRECTOR CLINICAL DATA Inhaled Oxygen Concentration - - Weight 72.6 kg (160 lb) 08/27/2022 9:58 AM DIRECTOR CLINICAL DATA Height 180.3 cm (5' 11 ) 08/27/2022 9:58 AM DIRECTOR CLINICAL DATA Body Mass Index 22.32 08/27/2022 9:58 AM DIRECTOR CLINICAL DATA documented in this encounter Progress Notes * Sean Cardenas MD - 08/27/2022 10:00 AM CST emg CTOR CLINICAL DATA * Giuseppe Da Silva MD - 08/27/2022 10:00 AM CST Can you please let them know that their EMG/NCS shows that he has peripheral neuropathy in the legs. CTOR CLINICAL DATA documented in this encounter Procedure Notes * Sean Cardenas MD - 08/27/2022 10:00 AM CSTAssociated Order(s): EMG For sensory nerve conduction studies, the amplitude is measured [id number], the latency reported is the distal peak latency, and the conduction velocity, if measured, is determined from onset latencies and is over the forearm. For motor nerve conduction studies, the amplitude is measured [id number], the latency reported is the distal onset latency, the conduction velocity is calculated over the forearm, and the F wave latency is the minimum latency. Unless otherwise noted, the hand temperature was monitored continuously and remained between 32??C and 36??C during the performance of the NCSs. The study was performed with a concentric needle electrode. Fibrillation and fasciculation activityis graded from none (0) to continuous (4+). The configuration and recruitment pattern of motor unitaction potentials under voluntary control, if not normal, are described below. Abbreviations: NCS= nerve conduction study SNAP= sensory nerve action potential CMAP= compound muscle action potential MUP= motor unit potential EMG= electromyogram F IBS= fibrillations PS W's= positive sharp waves Summary of findings Left median motor NCS is normal Left ulnar motor NCS is normal Left peroneal motor NCS is normal Left tibial motor NCS shows small CMAP amplitude Left median and ulnar sensory NCS is absent Left radial sensory NCS is absent Left sural sensory NCS is absent Left superficial peroneal sensory NCS is absent Left median and ulnar orthodromic mixed NCS are absent Needle EMG of the above muscles of the left lower limb shows chronic neurogenic motor unit potential in peroneal tertius conclusion 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 There is no evidenceof a superimposed lumbosacral radiculopathy. CTOR CLINICAL DATA documented in this encounter Plan of Treatment Upcoming Encounters Date Type Department Care Team (Late st Contact Info) Description 09/10/2024 11:30 AM DIRECTOR CLINICAL DATA Appointment [facility] [address] [place] [address] Zay Juá[place] [address] [facility] [address] [place] [address] 10/25/2024 9:20 AM DIRECTOR CLINICAL DATA Office Visit [facility] Family & Internal Medicine [address] [address] Johnathon Braga DO [address] [place] [address] 11/21/2024 9:40 AM CDT Office Visit [facility] Multispecialty Care - [facility] 3 [facility], [address] [place] [address] Shelli Gonzalez MD 3 [place] [address] Scheduled Orders Name Type Priority Associated Diagnoses Orde r Schedule NERVE CONDUCTION, 13+ STUDIES Procedures Routine Neuropathy Ordered: 08/27/2022 COMPLETE FIVE OR MORE MUSCLES STUDIED INNERVATED Procedures Routine Neuropathy Ordered: 08/27/2022 documented as of this encounter Procedures Procedure Name Priority Date/Time Associated Diagnosis Comments EMG Routine 08/28/2022 12:27 PM DIRECTOR CLINICAL DATA Neuropathy documented in this encounter Results * EMG (08/28/2022 12:27 PM DIRECTOR CLINICAL DATA) 08/28/2022 12:2 7 PM DIRECTOR CLINICAL DATA us Giuseppe Da Silva MD NEUROLOGY ORDERABLES Final Result [facility] documented in this encounter Visit Diagnoses Diagnosis Neuropathy Mononeuritis of unspecified site documented in this encounter Additional Health Concerns Assessment Noted Time PHQ-9 Depression Total Score: 5 10/31/19 2:44 PM DIRECTOR CLINICAL DATA documented as of this encounter Care Teams Marine Biologist Relationship Specialty Start Date End Date Johnathon Braga DO [address] [place] [address] PCP - General FAMILY PRACTICE 10/31/20 documented as of this encounter
--- OUTSIDE RECORDS SUMMARY | 2024-09-03 07:53 | XMS_ITS | Encounter Summary ---
Author Organization [facility] Address [address] [place] [address]. [place] [address] [place] [address] Care Team Providers Care Funeral Home Assistant Name Role Phone Johnathon Braga Primary Care Provider + Encounter Details Date Type Department Care Team (Latest Contact Info) Description 06/18/2021 Scan [facility] INFO SRVCS Scanned, Documents Social History Tobacco Use Types Packs/Day Years [...] on file Legal Sex Male 11:26 AM TAPER OPERATOR Gender Identity Not on file Sexual Orientation Not on file documented as of this encounter Plan of Treatment Upcoming Encounters Date Type Department Care Team (Late st Contact Info) Description 09/10/2024 11:30 AM TAPER OPERATOR Appointment [facility] [address] [place] [address] Zay Juá[place] [address] [address] 10/25/2024 9:20 AM TAPER OPERATOR Office Visit [facility] Family & Internal Medicine - [place] [address] [place] [address] Johnathon Braga DO [address] [place] [address] 11/21/2024 9:40 AM CDT Office Visit [facility] Multispecialty Care - [facility] [address] [facility], [address] [place] [address] Shelli Gonzalez MD [address] [place] [address] documented as of this encounter Visit Diagnoses Not on filedocumented in this encounter Additional Health Concerns Assessment Noted Time PHQ-9 Depression Total Score: 5 10/31/19 21 2:44 PM TAPER OPERATOR documented as of this encounter Care Teams Funeral Home Assistant Relationship Specialty Start Date End Date Johnathon Braga DO [address] [place] [address] PCP - General FAMILY PRACTICE 10/31/20 documented as of this encounter
--- OUTSIDE RECORDS SUMMARY | 2024-09-03 07:53 | XMS_ITS | Encounter Summary ---
Author Organization [facility] Address [address] [place] [address]. [place], [place] [address] [place] [address] Care Team Providers Care Dedicated Intermodal Truck Driver Name Role Phone Johnathon Braga DO Primary Care Provider + Reason for Visit * Reason Onset Date Comments Dizziness 12/03/2020 Encounter Details Date Type Department Care Team (Late st Contact Info) Description 12/03/2020 Telephone [facility] Medical Group Family & Internal Medicine [facility] [address] [place] [address] Johnathon Braga DO [address] [place], [place] [id number] Dizziness Social History Tobacco Use Types Packs/Day Years [...] on file Legal Sex Male 11:26 AM CHIP MIXING MACHINE OPERATOR Gender Identity Not on file Sexual Orientation Not on file COVID-19 Exposure Response Date Recorded In the last month, have you been in contact with someone who was confirmed or suspected to have Coronavirus / COVID-19? No / Unsure 12/03/2020 12:47 PM CDT documented as of this encounter Progress Notes * Eufemia Roque RN - 12/03/2020 11:51 AM CDT Patient and his call in on speaker phone. Patient stated he is feel very dizzy and light-headed. Patient did say he had a headache. Patient is unable to stand with out falling or feeling nausated. Blood pressure is 112/68, with a heart rate of 58 via home blood pressure monitor. Patient deniesany blurred vision, SOB, or chest pain. No appointments available for today 12/03/20. With patient'scurrent S/S and unable to ambulate appropriately this nurse advised to go to ED for further evaluation. Advised patient to call back to make follow up. Opportunity given for all questions to be answered, no further needs voiced at this time. LL-12/03/20 documented in this encounter Plan of Treatment Upcoming Encounters Date Type Department Care Team (Late st Contact Info) Description 09/10/2024 11:30 AM CHIP MIXING MACHINE OPERATOR Appointment [facility] [address] [place] [id number] Zay Juá[place] [address] [facility] [address] [place] [address] 10/25/2024 9:20 AM CHIP MIXING MACHINE OPERATOR Office Visit [facility] Medical Group Family & Internal Medicine - [address] [address] Johnathon Braga DO [address] [place] [address] 11/21/2024 9:40 AM CDT Office Visit [facility] Medical [facility] Multispecialty Care - [address], [address] [place] [phone] Shelli Gonzalez MD 3 [place] [address] documented as of this encounter Visit Diagnoses Not on filedocumented in this encounter Additional Health Concerns Assessment Noted Time PHQ-9 Depression Total Score: 5 10/31/19 21 2:44 PM CHIP MIXING MACHINE OPERATOR documented as of this encounter Care Teams Dedicated Intermodal Truck Driver Relationship Specialty Start Date End Date Johnathon Braga DO [address] [place] [address] PCP - General FAMILY PRACTICE 10/31/20 documented as of this encounter
--- OUTSIDE RECORDS SUMMARY | 2024-09-03 07:53 | XMS_ITS | Encounter Summary ---
Author Organization [facility] Address [address] [place] [address]. [place], [place] [address] [place] [address] Care Team Providers Care Qa Architect Name Role Phone Johnathon Braga Primary Care Provider + Encounter Details Date Type Department Care Team (Latest Contact Info) Description 06/20/2022 Scan [facility] INFO SRVCS Scanned, Doc [...] on file Legal Sex Male 11:26 AM INSTRUCTOR BALLROOM DANCING Gender Identity Not on file Sexual Orientation Not on file COVID-19 Exposure Response Date Recorded In the last 10 days, have yo u been in contact with someone who was confirmed or suspected to have Coronavirus/COVID-19? No / Unsure 06/21/2022 10:49 AM CDT documented as of this encounter Plan of Treatment Upcoming Encounters Date Type Department Care Team (Late st Contact Info) Description 09/10/2024 11:30 AM INSTRUCTOR BALLROOM DANCING Appointment [facility] [address] [place] [address] Zay Juá[place] [address] [facility] [address] [place] [address] 10/25/2024 9:20 AM INSTRUCTOR BALLROOM DANCING Office Visit [facility] Family & Internal Medicine - [place] [address] [place] [address] Johnathon Braga DO [address] [place] [address] 11/21/2024 9:40 AM CDT Office Visit [facility] Multispecialty Care - [facility] 3 [facility], [address] [place] [address] Shelli Gonzalez MD 3 [place] [address] documented as of this encounter Visit Diagnoses Not on filedocumented in this encounter Additional Health Concerns Assessment Noted Time PHQ-9 Depression Total Score: 5 10/31/19 21 2:44 PM INSTRUCTOR BALLROOM DANCING documented as of this encounter Care Teams Qa Architect Relationship Specialty Start Date End Date Johnathon Braga DO [address] [place] [address] PCP - General FAMILY PRACTICE 10/31/20 documented as of this encounter
--- OUTSIDE RECORDS SUMMARY | 2024-09-03 07:53 | XMS_ITS | Encounter Summary ---
Author Organization [facility] Address [address] [place] [address]. [place], [place] [address] [place] [address] Care Team Providers Care Tunnel Man Name Role Phone Johnathon Braga Primary Care Provider + Reason for Visit * Reason Onset Date Comments Results 07/28/2022 Encounter Details Date Type Department Care Team (Late st Contact Info) Description 07/28/2022 Telephone [facility] Medical Group Multispecialty Care - [facility] [address] [facility], [address] [place] [address] Giuseppe Da Silva MD [address] [place] [address] Results Social History Tobacco Use Types Packs/Day [...] on file Legal Sex Male 11:26 AM VASCULAR SONOGRAPHER Gender Identity Not on file Sexual Orientation Not on file documented as of this encounter Progress Notes * Giuseppe Da Silva MD - 07/29/2022 7:20 AM CST Ok, we don't need to see him do any specific activity during the test so that information gathered was ok. If he was very active then we would not be able to read the EEG. ULAR SONOGRAPHER * Kate Julien MA - 07/28/2022 3:42 PM CST Returned call to Nayana, who informed that these results were what she was expecting as nothing patient was able to do during test allowed him to do a normal day of activity. All the test allowed was for him to sit in a chair, sleep, watch tv and walk around for about 5 minutes. Please advise? ULAR SONOGRAPHER * Kemi Poon - 07/28/2022 2:22 PM CST Patient's returned your call. Please give her a call back. ULAR SONOGRAPHER * Kate Julien MA - 07/28/2022 12:42 PM CST Called patient, no answer, left detailed message informing patient of EEG results. Asked patient toreturn call with any questions. ULAR SONOGRAPHER * Giuseppe Da Silva MD - 07/28/2022 8:46 AM CST Can you please let them know that his ambulatory EEG did not show any seizures. It showed slowed brainwaves which may be due to his history of a brain injury. ULAR SONOGRAPHER documented in this encounter Plan of Treatment Upcoming Encounters Date Type Department Care Team (Late st Contact Info) Description 09/10/2024 11:30 AM VASCULAR SONOGRAPHER Appointment [facility] [address] [place] [address] Zay Juá[place] [address] [facility] [address] [place] [address] 10/25/2024 9:20 AM VASCULAR SONOGRAPHER Office Visit [facility] Medical [facility] Family & Internal Medicine - [address] [address] Johnathon Braga DO [address] [place] [address] 11/21/2024 9:40 AM CDT Office Visit [facility] Multispecialty Care - [address], [address] [place] [address] Shelli Gonzalez MD 3 [place] [address] documented as of this encounter Visit Diagnoses Not on filedocumented in this encounter Additional Health Concerns Assessment Noted Time PHQ-9 Depression Total Score: 5 10/31/19 21 2:44 PM VASCULAR SONOGRAPHER documented as of this encounter Care Teams Tunnel Man Relationship Specialty Start Date End Date Johnathon Braga DO [address] [place] [address] PCP - General FAMILY PRACTICE 10/31/20 documented as of this encounter
--- OUTSIDE RECORDS SUMMARY | 2024-09-03 07:53 | XMS_ITS | Encounter Summary ---
Author Organization [facility] Address [address] [place] [address]. [place], [place] [address] [place] [address] Care Team Providers Care Enforcement Manager Name Role Phone Johnathon Braga Primary Care Provider + Encounter Details Date Type Department Care Team (Latest Contact Info) Description 12/04/2020 Travel Social History Tobacco Use Types Packs/Day [...] on file Legal Sex Male 11:26 AM FABRIC COATING SUPERVISOR Gender Identity Not on file Sexual Orientation Not on file COVID-19 Exposure Response Date Recorded In the last month, have you been in contact with someone who was confirmed or suspected to have Coronavirus / COVID-19? No / Unsure 12/04/2020 2:38 PM CDT documented as of this encounter Plan of Treatment Upcoming Encounters Date Type Department Care Team (Late st Contact Info) Description 09/10/2024 11:30 AM FABRIC COATING SUPERVISOR Appointment [facility] [address] [place] [address] Zay Juárez [place] [address] [address] 10/25/2024 9:20 AM FABRIC COATING SUPERVISOR Office Visit [facility] Family & Internal Medicine - [place] [address] [place] [address] Johnathon Braga DO [address] [place] [address] 11/21/2024 9:40 AM CDT Office Visit [facility] Multispecialty Care - [facility] 3 [facility], [address] [place] [address] Shelli Gonzalez MD 3 [place] [address] documented as of this encounter Visit Diagnoses Not on filedocumented in this encounter Additional Health Concerns Assessment Noted Time PHQ-9 Depression Total Score: 5 10/31/19 21 2:44 PM FABRIC COATING SUPERVISOR documented as of this encounter Care Teams Enforcement Manager Relationship Specialty Start Date End Date Johnathon Braga DO [address] [place] [address] PCP - General FAMILY PRACTICE 10/31/20 documented as of this encounter
--- OUTSIDE RECORDS SUMMARY | 2024-09-03 07:53 | XMS_ITS | Encounter Summary ---
Author Organization [facility] Address [address] [place] [address]. [place], [place] [address] [place] [address] Care Team Providers Care Automotive Painter Helper Name Role Phone Johnathon Braga Primary Care Provider + Reason for Visit * Reason Comments EEG (SCAN) Encounter Details Date Type Department Care Team (Latest Contact Info) Description 07/12/2022 Scan HEALTH INFO SRVCS Scanned, Doc Med Group EEG (SCAN) Social History Tobacco Use Types Packs/Day [...] on file Legal Sex Male 11:26 AM TROLLEY CLEANER Gender Identity Not on file Sexual Orientation [...] st Contact Info) Description 09/10/2024 11:30 AM TROLLEY CLEANER Appointment [facility] [address] [place] [address] Zay Juá[place] [address] [facility] [address] [place] [address] 10/25/2024 9:20 AM TROLLEY CLEANER Office Visit [facility] Family & Internal Medicine - [place] [address] [place] [address] [place] [address] [place] [address] 11/21/2024 9:40 AM CDT Office Visit [facility] Multispecialty Care - [facility] [address] [facility], [address] [place] [address] Shelli Gonzalez MD 3 [place] [address] documented as of this encounter Procedures Procedure Name Priority Date/Time Associated Diagnosis Comments EEG GENERIC (SCAN ORDER) 07/12/2022 documented in this encounter Results * EEG GENERIC (07/12/2022) 07/12/2022 us Doc Med Group Scanned SCANNING Final Resu lt documented in this encounter Visit Diagnoses Not on filedocumented in this encounter Additional Health Concerns Assessment Noted Time PHQ-9 Depression Total Score: 5 10/31/19 21 2:44 PM TROLLEY CLEANER documented as of this encounter Care Teams Automotive Painter Helper Relationship Specialty Start Date End Date Johnathon Braga DO [address] [place] [address] PCP - General FAMILY PRACTICE 10/31/20 documented as of this encounter
--- OUTSIDE RECORDS SUMMARY | 2024-09-03 07:53 | XMS_ITS | Encounter Summary ---
Author Organization [facility] Address [address] [place] [address]. [place], [place] [address] [place] [address] Care Team Providers Care Enterprise Systems Administrator Name Role Phone Johnathon Braga Primary Care Provider + Encounter Details Date Type Department Care Team (Latest Contact Info) Description 01/26/2022 Travel Social History Tobacco Use Types Packs/Day [...] on file Legal Sex Male 11:26 AM SLURRY TANK OPERATOR Gender Identity Not on file Sexual Orientation Not on file COVID-19 Exposure Response Date Recorded In the last 10 days, have yo u been in contact with someone who was confirmed or suspected to have Coronavirus/COVID-19? No / Unsure 01/26/2022 5:50 PM CDT documented as of this encounter Plan of Treatment Upcoming Encounters Date Type Department Care Team (Late st Contact Info) Description 09/10/2024 11:30 AM SLURRY TANK OPERATOR Appointment [facility] [address] [place] [address] Zay Juárez [place] [address] [address] 10/25/2024 9:20 AM SLURRY TANK OPERATOR Office Visit [facility] Family & Internal Medicine - [place] [address] [place] [address] Johnathon Braga DO [address] [place] [address] 11/21/2024 9:40 AM CDT Office Visit [facility] Multispecialty Care - Health system 3 [facility], [address] [place] [address] Shelli Gonzalez MD 3 [place] [address] documented as of this encounter Visit Diagnoses Not on filedocumented in this encounter Additional Health Concerns Assessment Noted Time PHQ-9 Depression Total Score: 5 10/31/19 2:44 PM SLURRY TANK OPERATOR documented as of this encounter Care Teams Enterprise Systems Administrator Relationship Specialty Start Date End Date Johnathon Braga DO [address] [place] [address] PCP - General FAMILY PRACTICE 10/31/20 documented as of this encounter
--- OUTSIDE RECORDS SUMMARY | 2024-09-03 07:53 | XMS_ITS | Encounter Summary ---
Author Organization [facility] Address [address] [place] [address]. [place], [place] [address] [place] [address] Care Team Providers Care Concrete Form Setter And Finisher Name Role Phone Johnathon Braga Primary Care Provider + Reason for Visit * Reason Comments Lab (SCAN) Encounter Details Date Type Department Care Team (Latest Contact Info) Description 08/03/2020 Scan [facility] HEALTH INFO SRVCS Scanned, Documents Lab (SCAN) Social History Tobacco Use Types Packs/Day Years Used Date Smoking Tobacco: Never Assessed AUDIT-C Answer Date Recorded Q1: How often [...] on file Legal Sex Male 11:26 AM METAL CUT OFF SAW OPERATOR Gender Identity Not on file Sexual Orientation Not on file COVID-19 Exposure Response Date Recorded In the last month, have you been in contact with someone who was confirmed or suspected to have Coronavirus / COVID-19? No / Unsure 10/31/2020 2:18 PM METAL CUT OFF SAW OPERATOR documented as of this encounter Plan of Treatment Upcoming Encounters Date Type Department Care Team (Late st Contact Info) Description 09/10/2024 11:30 AM METAL CUT OFF SAW OPERATOR Appointment [facility] [address] [place] [address] Zay Juárez [place] [address] [address] 10/25/2024 9:20 AM METAL CUT OFF SAW OPERATOR Office Visit [facility] Family & Internal Medicine - [place] [address] [place] [address] Johnathon Braga DO [address] [place] [address] 11/21/2024 9:40 AM CDT Office Visit [facility] Multispecialty Care - [facility] 3 [facility], [address] [place] [address] Shelli Gonzalez MD 3 [place] [address] documented as of this encounter Procedures Procedure Name Priority Date/Time Associated Diagnosis Comments OUTSIDE LAB (SCAN ORDER) 08/03/2020 documented in this encounter Results * OUTSIDE LAB (SCAN) (08/03/2020) 08/03/2020 Narrative 08/03/2020 Ordered by an unspecified provider. us Documents Scanned SCANNING Final Result documented in this encounter Visit Diagnoses Not on filedocumented in this encounter Care Teams Concrete Form Setter And Finisher Relationship Specialty Start Date End Date Johnathon Braga DO [address] [place] [address] PCP - General FAMILY PRACTICE 10/31/20 documented as of this encounter
--- OUTSIDE RECORDS SUMMARY | 2024-09-03 07:53 | XMS_ITS | Encounter Summary ---
Author Organization [facility] Address [address] [place] [address]. [place], [place] [address] [place] [address] Care Team Providers Care Receptionist Scheduler Name Role Phone Johnathon Braga DO Primary Care Provider + Reason for Visit * Reason Onset Date Comments Referral 12/04/2020 Encounter Details Date Type Department Care Team (Late st Contact Info) Description 12/04/2020 Telephone [facility] Medical Group Family & Internal Medicine [facility] [address] [place] [address] Johnathon Braga DO [address] [place], [place] [phone] Referral Social History Tobacco Use Types Packs/Day Years [...] on file Legal Sex Male 11:26 AM DRONE PILOT Gender Identity Not on file Sexual Orientation Not on file COVID-19 Exposure Response Date Recorded In the last month, have you been in contact with someone who was confirmed or suspected to have Coronavirus / COVID-19? No / Unsure 12/04/2020 2:38 PM CDT documented as of this encounter Progress Notes * Johnathon Braga DO - 12/05/2020 10:29 AM CDT Noted, thank you. * Eufemia Roque RN - 12/05/2020 9:36 AM CDT Called and spoke with patients (Nayana). Explained that patient needs to make a follow up with Dr. Chow's office. Informed Nayana that patient will not be able to refill medication unless this appointment is made. Also, explained that Dr. Gallagher's office called and will be reaching out to patient in the next few days to schedule an appointment. Explained if they do not hear back from these providers to please call this office back. The verbalized understanding. Opportunity given for all questions to be answered, no further needs voiced at this time. LL-12/05/20 * Johnathon Braga DO - 12/05/2020 9:17 AM CDT Please let pt know of this information; needs to f/u with them accordingly. * Eufemia Roque RN - 12/05/2020 9:03 AM CDT Rosalba from 's office called back. She stated they have not seen him in more then a month. She also, stated the he has not filled 2 out of his 4 medications. Previously, patient's would come up to office every 6 weeks to get samples of Namenda. Medication was to expensive for patient. Rosalba said she will reach out to patient to schedule an appointment. She will follow up with office if they are unable to contact patient. LL-12/05/20 * Eufemia Roque RN - 12/05/2020 8:44 AM CDT Spoke with Maddy at Dr. Chow's office at [phone]. She stated that a VV or face to face appointment is needed. Provider will not refill medication if patient is not seen. Call out to Dr. Last's office at [phone]. No answer; was able to leave a message. LL-12/05/20 * Johnathon Braga DO - 12/04/2020 3:53 PM CDT Can we reach out to pt's neurologist's office? According to pt's , she was told he doesn't needto be seen by Dr. Chow at this time. However, per Care Everywhere documentation, pt is actually overdue to be seen (recommended to RTC six months from last appointment in December 2019). Can we also reach out to pt's psychiatrist, Dr. Last? He practices in [place]. They haven't been able to get a hold of his office, and pt is overdue to see him as well. If new referrals are needed for either, [place] to place. documented in this encounter Plan of Treatment Upcoming Encounters Date Type Department Care Team (Late st Contact Info) Description 09/10/2024 11:30 AM DRONE PILOT Appointment [facility] [address] [place] [address] Zay Juárez [place] [address] [address] 10/25/2024 9:20 AM DRONE PILOT Office Visit [facility] Medical Group Family & Internal Medicine [address] [address] Johnathon Braga DO [address] [place] [address] 11/21/2024 9:40 AM CDT Office Visit [facility] Medical Group Multispecialty Care - [address], [address] [place] [address] Shelli Gonzalez MD 3 [place] [address] documented as of this encounter Visit Diagnoses Not on filedocumented in this encounter Additional Health Concerns Assessment Noted Time PHQ-9 Depression Total Score: 5 10/31/19 21 2:44 PM DRONE PILOT documented as of this encounter Care Teams Receptionist Scheduler Relationship Specialty Start Date End Date Johnathon Braga DO [address] [place] [address] PCP - General FAMILY PRACTICE 10/31/20 documented as of this encounter
--- OUTSIDE RECORDS SUMMARY | 2024-09-03 07:53 | XMS_ITS | Encounter Summary ---
Author Organization [facility] Address [address] [place] [address]. [place], [place] [address] [place] [address] Care Team Providers Care Pantry Steward/Stewardess Name Role Phone Johnathon Braga DO Primary Care Provider + Reason for Visit * Reason Onset Date Comments Results 02/11/2022 Encounter Details Date Type Department Care Team (Late st Contact Info) Description 02/11/2022 Telephone [facility] Family & Internal Medicine [facility] [address] [place] [address] Johnathon Braga DO [address] [place], [place] [id number] Results Social History Tobacco Use Types Packs/Day [...] on file Legal Sex Male 11:26 AM SHOWCASE MAKER Gender Identity Not on file Sexual Orientation Not on file COVID-19 Exposure Response Date Recorded In the last 10 days, have yo u been in contact with someone who was confirmed or suspected to have Coronavirus/COVID-19? No / Unsure 02/06/2022 10:01 AM CDT documented as of this encounter Progress Notes * Rosalba Perez MA - 02/11/2022 10:22 AM CDT a1c added via [facility]. Patient notified and v/u * Rosalba Perez MA - 02/11/2022 10:22 AM CDT ----- Message from Johnathon Braga DO sent at 02/09/2022 8:40 PM CDT ----- Glucose is mildly elevated; can we add on an A1c? Other labs are stable; recheck in 1 year. documented in this encounter Plan of Treatment Upcoming Encounters Date Type Department Care Team (Late st Contact Info) Description 09/10/2024 11:30 AM [address] [facility] [address] [place], [place] [id number] Zay [place] [address] [facility] [address] [place] [address] 10/25/2024 9:20 AM SHOWCASE MAKER Office Visit [facility] Medical [facility] - [place] [address] [place] [address] Johnathon Braga DO [address] [place] [address] 11/21/2024 9:40 AM CDT Office Visit [facility] Multispecialty Care - [address], [address] [place] [phone] Shelli Gonzalez MD [address] [place] [address] documented as of this encounter Visit Diagnoses Not on filedocumented in this encounter Additional Health Concerns Assessment Noted Time PHQ-9 Depression Total Score: 5 10/31/19 21 2:44 PM SHOWCASE MAKER documented as of this encounter Care Teams Pantry Steward/Stewardess Relationship Specialty Start Date End Date Johnathon Braga DO [address] [place] [address] PCP - General FAMILY PRACTICE 10/31/20 documented as of this encounter
--- OUTSIDE RECORDS SUMMARY | 2024-09-03 07:53 | XMS_ITS | Encounter Summary ---
Author Organization [facility] Address [address] [place] [address]. [place], [place] [address] [place] [address] Care Team Providers Care Retail Presentation Specialist Name Role Phone Johnathon Braga Primary Care Provider + Encounter Details Date Type Department Care Team (Late st Contact Info) Description 10/31/2020 Orders Only [facility] Family & Internal Medicine [address] [phone] Rosalba Perez MA Social History Tobacco Use Types Packs/Day Years [...] on file Legal Sex Male 11:26 AM CUSTOMER SUPPORT COORDINATOR Gender Identity Not on file Sexual Orientation Not on file COVID-19 Exposure Response Date Recorded In the last month, have you been in contact with someone who was confirmed or suspected to have Coronavirus / COVID-19? No / Unsure 10/31/2020 2:18 PM CUSTOMER SUPPORT COORDINATOR documented as of this encounter Plan of Treatment Upcoming Encounters Date Type Department Care Team (Late st Contact Info) Description 09/10/2024 11:30 AM CUSTOMER SUPPORT COORDINATOR Appointment [facility] [address] [place] [address] Zay Juá[place] [address] [facility] [address] [place] [address] 10/25/2024 9:20 AM CUSTOMER SUPPORT COORDINATOR Office Visit [facility] Family & Internal Medicine - [address] [address] Johnathon Braga DO [address] [place] [address] 11/21/2024 9:40 AM CDT Office Visit [facility] Multispecialty Care - [address], [address] [place] [phone] Shelli Gonzalez MD [address] [place] [address] documented as of this encounter Visit Diagnoses Not on filedocumented in this encounter Additional Health Concerns Assessment Noted Time PHQ-9 Depression Total Score: 5 10/31/19 21 2:44 PM CUSTOMER SUPPORT COORDINATOR documented as of this encounter Care Teams Retail Presentation Specialist Relationship Specialty Start Date End Date Johnathon Braga DO [address] [place] [address] PCP - General FAMILY PRACTICE 10/31/20 documented as of this encounter
--- OUTSIDE RECORDS SUMMARY | 2024-09-03 07:53 | XMS_ITS | Encounter Summary ---
Author Organization [facility] Address [address] [place] [address]. [place], [place] [address] [place] [address] Care Team Providers Care Varnisher Name Role Phone Johnathon Braga Primary Care Provider + Reason for Visit * Reason Comments Lab (SCAN) Encounter Details Date Type Department Care Team (Latest Contact Info) Description 10/09/2020 Scan [facility] Scanned, Documents [...] on file Legal Sex Male 11:26 AM SEC REPORTING CONSULTANT Gender Identity Not on file Sexual Orientation Not on file COVID-19 Exposure Response Date Recorded In the last month, have you been in contact with someone who was confirmed or suspected to have Coronavirus / COVID-19? No / Unsure 10/31/2020 2:18 PM SEC REPORTING CONSULTANT documented as of this encounter Plan of Treatment Upcoming Encounters Date Type Department Care Team (Late st Contact Info) Description 09/10/2024 11:30 AM SEC REPORTING CONSULTANT Appointment [facility] [address] [place] [address] Zay Juárez [place] [address] [address] 10/25/2024 9:20 AM SEC REPORTING CONSULTANT Office Visit [facility] Family & Internal Medicine - [place] [address] [place] [address] Johnathon Braga DO [address] [place] [address] 11/21/2024 9:40 AM CDT Office Visit [facility] Multispecialty Care - [facility] [address] [facility], [address] [place] [phone] Shelli Gonzalez MD [address] [place] [address] documented as of this encounter Procedures Procedure Name Priority Date/Time Associated Diagnosis Comments OUTSIDE LAB (SCAN ORDER) 10/09/2020 documented in this encounter Results * OUTSIDE LAB (SCAN) (10/09/2020) 10/09/2020 Narrative 10/09/2020 Ordered by an unspecified provider. us Documents Scanned SCANNING Final Result documented in this encounter Visit Diagnoses Not on filedocumented in this encounter Care Teams Varnisher Relationship Specialty Start Date End Date Johnathon Braga DO [address] [place] [address] PCP - General FAMILY PRACTICE 10/31/20 documented as of this encounter
--- OUTSIDE RECORDS SUMMARY | 2024-09-03 07:53 | XMS_ITS | Encounter Summary ---
Author Organization [facility] Address [address] [place] [address]. [place], [place] [address] [place] [address] Care Team Providers Care Core Placer Name Role Phone Johnathon Braga Primary Care Provider + Reason for Visit * Reason Comments Lab (SCAN) Encounter Details Date Type Department Care Team (Latest Contact Info) Description 09/19/2020 Scan [facility] Scanned, Documents [...] on file Legal Sex Male 11:26 AM COMPUTER NETWORKING INSTRUCTOR Gender Identity Not on file Sexual Orientation Not on file COVID-19 Exposure Response Date Recorded In the last month, have you been in contact with someone who was confirmed or suspected to have Coronavirus / COVID-19? No / Unsure 10/31/2020 2:18 PM COMPUTER NETWORKING INSTRUCTOR documented as of this encounter Plan of Treatment Upcoming Encounters Date Type Department Care Team (Late st Contact Info) Description 09/10/2024 11:30 AM COMPUTER NETWORKING INSTRUCTOR Appointment [facility] [address] [place] [address] Zay Juárez [place] [address] [address] 10/25/2024 9:20 AM COMPUTER NETWORKING INSTRUCTOR Office Visit [facility] Family & Internal Medicine - [place] [address] [place] [address] Johnathon Braga DO [address] [place] [address] 11/21/2024 9:40 AM CDT Office Visit [facility] Multispecialty Care - [facility] [address] [facility], [address] [place] [phone] Shelli Gonzalez MD [address] [place] [address] documented as of this encounter Procedures Procedure Name Priority Date/Time Associated Diagnosis Comments OUTSIDE LAB (SCAN ORDER) Routine 09/19/2020 documented in this encounter Results * OUTSIDE LAB (SCAN) (09/19/2020) HGB A1C 5.36 % HS ONBASE 09/19/2020 us Documents Scanned SCANNING Final Result [facility] ONBASE documented in this encounter Visit Diagnoses Not on filedocumented in this encounter Care Teams Core Placer Relationship Specialty Start Date End Date Johnathon Braga DO [address] [place] [address] PCP - General FAMILY PRACTICE 10/31/20 documented as of this encounter
--- OUTSIDE RECORDS SUMMARY | 2024-09-03 07:53 | XMS_ITS | Encounter Summary ---
Author Organization [facility] Address [address] [place] [address]. [place], [place] [address] [place] [address] Care Team Providers Care Asphalt Spreader Name Role Phone Johnathon Braga Timbo SHELTON Primary Care Provider + Reason for Visit * Reason Onset Date Comments Refill Request 11/14/2022 Encounter Details Date Type Department Care Team (Late st Contact Info) Description 11/14/2022 Telephone [facility] Medical Group Multispecialty Care - [facility] [address] [facility], [address] [place] [phone] Nikki Da Silva MD [address] [place] [address] Refill Request (/) Social History Tobacco Use Types Packs/Day Years [...] on file Legal Sex Male 11:26 AM LACE WEAVER Gender Identity Not on file Sexual Orientation Not on file documented as of this encounter Progress Notes * Nikki Da Silva MD - 11/14/2022 11:54 AM CST Ok, I sent in refills. WEAVER * Nikki Da Silva MD - 11/14/2022 11:53 AM CSTAddended by: NIKKI MURILLO on: 11/14/2022 11:53 AM Modules accepted: Orders WEAVER * Elo Urias - 11/14/2022 9:51 AM CST Pt spouse Nayana called requesting a refill of donepezil 10mg be sent [place] [facility] [place]. She states that the Pt old neurologist prescribed him the medication. Please send prescription no call back needed WEAVER documented in this encounter Plan of Treatment Upcoming Encounters Date Type Department Care Team (Late st Contact Info) Description 09/10/2024 11:30 AM LACE WEAVER Appointment [facility] [address] [place] [address] Zay [place] [address] [facility] [address] [place] [address] 10/25/2024 9:20 AM LACE WEAVER Office Visit [facility] Medical Group Family & Internal Medicine - [address] [address] Johnathon Braga DO [address] [place] [address] 11/21/2024 9:40 AM CDT Office Visit [facility] Medical [facility] Multispecialty Care - [address], [address] [place] [address] Shelli Gonzalez MD [address] [place] [address] documented as of this encounter Visit Diagnoses Diagnosis Memory loss- Primary documented in this encounter Additional Health Concerns Assessment Noted Time PHQ-9 Depression Total Score: 5 10/31/19 21 2:44 PM LACE WEAVER documented as of this encounter Care Teams Asphalt Spreader Relationship Specialty Start Date End Date Johnathon Braga DO [address] [place] [address] PCP - General FAMILY PRACTICE 10/31/20 documented as of this encounter
--- OUTSIDE RECORDS SUMMARY | 2024-09-03 07:53 | XMS_ITS | Encounter Summary ---
Author Organization [facility] Address [address] [place] [address]. [place], [place] [address] [place] [address] Care Team Providers Care Caseworker Intake Name Role Phone Johnathon Braga DO Primary Care Provider + Reason for Referral * Consultation (Routine) - Closed Specialty Diagnoses / Procedures Referred By Jonah weber Referred To Contact NEUROLOGY Diagnoses Postconcussion syndrome Chronic post-traumatic headache, not intractable Tremor Polyneuropathy Johnathon Braga DO [address] [place] [address] Phone: tel: fax: [facility] - [address], [address] [place] [address] Phone: tel: Referral ID Status Reason Start Date Expiration Date V isits Requested Visits Authorized [id number] Closed Specialty Services 02/06/2022 03/09/2023 99 99 Reason for Visit * Reason Comments Fatigue 6 months Encounter Details Date Type Department Care Team (Late st Contact Info) Description 02/06/2022 10:00 AM CDT Office Visit [facility] Family & Internal Medicine [facility] [address] [place] [address] Johnathon Braga DO [address] [place], [place] [phone] Fatigue (6 months ) Social History Tobacco Use Types Packs/Day [...] on file Legal Sex Male 11:26 AM ESTIMATOR LUMBER Gender Identity Not on file Sexual Orientation Not on file COVID-19 Exposure Response Date Recorded In the last 10 days, have yo u been in contact with someone who was confirmed or suspected to have Coronavirus/COVID-19? No / Unsure 02/06/2022 10:01 AM CDT documented as of this encounter Last Filed Vital Signs Vital Sign Reading Time Taken Comments Blood Pressure 108/54 02/06/2022 10:09 AM CDT Pulse 79 02/06/2022 10:09 AM CDT Temperature 36.9 ??C (98.4 ??F) 02/06/2022 1 0:09 AM CDT Respiratory Rate 16 02/06/2022 10:0 9 AM CDT Oxygen Saturation 96% 02/06/2022 10: 09 AM CDT Inhaled Oxygen Concentration - - Weight 102.8 kg (226 lb 9.6 oz) 022 10:09 AM CDT Height 180.3 cm (5' 11 ) 02/06/2022 10: 09 AM CDT Body Mass Index 31.6 02/06/2022 10:09 AM CDT documented in this encounter Progress Notes * Johnathon Braga DO - 02/06/2022 10:00 AM CDT Images from the original note were not included. GENERAL OFFICE VISIT Encounter Date: 02/06/2022 Chief Complaint: 66-year-old male presents for Fatigue (6 months ) HPI: Patient presents for follow-up on essential hypertension. Patient has had hypertension for multipleyears. Current medications include lisinopril and chlorthalidone; they are unsure if there is amiloride-HCTZ or not. Patient does take his/her blood pressure at home. Ranges are WNL. No side effects noted from medications. Concurrent conditions include Hyperlipidemia. Patient presents for follow-up on HLD. Patient has had HLD for multiple years. Current medications include atorvastatin. Current side effects include none. Patient does need labs drawn today. Pt saw Dr. Chow in September. Pt is still on Lamictal from psych. Pt is on donepezil at this time for memory issues. Pt would like to see a new neurologist for his issues. Pt had a table saw injury in May. He is now seeing an orthopedic doctor for complications of the third digit for this, Dr. Snyder. He did PT for 36 weeks. They believe they had the Tdap done at [facility]. Review of Systems Constitutional: Positive for fatigue. Negative for fever. Respiratory: Negative for shortness of breath. Cardiovascular: Negative for chest pain. Musculoskeletal: Negative for myalgias. Neurological: See HPI Psychiatric/Behavioral: See HPI Patient Active Problem List Diagnosis ??? Benign essential tremor ??? Calculus of kidney ??? Convergence insufficiency ??? Dizziness ??? Fall ??? Fatigue ??? Hypertension ??? Idiopathic gout ??? Postconcussion syndrome ??? Post-traumatic headache, not intractable ??? Syncope ??? Visual disturbance ??? Irritability and anger ??? Hypogonadism in male ??? Lesion of ulnar nerve Past Medical History: Diagnosis Date ??? Dementia (CMS/HCC) ??? Excessive anger ??? Gout ??? Hypertension ??? Kidney stone ??? Loss of hearing ??? Numbness ??? Post-concussional syndrome ??? Tremor Past Surgical History: Procedure Laterality Date ??? ANESTH,CERV SPINE,CORD SURGERY ??? HERNIA REPAIR 1971 ??? LITHOTRIPSY Family History Problem Relation Name Age of Onset ??? Cancer Mother ??? Liver Disease Father ??? No Known Problems Sister ??? Prostate Cancer Brother Social History Socioeconomic History ??? Marital status: Spouse name: Not on file ??? Number of children: Not on file ??? Years of education: Not on file ??? Highest education level: Not on file Occupational History ??? Not on file Tobacco Use ??? Smoking status: Never Smoker ??? Smokeless tobacco: Never Used Substance and Sexual Activity ??? Alcohol use: Never ??? Drug use: Never ??? Sexual activity: Not on file Other [...] on file Immunization History Administered Date(s) Administered ? ? [employer]) COVID-19 AD26 VACCINE 0.5 ML IM SUSP 11/22/2020 ??? Td 05/04/2008 Current Outpatient Medications Medication Sig Dispense Refill ??? ALLOPURINOL 300 MG tablet TAKE ONE TABLET BY MOUTH DAILY 90 tablet 0 ??? atorvastatin 10 MG tablet Take 1 tablet by mouth in the morning. ??? CHLORTHALIDONE 25 MG tablet Take 1 tablet by mouth once daily 90 tablet 0 ??? dextromethorphan-quiNIDine 20-10 MG Cap capsule Take by mouth 2 (two) times a day. ??? donepezil 10 MG Tab ??? fish oil 1000 MG Cap capsule Take by mouth 2 (two) times daily. ??? gabapentin 100 MG capsule Take 1 capsule (100 mg total) by mouth as needed in the morning and 1capsule (100 mg total) as needed at noon and 1 capsule (100 mg total) as needed in the evening. 90 capsule 2 ??? hydrOXYzine 50 MG tablet ??? lamoTRIgine 100 MG tablet ??? meclizine 25 MG tablet Take 1 tablet by mouth daily as needed. ??? modafinil 200 MG tablet ??? Multiple Vitamins-Minerals (CENTRUM ADULTS OR) Take 1 tablet by mouth daily. ??? tamsulosin 0.4 MG Cap Take 1 capsule by mouth in the morning. ??? testosterone cypionate 200 MG/ML injection ??? venlafaxine 75 MG tablet ??? vitamin D3, cholecalciferol, 1000 UNIT Tab tablet Take 2,000 Units by mouth daily. No current facility-administered medications for this visit. Current Outpatient Medications on File Prior to Visit Medication Sig ??? ALLOPURINOL 300 MG tablet TAKE ONE TABLET BY MOUTH DAILY ??? atorvastatin 10 MG tablet Take 1 tablet by mouth in the morning. ??? CHLORTHALIDONE 25 MG tablet Take 1 tablet by mouth once daily ??? dextromethorphan-quiNIDine 20-10 MG Cap capsule Take by mouth 2 (two) times a day. ??? donepezil 10 MG Tab ??? fish oil 1000 MG Cap capsule Take by mouth 2 (two) times daily. ??? hydrOXYzine 50 MG tablet ??? lamoTRIgine 100 MG tablet ??? meclizine 25 MG tablet Take 1 tablet by mouth daily as needed. ??? modafinil 200 MG tablet ??? Multiple Vitamins-Minerals (CENTRUM ADULTS OR) Take 1 tablet by mouth daily. ??? tamsulosin 0.4 MG Cap Take 1 capsule by mouth in the morning. ??? testosterone cypionate 200 MG/ML injection ??? venlafaxine 75 MG tablet ??? vitamin D3, cholecalciferol, 1000 UNIT Tab tablet Take 2,000 Units by mouth daily. No current facility-administered medications on file prior to visit. Allergies Allergen Reactions ??? Carbamazepine Rash and Swelling Objective: Filed Vitals: 02/06/22 1009 BP: 108/54 Pulse: 79 Resp: 16 Temp: 98.4 ??F (36.9 ??C) TempSrc: Skin SpO2: 96% Weight: 102.8 kg (226 lb 9.6 oz) Height: 5' 11 (1.803 m) Physical Exam Vitals and nursing note reviewed. HENT: Head: Normocephalic and atraumatic. Right Ear: Tympanic membrane, ear canal and external ear normal. Left Ear: Tympanic membrane, ear canal and external ear normal. Eyes: Conjunctiva/sclera: Conjunctivae normal. Cardiovascular: Rate and Rhythm: Normal rate and regular rhythm. Heart sounds: Normal heart sounds. No murmur heard. No friction rub. No gallop. Pulmonary: Effort: Pulmonary effort is normal. No respiratory distress. Breath sounds: Normal breath sounds. No wheezing or rales. Abdominal: Palpations: Abdomen is soft. Tenderness: There is no abdominal tenderness. Musculoskeletal: Comments: Notable swelling of 3rd digit on right hand with deformity Skin: General: Skin is warm and dry. Findings: No rash. Neurological: Mental Status: Mental status is at baseline. Psychiatric: Comments: Similar to previous Assessment & Plan: Wily was seen today for fatigue. Diagnoses and all orders for this visit: Essential hypertension - CBC W/DIFF AUTOMATED; Future - COMPREHENSIVE METABOLIC PANEL; Future - TSH W/REFLEX; Future - LIPID PANEL; Future - VITAMIN D, 25 OH; Future - VENIPUNC ARM DRAW - CBC W/DIFF AUTOMATED - COMPREHENSIVE METABOLIC PANEL - TSH W/REFLEX - LIPID PANEL - VITAMIN D, 25 OH Hyperlipidemia, unspecified hyperlipidemia type Vitamin D deficiency - VITAMIN D, 25 OH; Future - VITAMIN D, 25 OH Postconcussion syndrome - Ambulatory referral to Neurology ([facility]) Chronic post-traumatic headache, not intractable - Ambulatory referral to Neurology ([facility]) Tremor - Ambulatory referral to Neurology ([facility]) Polyneuropathy - Ambulatory referral to Neurology ([facility]) - gabapentin 100 MG capsule; Take 1 capsule (100 mg total) by mouth as needed in the morning and 1 capsule (100 mg total) as needed at noon and 1 capsule (100 mg total) as needed in the evening. Need for hepatitis C screening test - Cancel: HEPATITIS C ANTIBODY; Future - HEPATITIS C ANTIBODY W/RFX TO HCV RNA ([facility] ONLY); Future - HEPATITIS C ANTIBODY W/RFX TO HCV RNA ([facility] ONLY) Idiopathic gout, unspecified chronicity, unspecified site - URIC ACID BLOOD; Future - URIC ACID BLOOD BMI 31.0-31.9,adult Discussion/Summary: Will refer to new neurology and will start on gabapentin. Continue other meds; will ensure he is onappropriate meds. Continue other meds at this time. F/u with orthopedics and psych as recommended. Will order labs as per above for screening/diagnostic purposes. Will have pt f/u in 1 month to reassess and further discuss fatigue. Pt and v/u. Johnathon Braga DO documented in this encounter Plan of Treatment Upcoming Encounters Date Type Department Care Team (Late st Contact Info) Description 09/10/2024 11:30 AM ESTIMATOR LUMBER Appointment [facility] [address] [place] [address] Zay [place] [address] [facility] [address] [place] [address] 10/25/2024 9:20 AM ESTIMATOR LUMBER Office Visit [facility] Family & Internal Medicine - [place] [address] [place] [phone] Johnatohn Braga, [address] [place] [address] 11/21/2024 9:40 AM CDT Office Visit [facility] - [address], [address] [place] [phone] Shelli Gonzalez MD [address] [place] [address] Scheduled Referrals Name Type Priority Associated Diagnoses Orde r Schedule Ambulatory referral to Neurology ([facility]) Referral Routine Postconcussion syndrome Chronic post-traumatic headache, not intractable Tremor Polyneuropathy Ordered: 02/06/2022 documented as of this encounter Procedures Procedure Name Priority Date/Time Associated Diagnosis Comments HEPATITIS C ANTIBODY W/RFX TO HCV RNA Routine 02/06/2022 11:42 AM CDT Need for hepatitis C screening test TSH W/REFLEX Routine 02/06/2022 11:36 AM CDT Essential hypertension HEMOGLOBIN, GLYCOSYLATED Routine 02/06/2022 11:36 AM CDT COMPREHENSIVE METABOLIC PANEL Routine 02/06/2022 11:36 AM CDT Essential hypertension LIPID PANEL Routine 02/06/2022 11:36 AM CDT Essential hypertension CBC W/DIFF AUTOMATED Routine 02/06/2022 11:36 AM CDT Essential hypertension VITAMIN D, 25 OH Routine 02/06/2022 11:3 6 AM CDT Essential hypertension Vitamin D deficiency URIC ACID BLOOD Routine 02/06/2022 11:36 AM CDT Idiopathic gout, unspecified chronicity, unspecified site VENIPUNC ARM DRAW Routine 02/06/2022 10: 31 AM CDT Essential hypertension documented in this encounter Results * HEPATITIS C ANTIBODY W/RFX TO HCV RNA ([facility] ONLY) (02/06/2022 11:42 AM CDT) HEPATITIS C AB NON-REACTI VE NON-REACT CATHERINE [facility] SIGNAL TO CUTOFF 0.01 <[address] [facility] Comment: HCV antibody was non-reactive. There is no laboratory evidence of HCV infection. In most cases, no further action is required. However, if recent HCV exposure is suspected, a test for HCV RNA (test code 12392) is suggested. For additional information please refer to http://education.ShepHertz/faq/MEU49s2 (This link is being provided for informational/ educational purposes only.) 02/06/2022 11:4 2 AM CDT 02/07/2022 12:41 PM CDT Johnathon Braga DO LABORATORY Final Re sult [facility] [address] [place] [address] * (ABNORMAL) HEMOGLOBIN, GLYCOSYLATED (02/06/2022 11:36 AM CDT) HGB A1C 6.1(H) <5.7 % of total Hgb [facility] Comment: For someone without known diabetes, a [...] A1c for diagnosis of diabetes for children. 02/06/2022 11:3 6 AM CDT 02/07/2022 12:40 PM CDT Johnathon Braga DO LABORATORY Final Re sult Performing Organization Address [facility] de Phone Number [facility] [address] [place] [address] * URIC ACID BLOOD (02/06/2022 11:36 AM CDT) URIC ACID 5.1 4.0 - 8.0 mg/dL [facility] Comment: Therapeutic target for gout patients: <6.0 mg/dL ?? 02/06/2022 11:3 6 AM CDT 02/07/2022 12:39 PM CDT Johnathon Braga DO LABORATORY Final Re sult Performing Organization Address [facility] de Phone Number [facility] [address] [place] [address] * (ABNORMAL) VITAMIN D, 25 OH (02/06/2022 11:36 AM CDT) VITAMIN D 25 HYDROXY TOTAL S/P/B 27.1(L) >29.9 ng/mL [facility] Comment: Vitamin D, 25-Hydroxy reports concentrations of [...] 150 ng/mL before there is any concern. Leonarda Espinosa, Allan RYDER et al. Evaluation, treatment, and prevention of vitamin D deficiency: an Endocrine Society clinical practice guideline. J Clin Endocrinol Metab. 2011;96(7):1911-30.This test is performed by a Liquid Chromatography-Tandem Mass Spectrometry (LC-MS/MS) method. This test was developed and its performance characteristics determined by the [facility]. It has not been cleared or approved by the U.S. FDA. The [facility] management. is regulated under Clinical Laboratory Improvement Amendments [...] 150 ng/mL before there is any concern. Leonarda Espinosa, Allan RYDER, et al., Evaluation, treatment, and prevention of vitamin D deficiency: an Endocrine Society clinical practice guideline. J Clin. Endocrinol. Metab. 2011;96(7):1911-30. VITAMIN D 25 HYDROXY D3 S/P/B 27.1 ng/mL [facility] Comment: This test was developed and its analytical performance characteristics have been determined by [facility]. It has not been cleared or approved by the FDA. This assay has been validated pursuant to the CLIA regulations and is used for clinical purposes. VITAMIN D 25 HYDROXY D2 S/P/B <1.0(L) ng/mL [facility]. Comment: This test was developed and its analytical performance characteristics have been determined by [facility]. It has not been cleared or approved by the FDA. This assay has been validated pursuant to the CLIA regulations and is used for clinical purposes. 02/06/2022 11:3 6 AM CDT 02/07/2022 11:46 PM CDT us Johnathon Braga DO LABORATORY Final Re sult [facility] [place] [facility]. [address] [place] [address], [address] [place] [address] * (ABNORMAL) LIPID PANEL (02/06/2022 11:36 AM CDT) CHOLESTEROL 132 <200 mg/dL [facility] HDL 36(L) > OR = 40 mg/dL [facility] TRIGLYCERIDES 150(H) <150 mg/dL [facility] LDL (CALCULATED) 73 mg/dL (calc) [facility] Comment: Reference range: <100 Desirable range <100 mg/dL for primary prevention; ?? <70 mg/dL for patients with CHD or diabetic patients with > or = 2 CHD risk factors. LDL-C is now calculated using the Jimbo-David calculation, which is a validated novel method providing better accuracy than the Friedewald equation in the estimation of LDL-C. Jimbo POWELL et al. YAMILET. 2013;310(19): 4939-1248 (http://education.Digital Trowel.CMP [employer]rapeutics/faq/XDB302) CHOL/HDL RATIO 3.7 <5.0 (calc) [facility] NON HDL CHOLESTEROL 96 <130 mg/dL (calc) [facility] Comment: For patients with diabetes plus 1 major ASCVD risk factor, treating to a non-HDL-C goal of <100 mg/dL (LDL-C of <70 mg/dL) is considered a therapeutic option. 02/06/2022 11:3 6 AM CDT 02/07/2022 12:40 PM CDT Johnathon Braga DO LABORATORY Final Re sult Performing Organization Address [facility] de Phone Number [facility] [address] [place] [address] * TSH W/REFLEX (02/06/2022 11:36 AM CDT) TSH 1.13 0.40 - 4.50 mIU/L [facility] 02/06/2022 11:3 6 AM CDT 02/07/2022 12:40 PM CDT Johnathon Braga DO LABORATORY Final Re sult Performing Organization Address [facility] de Phone Number [facility] [address] [place] [address] * (ABNORMAL) COMPREHENSIVE METABOLIC PANEL (02/06/2022 11:36 AM CDT) GLUCOSE 104(H) 65 - 99 mg/dL [facility] Comment: ? Fasting reference interval For someone without known diabetes, a glucose value between 100 and 125 mg/dL is consistent with prediabetes and should be confirmed with a follow-up test. BUN 15 7 - 25 mg/dL [facility] CREATININE S/P/B 0.86 0.70 - 1.25 mg/dL [facility] Comment: For patients >49 years of age, the reference limit for Creatinine is approximately 13% higher for people identified as -Beninese. EGFR NON-AFR. AMER. 92 > OR = 60 mL/min/1 .73m2 [facility] EGFR AFR. AMER. 106 > OR = 60 mL/min/1 .73m2 [facility] BUN CREATININE RATIO NOT APPLICABLE (calc) [facility] SODIUM S/P/B 142 135 - 146 mmol/L [facility] POTASSIUM S/P/B 3.7 3.5 - 5.3 mmol/L [facility] CHLORIDE S/P/B 102 98 - 110 mmol/L [facility] CO2 28 20 - 32 mmol/L [facility] CALCIUM S/P/B 9.4 8.6 - 10.3 mg/dL [facility] TOTAL PROTEIN S/P/B 7.0 6.1 - 8.1 g/dL [facility] ALBUMIN S/P/B 4.2 3.6 - 5.1 g/dL [facility] GLOBULIN 2.8 1.9 - 3.7 g/dL (calc) [facility] ALBUMIN/GLOBULIN RATIO 1.5 1.0 - 2.5 (calc) [facility] BILIRUBIN TOTAL S/P/B 0.6 0.2 - 1.2 mg/dL [facility] ALKALINE PHOSPHATASE S/P/B 133 35 - 144 U/L [facility] AST 19 10 - 35 U/L [facility] ALT 17 9 - 46 U/L [facility] 02/06/2022 11:3 6 AM CDT 02/07/2022 12:40 PM CDT us Johnathon Braga DO LABORATORY Final Re sult [facility] [address] [place] [address] * (ABNORMAL) CBC W/DIFF AUTOMATED (02/06/2022 11:36 AM CDT) WBC 9.2 3.8 - 10.8 Thousand/u L [facility] RBC 5.20 4.20 - 5.80 Million/uL [facility] HGB 15.7 13.2 - 17.1 g/dL [facility] HCT 48.1 38.5 - 50.0 % [facility] MCV 92.5 80.0 - 100.0 fL [facility] MCH 30.2 27.0 - 33.0 pg [facility] MCHC 32.6 32.0 - 36.0 g/dL [facility] RDW 13.3 11.0 - 15.0 % [facility] PLT 157 140 - 400 Thousand/u L [facility] MPV 12.7(H) 7.5 - 12.5 fL [facility] ABS. NEUTROPHILS 6,771 1,500 - 7,800 cells/uL [facility] ABS. LYMPHOCYTES 1,500 850 - 3,900 cells/uL [facility] ABS. MONOCYTES 699 200 - 950 cells/uL [facility] ABS. EOSINOPHILS 193 15 - 500 cells/uL [facility] ABS. BASOPHILS 37 0 - 200 cells/uL [facility] SEG NEUTROPHILS 73.6 % [facility] LYMPHOCYTES 16.3 % [facility] MONOCYTES 7.6 % [facility] EOSINOPHILS 2.1 % [facility] BASOPHILS 0.4 % [facility] 02/06/2022 11:3 6 AM CDT 02/07/2022 12:40 PM CDT Johnathon Braga DO LABORATORY Final Re sult [facility] [address] [place] [address] documented in this encounter Visit Diagnoses Diagnosis Essential hypertension- Primary Unspecified essential hypertension Hyperlipidemia, unspecified hyperlipidemia type Vitamin D deficiency Unspecified vitamin D deficiency Postconcussion syndrome Chronic post-traumatic headache, not intractable Chronic post-traumatic headache Tremor Abnormal involuntary movements Polyneuropathy Unspecified hereditary and idiopathic peripheral neuropathy Need for hepatitis C screening test Special screening examination for other specified viral diseases Idiopathic gout, unspecified chronicity, unspecified site BMI 31.0-31.9,adult Body Mass Index 31.0-31.9, adult Injury of right hand, sequela documented in this encounter Additional Health Concerns Assessment Noted Time PHQ-9 Depression Total Score: 5 10/31/19 21 2:44 PM ESTIMATOR LUMBER documented as of this encounter Care Teams Caseworker Intake Relationship Specialty Start Date End Date Johnathon Braga DO [address] [place] [address] PCP - General FAMILY PRACTICE 10/31/20 documented as of this encounter
--- OUTSIDE RECORDS SUMMARY | 2024-09-03 07:53 | XMS_ITS | Encounter Summary ---
Author Organization [facility] Address [address] [place] [address]. [place], [place] [id number] [place] [address] Care Team Providers Care Aerospace Project Manager Name Role Phone Johnathon Braga DO Primary Care Provider + Encounter Details Date Type Department Care Team (Latest Contact Info) Description 12/04/2020 Scan HEALTH INFO SRVCS Scanned, Documents Social History [...] on file Legal Sex Male 11:26 AM ENDS DOWN CHECKER Gender Identity Not on file Sexual Orientation [...] st Contact Info) Description 09/10/2024 11:30 AM ENDS DOWN CHECKER Appointment [facility] [address] [place] [address] Zay Juá[place] [address] [facility] [address] [place] [address] 10/25/2024 9:20 AM ENDS DOWN CHECKER Office Visit [facility] & Internal Medicine - [place] [address] [place] [address] Johnathon Braga DO [address] [place] [address] 11/21/2024 9:40 AM CDT Office Visit [facility] - [address], [address] [place] [phone] Shelli Gonzalez MD [address] [place] [address] documented as of this encounter Visit Diagnoses Not on filedocumented in this encounter Additional Health Concerns Assessment Noted Time PHQ-9 Depression Total Score: 5 10/31/19 21 2:44 PM ENDS DOWN CHECKER documented as of this encounter Care Teams Aerospace Project Manager Relationship Specialty Start Date End Date Johnathon Braga DO [address] [place] [address] PCP - General FAMILY PRACTICE 10/31/20 documented as of this encounter
--- OUTSIDE RECORDS SUMMARY | 2024-09-03 07:53 | XMS_ITS | Encounter Summary ---
Author Organization [facility] Address [address] [place] [address]. [place], [place] [id number] [place] [address] Care Team Providers Care Substation Operator Helper Generation Name Role Phone Johnathon Braga Primary Care Provider + Encounter Details Date Type Department Care Team (Latest Contact Info) Description 10/31/2020 Travel Social History Tobacco Use Types Packs/Day [...] on file Legal Sex Male 11:26 AM PAPER CONE DRYING MACHINE OPERATOR Gender Identity Not on file Sexual Orientation Not on file COVID-19 Exposure Response Date Recorded In the last month, have you been in contact with someone who was confirmed or suspected to have Coronavirus / COVID-19? No / Unsure 10/31/2020 2:18 PM PAPER CONE DRYING MACHINE OPERATOR documented as of this encounter Plan of Treatment Upcoming Encounters Date Type Department Care Team (Late st Contact Info) Description 09/10/2024 11:30 AM PAPER CONE DRYING MACHINE OPERATOR Appointment [facility] [address] [place], [place] [id number] Zay Juá[place] [address] [address] 10/25/2024 9:20 AM PAPER CONE DRYING MACHINE OPERATOR Office Visit [facility] - [place] [address] [place] [address] Johnathon Braga DO [address] [place] [address] 11/21/2024 9:40 AM CDT Office Visit [facility] Multispecialty Care - [facility] [address] [facility], [address] [place] [phone] Shelli Gonzalez MD 3 [place] [address] documented as of this encounter Visit Diagnoses Not on filedocumented in this encounter Additional Health Concerns Assessment Noted Time PHQ-9 Depression Total Score: 5 10/31/19 21 2:44 PM PAPER CONE DRYING MACHINE OPERATOR documented as of this encounter Care Teams Substation Operator Helper Generation Relationship Specialty Start Date End Date Johnathon Braga DO [address] [place] [address] PCP - General FAMILY PRACTICE 10/31/20 documented as of this encounter
--- OUTSIDE RECORDS SUMMARY | 2024-09-03 07:53 | XMS_ITS | Encounter Summary ---
Author Organization [facility] Address [address] [place] [address]. [place], [place] [address] [place] [address] Care Team Providers Care Supervisor [place] Name Role Phone Johnathon Braga DO Primary Care Provider + Encounter Details Date Type Department Care Team (Latest Contact Info) Description 02/06/2022 Scan HEALTH INFO SRVCS Scanned, Documents Social [...] on file Legal Sex Male 11:26 AM TEST ADMINISTRATOR Gender Identity Not on file Sexual [...] st Contact Info) Description 09/10/2024 11:30 AM TEST ADMINISTRATOR Appointment [facility] [address] [place] [address] Zay Juá[place] [address] [facility] [address] [place] [phone] 10/25/2024 9:20 AM TEST ADMINISTRATOR Office Visit [facility] Family & Internal Medicine - [place] [address] [place] [address] Johnathon Braga DO [address] [place] [address] 11/21/2024 9:40 AM CDT Office Visit [facility] Multispecialty Care - [address], [address] [place] [phone] Shelli Gonzalez MD 3 [place] [address] documented as of this encounter Visit Diagnoses Not on filedocumented in this encounter Additional Health Concerns Assessment Noted Time PHQ-9 Depression Total Score: 5 10/31/19 21 2:44 PM TEST ADMINISTRATOR documented as of this encounter Care Teams Supervisor [place] Relationship Specialty Start Date End Date Johnathon Braga DO [address] [place] [address] PCP - General FAMILY PRACTICE 10/31/20 documented as of this encounter
--- OUTSIDE RECORDS SUMMARY | 2024-09-03 07:53 | XMS_ITS | Encounter Summary ---
Author Organization [facility] Address [address] [place] [address]. [place], [place] [address] [place] [address] Care Team Providers Care Automotive Project Engineer Name Role Phone Johnathon Braga Primary Care Provider + Reason for Visit * Reason Comments Lab (SCAN) Encounter Details Date Type Department Care Team (Latest Contact Info) Description 03/12/2022 Scan HEALTH INFO SRVCS Scanned, Documents Lab (SCAN) [...] on file Legal Sex Male 11:26 AM DIALYSIS RN Gender Identity Not on file Sexual Orientation Not on file COVID-19 Exposure Response Date Recorded In the last 10 days, have yo u been in contact with someone who was confirmed or suspected to have Coronavirus/COVID-19? No / Unsure 03/10/2022 2:09 PM CDT documented as of this encounter Plan of Treatment Upcoming Encounters Date Type Department Care Team (Late st Contact Info) Description 09/10/2024 11:30 AM DIALYSIS RN Appointment [facility] [address] [place] [address] Zay Juá[place] [address] [facility] [address] [place] [address] 10/25/2024 9:20 AM DIALYSIS RN Office Visit [facility] Family & Internal Medicine - [place] [address] [place] [address] [place] [address] [place] [address] 11/21/2024 9:40 AM CDT Office Visit [facility] Multispecialty Care - [address], [address] [place] [phone] Shelli Gonzalez MD 3 [place] [address] documented as of this encounter Procedures Procedure Name Priority Date/Time Associated Diagnosis Comments OUTSIDE LAB (SCAN ORDER) 03/12/2022 documented in this encounter Results * OUTSIDE LAB (SCAN) (03/12/2022) 03/12/2022 Narrative 03/12/2022 Ordered by an unspecified provider. us Documents Scanned SCANNING Final Result documented in this encounter Visit Diagnoses Not on filedocumented in this encounter Additional Health Concerns Assessment Noted Time PHQ-9 Depression Total Score: 5 10/31/19 21 2:44 PM DIALYSIS RN documented as of this encounter Care Teams Automotive Project Engineer Relationship Specialty Start Date End Date Johnathon Braga DO [address] [place] [address] PCP - General FAMILY PRACTICE 10/31/20 documented as of this encounter
--- OUTSIDE RECORDS SUMMARY | 2024-09-03 07:53 | XMS_ITS | Encounter Summary ---
Author Organization [facility] Address [address] [place] [address]. [place] [address] [place] [address] Care Team Providers Care Dress Operator Name Role Phone Johnathon Braga Timbo SHELTON Primary Care Provider + Reason for Visit * Reason Onset Date Comments Results 06/24/2022 Encounter Details Date Type Department Care Team (Late st Contact Info) Description 06/24/2022 Telephone [facility] Multispecialty Care - [address], [address] [place] [phone] Sean Cardenas MD [address] [place], [place] [phone] Results Social History Tobacco Use Types Packs/Day [...] on file Legal Sex Male 11:26 AM DRUM STENCILER Gender Identity Not on file Sexual Orientation Not on file COVID-19 Exposure Response Date Recorded In the last 10 days, have yo u been in contact with someone who was confirmed or suspected to have Coronavirus/COVID-19? No / Unsure 06/21/2022 10:49 AM CDT documented as of this encounter Progress Notes * Tonia Goodman MA - 06/24/2022 10:29 AM CDT I spoke with about results. She verbalized understanding. documented in this encounter Plan of Treatment Upcoming Encounters Date Type Department Care Team (Late st Contact Info) Description 09/10/2024 11:30 AM DRUM STENCILER Appointment [facility] [address] [place], [place] [phone] Zay Juá[place] [address] [address] 10/25/2024 9:20 AM DRUM STENCILER Office Visit [facility] Medical Group Family & Internal Medicine - [place] [address] [place] [phone] Johnathon Braga DO [address] [place] [address] 11/21/2024 9:40 AM CDT Office Visit [facility] Multispecialty Care - [address], [address] [place] [phone] Shelli Gonzalez MD [address] [place], [place] [phone] documented as of this encounter Visit Diagnoses Not on filedocumented in this encounter Additional Health Concerns Assessment Noted Time PHQ-9 Depression Total Score: 5 10/31/19 21 2:44 PM DRUM STENCILER documented as of this encounter Care Teams Dress Operator Relationship Specialty Start Date End Date Johnathon Braga DO [facility] [place] [address] PCP - General FAMILY PRACTICE 10/31/20 documented as of this encounter
--- OUTSIDE RECORDS SUMMARY | 2024-09-03 07:53 | XMS_ITS | Encounter Summary ---
Author Organization [facility] Address [address] [place] [address]. [place], [place] [address] [place] [address] Care Team Providers Care Recruiter Name Role Phone Johnathon Braga Primary Care Provider + Encounter Details Date Type Department Care Team (Latest Contact Info) Description 06/20/2022 Travel Social History Tobacco Use Types Packs/Day [...] on file Legal Sex Male 11:26 AM MEDICAL ASSISTANT Gender Identity Not on file Sexual Orientation Not on file COVID-19 Exposure Response Date Recorded In the last 10 days, have yo u been in contact with someone who was confirmed or suspected to have Coronavirus/COVID-19? No / Unsure 06/20/2022 10:37 AM CDT documented as of this encounter Plan of Treatment Upcoming Encounters Date Type Department Care Team (Late st Contact Info) Description 09/10/2024 11:30 AM MEDICAL ASSISTANT Appointment [facility] [address] [place] [address] Zay Juárez [place] [address] [phone] 10/25/2024 9:20 AM MEDICAL ASSISTANT Office Visit [facility] Family & Internal Medicine - [place] [address] [place] [address] Johnathon Braga DO [address] [place] [address] 11/21/2024 9:40 AM CDT Office Visit [facility] Multispecialty Care - [facility] [address] [facility], [address] [place] [phone] Shelli Gonzalez MD 3 [place] [address] documented as of this encounter Visit Diagnoses Not on filedocumented in this encounter Additional Health Concerns Assessment Noted Time PHQ-9 Depression Total Score: 5 10/31/19 2:44 PM MEDICAL ASSISTANT documented as of this encounter Care Teams Recruiter Relationship Specialty Start Date End Date Johnathon Braga DO [address] [place] [address] PCP - General FAMILY PRACTICE 10/31/20 documented as of this encounter
--- OUTSIDE RECORDS SUMMARY | 2024-09-03 07:53 | XMS_ITS | Encounter Summary ---
Author Organization [facility] Address [address] [place] [address]. [place], [place] [phone] [place] [address] Care Team Providers Care Textile Machinery Sales Representative Name Role Phone Johnathon Braga Timbo SHELOTN Primary Care Provider + Reason for Visit * Reason Onset Date Comments Question 08/01/2022 Encounter Details Date Type Department Care Team (Late st Contact Info) Description 08/01/2022 Telephone [facility] Multispecialty Care - [facility] 3 [facility], [address] [place] [address] Giuseppe Da Silva MD [address] [place] [address] Question Social History Tobacco Use Types Packs/Day [...] on file Legal Sex Male 11:26 AM BATCH ROOM TECHNICIAN Gender Identity Not on file Sexual Orientation Not on file documented as of this encounter Progress Notes * Killian Brown LPN - 08/01/2022 2:25 PM CST Patients' Nayana was made aware of detail regarding patients' activity during the EEG. Patients' V/U. H ROOM TECHNICIAN * Killian Brown LPN - 08/01/2022 2:24 PM CST ----- Message from Giuseppe Da Silva MD sent at 07/29/2022 7:20 AM BATCH ROOM TECHNICIAN ----- Ok, we don't need to see him do any specific activity during the test so that information gathered was ok. If he was very active then we would not be able to read the EEG. ----- Message ----- From: Kate Julien MA Sent: 07/28/2022 3:46 PM BATCH ROOM TECHNICIAN To: Giuseppe Da Silva MD H ROOM TECHNICIAN documented in this encounter Plan of Treatment Upcoming Encounters Date Type Department Care Team (Late st Contact Info) Description 09/10/2024 11:30 AM BATCH ROOM TECHNICIAN Appointment [facility] [address] [place] [address] Zay [place] [address] [facility] [address] [place] [address] 10/25/2024 9:20 AM BATCH ROOM TECHNICIAN Office Visit [facility] Family & Internal Medicine - [address] [address] Johnathon Braga DO [address] [place] [address] 11/21/2024 9:40 AM CDT Office Visit [facility] Multispecialty Care - [address], [address] [place] [address] Shelli Gonzalez MD 3 [place] [address] documented as of this encounter Visit Diagnoses Not on filedocumented in this encounter Additional Health Concerns Assessment Noted Time PHQ-9 Depression Total Score: 5 10/31/19 21 2:44 PM BATCH ROOM TECHNICIAN documented as of this encounter Care Teams Textile Machinery Sales Representative Relationship Specialty Start Date End Date Johnathon Braga DO [address] [place] [address] PCP - General FAMILY PRACTICE 10/31/20 documented as of this encounter
--- OUTSIDE RECORDS SUMMARY | 2024-09-03 07:53 | XMS_ITS | Encounter Summary ---
Author Organization [facility] Address [address] [place] [address]. [place], [place] [address] [place] [address] Care Team Providers Care Access Registrar Name Role Phone Gale Bragary Timbo SHELTON Primary Care Provider + Reason for Referral * Procedure (Routine) - Closed Specialty Diagnoses / Procedures Referred By Contac t Referred To Contact NEUROLOGY Diagnoses Neuropathy Procedures EMG Nikki Michelle MD Phone: tel: fax: [facility] Multispecialty Care - [facility] [address] [facility], [address] [place] [address] Phone: tel: Referral ID Status Reason Start Date Expiration Date V isits Requested Visits Authorized [id number] Closed Office Procedure 06/20/2022 06/20/2023 1 1 * Imaging (Routine) - Closed Specialty Diagnoses / Procedures Referred By Contac t Referred To Contact RADIOLOGY Diagnoses Vertigo Procedures CT TEMP BONES WO CON Nikki Michelle MD Phone: tel: fax: Referral ID Status Reason Start Date Expiration Date Visits Re quested Visits Authorized [id number] Closed 06/20/2022 06/20/2023 1 1 Reason for Visit * Reason Comments New Patient * Consultation (Routine) - Closed Specialty Diagnoses / Procedures Referred By Contac t Referred To Contact NEUROLOGY Diagnoses Postconcussion syndrome Chronic post-traumatic headache, not intractable Tremor Polyneuropathy Johnathon Braga, DO [address] [place] [address] Phone: tel: fax: [facility] - [address], [address] [place] [address] Phone: tel: Referral ID Status Reason Start Date Expiration Date V isits Requested Visits Authorized [id number] Closed Specialty Services 02/06/2022 03/09/2023 99 [phone] Encounter Details Date Type Department Care Team (Late st Contact Info) Description 06/20/2022 10:40 AM CDT Office Visit [facility] - [address], [address] [place] [address] Nikki Michelle MD [address] [place] [address] New Patient Social History Tobacco Use Types Packs/Day Years [...] on file Legal Sex Male 11:26 AM 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 No / Unsure 06/20/2022 10:37 AM CDT documented as of this encounter Last Filed Vital Signs Vital Sign Reading Time Taken Comments Blood Pressure 134/84 06/20/2022 10:51 AM CDT Pulse 70 06/20/2022 10:51 AM CDT Temperature 36.1 ??C (97 ??F) 06/20/2022 10:51 AM CDT Respiratory Rate - - Oxygen Saturation 97% 06/20/2022 10:51 AM CDT Inhaled Oxygen Concentration - - Weight 72.6 kg (160 lb) 06/20/2022 10:51 AM CDT Height 180.3 cm (5' 11 ) 06/20/2022 10:51 AM CDT Body Mass Index 22.32 06/20/2022 10:51 AM CDT documented in this encounter Progress Notes * Nikki Michelle MD - 06/20/2022 10:40 AM CDT Neurology Clinic [facility] Multispecialty Care - [address], [address] [facility] [place] [facility] [address] Dept: [phone] Name: Wily Bahena Date of : 1955 PCP: Johnathon Braga DO Date: 06/20/2022 Chief Complaint: Postconcussive syndrome History of Present Illness: Wily Bahena is a 66-year-old male with a past medical history significant for a remote history of head trauma complicated by behavioral disturbance, peripheral neuropathy, hypertension who was referred by Johnathon Braga DO to the Neurology Clinic for evaluation of postconcussive syndrome. He presents with his who aids in [...] also does counseling. They were following at [facility] for management of the symptoms. He has [...] Refill ??? allopurinol (ZYLOPRIM) 300 MG tablet TAKE ONE TABLET BY MOUTH DAILY 90 tablet 0 ??? atorvastatin (LIPITOR) 10 MG tablet TAKE ONE TABLET BY MOUTH EVERY DAY AT BEDTIME 90 tablet 1 ??? chlorthalidone (HYGROTEN) 25 MG tablet Take 1 tablet by mouth once daily 90 tablet 0 ??? dextromethorphan-quiNIDine 20-10 MG Cap capsule Take by mouth 2 (two) times a day. ??? donepezil 10 MG Tab ??? fish oil 1000 MG Cap capsule Take by mouth 2 (two) times daily. ??? gabapentin (NEURONTIN) 100 MG capsule ??? gabapentin 300 MG capsule Take 1 capsule (300 mg total) by mouth 2 (two) times a day. 60 capsule 2 ??? gentamicin 0.1 % ointment Apply topically to foot wound(s) twice daily until healed 30 g 0 ??? hydrOXYzine 50 MG tablet ??? ipratropium (ATROVENT) 0.06 % nasal spray ??? lamoTRIgine 100 MG tablet ??? meclizine 25 MG tablet Take 1 tablet by mouth daily as needed. ??? modafinil 200 MG tablet ??? Multiple Vitamins-Minerals (CENTRUM ADULTS OR) Take 1 tablet by mouth daily. ??? prazosin (MINIPRESS) 2 MG capsule ??? tamsulosin 0.4 MG Cap Take 1 capsule by mouth in the morning. ??? testosterone cypionate 200 MG/ML injection ??? venlafaxine 75 MG tablet ??? vitamin D3, cholecalciferol, 1000 UNIT Tab tablet Take 2,000 Units by mouth daily. No current facility-administered medications for this visit. Past Medical History: Diagnosis Date ??? Dementia [...] Sister ??? Prostate Cancer Brother Social History Tobacco Use ??? Smoking status: Never Smoker ??? Smokeless tobacco: Never Used Substance Use Topics ??? Alcohol use: Never ??? Drug use: Never Review of Systems Neurological: Positive for dizziness, loss of consciousness and headaches. Psychiatric/Behavioral: Positive for memory loss. Filed Vitals: 06/20/22 1051 BP: 134/84 Pulse: 70 Temp: 97 ??F (36.1 ??C) TempSrc: Temporal SpO2: 97% Weight: 72.6 kg (160 lb) Height: 5' 11 (1.803 m) GENERAL EXAMINATION Patient is in no apparent distress, cooperates with examination. HEAD: normocephalic, atraumatic EYES: normal. EARS, NOSE AND THROAT: normal, no lesions or exudates. NECK: supple CHEST: breathing comfortably CARDIOVASCULAR: regular rate and rhythm GI: non distended EXTREMITIES: no clubbing, edema or cyanosis. MUSCULOSKELETAL: no contractures NEUROLOGY EXAMINATION MENTAL STATUS: Patient was alert, awake and oriented x3, regards and follows commands. Normal language. CRANIAL NERVES: II: Visual dunlap were full.Pupils were equal, round and reactive to light. III, IV, : normal extraocular movements, no nystagmus. No eyelid ptosis. V: Normal jaw closure and opening. Facial sensation was intact in V1-3 VII: face was symmetric. Eye closure and lip closure were normal. VIII: hearing was normal. IX-X: palate elevates at midline. XI: normal symmetric shoulder shrug. Normal 5/5 sternocleidomastoid strength. XII: tongue was midline and strong. No fasciculations. MOTOR: Normal strength 5/5 on MRC scale in the upper and lower extremities. Normal muscle tone. Fine finger movements were normal bilaterally. No pronator drift. SENSATION: Diminished light touch in the distal extremities. Absent temperature sensation, vibration is 3/8 atthe bilateral knees. REFLEXES: 2+ throughout except trace at the Achilles. COORDINATION: Absent dysmetria on finger -nose -finger. No tremor. GAIT: Normal stride and base. Imaging and Pertinent Labs: See HPI Impression: Wily Bahena is a 66-year-old male with a past medical history significant for head trauma complicated by behavioral disturbance, peripheral neuropathy, hypertension who was referred to the NeurologyClinic for evaluation of postconcussive syndrome. He has experienced a multitude of various symptoms after having a head injury. In regards to his behavioral disturbance, one consideration could include frontal lobe seizures. Hehas been on multiple mood stabilizers which also function his antiseizure medications which have been ineffective. We will perform ambulatory EEG to evaluate whether or not these could potentially be seizure or not. Would recommend he continue to follow closely with psychiatry for management of these behaviors. He may benefit from adding beta-janis or amantadine as an adjunct. In regards to his symptoms of vertigo, this may be due to inner ear pathology. He could potentiallyhave dehiscence of his semicircular canals causing autophony along with vertigo. We will check CT of the temporal bones. He has no clear risk factors for neuropathy. Due to ensure he does not have evidence of a demyelinating neuropathy. We will also check laboratory studies to evaluate common causes. Plan: #Behavioral disturbance/postconcussive syndrome - Ambulatory EEG -Continue to follow psychiatry for management of behaviors #Vertigo and autophony - CT of the temporal bones #Peripheral neuropathy - Copper, vitamin E, RPR, B12, thiamine, protein electrophoresis, kappa/lambda ratio, immunofixation -EMG nerve conduction study Return to clinic in 3 to 4 months Nikki Michelle MD I spent 65 minutes today reviewing the patient's medical record, obtaining history, performing an exam, ordering medications, tests, and/or procedures, documenting in the medical record, counseling and educating the patient/family/caregiver, reviewing and communicating test results and coordinationof care. * Nikki Michelle MD - 06/20/2022 10:40 AM CDT Can you please let them know that their blood work shows that her B12 was borderline low. They should replete this by taking B12 2000 mcg daily for two weeks then 1000 mcg daily thereafter. This has been sent to their pharmacy but sometimes it has to be bought over the counter. Low levels of B12 can sometimes lead to peripheral neuropathy. Her other blood tests looking at vitamin E, copper, thiamine, protein levels were within normal limits. We can discuss their results further when they return to their follow up visit. Please let me know if there are any questions. * Kate Julien MA - 06/20/2022 10:40 AM CDT Called patient, no answer, left detailed message informing of low B12 levels and the need for supplementation. Also informed that all other blood work was within normal limits. Asked patient to return call with any questions. documented in this encounter Plan of Treatment Upcoming Encounters Date Type Department Care Team (Late st Contact Info) Description 09/10/2024 11:30 AM NON MORSE INTERCEPT TECHNICIAN Appointment [facility] [address] [place] [address] [place] [address] [facility] [address] [place] [address] 10/25/2024 9:20 AM NON MORSE INTERCEPT TECHNICIAN Office Visit [facility] - [address] [address] Johnathon Braga DO [address] [place] [address] 11/21/2024 9:40 AM CDT Office Visit [facility]pecialty Care - [facility] [address] [facility], [address] [place] [phone] Shelli Gonzalez MD [address] [place] [address] documented as of this encounter Procedures Procedure Name Priority Date/Time Associated Diagnosis Comments KAPPA LAMBDA FREE RATIO (QST) Routine 06/20/2022 2:08 PM CDT Neuropathy VITAMIN B-12 Routine 06/20/2022 2:08 PM CDT Neuropathy IMMUNOFIXATION Routine 06/20/2022 2:08 PM CDT Neuropathy VITAMIN E Routine 06/20/2022 2:08 PM CDT Neuropathy RPR (MONITOR/CONGENITAL <6M) WITH REFLEX TO TITER Routine 06/20/2022 2:05 PM CDT Neuropathy HEMOGLOBIN, GLYCOSYLATED Routine 06/20/2022 2:05 PM CDT Neuropathy Abnormal finding of blood chemistry, unspecified PROTEIN, ELECTROPHORESIS Routine 06/20/2022 2:05 PM CDT Neuropathy COPPER Routine 06/20/2022 2:05 PM CDT Neuropathy Abnormal levels of other serum enzymes VITAMIN B1 THIAMINE Routine 06/20/2022 2 :03 PM CDT Neuropathy documented in this encounter Results * EMG (08/28/2022 12:27 PM NON MORSE INTERCEPT TECHNICIAN) 08/28/2022 12:2 7 PM NON MORSE INTERCEPT TECHNICIAN us Nikki Michelle MD NEUROLOGY ORDERABLES Final Result [facility] RAD * CT TEMP BONES WO CON (06/21/2022 11:22 AM CDT) Anatomical Region Laterality Modality Head Computed Tomogra phy 06/23/2022 7:07 PM CDT Impressions 06/23/2022 8:15 PM CDT IMPRESSION: 1. ??No evidence of superior semicircular canal dehiscence/arcuate eminence thickening. ??Normal appearance of the internal auditory canals. 2. 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 Referred By: NIKKI MICHELLE Interpreted By: Chito Morales MD, 06/23/2022 7:07 PM Narrative 06/23/2022 8:15 PM CDT EXAMINATION: CT TEMP BONES WO CON, 06/23/2022 7:07 PM TECHNIQUE: Computed tomographic images of the temporal bones were obtained without intravenous contrast. Additional coronal and sagittal reformatted images were generated. ?? A dose lowering technique was used for this procedure, which may include, but is not limited to, dose reduction technique, automated exposure control, the use of iterative reconstruction, and ALARA (As Low As Reasonably Achievable) / Image Gently techniques. HISTORY: Canal dehiscence, vertigo COMPARISON: CT head 12/03/2020 FINDINGS: RIGHT IAC/TEMPORAL BONE: The right external auditory canal appears normal. ??There is cerumen within the right external auditory canal. ??The tympanic membrane appears normal. ??The vesicular chain is intact. ??The middle ear and mastoid air cells are well aerated. ??Normal arterial eminence. ??Normal morphology of the internal auditory canal, cochlea and semicircular canals. ??The facial nerve canal appears normal. ??The petrous apex appears normal. The jugular foramen and carotid canal appear normal. ??The sigmoid plate is intact. ??The TMJ is normal. ??The tegmen tympani and tegmen mastoideum are intact. LEFT IAC/TEMPORAL BONE: The left external auditory canal appears normal. ??Tympanic membrane appears normal. ??The testicular chain is intact. ??The middle ear and mastoid air cells are well aerated. ??The internal auditory canal, cochlea and semicircular canals appear normal. ??The arcuate eminence appears normal. ??The tegmen tympani and tegmen mastoideum are intact. ??The facial nerve canal appears normal. ??The petrous apex appears normal. ??The carotid canal and jugular foramen appear normal. ??The sigmoid plate is intact. Mild mucosal thickening involving the inferior aspects of the frontal sinuses and ethmoidal air cells. 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 ??Additional congenital incomplete fusion of the anterior C1 arch. ??Minimal arteriosclerotic calcification the cavernous segments the internal carotid arteries bilaterally. Procedure Note Chito Morales MD - 06/23/2022 EXAMINATION: CT TEMP BONES WO CON, 06/23/2022 7:07 PM TECHNIQUE: Computed tomographic images of the temporal bones were obtainedwithout intravenous contrast. Additional coronal and sagittal reformattedimages were generated. A dose lowering technique was used for thisprocedure, which may include, but is not limited to, dose reductiontechnique, automated exposure control, the use of iterativereconstruction, and ALARA (As Low As Reasonably Achievable) / Image Gentlytechniques. HISTORY: Canal dehiscence, vertigo COMPARISON: CT head 12/03/2020 FINDINGS: RIGHT IAC/TEMPORAL BONE: The right external auditory canal appears normal.There is cerumen within the right external auditory canal. The tympanicmembrane appears normal. The vesicular chain is intact. The middle earand mastoid air cells are well aerated. Normal arterial eminence. Normalmorphology of the internal auditory canal, cochlea and semicircularcanals. The facial nerve canal appears normal. The petrous apex appearsnormal. The jugular foramen and carotid canal appear normal. The sigmoidplate is intact. The TMJ is normal. The tegmen tympani and tegmenmastoideum are intact. LEFT IAC/TEMPORAL BONE: The left external auditory canal appears normal.Tympanic membrane appears normal. The testicular chain is intact. Themiddle ear and mastoid air cells are well aerated. The internal auditorycanal, cochlea and semicircular canals appear normal. The arcuateeminence appears normal. The tegmen tympani and tegmen mastoideum areintact. The facial nerve canal appears normal. The petrous apex appearsnormal. The carotid canal and jugular foramen appear normal. The sigmoidplate is intact. Mild mucosal thickening involving the inferior aspects of the frontalsinuses and ethmoidal air cells. Congenital incomplete fusion of theposterior C1 arch. Additional congenital incomplete fusion of theanterior C1 arch. Minimal arteriosclerotic calcification the cavernoussegments the internal carotid arteries bilaterally. IMPRESSION: 1. No evidence of superior semicircular canal dehiscence/arcuate eminencethickening. Normal appearance of the internal auditory canals. 2. 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 Referred By: NIKKI MICHELLE Interpreted By: Chito Morales MD, 06/23/2022 7:07 PM us Nikki Michelle MD CT Shaila l Result * (ABNORMAL) KAPPA LAMBDA FREE RATIO (QST) (06/20/2022 2:08 PM CDT) KAPPA FREE LIGHT CHAIN 20.7(H) 3.3 - 19.4 mg/L [facility] LAMBDA FREE LIGHT CHAIN 14.6 5.7 - 26.3 mg/L [facility] KAPPA/LAMBDA RATIO 1.42 0.26 - 1.65 [facility] Comment: Free kappa/lambda ratio in serum of normal individuals is 0.26-1.65. Excess production of free kappa or lambda chains can alter this ratio. Monoclonal free light chains are found in serum of patients with multiple myeloma, Waldenstrom's macroglobulinemia, mu-heavy chain disease, primary amyloidosis, light chain deposition disease, monoclonal gammopathy of undetermined significance, and lymphoproliferative disorders. Measurement of free light chain concentration in serum is useful for diagnosis, prognosis, monitoring disease activity and following response to therapy of these disorders. 06/20/2022 2:08 PM CDT 06/20/2022 2:08 PM CDT Nikki Michelle MD LABORATORY Shaila l Result Performing Organization Address [facility] Co de Phone Number [employer] [facility] [place] [facility] [address] [place] [address] * VITAMIN B-12 (06/20/2022 2:08 PM CDT) Pathologist [facility] VITAMIN B12 S/P/B 306 200 - 1,100 pg/mL [facility] Comment: Please Note: Although the reference range for vitamin B12 is 200-1100 pg/mL, it has been reported that between 5 and 10% of patients with values between 200 and 400 pg/mL may experience neuropsychiatric and hematologic abnormalities due to occult B12 deficiency; less than 1% of patients with values above 400 pg/mL will have symptoms. 06/20/2022 2:08 PM CDT 06/20/2022 2:08 PM CDT Nikki Michelle MD LABORATORY Shaila l Result Performing Organization Address [facility]/ZIP Co de Phone Number [employer] [facility] [place] [facility] [address] [place] [address] * IMMUNOFIXATION (06/20/2022 2:08 PM CDT) [facility] INTERPRETATION Normal pattern. No monoclonal proteins detected. [facility] 06/20/2022 2:08 PM CDT 06/20/2022 2:08 PM CDT Nikki Michelle MD LABORATORY Shaila l Result Performing Organization Address [facility] de Phone Number [employer] [facility] [place] [facility] [facility] [address] [place] [address] * VITAMIN E (06/20/2022 2:08 PM CDT) [facility] ALPHA-TOCOPHEROL S/P/B 11.3 mg/L [facility] Comment: ?Reference Range ?5.7-19.9 mg/L ?Levels of alpha-tocopherol <5 mg/L are ?consistent with Vitamin E deficiency in ?adults. Vitamin supplementation within 24 hours prior to blood draw may affect the accuracy of results. ? This test was developed and its analytical performance characteristics have been determined by [facility]. It has not been cleared or approved by the FDA. This assay has been validated pursuant to the CLIA regulations and is used for clinical purposes. BETA-GAMMA TOCOPHEROL S/P/B 1.2 <4.4 mg/L [facility] Comment: This test was developed and its analytical performance characteristics have been determined by [facility]. It has not been cleared or approved by the FDA. This assay has been validated pursuant to the CLIA regulations and is used for clinical purposes. 06/20/2022 2:08 PM CDT 06/20/2022 2:08 PM CDT Nikki Michelle MD LABORATORY Shaila l Result [facility] [place] [facility] [address] [place] [address] * RPR (MONITOR) W/RFX TO TITER ([facility] ONLY) (06/20/2022 2:05 PM CDT) RPR NON-REACTIV E NON-REACTI VE [facility] 06/20/2022 2:05 PM CDT 06/20/2022 2:06 PM CDT Nikki Michelle MD LABORATORY Shaila l Result [facility] [place] [facility] [address] [place] [address] * PROTEIN, ELECTROPHORESIS (06/20/2022 2:05 PM CDT) TOTAL PROTEIN S/P/B 7.0 6.1 - 8.1 g/dL [facility] ALBUMIN ELECTROPHORESIS S/P/B 4.1 3.8 - 4.8 g/dL [facility] [id number] S/P/B 0.3 0.2 - 0.3 g/dL [facility] [id number] S/P/B 0.7 0.5 - 0.9 g/dL [facility] BETA 1 GLOBULIN S/P/B 0.5 0.4 - 0.6 g/dL [facility] BETA 2 GLOBULIN S/P/B 0.4 0.2 - 0.5 g/dL [facility] GAMMA GLOBULIN S/P/B 1.1 0.8 - 1.7 g/dL [facility] INTERPRETATION No restricted band (M-spike) seen. [facility] 06/20/2022 2:05 PM CDT 06/20/2022 2:06 PM CDT Nikki Michelle MD LABORATORY Shaila l Result [facility] [place] [address] [address] [address] * (ABNORMAL) HEMOGLOBIN, GLYCOSYLATED (06/20/2022 2:05 PM CDT) HGB A1C 5.7(H) <5.7 % of total Hgb [facility] Comment: For someone without known diabetes, a [...] for diagnosis of diabetes for children. 06/20/2022 2:05 PM CDT 06/20/2022 2:06 PM CDT us Nikki Michelle MD LABORATORY Shaila l Result Performing Organization Address [facility] Co de Phone Number [employer] [facility] [place] [facility] [address] [place] [address] * COPPER (06/20/2022 2:05 PM CDT) COPPER S/P/B 111 70 - 175 mcg/dL [facility] Comment: This test was developed and its analytical performance characteristics have been determined by [facility]. It has not been cleared or approved by the FDA. This assay has been validated pursuant to the CLIA regulations and is used for clinical purposes. 06/20/2022 2:05 PM CDT 06/20/2022 2:06 PM CDT Nikki Michelle MD LABORATORY Shaila l Result Performing Organization Address City[facility]/ZIP Co de Phone Number [employer] [facility] [place] [facility] [address] [place] [address] * VITAMIN B1 THIAMINE (06/20/2022 2:03 PM CDT) VITAMIN B1 S/P/B 13 8 - 30 nmol/L [facility] Comment: Vitamin supplementation within 24 hours prior to blood draw may affect the accuracy of results. ? This test was developed and its analytical performance characteristics have been determined by [facility]. It has not been cleared or approved by the FDA. This assay has been validated pursuant to the CLIA regulations and is used for clinical purposes. 06/20/2022 2:03 PM CDT 06/20/2022 2:03 PM CDT Nikki Michelle MD LABORATORY Shaila l Result [employer] [facility] [place] [facility] [address] [place] [address] documented in this encounter Visit Diagnoses Diagnosis Vertigo- Primary Dizziness and giddiness Neuropathy Mononeuritis of unspecified site Abnormal levels of other serum enzymes Abnormal finding of blood chemistry, unspecified Vertigo Dizziness and giddiness documented in this encounter Additional Health Concerns Assessment Noted Time PHQ-9 Depression Total Score: 5 10/31/19 21 2:44 PM NON MORSE INTERCEPT TECHNICIAN documented as of this encounter Care Teams Access Registrar Relationship Specialty Start Date End Date Johnathon Braga DO [address] [place] [address] PCP - General FAMILY PRACTICE 10/31/20 documented as of this encounter
--- OUTSIDE RECORDS SUMMARY | 2024-09-03 07:53 | XMS_ITS | Encounter Summary ---
Author Organization [facility] Address [address] [place] [address]. [place], [place] [address] [place] [address] Care Team Providers Care Cabin Cleaner Name Role Phone Johnathon Braga Primary Care Provider + Encounter Details Date Type Department Care Team (Latest Contact Info) Description 08/27/2022 Travel Social History Tobacco Use Types Packs/Day [...] on file Legal Sex Male 11:26 AM RATE QUOTING OPERATOR Gender Identity Not on file Sexual Orientation Not on file COVID-19 Exposure Response Date Recorded In the last 10 days, have yo u been in contact with someone who was confirmed or suspected to have Coronavirus/COVID-19? No / Unsure 08/27/2022 9:51 AM RATE QUOTING OPERATOR documented as of this encounter Plan of Treatment Upcoming Encounters Date Type Department Care Team (Late st Contact Info) Description 09/10/2024 11:30 AM RATE QUOTING OPERATOR Appointment [facility] [address] [place], [place] [phone] Zay [place] [address] [address] [place] [phone] 10/25/2024 9:20 AM RATE QUOTING OPERATOR Office Visit [facility] - [place] [address] [place] [address] Johnathon Braga DO [address] [place] [address] 11/21/2024 9:40 AM CDT Office Visit [facility] Multispecialty Care - [facility] [address] [facility], [address] [place] [phone] Shelli Gonzalez MD 3 [place] [address] documented as of this encounter Visit Diagnoses Not on filedocumented in this encounter Additional Health Concerns Assessment Noted Time PHQ-9 Depression Total Score: 5 10/31/19 21 2:44 PM RATE QUOTING OPERATOR documented as of this encounter Care Teams Cabin Cleaner Relationship Specialty Start Date End Date Johnathon Braga DO [address] [place] [address] PCP - General FAMILY PRACTICE 10/31/20 documented as of this encounter
--- OUTSIDE RECORDS SUMMARY | 2024-09-03 07:53 | XMS_ITS | Encounter Summary ---
Author Organization [facility] Address [address] [place] [address]. [place], [place] [address] [place] [address] Care Team Providers Care Head Of Insight Name Role Phone Johnathon Braga Primary Care Provider + Encounter Details Date Type Department Care Team (Latest Contact Info) Description 03/10/2022 Travel Social History Tobacco Use Types Packs/Day [...] on file Legal Sex Male 11:26 AM EARTH OBSERVATIONS CHIEF SCIENTIST Gender Identity Not on file Sexual Orientation [...] st Contact Info) Description 09/10/2024 11:30 AM EARTH OBSERVATIONS CHIEF SCIENTIST Appointment [facility] [address] [place] [address] Zay Juárez [place] [address] [phone] 10/25/2024 9:20 AM EARTH OBSERVATIONS CHIEF SCIENTIST Office Visit [facility] Family & [facility] - [place] [address] [place] [address] Johnathon Braga DO [address] [place] [address] 11/21/2024 9:40 AM CDT Office Visit [facility] Multispecialty Care - [facility] 3 [facility], [address] [place] [phone] Shelli Gonzalez MD 3 [place] [address] documented as of this encounter Visit Diagnoses Not on filedocumented in this encounter Additional Health Concerns Assessment Noted Time PHQ-9 Depression Total Score: 5 10/31/19 2:44 PM EARTH OBSERVATIONS CHIEF SCIENTIST documented as of this encounter Care Teams Head Of Insight Relationship Specialty Start Date End Date Johnathon Braga DO [address] [place] [address] PCP - General FAMILY PRACTICE 10/31/20 documented as of this encounter
--- OUTSIDE RECORDS SUMMARY | 2024-09-03 07:53 | XMS_ITS | Encounter Summary ---
Author Organization [facility] Address [address] [place] [address]. [place], [place] [phone] [place] [address] Care Team Providers Care Staff Radiologist Name Role Phone Johnathon Braga Timbo SHELTON Primary Care Provider + Reason for Visit * Reason Onset Date Comments Results 06/24/2022 Encounter Details Date Type Department Care Team (Late st Contact Info) Description 06/24/2022 Telephone 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 No / Unsure 06/21/2022 10:49 AM CDT documented as of this encounter Progress Notes * Suad Canela - 06/24/2022 8:51 AM CDT Pt returned call to Tonia Please call her with results * Tonia Goodman MA - 06/24/2022 8:24 AM CDT LVM for pt for results. * Tonia Goodman MA - 06/24/2022 8:24 AM CDT ----- Message from Giuseppe Da Silva MD sent at 06/24/2022 8:00 AM CDT ----- Can you please let them know that their inner ear looks normal. 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 Thisis unlikely to be causing any symptoms. documented in this encounter Plan of Treatment Upcoming Encounters Date Type Department Care Team (Late st Contact Info) Description 09/10/2024 11:30 AM MEDICAL TECHNOLOGIST CHEMISTRY Appointment [facility] [address] [place] [address] Zay Juá[place] [address] [facility] [address] [place] [phone] 10/25/2024 9:20 AM MEDICAL TECHNOLOGIST CHEMISTRY Office Visit [facility] Medical Group Family & Internal Medicine - [address] [phone] Johnathon Braga, [address] [place] [address] 11/21/2024 9:40 AM CDT Office Visit [facility] Multispecialty Care - [facility] 3 [facility], [address] [place] [address] Shelli Gonzalez MD 3 [place] [address] documented as of this encounter Visit Diagnoses Not on filedocumented in this encounter Additional Health Concerns Assessment Noted Time PHQ-9 Depression Total Score: 5 10/31/19 21 2:44 PM MEDICAL TECHNOLOGIST CHEMISTRY documented as of this encounter Care Teams Staff Radiologist Relationship Specialty Start Date End Date Johnathon Braga DO [address] [place] [address] PCP - General FAMILY PRACTICE 10/31/20 documented as of this encounter
--- OUTSIDE RECORDS SUMMARY | 2024-09-03 07:53 | XMS_ITS | Encounter Summary ---
Author Organization [facility] Address [address] [place] [address]. [place], [place] [address] [place] [address] Care Team Providers Care Personal Banking Representative Name Role Phone Johnathon Braga DO Primary Care Provider + Reason for Visit * Physical Medicine (Routine) - Closed Specialty Diagnoses / Procedures Referred By Jonah weber Referred To Contact PHYSICAL THERAPY / [facility] Physical Therapy Diagnoses Vertigo Johnathon Braga DO [address] [place] [address] Phone: tel: fax: [facility] [place] [address] Phone: tel: fax: Referral ID Status Reason Start Date Expiration Date V isits Requested Visits Authorized [id number] Closed Physical Therapy 12/04/2020 01/03/2022 10 10 Encounter Details Date Type Department Care Team (Latest Contact Info) Description 12/24/2020 9:45 AM CDT - 12/24/2020 11:59 PM T Hospital Encounter [facility] [place], [place] [phone] Johnathon Braga DO [address] [place], [place] [phone] Raquel Huynh S, PT [place], [place] [address] Discharge Disposition: Home or Self Care (Routine [...] on file Legal Sex Male 11:26 AM PEDIATRIC GENETICIST Gender Identity Not on file Sexual Orientation Not on file COVID-19 Exposure Response Date Recorded In the last month, have you been in contact with someone who was confirmed or suspected to have Coronavirus / COVID-19? No / Unsure 12/24/2020 9:42 AM CDT documented as of this encounter Discharge Instructions * Patient Instructions* Raquel Huynh, PT - 12/24/2020 9:45 AM CDT Access Code: [email or web address]: [email or web address]/Date: 12/24/2020repared by: Raquel HuynhExcassie Lim Vestibular Exercise - 3 x daily - 1 sets - 3 reps documented in this encounter Medications at Time of Discharge fish oil 1000 MG Cap capsule Take by mouth 2 (two) times daily. hydrOXYzine 50 MG tablet Take by mouth every 8 (eight) hours as needed. 10/29/2020 Multiple Vitamins-Minerals ([facility]TR[facility] ADULTS OR) Take 1 tablet by mouth daily. testosterone cypionate 200 MG/ML injection Inject 1 mL (200 mg total) into the muscle every 21 days. 10/13/2020 vitamin D3, cholecalciferol, 1000 UNIT Tab tablet Take 2 tablets (2,000 Units total) by mouth daily. allopurinol 300 MG tabletIndications: Idiopathic gout, unspecified chronicity, unspecified site Take 1 tablet (300 mg total) by mouth daily. 90 tablet 1 11/20/2020 1 amiloride-hydrochl orothiazide 5-50 MG tablet 12/07/2020 2 atorvastatin 10 MG tablet nightly at bedtime. 10/03/2020 2 chlorthalidone 25 MG tabletIndications: Essential hypertension Take 1 tablet (25 mg total) by mouth daily. 30 tablet 2 10/31/2020 1 dextromethorphan-q uiNIDine 20-10 MG Cap capsule Take by mouth 2 (two) times a day. 3 divalproex EC 500 MG tablet 10/30/2020 1 donepezil 10 MG Tab 10/18/2020 3 modafinil 200 MG tablet Take 1 tablet (200 mg total) by mouth daily. 10/02/2020 3 venlafaxine 75 MG tablet Take 1 tablet (75 mg total) by mouth 2 (two) times daily with meals. 10/29/2020 3 documented as of this encounter Progress Notes * Raquel Huynh, PT - 12/24/2020 9:45 AM CDT PT/OT Vestibular Evaluation Diagnosis: Vertigo [R42] SNOMED CT(R) 1. Vertigo VERTIGO 2. Personal history of fall HISTORY OF FALL Personal Protective Equipment PPE Used During Visit: Therapist wore medical grade mask throughout session, Patient wore mask throughout session SUBJECTIVE Therapy Visit Visit Diagnosis: vertigo Referring Provider: genia Current Therapy Orders: eval & RX Precautions : OP PT precautions:hx of severe concussion 2017, cervical fusion 2017, ST disability due to concussion/fusion, HTN, tingling fingertips/toes, denies all other pertinent questions. Work Status: ST disability Subjective Note: On 12/03/20 fell 2-3 times that day. Family made him come to ED that day to be checked out. Several tests were done but nothing came up per patient. States he felt fine after ED visit and hasn'nick much trouble since then. Does report he has significant medical history including being disabled due to a fall at work in 2017 that resulted in a cervical fusion surgery and concussion. States hestill has difficulties from these. States some days he can read as much as he wants and some days he can only read a little bit before everything becomes a jumbled mess. See patient history for full detail. 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 Social Factors: lives w/, ranch w/ basement. Occupation/Work Place Deficits: likes to read, tries to do word puzzles, play guitar Relevant Comorbidities/ Personal Factors: (see above/patient history) Pain Other: denies any significant pain Review With Patient Patient stated goals for therapy: decrease episodes of dizziness/ off balance, falling Dizziness Symptoms Date of Onset: 12/03/20 Description of Dizziness: fogginess, off balance Dizziness Symptoms Current: 0/10 Dizziness Symptoms at best: 0/10 Dizziness Symptoms at worst: 10/10 Changes in Hearing: no Tinnitus: (no recent) Changes in Vision: (no recent changes, limited but unchanged) History of Headache or Migraine: (hx of RYDER but none in about 3 years) Reported Falls: yes, on day of ED admit, denies any since OBJECTIVE Posture Cervical: forward head Functional Mobility Transfers: Independent Bed mobility: Independent Gait: ambulates to PT department w/o Asst. device. Transitions sit to stand with good speed and stability. No significant deviations of gait or veering side to side with walking on level surface to PT treatment room, good blayne. Assistive Device: none CERVICAL ROM in Degrees Other (Comments): NT formally tested but appears at least 50-75% t/o, some extension tightness noted with Granville-Halpike testing Range of Motion General UE ROM: WFL General LE ROM: WFL Strength General UE Strength: Other (Comments)(not formally tested, moves all extremities against gravity) Dizziness handicap inventory Dizziness handicap inventory: 58/100 Dizziness handicap inventory (Min/Mod/Severe): moderate 40-69 Occulomotor exam Spontaneous nystagmus: Negative Gaze evoked nystagmus: Positive(horz end range) Ocular range of motion: Positive Ocular range of motion comments: WFL Smooth pursuit: Positive Smooth pursuit comments: (no c/o symptoms but decreased fluidity/ coordination) Dynamic Visual Acuity: decreased Positional Vestibular Exam Granville Hallpike to the left: Negative Return to sit: denies any synptoms Granville Hallpike to the right: Negative Return to sit: denies any symptoms Horizontal canal to the left: Negative Horizontal canal to the right: Negative ASSESSMENT Assessment Note: Mr. Bahena is referred with diagnosis of vertigo. On 12/03/20, he experience multiple falls and was taken to ED and released after testing. He has history of severe concussion and cervical fusion that has resulted in deficits and disability from his work. It is probable that he was suffering from BPPV on date of ED visit. He was tested this date for BPPV and it was negative in Bilateral posterior and horizontal canals. He and family member were educated in the vestibular system and things that can often trigger a BPPV episode. He was given a Rosado daroff exercise for use if acute symptoms return. Due to his prior deficits from concussion, it is likely that an acute episode of BPPV could affect him more significantly than another individual(without hx of concussion). Due to patient not currently describing any new deficits or functional decline, no further testing was performed. Therapy Diagnosis: off balance, visual coordination deficits likely due to prior severe concussion Problem List: Balance Difficulty( single day episodes repeated falling, probable BPPV) Vestibular Problem List: Dizziness, Impaired functional activities(probable prior BPPV that has nowspontaneuously resolved) Prognosis: Patient has multiple medical complications PT EVAL COMPLEXITY PT - Personal Factors/Comorbidities Impacting Care: 3-4 personal factors/comorbidities PT - Examination of Body Systems: High (at least 4 Elements) PT - Clinical Presentation of Patient: Unpredictable and unstable characteristics PT - Decision Making: High PT Eval High Complexity - Minutes - 66712: 45 Education Was Education Provided: Yes Topic: HEP, education on vestibular system, eval findings, how concussion can impact vestibular system Recipient: Patient, Other (Comments)(patient nephew) Method: Demonstration, Verbal, Written Response: Asked questions, Verbalized understanding Barriers: (short term memory deficits, possible cognitive deficits) PLAN Plan Treatments/Interventions: Self -Care/Home Management - 36899, Therapeutic Activities - 08054, Neuromuscular Re-education - 78504, Therapeutic Exercise - 09362, Manual Therapy - 87397, Physical performance test or measurement - 26788 Therapy Frequency: PRN Duration of treatment time: 4 weeks Plan For Next Session: hold therapy for now, patient to call if further dizziness symptoms arise over the next month to return for further testing. If no further requests for services by mid January 2021, then this note will equal DC. Instruction Provided Home Exercise Program: Meagan TREATMENT PROVIDED TODAY Timed Treatments Therapeutic Exercise Minutes - 55839: 15 Therapeutic Exercise - 54499: instruction in HEP, education Total Minutes: 15 Total Times Total Treatment Minutes: 15 Total Timed treatment Minutes: 15 Evaluation + Treatment = Total Time For Today's Visit: 60 Vestibular rehab could include the following: ?? Physical Performance Testing: Further BPPV and balance testing. ?? Neuromuscular reeducation: Progression of vestibular exercises including oculomotor and gaze stabilization exercises as appropriate, balance retraining. ?? Canalith repositioning. ?? Manual Therapy for cervical spine ?? Gait training for improved gait efficiency Functional deficits and goals: 1. Decreased knowledge of how to manage symptoms independently. GOAL: The patient to be independentwith symptom management with ADLs to be achieved in 4 weeks. 2. Dizziness: GOAL: Patient to score a 25% improvement on the Dizziness Handicap Inventory.. 3. If dizziness/falls re-occur, patient to return for further testing of dynamic balance to determine if further therapy is needed. THE PROVIDER, I AM IN AGREEMENT WITH THE STATED THERAPY PLAN OF CARE. Provider Signature: Date: In signing this document, provider certifies that prescribed rehabilitation is a medical necessity. Date: 12/27/2020 Patient Name: Wily Bahena Patient : 1955 Patient [facility] OUT[facility]IENT THERAPY [facility] [address] Dept: [phone] Dept Cosigned by Johnathon Braga DO at 12/30/2020 10:55 AM CDT documented in this encounter Plan of Treatment Upcoming Encounters Date Type Department Care Team (Late st Contact Info) Description 09/10/2024 11:30 AM PEDIATRIC GENETICIST Appointment [facility] [address] [place] [address] Zay Juárez [place] [address] [facility] [address] [place] [phone] 10/25/2024 9:20 AM PEDIATRIC GENETICIST Office Visit [facility] Family & Internal Medicine - [address] [phone] Johnathon Braga DO [facility]1 [place] [address] 11/21/2024 9:40 AM CDT Office Visit [facility] Multispecialty Care - [facility] 3 [facility], [address] [place] [phone] Sehlli Gonzalez MD 3 [place] [address] documented as of this encounter Visit Diagnoses Diagnosis Vertigo- Primary Dizziness and giddiness Personal history of fall documented in this encounter Additional Health Concerns Assessment Noted Time PHQ-9 Depression Total Score: 5 10/31/19 21 2:44 PM PEDIATRIC GENETICIST documented as of this encounter Care Teams Personal Banking Representative Relationship Specialty Start Date End Date Johnathon Braga DO [address] [place] [address] PCP - General FAMILY PRACTICE 10/31/20 documented as of this encounter
--- OUTSIDE RECORDS SUMMARY | 2024-09-03 07:53 | XMS_ITS | Encounter Summary ---
Author Organization [facility] Address [address] [place] [address]. [place], [place] [id number] [place] [address] Care Team Providers Care Hotel And Dining Room Cashier Name Role Phone Johnathon Braga DO Primary Care Provider + Reason for Visit * Reason Comments Image (SCAN) Encounter Details Date Type Department Care Team (Latest Contact Info) Description 03/12/2021 Scan HEALTH INFO SRVCS Scanned, Documents Image (SCAN) Social History Tobacco Use Types [...] on file Legal Sex Male 11:26 AM PROCESS VALIDATION ENGINEER Gender Identity Not on file Sexual Orientation Not on file documented as of this encounter Plan of Treatment Upcoming Encounters Date Type Department Care Team (Late st Contact Info) Description 09/10/2024 11:30 AM PROCESS VALIDATION ENGINEER Appointment [facility] [address] [place] [address] Zay [place] [address] [address] 10/25/2024 9:20 AM PROCESS VALIDATION ENGINEER Office Visit [facility] Family & Internal Medicine - [place] [address] [place] [address] Johnathon Braga DO [address] [place] [address] 11/21/2024 9:40 AM CDT Office Visit [facility] Multispecialty Care - [facility] 3 [facility], [address] [place] [address] Shelli Gonzalez MD 3 [place] [address] documented as of this encounter Procedures Procedure Name Priority Date/Time Associated Diagnosis Comments IMAGE GENERIC 03/12/2021 documented in this encounter Results * IMAGE GENERIC (03/12/2021) Anatomical Region Laterality Modality Other 03/12/2021 Narrative 03/12/2021 Ordered by an unspecified provider. us Documents Scanned SCANNING Final Result documented in this encounter Visit Diagnoses Not on filedocumented in this encounter Additional Health Concerns Assessment Noted Time PHQ-9 Depression Total Score: 5 10/31/19 21 2:44 PM PROCESS VALIDATION ENGINEER documented as of this encounter Care Teams Hotel And Dining Room Cashier Relationship Specialty Start Date End Date Johnathon Braga DO [address] [place] [address] PCP - General FAMILY PRACTICE 10/31/20 documented as of this encounter
--- OUTSIDE RECORDS SUMMARY | 2024-09-03 07:53 | XMS_ITS | Encounter Summary ---
Author Organization [facility] Address [address] [place] [address]. [place], [place] [address] [place] [address] Care Team Providers Care Regulatory Law Specialist Name Role Phone Johnathon Braga DO Primary Care Provider + Reason for Visit * Reason Comments Hypertension establish care Hyperlipidemia Encounter Details Date Type Department Care Team (Latest Contact Info) Description 10/31/2020 2:20 PM CHEF CONCIERGE Office Visit [facility] Family & Internal Medicine [facility] [address] [place] [phone] Johnathon Braga DO [address] [place], [place] [phone] Hypertension (establish care ); Hyperlipidemia Social History Tobacco Use Types Packs/Day Years [...] on file Legal Sex Male 11:26 AM CHEF CONCIERGE Gender Identity Not on file Sexual Orientation Not on file COVID-19 Exposure Response Date Recorded In the last month, have you been in contact with someone who was confirmed or suspected to have Coronavirus / COVID-19? No / Unsure 10/31/2020 2:18 PM CHEF CONCIERGE documented as of this encounter Last Filed Vital Signs Vital Sign Reading Time Taken Comments Blood Pressure 104/58 10/31/2020 2:29 PM CHEF CONCIERGE Pulse 83 10/31/2020 2:29 PM CHEF CONCIERGE Temperature 36.4 ??C (97.6 ??F) 10/31/2020 2:29 PM CS T Respiratory Rate 16 10/31/2020 2:29 PM CHEF CONCIERGE Oxygen Saturation 96% 10/31/2020 2:29 PM CHEF CONCIERGE Inhaled Oxygen Concentration - - Weight 98.6 kg (217 lb 4.8 oz) 10/31/2020 2:29 P M CHEF CONCIERGE Height 180.3 cm (5' 11 ) 10/31/2020 2:29 PM CHEF CONCIERGE Body Mass Index 30.31 10/31/2020 2:29 PM CHEF CONCIERGE documented in this encounter Progress Notes * Johnathon Braga, DO - 10/31/2020 2:20 PM CST Images from the original note were not included. GENERAL OFFICE VISIT Encounter Date: 10/31/2020 Chief Complaint: 65-year-old male presents for Hypertension ([facility] ) and Hyperlipidemia HPI: Patient presents for follow-up on essential hypertension. Patient has had hypertension for multipleyears. Current medications include Amiloride & HCTZ. Patient does take his/her blood pressure at home. Ranges are WNL. No side effects noted from medications. Concurrent conditions include Hyperlipidemia. Patient presents for follow-up on HLD. Patient has had HLD for multiple years. Current medications include atorvastatin. Current side effects include none. Patient does not need labs drawn today. Pt has hx of gout. Pt is on allopurinol at this time. He has not had recent issues with this. Pt has hx of hypogonadism. Pt is on testosterone therapy. Pt has seen urologist for this. Pt has postconcussive syndrome. He has seen Dr. Chow for this previously. He is needing to follow-up with them. He has anger issues, tremors, and memory issues. It takes pts notably longer to do simpletests. Pt has been seeing counseling and psychiatry. Pt has been seeing Dr. Last for psychiatry. Pt's depakote levels were decrease in July. He had it increased then as well as September. Pt was told to try CBD oil, but pt has to go in person to get it approved. Pt is on dextromorphan-quinidine as well to help likely with agitation. He will need to f/u with him in the near future. Review of Systems Constitutional: Negative for fever. Musculoskeletal: Negative for myalgias. Skin: Negative for rash. Psychiatric/Behavioral: See HPI Patient Active Problem List Diagnosis ??? Benign essential tremor ??? Calculus of kidney ??? Convergence insufficiency ??? Dizziness ??? Fall ??? Fatigue ??? Hypertension ??? Idiopathic gout ??? Postconcussion syndrome ??? Post-traumatic headache, not intractable ??? Syncope ??? Visual disturbance ??? Irritability and anger ??? Hypogonadism in male Past Medical History: Diagnosis Date ??? Dementia (CMS/HCC) ??? Excessive anger ??? Gout ??? Hypertension ??? Kidney stone ??? Loss of hearing ??? Numbness ??? Post-concussional syndrome Past Surgical History: Procedure Laterality Date ??? ANESTH,CERV SPINE,CORD SURGERY ??? HERNIA REPAIR 1970 ??? LITHOTRIPSY Family History Problem Relation Name [...] file Occupational History ??? Not on file Social Needs ??? Financial resource strain: Not on file ??? Food insecurity Worry: Not on file Inability: Not on file ??? Transportation needs Medical: Not on file Non-medical: Not on file Tobacco Use ??? Smoking status: Never Smoker ??? Smokeless tobacco: Never Used Substance and Sexual Activity ??? Alcohol use: Never Frequency: Never ??? Drug use: Never ??? Sexual activity: Not on file Lifestyle ??? Physical activity Days per week: Not on file Minutes per session: Not on file ??? Stress: Not on file Relationships ??? Social connections Talks on phone: Not on file Gets together: Not on file Attends jehovah's witness service: Not on file Active member of [...] Social History Narrative ??? Not on file Immunization History Administered Date(s) Administered ??? Td 05/04/2008 Current Outpatient Medications Medication Sig Dispense Refill ??? allopurinol 300 MG tablet ??? atorvastatin 10 MG tablet ??? chlorthalidone 25 MG tablet Take 1 tablet (25 mg total) by mouth daily. 30 tablet 2 ??? dextromethorphan-quiNIDine 20-10 MG Cap capsule Take by mouth 2 (two) times a day. ??? divalproex EC 500 MG tablet ??? donepezil 10 MG Tab ??? fish oil 1000 MG Cap capsule Take by mouth 2 (two) times daily. ??? hydrOXYzine 50 MG tablet ??? meclizine 25 MG tablet Take 25 mg by mouth 3 (three) times daily as needed. ??? modafinil 200 MG tablet ??? Multiple Vitamins-Minerals (CENTRUM ADULTS OR) Take 1 tablet by mouth daily. ??? primidone 50 MG tablet ??? testosterone cypionate 200 MG/ML injection ??? venlafaxine 75 MG tablet ??? vitamin D3, cholecalciferol, 1000 UNIT Tab tablet Take 1 tablet by mouth daily. No current facility-administered medications for this visit. Current Outpatient Medications on File Prior to Visit Medication Sig ??? dextromethorphan-quiNIDine 20-10 MG Cap capsule Take by mouth 2 (two) times a day. ??? fish oil 1000 MG Cap capsule Take by mouth 2 (two) times daily. ??? meclizine 25 MG tablet Take 25 mg by mouth 3 (three) times daily as needed. ??? Multiple Vitamins-Minerals (CENTRUM ADULTS OR) Take 1 tablet by mouth daily. ??? vitamin D3, cholecalciferol, 1000 UNIT Tab tablet Take 1 tablet by mouth daily. No current facility-administered medications on file prior to visit. Allergies Allergen Reactions ??? Carbamazepine Rash and Swelling Objective: Filed Vitals: 10/31/20 1429 BP: 104/58 Pulse: 83 Resp: 16 Temp: 97.6 ??F (36.4 ??C) TempSrc: Skin SpO2: 96% Weight: 98.6 kg (217 lb 4.8 oz) Height: 5' 11 (1.803 m) Physical Exam Constitutional: He is oriented to person, place, and time and well-developed, well-nourished, and in no distress. HENT: Head: Normocephalic and atraumatic. Right Ear: External ear normal. Left Ear: External ear normal. Eyes: Conjunctivae are normal. No scleral icterus. Neck: Neck supple. Cardiovascular: Normal rate, regular rhythm and normal heart sounds. Exam reveals no gallop and no friction rub. No murmur heard. Pulmonary/Chest: Effort normal and breath sounds normal. No respiratory distress. He has no wheezes. He has no rales. Abdominal: Soft. Bowel sounds are normal. There is no abdominal tenderness. Musculoskeletal: General: No edema. Neurological: He is alert and oriented to person, place, and time. Skin: Skin is warm and dry. No rash noted. Psychiatric: Mood and affect normal. Nursing note and vitals reviewed. Assessment & Plan: Wily was seen today for hypertension and hyperlipidemia. Diagnoses and all orders for this visit: Encounter to establish care with new doctor Essential hypertension - chlorthalidone 25 MG tablet; Take 1 tablet (25 mg total) by mouth daily. Postconcussion syndrome Idiopathic gout, unspecified chronicity, unspecified site Hyperlipidemia, unspecified hyperlipidemia type Irritability and anger BMI 30.0-30.9,adult - VITAMIN D, 25 OH; Future - VITAMIN D, 25 OH Fatigue, unspecified type - VITAMIN D, 25 OH; Future - TSH W/REFLEX; Future - VITAMIN B-12; Future - VITAMIN D, 25 OH - TSH W/REFLEX - VITAMIN B-12 Encounter for long-term (current) drug use - VALPROIC ACID; Future - VALPROIC ACID Hypogonadism in male Discussion/Summary: Will order labs as per above. Continue f/u with specialists as scheduled. Will switch pt to chlorthalidone for HTN. Discuss with neurologist regarding current tremor medications and psychiatrist for current psychiatric medications. Will have pt f/u in 1-3 months for reassessment. Pt and v/u. I spent 47 minutes today reviewing the patient's medical record, obtaining history, performing an exam, ordering medications, tests, and/or procedures, documenting in the medical record, referring and/or communicating with other health care providers, counseling and educating the patient/family/caregiver and reviewing and communicating test results. Johnathon Braga DO CONCIERGE * Johnathon Braga DO - 10/31/2020 2:20 PM CST Vitamin D is still low; recommend increase Vitamin D to 2000 IU daily. Pt's valproic acid level is still low. Needs to talk to psych about this and please send these results to pt's psychiatrist. otherwise labs are WNL. CONCIERGE documented in this encounter Plan of Treatment Upcoming Encounters Date Type Department Care Team (Late st Contact Info) Description 09/10/2024 11:30 AM CHEF CONCIERGE Appointment [facility] [address] [place], [place] [address] [place]ay [place] [address] [facility] [place] [address] [place] [phone] 10/25/2024 9:20 AM CHEF CONCIERGE Office Visit [facility] Family & Internal Medicine - [place] [id number] [place] [phone] Johnathon Braga DO [address] [place] [address] 11/21/2024 9:40 AM CDT Office Visit [facility] Multispecialty Care - [address], [address] [place] [phone] Shelli Gonzalez MD [address] [place] [phone] documented as of this encounter Procedures Procedure Name Priority Date/Time Associated Diagnosis Comments TSH W/REFLEX Routine 11/06/2020 1:33 PM CHEF CONCIERGE VITAMIN B-12 Routine 11/06/2020 1:33 PM CHEF CONCIERGE Fatigue, unspecified type VALPROIC ACID Routine 11/06/2020 1:33 PM CHEF CONCIERGE VITAMIN D, 25 OH Routine 11/06/2020 1:33 PM CHEF CONCIERGE Fatigue, unspecified type BMI 30.0-30.9,adult documented in this encounter Results * (ABNORMAL) VALPROIC ACID (11/06/2020 1:33 PM CHEF CONCIERGE) VALPROIC ACID <12.5(L) 50.0 - 100.0 mg/L [facility] Comment: Verified by repeat analysis. 11/06/2020 1:33 PM CHEF CONCIERGE 11/06/2020 1:37 PM CHEF CONCIERGE Johnathon Braga DO LABORATORY Final Re sult Performing Organization Address City/[facility]/ZIP Co de Phone Number [facility] [address] [place] [address] * TSH W/REFLEX (11/06/2020 1:33 PM CHEF CONCIERGE) TSH 1.02 0.40 - 4.50 mIU/L [facility] 11/06/2020 1:33 PM CHEF CONCIERGE 11/06/2020 1:37 PM CHEF CONCIERGE Johnathon Robertsonefjuana DO LABORATORY Final Re sult Performing Organization Address City/[facility]/ZIP Co de Phone Number [facility] [address] [place] [address] * VITAMIN B-12 (11/06/2020 1:33 PM CHEF CONCIERGE) VITAMIN B12 S/P/B 422 200 - 1,100 pg/mL [facility] 11/06/2020 1:33 PM CHEF CONCIERGE 11/06/2020 1:37 PM CHEF CONCIERGE Johnathon Braga DO LABORATORY Final Re sult [facility] [address] [facility] [place] [phone] * (ABNORMAL) VITAMIN D, 25 OH (11/06/2020 1:33 PM CHEF CONCIERGE) VITAMIN D 25 HYDROXY TOTAL S/P/B 24.0(L) >29.9 ng/mL [facility]. Comment: Vitamin D, 25-Hydroxy reports concentrations of [...] there is any concern. Dipak MF, Leonarda NC, Allan RYDER, et al. Evaluation, treatment, and prevention of vitamin D deficiency: an Endocrine Society clinical practice guideline. J Clin Endocrinol Metab. 2011;96(7):1911-30.This test is performed by a Liquid Chromatography-Tandem Mass Spectrometry (LC-MS/MS) method. This test was developed and its performance characteristics determined by the [employer]. It has not been cleared or approved by the U.S. FDA. The [employer]. is regulated under Clinical Laboratory Improvement Amendments [...] 2011;96(7):1911-30. VITAMIN D 25 HYDROXY D3 S/P/B 24.0 ng/mL [facility]. Comment: This test was developed and its analytical performance characteristics have been determined by [employer]. It has not been cleared or approved by the FDA. This assay has been validated pursuant to the CLIA regulations and is used for clinical purposes. VITAMIN D 25 HYDROXY D2 S/P/B <1.0(L) ng/mL [facility]. Comment: This test was developed and its analytical performance characteristics have been determined by [employer]. It has not been cleared or approved by the FDA. This assay has been validated pursuant to the CLIA regulations and is used for clinical purposes. 11/06/2020 1:33 PM CHEF CONCIERGE 11/06/2020 1:37 PM CHEF CONCIERGE Johnathon Braga DO LABORATORY Final Re sult [facility] [employer] [address], [address] [place] [address] documented in this encounter Visit Diagnoses Diagnosis Encounter to establish care with new doctor- Primary Other reasons for seeking consultation Essential hypertension Unspecified essential hypertension Postconcussion syndrome Idiopathic gout, unspecified chronicity, unspecified site Hyperlipidemia, unspecified hyperlipidemia type Irritability and anger Irritability BMI 30.0-30.9,adult Body Mass Index 30.0-30.9, adult Fatigue, unspecified type Encounter for long-term (current) drug use Encounter for long-term (current) use of other medications Hypogonadism in male documented in this encounter Additional Health Concerns Assessment Noted Time PHQ-9 Depression Total Score: 5 10/31/19 21 2:44 PM CHEF CONCIERGE documented as of this encounter Care Teams Regulatory Law Specialist Relationship Specialty Start Date End Date Johnathon Braga DO [address] [place] [phone] PCP - General FAMILY PRACTICE 10/31/20 documented as of this encounter
--- OUTSIDE RECORDS SUMMARY | 2024-09-03 07:53 | XMS_ITS | Encounter Summary ---
Author Organization [facility] Address [address] [place] [address]. [place], [place] [id number] [place] [address] Care Team Providers Care Assembler Clip On Sunglasses Name Role Phone Johnathon Braga Primary Care [...] on file Legal Sex Male 11:26 AM PRODUCT SUPPORT REP Gender Identity Not on file Sexual Orientation Not on file COVID-19 Exposure Response Date Recorded In the last month, have you been in contact with someone who was confirmed or suspected to have Coronavirus / COVID-19? No / Unsure 10/31/2020 2:18 PM PRODUCT SUPPORT REP documented as of this encounter Plan of Treatment Upcoming Encounters Date Type Department Care Team (Late st Contact Info) Description 09/10/2024 11:30 AM PRODUCT SUPPORT REP Appointment [facility] [address] [place] [address] [place]ay Juárez [place] [address] [phone] 10/25/2024 9:20 AM PRODUCT SUPPORT REP Office Visit [facility] Family & Internal Medicine - [place] [address] [place] [address] Johnathon Braga DO [address] [place] [address] 11/21/2024 9:40 AM CDT Office Visit [facility] Multispecialty Care - [facility] [address] [facility], [address] [place] [phone] Shelli Gonzalez MD [address] [place] [address] documented as of this encounter Procedures Procedure Name Priority Date/Time Associated Diagnosis Comments OUTSIDE LAB (SCAN ORDER) 09/19/2020 documented in this encounter Results * OUTSIDE LAB (SCAN) (09/19/2020) 09/19/2020 Narrative 09/19/2020 Ordered by an unspecified provider. us Documents Scanned SCANNING Final Result documented in this encounter Visit Diagnoses Not on filedocumented in this encounter Care Teams Assembler Clip [employer] Sunglasses Relationship Specialty Start Date End Date Johnathon Braga DO [address] [place] [phone] PCP - General FAMILY PRACTICE 10/31/20 documented as of this encounter
--- OUTSIDE RECORDS SUMMARY | 2024-09-03 07:53 | XMS_ITS | Encounter Summary ---
Author Organization [facility] Address [address] [place] [address]. [place], [place] [id number] [place] [address] Care Team Providers Care Clock Repair Technician Name Role Phone Johnathon Braga DO Primary Care Provider + Reason for Referral * Physical Medicine (Routine) - Closed Specialty Diagnoses / Procedures Referred By Jonah weber Referred To Contact PHYSICAL THERAPY / [facility] Physical Therapy Diagnoses Vertigo Johnathon Braga DO [address] [place] [address] Phone: tel: fax: [facility] [place] [address] Phone: tel: fax: Referral ID Status Reason Start Date Expiration Date V isits Requested Visits Authorized [id number] Closed Physical Therapy 12/04/2020 01/03/2022 10 10 Reason for Visit * Reason Comments ER F/U canniabas form Encounter Details Date Type Department Care Team (Late st Contact Info) Description 12/04/2020 2:40 PM CDT Office Visit [facility] Family & Internal Medicine - [place] [address] [place] [address] [place] [address] [place] [address] [phone] ER F/U (canniabas form ) Social History Tobacco Use Types Packs/Day [...] on file Legal 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 No / Unsure 12/04/2020 2:38 PM CDT documented as of this encounter Last Filed Vital Signs Vital Sign Reading Time Taken Comments Blood Pressure 140/62 12/04/2020 2:43 PM CDT Pulse 60 12/04/2020 2:43 PM CDT Temperature 36.2 ??C (97.2 ??F) 12/04/2020 2:43 PM C DT Respiratory Rate 20 12/04/2020 2:43 PM CDT Oxygen Saturation 96% 12/04/2020 2:43 PM CDT Inhaled Oxygen Concentration - - Weight 103.4 kg (228 lb) 12/04/2020 2:43 PM CDT Height 180.3 cm (5' 11 ) 12/04/2020 2:43 PM CDT Body Mass Index 31.8 12/04/2020 2:43 PM CDT documented in this encounter Progress Notes * Johnathon Braga, - 12/04/2020 2:40 PM CDT Images from the original note were not included. GENERAL OFFICE VISIT Encounter Date: 12/04/2020 Chief Complaint: 65-year-old male presents for ER F/U (canniabas form ) HPI: Pt presents with multiple issues. Pt was in ER yesterday for dizziness. Pt had extensive work-up including CT of head, EKG, CXR, and labs. All were negative for acute pathology. Pt has notable history of dizziness in the past. It wassuspected vertigo given his history. Pt's dizziness is better today. It is lingering, but better. Pt also has question about medical cannabis card. Pt's psych wanted him to get on CBD, but their previous form . They are needing this completed again today. Pt hasn't been able to schedule with his psychiatrist due to inability to contact them, nor has he been able to see neurology due to being told [patient] didn't need to be seen. Available documentation in Care Everywhere shows that pt is overdue for visit at this time. Review of Systems Constitutional: Negative for fever. Respiratory: Negative for shortness of breath. Cardiovascular: Negative for chest pain. Neurological: See HPI Psychiatric/Behavioral: See HPI Patient [...] file Gets together: Not on file Attends confucianism service: Not on file Active member of [...] Immunization History Administered Date(s) Administered ? ? [employer]ol[employer] ([place]) COVID-19 AD26 VACCINE 0.5 ML IM SUSP 11/22/2020 ??? Td 05/04/2008 Current Outpatient Medications Medication Sig Dispense Refill ??? allopurinol 300 MG tablet Take 1 tablet (300 mg total) by mouth daily. 90 tablet 1 ??? atorvastatin 10 MG tablet nightly at bedtime. ??? chlorthalidone 25 MG tablet Take 1 [...] meclizine 25 MG tablet Take 1 tablet (25 mg total) by mouth 3 (three) times daily as needed. 30tablet 0 ??? modafinil 200 MG tablet ??? Multiple Vitamins-Minerals (CENTRUM ADULTS OR) Take 1 tablet by mouth daily. ??? testosterone cypionate 200 MG/ML injection ??? venlafaxine 75 MG tablet ??? vitamin D3, cholecalciferol, 1000 UNIT Tab tablet Take 2,000 Units by mouth daily. No current facility-administered medications for this visit. Current Outpatient Medications on File Prior to Visit Medication Sig ??? allopurinol 300 MG tablet Take 1 tablet (300 mg total) by mouth daily. ??? atorvastatin 10 MG tablet nightly at bedtime. ??? chlorthalidone 25 MG tablet Take 1 tablet (25 mg total) by mouth daily. ??? dextromethorphan-quiNIDine 20-10 MG Cap capsule Take by mouth 2 (two) times a day. ??? divalproex EC 500 MG tablet ??? donepezil 10 MG Tab ??? fish oil 1000 MG Cap capsule Take by mouth 2 (two) times daily. ??? hydrOXYzine 50 MG tablet ??? meclizine 25 MG tablet Take 1 tablet (25 mg total) by mouth 3 (three) times daily as needed. ??? modafinil 200 MG tablet ??? Multiple Vitamins-Minerals (CENTRUM ADULTS OR) Take 1 tablet by mouth daily. ??? testosterone cypionate 200 MG/ML injection ??? venlafaxine 75 MG tablet ??? vitamin D3, cholecalciferol, 1000 UNIT Tab tablet Take 2,000 Units by mouth daily. No current facility-administered medications on file prior to visit. Allergies Allergen Reactions ??? Carbamazepine Rash and Swelling Objective: Filed Vitals: 12/04/20 1443 BP: 140/62 Pulse: 60 Resp: 20 Temp: 97.2 ??F (36.2 ??C) TempSrc: Oral SpO2: 96% Weight: 103.4 kg (228 lb) Height: 5' 11 (1.803 m) Physical Exam Constitutional: He is well-developed, well-nourished, and in no distress. HENT: Head: Normocephalic and atraumatic. Right Ear: External ear normal. Left Ear: External ear normal. Eyes: Conjunctivae are normal. Cardiovascular: Normal rate, regular rhythm and normal heart sounds. Exam reveals no gallop and no friction rub. No murmur heard. Pulmonary/Chest: Effort normal and breath sounds normal. No respiratory distress. He has no wheezes. He has no rales. Abdominal: Soft. Bowel sounds are normal. There is no abdominal tenderness. Neurological: No focal deficits Skin: Skin is warm and dry. No rash noted. Psychiatric: Similar to previous Nursing note and vitals reviewed. Assessment & Plan: Wily was seen today for er f/u. Diagnoses and all orders for this visit: Vertigo - Ambulatory referral to Physical Therapy Postconcussion syndrome PTSD (post-traumatic stress disorder) Discussion/Summary: Suspect symptoms are vertigo or recurrence of patient's postconcussive syndrome. Continue meclizineas needed and will place referral to physical therapy for vestibular treatment if symptoms continueat current severity, although they are improved on today's exam. Continue follow-up with both neurology and psychiatry; we will reach out to their offices to expedite care. Discussed risk and benefits of CBD treatments and medical cannabis. Noted to patient that these are loosely regulated and are not actively prescribed by any provider. Given his patient psychiatrist request to have this form completed and evidence of previous PCP completing form as well, we will complete today. Follow-up with regular appointment already scheduled for next month with myself. Patient and verbalized understanding. I spent 48 minutes today reviewing the patient's medical record, obtaining history, performing an exam, ordering medications, tests, and/or procedures, documenting in the medical record, counseling and educating the patient/family/caregiver, reviewing and communicating test results and coordinationof care. Johnathon Braga DO documented in this encounter Plan of Treatment Upcoming Encounters Date Type Department Care Team (Late st Contact Info) Description 09/10/2024 11:30 AM SUPERVISOR INTELLIGENCE ANALYST Appointment [facility] [address] [place] [address] Zay Juá[place] [address] [address] 10/25/2024 9:20 AM SUPERVISOR INTELLIGENCE ANALYST Office Visit [facility] Family & Internal Medicine - [address] [phone] Johnathon Braga DO [address] [place] [address] 11/21/2024 9:40 AM CDT Office Visit [facility] Multispecialty Care - [facility] [address] [facility], [address] [place] [address] Shelli Gonzalez MD [address] [place] [address] Scheduled Referrals Name Type Priority Associated Diagnoses Orde r Schedule Ambulatory referral to Physical Therapy Referral Routine Vertigo Ordered: 12/04/2020 documented as of this encounter Visit Diagnoses Diagnosis Vertigo- Primary Dizziness and giddiness Postconcussion syndrome PTSD (post-traumatic stress disorder) Posttraumatic stress disorder documented in this encounter Additional Health Concerns Assessment Noted Time PHQ-9 Depression Total Score: 5 10/31/19 21 2:44 PM SUPERVISOR INTELLIGENCE ANALYST documented as of this encounter Care Teams Clock Repair Technician Relationship Specialty Start Date End Date Johnathon Braga DO [address] [place] [address] PCP - General FAMILY PRACTICE 10/31/20 documented as of this encounter
--- OUTSIDE RECORDS SUMMARY | 2024-09-03 07:53 | XMS_ITS | Encounter Summary ---
Author Organization [facility] Address [address] [place] [address]. [place], [place] [id number] [place] [address] Care Team Providers Care Search Advertising Strategist Name Role Phone Johnathon Braga Timbo SHELTON Primary Care Provider + Reason for Visit * Reason Onset Date Comments Question 06/17/2022 Encounter Details Date Type Department Care Team (Late st Contact Info) Description 06/17/2022 Telephone [facility] Medical [facility] Multispecialty Care - [facility] [address] [facility], [address] [place] [address] Giuseppe Da Silva MD [address] [place] [address] Question Social History Tobacco Use Types Packs/Day [...] on file 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 verbalized understanding, * Max Jesusita Sheth - 06/17/2022 2:56 PM CDT Pt's called today, wanting to know if she should have a list of meds is taking, any test, etc, pls call and advise he will be here Wednesday 06/20 as a new pt. documented in this encounter Plan of Treatment Upcoming Encounters Date Type Department Care Team (Late st Contact Info) Description 09/10/2024 11:30 AM LODGING HOUSE KEEPER Appointment [facility] [address] [place], [place] [id number] Zay Juárez [place] [address] [address] 10/25/2024 9:20 AM LODGING HOUSE KEEPER Office Visit [facility] Medical Group Family & Internal Medicine - [place] [address] [place] [address] Johnathon Braga DO [address] [place] [address] 11/21/2024 9:40 AM CDT Office Visit [facility] Multispecialty Care - [address], [address] [place] [phone] Shelli Gonzalez MD [address] [place] [address] documented as of this encounter Visit Diagnoses Not on filedocumented in this encounter Additional Health Concerns Assessment Noted Time PHQ-9 Depression Total Score: 5 10/31/19 21 2:44 PM LODGING HOUSE KEEPER documented as of this encounter Care Teams Search Advertising Strategist Relationship Specialty Start Date End Date Johnathon Braga DO [address] [place] [address] PCP - General FAMILY PRACTICE 10/31/20 documented as of this encounter
--- OUTSIDE RECORDS SUMMARY | 2024-09-03 07:53 | XMS_ITS | Encounter Summary ---
Author Organization [facility] Address [address] [place] [address]. 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 Gender Identity Not on file Sexual Orientation Not on file documented as of this encounter Plan of Treatment Upcoming Encounters Date Type Department Care Team (Late st Contact Info) Description 09/10/2024 11:30 AM ENVIRONMENTAL HEALTH SANITARIAN Appointment [facility] [place] [address] [place] [address] Zay Juárez [place] [address] [address] 10/25/2024 9:20 AM ENVIRONMENTAL HEALTH SANITARIAN Office Visit [facility] Family & Internal Medicine - [place] [address] [place] [address] Johnathon Braga DO [address] [place] [address] 11/21/2024 9:40 AM CDT Office Visit [facility] Multispecialty Care - [facility] [address] [facility], [address] [place] [address] Shelli Gonzalez MD [address] [place] [address] documented as of this encounter Procedures Procedure Name Priority Date/Time Associated Diagnosis Comments IMAGE GENERIC 01/15/2023 documented in this encounter Results * IMAGE GENERIC (01/15/2023) Anatomical Region Laterality Modality Other 01/15/2023 [facility] Scanned SCANNING Final Resu lt documented in this encounter Visit Diagnoses Not on filedocumented in this encounter Additional Health Concerns Assessment Noted Time PHQ-9 Depression Total Score: 5 10/31/19 21 2:44 PM ENVIRONMENTAL HEALTH SANITARIAN documented as of this encounter Care Teams Online Communications Specialist Relationship Specialty Start Date End Date Johnathon Braga DO [address] [place] [address] PCP - General FAMILY PRACTICE 10/31/20 documented as of this encounter
--- OUTSIDE RECORDS SUMMARY | 2024-09-03 07:53 | XMS_ITS | Encounter Summary ---
Author Organization [facility] Address [address] [place] [address]. [place], [place] [id number] [place] [id number] Care Team Providers Care Sewer Connector Name Role Phone Krisreuben Johnathon Timbo SHELTON Primary Care Provider + Reason for Referral * Imaging (Emergency) - Closed Specialty Diagnoses / Procedures Referred By Jonah weber Referred To Contact RADIOLOGY Procedures CT HEAD WO CON Alicja Guerra PA-C [address] [address] Phone: tel: fax: Referral ID Status Reason Start Date Expiration Date Visits Re quested Visits Authorized [id number] Closed 12/03/2020 01/03/2022 1 1 Reason for Visit * Reason Comments Dizziness Encounter Details Date Type Department Care Team (Late st Contact Info) Description 12/03/2020 1:14 PM CDT - 12/03/2020 5:06 PM CDT Emergency [facility] [place] [address] Alicja Guerra PA-C [address] [address] Dizziness Discharge Disposition: Home or Self Care (Routine [...] on file Legal Sex Male 11:26 AM CIRCUIT WALKER Gender Identity Not on file Sexual Orientation Not on file COVID-19 Exposure Response Date Recorded In the last month, have you been in contact with someone who was confirmed or suspected to have Coronavirus / COVID-19? No / Unsure 12/03/2020 12:47 PM CDT documented as of this encounter Last Filed Vital Signs Vital Sign Reading Time Taken Comments Blood Pressure 136/88 12/03/2020 5:05 PM CDT Pulse 58 12/03/2020 3:00 PM CDT Temperature 36.9 ??C (98.4 ??F) 12/03/2020 12:55 PM C DT Respiratory Rate 18 12/03/2020 5:05 PM CDT Oxygen Saturation 95% 12/03/2020 5:05 PM CDT Inhaled Oxygen Concentration - - Weight 99.8 kg (220 lb) 12/03/2020 12:55 PM CDT Height 180.3 cm (5' 11 ) 12/03/2020 12:55 PM CDT Body Mass Index 30.68 12/03/2020 12:55 PM CDT documented in this encounter Discharge Instructions * Discharge Instructions* Alicja Guerra PA-C - 12/03/2020 4:21 PM CDT Rest and increase fluids. Avoid sudden positional changes. Use caution when standing or moving about. If you feel dizzy, then sit or lie down to avoid injury. Continue all chronic home medications. Take meclizine as prescribed for dizziness. Practice vestibular exercises as directed. Follow-up closely with your primary doctor tomorrow to further discuss vertigo. Return to the emergency room if new or worsening symptoms. * Attachments The following attachments cannot be sent through Care Everywhere. * Vertigo (a Type of Dizziness) Discharge Instructions (Maldivian) * Vestibular Exercises (Maldivian) documented in this encounter Medications at Time [...] mouth daily. 90 tablet 1 11/20/2020 1 atorvastatin 10 MG tablet nightly at bedtime. 10/03/2020 2 chlorthalidone 25 MG tabletIndications: Essential hypertension Take 1 tablet (25 mg total) by mouth daily. 30 tablet 2 10/31/2020 1 dextromethorphan-q uiNIDine 20-10 MG Cap capsule Take by mouth 2 (two) times a day. 3 divalproex EC 500 MG tablet 10/30/2020 1 donepezil 10 MG Tab 10/18/2020 3 meclizine 25 MG tablet Take 1 tablet (25 mg total) by mouth 3 (three) times daily as needed. 30 tablet 12/03/2020 1 modafinil 200 MG tablet Take 1 tablet (200 mg total) by mouth daily. 10/02/2020 3 primidone 50 MG tablet 09/12/2020 1 venlafaxine 75 MG tablet Take 1 tablet (75 mg total) by mouth 2 (two) times daily with meals. 10/29/2020 3 documented as of this encounter ED Notes * Alicja Guerra PA-C - 12/03/2020 2:31 PM CDTSummary: dizzy ED NOTE Wily Bahena 1955 Chief Complaint Chief Complaint Patient presents with ??? Dizziness History of Present Illness 65-year-old white male patient presents to the emergency room with the assistance of his family forcomplaints of dizziness and room spinning. He states that he is very off balance and is having trouble standing or walking as such. Symptoms started this morning when he stood up. Symptoms have not went away ever since standing. He does report a previous history of vertigo, however has not had issues with it for a couple of years . He took meclizine this morning without relief. He denies headache, facial droop, visual changes, focal weakness, confusion, chest pain, shortness of breath, nausea,vomiting. His and children had to help him into the car in order to get him to the hospital today. No history of stroke reported. Patient has dealt with intermittent headache, postconcussive symptoms, vertigo ever since head injury suffered in 2016 and where he fell backwards and struck his head against concrete. Medical History ALLERGIES: Allergies Allergen Reactions ??? Carbamazepine Rash and Swelling MEDICATIONS: Prior to Admission medications Medication Sig Start Date End Date Taking? Authorizing Provider meclizine 25 MG tablet Take 1 tablet (25 mg total) by mouth 3 (three) times daily as needed. 12/03/20 12/13/20 Yes Alicja Guerra PA-C allopurinol 300 MG tablet Take 1 tablet (300 mg total) by mouth daily. 11/20/20 Johnathon Braga,DO atorvastatin 10 MG tablet 10/03/20 Doc Abstract chlorthalidone 25 MG tablet Take 1 tablet (25 mg total) by mouth daily. 10/31/20 Johnathon Braga, DO dextromethorphan-quiNIDine 20-10 MG Cap capsule Take by mouth 2 (two) times a day. Doc Abstract divalproex EC 500 MG tablet 10/30/20 Doc Abstract donepezil 10 MG Tab 10/18/20 Doc Abstract fish oil 1000 MG Cap capsule Take by mouth 2 (two) times daily. Doc Abstract hydrOXYzine 50 MG tablet 10/29/20 Doc Abstract modafinil 200 MG tablet 10/02/20 Doc Abstract Multiple Vitamins-Minerals (CENTRUM ADULTS OR) Take 1 tablet by mouth daily. Doc Abstract primidone 50 MG tablet 09/12/20 Doc Abstract testosterone cypionate 200 MG/ML injection 10/13/20 Doc Abstract venlafaxine 75 MG tablet 10/29/20 Doc Abstract vitamin D3, cholecalciferol, 1000 UNIT Tab tablet Take 1 tablet by mouth daily. Doc Abstract PAST MEDICAL HISTORY: Past Medical History: Diagnosis Date ??? Dementia (CMS/HCC) ??? Excessive anger ??? Gout ??? Hypertension ??? Kidney stone ??? Loss of hearing ??? Numbness ??? Post-concussional syndrome ??? Tremor PAST SURGICAL HISTORY: Past Surgical History: Procedure Laterality Date ??? ANESTH,CERV SPINE,CORD SURGERY ??? HERNIA REPAIR 1971 ??? LITHOTRIPSY FAMILY HISTORY: Family History Problem Relation Name Age of Onset ??? Cancer Mother ??? Liver Disease Father ??? No Known Problems Sister ??? Prostate Cancer Brother SOCIAL HISTORY: Social History Tobacco Use ??? Smoking status: Never Smoker ??? Smokeless tobacco: Never Used Substance Use Topics ??? Alcohol use: Never Frequency: Never ??? Drug use: Never Review of Systems Review of Systems Constitutional: Negative for activity change, appetite change, fever and unexpected weight change. HENT: Negative for congestion, ear discharge, ear pain, facial swelling, hearing loss, sinus pressure, sinus pain, sore throat and trouble swallowing. Eyes: Negative. Respiratory: Negative for cough, chest tightness and shortness of breath. Cardiovascular: Negative for chest pain, palpitations and leg swelling. Gastrointestinal: Negative for abdominal distention, abdominal pain, constipation, diarrhea, nauseaand vomiting. Endocrine: Negative. Genitourinary: Negative for dysuria, flank pain and hematuria. Musculoskeletal: Negative for arthralgias, back pain, myalgias and neck pain. Skin: Negative for color change, rash and wound. Allergic/Immunologic: Negative for immunocompromised state. Neurological: Positive for dizziness (with room spinning and pt feeling off balance). Negative for tremors, seizures, syncope, facial asymmetry, speech difficulty, weakness, light-headedness, numbness and headaches. Hematological: Negative for adenopathy. Psychiatric/Behavioral: Negative. Physical Exam Filed Vitals: 12/03/20 1417 12/03/20 1420 12/03/20 1430 12/03/20 1500 BP: 135/81 150/84 (!) 130/93 (!) 151/77 Pulse: 55 56 54 58 Resp: 12 17 Temp: TempSrc: SpO2: 93% 95% Weight: Height: Physical Exam Vitals signs and nursing note reviewed. Exam conducted with a media specialist present. Constitutional: General: He is not in acute distress. Appearance: Normal appearance. He is well-developed. He is not ill-appearing, toxic-appearing or diaphoretic. Comments: Pt is noted per staff to have unsteady gait when stood up HENT: Head: Normocephalic and atraumatic. Right Ear: Tympanic membrane, ear canal and external ear normal. Left Ear: Tympanic membrane, ear canal and external ear normal. Ears: Comments: Patient having obvious worsening of dizziness symptoms with movement of his head during exam Nose: Nose normal. No congestion or rhinorrhea. Mouth/Throat: Mouth: Mucous membranes are moist. Pharynx: Oropharynx is clear. Eyes: Extraocular Movements: Extraocular movements intact. Conjunctiva/sclera: Conjunctivae normal. Pupils: Pupils are equal, round, and reactive to light. Neck: Musculoskeletal: Normal range of motion and neck supple. No neck rigidity. Thyroid: No thyromegaly. Vascular: No carotid bruit. Trachea: No tracheal deviation. Cardiovascular: Rate and Rhythm: Normal rate and regular rhythm. Pulses: Normal pulses. Heart sounds: Normal heart sounds. No murmur. No friction rub. No gallop. Pulmonary: Effort: Pulmonary effort is normal. No respiratory distress. Breath sounds: Normal breath sounds. Abdominal: General: Abdomen is flat. Bowel sounds are normal. There is no distension. Palpations: Abdomen is soft. There is no mass. Tenderness: There is no abdominal tenderness. There is no guarding or rebound. Hernia: No hernia is present. Musculoskeletal: Normal range of motion. General: No swelling, tenderness, deformity or signs of injury. Right lower leg: No edema. Left lower leg: No edema. Lymphadenopathy: Cervical: No cervical adenopathy. Skin: General: Skin is warm and dry. Capillary Refill: Capillary refill takes less than 2 seconds. Findings: No rash. Neurological: General: No focal deficit present. Mental Status: He is alert and oriented to person, place, and time. Cranial Nerves: No cranial nerve deficit. Sensory: No sensory deficit. Motor: No weakness. Coordination: Coordination normal. Gait: Gait normal. Deep Tendon Reflexes: Reflexes normal. Comments: Negative maknwe-eg-vass and raxk-st-civz. No signs of central deficit Psychiatric: Mood and Affect: Mood normal. Behavior: Behavior normal. Thought Content: Thought content normal. Judgment: Judgment normal. Diagnostic Studies / Procedures ELECTROCARDIOGRAMS: Results for orders placed or performed during the hospital encounter of 12/03/20 [address] 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 Meats: : 1955 Requested By: ALICJA GUERRA Order Number: [id number] Reading MD: Measurements Intervals [place] Rate: 62 P: -43 IN: 130 QRS: 13 QRSD: 84 T: 44 QT: 421 QTc: 429 Interpretive Statements SINUS RHYTHM No previous ECG available for comparison EKG interpreted as sinus rhythm, rate 62, no ischemic changes, no ectopy LABORATORY STUDIES: Results for orders placed or performed during the hospital encounter of 12/03/20 CBC W/DIFF AUTOMATED Result Value Ref Range WBC 8.3 4.5 - 11.0 x10'3/uL RBC 5.10 4.70 - 6.10 x10'6/uL HGB 15.9 14.0 - 18.0 G/DL HCT 47.6 43.0 - 54.0 % MCV 93.3 80.0 - 94.0 FL MCH 31.2 (H) 27.0 - 31.0 PG MCHC 33.4 32.0 - 36.0 G/DL RDW 13.5 11.5 - 14.5 % PLT 150 130 - 400 x10'3/uL MPV 11.1 9.3 - 12.2 FL DIFFERENTIAL TYPE AUTOMATED DIFFERENTIAL NEUTROPHILS 65.8 % LYMPHOCYTES 22.9 % MONOCYTES 7.3 % EOSINOPHILS 2.7 % BASOPHILS 0.8 % IMMATURE GRANS 0.5 % ABS. NEUTROPHILS TOTAL 5.46 1.80 - 7.70 x10'3/uL ABS. LYMPHOCYTES 1.90 1.00 - 4.80 x10'3/uL ABS. MONOCYTES 0.61 0.30 - 0.82 x10'3/uL ABS. EOSINOPHILS 0.22 0.04 - 0.54 x10'3/uL ABS. BASOPHILS 0.07 0.01 - 0.08 x10'3/uL ABS. IMMATURE GRANULOCYTES 0.04 0.00 - 0.49 x10'3/uL COMPREHENSIVE METABOLIC PANEL Result Value Ref Range GLUCOSE 86 70 - 99 MG/DL BUN 12 7 - 18 MG/DL CREATININE S/P/B 0.91 0.7 - 1.3 MG/DL SODIUM 140 136 - 145 MMOL/L POTASSIUM 3.6 3.5 - 5.1 MMOL/L CHLORIDE S/P/B 107 100 - 108 MMOL/L CO2 30.3 21 - 32 MMOL/L CALCIUM 8.9 8.5 - 10.1 MG/DL BILIRUBIN TOTAL S/P/B 0.5 0.2 - 1.2 MG/DL TOTAL PROTEIN S/P/B 7.2 6.4 - 8.2 G/DL ALBUMIN S/P/B 3.6 3.4 - 5.0 G/DL AST 23 15 - 37 U/L ALT 29 16 - 60 U/L ALKALINE PHOSPHATASE S/P/B 134 50 - 136 U/L ANION GAP 2.7 (L) 5 - 15 MMOL/L BUN CREATININE RATIO 13.2 6 - 26 A/G RATIO 1.0 1.0 - 2.0 RATIO eGFR Non-Afr. Amer. 89 (L) >90 ML/MIN/1.73 M2 eGFR Afr. Amer. >90 >90 ML/MIN/1.73 M2 TROPONIN, QUANT Result Value Ref Range TROPONIN I <0.015 <0.045 ng/mL. TSH W/REFLEX Result Value Ref Range TSH 1.110 0.358 - 3.74 uIU/ML MAGNESIUM Result Value Ref Range MAGNESIUM 2.1 1.8 - 2.4 MG/DL IMAGING STUDIES CT HEAD WO CON Final Result by User, [id number] (12/03 1540) EXAMINATION: CT of the head without contrast EXAM DATE/TIME: 12/03/2020 3:22 PM REASON FOR EXAM: Headache, dizziness. COMPARISON: None. TECHNIQUE: No contrast. Automated exposure control was utilized for dose reduction. FINDINGS: No acute intracranial hemorrhage, parenchymal mass or midline shift. Dural membranes are somewhat dense but otherwise uniform and symmetric. Nonspecific focal dural thickening superiorly along the falx. Tiny intracranial lipoma along the sagittal dural sinus. Minimal age commensurate atrophy with slight prominence of the sulci in the frontal and parietal regions. Question minimal white matter gliosis. Villagomez-white matter differentiation is well preserved. Deep nuclei and insular cortices are well-defined. Brainstem is somewhat obscured by artifact at the level of the skull base. Minimal mucosal thickening in the ethmoid sinuses. Paranasal sinuses and mastoid air cells are otherwise clear. No acute fracture or destructive bone lesion. =====IMPRESSION:===== No acute findings. Referred By: ALICJA GUERRA Interpreted By: Chito Morales MD, 12/03/2020 3:32 PM XR CHEST PORTABLE Final Result by User, [id number] (12/03 1348) Date: 12/03/2020 1:23 PM Exam: XR CHEST PORTABLE Comparison: No comparisons. Technique: Single view chest. History: Vertigo. Dizziness. Findings: The cardiac silhouette is normal in size. There is slight central vascular congestion. There are increased interstitial markings in the lower lungs possibly artifactual, interstitial pneumonitis, interstitial edema. There are no consolidations nor effusions. There is no pneumothorax. There is a calcified granuloma in the lingula. There is fusion hardware in the lower cervical spine. Impression: 1. Subjective slight central vascular congestion. 2. Increased interstitial markings in the lower lungs possibly artifactual, interstitial edema, interstitial pneumonitis. Referred By: Interpreted By: Chito Toribio MD, 12/03/2020 1:46 PM ED Course / Medical Decision Making MDM Number of Diagnoses or Management Options Amount and/or Complexity of Data Reviewed Clinical lab tests: ordered and reviewed Tests in the radiology section of CPT??: ordered and reviewed Tests in the medicine section of CPT??: ordered and reviewed Orthostatic vital signs negative. 16:15-no acute distress, vital signs stable, afebrile. No hypotension or tachycardia noted. No pertinent cardiopulmonary findings on exam. Heart sounds normal with regular rate and rhythm. Lungs clear bilaterally. No neuro focal deficits to indicate central deficit or lesion. ENT unremarkable. Dizziness is exacerbated with head movements. Suspect vertigo, and potential exacerbation of previous head injury/concussion syndrome. Labs unremarkable for acute concern including troponin, magnesium, thyroid, hematology, chemistry. EKG without acute ischemia or concerning abnormal arrhythmia. No arrhythmia noted per physical exam or design painter. CT head negative for acute concern. Chest x-ray neg ative for acute concern. Patient feeling better after IV fluids, Zofran, Ativan. Will discharge home with meclizine prescription. Patient does have multiple family members to help assist him. He has primary care follow-up tomorrow. Medications ondansetron (ZOFRAN) injection 4 mg (4 mg Intravenous Given 12/03/20 1408) sodium chloride 0.9% bolus infusion SOLN 1,000 mL (0 mLs Intravenous Infusion Stop Time 12/03/20 1458) LORazepam (ATIVAN) injection 1 mg (1 mg Intravenous Given 12/03/20 1411) Clinical Impression Vertigo (Primary) Current Discharge Medication List Disposition: Discharge Follow-Up: Johnathon Braga DO Formerly named [facility] [address] Go in 1 day ALICJA GUERRA PA-C 12/03/2020 Alicja Guerra PA-C 12/03/20 1621 Cosigned by Chito Baxter MD at 12/04/2020 8:15 AM CDT * Emerald Ngo RN - 12/03/2020 1:45 PM CDT Pt diaphoretic, PA informed, vs taken, no cp, no sob, + dz, * Alicja Guerra PA-C - 12/03/2020 1:05 PM CDTSummary: dizzy [place], [place] EMERGENCY DEPARTMENT ENCOUNTER Medical Screening Examination 12/03/20 1:05 PM Chief Complaint : Dizziness HPI : Wily Bahena is a 65-year-old male who presents c/o dizziness when he stood up this AM. Sx haven't went away since. Hx vertigo; meclizine Rx not helping. Denies CP, SOB, N/V, RYDER, focal weakness. Vital Signs: Filed Vitals: 12/03/20 1255 BP: (!) 155/93 Pulse: 64 Resp: 18 Temp: 98.4 ??F (36.9 ??C) TempSrc: Oral SpO2: 96% Weight: 99.8 kg (220 lb) Height: 5' 11 (1.803 m) Physical exam: A brief physical exam was completed to facilitate/expedite patient care. Levy findings include: stable Plan: cardiac w/u ALICJA GUERRA PA-C 12/03/2020 Alicja Guerra PA-C 12/03/20 1306 Cosigned by Chito Baxter MD at 12/03/2020 2:27 PM CDT * Alicja Holly RN - 12/03/2020 12:48 PM CDT Pt to triage via wheelchair with complaint of dizziness that began after standing up about 08:30 this morning and has not resolved. Pt has Rx for meclizine that has not relieved symptoms. Pt notes similar episode about 1 year ago that resolved on it's own after about 4 hours. Denies NVD, cough, fever, sore throat, numbness, or tingling. Describes as a feeling of lightheadedness. Denies spinning sensation. documented in this encounter Plan of Treatment Upcoming Encounters Date Type Department Care Team (Late st Contact Info) Description 09/10/2024 11:30 AM CIRCUIT WALKER Appointment [facility] [address] [place] [address] Zay Juárez [place] [address] [place] [address] 10/25/2024 9:20 AM CIRCUIT WALKER Office Visit [facility] Family & Internal Medicine - [place] [address] [place] [address] Johnathon Braga DO [address] [place] [address] 11/21/2024 9:40 AM CDT Office Visit [facility] Multispecialty Care - [facility] [address] [facility], [address] [place] [phone] Shelli Gonzalez MD [address] [place] [address] documented as of this encounter Procedures Procedure Name Priority Date/Time Associated Diagnosis Comments CT HEAD WO CON STAT 12/03/2020 3:26 PM CDT HC URINALYSIS AUTO W/O MICRO STAT 12/03/2020 3:18 PM CDT XR CHEST PORTABLE STAT 12/03/2020 1:4 0 PM CDT TSH W/REFLEX STAT 12/03/2020 1:34 PM CDT COMPREHENSIVE METABOLIC PANEL STAT 12/03/2020 1:34 PM CDT CBC W/DIFF AUTOMATED STAT 12/03/2020 1:34 PM CDT TROPONIN, QUANT STAT 12/03/2020 1:34 PM CDT MAGNESIUM STAT 12/03/2020 1:34 PM CDT ECG 12-LEAD Routine 12/03/2020 1:26 PM CDT documented in this encounter Results * CT HEAD WO CON (12/03/2020 3:26 PM CDT) Anatomical Region Laterality Modality Head Computed Tomogra phy 12/03/2020 3:32 PM CDT Impressions 12/03/2020 3:40 PM CDT =====IMPRESSION:===== No acute findings. Referred By: ALICJA GUERRA Interpreted By: Chito Morales MD, 12/03/2020 3:32 PM Narrative 12/03/2020 3:40 PM CDT EXAMINATION: ??CT of the head without contrast EXAM DATE/TIME: 12/03/2020 3:22 PM REASON FOR EXAM: ??Headache, dizziness. COMPARISON: None. TECHNIQUE: No contrast. Automated exposure control was utilized for dose reduction. FINDINGS: ?No acute intracranial hemorrhage, parenchymal mass or midline shift. Dural membranes are somewhat dense but otherwise uniform and symmetric. Nonspecific focal dural thickening superiorly along the falx. Tiny intracranial lipoma along the sagittal dural sinus. Minimal age commensurate atrophy with slight prominence of the sulci in the frontal and parietal regions. Question minimal white matter gliosis. Villagomez-white matter differentiation is well preserved. Deep nuclei and insular cortices are well-defined. Brainstem is somewhat obscured by artifact at the level of the skull base. Minimal mucosal thickening in the ethmoid sinuses. Paranasal sinuses and mastoid air cells are otherwise clear. No acute fracture or destructive bone lesion. Procedure Note Chito Morales MD - 12/03/2020 EXAMINATION: CT of the head without contrast EXAM DATE/TIME: 12/03/2020 3:22 PM REASON FOR EXAM: Headache, dizziness. COMPARISON: None. TECHNIQUE: No contrast. Automated exposure control was utilized for dose reduction. FINDINGS: No acute intracranial hemorrhage, parenchymal mass ormidline shift. Dural membranes are somewhat dense but otherwise uniform and symmetric. Nonspecific focal dural thickening superiorly along the falx. Tiny intracranial lipoma along the sagittal dural sinus. Minimal age commensurate atrophy with slight prominence of the sulci in the frontaland parietal regions. Question minimal white matter gliosis. Villagomez-whitematter differentiation is well preserved. Deep nuclei and insular cortices are well-defined. Brainstem is somewhat obscured by artifact at the level of the skull base. Minimal mucosal thickening in the ethmoid sinuses. Paranasal sinuses and mastoid air cells are otherwise clear. No acute fracture or destructive bone lesion. =====IMPRESSION:===== No acute findings. Referred By: ALICJA GUERRA Interpreted By: Chito Mroales MD, 12/03/2020 3:32 PM us Alicja Guerra PA-C CT Final Resul t * (ABNORMAL) URINALYSIS (12/03/2020 3:18 PM CDT) SPECIMEN TYPE URINE CLEAN CATCH 12/03/2020 3:18 PM CDT [facility] COLOR (U) YELLOW 12/03/2020 4:49 PM CDT [facility] TRANSPARENCY CLEAR 12/03/2020 4:49 PM CDT [facility] SPECIFIC GRAVITY (U) 1.022 1.001 - 1.030 12/03/2020 4:49 PM CDT [facility] U PH 5.5 5.0 - 9.0 12/03/2020 4:49 PM CDT [facility] LEUKOCYTES (U) NEGATIVE NEGATIVE 12/03/2020 4:49 PM CDT [facility] NITRITES NEGATIVE NEGATIVE 12/03/2020 4:49 PM CDT [facility] PROTEIN (U) 50(H) <30 MG/DL 12/03/2020 4:49 PM CDT [facility] URINE GLUCOSE NORMAL NORMAL MG/DL 12/03/2020 4:49 PM CDT [facility] KETONES MG/DL (U) NEGATIVE NEGATIVE MG/DL 12/03/2020 4:49 PM CDT [facility] UROBILINOGEN NORMAL NORMAL MG/DL 12/03/2020 4:49 PM CDT [facility] BILIRUBIN (U) NEGATIVE NEGATIVE MG/DL 12/03/2020 4:49 PM CDT [facility] BLOOD (U) NEGATIVE NEGATIVE 12/03/2020 4:49 PM CDT [facility] CULTURE & SENSITIVITY INDICATED? CULTURE IS NOT INDICATED 12/03/2020 4:49 PM CDT [facility] MUCUS RARE /LPF 12/03/2020 4:49 PM CDT [facility] HYALINE CASTS RARE /LPF 12/03/2020 4:49 PM CDT [facility] WBC/HPF 4 <6 /HPF 12/03/2020 4:49 PM CDT [facility] RBC/HPF 2 <6 /HPF 12/03/2020 4:49 PM CDT [facility] SQUAMOUS EPITHELIALS RARE /HPF 12/03/2020 4:49 PM CDT [facility] URINE SPECIMEN OBTAINED BY CLEAN CATCH PROCEDURE / Unknown 12/03/2020 3:18 PM CDT us Alicja Guerra PA-C URINE ORDERABLES Final Resu lt [facility] [address] [place] [address], [place] [phone] * XR CHEST PORTABLE (12/03/2020 1:40 PM CDT) Anatomical Region Laterality Modality Chest Radiographic Martina ging 12/03/2020 1:46 PM CDT Impressions 12/03/2020 1:48 PM CDT Impression: 1. ??Subjective slight central vascular congestion. 2. ??Increased interstitial markings in the lower lungs possibly artifactual, interstitial edema, interstitial pneumonitis. Referred By: ?? Interpreted By: Chito Toribio MD, 12/03/2020 1:46 PM Narrative 12/03/2020 1:48 PM CDT Date: 12/03/2020 1:23 PM Exam: XR CHEST PORTABLE Comparison: No comparisons. Technique: Single view chest. History: Vertigo. ??Dizziness. Findings: The cardiac silhouette is normal in size. ??There is slight central vascular congestion. ??There are increased interstitial markings in the lower lungs possibly artifactual, interstitial pneumonitis, interstitial edema. ??There are no consolidations nor effusions. ??There is no pneumothorax. ??There is a calcified granuloma in the lingula. ??There is fusion hardware in the lower cervical spine. Procedure Note Chito Toribio MD - 12/03/2020 Date: 12/03/2020 1:23 PM Exam: XR CHEST PORTABLE Comparison: No comparisons. Technique: Single view chest. History: Vertigo. Dizziness. Findings: The cardiac silhouette is normal in size. There is slightcentral vascular congestion. There are increased interstitial markings inthe lower lungs possibly artifactual, interstitial pneumonitis,interstitial edema. There are no consolidations nor effusions. There isno pneumothorax. There is a calcified granuloma in the lingula. There isfusion hardware in the lower cervical spine. Impression: 1. Subjective slight central vascular congestion. 2. Increased interstitial markings in the lower lungs possiblyartifactual, interstitial edema, interstitial pneumonitis. Referred By: Interpreted By: Chito Toribio MD, 12/03/2020 1:46 PM us Alicja Guerra PA-C GENERAL IMAGING Final Resul t * MAGNESIUM (12/03/2020 1:34 PM CDT) MAGNESIUM 2.1 1.8 - 2.4 MG/DL 12/03/2020 2:31 PM CDT [facility] 12/03/2020 1:34 PM CDT Alicja Guerra PA-C LABORATORY Final Resul t Performing Organization Address City/[facility]/ZIP Co de Phone Number [facility] [address] [place] [address], [place] [phone] * TSH W/REFLEX (12/03/2020 1:34 PM CDT) TSH 1.110 0.358 - 3.74 uIU/ML 12/03/2020 2:31 PM CDT [facility] Comment: HIGH DOSES OF BIOTIN MAY INTERFERE WITH THIS TEST RESULT. CORRELATION TO CLINICAL HISTORY AND PRESENTATION RECOMMENDED. FREE T4 NOT INDICATED 12/03/2020 1:34 PM CDT Alicja Guerra PA-C LABORATORY Final Resul t Performing Organization Address [facility] Co de Phone Number [facility] [address] [place] [address], [place] [phone] * TROPONIN, QUANT (12/03/2020 1:34 PM CDT) TROPONIN I <0.015 <0.045 ng/mL. 12/03/2020 2:31 PM CDT [facility] Comment: HIGH DOSES OF BIOTIN MAY INTERFERE WITH THIS TEST RESULT. CORRELATION TO CLINICAL HISTORY AND PRESENTATION RECOMMENDED. 12/03/2020 1:34 PM CDT Alicja Guerra PA-C LABORATORY Final Resul t Performing Organization Address City/[facility]/ZIP Co de Phone Number [facility] [address] [place] [address], * (ABNORMAL) COMPREHENSIVE METABOLIC PANEL (12/03/2020 1:34 PM CDT) [facility] GLUCOSE 86 70 - 99 MG/DL 12/03/2020 2:31 PM CDT [facility] BUN 12 7 - 18 MG/DL 12/03/2020 2:31 PM CDT [facility] CREATININE S/P/B 0.91 0.7 - 1.3 MG/DL 12/03/2020 2:31 PM CDT [facility] SODIUM S/P/B 140 136 - 145 MMOL/L 12/03/2020 2:31 PM CDT [facility] POTASSIUM S/P/B 3.6 3.5 - 5.1 MMOL/L 12/03/2020 2:31 PM CDT [facility] CHLORIDE S/P/B 107 100 - 108 MMOL/L 12/03/2020 2:31 PM CDT [facility] CO2 30.3 21 - 32 MMOL/L 12/03/2020 2:31 PM CDT [facility] CALCIUM S/P/B 8.9 8.5 - 10.1 MG/DL 12/03/2020 2:31 PM CDT [facility] BILIRUBIN TOTAL S/P/B 0.5 0.2 - 1.2 MG/DL 12/03/2020 2:31 PM CDT [facility] Comment: THIS ASSAY IS NOT RECOMMENDED FOR PATIENTS UNDERGOING TREATMENT WITH ELTROMBOPAG DUE TO THE POTENTIAL FOR FALSELY ELEVATED RESULTS. TOTAL PROTEIN S/P/B 7.2 6.4 - 8.2 G/DL 12/03/2020 2:31 PM CDT [facility] ALBUMIN S/P/B 3.6 3.4 - 5.0 G/DL 12/03/2020 2:31 PM CDT [facility] AST 23 15 - 37 U/L 12/03/2020 2:31 PM CDT [facility] ALT 29 16 - 60 U/L 12/03/2020 2:31 PM CDT [facility] ALKALINE PHOSPHATASE S/P/B 134 50 - 136 U/L 12/03/2020 2:31 PM CDT [facility] ANION GAP 2.7(L) 5 - 15 MMOL/L 12/03/2020 2:31 PM CDT [facility] BUN CREATININE RATIO 13.2 6 - 26 12/03/2020 2:31 PM CDT [facility] A/G RATIO 1.0 1.0 - 2.0 RATIO 12/03/2020 2:31 PM CDT [facility] EGFR NON-AFR. AMER. 89(L) >90 ML/MIN/1.7 3 M2 12/03/2020 2:31 PM CDT [facility] EGFR AFR. AMER. >90 >90 ML/MIN/1.7 3 M2 12/03/2020 2:31 PM CDT [facility] Comment: NOTE: eGFR is not calculated for patients <18 years of age. This is an estimated GFR (CKD EPI) and should not be used for calculating drug doses. 12/03/2020 1:34 PM CDT us Alicja Guerra PA-C LABORATORY Final Resul t [facility] [address] [place] [address], [place] [phone] * (ABNORMAL) CBC W/DIFF AUTOMATED (12/03/2020 1:34 PM CDT) WBC 8.3 4.5 - 11.0 x10'3/uL 12/03/2020 2:07 PM CDT [facility] RBC 5.10 4.70 - 6.10 x10'6/uL 12/03/2020 2:07 PM CDT [facility] HGB 15.9 14.0 - 18.0 G/DL 12/03/2020 2:07 PM CDT [facility] HCT 47.6 43.0 - 54.0 % 12/03/2020 2:07 PM CDT [facility] MCV 93.3 80.0 - 94.0 FL 12/03/2020 2:07 PM CDT [facility] MCH 31.2(H) 27.0 - 31.0 PG 12/03/2020 2:07 PM CDT [facility] MCHC 33.4 32.0 - 36.0 G/DL 12/03/2020 2:07 PM CDT [facility] RDW 13.5 11.5 - 14.5 % 12/03/2020 2:07 PM CDT [facility] PLT 150 130 - 400 x10'3/uL 12/03/2020 2:07 PM CDT [facility] MPV 11.1 9.3 - 12.2 FL 12/03/2020 2:07 PM CDT [facility] DIFFERENTIAL TYPE AUTOMATED DIFFERENTIAL 12/03/2020 2:07 PM CDT [facility] NEUTROPHILS % 65.8 % 12/03/2020 2:07 PM CDT [facility] LYMPHOCYTES % 22.9 % 12/03/2020 2:07 PM CDT [facility] MONOCYTES % 7.3 % 12/03/2020 2:07 PM CDT [facility] EOSINOPHILS 2.7 % 12/03/2020 2:07 PM CDT [facility] BASOPHILS 0.8 % 12/03/2020 2:07 PM CDT [facility] IMMATURE GRANS % 0.5 % 12/04/19 2:07 PM CDT [facility] ABS. NEUTROPHILS TOTAL 5.46 1.80 - 7.70 x10'3/uL 12/03/2020 2:07 PM CDT [facility] ABS. LYMPHOCYTES 1.90 1.00 - 4.80 x10'3/uL 12/03/2020 2:07 PM CDT [facility] ABS. MONOCYTES 0.61 0.30 - 0.82 x10'3/uL 12/03/2020 2:07 PM CDT [facility] ABS. EOSINOPHILS 0.22 0.04 - 0.54 x10'3/uL 12/03/2020 2:07 PM CDT [facility] ABS. BASOPHILS 0.07 0.01 - 0.08 x10'3/uL 12/03/2020 2:07 PM CDT [facility] ABS. IMMATURE GRANULOCYTES 0.04 0.00 - 0.49 x10'3/uL 12/03/2020 2:07 PM CDT [facility] 12/03/2020 1:34 PM CDT Alicja Guerra PA-C LABORATORY Final Resul t [facility] [address] [place] [address], * ECG 12 lead (12/03/2020 1:26 PM CDT) 12/03/2020 1:26 PM CDT Narrative [facility] - 12/05/2020 7:11 PM CDT ?[facility] ? [address], [place] ? Test Date: ?2020-12-03 Pat Name: ? WILY BAHENA ? Department: ? Room: ? EXAM11 Gender: ? Male ? 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 SK : ?1955 ? Requested By: ALICJA GUERRA Order Number: [id number] ? Reading MD: ?? Audi Spencer ? Measurements Intervals ?[place] ? Rate: ? 62 ? P: ?-43 IN: ? 130 ?QRS: ?13 QRSD: ? 84 ? T: ?44 QT: ? 421 ? QTc: ?429 ? Interpretive Statements SINUS RHYTHM No previous ECG available for comparison Preliminary EKG interpretation by ED Physician No ischemic changes Derek Michele PA-C CRITICAL ALERT ISSUED ON 12-03-2020 13:31:03 Procedure Note Audi Spencer MD - 12/05/[address] [facility] Test Date: 2020-12-03 Pat Name: WILY BAHENA Department: Room: [facility] Gender: Male Salesperson Meats: SANDY : 1955 Requested By: ALICJA GUERRA Order Number: [id number] Reading MD: Audi Spencer Measurements Intervals [place] Rate: 62 P: -43 IN: 130 QRS: 13 QRSD: 84 T: 44 QT: 421 QTc: 429 Interpretive Statements SINUS RHYTHM No previous ECG available for comparison Preliminary EKG interpretation by ED Physician No ischemic changes Derek Michele PA-C CRITICAL ALERT ISSUED ON 12-03-2020 13:31:03 us Alicja Guerra PA-C ECG ORDERABLES Final Resul t [facility] RAD documented in this encounter Visit Diagnoses Diagnosis Vertigo- Primary Dizziness and giddiness documented in this encounter Administered Medications Inactive Administered Medications - up to 3 most recent administrations Medication Order MAR Action Action Date Dose Rate Site LORazepam (ATIVAN) injection 1 mg 1 mg, Intravenous, Once, 1 dose, On Thu12/03/20 at 1315, For IV use, further dilute with an equal volume of saline. Do not exceed a rate of 2 mg/min. Given 12/03/2020 2:11 PM CDT 1 mg ondansetron (ZOFRAN) injection 4 mg 4 mg, Intravenous, Once, 1 dose, On Thu12/03/20 at 1315, IV push over 2-5 minutes. Given 12/03/2020 2:08 PM CDT 4 mg sodium chloride 0.9% bolus infusion SOLN 1,000 mL 1,000 mL, Intravenous, Administer over 15 Minutes, Once, 1 dose, On Thu12/03/20 at 1315 New Bag 12/03/2020 1:39 PM CDT 1,000 mLs documented in this encounter Active and Recently Administered Medications Times are shown in CDT. Scheduled Medication Order 12/01/2020 12/02/2020 12/03/2020 LORazepam (ATIVAN) injection 1 mg (COMPLETED) 1 mg, Intravenous, Once, 1 dose, On Thu12/03/20 at 1315, For IV use, further dilute with an equal volume of saline. Do not exceed a rate of 2 mg/min. 1411 (Given - Provid er: Ani Mejia RN) ondansetron (ZOFRAN) injection 4 mg (COMPLETED) 4 mg, Intravenous, Once, 1 dose, On Thu12/03/20 at 1315, IV push over 2-5 minutes. 1408 (Given - Provid er: Ani Mejia RN) sodium chloride 0.9% bolus infusion SOLN 1,000 mL (COMPLETED) 1,000 mL, Intravenous, Administer over 15 Minutes, Once, 1 dose, On Thu12/03/20 at 1315 1339 (New Bag - Prov ider: Emerald Ngo RN)1458 (Infusion Stop Time - Provider: Ani Mejia RN) documented in this encounter Additional Health Concerns Assessment Noted Time PHQ-9 Depression Total Score: 5 10/31/19 2:44 PM CIRCUIT WALKER documented as of this encounter Care Teams Sewer Connector Relationship Specialty Start Date End Date Johnathon Braga DO [address] [place] [address] PCP - General FAMILY PRACTICE 10/31/20 documented as of this encounter
--- OUTSIDE RECORDS SUMMARY | 2024-09-03 07:53 | XMS_ITS | Encounter Summary ---
Author Organization [facility] Address [address] [place] [address]. [place], [place] [id number] [place] [address] Care Team Providers Care Rent Collector Name Role Phone KrisJohnathon alexis DO Primary Care Provider + Reason for Referral * Imaging (Routine) - Closed Specialty Diagnoses / Procedures Referred By Contac t Referred To Contact RADIOLOGY Diagnoses Vertigo Procedures CT TEMP BONES WO CON Nikki Michelle MD Phone: tel: fax: Referral ID Status Reason Start Date Expiration Date Visits Re quested Visits Authorized [id number] Closed 06/20/2022 06/20/2023 1 1 Reason for Visit * Imaging (Routine) - Closed Specialty Diagnoses / Procedures Referred By Contac t Referred To Contact RADIOLOGY Diagnoses Vertigo Procedures CT TEMP BONES WO CON Nikki Michelle MD Phone: tel: fax: Referral ID Status Reason Start Date Expiration Date Visits Re quested Visits Authorized [id number] Closed 06/20/2022 06/20/2023 1 1 Encounter Details Date Type Department Care Team (Latest Contact Info) Description 06/21/2022 10:52 AM CDT - 06/21/2022 11:59 PM CDT Hospital Encounter [facility] [address] [facility] [address] [place] [address] HolaNikki Hook MD [address] [place] [address] Discharge Disposition: Home or Self Care (Routine [...] file Legal Sex Male 11:26 AM CLINICAL ACCOUNT EXECUTIVE Gender Identity Not on file Sexual Orientation Not on file COVID-19 Exposure Response Date Recorded In the last 10 days, have yo u been in contact with someone who was confirmed or suspected to have Coronavirus/COVID-19? No / Unsure 06/21/2022 10:49 AM CDT documented as of this encounter Medications at Time of Discharge fish oil 1000 MG Cap capsule Take by mouth 2 (two) times daily. hydrOXYzine 50 MG tablet Take by mouth every 8 (eight) hours as needed. 10/29/2020 lamoTRIgine 100 MG tablet Take 1 tablet (100 mg total) by mouth 2 (two) times daily. 12/31/2020 Multiple Vitamins-Minerals (CENTRUM ADULTS OR) Take 1 tablet by mouth daily. tamsulosin 0.4 MG Cap Take 1 capsule (0.4 mg total) by mouth daily. 01/13/2022 testosterone cypionate 200 MG/ML injection Inject 1 mL (200 mg total) into the muscle every 21 days. 10/13/2020 vitamin D3, cholecalciferol, 1000 UNIT Tab tablet Take 2 tablets (2,000 Units total) by mouth daily. allopurinol (ZYLOPRIM) 300 MG tabletIndications: Idiopathic gout, unspecified chronicity, unspecified site TAKE ONE TABLET BY MOUTH DAILY 90 tablet 05/09/2022 2 atorvastatin (LIPITOR) 10 MG tabletIndications: Hyperlipidemia TAKE ONE TABLET BY MOUTH EVERY DAY AT BEDTIME 90 tablet 1 05/01/2022 3 chlorthalidone (HYGROTEN) 25 MG tabletIndications: Essential hypertension Take 1 tablet by mouth once daily 90 tablet 04/23/2022 2 dextromethorphan-q uiNIDine 20-10 MG Cap capsule Take by mouth 2 (two) times a day. 3 donepezil 10 MG Tab 10/18/2020 3 gabapentin (NEURONTIN) 100 MG capsule 03/10/2022 3 gabapentin 300 MG capsuleIndications :Polyneuropathy Take 1 capsule (300 mg total) by mouth 2 (two) times a day. 60 capsule 2 03/10/2022 2 gentamicin 0.1 % ointmentIndication s:Diabetic foot ulcer (CMS/HCC HHS/HCC) Apply topically to foot wound(s) twice daily until healed 30 g 03/10/2022 3 ipratropium (ATROVENT) 0.06 % nasal spray 05/17/2022 3 meclizine 25 MG tablet Take 1 tablet by mouth daily as needed. 3 modafinil 200 MG tablet Take 1 tablet (200 mg total) by mouth daily. 10/02/2020 3 prazosin (MINIPRESS) 2 MG capsule 04/03/2022 3 venlafaxine 75 MG tablet Take 1 tablet (75 mg total) by mouth 2 (two) times daily with meals. 10/29/2020 3 documented as of this encounter Progress Notes * Nikki Michelle MD - 06/21/2022 11:00 AM CDT Can you please let them [...] Contact Info) Description 09/10/2024 11:30 AM CLINICAL ACCOUNT EXECUTIVE Appointment [facility] [address] [place] [address] Zay [place] [address] [facility] [address] [place] [address] 10/25/2024 9:20 AM CLINICAL ACCOUNT EXECUTIVE Office Visit [facility] Family & Internal Medicine - [address] [phone] Johnathon Braga DO [address] [place] [address] 11/21/2024 9:40 AM CDT Office Visit [facility] Multispecialty Care - [facility] [address] [facility], [address] [place] [id number] Shelli Gonzalez MD [address] [place] [address] documented as of this encounter Procedures Procedure Name Priority Date/Time Associated Diagnosis Comments CT TEMP BONES WO CON Routine 06/21/2022 11:22 AM CDT Vertigo documented in this encounter Results * CT TEMP BONES WO CON (06/21/2022 11:22 AM CDT) Anatomical Region Laterality Modality Head Computed Tomogra phy 06/23/2022 7:07 PM CDT Impressions 06/23/2022 8:15 PM CDT IMPRESSION: 1. ??No evidence of superior semicircular canal dehiscence/arcuate eminence thickening. ??Normal appearance of the internal auditory canals. 2. 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 Referred By: CURTISSarahDale NALLELYEVELIO HunterZOLeloERVIN Interpreted By: Chito Morales MD, 06/23/2022 7:07 [...] MD - 06/23/2022 EXAMINATION: CT TEMP BONES AMOL ISAAC, 06/23/2022 7:07 PM TECHNIQUE: Computed tomographic images [...] fusion of the anterior and posterior midline [id number]. Referred By: NIKKI MICHELLE Interpreted By: Chito Morales MD, 06/23/2022 7:07 PM us Nikki Michelle MD CT Shaila l Result documented in this encounter Visit Diagnoses Diagnosis Vertigo Dizziness and giddiness documented in this encounter Additional Health Concerns Assessment Noted Time PHQ-9 Depression Total Score: 5 10/31/19 21 2:44 PM CLINICAL ACCOUNT EXECUTIVE documented as of this encounter Care Teams Rent Collector Relationship Specialty Start Date End Date Johnathon Braga DO [address] [place] [address] PCP - General FAMILY PRACTICE 10/31/20 documented as of this encounter
--- OUTSIDE RECORDS SUMMARY | 2024-09-03 07:53 | XMS_ITS | Encounter Summary ---
Author Organization [facility] Address [address] [place] [address]. [place], [place] [address] [place] [address] Care Team Providers Care Raised Printer Name Role Phone Johnathon Braga DO Primary Care Provider + Reason for Visit * Reason Onset Date Comments Refill Request 03/10/2022 Encounter Details Date Type Department Care Team (Late st Contact Info) Description 03/10/2022 Telephone [facility] Family & Internal Medicine [facility] [address] [place] [address] Johnathon Braga DO [address] [place], [place] [phone] Refill Request Social History Tobacco Use Types [...] on file Legal Sex Male 11:26 AM OCULAR CARE AIDE Gender Identity Not on file Sexual Orientation Not on file COVID-19 Exposure Response Date Recorded In the last 10 days, have yo u been in contact with someone who was confirmed or suspected to have Coronavirus/COVID-19? No / Unsure 03/10/2022 2:09 PM CDT documented as of this encounter Progress Notes * Rosalba Perez MA - 03/10/2022 4:30 PM CDT rx sent 03/10/22 * Johnathon Braga DO - 03/10/2022 3:56 PM CDT OK to send this over for pt. Dx foot wound. * Abiola Vogel MA - 03/10/2022 3:50 PM CDT Received a call from Nayana, she states you needed to know the name of an ointment patient has been using for a wound. Gentamicin sulfate oint 1% Direction: apply to wound twice daily until healed documented in this encounter Plan of Treatment Upcoming Encounters Date Type Department Care Team (Late st Contact Info) Description 09/10/2024 11:30 AM OCULAR CARE AIDE Appointment [facility] [address] [place] [address] Zay Juárez [place] [id number] [address] 10/25/2024 9:20 AM OCULAR CARE AIDE Office Visit [facility] Medical Group Family & Internal Medicine - [address] [phone] Johnathon Braga DO [address] [place] [address] 11/21/2024 9:40 AM CDT Office Visit [facility] Multispecialty Care - [facility] [address] [facility], [address] [place] [address] Shelli Gonzalez MD [address] [place] [address] documented as of this encounter Visit Diagnoses Diagnosis Diabetic foot ulcer ([facility]/HCC HHS/HCC)- Primary Type II or unspecified type diabetes mellitus with other specified manifestations, not stated as uncontrolled documented in this encounter Additional Health Concerns Assessment Noted Time PHQ-9 Depression Total Score: 5 10/31/19 21 2:44 PM OCULAR CARE AIDE documented as of this encounter Care Teams Raised Printer Relationship Specialty Start Date End Date Johnathon Braga DO [address] [place] [phone] PCP - General FAMILY PRACTICE 10/31/20 documented as of this encounter
--- OUTSIDE RECORDS SUMMARY | 2024-09-03 07:53 | XMS_ITS | Encounter Summary ---
Author Organization [facility] Address [address] [place] [address]. [place], [place] [address] [place] [address] Care Team Providers Care Pigs Feet Finisher Name Role Phone Johnathon Braga DO Primary Care Provider + Reason for Visit * Reason Onset Date Comments Results 02/21/2021 Encounter Details Date Type Department Care Team (Late st Contact Info) Description 02/21/2021 Telephone [facility] [address] [place] [address] Johnathon Braga DO [address] [place], [place] [phone] Results Social History Tobacco Use Types Packs/Day [...] Legal Sex Male 11:26 AM DIRECTOR OF PLACEMENT Gender Identity Not on file Sexual Orientation Not on file COVID-19 Exposure Response Date Recorded In the last month, have you been in contact with someone who was confirmed or suspected to have Coronavirus / COVID-19? No / Unsure 01/30/2021 2:02 PM CDT documented as of this encounter Progress Notes * Abiola Vogel MA - 02/21/2021 11:33 AM CDT Patient's Nayana informed and v/u. Per Rosalba copy faxed to Psychiatrist already. Nayana asked thatwe also fax a copy to her @ . done * Rosalba Perez MA - 02/21/2021 11:29 AM CDT ----- Message from Johnathon Brgaa DO sent at 02/20/2021 7:53 PM CDT ----- Please let pt know that his lamotrigine level is noted to be low per range of this testing; please send results to pt's psychiatrist to ensure he/she does not wish to alter regimen based upon this reading. documented in this encounter Plan of Treatment Upcoming Encounters Date Type Department Care Team (Late st Contact Info) Description 09/10/2024 11:30 AM DIRECTOR OF PLACEMENT Appointment [facility] [address] [place] [address] Zay Juá[place] [address] [facility] [address] [place] [phone] 10/25/2024 9:20 AM DIRECTOR OF PLACEMENT [facility] Family [facility] Internal Medicine - [place] [address] [place] [address] Johnathon Braga DO [address] [place] [address] 11/21/2024 9:40 AM CDT Office Visit [facility] Multispecialty Care - [address], [address] [place] [address] Shelli Gonzalez MD [address] [place] [address] documented as of this encounter Visit Diagnoses Not on filedocumented in this encounter Additional Health Concerns Assessment Noted Time PHQ-9 Depression Total Score: 5 10/31/19 21 2:44 PM DIRECTOR OF PLACEMENT documented as of this encounter Care Teams Pigs Feet Finisher Relationship Specialty Start Date End Date Johnathon Braga DO [address] [place] [address] PCP - General FAMILY PRACTICE 10/31/20 documented as of this encounter
--- OUTSIDE RECORDS SUMMARY | 2024-09-03 07:53 | XMS_ITS | Encounter Summary ---
Author Organization [facility] Address [address] [place] [address]. [place], [place] [address] [place] [address] Care Team Providers Care Stave Bolt Equalizer Name Role Phone Johnathon Braga DO Primary Care Provider + Reason for Visit * Reason Onset Date Comments Results 11/13/2020 Encounter Details Date Type Department Care Team (Late st Contact Info) Description 11/13/2020 Telephone [facility] Medical Group Family & Internal Medicine [facility] [address] [place] [address] Johnathon Braga DO [address] [place], [place] [phone] Results Social History Tobacco Use Types Packs/Day [...] on file Legal Sex Male 11:26 AM FELLMONGERY WORKER Gender Identity Not on file Sexual Orientation Not on file COVID-19 Exposure Response Date Recorded In the last month, have you been in contact with someone who was confirmed or suspected to have Coronavirus / COVID-19? No / Unsure 01/30/2021 2:02 PM CDT documented as of this encounter Progress Notes * Prachi Dominguez MA - 11/14/2020 7:46 AM CST Nayana Mckeon. His psych doctor is Nirmal womack there fax number is [phone]. Doctors name is Sinan Last. Labs faxed. BB 11/14/20 MONGERY WORKER * Prachi Dominguez MA - 11/13/2020 4:06 PM CST LMOM to give lab results. Also, needing to know pt's psych doctor? BB 11/13/20 Needing to fax Valproic acid (labs) to psych doctor. MONGERY WORKER * Prachi Dominguez MA - 11/13/2020 4:04 PM CST ----- Message from Johnathon Braga DO sent at 11/11/2020 12:49 PM FELLMONGERY WORKER ----- Vitamin D is still low; recommend increase Vitamin D to 2000 IU daily. Pt's valproic acid level is still low. Needs to talk to psych about this and please send these results to pt's psychiatrist. otherwise labs are WNL. MONGERY WORKER documented in this encounter Plan of Treatment Upcoming Encounters Date Type Department Care Team (Late st Contact Info) Description 09/10/2024 11:30 AM FELLMONGERY WORKER Appointment [facility] [address] [place], [place] [phone] Zay Juárez [place] [id number] [address] 10/25/2024 9:20 AM FELLMONGERY WORKER Office Visit [facility] Medical Group Family & Internal Medicine [place] [phone] Johnathon Braga DO [address] [place] [address] 11/21/2024 9:40 AM CDT Office Visit [facility] Medical Group Multispecialty Care - [facility] 3 [facility], [address] [place] [address] Shelli Gonzalez MD 3 [place] [address] documented as of this encounter Visit Diagnoses Not on filedocumented in this encounter Additional Health Concerns Assessment Noted Time PHQ-9 Depression Total Score: 5 10/31/19 21 2:44 PM FELLMONGERY WORKER documented as of this encounter Care Teams Stave Bolt Equalizer Relationship Specialty Start Date End Date Johnathon Braga DO [address] [place] [address] PCP - General FAMILY PRACTICE 10/31/20 documented as of this encounter
--- OUTSIDE RECORDS SUMMARY | 2024-09-03 07:53 | XMS_ITS | Encounter Summary ---
Author Organization [facility] Address [address] [place] [address]. [place], [place] [address] [place] [address] Care Team Providers Care Sulfonation Equipment Operator Name Role Phone Johnathon Braga DO Primary Care Provider + Reason for Referral * Consultation (Routine) - Closed Specialty Diagnoses / Procedures Referred By Jonah weber Referred To Contact PODIATRY/SURGERY Diagnoses Polyneuropathy Open wound of right foot, initial encounter Johnathon Braga DO [address] [place] [address] Phone: tel: fax: Chito Fields, TIMMY [address] [place] [address] Phone: tel: fax: Referral ID Status Reason Start Date Expiration Date V isits Requested Visits Authorized [id number] Closed Specialty Services 03/10/2022 04/09/2023 99 99 Reason for Visit * Reason Comments Follow Up Encounter Details Date Type Department Care Team (Late st Contact Info) Description 03/10/2022 2:20 PM CDT Office Visit [facility] Medical Group Family & Internal Medicine [facility] [address] [place] [address] Johnathon Braga DO [address] [place] [address] Follow Up Social History Tobacco Use Types [...] on file Legal Sex Male 11:26 AM ANESTHESIOLOGY PHYSICIAN Gender Identity Not on file Sexual Orientation Not on file COVID-19 Exposure Response Date Recorded In the last 10 days, have yo u been in contact with someone who was confirmed or suspected to have Coronavirus/COVID-19? No / Unsure 03/10/2022 2:09 PM CDT documented as of this encounter Last Filed Vital Signs Vital Sign Reading Time Taken Comments Blood Pressure 110/54 03/10/2022 2:14 PM CDT Pulse 66 03/10/2022 2:14 PM CDT Temperature 37.1 ??C (98.8 ??F) 03/10/2022 2:14 PM CD T Respiratory Rate 16 03/10/2022 2:14 PM CDT Oxygen Saturation 98% 03/10/2022 2:14 PM CDT Inhaled Oxygen Concentration - - Weight 99.9 kg (220 lb 4.8 oz) 03/10/2022 2:14 P M CDT Height 180.3 cm (5' 11 ) 03/10/2022 2:14 PM CDT Body Mass Index 30.73 03/10/2022 2:14 PM CDT documented in this encounter Progress Notes * Johnathon Braga, - 03/10/2022 2:20 PM CDT Images from the original note were not included. GENERAL OFFICE VISIT Encounter Date: 03/10/2022 Chief Complaint: 66-year-old male presents for Follow Up HPI: Pt presents for follow-up. Pt was started on gabapentin at last OV for neuropathy. He states it hasbeen helpful. He has been taking it twice a day. Pt is scheduled to see Dr. Hill on 06/20/22. Pt has had fatigue for 6-12 months. Labs were mostly unremarkable other than an A1c. Pt is on testosterone therapy and is being managed by Dr. Ayala. He will see them tomorrow. He does snore. He was told he had ROSEMARIE likely 7-8 years ago. Pt does have some chronic foot changes including cracking of foot and neuropathy. Review of Systems Constitutional: Positive for fatigue. [...] Immunization History Administered Date(s) Administered ? ? [employer]) COVID-19 AD26 VACCINE 0.5 ML IM SUSP 11/22/2020 ??? Td 05/04/2008 ??? Tdap (Generic) 06/04/2021 Current Outpatient Medications Medication [...] mg total) as needed in the evening. ??? hydrOXYzine 50 MG tablet ??? lamoTRIgine [...] Carbamazepine Rash and Swelling Objective: Filed Vitals: 03/10/22 1414 BP: 110/54 Pulse: 66 Resp: 16 Temp: 98.8 ??F (37.1 ??C) TempSrc: Skin SpO2: 98% Weight: 99.9 kg (220 lb 4.8 oz) Height: 5' 11 (1.803 [...] Tenderness: There is no abdominal tenderness. Skin: Comments: Splitting of skin and wounds noted on toes and foot B/L Neurological: Mental Status: Mental status is at baseline. Psychiatric: Comments: Similar to previous Assessment & Plan: Wily was seen today for follow up. Diagnoses and all orders for this visit: Polyneuropathy - gabapentin 300 MG capsule; Take 1 capsule (300 mg total) by mouth 2 (two) times a day. - Ambulatory referral to Podiatry (OTHER) Essential hypertension Fatigue, unspecified type ROSEMARIE (obstructive sleep apnea) Open wound of right foot, initial encounter - Ambulatory referral to Podiatry (OTHER) Discussion/Summary: Will increase gabapentin today. Will refer to podiatry. Will order sleep study; suspect this is source of fatigue. Continue other medications. F/u with neuro. Will await the results of sleep study. Pt v/u. Johnathon Braga DO documented in this encounter Plan of Treatment Upcoming Encounters Date Type Department Care Team (Late st Contact Info) Description 09/10/2024 11:30 AM ANESTHESIOLOGY PHYSICIAN Appointment [facility] [address] [place], [place] [phone] Zay Juárez [place] [address] [facility] [address] [place] [address] 10/25/2024 9:20 AM ANESTHESIOLOGY PHYSICIAN Office Visit [facility] Medical Group Family & Internal Medicine - [address] [phone] Johnathon Braga DO [address] [place] [address] 11/21/2024 9:40 AM CDT Office Visit [facility] Multispecialty Care - [address], [address] [place] [phone] Shelli Gonzalez MD [address] [place] [phone] Scheduled Referrals Name Type Priority Associated Diagnoses Orde r Schedule Ambulatory referral to Podiatry (OTHER) Referral Routine Polyneuropathy Open wound of right foot, initial encounter Ordered: 03/10/2022 documented as of this encounter Visit Diagnoses Diagnosis Polyneuropathy- Primary Unspecified hereditary and idiopathic peripheral neuropathy Essential hypertension Unspecified essential hypertension Fatigue, unspecified type ROSEMARIE (obstructive sleep apnea) Obstructive sleep apnea (adult) (pediatric) Open wound of right foot, initial encounter documented in this encounter Additional Health Concerns Assessment Noted Time PHQ-9 Depression Total Score: 5 10/31/19 21 2:44 PM ANESTHESIOLOGY PHYSICIAN documented as of this encounter Care Teams Sulfonation Equipment Operator Relationship Specialty Start Date End Date Johnathon Braga DO [address] [place] [address] PCP - General FAMILY PRACTICE 10/31/20 documented as of this encounter
--- OUTSIDE RECORDS SUMMARY | 2024-09-03 07:53 | XMS_ITS | Encounter Summary ---
Author Organization [facility] Address [address] [place] [address]. [place], [place] [address] [place] [address] Care Team Providers Care Ostrich Farmer Name Role Phone Johnathon Braga Primary Care Provider + Reason for Visit * Reason Comments Pathology (SCAN) Endoscopy (SCAN) Colonoscopy Report (SCAN) Encounter Details Date Type Department Care Team ([facility] Contact Info) Description 07/09/2018 Scan HEALTH INFO SRVCS Scanned, Documents Pathology (SCAN); Endoscopy (SCAN); Colonoscopy Report (SCAN) Social History Tobacco Use Types Packs/Day [...] on file Legal Sex Male 11:26 AM CORRAL BOSS Gender Identity Not on file Sexual Orientation Not on file COVID-19 Exposure Response Date Recorded In the last 10 days, have yo u been in contact with someone who was confirmed or suspected to have Coronavirus/COVID-19? No / Unsure 02/06/2022 10:01 AM CDT documented as of this encounter Plan of Treatment Upcoming Encounters Date Type Department Care Team ([facility] Contact Info) Description 09/10/2024 11:30 AM CORRAL BOSS Appointment [facility] [address] [place], [place] [phone] Zay Juárez [place] [address] [facility] [address] [place] [address] 10/25/2024 9:20 AM CORRAL BOSS Office Visit [facility] Family & Internal Medicine - [place] [address] [place] [address] Johnathon Braga, [address] [place] [address] 11/21/2024 9:40 AM CDT Office Visit [facility] Multispecialty Care - [facility] 3 [facility], [address] [place] [address] Shelli Gonzalez MD 3 [place] [address] documented as of this encounter Procedures Procedure Name Priority Date/Time Associated Diagnosis Comments PATHOLOGY GENERIC (SCAN ORDER) 07/09/2018 ENDOSCOPY (SCAN ORDER) 07/09/2018 COLONOSCOPY GENERIC (SCAN ORDER) 07/09/2018 documented in this encounter Results * COLONOSCOPY GENERIC (07/09/2018) 07/09/2018 Narrative 07/09/2018 Ordered by an unspecified provider. us Documents Scanned SCANNING Final Result * ENDOSCOPY (07/09/2018) 07/09/2018 Narrative 07/09/2018 Ordered by an unspecified provider. us Documents Scanned SCANNING Final Result * PATHOLOGY GENERIC (07/09/2018) 07/09/2018 Narrative 07/09/2018 Ordered by an unspecified provider. us Documents Scanned SCANNING Final Result documented in this encounter Visit Diagnoses Not on filedocumented in this encounter Care Teams Ostrich Farmer Relationship Specialty Start Date End Date Johnathon Braga DO [address] [place] [address] PCP - General FAMILY PRACTICE 10/31/20 documented as of this encounter
--- OUTSIDE RECORDS SUMMARY | 2024-09-03 07:53 | XMS_ITS | Encounter Summary ---
Author Organization [facility] Address [address] [place] [address]. [place], [place] [address] [place] [address] Care Team Providers Care Food Cart Attendant Name Role Phone Johnathon Braga Primary Care Provider + Encounter Details Date Type Department Care Team (Latest Contact Info) Description 11/02/2020 Scan HEALTH INFO SRVCS Scanned, Documents Social [...] on file Legal Sex Male 11:26 AM INSTRUCTIONAL INTERVENTIONIST Gender Identity Not on file Sexual Orientation Not on file COVID-19 Exposure Response Date Recorded In the last month, have you been in contact with someone who was confirmed or suspected to have Coronavirus / COVID-19? No / Unsure 10/31/2020 2:18 PM INSTRUCTIONAL INTERVENTIONIST documented as of this encounter Plan of Treatment Upcoming Encounters Date Type Department Care Team (Late st Contact Info) Description 09/10/2024 11:30 AM INSTRUCTIONAL INTERVENTIONIST Appointment [facility] [address] [place] [address] Zay Juá[place] [address] [facility] [address] [place] [address] 10/25/2024 9:20 AM INSTRUCTIONAL INTERVENTIONIST Office Visit [facility] Family & Internal Medicine - [place] [address] [place] [address] Johnathon Braga DO [address] [place] [address] 11/21/2024 9:40 AM CDT Office Visit [facility] Multispecialty Care - [address], [address] [place] [address] Shelli Gonzalez MD 3 [place] [address] documented as of this encounter Visit Diagnoses Not on filedocumented in this encounter Additional Health Concerns Assessment Noted Time PHQ-9 Depression Total Score: 5 10/31/19 21 2:44 PM INSTRUCTIONAL INTERVENTIONIST documented as of this encounter Care Teams Food Cart Attendant Relationship Specialty Start Date End Date Johnathon Braga DO [address] [place] [address] PCP - General FAMILY PRACTICE 10/31/20 documented as of this encounter
--- OUTSIDE RECORDS SUMMARY | 2024-09-03 07:53 | XMS_ITS | Encounter Summary ---
Author Organization [facility] Address [address] [place] [address]. [place] [address] [place] [address] Care Team Providers Care Paper Cup Machine Tender Name Role Phone Johnathon Braga Timbo SHELTON Primary Care Provider + Encounter Details Date Type Department Care Team (Late st Contact Info) Description 06/26/2022 Orders Only [facility] Medical Group Multispecialty Care - [facility] 3 [facility], [address] [place] [address] Giuseppe Da Silva MD 1 [place] [address] Social History Tobacco Use Types Packs/Day Years [...] on file Legal Sex Male 11:26 AM FOOD INSPECTOR Gender Identity Not on file Sexual [...] st Contact Info) Description 09/10/2024 11:30 AM FOOD INSPECTOR Appointment [facility] [address] [place] [address] Zay Juárez [place] [address] [facility] [address] [place] [address] 10/25/2024 9:20 AM FOOD INSPECTOR Office Visit [facility] Family & Internal Medicine - [address] [address] Johnathon Braga DO [address] [place] [address] 11/21/2024 9:40 AM CDT Office Visit [facility] Multispecialty Care - [facility] 3 [facility], [address] [place] [address] Shelli Gonzalez MD 3 [place] [address] documented as of this encounter Visit Diagnoses Diagnosis B12 deficiency- Primary Other B-complex deficiencies documented in this encounter Additional Health Concerns Assessment Noted Time PHQ-9 Depression Total Score: 5 10/31/19 21 2:44 PM FOOD INSPECTOR documented as of this encounter Care Teams Paper Cup Machine Tender Relationship Specialty Start Date End Date Johnathon Braga DO [address] [place] [address] PCP - General FAMILY PRACTICE 10/31/20 documented as of this encounter
--- OUTSIDE RECORDS SUMMARY | 2024-09-03 07:53 | XMS_ITS | Encounter Summary ---
Author Organization [facility] Address [address] [place] [address]. [place], [place] [address] [place] [address] Care Team Providers Care Residential Solar Sales Consultant Name Role Phone Johnathon Braga Primary Care Provider + Encounter Details Date Type Department Care Team (Latest Contact Info) Description 06/21/2022 Travel Social History Tobacco Use Types Packs/Day [...] on file Legal Sex Male 11:26 AM CHAINSTITCH SEAT JOINER Gender Identity Not on file Sexual Orientation [...] st Contact Info) Description 09/10/2024 11:30 AM CHAINSTITCH SEAT JOINER Appointment [facility] [address] [place] [address] Zay Juárez [place] [address] [address] 10/25/2024 9:20 AM CHAINSTITCH SEAT JOINER Office Visit [facility] Family & Internal Medicine - [place] [address] [place] [address] Johnathon Braga DO [address] [place] [address] 11/21/2024 9:40 AM CDT Office Visit [facility] Multispecialty Care - [facility] 3 [facility], [address] [place] [address] Shelli Gonzalez MD 3 [place] [address] documented as of this encounter Visit Diagnoses Not on filedocumented in this encounter Additional Health Concerns Assessment Noted Time PHQ-9 Depression Total Score: 5 10/31/19 2:44 PM CHAINSTITCH SEAT JOINER documented as of this encounter Care Teams Residential Solar Sales Consultant Relationship Specialty Start Date End Date Johnathon Braga DO [address] [place] [address] PCP - General FAMILY PRACTICE 10/31/20 documented as of this encounter
--- OUTSIDE RECORDS SUMMARY | 2024-09-03 07:53 | XMS_ITS | Encounter Summary ---
Author Organization [facility] Address [address] [place] [address]. [place], [place] [address] [place] [address] Care Team Providers Care Automotive Electrician Name Role Phone Johnathon Braga DO Primary Care Provider + Encounter Details Date Type Department Care Team (Latest Contact Info) Description 06/03/2021 Scan HEALTH INFO SRVCS Scanned, Documents Social [...] on file Legal Sex Male 11:26 AM MARKETING FORECASTER Gender Identity Not on file Sexual Orientation [...] st Contact Info) Description 09/10/2024 11:30 AM MARKETING FORECASTER Appointment [facility] [address] [place] [address] Zay Juárez [place] [address] [facility] [address] [place] [phone] 10/25/2024 9:20 AM MARKETING FORECASTER Office Visit [facility] Family & Internal Medicine - [place] [address] [place] [address] Johnathon Braga DO [address] [place] [address] 11/21/2024 9:40 AM CDT Office Visit [facility] Multispecialty Care - [address], [address] [place] [address] Shelli Gonzalez MD 3 [place] [address] documented as of this encounter Visit Diagnoses Not on filedocumented in this encounter Additional Health Concerns Assessment Noted Time PHQ-9 Depression Total Score: 5 10/31/19 21 2:44 PM MARKETING FORECASTER documented as of this encounter Care Teams Automotive Electrician Relationship Specialty Start Date End Date Johnathon Braga DO [address] [place] [address] PCP - General FAMILY PRACTICE 10/31/20 documented as of this encounter
--- OUTSIDE RECORDS SUMMARY | 2024-09-03 07:53 | XMS_ITS | Encounter Summary ---
Author Organization [facility] Address [address] [place] [address]. [place], [place] [address] [place] [address] Care Team Providers Care Sports Manager Name Role Phone Johnathon Braga Timbo SHELTON Primary Care Provider + Reason for Visit * Reason Onset Date Comments Question 08/01/2022 Encounter Details Date Type Department Care Team (Late st Contact Info) Description 08/01/2022 Telephone [facility] Medical Group Multispecialty Care - [facility] 3 [facility], [address] [place] [address] Giuseppe Da Silva MD 1 [place] [address] Question Social History Tobacco Use Types Packs/Day [...] on file Legal Sex Male 11:26 AM ACOUSTICS TEACHER Gender Identity Not on file Sexual Orientation Not on file documented as of this encounter Progress Notes * Killian Brown LPN - 08/01/2022 2:18 PM CST Patients' Nayana was made aware of detail regarding patients' activity during the EEG. Patients' V/U. STICS TEACHER * Killian Brown LPN - 08/01/2022 2:18 PM CST ----- Message from Giuseppe Da Silva MD sent at 07/29/2022 7:20 AM ACOUSTICS TEACHER ----- Ok, we don't need to see him do any specific activity during the test so that information gathered was ok. If he was very active then we would not be able to read the EEG. ----- Message ----- From: Kate Julien MA Sent: 07/28/2022 3:46 PM ACOUSTICS TEACHER To: Giuseppe Da Silva MD STICS TEACHER documented in this encounter Plan of Treatment Upcoming Encounters Date Type Department Care Team (Late st Contact Info) Description 09/10/2024 11:30 AM ACOUSTICS TEACHER Appointment [facility] [address] [place] [address] Zay Juárez [place] [address] [facility] [address] [place] [address] 10/25/2024 9:20 AM ACOUSTICS TEACHER Office Visit [facility] Medical [facility] Family & Internal Medicine - [address] [address] Johnathon Braga DO [address] [place] [address] 11/21/2024 9:40 AM CDT Office Visit [facility] Multispecialty Care - [address], [address] [place] [address] Shelli Gonzalez MD 3 [place] [address] documented as of this encounter Visit Diagnoses Not on filedocumented in this encounter Additional Health Concerns Assessment Noted Time PHQ-9 Depression Total Score: 5 10/31/19 21 2:44 PM ACOUSTICS TEACHER documented as of this encounter Care Teams Sports Manager Relationship Specialty Start Date End Date Johnathon Braga DO [address] [place] [address] PCP - General FAMILY PRACTICE 10/31/20 documented as of this encounter
--- OUTSIDE RECORDS SUMMARY | 2024-09-03 07:53 | XMS_ITS | Encounter Summary ---
Author Organization [facility] Address [address] [place] [address]. [place], [place] [address] [place] [address] Care Team Providers Care Manufacturing Automation Engineer Name Role Phone Johnathon Braga Primary Care Provider + Encounter Details Date Type Department Care Team (Latest Contact Info) Description 01/30/2021 Travel Social History Tobacco Use Types Packs/Day [...] on file Legal Sex Male 11:26 AM CLINIC SUPERVISOR Gender Identity Not on file Sexual [...] st Contact Info) Description 09/10/2024 11:30 AM CLINIC SUPERVISOR Appointment [facility] [address] [place] [address] Zay Juárez [place] [address] [address] 10/25/2024 9:20 AM CLINIC SUPERVISOR Office Visit [facility] Family & Internal Medicine - [place] [address] [place] [address] Johnathon Braga DO [address] [place] [address] 11/21/2024 9:40 AM CDT Office Visit [facility] Multispecialty Care - [facility] 3 [facility], [address] [place] [address] Shelli Gonzalez MD 3 [place] [address] documented as of this encounter Visit Diagnoses Not on filedocumented in this encounter Additional Health Concerns Assessment Noted Time PHQ-9 Depression Total Score: 5 10/31/19 21 2:44 PM CLINIC SUPERVISOR documented as of this encounter Care Teams Manufacturing Automation Engineer Relationship Specialty Start Date End Date Johnathon Braga DO [address] [place] [address] PCP - General FAMILY PRACTICE 10/31/20 documented as of this encounter
--- OUTSIDE RECORDS SUMMARY | 2024-09-03 07:53 | XMS_ITS | Encounter Summary ---
Author Organization [facility] Address [address] [place] [address]. [place], [place] [phone] [place] [address] Care Team Providers Care Professor Of Genetics Name Role Phone Johnathon Braga DO Primary Care Provider + Reason for Visit * Reason Comments Hypertension follow up Ear Problem right ear for 1 week Encounter Details Date Type Department Care Team (Late st Contact Info) Description 01/30/2021 2:20 PM CDT Office Visit [facility] Family & Internal Medicine [facility] [address] [place] [address] Johnathon Braga DO [address] [place], [place] [id number] Hypertension (follow up ); Ear Problem (right ear for 1 week ) Social History Tobacco Use Types Packs/Day [...] on file Legal Sex Male 11:26 AM BAKERY PRODUCTS CHECKER Gender Identity Not on file Sexual Orientation Not on file COVID-19 Exposure Response Date Recorded In the last month, have you been in contact with someone who was confirmed or suspected to have Coronavirus / COVID-19? No / Unsure 01/30/2021 2:02 PM CDT documented as of this encounter Last Filed Vital Signs Vital Sign Reading Time Taken Comments Blood Pressure 126/64 01/30/2021 2:21 PM CDT Pulse 66 01/30/2021 2:21 PM CDT Temperature 36.8 ??C (98.2 ??F) 01/30/2021 2:21 PM CD T Respiratory Rate 16 01/30/2021 2:21 PM CDT Oxygen Saturation 96% 01/30/2021 2:21 PM CDT Inhaled Oxygen Concentration - - Weight 102.2 kg (225 lb 4.8 oz) 01/30/2021 2:21 PM CDT Height 180.3 cm (5' 11 ) 01/30/2021 2:21 PM CDT Body Mass Index 31.42 01/30/2021 2:21 PM CDT documented in this encounter Progress Notes * Johnathon Braga, - 01/30/2021 2:20 PM CDT Images from the original note were not included. GENERAL OFFICE VISIT Encounter Date: 01/30/2021 Chief Complaint: 65-year-old male presents for Hypertension (follow up ) and Ear Problem (right ear for 1 week ) HPI: Pt has drainage in his ear that is coming out of his right ear. He has had chills and sweats and fatigue. He did have a recent testosterone that was low on report, but his urologist Dr. Ayala has kept him on his current medication. Patient presents for follow-up on essential hypertension. Patient has had hypertension for multipleyears. Current medications include Amiloride, lisinopril, & HCTZ. Patient does take his/her blood pressure at home. Ranges are WNL. No side effects noted from medications. Concurrent conditions include Hyperlipidemia. Pt presents for follow-up on dizziness. At last OV, Pt was in ER yesterday for dizziness. Pt had extensive work-up including CT of head, EKG, CXR, andlabs. All were negative for acute pathology. Pt has notable history of dizziness in the past. It was suspected vertigo given his history. Pt's dizziness is better today. It is lingering, but better. We continued meclizine and ordered PT for vestibular therapy for pt. Pt was recommended to see Dr. Chow and Dr. Gallagher after most recent OV and was instructed to f/u with them accordingly based upon their recommendations as well. Pt did see Dr. Chow on 12/14/20 via VV. They stopped meclizine at Dr. Chow's office. He referred to neuropsych and recommended to consider change in psych medicines. They recommended one month f/u with Dr. Chow as well per VV. Pt was put on Lamictal by psych. He will be seeing Dr. Chow later this week. Patient presents for follow-up on HLD. Patient has had HLD for multiple years. Current medications include atorvastatin. Current side effects include none. Patient does need labs drawn today. Review of Systems [...] Gatherings with Friends and Family: ??? Attends Uatsdin Services: ??? Active Member of Clubs or Organizations: ??? Attends Club or Organization Meetings: ??? Marital Status: Intimate Partner Violence: ??? Fear of Current or Ex-Partner: ??? Emotionally Abused: ??? Physically Abused: ??? Sexually Abused: Immunization History Administered Date(s) Administered ? ? Avaamo (Decision Lens) COVID-19 AD26 VACCINE 0.5 ML IM SUSP 11/22/2020 ??? Td 05/04/2008 Current Outpatient Medications Medication Sig Dispense Refill ??? allopurinol 300 MG tablet Take 1 tablet (300 mg total) by mouth daily. 90 tablet 1 ??? amiloride-hydrochlorothiazide 5-50 MG tablet ??? atorvastatin 10 MG tablet nightly at bedtime. ??? CHLORTHALIDONE 25 MG tablet TAKE 1 TABLET (25 MG TOTAL) BY MOUTH DAILY. 30 tablet 2 ??? ciprofloxacin-dexamethasone otic suspension Place 4 drops into the right ear 2 (two) times daily for 10 days. 7.5 mL 0 ??? dextromethorphan-quiNIDine 20-10 MG Cap capsule Take by mouth 2 (two) times a day. ??? donepezil 10 MG Tab ??? fish oil 1000 MG Cap capsule Take by mouth 2 (two) times daily. ??? hydrOXYzine 50 MG tablet ??? lamoTRIgine 100 MG tablet ??? modafinil 200 MG tablet ??? Multiple [...] (300 mg total) by mouth daily. ??? amiloride-hydrochlorothiazide 5-50 MG tablet ??? atorvastatin 10 MG tablet nightly at bedtime. ??? CHLORTHALIDONE 25 MG tablet TAKE 1 TABLET (25 MG TOTAL) BY MOUTH DAILY. ??? dextromethorphan-quiNIDine 20-10 MG Cap capsule Take by mouth 2 (two) times a day. ??? donepezil 10 MG Tab ??? fish oil 1000 MG Cap capsule Take by mouth 2 (two) times daily. ??? hydrOXYzine 50 MG tablet ??? lamoTRIgine 100 MG tablet ??? modafinil 200 MG tablet ??? Multiple Vitamins-Minerals (CENTRUM ADULTS OR) Take 1 tablet by mouth daily. ??? testosterone cypionate 200 MG/ML injection ??? venlafaxine 75 MG tablet ??? vitamin D3, cholecalciferol, 1000 UNIT Tab tablet Take 2,000 Units by mouth daily. No current facility-administered medications on file prior to visit. Allergies Allergen Reactions ??? Carbamazepine Rash and Swelling Objective: Filed Vitals: 01/30/21 1421 BP: 126/64 Pulse: 66 Resp: 16 Temp: 98.2 ??F (36.8 ??C) TempSrc: Skin SpO2: 96% Weight: 102.2 kg (225 lb 4.8 oz) Height: 5' 11 (1.803 [...] Wily was seen today for hypertension and ear problem. Diagnoses and all orders for this visit: Chills - CBC W/DIFF AUTOMATED; Future - COMPREHENSIVE METABOLIC PANEL; Future - TSH W/REFLEX; Future - C-REACTIVE PROTEIN; Future - SED RATE, ERYTHROCYTE (ESR); Future - CBC W/DIFF AUTOMATED - COMPREHENSIVE METABOLIC PANEL - TSH W/REFLEX - C-REACTIVE PROTEIN - SED RATE, ERYTHROCYTE (ESR) - URINALYSIS WI REFLEX TO CULTURE; Future - URINALYSIS WI REFLEX TO CULTURE Hyperlipidemia, unspecified hyperlipidemia type - LIPID PANEL; Future - LIPID PANEL Fatigue, unspecified type - CBC W/DIFF AUTOMATED; Future - COMPREHENSIVE METABOLIC PANEL; Future - TSH W/REFLEX; Future - C-REACTIVE PROTEIN; Future - SED RATE, ERYTHROCYTE (ESR); Future - CBC W/DIFF AUTOMATED - COMPREHENSIVE METABOLIC PANEL - TSH W/REFLEX - C-REACTIVE PROTEIN - SED RATE, ERYTHROCYTE (ESR) - URINALYSIS WI REFLEX TO CULTURE; Future - URINALYSIS WI REFLEX TO CULTURE Acute swimmer's ear of right side - ciprofloxacin-dexamethasone otic suspension; Place 4 drops into the right ear 2 (two) times dailyfor 10 days. Encounter for long-term (current) drug use - LAMOTRIGINE (LAMICTAL):; Future - LAMOTRIGINE (LAMICTAL): Discussion/Summary: Will send out Ciprodex today for otitis externa. Given change in symptoms, will order labs as per above. F/u with specialists. Continue other meds. Will have pt f/u depending upon above testing. Consider shorter term follow-up based upon these new symptoms. Pt and v/u. Johnathon Braga DO documented in this encounter Plan of Treatment Upcoming Encounters Date Type Department Care Team (Late st Contact Info) Description 09/10/2024 11:30 AM BAKERY PRODUCTS CHECKER Appointment [facility] [address] [place] [address] Zay Juá[place] [address] [facility] [address] [place] [address] 10/25/2024 9:20 AM BAKERY PRODUCTS CHECKER Office Visit [facility] Family & Internal Medicine - [place] [address] [place] [address] [place] [address] [place] [address] 11/21/2024 9:40 AM CDT Office Visit [facility] Multispecialty Care - [address], [address] [place] [phone] Shelli Gonzalez MD [address] [place] [address] Scheduled Orders Name Type Priority Associated Diagnoses Orde r Schedule LAMOTRIGINE (LAMICTAL): Lab Routine Encounter for long-term (current) drug use Expected: 01/30/2021, Expires: 01/30/2022 documented as of this encounter Procedures Procedure Name Priority Date/Time Associated Diagnosis Comments LAMOTRIGINE (LAMICTAL): Routine 02/15/2021 2:59 PM CDT URINALYSIS WI REFLEX TO CULTURE Routine 02/04/2021 2:02 PM CDT TSH W/REFLEX Routine 02/04/2021 2:02 PM CDT Chills Fatigue, unspecified type SED RATE, ERYTHROCYTE (ESR) Routine 02/04/2021 2:02 PM CDT Chills Fatigue, unspecified type COMPREHENSIVE METABOLIC PANEL Routine 02/04/2021 2:02 PM CDT Chills Fatigue, unspecified type LIPID PANEL Routine 02/04/2021 2:02 PM CDT Hyperlipidemia, unspecified hyperlipidemia type C-REACTIVE PROTEIN Routine 02/04/2021 2: 02 PM CDT Chills Fatigue, unspecified type CBC W/DIFF AUTOMATED Routine 02/04/2021 2:02 PM CDT Chills Fatigue, unspecified type documented in this encounter Results * (ABNORMAL) LAMOTRIGINE (LAMICTAL): (02/15/2021 2:59 PM CDT) LAMOTRIGINE (LAMICTAL) 1.5(L) 4.0 - 18.0 mcg/mL [facility] Comment: This test was developed and its analytical performance characteristics have been determined by [employer]. It has not been cleared or approved by the FDA. This assay has been validated pursuant to the CLIA regulations and is used for clinical purposes. 02/15/2021 2:59 PM CDT 02/15/2021 3:01 PM CDT Narrative [facility] - 02/20/2021 3:04 PM CDT SPLIT 02/04/2021 FROM [id number] FASTING:YES FASTING: YES Johnathon Braga DO LABORATORY Final Re sult [facility] [address] [place] [address] * URINALYSIS WI REFLEX TO CULTURE (02/04/2021 2:02 PM CDT) COLOR (U) YELLOW YELLOW [facility] APPEARANCE SEMEN CLEAR CLEAR [facility] SPECIFIC GRAVITY (U) 1.018 1.001 - 1.035 [facility] PH (U) 5.5 5.0 - 8.0 [facility] URINE GLUCOSE NEGATIVE NEGATIVE [facility] BILIRUBIN (U) NEGATIVE NEGATIVE [facility] KETONE (U) NEGATIVE NEGATIVE [facility] BLOOD (U) NEGATIVE NEGATIVE [facility] PROTEIN (U) NEGATIVE NEGATIVE [facility] NITRITES NEGATIVE NEGATIVE [facility] LEUKOCYTES (U) NEGATIVE NEGATIVE [facility] WBC/HPF NONE SEEN < OR = 5 /HPF [facility] RBC/HPF NONE SEEN < OR = 2 /HPF [facility] SQUAMOUS EPITHELIAL (U) NONE SEEN < OR = 5 /HPF [facility] BACTERIA (U) NONE SEEN NONE SEEN /HPF [facility] HYALINE CASTS NONE SEEN NONE SEEN /LPF [facility] REFLEX URINE CULTURE: [facility] Comment:NO CULTURE INDICATED 02/04/2021 2:02 PM CDT 02/04/2021 2:04 PM CDT Narrative [facility] - 02/05/2021 9:23 AM CDT FASTING:YES MULTIPLE TESTING PRIORITIES; ROUTINE TESTING TO FOLLOW. FASTING: YES Johnathon Braga DO URINE ORDERABLES Final R esult Performing Organization Address [facility] [[email or web address]] Co de Phone Number [facility] [address] [place] [address] * SED RATE, ERYTHROCYTE (ESR) (02/04/2021 2:02 PM CDT) SED RATE 2 < OR = 20 mm/h [facility] 02/04/2021 2:02 PM CDT 02/04/2021 2:04 PM CDT Narrative [facility] - 02/05/2021 9:23 AM CDT FASTING:YES MULTIPLE TESTING PRIORITIES; ROUTINE TESTING TO FOLLOW. FASTING: YES Johnathon Braga DO LABORATORY Final Re sult Performing Organization Address [facility] [[email or web address]] Co de Phone Number [facility] [address] [place] [address] * C-REACTIVE PROTEIN (02/04/2021 2:02 PM CDT) C-REACTIVE PROTEIN 1.4 <8.0 mg/L [facility] 02/04/2021 2:02 PM CDT 02/04/2021 2:04 PM CDT Narrative [facility] - 02/05/2021 9:23 AM CDT FASTING:YES MULTIPLE TESTING PRIORITIES; ROUTINE TESTING TO FOLLOW. FASTING: YES Johnathon Braga DO LABORATORY Final Re sult [facility] [address] [place] [address] * (ABNORMAL) LIPID PANEL (02/04/2021 2:02 PM CDT) Pathologist [facility] CHOLESTEROL 143 <200 mg/dL [facility] HDL 36(L) > OR = 40 mg/dL [facility] TRIGLYCERIDES 149 <150 mg/dL [facility] LDL (CALCULATED) 82 mg/dL (calc) [facility] Comment: Reference range: <100 Desirable range <100 mg/dL for primary prevention; ?? <70 mg/dL for patients with CHD or diabetic patients with > or = 2 CHD risk factors. LDL-C is now calculated using the Jimbo-David calculation, which is a validated novel method providing better accuracy than the Friedewald equation in the estimation of LDL-C. Jibmo SS et al. YAMILET. 2013;310(19): 5231-2668 (http://education.Life800.ClearSaleing/faq/ECU940) CHOL/HDL RATIO 4.0 <5.0 (calc) [facility] NON HDL CHOLESTEROL 107 <130 mg/dL (calc) [facility] Comment: For patients with diabetes plus 1 major ASCVD risk factor, treating to a non-HDL-C goal of <100 mg/dL (LDL-C of <70 mg/dL) is considered a therapeutic option. 02/04/2021 2:02 PM CDT 02/04/2021 2:04 PM CDT Narrative [facility] - 02/05/2021 9:23 AM CDT FASTING:YES MULTIPLE TESTING PRIORITIES; ROUTINE TESTING TO FOLLOW. FASTING: YES Johnathon Braga DO LABORATORY Final Re sult Performing Organization Address [facility] de Phone Number [facility] [address] [place] [address] * TSH W/REFLEX (02/04/2021 2:02 PM CDT) TSH 1.53 0.40 - 4.50 mIU/L [facility] 02/04/2021 2:02 PM CDT 02/04/2021 2:04 PM CDT Narrative [facility] - 02/05/2021 9:23 AM CDT FASTING:YES MULTIPLE TESTING PRIORITIES; ROUTINE TESTING TO FOLLOW. FASTING: YES Johnathon Braga DO LABORATORY Final Re sult Performing Organization Address [facility] de Phone Number [facility] [address] [place] [address] * COMPREHENSIVE METABOLIC PANEL (02/04/2021 2:02 PM CDT) GLUCOSE 87 65 - 99 mg/dL [facility] Comment: ? Fasting reference interval BUN 15 7 - 25 mg/dL [facility] CREATININE S/P/B 1.06 0.70 - 1.25 mg/dL [facility] Comment: For patients >49 years of age, the reference limit for Creatinine is approximately 13% higher for people identified as -Haitian. EGFR NON-AFR. AMER. 74 > OR = 60 mL/min/1 .73m2 [facility] EGFR AFR. AMER. 86 > OR = 60 mL/min/1 .73m2 [facility] BUN CREATININE RATIO NOT APPLICABLE 6 - 22 (calc) [facility] SODIUM S/P/B 141 135 - 146 mmol/L [facility] POTASSIUM S/P/B 3.9 3.5 - 5.3 mmol/L [facility] CHLORIDE S/P/B 104 98 - 110 mmol/L [facility] CO2 29 20 - 32 mmol/L [facility] CALCIUM S/P/B 9.5 8.6 - 10.3 mg/dL [facility] TOTAL PROTEIN S/P/B 7.0 6.1 - 8.1 g/dL [facility] ALBUMIN S/P/B 4.1 3.6 - 5.1 g/dL [facility] GLOBULIN 2.9 1.9 - 3.7 g/dL (calc) [facility] ALBUMIN/GLOBULIN RATIO 1.4 1.0 - 2.5 (calc) [facility] BILIRUBIN TOTAL S/P/B 0.7 0.2 - 1.2 mg/dL [facility] ALKALINE PHOSPHATASE S/P/B 131 35 - 144 U/L [facility] AST 18 10 - 35 U/L [facility] ALT 21 9 - 46 U/L [facility] 02/04/2021 2:02 PM CDT 02/04/2021 2:04 PM CDT Narrative [facility] - 02/05/2021 9:23 AM CDT FASTING:YES MULTIPLE TESTING PRIORITIES; ROUTINE TESTING TO FOLLOW. FASTING: YES us Johnathon Braga DO LABORATORY Final Re sult [facility] [address] [place] [address] * CBC W/DIFF AUTOMATED (02/04/2021 2:02 PM CDT) WBC 6.8 3.8 - 10.8 Thousand/u L [facility] RBC 5.38 4.20 - 5.80 Million/uL [facility] HGB 16.5 13.2 - 17.1 g/dL [facility] HCT 49.0 38.5 - 50.0 % [facility] MCV 91.1 80.0 - 100.0 fL [facility] MCH 30.7 27.0 - 33.0 pg [facility] MCHC 33.7 32.0 - 36.0 g/dL [facility] RDW 13.1 11.0 - 15.0 % [facility] PLT 163 140 - 400 Thousand/u L [facility] MPV 11.3 7.5 - 12.5 fL [facility] ABS. NEUTROPHILS 4,495 1,500 - 7,800 cells/uL [facility] ABS. LYMPHOCYTES 1,496 850 - 3,900 cells/uL [facility] ABS. MONOCYTES 530 200 - 950 cells/uL [facility] ABS. EOSINOPHILS 197 15 - 500 cells/uL [facility] ABS. BASOPHILS 82 0 - 200 cells/uL [facility] SEG NEUTROPHILS 66.1 % [facility] LYMPHOCYTES 22.0 % [facility] MONOCYTES 7.8 % [facility] EOSINOPHILS 2.9 % [facility] BASOPHILS 1.2 % [facility] 02/04/2021 2:02 PM CDT 02/04/2021 2:04 PM CDT Narrative [facility] - 02/05/2021 9:23 AM CDT FASTING:YES MULTIPLE TESTING PRIORITIES; ROUTINE TESTING TO FOLLOW. FASTING: YES Johnathon Braga DO LABORATORY Final Re sult [facility] [address] [place] [address] documented in this encounter Visit Diagnoses Diagnosis Chills- Primary Chills (without fever) Hyperlipidemia, unspecified hyperlipidemia type Fatigue, unspecified type Acute swimmer's ear of right side Encounter for long-term (current) drug use Encounter for long-term (current) use of other medications Essential hypertension Unspecified essential hypertension documented in this encounter Additional Health Concerns Assessment Noted Time PHQ-9 Depression Total Score: 5 10/31/19 21 2:44 PM BAKERY PRODUCTS CHECKER documented as of this encounter Care Teams Professor Of Genetics Relationship Specialty Start Date End Date Johnathon Braga DO [address] [place] [address] PCP - General FAMILY PRACTICE 10/31/20 documented as of this encounter
--- OUTSIDE RECORDS SUMMARY | 2024-09-03 07:53 | XMS_ITS | Encounter Summary ---
Author Organization [facility] Address [address] [place] [address]. [place], [place] [id number] [place] [address] Care Team Providers Care Buck Swamper Name Role Phone Johnathon Braga DO Primary Care Provider + Reason for Visit * Reason Onset Date Comments Results 02/12/2021 Encounter Details Date Type Department Care Team (Late st Contact Info) Description 02/12/2021 Telephone [facility] Family & Internal Medicine [facility] [address] [place] [address] Johnathon Braga DO [address] [place], [place] [phone] Results Social History Tobacco Use Types Packs/Day [...] on file Legal Sex Male 11:26 AM ADOLESCENT PSYCHIATRIST Gender Identity Not on file Sexual Orientation Not on file COVID-19 Exposure Response Date Recorded In the last month, have you been in contact with someone who was confirmed or suspected to have Coronavirus / COVID-19? No / Unsure 01/30/2021 2:02 PM CDT documented as of this encounter Progress Notes * Rosalba Perez MA - 02/12/2021 9:08 AM CDT Patient POA notified and v/u , lamotrigine level will be obtained soon because he cant have it drawn until 6 hours after he has taken the medication. POA will call and schedule lab appt * Rosalba Perez MA - 02/12/2021 9:07 AM CDT ----- Message from Johnathon Braga DO sent at 02/12/2021 8:48 AM CDT ----- Most of pt's symptoms are essentially unremarkable; HDL is mildly low which I recommend exercise for this. The lamotrigine level is not yet back; did pt obtain this? documented in this encounter Plan of Treatment Upcoming Encounters Date Type Department Care Team (Late st Contact Info) Description 09/10/2024 11:30 AM ADOLESCENT PSYCHIATRIST Appointment [facility] [address] [place] [address] Zay Juá[place] [address] [address] 10/25/2024 9:20 AM ADOLESCENT PSYCHIATRIST Office Visit [facility] Family & Internal Medicine - [address] [address] Johnathon Braga DO [address] [place] [address] 11/21/2024 9:40 AM CDT Office Visit [facility] Multispecialty Care - [address], [address] [place] [address] Shelli Gonzalez MD [address] [place] [address] documented as of this encounter Visit Diagnoses Not on filedocumented in this encounter Additional Health Concerns Assessment Noted Time PHQ-9 Depression Total Score: 5 10/31/19 21 2:44 PM ADOLESCENT PSYCHIATRIST documented as of this encounter Care Teams Buck Swamper Relationship Specialty Start Date End Date Johnathon Braga DO [address] [place] [address] PCP - General FAMILY PRACTICE 10/31/20 documented as of this encounter
--- OUTSIDE RECORDS SUMMARY | 2024-09-03 07:53 | XMS_ITS | Encounter Summary ---
Author Organization [facility] Address [address] [place] [address]. [place], [place] [phone] [place] [address] Care Team Providers Care Stagecraft Teacher Name Role Phone Johnathon Braga Primary Care Provider + Encounter Details Date Type Department Care Team (Latest Contact Info) Description 12/03/2020 Travel Social History Tobacco Use Types Packs/Day [...] Description 09/10/2024 11:30 AM ESTIMATOR LUMBER Appointment [facility] [address] [place] [address] Zay Juárez [place] [address] [address] 10/25/2024 9:20 AM ESTIMATOR LUMBER Office Visit [facility] Family & Internal Medicine - [place] [address] [place] [address] Johnathon Braga DO [address] [place] [address] 11/21/2024 9:40 AM CDT Office Visit [facility] Multispecialty Care - [facility] [address] [facility], [address] [place] [phone] Shelli Gonzalez MD [address] [place] [address] documented as of this encounter Visit Diagnoses Not on filedocumented in this encounter Additional Health Concerns Assessment Noted Time PHQ-9 Depression Total Score: 5 10/31/19 21 2:44 PM ESTIMATOR LUMBER documented as of this encounter Care Teams Stagecraft Teacher Relationship Specialty Start Date End Date Johnathon Braga DO [address] [place] [phone] PCP - General FAMILY PRACTICE 10/31/20 documented as of this encounter
--- OUTSIDE RECORDS SUMMARY | 2024-09-03 07:53 | XMS_ITS | Encounter Summary ---
Author Organization [facility] Address [address] [place] [address]. [place], [place] [id number] [place] [address] Care Team Providers Care Plant Supervisor Name Role Phone Johnathon Braga Timbo SHELTON Primary Care Provider + Reason for Visit * Reason Onset Date Comments Results 08/28/2022 Encounter Details Date Type Department Care Team (Late st Contact Info) Description 08/28/2022 Telephone [facility] Multispecialty Care - [address], [address] [place] [address] Giuseppe Da Silva MD [address] [place] [address] Results Social History Tobacco Use Types Packs/Day [...] on file Legal Sex Male 11:26 AM PHARMACY SPECIALIST Gender Identity Not on file Sexual Orientation Not on file COVID-19 Exposure Response Date Recorded In the last 10 days, have yo u been in contact with someone who was confirmed or suspected to have Coronavirus/COVID-19? No / Unsure 08/27/2022 9:51 AM PHARMACY SPECIALIST documented as of this encounter Progress Notes * Genny Jones MA - 08/28/2022 8:18 AM CST Contacted patients about results. understood results. MACY SPECIALIST * Genny Jones MA - 08/28/2022 8:18 AM CST ----- Message from Giuseppe Da Silva MD sent at 08/28/2022 8:15 AM PHARMACY SPECIALIST ----- Can you please let them know that their EMG/NCS shows that he has peripheral neuropathy in the legs. MACY SPECIALIST documented in this encounter Plan of Treatment Upcoming Encounters Date Type Department Care Team (Late st Contact Info) Description 09/10/2024 11:30 AM PHARMACY SPECIALIST Appointment [facility] [address] [place], [place] [id number] Zay [place] [id number] [address] 10/25/2024 9:20 AM PHARMACY SPECIALIST Office Visit [facility] Family & Internal Medicine - [id number] [place] [address] Johnathon Braga DO [address] [place] [address] 11/21/2024 9:40 AM CDT Office Visit [facility] Multispecialty Care - [address], [address] [place] [phone] Shelli Gonzalez MD [address] [place] [address] documented as of this encounter Visit Diagnoses Not on filedocumented in this encounter Additional Health Concerns Assessment Noted Time PHQ-9 Depression Total Score: 5 10/31/19 21 2:44 PM PHARMACY SPECIALIST documented as of this encounter Care Teams Plant Supervisor Relationship Specialty Start Date End Date Johnathon Braga DO [address] [place] [address] PCP - General FAMILY PRACTICE 10/31/20 documented as of this encounter
--- OUTSIDE RECORDS SUMMARY | 2024-09-03 07:53 | XMS_ITS | Encounter Summary ---
Author Organization [facility] Address [address] [place] [address]. [place], [place] [id number] [place] [address] Care Team Providers Care Elderly Companion Name Role Phone Johnathon Braga Primary Care Provider + Reason for Visit * Reason Comments Lab (SCAN) Encounter Details Date Type Department Care Team (Latest Contact Info) Description 03/11/2022 Scan HEALTH INFO [facility] Scanned, Documents Lab [...] file Legal Sex Male 11:26 AM CLINICAL APPLICATION CONSULTANT Gender Identity Not on file Sexual [...] Contact Info) Description 09/10/2024 11:30 AM CLINICAL APPLICATION CONSULTANT Appointment [facility] [address] [place] [address] Zay Juá[place] [address] [facility] [address] [place] [address] 10/25/2024 9:20 AM CLINICAL APPLICATION CONSULTANT Office Visit [facility] Family & Internal Medicine - [address] [phone] [place] [address] [place] [address] 11/21/2024 9:40 AM CDT Office Visit [facility] Multispecialty Care - [facility] [address] [facility], [address] [place] [phone] Shelli Gonzalez MD [address] [place] [address] documented as of this encounter Procedures Procedure Name Priority Date/Time Associated Diagnosis Comments OUTSIDE LAB (SCAN ORDER) 03/11/2022 OUTSIDE LAB (SCAN ORDER) 03/11/2022 documented in this encounter Results * OUTSIDE LAB (SCAN) (03/11/2022) 03/11/2022 Narrative 03/11/2022 Ordered by an unspecified provider. us Documents Scanned SCANNING Final Result * OUTSIDE LAB (SCAN) (03/11/2022) 03/11/2022 Narrative 03/11/2022 Ordered by an unspecified provider. us Documents Scanned SCANNING Final Result documented in this encounter Visit Diagnoses Not on filedocumented in this encounter Additional Health Concerns Assessment Noted Time PHQ-9 Depression Total Score: 5 10/31/19 2:44 PM CLINICAL APPLICATION CONSULTANT documented as of this encounter Care Teams Elderly Companion Relationship Specialty Start Date End Date Johnathon Braga DO [address] [place] [address] PCP - General FAMILY PRACTICE 10/31/20 documented as of this encounter
--- OUTSIDE RECORDS SUMMARY | 2024-09-03 07:58 | XMS_ITS | Encounter Summary ---
Author Organization [facility] Address [address] [place] [address] Phone Care Team Providers Care Clinical Support Associate Name Role Phone KrisJohnathon alexis DO Primary Care Provide r Giuseppe Da Silva MD Unavailable [phone] Reason for Referral * Consultation (Routine) - Authorized Specialty Diagnoses / Procedures Referred By Jonah weber Referred To Contact Occupational Therapy Diagnoses Dementia, unspecified dementia severity, unspecified dementia type, unspecified whether behavioral, psychotic, or mood disturbance or anxiety (HCC) Nereyda Lindsay NP [address] [place] [address] Phone: tel: fax:[phone] External Order Referral ID Status Reason Start Date Expiration Date Visits Requested Visits Authorized [id number] Authorized Evaluate and Treat 05/25/2024 06/24/2025 24 24 Question Answer PTRFR OT Evaluate and Treat Therapy options discussed with patient? Yes Location provided for therapy services is: Patient requested/Patient preferred Please select the performing region: External Order [171] # of visits: 24 Comments Formal driving evaluation * Consultation (Routine) - Authorized Specialty Diagnoses / Procedures Referred By Jonah weber Referred To Contact Physical Therapy Diagnoses Dementia, unspecified dementia severity, unspecified dementia type, unspecified whether behavioral, psychotic, or mood disturbance or anxiety (HCC) Recurrent falls Nereyda Lindsay NP [address] [place] [address] Phone: tel: fax:[phone] Referral ID Status Reason Start Date Expiration Date Visits Requested Visits Authorized [id number] Authorized Evaluate and Treat 05/25/2024 06/24/2025 24 24 Question Answer PTRFR PT Evaluate and Treat Therapy options discussed with patient? Yes Location provided for therapy services is: Patient requested/Patient preferred Please select the performing region: External Order [171] # of visits: 24 Comments Improve balance, recurrent falls Encounter Details Date Type Department Care Team (Late st Contact Info) Description 05/25/2024 10:30 AM CDT Office Visit [facility] [address] [place] [address] Nereyda Lindsay NP [address] [place] [address] 952- Dementia, unspecified dementia severity, unspecified dementia type, unspecified whether behavioral, psychotic, or mood disturbance or anxiety (HCC) (Primary Dx); Recurrent falls Social History Tobacco Use Types Packs/Day Years Used Date Smoking Tobacco: Never Smokeless Tobacco: Never Tobacco Cessation:Counseling Given: Not Answered Alcohol Use Standard Drinks/Week Comments No 0 (1 standard drink = 0.6 oz pur e alcohol) Personal Safety Answer Date Recorded Getting School Help Needed Not on file 09/10 Sex and Gender Information Value Date Recorded Sex Assigned at Not on file 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 Gender Identity Not on file Sexual Orientation Not on file documented as of this encounter Last Filed Vital Signs Vital Sign Reading Time Taken Comments Blood Pressure 137/74 05/25/2024 10:11 AM CDT Pulse 53 05/25/2024 10:11 AM CDT Temperature 36.8 ??C (98.2 ??F) 05/25/2024 10:11 AM C DT Respiratory Rate - - Oxygen Saturation 96% 05/25/2024 10:11 AM CDT Inhaled Oxygen Concentration - - Weight 102.3 kg (225 lb 8 oz) 05/25/2024 10:11 A M CDT Height 180.3 cm (5' 11 ) 05/25/2024 10:11 AM CDT Body Mass Index 31.45 05/25/2024 10:11 AM CDT documented in this encounter Patient Instructions * Patient Instructions* Nereyda Lindsay NP - 05/25/2024 10:30 AM CDT Images from the original note were not included. AFTER VISIT SUMMARY [facility] Thank you for coming to the [facility] and for allowing us to participate in your medical care. Today, you came with your for your appointment with Nereyda Lindsay NP. FEEDBACK REGARDING BRAIN HEALTH We believe your memory and thinking difficulties are most likely due to head trauma. MEMORY AND THINKING SCORES Your test scores today were: MMSE (Mini Mental Status Exam): 27 /30. A perfect score on this test is 30. A score of of between 27-30 is considered normal. A score of 24-26 is considered mildly impaired. A score of 20-23 is impaired. Scores below 20 show moderate impairment and 10 or below shows severe impairment. Short Blessed Test: 2 . A perfect score on the Short Blessed Test is a 0 (higher score means poorer performance). A score of 4 or below is mild impairment. Scores of 5 or more indicate impairment. The maximum (worst) score is 28. RECOMMENDATIONS FOR FURTHER TESTING Additional Testing: Additional testing, including an a formal driving assessment has been recommended and will be scheduled by my office Referrals: I will request that an outpatient clinic visit be scheduled with the following service(s): Psychiatry - You used to have a psychiatrist. Nayana will reach out and see if she can get in contact with them. Primary Care: I have recommended that you follow-up with your primary care practitioner to discuss control of vascular risk factors (e.g., high blood pressure, high cholesterol, high blood glucose) MEDICATIONS Current Medications: We recommend you take quetiapine/Seroquel for agitation. We discussed this medication is not approved to treat dementia related psychosis, and there is an increased risk of mortality in elderly dementia patients on this class of drug (atypical antipsychotics). Most deaths are due to cardiovascular or infectious events. The extent to which increased mortality attributed to anti psychotic versus some patient characteristics is not clear. Common side effects are fatigue, dry mouth, dizziness, low blood pressure, constipation, abnormal movements, or tremor (let our office knowif you have any of these side effects). To improve compliance with pills, you should get an alarm pill box to remind you to take your medications. ADDITIONAL RECOMMENDATIONS Nutrition: We recommend that Wily Bahena eats a balanced diet, including fruits and vegetables daily and regular servings of fish. Alcohol Intake: You should not drink alcohol. Activity: We recommend that Wily Bahena engage in daily physical activity such as walking or stretching. Exercise improves blood flow to the brain, boosts energy level and mood, and improves sleep. It???s important Wily Bahena remains mobile to maintain his independence. Consider physical activities that may also be mentally or socially engaging, such as walking with a friend, taking a dance class, joining an exercise group or golfing. Incorporate activity that Wily Bahena enjoys so hewill continue to engage in it. For example, bike riding, gardening or walking the dog. Sleep: Sleep can have a big effect on your memory and thinking. Make sure you get a good night's sleep every night. Basic sleep hygiene entails getting up at the same time every morning, no napping or limiting naps to less than an hour and nap no later than 3pm, have a regular exercise schedule, nocaffeine for six hours before bedtime, and no watching TV or using the computer in your bedroom or at bedtime. Driving: Concerns about driving safety were raised at today's visit. A driving assessment is required to evaluate your safety to drive. Safety: We discussed safety in the home, including supervision of meals, medications and use of appliances. Legal: We suggested that you begin to plan for your future (Living Will, Power of Social Media Marketer for Health Care). You may wish to consult an green end man regarding these matters. Level of Care: You can continue to live independently with support from your family. RESEARCH STUDIES In our efforts to find better ways to diagnose and treat people with memory disorders, we conduct research studies. You can help by participating in research studies. There are many different types of research studies. You and your family and/or caregivers can decide if you want to participate in research and what type of research study would be best for you. As a patient at the [facility], you or your caregivers may be asked to sign a consentform so that some information about you may be included in the [facility] Data Repository. This is a list of people who have been seen in our clinic and can be used to help researchers at [facility] find people who might be interested in participating in research studies. If you signed this form, you might be contacted by some of these researchers to see if you might be interested in participating in a research project. You and family can decide if you want to hear moreabout these projects and if you would like to participate. Signing the [facility] Data Repository consent form does not mean that you are agreeing to be in a research project; it only means the investigators can contact you to see if you might be interested in research projects. RESOURCES FOR ADDITIONAL SUPPORT Alzheimer's Association [facility] Chapter: ; (toll free); http://www.alz.org, The Alzheimer's Association 06/04 Helpline provides reliable information and support to all those who need assistance. [facility]: [place] is to extend and improve quality time at home for people living with dementia and their care partners, or Memorycarehs.org. They provide family daycare provider support, education and skills. [facility] will make it easier for you to enhance your skills and adapt your home setting to meet the ever-changing demands of caregiving. Wendy Esquivel R.N., [employer]ures Trader, [address] [place] [address], ; Toll Free: ext. [phone] (toll free), , Email: The best way to reach our team is via My Chart. This is a secure way for us to communicate about your health care. Please call The My Chart Support Desk: [phone] for help with My Chart, or [phone] to obtain a link for access. FOLLOW-UP Future Appointments Date Time Provider Department Center 05/25/2024 10:30 AM Nereyda Lindsay NP [facility] 07/13/2024 11:30 AM Ingrid Goddard MD SLEEP [facility] We offer in person and telemedicine (virtual) visits. Please let us know your preference when scheduling. The individual who filled Paxil - Office phone Pager E-mail Ordering User Sunshine Kinney CMA -- -- [email or web address] Authorizing Provider Provider, MD Keith [phone] -- -- documented in this encounter Ordered Prescriptions Prescription Sig Dispense Quantity Refills Last Filled Start Date End Date QUEtiapine (SEROquel) 25 mg tabletIndications: Dementia, unspecified dementia severity, unspecified dementia type, unspecified whether behavioral, psychotic, or mood disturbance or anxiety (HCC) Take 0.5 tablets (12.5 mg total) by mouth nightly 30 tablet 3 05/25/2024 documented in this encounter Progress Notes * Nereyda Lindsay NP - 05/25/2024 10:30 AM CDT Images from the original note were not included. [facility] Follow-Up Visit [facility] Department of Neurology AGUEDA Barahona [id number] start time: 1022 Subjective Chief Complaint: Memory and thinking difficulty History of Present Illness: Mr. Bahena is a 68 y.o. male who comes to the [facility] today for further evaluationof his memory and thinking problems. Wily Bahena presents today with Nayana, his , who acts asa collateral source, or CS. Wily Bahena is in generally good health. Dementia History: Initial Visit: Date: 04/22/23 Provider: Dr. Scooby Delvalle Estimated Onset: 2017 First Problems Noted: Forgetfulness MMSE: 22 CDR: 0.5, SB: 3 Assessment: Mr. Bahena is a 67 y.o. gentleman with a family history of dementia, who presents with a 5 year history of stable cognitive decline after head trauma. The pattern of decline, findings on neurological examination, psychometric test results and my neurobehavioral examination confirm very mild dementia. The most likely etiologic cause is traumatic brain injury . Other diagnostic considerations include contributions from poor sleep, untreated sleep apnea, medication effects and mood disorder . At the time of this visit, it is my opinion that he is able to make independent medical decisions. Interval History: I was able to speak with the CS(s), who shared the following about Wily Bahena: Mood/Behavior: Agitated, he gets upset easily - sees a psychiatrist Sleep: Sleeps on a recliner, sleeps periodically through the day, sleeps on and off all night Appetite: Good Safety: Driving: Yes, concerns about his anger while driving Alcohol/Drugs: None Falls: Yes, falls every couple of months Emergency visits: No Memory: Since his last assessment, Wily Bahena's memory has continued to gradually decline. he has difficulty managing medications. His manages this, but he stills forget to take them. He will take morning and night meds together. He requires assistance managing appointments. He is not reliable in recalling details of recent events. He will repeat questions, stories and statements within minutes. Orientation: He usually knows the day of the week, month and year. He has difficulty with time relationships. Heis able to navigate in familiar areas only. He does not wander. Judgement and Problem Solving: Judgment and problem solving abilities are only fair. He has never managed finances. He has difficulty with calculating a tip, simple calculations, balancing a checkbook, and understanding more complex issue. He can make a menu selection. He is appropriate in social situations. Community Affairs: He has never been active in the community. He continues to drive despite the following concerns: hegets upset with other drivers . Home and Hobbies: At home, he is able to manage simple chores (e.g., washing the dishes, making his bed, and light cleaning). He can BBQ, he does okay still. He is no longer able to manage routine home maintenance. Heis able to operate household appliances including the microwave . He does not use the other appliances. He has difficulty using technology, including the television remote and cell phone. He does notlike using technology. Personal Care: He is fully capable of self care. Review of Systems Review of Systems Constitutional: Negative. HENT: Negative. Eyes: Negative. Respiratory: Negative. Cardiovascular: Negative. Gastrointestinal: Negative. Genitourinary: Negative. Musculoskeletal: Negative. Skin: Negative. Neurological: Negative. Endo/Heme/Allergies: Negative. Psychiatric/Behavioral: Positive for memory loss. Patient History: Active Problems: There is no problem list on file for this patient. Medications: Current Outpatient Medications: allopurinol (ZYLOPRIM) 300 mg tablet, Take 1 tablet (300 mg total) by mouth, Disp: , Rfl: alpha lipoic acid 600 mg tablet, Take 1 tablet by mouth daily, Disp: , Rfl: atorvastatin (LIPITOR) 10 mg tablet, , Disp: , Rfl: chlorthalidone 25 mg tablet, Take 1 tablet (25 mg total) by mouth daily, Disp: , Rfl: cholecalciferol (VITAMIN D-3) 25 mcg (1,000 unit) tablet, Take 2 tablets (2,000 Units total) by mouth daily, Disp: , Rfl: cyanocobalamin, vitamin B-12, (VITAMIN B-12 ORAL), Take by mouth, Disp: , Rfl: donepeziL (ARICEPT) 10 mg tablet, Take 1 tablet (10 mg total) by mouth nightly, Disp: , Rfl: gabapentin (NEURONTIN) 600 mg tablet, Take 1 tablet (600 mg total) by mouth 3 (three) times a day, Disp: , Rfl: geriatric multivitamin-min tablet, Take 1 tablet by mouth daily, Disp: , Rfl: glipiZIDE XL (GLUCOTROL XL) 5 mg 24 hr tablet, Take 1 tablet (5 mg total) by mouth daily, Disp: , Rfl: hydrOXYzine (VISTARIL) 50 mg capsule, Take 1 capsule (50 mg total) by mouth 3 (three) times a day as needed, Disp: , Rfl: lamoTRIgine (LaMICtal) 100 mg tablet, Take 1 tablet (100 mg total) by mouth 2 (two) times a day, Disp: , Rfl: meclizine (ANTIVERT) 25 mg tablet, 3 (three) times a day as needed, Disp: , Rfl: 0 omega-3 fatty acids-fish oil 300-1,000 mg capsule, Take 2 capsules (2 g total) by mouth daily, Disp: , Rfl: PARoxetine (PAXIL) 20 mg tablet, Take 1 tablet (20 mg total) by mouth daily, Disp: , Rfl: propranolol LA (INDERAL LA) 60 mg 24 hr capsule, Take 1 capsule (60 mg total) by mouth daily, Disp:, Rfl: tamsulosin (FLOMAX) 0.4 mg extended release capsule, Take 1 capsule (0.4 mg total) by mouth daily, Disp: , Rfl: testosterone cypionate (DEPO-TESTOTERONE) 200 mg/mL injection, Inject 1 mL (200 mg total) into the muscle as instructed every 21 days, Disp: , Rfl: 5 Allergies: Allergies Allergen Reactions Carbamazepine Rash and Swelling Family History: Family History Problem Relation Age of Onset Memory loss Brother 70 Social History: Social History Tobacco Use Smoking status: Never Smokeless tobacco: Never Substance and Sexual Activity Drug use: No Sexual activity: Not on file Alcohol Use: Not At Risk (10/31/2020) Received from [facility] AUDIT-C Frequency of Alcohol Consumption: Never Average Number of Drinks: Not on file Frequency of Binge Drinking: Not on file Objective Medical records reviewed (prior [facility] visits, Neuropsychiatric Testing, labs and imaging). Imaging: MRI Brain and Volumetric W WO Contrast 05/08/23 Narrative & Impression EXAMINATION: Magnetic resonance imaging (MRI) of the brain and brainstem without and with contrast HISTORY: 67-year-old man with 5 year history of stable cognitive decline following head trauma. TECHNIQUE: Multiplanar multi-weighted MRI of the brain and brainstem was performed without and with intravenous contrast using a protocol specific to assess patients with memory complaints. T1-weighted sagittal MPRage images of the brain were postprocessed on ROKT to generate segmented brain volumes using commercial software. Results were compared to 10th and 90th percentiles of healthy age-/gender-matched population. Graphs were sent to [facility] and [employer] PACS. The protocol specifically includes FLAIR to assess for potential infarcts and white matter lesions associated with vascular cognitive impairment and with susceptibility sensitive sequences for detection of cerebral microhemorrhages. Contrast information: 18 mL Gadoterate Meglumine COMPARISON: Outside hospital brain MRI dated 12/08/2017. FINDINGS: The scalp and calvarium are normal. The superior sagittal sinus demonstrates normal venous flow. The corpus callosum is normal in shape and signal intensity. The posterior fossa is unremarkable. The pituitary and sella are normal. The brainstem and craniocervical junction are unremarkable. Diffusion weighted images reveal no hyperintensities to suggest acute cerebral infarction. The susceptibility weighted sequences reveal no evidence of acute or chronic hemorrhage. Mild diffuse parenchymal volume loss with commensurate enlargement of the ventricles, within normal limits for the patient's age. The paranasal sinuses are normal. The visualized portions of the mastoids are unremarkable. The orbits appear normal. Normal flow voids are demonstrated in the carotid arteries and basilar artery. There is no abnormal contrast enhancement. QUANTITATIVE ASSESSMENT: Quantitative assessment was performed and is reported. Total intracranial volume (TIV): 1344.8 ml Brain: 1053.7 ml, 78.4% of TIV, 10%-90% range of 68.6-76.5, greater than the 90th percentile. Villagomez matter: 611.1 ml, 45.4% of TIV, 10%-90% range of 39.5-45.9, within 10th-90th percentile. White matter: 442.6 ml, 32.9% of TIV, 10%-90% range of 27.0-32.6 greater than the 90th percentile. Ventricles: 291.1 ml, 21.6% of TIV, 10%-90% range of 23.2-30.8, below the 90th percentile. QUALITATIVE ASSESSMENT: Small infarcts (< 10 mm): 0 Infarcts (>10 mm): None or location and number White matter hyperintensities (WMH)(Fazekas grade): 0 Prior cerebral microhemorrhages: None. New/incident cerebral microhemorrhages: None. Total cerebral microhemorrhages: None. Prior siderosis: None. New /incident siderosis: None. IMPRESSION: 1. No acute intracranial abnormality. 2. No significant volume loss or other specific abnormality to explain memory loss. Dictated by: Chito Bernal M.D. The radiology attending physician has personally reviewed this study, and had reviewed and/or edited this written report and agrees with it. Electronically signed by: Jimbo Gallo M.D. Labs: Ref Range & Units 10 mo ago TSH 0.27 - 4.20 uIU/mL 1.61 Component Ref Range & Units 1 yr ago VITAMIN B12 S/P/B 200 - 1100 pg/mL 306 Functional Assessment Questionnaire: Functional Assessment Questionnaire: SCORE 1. Writing checks, paying bills, balancing checkbook 1 2. Assembling tax records, business affairs, or papers 1 3. Shopping alone for clothes, household necessities, or groceries 1 4. Playing a game of skill, working on a hobby 1 5. Heating water, making a cup of coffee, turning off stove after use 1 6. Preparing a balanced meal 1 7. Keeping track of current events 1 8. Paying attention to, understanding, discussing TV, book, magazine 1 9. Remembering appointments, family occasions, holidays, medications 1 10. Traveling out of neighborhood, driving, arranging to take buses 1 TOTAL SCORE: 10 Dependent = 3 Requires assistance = 2 Has difficulty but does by self = 1 Normal = 0 Never did [the activity] but could do now = 0 Never did and would have difficulty now = 1 Neurobehavioral Test Results from 05/25/24: 04/22/2023 7:00 AM 05/25/2024 7:00 AM [facility] Neurobehavioral Status Exam Results Repository ICF signed? No No Verbal Fluency Total Score 22 -- [place] Naming (15 item) Total Score 15 15 MMSE Score 22 27 Word List Memory Task 20 -- Word List Recall 7 -- Short Blessed Total Score 15 2 Logical Memory Total Score 8 13 Trails A - Seconds to complete 57 69 Trails A - Errors 1 0 Trails B - Seconds to complete -- -- Total Score (out of 90) 30 -- Digit Symbol Errors 0 Formal neurobehavioral testing took from 1023 to 1035. Results Interpretation: On tests of semantic memory, such as [place] Naming Test and verbal fluency (animal naming), Wily Swartzs scores were in the not impairment range. On tests of episodic memory, such as word list task, word list recall and logical memory, Wily Laws scores were in the no to very Mild impairment range. On tests of speeded psychomotor performance, visual scanning and sequencing (Trailmaking), Scores were in the borderline to mildly impaired range. On more global tests, such as the Mini-Mental Status Exam (MMSE), Wily Bahena's score was 27 (MMSE, out of 30). On memory items within the MMSE and Short Blessed Test, Wily Bahena was correct on 1/3 memory items on the MMSE and on 4/5 on the Short Blessed. He was not able to subtract serials threes, was not able to calculate the number of quarters in $6.75. He was able to draw a clock. Depression Screening: Wily Bahena endorsed 3 items on the depression screening today, including having difficulty sleeping, feeling tired all of the time, and feeling they have to be moving all ofthe time. Clinical Dementia Ratin04/22/2023 7:00 AM 05/25/2024 7:00 AM [facility] CDR/DIAGNOSIS NEW Repository ICF signed? No No Memory 0.5 0.5 Orientation 0.5 0.5 Judgement & Problem Solving 1 1 Community Affairs 0.5 0.5 Home & Hobbies 0.5 0.5 Personal Care 0 0 Global Score 0.5 0.5 Sum of Boxes 3 3 Year of Onset 2017 2017 Uncertain Dementia Yes Yes Mood disorder (any type) Active Active Major head trauma/TBI Active Active Sleep disorder Active Physical Exam Vitals BP 137/74 (BP Location: Right arm, Patient Position: Sitting) Pulse 53 Temp 36.8 ??C (98.2 ??F) Ht 180.3 cm (5' 11 ) Wt 102.3 kg (225 lb 8 oz) SpO2 96% BMI 31.45 kg/m?? Physical Examination General Appearance No acute distress. Eyes PERRLA, conjunctiva/corneas clear, EOM's intact. Neck Supple, symmetrical, trachea midline, no thyroid adenopathy. Lungs Clear to auscultation bilaterally. No wheezes, rales or rhonchi auscultated. Normal effort, respirations unlabored. CV Normal S1/S2. No murmurs, rubs, or gallops. Regular rate and rhythm. No edema. GI Soft, non-tender, and non-distended. Normoactive bowel sounds. Neurological Exam Mental Status Awake, alert and oriented to person, place and time. Speech is normal. Language is fluent with no aphasia. Attention and concentration are normal. Cranial Nerves CN II: Visual acuity is normal. Visual dunlap full to confrontation. CN III, IV, : Extraocular movements intact bilaterally. Normal lids and orbits bilaterally. Pupils equal round and reactive to light bilaterally. CN V: Facial sensation is normal. CN VII: Full and symmetric facial movement. CN VIII: Gross hearing is normal bilaterally. CN IX, X: Palate elevates symmetrically. CN XI: Shoulder shrug strength is normal. CN XII: Tongue midline without atrophy or fasciculations. Motor Normal muscle bulk throughout. Normal muscle tone. No resting or action tremor. Mild bradykinesia in upper extremities. Reflexes Deep tendon reflexes are 2+ and symmetric in all four extremities. Ankle jerks absent. Coordination Ufnycl-[id number] normal. Rapid alternating movement normal. Gait Casual gait with normal stance, normal stride, low step height and reduced arm swing. Poor balance. Assessment/Plan Assessment: Mr. Bahena is a 68 y.o. male with a history of stable cognitive changes, consistent with a clinicaldiagnosis of very mild dementia. The most likely etiologic cause is traumatic brain injury. Memory and thinking changes may also be from mood disorder, poor sleep, untreated sleep apnea and medication side effects. Wily Bahena was previously followed by psychiatry but they have not been able to reach them lately. If they are unable to reach them, I will order a new referral. He is increasinglyagitated and becomes upset very easily. We started seroquel 12.5mg today. He continues to drive buthe becomes very angry while driving, which impacts his driving. We discussed a formal driving evalua tion and he is interested in doing this. We will follow-up in 6 months. Plan: Seroquel 12.5mg at night for agitation Physical [facility] Formal driving evaluation Nayana will contact the psychiatrist office to schedule a visit - if not, I will order new referral Continue current medication regimen and environmental support Diagnoses and all orders for this visit: Dementia, unspecified dementia severity, unspecified dementia type, unspecified whether behavioral,psychotic, or mood disturbance or anxiety (HCC) (Primary) - QUEtiapine (SEROquel) 25 mg tablet; Take 0.5 tablets (12.5 mg total) by mouth nightly - Ambulatory referral order to Physical Therapy -; Future - Ambulatory referral order to Occupational Therapy -; Future Recurrent falls - Ambulatory referral order to Physical Therapy -; Future John-gi-uqrd end time: 1100 I spent 15 minutes interpreting the results of standardized neuropsychological testing, integratingthese results into clinical decision making and treatment plan, providing interactive feedback to the patient and family member(s)/caregiver(s) and report, and documenting this in the patient's chart. In addition to the interpretation time listed above (and exclusive of that time), I spent 43 minutes on the day of the encounter on activities related to the visit including preparing to see the patient by reviewing labs, tests and medical records, time spent [id number]-[id number] with the patient and family during the visit, performing counselling and education, placing orders and documenting the visit in the patient's EHR. MERCY Barahona- Nurse Practitioner [facility] Patient Instructions Patient Instructions AFTER VISIT SUMMARY [facility] Thank you for coming to the [facility] and for allowing us to participate in your medical care. Today, you came with your for your appointment with Nereyda Lindsay NP. FEEDBACK REGARDING BRAIN HEALTH We believe your memory and thinking difficulties are most likely due to head trauma. MEMORY AND THINKING SCORES Your test scores today were: MMSE (Mini Mental Status Exam): 27 /30. A perfect score on this test is 30. A score of of between 27-30 is considered normal. A score of 24-26 is considered mildly impaired. A score of 20-23 is impaired. Scores below 20 show moderate impairment and 10 or below shows severe impairment. Short Blessed Test: 2 . A perfect score on the Short Blessed Test is a 0 (higher score means poorer performance). A score of 4 or below is mild impairment. Scores of 5 or more indicate impairment. The maximum (worst) score is 28. RECOMMENDATIONS FOR FURTHER TESTING Additional Testing: Additional testing, including an a formal driving assessment has been recommended and will be scheduled by my office Referrals: I will request that an outpatient clinic visit be scheduled with the following service(s): Psychiatry - You used to have a psychiatrist. Nayana will reach out and see if she can get in contact with them. Primary Care: I have recommended that you follow-up with your primary care practitioner to discuss control of vascular risk factors (e.g., high blood pressure, high cholesterol, high blood glucose) MEDICATIONS Current Medications: We recommend you take quetiapine/Seroquel for agitation. We discussed this medication is not approved to treat dementia related psychosis, and there is an increased risk of mortality in elderly dementia patients on this class of drug (atypical antipsychotics). Most deaths are due to cardiovascular or infectious events. The extent to which increased mortality attributed to anti psychotic versus some patient characteristics is not clear. Common side effects are fatigue, dry mouth, dizziness, low blood pressure, constipation, abnormal movements, or tremor (let our office knowif you have any of these side effects). To improve compliance with pills, you should get an alarm pill box to remind you to take your medications. ADDITIONAL RECOMMENDATIONS Nutrition: We recommend that Wily Bahena eats a balanced diet, including fruits and vegetables daily and regular servings of fish. Alcohol Intake: You should not drink alcohol. Activity: We recommend that Wily Bahena engage in daily physical activity such as walking or stretching. Exercise improves blood flow to the brain, boosts energy level and mood, and improves sleep. It???s important Wily Bahena remains mobile to maintain his independence. Consider physical activities that may also be mentally or socially engaging, such as walking with a friend, taking a dance class, joining an exercise group or golfing. Incorporate activity that Wily Bahena enjoys so hewill continue to engage in it. For example, bike riding, gardening or walking the dog. Sleep: Sleep can have a big effect on your memory and thinking. Make sure you get a good night's sleep every night. Basic sleep hygiene entails getting up at the same time every morning, no napping or limiting naps to less than an hour and nap no later than 3pm, have a regular exercise schedule, nocaffeine for six hours before bedtime, and no watching TV or using the computer in your bedroom or at bedtime. Driving: Concerns about driving safety were raised at today's visit. A driving assessment is required to evaluate your safety to drive. Safety: We discussed safety in the home, including supervision of meals, medications and use of appliances. Legal: We suggested that you begin to plan for your future (Living Will, Power of Social Media Marketer for Health Care). You may wish to consult an green end man regarding these matters. Level of Care: You can continue to live independently with support from your family. RESEARCH STUDIES In our efforts to find better ways to diagnose and treat people with memory disorders, we conduct research studies. You can help by participating in research studies. There are many different types of research studies. You and your family and/or caregivers can decide if you want to participate in research and what type of research study would be best for you. As a patient at the [facility], you or your caregivers may be asked to sign a consentform so that some information about you may be included in the [facility] Data Repository. This is a list of people who have been seen in our clinic and can be used to help researchers at [facility] find people who might be interested in participating in research studies. If you signed this form, you might be contacted by some of these researchers to see if you might be interested in participating in a research project. You and family can decide if you want to hear more about these projects and if you would like to participate. Signing the [facility] Data Repository consent form does not mean that you are agreeing to be in a research project; it only means the investigators can contact you to see if you might be interested in research projects. RESOURCES FOR ADDITIONAL SUPPORT Alzheimer's Association [facility] Chapter: ; (toll free); http://www.alz.org, The Alzheimer's Association 06/04 Helpline provides reliable information and support to all those who need assistance. [facility]: [place] is to extend and improve quality time at home for people living with dementia and their care partners, or [facility].org. They provide family daycare provider support, education and skills. [facility] will make it easier for you to enhance your skills and adapt your home setting to meet the ever-changing demands of caregiving. Wendy Esquivel R.N., Futures Trader, [address] [place] [address], ; Toll Free: ext. [phone] (toll free), , Email: [email or web address] The best way to reach our team is via My Chart. This is a secure way for us to communicate about your health care. Please call The My Chart Support Desk: [phone] for help with My Chart, or [phone] to obtain a link for access. FOLLOW-UP Future Appointments Date Time Provider Department Center 05/25/2024 10:30 AM Nereyda Lindsay NP [facility] 07/13/2024 11:30 AM Ingrid Goddard MD [facility] We offer in person and telemedicine (virtual) visits. Please let us know your preference when scheduling. The individual who filled Paxil - Office phone Pager E-mail Ordering User Sunshine Kinney CMA -- -- [email or web address] Authorizing Provider Provider, Historical, MD [phone] -- -- documented in this encounter Plan of Treatment Scheduled Referrals Name Type Priority Associated Diagnoses Orde r Schedule Ambulatory referral order to Physical Therapy - Outpatient Referral Routine Dementia, unspecified dementia severity, unspecified dementia type, unspecified whether behavioral, psychotic, or mood disturbance or anxiety (HCC) Recurrent falls Expected: 06/08/2024 (Approximate), Expires: 05/25/2025 Ambulatory referral order to Occupational Therapy - Outpatient Referral Routine Dementia, unspecified dementia severity, unspecified dementia type, unspecified whether behavioral, psychotic, or mood disturbance or anxiety (HCC) Expected: 06/08/2024 (Approximate), Expires: 05/25/2025 documented as of this encounter Visit Diagnoses Diagnosis Dementia, unspecified dementia severity, unspecified dementia type, unspecified whether behavioral, psychotic, or mood disturbance or anxiety (HCC)- Primary Recurrent falls documented in this encounter Care Teams Clinical Support Associate Relationship Specialty Start Date End Date Johnathon Braga DO [address] [place] [id number] PCP - General 06/03/21 Giuseppe Da Silva MD [address] [place] [id number] Referring Physician Neurology 03/03/23 documented as of this encounter
--- OUTSIDE RECORDS SUMMARY | 2024-09-03 07:58 | XMS_ITS | Encounter Summary ---
Author Organization [facility] Address [address] [place] [address] Phone Care Team Providers Care Cutter Out Name Role Phone Johnathon Braga DO Primary Care Provide r Giuseppe Da Silva MD Unavailable +- [phone] Encounter Details Date Type Department Care Team (Late st Contact Info) Description 06/03/2024 Orders Only [address] Floor [address] [place] [address] Spring Rondon, A Social History Tobacco Use Types Packs/Day Years Used Date Smoking Tobacco: Never Smokeless Tobacco: Never Alcohol Use Standard Drinks/Week Comments No 0 (1 standard drink = 0.6 oz pur e alcohol) Personal Safety Answer Date Recorded Getting School Help Needed Not on file 09/10 Sex and Gender Information Value Date Recorded Sex Assigned at Not on file 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
--- OUTSIDE RECORDS SUMMARY | 2024-09-03 07:58 | XMS_ITS | Referral Summary ---
Author Organization [facility] Address [address] [place] [id number] Care Team Providers Care Drama Professor Name Role Phone Johnathon Braga DO Primary Care Provide r Giuseppe Da Silva MD Unavailable [phone]- [phone] Encounters Date Type Department Care Team Description 06/07/[address] [place] [address] Susan Pandya RN from Last 3 Months Allergies Active Allergy Reactions Criticality Noted Date Comments Carbamazepine Rash,Swelling High 02/13/2020 Medications allopurinol (ZYLOPRIM) 300 mg tablet Take 1 tablet (300 mg total) by mouth Active meclizine (ANTIVERT) 25 mg tablet 3 (three) times a day as needed 0 7 Active testosterone cypionate (DEPO-TESTOTERON E) 200 mg/mL injection Inject 1 mL (200 mg total) into the muscle as instructed every 21 days 5 7 Active geriatric multivitamin-min tablet Take 1 tablet by mouth daily Active atorvastatin (LIPITOR) 10 mg tablet 1 Active chlorthalidone 25 mg tablet Take 1 tablet (25 mg total) by mouth daily 1 Active cholecalciferol (VITAMIN D-3) 25 mcg (1,000 unit) tablet Take 2 tablets (2,000 Units total) by mouth daily Active donepeziL (ARICEPT) 10 mg tablet Take 1 tablet (10 mg total) by mouth nightly 1 Active hydrOXYzine (VISTARIL) 50 mg capsule Take 1 capsule (50 mg total) by mouth 3 (three) times a day as needed 8 Active lamoTRIgine (LaMICtal) 100 mg tablet Take 1 tablet (100 mg total) by mouth 2 (two) times a day 1 Active tamsulosin (FLOMAX) 0.4 mg extended release capsule Take 1 capsule (0.4 mg total) by mouth daily 1 Active propranolol LA (INDERAL LA) 60 mg 24 hr capsule Take 1 capsule (60 mg total) by mouth daily Active PARoxetine (PAXIL) 20 mg tablet Take 1 tablet (20 mg total) by mouth daily Active gabapentin (NEURONTIN) 600 mg tablet Take 1 tablet (600 mg total) by mouth 3 (three) times a day 3 Active glipiZIDE XL (GLUCOTROL XL) 5 mg 24 hr tablet Take 1 tablet (5 mg total) by mouth daily 4 Active alpha lipoic acid 600 mg tablet Take 1 tablet by mouth daily Active cyanocobalamin, vitamin B-12, (VITAMIN B-12 ORAL) Take by mouth Active omega-3 fatty acids-fish oil 300-1,000 mg capsule Take 2 capsules (2 g total) by mouth daily Active QUEtiapine (SEROquel) 25 mg tabletIndication s:Dementia, unspecified dementia severity, unspecified dementia type, unspecified whether behavioral, psychotic, or mood disturbance or anxiety (HCC) Take 0.5 tablets (12.5 mg total) by mouth nightly 30 tablet 3 4 Active Active Problems No known active problems Social History Tobacco Use Types Packs/Day Years [...] on file 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 Gender Identity Not on file Sexual Orientation Not on file Last Filed Vital Signs Vital Sign Reading Time Taken Comments Blood Pressure 137/74 05/25/2024 10:11 AM CDT Pulse 53 05/25/2024 10:11 AM CDT Temperature 36.8 ??C (98.2 ??F) 05/25/2024 10:11 AM C DT Respiratory Rate 16 06/04/2021 12:30 AM CDT Oxygen Saturation 96% 05/25/2024 10:11 AM CDT Inhaled Oxygen Concentration - - Weight 102.3 kg (225 lb 8 oz) 05/25/2024 10:11 A M CDT Height 180.3 cm (5' 11 ) 05/25/2024 10:11 AM CDT Body Mass Index 31.45 05/25/2024 10:11 AM CDT Plan of Treatment Not on file Insurance [facility] [employer] an [employer] Address: [address] [place] [id number] MEDICARE COMMERCIAL GENERIC MEDICARE [facility] MEDICARE [facility] [place] [address] Care Teams Drama Professor Relationship Specialty Start Date End Date Johnathon Braga DO [address] [place] [phone] PCP - General 06/03/21 Giuseppe Da Silva MD [address] [place] [phone] Referring Physician Neurology 03/03/23
--- OUTSIDE RECORDS SUMMARY | 2024-09-03 07:58 | XMS_ITS | Encounter Summary ---
Author Organization [facility] Address [address] [place] [address] Phone Care Team Providers Care Delineator Name Role Phone Johnathon Braga Primary Care Provide r Giuseppe Da Silva MD Unavailable [phone]- [phone] Encounter Details Date Type Department Care Team (Late st Contact Info) Description 01/26/2024 Telephone [facility] Neuro Sleep [address] [place] [address] Keri Louie CMA Social History Tobacco Use Types Packs/Day Years Used Date Smoking Tobacco: Never Smokeless Tobacco: Never Alcohol Use Standard Drinks/Week Comments No 0 (1 standard drink = 0.6 oz pur e alcohol) Personal Safety Answer Date Recorded Getting School Help Needed Not on file 09/10 Sex and Gender Information Value Date Recorded Sex Assigned at Not on file 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 * Telephone Encounter - Keri Louie CMA - 01/26/2024 2:09 PM CDT Pt called for sleep study results. documented in this encounter Plan of Treatment Not on file documented as of this encounter Visit Diagnoses Not on filedocumented in this encounter Care Teams Delineator Relationship Specialty Start Date End Date Johnathon Braga DO [address] [place] [id number] PCP - General 06/03/21 Giuseppe Da Silva MD [address] [place] [phone] Referring Physician Neurology 03/03/23 documented as of this encounter
--- OUTSIDE RECORDS SUMMARY | 2024-09-03 07:58 | XMS_ITS | Encounter Summary ---
Author Organization [facility] Address [address] [place] [address] Phone Care Team Providers Care Hospital Insurance Representative Name Role Phone Johnathon Braga Primary Care Provide r Giuseppe Da Silva MD Unavailable [phone]- [phone] Encounter Details Date Type Department Care Team (Late st Contact Info) Description 07/30/2023 Telephone [facility] Neuro Sleep [address] [facility] [address] [place] [address] Ingrid Goddard MD [address] [place], [place] [id number] Social History Tobacco Use Types Packs/Day Years Used Date Smoking Tobacco: Never Smokeless Tobacco: Never Alcohol Use Standard Drinks/Week Comments No 0 (1 standard drink = 0.6 oz pur e alcohol) Sex and Gender Information Value Date Recorded Sex Assigned at Not on file Legal Sex Male 3:23 AM DBAS Gender Identity Not on file Sexual Orientation Not on file documented as of this encounter Miscellaneous Notes * Telephone Encounter - Priyanka Steinberg CMA - 08/03/2023 8:31 AM CST Faxed DME order to [facility] with all necessary documents. * Telephone Encounter - Priyanka Steinberg CMA - 07/30/2023 11:13 AM CST Pts called a bit upset that no one returned her call. She states Wily is interested in the CPAP with nasal not the mask. Please place the order Please advise documented in this encounter Plan of Treatment Not on file documented as of this encounter Visit Diagnoses Not on filedocumented in this encounter Care Teams Hospital Insurance Representative Relationship Specialty Start Date End Date Johnathon Braga DO [address] [place] [id number] PCP - General 06/03/21 Giuseppe Da Silva MD [address] [place] [phone] Referring Physician Neurology 03/03/23 documented as of this encounter
--- OUTSIDE RECORDS SUMMARY | 2024-09-03 07:58 | XMS_ITS | Encounter Summary ---
Author Organization [facility] Address [address] [place] [address] Phone Care Team Providers Care Reformatory Attendant Name Role Phone Johnathon Braga DO Primary Care Provide r Reason for Visit * Reason Onset Date Comments OT Discharge 11/08/2021 Encounter Details Date Type Department Care Team (Late st Contact Info) Description 11/08/2021 Documentation [facility] Occupational Therapy [address] 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 Gender Identity Not on file Sexual Orientation Not on file documented as of this encounter Progress Notes * Cary Ricardo, IZABELA - 11/08/2021 12:00 PM CST Wily Bahena 1955 DX: P1 fracture, MF Date of last MD visit: Last OT Visit: 06/18/21 Cancellations: 0 No Shows: 0 Total OT/PT visits: 1 Goals: All goals met Cary Ricardo MS OTR/L, CHT ING MACHINE FEEDER documented in this encounter Plan of Treatment Not on file documented as of this encounter Visit Diagnoses Not on filedocumented in this encounter Care Teams Reformatory Attendant Relationship Specialty Start Date End Date Johnathon Braga DO [address] [place] [id number] PCP - General 06/03/21 documented as of this encounter
--- OUTSIDE RECORDS SUMMARY | 2024-09-03 07:58 | XMS_ITS | Encounter Summary ---
Author Organization [facility] Address [address] [place] [address] Phone Care Team Providers Care Yeast Tender Name Role Phone KrisJohnathon alexis Frank Primary Care Provide r Giuseppe Da Silva MD Unavailable [phone] Reason for Visit * Reason Comments Follow-up Encounter Details Date Type Department Care Team (Late st Contact Info) Description 12/09/2023 9:30 AM CDT Office Visit [facility] Neuro Sleep [address] [facility] [facility] 6th Floor [address] [place] [address] Indigo Olguin NP [address] [place], [place] [id number] ROSEMARIE (obstructive sleep apnea) (Primary Dx) Social History Tobacco Use Types [...] on file 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 Gender Identity Not on file Sexual Orientation Not on file documented as of this encounter Last Filed Vital Signs Vital Sign Reading Time Taken Comments Blood Pressure 156/81 12/09/2023 9:42 AM CDT Pulse 49 12/09/2023 9:42 AM CDT Temperature 36.7 ??C (98.1 ??F) 12/09/2023 9:42 AM CD T Respiratory Rate - - Oxygen Saturation 95% 12/09/2023 9:42 AM CDT Inhaled Oxygen Concentration - - Weight 107.3 kg (236 lb 8 oz) 12/09/2023 9:42 AM CDT Height 180.3 cm (5' 11 ) 12/09/2023 9:42 AM CDT Body Mass Index 32.99 12/09/2023 9:42 AM CDT documented in this encounter Progress Notes * Indigo Olguin NP - 12/09/2023 9:30 AM CDT Patient Name: WILY BAHENA Medical Record Number (MRN): [id number] Date of (): 1955 Encounter Date: 12/09/2023 Chief Complaint Wily Bahena is a 68 y.o. male seen today for follow up of ROSEMARIE. SHREYAS on 06/29/[address] Stevens HPI 68 y.o. 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 He saw Dr Delvalle on 04/22/23 and was diagnosed with very mild dementia possibly secondary to TBI or untreated sleep apnea. He reported a prior diagnosis of mild obstructive sleep apnea but an unwillingness to use CPAP. He was referred to sleep Medicine to discuss other possible treatment options. He reported the followings; He snores. His sleep is restless. Talks in his sleep. He often has nightmares and he can scream during sleep. Has not gotten out of bed. No definitive dream-enactment behavior. Patient and finally called and wanted CPAP. Order placed for APAP 4-18 cm through [facility] in [place], [place]. Returns today for compliance visit. He was accompanied by . APAP settings are 4-18 cm H2O.He reports using PAP rare nights. He feels no different in the morning after using PAP overnight. The patient has problems with PAP including mask discomfort and air leak. He has not had any snoring or witnesed apneas while wearing PAP. He does not have a regular sleep schedule. He sleeps on and off all day. He lies down on a recliner around 10:30 PM and falls asleep within 30 min and sleeps until about 3 PM. He sometimes wakes upto use the restroom and goes back to sleep until 5:30-6 AM. He is sleepy during the day. Denies trouble driving. He has not changed in weight significantly since the last PAP titration. [place] sleepiness scale today is 13/24, which indicates abnormally high sleepiness. Interval medical history is unremarkable. Compliance Data: from 11/08/23 to 12/07/23 (/30 days) demonstrates nightly use of 1 hrs 3 minutes, % nights used >4 hrs is 0 %. Machine set on APAP 4-18 cm. AHI 19.3 ( AI 17.8, HI 1.5), average time in large leak per 2.5 L/mn. Allergies Allergen Reactions Carbamazepine Rash and Swelling Current Outpatient Medications Medication Sig Dispense Refill allopurinol (ZYLOPRIM) 300 mg tablet Take 1 tablet (300 mg total) by mouth alpha lipoic acid 600 mg tablet Take 1 tablet by mouth daily atorvastatin (LIPITOR) 10 mg tablet chlorthalidone 25 mg tablet Take 1 tablet (25 mg total) by mouth daily cholecalciferol (VITAMIN D-3) 25 mcg (1,000 unit) tablet Take 2 tablets (2,000 Units total) by mouth daily cyanocobalamin, vitamin B-12, (VITAMIN B-12 ORAL) Take by mouth donepeziL (ARICEPT) 10 mg tablet Take 1 tablet (10 mg total) by mouth nightly gabapentin (NEURONTIN) 600 mg tablet Take 1 tablet (600 mg total) by mouth 3 (three) times a day geriatric multivitamin-min tablet Take 1 tablet by mouth daily glipiZIDE XL (GLUCOTROL XL) 5 mg 24 hr tablet Take 1 tablet (5 mg total) by mouth daily hydrOXYzine (VISTARIL) 50 mg capsule Take 1 capsule (50 mg total) by mouth 3 (three) times a day asneeded lamoTRIgine (LaMICtal) 100 mg tablet Take 1 tablet (100 mg total) by mouth 2 (two) times a day meclizine (ANTIVERT) 25 mg tablet 3 (three) times a day as needed 0 omega-3 fatty acids-fish oil 300-1,000 mg capsule Take 2 capsules (2 g total) by mouth daily PARoxetine (PAXIL) 20 mg tablet Take 1 tablet (20 mg total) by mouth daily propranolol LA (INDERAL LA) 60 mg 24 hr capsule Take 1 capsule (60 mg total) by mouth daily tamsulosin (FLOMAX) 0.4 mg extended release capsule Take 1 capsule (0.4 mg total) by mouth daily testosterone cypionate (DEPO-TESTOTERONE) 200 mg/mL injection Inject 1 mL (200 mg total) into the muscle as instructed every 21 days 5 No current facility-administered medications for this visit. There is no problem list on file for this patient. Past Medical History: Diagnosis Date Depression Gout Hypertension No past surgical history on file. Family History Problem Relation Age of Onset Memory loss Brother 70 Social History He graduated HS. He is on disability. He is and lives with his . He does not smoke. He does not drink alcohol. He does not use recreational drugs. He does not drink caffeine and does not exercise. Review of Systems All other systems are negative except as per the HPI. Vital Signs Vitals: 12/09/23 0942 BP: 156/81 BP Location: Right arm Patient Position: Sitting Pulse: (!) 49 Temp: 36.7 ??C (98.1 ??F) TempSrc: Temporal SpO2: 95% Weight: 107.3 kg (236 lb 8 oz) Height: 180.3 cm (5' 11 ) Physical Exam GENERAL EXAM General: Well developed, well nourished, in no acute distress. HEENT: Normal conjunctivae/sclerae. Lungs: Lungs are clear to auscultation bilaterally. Cardiovascular: Regular rate and rhythm; there are no murmurs, gallops or rubs. Abdomen: Soft, nontender and benign. Extremities: No clubbing or cyanosis. No edema Integumentary: Facial skin no irritation or breakouts; skin warm and dry, no rash Lymph nodes: Cervical, supraclavicular, and axillary nodes normal NEUROLOGIC EXAM: Mental Status Alert, oriented, normal spontaneous fluent speech with full comprehension. Cranial nerves Extraocular movements full and conjugate, face strong and symmetric, palate rise andtongue protrusion symmetric. Motor Normal fine finger movements. No tremor. Sensory Intact to light touch in all extremities symmetrically. Coordination and gait Normal stance and gait. Assessment 68 y.o. male who follows up for ROSEMARIE currently treated with APAP 4-18 cm. He is not doing well with this treatment. Reports mask issues, using a nasal mask and has dry mouth with that mask. His compliance is low andresidual AHI is high 19.3/hr. DME required a repeat sleep study due to low compliance. Since he hashigh AHI we will plan a SPLIT PSG with titration. He will also have a mask trial, may benefit from full face mask. 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 Plan ROSEMARIE- SPLIT PSG starting with AHI 5 Mask fit during PSG RTC in 3 months for compliance visit. Contact us with questions/concerns. Obesity- Weight loss through diet and exercise Advised patient to never drive drowsy. He verbalizes understanding of this. All questions answered and the patient/family is in agreement of the plan. Return in about 3 months (around 03/10/2024), or with Hilda, help with [facility] info. Future Appointments Date Time Provider Department Center 02/23/2024 4:00 PM Indigo Olguin NP [facility] 05/20/2024 12:00 PM Jazmin Delvalle MD [facility] Thank you for allowing me to participate in the care of your patient. If you have any questions, feel free to contact me. Indigo Olguin NP 12/09/2023 11:07 AM documented in this encounter Plan of Treatment Not on file documented as of this encounter Visit Diagnoses Diagnosis ROSEMARIE (obstructive sleep apnea)- Primary Obstructive sleep apnea (adult) (pediatric) documented in this encounter Discontinued Medications Medication Sig Discontinue Reason Start Date End Da te dextromethorphan-quiNIDi ne (NUEDEXTA) 20-10 mg capsule Take by mouth 2 (two) times a day 12/09/2023 docosahexaenoic acid-epa 120-180 mg capsule Take by mouth 2 (two) times a day 12/09/2023 ibuprofen (ADVIL,MOTRIN) 800 mg tablet Take 1 tablet (800 mg total) by mouth every 8 (eight) hours as needed for pain 06/05/2021 12/09/2023 metFORMIN (GLUCOPHAGE) 850 mg tablet Take 1 tablet (850 mg total) by mouth daily 03/05/2023 12/09/2023 modafiniL (PROVIGIL) 200 mg tablet TAKE 1 TABLET BY MOUTH ONCE DAILY IN THE MORNING 06/10/2021 12/09/2023 izvqspwegjtb-Zf-arle-min erals tablet Take by mouth. 12/09/2023 venlafaxine XR (EFFEXOR-XR) 75 mg 24 hr capsule Take 1 capsule (75 mg total) by mouth daily 05/10/2018 12/09/2023 VYVANSE 50 mg capsule TK 1 C PO QAM 06/03/2017 12/09/2023 aMILoride-hydroCHLOROthi azide (MODURETIC) 5-50 mg tablet TK 1 T PO QD 06/04/2017 12/09/2023 acetaminophen (TYLENOL) 325 mg tablet Take 2 tablets (650 mg total) by mouth every 4 (four) hours as needed for pain 06/03/2021 12/09/2023 documented as of this encounter Historical Medications * This list may reflect changes made after this encounter. omega-3 fatty acids-fish oil 300-1,000 mg capsule Take 2 capsules (2 g total) by mouth daily cyanocobalamin, vitamin B-12, (VITAMIN B-12 ORAL) Take by mouth alpha lipoic acid 600 mg tablet Take 1 tablet by mouth daily glipiZIDE XL (GLUCOTROL XL) 5 mg 24 hr tablet Take 1 tablet (5 mg total) by mouth daily 11/16/2023 gabapentin (NEURONTIN) 600 mg tablet Take 1 tablet (600 mg total) by mouth 3 (three) times a day 02/23/2023 PARoxetine (PAXIL) 20 mg tablet Take 1 tablet (20 mg total) by mouth daily added in this encounter Care Teams Yeast Tender Relationship Specialty Start Date End Date Johnathon Braga DO [address] [place] [address] PCP - General 06/03/21 Giuseppe Da Silva MD [address] [place] [address] Referring Physician Neurology 03/03/23 documented as of this encounter
--- OUTSIDE RECORDS SUMMARY | 2024-09-03 07:58 | XMS_ITS | CONTINUITY OF CARE DOCUMENT ---
Author Name cy, cy Address Unknown Organization [facility] Address [address] [place] [address] Phone [phone] Care Team Providers Care Embedded Firmware Engineer Name Role Phone Beau Cerda MD Unavailable [phone] JENNIFFER LONDONO DO Unavailable [phone] JENNIFFER LONDONO DO Unavailable [phone] PROBLEMS Condition Status Date Provider Notes Syncope active Beau Cerda MD Nephrolithiasis active Beau Cerda MD Hypertension active Beau Cerda MD Fatigue active Beau Cerda MD Dizziness active Beau Cerda MD ENCOUNTERS Date Type Provider Location Encounter Diag nosis 06/16 - 06/24 In-person encounter Office Visit Beau Cerda MD [facility] DizzinessFatigueHypertensionNephrolithia sisSyncope VITAL SIGNS Date Observation Value Provider Body Mass Index (Ratio) 29.43 kg/m2 Gennaro Jo blood pressure, diastolic 70 mm[Hg] Guido Romano blood pressure, systolic 110 mm[Hg] Candi Romano oxygen saturation, oximetry 98 % Ellie Romano respiratory rate E&M 17 /min Ellie Romano blood pressure, resting Yes Gennaro Jo pulse rate 86 /min Ellie Romano height E&M 71 [in_i] Ellie Romano weight E&M 211 [lb_av] Ellie Romano blood pressure, cuff size regular Kr isty [place] ALLERGIES No Known Drug Allergies HISTORY OF MEDICATION USE Medication Status Instructions Dates Provider Indications Com ments TESTOSTERONE CYPIONATE 200 MG/ML INTRAMUSCULAR SOLUTION active INJECT 1 ML Q 2 WEEKS UTD 2 Ellie Romano #2, 28 days supply, Prescribed by FRANCISCO JAVIER CAN, Filled 05/08/2017 IBUPROFEN 600 MG ORAL TABLET active TK 1 T PO Q 6 H PRF CRAMPING - TAKE WITH FOOD 6 Ellie Jainby #10, 2 days supply, Prescribed by VIVIAN PLATT, Filled 05/09/2017 VYVANSE 50 MG ORAL CAPSULE active TK 1 C PO QAM 7 Ellie Jainby #30, 30 days supply, Prescribed by JANINA MCGEE, Filled 06/03/2017 SERTRALINE HCL 100 MG ORAL TABLET active 5 Ellie Rosalina #45, 30 days supply, Prescribed by JANINA MCGEE, Filled 06/04/2017 AMILORIDE-HYDROCH LOROTHIAZIDE 5-50 MG ORAL TABLET active 1 Ellie [place]ord #30, 30 days supply, Filled 06/04/2017 ALLOPURINOL 300 MG ORAL TABLET active TK 1 T PO D 7 Ellie Jainby #30, 30 days supply, Prescribed by JENNIFFER LONDONO, Filled 06/04/2017 MECLIZINE HCL 25 MG ORAL TABLET active TK 1 T PO TID PRN FOR DIZZINESS 6 Ellie Jainby #90, 30 days supply, Prescribed by AGUSTINA GRAHAM, Filled 06/09/2017 SOCIAL HISTORY Date Observation Value Provider social history reviewed E&M reviewed - no changes required Beau Cerda MD social history E&M Smoking Histo ry: P atient has never smoked. Beau Cerda MD smoking status Never smoker Elliebarb Romano FAMILY HISTORY Family Member Condition Mother Family History Breas t Cancer: Full Brother Family History of Pr ostate Cancer: INSURANCE PROVIDERS Payer name Policy type / Coverage type [place] red republican ID [facility] Other [id number] [facility] [id number] ADVANCE DIRECTIVES Name Date DISCUSSED - NO DECISION MADE TREATMENT PLAN Date Name Performer Cardiology:BP today: 110/70 His updated medication list for this problem includes: Amiloride-hydrochlorothiazide 5-50 Mg Oral Tabs (Amiloride-hydrochlorothiazide) Guilherme Jo Cardiology:Pt has be en experiencing recurrent syncpoal episodes. 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 His symptoms are not improving. He also has fever and chills. I recommend to continue ENT workup and obtain echo, carotid duplex and telesentry. Guilherme Jo Date Name Mobile Cardiac Tele Carotid Duplex Bilat eral Complete Echo HISTORY OF PROCEDURES Procedure Date Procedure Name Provider Procedure Notes S tatus Mobile Cardiac Telem etry - Tech Beau Cerda MD completed Mobile Cardiac Telem etry - Prof Beau Cerda MD completed EKG Tigist miller MD completed SNOMED-CT: [id number] Current Medications Documented Tigist DeL a Torre MD completed
--- OUTSIDE RECORDS SUMMARY | 2024-09-03 07:58 | XMS_ITS | Encounter Summary ---
Author Organization [facility] Address [address] [place] [address] Phone Care Team Providers Care Pointer Machine Operator Name Role Phone KrisranjanhongOlivia ariassahil Marie Primary Care Provide r Giuseppe Da Silva MD Unavailable [phone] Reason for Referral * Consultation (Routine) - Authorized Specialty Diagnoses / Procedures Referred By Contac t Referred To Contact Psychiatry Diagnoses Dementia, unspecified dementia severity, unspecified dementia type, unspecified whether behavioral, psychotic, or mood disturbance or anxiety (HCC) Nereyda Lindsay NP [address] [place] [address] Phone: tel: fax: Kamila Garcia MD [address] [facility] [address] [place] [address] Phone: tel: fax: Referral ID Status Reason Start Date Expiration Date Visits Requested Visits Authorized [id number] Authorized Specialty Services Required 06/07/2024 12/07/2025 1 1 Question Answer Please select the performing region: [facility] (All Locations) [[id number]] To provider: KAMILA GARCIA [[id number]] # of visits: 1 Encounter Details Date Type Department Care Team (Late st Contact Info) Description 06/07/2024 Telephone [facility] First Floor [address] [place] [address] Susan Pandya RN Social History Tobacco Use Types Packs/Day Years Used Date Smoking Tobacco: Never Smokeless Tobacco: Never Alcohol Use Standard Drinks/Week Comments No 0 (1 standard drink = 0.6 oz pur e alcohol) Personal Safety Answer Date Recorded Getting School Help Needed Not on file 09/10 Sex and Gender Information Value Date Recorded Sex Assigned at Not on file 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 documented in this encounter Plan of Treatment Scheduled Referrals Name Type Priority Associated Diagnoses Orde r Schedule Ambulatory referral to Psychiatry Outpatient Referral Routine Dementia, unspecified dementia severity, unspecified dementia type, unspecified whether behavioral, psychotic, or mood disturbance or anxiety (HCC) Expected: 06/21/2024 (Approximate), Expires: 06/07/2025 documented as of this encounter Visit Diagnoses Diagnosis Dementia, unspecified dementia severity, unspecified dementia type, unspecified whether behavioral, psychotic, or mood disturbance or anxiety (HCC)- Primary documented in this encounter Care Teams Pointer Machine Operator Relationship Specialty Start Date End Date Johnathon Braga DO [address] [place] [address] PCP - General 06/03/21 Giuseppe Da Silva MD [address] [place] [address] Referring Physician Neurology 03/03/23 documented as of this encounter
--- OUTSIDE RECORDS SUMMARY | 2024-09-03 07:58 | XMS_ITS | Encounter Summary ---
Author Organization [facility] Address [address] [place] [address] Phone Care Team Providers Care Aircraft Cylinder Mechanic Name Role Phone Johnathon Braga Primary Care Provide r Giuseppe Da Silva MD Unavailable [phone] Encounter Details Date Type Department Care Team (Late st Contact Info) Description 07/22/2023 Telephone [facility] Neuro Sleep [address] 6th [address] [place] [address] Keri Louie CMA Social History Tobacco Use Types Packs/Day Years Used Date Smoking Tobacco: Never Smokeless Tobacco: Never Alcohol Use Standard Drinks/Week Comments No 0 (1 standard drink = 0.6 oz pur e alcohol) Sex and Gender Information Value Date Recorded Sex Assigned at Not on file 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 NAUTICAL ENGINEERING TEACHER * Telephone Encounter - Keri Louie CMA - 07/22/2023 2:26 PM AERONAUTICAL ENGINEERING TEACHER Spoke to pt and his , he does not want to do another study. He will call back if he wants to proceed with the dental device. NAUTICAL ENGINEERING TEACHER * Telephone Encounter - Keri Louie CMA - 07/22/2023 1:40 PM AERONAUTICAL ENGINEERING TEACHER ----- Message from Ingrid Reynolds MD sent at 07/22/2023 8:13 AM AERONAUTICAL ENGINEERING TEACHER ----- Hi Pls contact this patient and let them know that I reviewed his sleep study report from 2013. The study did show obstructive sleep apnea it was overall mild in severity. There was a good amountof total sleep time and REM sleep was recorded so I think overall it was a valid study. The main issue is the studies now almost 10 years old. His weight seems similar. It was recorded at 220 lb on the night of the study and his most recent weight in his chart is 216 lb. Weight changesof less than 20% of total body weight are unlikely to have a major impact on severity of sleep apnea. However, time can lead to worsening of obstructive sleep apnea so it is possible that the severity has changed in the last 10 years or so. We have a few options: Given how old the study is, it is not unreasonable to repeat a sleep study to re-evaluate severity. Be more confident about current severity would help us determine whether a dental device or lateral positional therapy may be reasonable alternatives to PAP. If he would like to avoid a repeat study, we could try referring him to a dental sleep medicine specialist based on the results for 10 years ago to see if a dental device would be reasonable. If the sleep apnea still mild there is a good chance he could respond to a dental device. I am happy to answer any questions or to schedule an in person or telemedicine appointment to discuss further. ----- Message ----- From: Deisy Conner CMA Sent: 07/21/2023 12:50 PM AERONAUTICAL ENGINEERING TEACHER To: MD Clau Lauren, I thought I attached their name. ----- Message ----- From: Ingrid Reynolds MD Sent: 07/21/2023 11:23 AM AERONAUTICAL ENGINEERING TEACHER To: ERWIN Kim Who is the patient? ----- Message ----- From: Deisy Conner CMA Sent: 07/21/2023 11:01 AM AERONAUTICAL ENGINEERING TEACHER To: Keri Louie CMA; # Hi Dr. Reynolds, This patients called in wanting to next steps for a sleep study that she faxed over and was scanned in the chart on 07/16, she is wanting to know if it is acceptable or he will need to have another sleep study done. Please respond at your earliest convenience. Thanks, Deisy NAUTICAL ENGINEERING TEACHER documented in this encounter Plan of Treatment Not on file documented as of this encounter Visit Diagnoses Not on filedocumented in this encounter Care Teams Aircraft Cylinder Mechanic Relationship Specialty Start Date End Date Johnathon Braga DO [address] [place] [id number] PCP - General 06/03/21 Giuseppe Da Silva MD [address] [place] [address] Referring Physician Neurology 03/03/23 documented as of this encounter
--- OUTSIDE RECORDS SUMMARY | 2024-09-03 07:58 | XMS_ITS | Clinical Summary ---
Author Organization [facility] Address [address] [place] [address] Care Team Providers Care Street Light Cleaner Name Role Phone Krisranjanhongjuana Johnathonsahil Marie Primary Care Provide r Giuseppe Da Silva MD Unavailable [phone]- [phone] Allergies Active Allergy Reactions Criticality Noted Date [...] Active Active Problems No known active problems Encounters Date Type Department Care Team Description 06/07/2024 Telephone [facility] [address] [place] [address] Susan Pandya RN from Last 3 Months Medical History Medical History Date Comments Gout Hypertension Depression Family History Medical History Relation Name Comments Memory loss Brother Relation Name Status Comments Brother Social History Tobacco Use Types Packs/Day Years [...] on file 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 Gender Identity Not on file Sexual Orientation Not on file Obstetrics History Last Filed Vital Signs Vital Sign Reading [...] 05/25/2024 10:11 AM CDT Plan of Treatment Health Maintenance Due Date Last Done Comments Colon Cancer Screening-Colonoscopy 1955 Depression Screening 1955 Fall Risk Assessment 1955 Hepatitis C Screening 1955 Prostate Cancer Screening-PSA 1957 Hepatitis B Screening 1975 Zoster Vaccine (1 of 2) 2007 Pneumococcal vaccine 65+ (1 of 1 - PCV) 2022 Well Visit 65+ 2022 Covid-19 Vaccine (2 - season) 05/15/202407/2021 Influenza Vaccine (#1) 2024 DTaP/Tdap/Td Vaccine (2 - Td or Tdap) 06/04/2031, 05/04/2008 Insurance [employer] GENERIC MEDICARE [facility] [place] [id number] Light Cleaner Relationship Specialty Start Date End Date Johnathon Braga DO [address] [place] [id number] PCP - General 06/03/21 Giuseppe Da Silva MD [address] [place] [address] Referring Physician Neurology 03/03/23
--- OUTSIDE RECORDS SUMMARY | 2024-09-03 07:58 | XMS_ITS | Encounter Summary ---
Author Organization [facility] Address [address] [place] [address] Phone Care Team Providers Care Brick Wheeler Name Role Phone Johnathon Braga Primary Care Provide r iGuseppe Da Silva MD Unavailable [phone]- [phone] Encounter Details Date Type Department Care Team (Late st Contact Info) Description 05/25/2024 Documentation [facility] Neuro Sleep [address] [facility] 6th Floor [address] [place] [address] Indigo Olguin NP [address] [place], [place] [id number] Social History Tobacco Use Types Packs/Day Years Used Date Smoking Tobacco: Never Smokeless Tobacco: Never Alcohol Use Standard Drinks/Week Comments No 0 (1 standard drink = 0.6 oz pur e alcohol) Personal Safety Answer Date Recorded Getting School Help Needed Not on file 09/10 Sex and Gender Information Value Date Recorded Sex Assigned at Not on file 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 We had a long discussion about patient's PSG result from [place]. Patient agrees to PAP and order placed. He already has a follow-up scheduled with Dr Stevens on Jul 032023. documented in this encounter Plan of Treatment Not on file documented as of this encounter Visit Diagnoses Diagnosis ROSEMARIE (obstructive sleep apnea)- Primary Obstructive sleep apnea (adult) (pediatric) documented in this encounter Orders General Supply Count Last Ordered Date First Or dered Date BI-LEVEL MACHINE WITH HEATED HUMIDIFIER 1 0 05/25/2024 documented in this encounter Care Teams Brick Wheeler Relationship Specialty Start Date End Date Johnathon Braga DO [address] [place] [id number] PCP - General 06/03/21 Giuseppe Da Silva MD [address] [place] [address] Referring Physician Neurology 03/03/23 documented as of this encounter
--- OUTSIDE RECORDS SUMMARY | 2024-09-03 07:58 | XMS_ITS | Encounter Summary ---
Author Organization [facility] Address [address] [place] [address] Phone Care Team Providers Care Paper Latcher Name Role Phone KrisJohnathon alexis Frank Primary Care Provide r Giuseppe Da Silva MD Unavailable [phone]- [phone] Reason for Visit * Reason Comments Consult Encounter Details Date Type Department Care Team (Late st Contact Info) Description 06/29/2023 10:00 AM CDT Office Visit [facility] Neuro Sleep [address] [facility] 6th [address] [place] [address] Ingrid Goddard MD [address] [place], [place] [id number] Obstructive sleep apnea (Primary Dx) Social History Tobacco Use Types Packs/Day Years Used Date Smoking Tobacco: Never Smokeless Tobacco: Never Tobacco Cessation:Counseling Given: Not Answered Alcohol Use Standard Drinks/Week Comments No 0 (1 standard drink = 0.6 oz pur e alcohol) Sex and Gender Information Value Date Recorded Sex Assigned at Not on file 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 Gender Identity Not on file Sexual Orientation Not on file documented as of this encounter Last Filed Vital Signs Vital Sign Reading Time Taken Comments Blood Pressure 122/66 06/29/2023 9:44 AM CDT Pulse 53 06/29/2023 9:44 AM CDT Temperature 37 ??C (98.6 ??F) 06/29/2023 9:44 AM CDT Respiratory Rate - - Oxygen Saturation 96% 06/29/2023 9:44 AM CDT Inhaled Oxygen Concentration - - Weight 98 kg (216 lb) 06/29/2023 9:44 AM CDT Height 180.3 cm (5' 11 ) 06/29/2023 9:44 AM CDT Body Mass Index 30.13 06/29/2023 9:44 AM CDT documented in this encounter Progress Notes * Ingrid Goddard MD - 06/29/2023 10:00 AM CDT Patient Name: WILY BAHENA Medical Record Number (MRN): [id number] Date of (): 1955 Encounter Date: 06/29/2023 Chief Complaint Wily Bahena is a 67 y.o. male referred by Dr. Johnathon Braga* for consultation regarding possible sleep apnea. 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 He saw Dr Delvalle on 04/22/23 and was diagnosed with very mild dementia possibly secondary to TBI or untreated sleep apnea. He reported a prior diagnosis of obstructive sleep apnea but an unwillingness to use CPAP. He was referred to sleep Medicine to discuss other possible treatment options. He snores. His sleep is restless. Talks in his sleep. He often has nightmares and he can scream during sleep. Has not gotten out of bed. No definitive dream- enactment behavior. He does not have a regular sleep schedule. He sleeps on and off all day. He lies down on a recliner around 10:30 PM and falls asleep within 30 min and sleeps until about 3 PM. He sometimes wakes upto use the restroom and goes back to sleep until 5:30-6 AM. He is sleepy during the day. Denies trouble driving. He sometimes feels like he has to move his legs in the evening. This doesn't typically affect his sleep latency and he is not aware of leg movements in sleep. He does have neuropathy. He was diagnosed with DM about 2 months ago and he started metformin. He underwent a sleep study in a sleep lab in [facility] about 5 years ago for an in-lab PSG. He had 2 studies but thinks both were diagnostic ( did not sleep with a mask ). Estimates his weight is about the same since that time. He never tried PAP. He feels claustrophobic with masks in general (had difficulty with using masks during covid). Masks make him anxious and so he refused to try PAP. He has had 4 teeth pulled (top right, top left, bottom right and bottom left) but otherwise has normal dentition. Allergies Allergen Reactions Carbamazepine Rash and Swelling Current Outpatient Medications Medication Sig Dispense Refill acetaminophen (TYLENOL) 325 mg tablet Take 2 tablets (650 mg total) by mouth every 4 (four) hours as needed for pain 30 tablet 0 allopurinol (ZYLOPRIM) 300 mg tablet Take 1 tablet (300 mg total) by mouth aMILoride-hydroCHLOROthiazide (MODURETIC) 5-50 mg tablet TK 1 T PO QD 4 atorvastatin (LIPITOR) 10 mg tablet chlorthalidone 25 mg tablet cholecalciferol (VITAMIN D-3) 25 mcg (1,000 unit) tablet Take 2 tablets (2,000 Units total) by mouth daily dextromethorphan-quiNIDine (NUEDEXTA) 20-10 mg capsule Take by mouth 2 (two) times a day docosahexaenoic acid-epa 120-180 mg capsule Take by mouth 2 (two) times a day donepeziL (ARICEPT) 10 mg tablet geriatric multivitamin-min tablet Take 1 tablet by mouth daily hydrOXYzine (VISTARIL) 50 mg capsule Take 1 capsule (50 mg total) by mouth 3 (three) times a day asneeded ibuprofen (ADVIL,MOTRIN) 800 mg tablet Take 1 tablet (800 mg total) by mouth every 8 (eight) hours as needed for pain 90 tablet 1 lamoTRIgine (LaMICtal) 100 mg tablet meclizine (ANTIVERT) 25 mg tablet TK 1 T PO TID PRN FOR DIZZINESS 0 metFORMIN (GLUCOPHAGE) 850 mg tablet Take 1 tablet (850 mg total) by mouth daily modafiniL (PROVIGIL) 200 mg tablet TAKE 1 TABLET BY MOUTH ONCE DAILY IN THE MORNING lvxcqlbxfgzp-Vu-lsaw-minerals tablet Take by mouth. propranolol LA (INDERAL LA) 60 mg 24 hr capsule Take 1 capsule (60 mg total) by mouth daily tamsulosin (FLOMAX) 0.4 mg extended release capsule testosterone cypionate (DEPO-TESTOTERONE) 200 mg/mL injection INJECT 1 ML Q 2 WEEKS UTD 5 venlafaxine XR (EFFEXOR-XR) 75 mg 24 hr capsule Take 1 capsule (75 mg total) by mouth daily VYVANSE 50 mg capsule TK 1 C PO QAM 0 No current facility-administered medications for this visit. There is no problem list on file for this patient. Past Medical History: Diagnosis Date Depression Gout Hypertension No past surgical history on file. Family History Problem Relation Age of Onset Memory loss Brother 70 Social History He graduated [employer]. He is on disability. He is and lives with his . He does not smoke. He does not drink alcohol. He does not use recreational drugs. He does not drink caffeine and does not exercise. Review of Systems All other systems are negative except as per the HPI. Vital Signs Vitals: 06/29/23 0944 BP: 122/66 BP Location: Right arm Patient Position: Sitting Pulse: 53 Temp: 37 ??C (98.6 ??F) TempSrc: Temporal SpO2: 96% Weight: 98 kg (216 lb) Height: 180.3 cm (5' 11 ) Neck Circumference (in): 17.5 in. Physical Exam General: Well developed, well nourished, in no acute distress. HEENT: Anicteric sclerae. Mallampati 4 at rest and 2 with phonation. Tongue scalloping is present. Pulmonary: Breathing comfortably on room air. No visible accessory muscle use. Integementry System: Facial skin without irritation or breakouts, no visible rash. Psychiatric: Normal affect NEUROLOGIC EXAM: Mental Status: Alert, oriented, normal spontaneous fluent speech with full comprehension. Cranial Nerves: Face activates symetrically. No dysarthria. 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 He reports claustrophobia which has made him unwilling to try PAP. Presently he has snoring, somniloquy, fragmented nocturnal sleep and daytime sleepiness as well as cognitive issues and is willing to revisit options for sleep apnea treatment. We will start by requesting the results from his prior sleep study. We discussed risks of untreated sleep apnea including its association with hypertension, glucose control, stroke, cardiovascular events, cardiac arrhythmias, and motor vehicle accidents. We discussed possible treatment options including CPAP, oral appliances, and surgery. Plan Outside records requested (PSG results). Once those results are reviewed we will discuss treatment options. Follow-up will be scheduled once treatment plan is determined. Thank you for allowing me to participate in the care of your patient. If you have any questions, feel free to contact me. Sincerely, Ingrid Goddard M.D. Professor of Neurology Diplomate, [place] [employer] of Psychiatry and Neurology with added Qualifications in Sleep Medicine documented in this encounter Plan of Treatment Not on file documented as of this encounter Visit Diagnoses Diagnosis Obstructive sleep apnea- Primary Obstructive sleep apnea (adult) (pediatric) documented in this encounter Care Teams Paper Latcher Relationship Specialty Start Date End Date Johnathon Braga DO [address] [place] [id number] PCP - General 06/03/21 Giuseppe Da Silva MD [address] [place] [address] Referring Physician Neurology 03/03/23 documented as of this encounter
--- OUTSIDE RECORDS SUMMARY | 2024-09-03 07:58 | XMS_ITS | Encounter Summary ---
Author Organization [facility] [facility] Address [address] [place] [address] Phone Care Team Providers Care Change Management Lead Name Role Phone Johnathon Braga DO Primary Care Provide r Reason for Visit * Reason Comments OT Initial Eval * Consultation (Routine) - Closed Specialty Diagnoses / Procedures Referred By Contac t Referred To Contact Occupational Therapy Diagnoses Open nondisplaced fracture of proximal phalanx of right middle finger, initial encounter Jimbo Conner MD Phone: tel: fax: [facility] Occupational Therapy [address] [place] [address] 6th [place] [address] [place] [address] Phone: tel: fax: Referral ID Status Reason Start Date Expiration Date V isits Requested Visits Authorized [id number] Closed Specialty Services Required 06/18/2021 07/18/2022 24 24 Encounter Details Date Type Department Care Team (Late st Contact Info) Description 06/18/2021 1:00 PM CDT Therapy [facility] Occupational Therapy [facility] 6th [place] [address] [place] [address] Cary Ricardo, OT [address] [address] Open nondisplaced fracture of proximal phalanx of right middle finger with routine healing, subsequent encounter Social History Tobacco Use Types Packs/Day Years Used Date Smoking Tobacco: Never Smokeless Tobacco: Never Alcohol Use Standard Drinks/Week Comments No 0 (1 standard drink = 0.6 oz pur e alcohol) Sex and Gender Information Value Date Recorded Sex Assigned at Not on file 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 Orthosis: hand based MF only extension orthosis: may do dorsal or volar. Purpose of orthosis: To support affected structures. Restrictions: Slow steady progression. Subjective: Wily is a 65 year old male who sustained a saw injury while helping his daughter with siding her home. He was seen in ED and followed up with Dr. Conner today. He was referred to therapy today and was seen as a walk in. His accompanied him today. Pt. Reports that he has bilateral neuropathy Patient reports: He hasn't really had any pain since the injury. Patient's primary goal: To heal and be able to use. Date of onset: 06/03/21 Cause of injury: saw Date of surgery: 06/03/21 in ED Next MD Appointment: 4 weeks Past Medical History: Diagnosis Date ??? Depression ??? Gout ??? Hypertension Carbamazepine History of prior therapy services: None for this injury. Occupation/Hobbies: [employer], [employer] Work status: disabled. Do you feel safe in your home environment?: [x] Yes [] No Hand dominance [x] Right [] Left [] Ambidextrous Involved side [x] Right [] Left [] Bilateral Numbness [] Yes [x] No Location: Tingling [] Yes [x] No Location: Pain at best: none Pain at worst: Are you taking pain medication? [x] Yes [] No Medication using: over the counter ADL Status: [] Independent [x] Independent but with increased time or pain [] Requires assistance [] Dependent Details: unable to drive due to work injury- I.e. head? IADL Status: [] Independent [x] Independent but with increased time or pain [] Requires assistance [] Dependent Details: Leisure activities: [x] Able to participate in leisure activities [] Able to participate but with increased time or pain [] Unable to participate in leisure activities Details: Sleep: [x] Reports adequate sleep to support daily routines [] Reports inadequate sleep to support daily routines Details: Objective: Wound/appearance: scabbed over, sutures in place (removed by this therapist), visible edema moderate Clinical Exam: Edema DPC Right 23.8 cm Left 22.8 cm P1 Right 8.1 cm Left 7.5 cm PIP Right 7.5 cm Left 7.5 cm AROM: DPC 4 cm all digits. Treatment Provided: Evaluation Orthosis fabrication added ring finger into orthosis for comfort. HEP: AROM, milking massage, scar management Assessment: Pt demonstrated independence/verbalized understanding in: [x] HEP [x] Don/doff orthosis [] All tx listed above Assessment details: Wily is now 2 weeks and one day from injury. He was seen for his first followup today and referredto therapy by Dr. Conner. He is demonstrating moderate edema throughout the hand, healing tissue on the middle finger, and limited AROM. He was able to duplicate everything completed in the clinic today for home. He will benefit from therapy to address these deficits and improve functional use when bone is healed. Impairment list [x] Edema [x] Endurance/activity tolerance [] Pain [x] Range of motion [x] Scar tissue [x] Strength Functional Limitations: [x] ADLs [x] Home management [x] Leisure activities [x] Work Intervention Approach: [] Health promotion [x] Remediation [] Wellness [] Adaptation [] Prevention Prognosis: [] Excellent [x] Good [] Fair [] Poor Goals for Therapy Intervention: Goal Status / Date Updated Due by: STG1 Wily to verbalize under- standing of his HEP before leaving the clinic today. MET 06/18/2021 STG2 Wily to demonstrate decrease of edema in his hand by 1/2 cm in 2 weeks. 06/18/2021 [address]2021 STG3 Wily to demonstrate a gentle fist less than 2 cm DPC in 2 weeks. New 06/18/2021 07/02/2021 LTG1 Wily to increase finger extension to 0 in 6 weeks. New 06/18/2021 08/02/2021 LTG2 Wily to report he is able to complete all premorbid activitites in 8 weeks. New 06/18/2021 08/13/2021 LTG3 New 06/18/2021 Plan: See weekly. Frequency/Duration: Plan Details: Start time: 1230 End time: 115 Cary Ricardo OT FOR INSURANCE AUTHORIZATION PURPOSES ONLY: 1. Primary purpose of therapy: Rehabilitation 2. Name tool(s) used during evaluation: goniometer, measuring tape 3. Will any of the following be used as a primary treatment: None of these apply 4. Body part(s) affected: Head/Neck, Upper Extremity, Spine, Lower Extremity, Wound, Vestibular andBalance/Falls 5. Does the patient have difficulty performing age appropriate activities of daily living (ADLs) and activities related to independent living: Yes 6. Select all conditions expected to impact treatment: Musculoskeletal disorders (eg, juvenile idiopathic arthritis, contractures, or fractures) documented in this encounter Plan of Treatment Not on file documented as of this encounter Visit Diagnoses Diagnosis Open nondisplaced fracture of proximal phalanx of right middle finger with routine healing, subsequent encounter documented in this encounter Orders Outpatient Referral Count Last Ordered Date Fir st Ordered Date AMB REFERRAL ORDER TO OCCUPATIONAL THERAPY 1 06/18/2021 documented in this encounter Care Teams Change Management Lead Relationship Specialty Start Date End Date Johnathon Braga DO [address] [place] [address] PCP - General 06/03/21 documented as of this encounter
--- OUTSIDE RECORDS SUMMARY | 2024-09-03 07:58 | XMS_ITS | Encounter Summary ---
Author Organization [facility] [employer] [facility] Address [address] [place] [address] Phone Care Team Providers Care Pattern Molder Name Role Phone Johnathon Braga DO Primary Care Provide r Giuseppe Da Silva MD Unavailable [phone]- [phone] Encounter Details Date Type Department Care Team (Latest Contact Info) Description 04/20/2023 Orders Only [facility] Scanning, Provider Social History Tobacco Use Types Packs/Day Years Used Date Smoking Tobacco: Never Smokeless Tobacco: Never Alcohol Use Standard Drinks/Week Comments No 0 (1 standard drink = 0.6 oz pur e alcohol) Sex and Gender Information Value Date Recorded Sex Assigned at Not on file 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 Gender Identity Not on file Sexual Orientation Not on file documented as of this encounter Plan of Treatment Not on file documented as of this encounter Procedures Procedure Name Priority Date/Time Associated Diagnosis Comments SCAN - RADIOLOGY/IMAGING 04/20/2023 4:58 PM CDT documented in this encounter Results * SCAN - RADIOLOGY/IMAGING (04/20/2023 4:58 PM CDT) Anatomical Region Laterality Modality Other us Provider Scanning Final Result documented in this encounter Visit Diagnoses Not on filedocumented in this encounter Care Teams Pattern Molder Relationship Specialty Start Date End Date Johnathon Braga DO [address] [place] [phone] PCP - General 06/03/21 Giuseppe Da Silva MD [address] [place], [place] [id number] Referring Physician Neurology 03/03/23 documented as of this encounter
--- OUTSIDE RECORDS SUMMARY | 2024-09-03 07:58 | XMS_ITS | Encounter Summary ---
Author Organization [facility] Address [address] [place] [address] Phone Care Team Providers Care Testing Engineer Name Role Phone Johnathon Braga Primary Care Provide r Giuseppe Da Silva MD Unavailable [phone]- [phone] Encounter Details Date Type Department Care Team (Late st Contact Info) Description 05/26/[address] 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 documented in this encounter Plan of Treatment Not on file documented as of this encounter Visit Diagnoses Not on filedocumented in this encounter Care Teams Testing Engineer Relationship Specialty Start Date End Date Johnathon Braga DO [facility] [place] [address] PCP - General 06/03/21 Giuseppe Da Sivla MD [address] [place] [address] Referring Physician Neurology 03/03/23 documented as of this encounter
--- OUTSIDE RECORDS SUMMARY | 2024-09-03 07:58 | XMS_ITS | Encounter Summary ---
Author Organization [facility] Healthcare Address [address] [place] [address] Care Team Providers Care Stretch Press Operator Name Role Phone Johnathon Braga DO Primary Care Provide r Giuseppe Da Silva MD Unavailable [phone]- [phone] Reason for Visit * MRI/CAT/PET Scan (Routine) - Closed Specialty Diagnoses / Procedures Referred By Contac t Referred To Contact Procedures Neuro CT Outside Reference Jazmin Delvalle MD [address] [facility] [address] [place] [address] Phone: tel: fax: Referral ID Status Reason Start Date Expiration Date Visits Re quested Visits Authorized [id number] Closed 08/11/2023 2024 1 1 Encounter Details Date Type Department Care Team (Latest Contact Info) Description 08/11/2023 9:04 PM FLOOR BROKER - 08/11/2023 11:59 PM FLOOR BROKER Hospital Encounter [facility] [address] [place] [id number] Discharge Disposition: Discharge to home or self care Social History Tobacco Use Types Packs/Day Years Used Date Smoking Tobacco: Never Smokeless Tobacco: Never Alcohol Use Standard Drinks/Week Comments No 0 (1 standard drink = 0.6 oz pur e alcohol) Sex and Gender Information Value Date Recorded Sex Assigned at Not on file Legal Sex Male 3:23 AM FLOOR BROKER Gender Identity Not on file Sexual Orientation Not on file documented as of this encounter Medications at Time of Discharge allopurinol (ZYLOPRIM) 300 mg tablet Take 1 tablet (300 mg total) by mouth atorvastatin (LIPITOR) 10 mg tablet 03/28/2021 chlorthalidone 25 mg tablet Take 1 tablet (25 mg total) by mouth daily 03/22/2021 cholecalciferol (VITAMIN D-3) 25 mcg (1,000 unit) tablet Take 2 tablets (2,000 Units total) by mouth daily donepeziL (ARICEPT) 10 mg tablet Take 1 tablet (10 mg total) by mouth nightly 06/12/2021 gabapentin (NEURONTIN) 600 mg tablet Take 1 tablet (600 mg total) by mouth 3 (three) times a day 02/23/2023 geriatric multivitamin-min tablet Take 1 tablet by mouth daily hydrOXYzine (VISTARIL) 50 mg capsule Take 1 capsule (50 mg total) by mouth 3 (three) times a day as needed 10/05/2017 lamoTRIgine (LaMICtal) 100 mg tablet Take 1 tablet (100 mg total) by mouth 2 (two) times a day 05/30/2021 meclizine (ANTIVERT) 25 mg tablet 3 (three) times a day as needed 0 06/09/2017 propranolol LA (INDERAL LA) 60 mg 24 hr capsule Take 1 capsule (60 mg total) by mouth daily tamsulosin (FLOMAX) 0.4 mg extended release capsule Take 1 capsule (0.4 mg total) by mouth daily 06/12/2021 testosterone cypionate (DEPO-TESTOTERON E) 200 mg/mL injection Inject 1 mL (200 mg total) into the muscle as instructed every 21 days 5 06/09/2017 acetaminophen (TYLENOL) 325 mg tablet Take 2 tablets (650 mg total) by mouth every 4 (four) hours as needed for pain 30 tablet 06/03/2021 4 aMILoride-hydroC HLOROthiazide (MODURETIC) 5-50 mg tablet TK 1 T PO QD 4 06/04/2017 4 dextromethorphan -quiNIDine (NUEDEXTA) 20-10 mg capsule Take by mouth 2 (two) times a day 4 docosahexaenoic acid-epa 120-180 mg capsule Take by mouth 2 (two) times a day 4 ibuprofen (ADVIL,MOTRIN) 800 mg tablet Take 1 tablet (800 mg total) by mouth every 8 (eight) hours as needed for pain 90 tablet 1 06/05/2021 4 metFORMIN (GLUCOPHAGE) 850 mg tablet Take 1 tablet (850 mg total) by mouth daily 03/05/2023 4 modafiniL (PROVIGIL) 200 mg tablet TAKE 1 TABLET BY MOUTH ONCE DAILY IN THE MORNING 06/10/2021 4 multivitamin-Ca- iron-minerals tablet Take by mouth. 4 venlafaxine XR (EFFEXOR-XR) 75 mg 24 hr capsule Take 1 capsule (75 mg total) by mouth daily 05/10/2018 4 VYVANSE 50 mg capsule TK 1 C PO QAM 0 06/03/2017 4 documented as of this encounter Discharge Disposition Disposition Code Departure Means Destination Discharge to home or self care documented in this encounter Plan of Treatment Not on file documented as of this encounter Procedures Procedure Name Priority Date/Time Associated Diagnosis Comments NEURO CT OUTSIDE REFERENCE Routine 08/11/2023 9:04 PM FLOOR BROKER documented in this encounter Results * Neuro CT Outside Reference (08/11/2023 9:04 PM FLOOR BROKER) Impressions [facility] - 08/11/2023 9:04 PM FLOOR BROKER These images are for Reference purposes only and have not been reviewed by [facility]. ??There will be no report generated by a [facility] Radiologist. Narrative [facility] - 08/11/2023 9:04 PM FLOOR BROKER EXAMINATION: ??Images For Reference Purposes Only us Jazmin Delvalle MD IMG CT PROCEDURES Final Result [facility] documented in this encounter Visit Diagnoses Not on filedocumented in this encounter Care Teams Stretch Press Operator Relationship Specialty Start Date End Date Johnathon Braga DO [address] [place] [address] PCP - General 06/03/21 Giuseppe Da Silva MD [address] [place], [place] [id number] Referring Physician Neurology 03/03/23 documented as of this encounter
--- OUTSIDE RECORDS SUMMARY | 2024-09-03 07:58 | XMS_ITS | Encounter Summary ---
Author Organization [facility] Address [address] [place] [address] Phone Care Team Providers Care Community Support Specialist Name Role Phone Johnathon Braga Primary Care Provide r Giuseppe Da Silva MD Unavailable [phone]- [phone] Encounter Details Date Type Department Care Team (Late st Contact Info) Description 01/27/2024 Documentation [facility] Neuro Sleep [address] [facility] 6th [address] [place] [address] Indigo Olguin NP [address] [place], [place] [id number] Social History Tobacco Use Types Packs/Day Years Used Date Smoking Tobacco: Never Smokeless Tobacco: Never Alcohol Use Standard Drinks/Week Comments No 0 (1 standard drink = 0.6 oz pur e alcohol) Personal Safety Answer Date Recorded Getting School Help Needed Not on file 09/10 Sex and Gender Information Value Date Recorded Sex Assigned at Not on file 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 Left a voice message. Will try to contact patient again. documented in this encounter Plan of Treatment Not on file documented as of this encounter Visit Diagnoses Not on filedocumented in this encounter Care Teams Community Support Specialist Relationship Specialty Start Date End Date Johnathon Braga DO [address] [place] [address] PCP - General 06/03/21 Giuseppe Da Silva MD [address] [place] [phone] Referring Physician Neurology 03/03/23 documented as of this encounter
--- OUTSIDE RECORDS SUMMARY | 2024-09-03 07:58 | XMS_ITS | Encounter Summary ---
Author Organization [facility] Address [address] [place] [address] Phone Care Team Providers Care Tree Doctor Name Role Phone Johnathon Braga Primary Care Provide r Giuseppe Da Silva MD Unavailable [phone]- [phone] Reason for Visit * Reason Onset Date Comments sleep order 12/10/2023 Encounter Details Date Type Department Care Team (Late st Contact Info) Description 12/10/2023 Telephone [facility] Scheduling [address] [place], [place] [phone] Indigo Olguin NP [address] [place], [place] [phone] sleep order Social History Tobacco Use Types Packs/Day Years Used Date Smoking Tobacco: Never Smokeless Tobacco: Never Alcohol Use Standard Drinks/Week Comments No 0 (1 standard drink = 0.6 oz pur e alcohol) Personal Safety Answer Date Recorded Getting School Help Needed Not on file 09/10 Sex and Gender Information Value Date Recorded Sex Assigned at Not on file Legal Sex Male 3:23 AM OTOLARYNGOLOGIST Gender Identity Not on file Sexual Orientation Not on file documented as of this encounter Miscellaneous Notes * Telephone Encounter - Keri Louie CMA - 12/22/2023 12:15 PM CDT Sleep study faxed to [phone] per zachariah request. * Telephone Encounter - Keri Louie CMA - 12/10/2023 2:03 PM CDT Order and notes faxed to [phone]. * Telephone Encounter - Cindy Herr - 12/10/2023 1:29 PM CDT Pt called and they would like to sleep study performed at [facility] [place] please send order and notes to atten: Alexandra [phone] documented in this encounter Plan of Treatment Not on file documented as of this encounter Visit Diagnoses Not on filedocumented in this encounter Care Teams Tree Doctor Relationship Specialty Start Date End Date Johnathon Braga DO [address] [place] [address] PCP - General 06/03/21 Giuseppe Da Silva MD [address] [place] [address] Referring Physician Neurology 03/03/23 documented as of this encounter
--- OUTSIDE RECORDS SUMMARY | 2024-09-03 07:58 | XMS_ITS | Encounter Summary ---
Author Organization [facility] Address [address] [place] [address] Phone Care Team Providers Care Termite Helper Name Role Phone Johnathon Braga Primary Care Provide r Giuseppe Da Silva MD Unavailable [phone]- [phone] Encounter Details Date Type Department Care Team (Late st Contact Info) Description 05/30/2024 Telephone [facility] [address] [place] [address] [address] Floor [address] [place] [address] Salima Henriquez RMA Social History Tobacco Use Types Packs/Day Years Used Date Smoking Tobacco: Never Smokeless Tobacco: Never Alcohol Use Standard Drinks/Week Comments No 0 (1 standard drink = 0.6 oz pur e alcohol) Personal Safety Answer Date Recorded Getting School Help Needed Not on file 09/10 Sex and Gender Information Value Date Recorded Sex Assigned at Not on file 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 She has been using a pill cutter, but cannot get in directly in half. I recommended crushing entirely and giving Wily half of crushed dose. She verbally agreed. She has not heard back from Wily's psychiatrist, but she is going toreach out again tomorrow. If no response, I will put in a new referral for psychiatry. * Telephone Encounter - Salima Henriquez RMA - 05/30/2024 10:29 AM CDT Nayana called in to state that Nereyda Lindsay NP wants Wily to take a half tablet of Quetiapine 25 mg. She states she cannot cut this tablet in half due to sizing, it breaks and crumbles. Nayana would like advising. Will route to China Lindsay NP. documented in this encounter Plan of Treatment Not on file documented as of this encounter Visit Diagnoses Not on filedocumented in this encounter Care Teams Termite Helper Relationship Specialty Start Date End Date Johnathon Braga DO [address] [place] [address] PCP - General 06/03/21 Giuseppe Da Silva MD [address] [place] [address] Referring Physician Neurology 03/03/23 documented as of this encounter
--- OUTSIDE RECORDS SUMMARY | 2024-09-03 07:58 | XMS_ITS | Encounter Summary ---
Author Organization [facility] Healthcare Address [address] [place] [address] Care Team Providers Care Surveyor Helper Name Role Phone Johnathon Braga DO Primary Care Provide r Giuseppe Da Silva MD Unavailable [phone]- [phone] Reason for Visit * MRI/CAT/PET Scan (Routine) - Closed Specialty Diagnoses / Procedures Referred By Contelis t Referred To Contact Procedures Neuro MR Outside Reference Jazmin Delvalle MD [address] [facility] [address] [place] [address] Phone: tel: fax: Referral ID Status Reason Start Date Expiration Date Visits Re quested Visits Authorized [id number] Closed 04/16/2023 05/15/2024 1 1 Encounter Details Date Type Department Care Team (Latest Contact Info) Description 04/16/2023 11:39 AM CDT - 04/16/2023 11:59 PM CDT Hospital Encounter [facility] Radiology [facility] [address] [place] [address] Discharge Disposition: Discharge to home or self care Social History Tobacco Use Types Packs/Day Years Used Date Smoking Tobacco: Never Smokeless Tobacco: Never Alcohol Use Standard Drinks/Week Comments No 0 (1 standard drink = 0.6 oz pur e alcohol) Sex and Gender Information Value Date Recorded Sex Assigned at Not on file 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 Gender Identity Not on file Sexual [...] times a day as needed 0 06/09/2017 tamsulosin (FLOMAX) 0.4 mg extended release capsule [...] needed for pain 30 tablet 06/03/2021 4 allopurinol (ZYLOPRIM) 300 mg tablet TK 1 T PO D 3 06/04/2017 3 aMILoride-hydroC HLOROthiazide (MODURETIC) 5-50 mg tablet TK 1 T PO QD 4 06/04/2017 4 butalbital-aceta minophen-caffein e (FIORICET) 50-300-40 mg per capsule Take 1 capsule by mouth every 4 (four) hours as needed 06/24/2017 3 dextromethorphan -quiNIDine (NUEDEXTA) 20-10 mg capsule Take by mouth 2 (two) times a day [address] (Depakote) 500 mg EC tablet Take 1 tablet (500 mg total) by mouth 2 (two) times a day 3 docosahexaenoic acid-epa 120-180 mg capsule Take by mouth 2 (two) times a day 4 HYDROcodone-acet aminophen (NORCO) 5-325 mg per tabletIndication s:Pain Take 1 tablet by mouth every 4 (four) hours as needed for pain 30 tablet 06/05/2021 3 hydrOXYzine (ATARAX) 50 mg tablet 05/21/2021 3 ibuprofen (ADVIL,MOTRIN) 800 mg tablet Take 1 [...] multivitamin-Ca- iron-minerals tablet Take by mouth. 4 primidone (MYSOLINE) 50 mg tablet Take 1 tablet (50 mg total) by mouth 3 (three) times a day 09/12/2020 3 sertraline (ZOLOFT) 100 mg tablet Take 1 tablet (100 mg total) by mouth 3 venlafaxine XR (EFFEXOR-XR) 75 mg 24 hr [...] Name Priority Date/Time Associated Diagnosis Comments NEURO MR OUTSIDE REFERENCE Routine 04/16/2023 11:39 AM CDT documented in this encounter Results * Neuro MR Outside Reference (04/16/2023 11:39 AM CDT) Impressions [facility] - 04/16/2023 11:39 AM CDT These images are for Reference purposes only and have not been reviewed by [facility]. ??There will be no report generated by a [facility] Radiologist. Narrative [facility] - 04/16/2023 11:39 AM CDT EXAMINATION: ??Images For Reference Purposes Only us Jazmin Delvalle MD IMG MRI PROCEDURES Final Result [facility] documented in this encounter Visit Diagnoses Not on filedocumented in this encounter Care Teams Surveyor Helper Relationship Specialty Start Date End Date Johnathon Braga DO [address] [place] [address] PCP - General 06/03/21 Giuseppe Da Silva MD [address] [place] [address] Referring Physician Neurology 03/03/23 documented as of this encounter
--- OUTSIDE RECORDS SUMMARY | 2024-09-03 07:58 | XMS_ITS | Encounter Summary ---
Author Organization [facility] Address [address] [place] [address] Care Team Providers Care Learning Support Resource Room Teacher Name Role Phone Johnathon Braga DO Primary Care Provide r Giuseppe Da Silva MD Unavailable [phone]- [phone] Reason for Referral * MRI/CAT/PET Scan (Routine) - Closed Specialty Diagnoses / Procedures Referred By Jonah weber Referred To Contact Radiology Diagnoses Dementia, unspecified dementia severity, unspecified dementia type, unspecified whether behavioral, psychotic, or mood disturbance or anxiety (HCC) Traumatic brain injury with loss of consciousness, sequela (HCC) Procedures MRI Brain and Volumetric W WO Contrast Jazmin Delvalle MD [address] [facility] [address] [place] [address] Phone: tel: fax:[phone] [address] Referral ID Status Reason Start Date Expiration Date Visits Re quested Visits Authorized [id number] Closed 04/22/2023 05/21/2024 1 1 Reason for Visit * MRI/CAT/PET Scan (Routine) - Closed Specialty Diagnoses / Procedures Referred By Jonah weber Referred To Contact Radiology Diagnoses Dementia, unspecified dementia severity, unspecified dementia type, unspecified whether behavioral, psychotic, or mood disturbance or anxiety (HCC) Traumatic brain injury with loss of consciousness, sequela (HCC) Procedures MRI Brain and Volumetric W WO Contrast Jazmin Delvalle MD [address] [facility] [address] [place] [address] Phone: tel: fax: [facility] [address] [facility] [place] [address] Referral ID Status Reason Start Date Expiration Date Visits Re quested Visits Authorized [id number] Closed 04/22/2023 05/21/2024 1 1 Encounter Details Date Type Department Care Team (Latest Contact Info) Description 05/08/2023 9:13 AM CDT - 05/08/2023 11:59 PM CDT Hospital Encounter [facility] Radiology [facility] [address] [place] [address] Dementia, unspecified dementia severity, unspecified dementia type, unspecified whether behavioral, psychotic, or mood disturbance or anxiety (HCC); Traumatic brain injury with loss of consciousness, sequela (HCC) Discharge Disposition: Discharge to home or self care Social History Tobacco Use Types Packs/Day Years Used Date Smoking Tobacco: Never Smokeless Tobacco: Never Alcohol Use Standard Drinks/Week Comments No 0 (1 standard drink = 0.6 oz pur e alcohol) Sex and Gender Information Value Date Recorded Sex Assigned at Not on file 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 Gender Identity Not on file Sexual [...] Procedure Name Priority Date/Time Associated Diagnosis Comments MRI BRAIN AND VOLUMETRIC W WO CONTRAST Schedule Routine, Read Routine (OP Routine) 05/08/2023 10:23 AM CDT Dementia, unspecified dementia severity, unspecified dementia type, unspecified whether behavioral, psychotic, or mood disturbance or anxiety (HCC) Traumatic brain injury with loss of consciousness, sequela (HCC) documented in this encounter Results * MRI Brain and Volumetric W WO Contrast (05/08/2023 10:23 AM CDT) Anatomical Region Laterality Modality Head and Neck N/A Magnetic Resonan ce 05/08/2023 11:0 5 AM CDT Impressions 05/08/2023 5:28 PM CDT 1. ??No acute intracranial abnormality. 2. ??No significant volume loss or other specific abnormality to explain memory loss. Dictated by: Chito Bernal M.D. The radiology attending physician has personally reviewed this study, and had reviewed and/or edited this written report and agrees with it. Electronically signed by: Jimbo Gallo M.D. Narrative 05/08/2023 5:28 PM CDT EXAMINATION: Magnetic resonance imaging (MRI) of the [...] images of the brain were postprocessed on ActionBase to generate segmented brain volumes using commercial software. Results were compared to 10th and 90th percentiles of healthy age-/gender-matched population. Graphs were sent to [employer] and [employer] PACS. The protocol specifically includes FLAIR to [...] QUALITATIVE ASSESSMENT: Small infarcts (< 10 mm): ? 0 Infarcts (>10 mm): ?None or location and number White matter hyperintensities (WMH)(Fazekas grade): 0 Prior cerebral microhemorrhages: None. New/incident cerebral microhemorrhages: None. Total cerebral microhemorrhages: None. Prior siderosis: None. New /incident siderosis: ??None. Procedure Note Jimbo Gallo MD - 05/08/2023 EXAMINATION: Magnetic resonance imaging (MRI) of the [...] images of the brain were postprocessed on ActionBase to generate segmented brain volumes using commercial software. Results were compared to 10th and 90th percentiles of healthy age-/gender-matched population. Graphs were sent to [employer] and [employer] PACS. The protocol specifically includes FLAIR to [...] it. Electronically signed by: Jimbo Gallo M.D. Jazmin Delvalle MD IM MRI PROCEDURES Final Result documented in this encounter Visit Diagnoses Diagnosis Dementia, unspecified dementia severity, unspecified dementia type, unspecified whether behavioral, psychotic, or mood disturbance or anxiety (HCC) Traumatic brain injury with loss of consciousness, sequela (HCC) documented in this encounter Administered Medications Inactive Administered Medications - up to 3 most recent administrations Medication Order MAR Action Action Date Dose Rate Site gadoterate meglumine injection 18 mL 18 mL, intravenous, Once in imaging, contrast, Starting on Thu05/08/23 at 0954, For 1 dose Contrast Given 05/08/2023 10:06 AM CDT 18 mL documented in this encounter Orders Medications Ordered That Lanre ht Not Have Been Administered Count Last Ordered Date First Ordered Date gadoterate meglumine injection 18 mL 1 04/15 documented in this encounter Care Teams Learning Support Resource Room Teacher Relationship Specialty Start Date End Date Johnathon Braga DO [address] [place] [address] PCP - General 06/03/21 Giuseppe Da Silva MD [address] [place] [address] Referring Physician Neurology 03/03/23 documented as of this encounter
--- OUTSIDE RECORDS SUMMARY | 2024-09-03 07:58 | XMS_ITS | Encounter Summary ---
Author Organization [facility] Address [address] [place] [address] Phone Care Team Providers Care Residential Program Director Name Role Phone Omi Johnathon Marie Primary Care Provide r Giuseppe Da Silva MD Unavailable [phone]- [phone] Reason for Referral * Sleep Medicine (Routine) - Closed Specialty Diagnoses / Procedures Referred By Contelis t Referred To Contact Diagnoses ROSEMARIE (obstructive sleep apnea) Procedures PSG-Sleep Provider Use Only Indigo Olguin NP [address] [place] [address] Phone: tel: fax: External Order Referral ID Status Reason Start Date Expiration Date Visits Re quested Visits Authorized [id number] Closed 12/10/2023 01/08/2025 1 1 Encounter Details Date Type Department Care Team (Late st Contact Info) Description 12/10/2023 Orders Only [facility] Pediatric Neurology [address] [facility] [address] [place] [address] Indigo Olguin NP [address] [place] [address] ROSEMARIE (obstructive sleep apnea) (Primary Dx) Social [...] on file 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 Gender Identity Not on file Sexual Orientation Not on file documented as of this encounter Plan of Treatment Scheduled Orders Name Type Priority Associated Diagnoses Orde r Schedule PSG-Sleep Provider Use Only Sleep Center Routine ROSEMARIE (obstructive sleep apnea) 1 Occurrences starting 12/10/2023 until 12/09/2024 documented as of this encounter Visit Diagnoses Diagnosis ROSEMARIE (obstructive sleep apnea)- Primary Obstructive sleep apnea (adult) (pediatric) documented in this encounter Care Teams Residential Program Director Relationship Specialty Start Date End Date Johnathon Braga DO [address] [place] [address] PCP - General 06/03/21 Giuseppe Da Silva MD [address] [place] [address] Referring Physician Neurology 03/03/23 documented as of this encounter
--- OUTSIDE RECORDS SUMMARY | 2024-09-03 07:58 | XMS_ITS | Encounter Summary ---
Author Organization [facility] Address [address] [place] [address] Phone Care Team Providers Care Residential Substance Abuse Counselor Name Role Phone Johnathon Braga Primary Care Provide r Giuseppe Da Silva MD Unavailable [phone] Encounter Details Date Type Department Care Team (Late st Contact Info) Description 08/03/2023 Orders Only [facility] Neuro Sleep [address] [place] [address] Ingrid Goddard MD [address] [place] [address] Obstructive sleep apnea (Primary Dx) Social History Tobacco Use Types Packs/Day Years Used Date Smoking Tobacco: Never Smokeless Tobacco: Never Alcohol Use Standard Drinks/Week Comments No 0 (1 standard drink = 0.6 oz pur e alcohol) Sex and Gender Information Value Date Recorded Sex Assigned at Not on file Legal Sex Male 3:23 AM [employer] Gender Identity Not on file Sexual Orientation Not on file documented as of this encounter Plan of Treatment Not on file documented as of this encounter Procedures Procedure Name Priority Date/Time Associated Diagnosis Comments CPAP THERAPY Routine 12/07/2023 Obstructive sleep apnea documented in this encounter Results * CPAP Machine with Heated Humidifier (12/07/2023) us Ingrid Goddard MD DME ORDERABLES Final Result documented in this encounter Visit Diagnoses Diagnosis Obstructive sleep apnea- Primary Obstructive sleep apnea (adult) (pediatric) documented in this encounter Care Teams Residential Substance Abuse Counselor Relationship Specialty Start Date End Date Johnathon Braga DO [address] [place] [id number] PCP - General 06/03/21 Giuseppe Da Silva MD [address] [place] [phone] Referring Physician Neurology 03/03/23 documented as of this encounter
--- OUTSIDE RECORDS SUMMARY | 2024-09-03 07:58 | XMS_ITS | Encounter Summary ---
Author Organization [facility] Address [address] [place] [address] Phone Care Team Providers Care Manager Of Creative Services Name Role Phone Johnathon Braga DO Primary Care Provide r Giuseppe Da Silva MD Unavailable [phone] Reason for Referral * MRI/CAT/PET Scan (Routine) - Closed Specialty Diagnoses / Procedures Referred By Contelis t Referred To Contact Radiology Diagnoses Dementia, unspecified dementia severity, unspecified dementia type, unspecified whether behavioral, psychotic, or mood disturbance or anxiety (HCC) Traumatic brain injury with loss of consciousness, sequela (HCC) Procedures MRI Brain and Volumetric W WO Contrast Scooby Delvalle MD [address] [facility] [address] [place] [address] Phone: tel:[phone] fax: [address] [phone] Referral ID Status Reason Start Date Expiration Date Visits Re quested Visits Authorized [id number] Closed 04/22/2023 05/21/2024 1 1 Reason for Visit * Consultation (Routine) - Closed Specialty Diagnoses / Procedures Referred By Contelis t Referred To Contact Neurology Diagnoses Dementia, unspecified dementia severity, unspecified dementia type, unspecified whether behavioral, psychotic, or mood disturbance or anxiety (HCC) Johnathon Braga DO [address] [place] [address] Phone: tel: fax: [phone] [address] [facility] 6th [place] [address] [place] [address] Phone: tel: fax: Referral ID Status Reason Start Date Expiration Date V isits Requested Visits Authorized [id number] Closed Specialty Services Required 03/18/2023 04/16/2024 1 1 Encounter Details Date Type Department Care Team (Late st Contact Info) Description 04/22/2023 10:00 AM CDT Office Visit [facility] [address] [place] [address] 6th [place] [address] Scooby Delvalle MD [address] [facility] [address] [place] [address] [phone] (Fax) Traumatic brain injury with loss of consciousness, sequela (HCC) (Primary Dx); Dementia, unspecified dementia severity, unspecified dementia type, unspecified whether behavioral, psychotic, or mood disturbance or anxiety (HCC) Social History Tobacco Use Types Packs/Day Years Used Date Smoking Tobacco: Never Smokeless Tobacco: Never Alcohol Use Standard Drinks/Week Comments No 0 (1 standard drink = 0.6 oz pur e alcohol) Sex and Gender Information Value Date Recorded Sex Assigned at Not on file 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 Gender Identity Not on file Sexual Orientation Not on file documented as of this encounter Last Filed Vital Signs Vital Sign Reading Time Taken Comments Blood Pressure 123/77 04/22/2023 9:46 AM CDT Pulse 55 04/22/2023 9:46 AM CDT Temperature - - Respiratory Rate - - Oxygen Saturation - - Inhaled Oxygen Concentration - - Weight 98.4 kg (217 lb) 04/22/2023 9:46 AM CDT Height 180.3 cm (5' 11 ) 04/22/2023 9:46 AM CDT Body Mass Index 30.27 04/22/2023 9:46 AM CDT documented in this encounter Patient Instructions * Patient Instructions* Scooby Delvalle MD - 04/22/2023 10:00 AM CDT [facility] - VISIT SUMMARY & PATIENT INSTRUCTIONS For Mr. Wily Bahena (: 1955) [facility], Department of Neurology Clinic (Nurse Susan Decker) Who came with you to clinic today: Your Nayana Providers today were: Dr. Scooby Delvalle (attending physician) FEEDBACK/DIAGNOSTIC ISSUES REGARDING BRAIN HEALTH Thank you for coming to the [facility] today and for allowing us to participate in your medical care. 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 Memory and thinking test scores today: Your test scores today were: MMSE (Mini Mental Status Exam): Mini-Mental Total Score ((out of 30): 22 A perfect score on this test is 30. A score of of between 27-30 is considered normal. A score of 24-26 is considered mildly impaired. A score of 20-23 is impaired. Scores below 20 show moderate impairment and 10 or below shows severe impairment. Short Blessed Test: Short Blessed Total Score: 15 A perfect score on the Short Blessed Test is a 0 (higher score means poorer performance). A score of 4 or below is mild impairment. Scores of 5 or more indicate impairment. The maximum (worst) score is 28. RECOMMENDATIONS FOR FURTHER TESTING We have requested that the following studies be performed: Laboratory (Blood tests): We reviewed your lab results today and no additional lab tests are needed. Imaging Studies: MRI of the brain with contrast (dye) Other testing: no additional testing is indicated at this time Referrals to other providers: I will request that an outpatient clinic visit be scheduled with the following service(s): Sleep Neurology Discuss with your primary care doctor: I have recommended that you follow-up with your primary carepractitioner to discuss control of vascular risk factors (e.g., high blood pressure, high cholesterol, high blood glucose) MEDICATIONS DISCUSSED TODAY Changes to your medications were recommended today. Please change donepezil to morning. ADDITIONAL RECOMMENDATIONS/RESOURCES Nutrition: We recommend that you eat a balanced diet, including fruits and vegetables daily and regular servings of fish. Activity: We recommend that you engage in daily physical activity such as walking or stretching. Ifyou have not already done so, you should consider developing a regular exercise regimen. We recommend you do things that stimulate your mind, such as puzzles, books, working on hobbies, visiting with friends and relatives or engaging in other social and community activities. Sleep: Sleep can have a big effect on your memory and thinking. Make sure you get a good night's sleep every night. If you have trouble sleeping, make sure you follow these rules for basic sleep hygiene: -Get up at the same time every morning, regardless of how little or how poorly you sleep. -No napping during the day time. If naps are really necessary, nap for less than an hour and only nap before 3 PM. -Have a regular calm down time before going to bed. Do not work right up until bedtime. -Have a regular exercise schedule, as exercise helps consolidate sleep. -No caffeine for 6 hours before bedtime. -No watching T.V. or using the computer in your bedroom or at bedtime. -If you are not able to fall asleep after 20 minutes, get out of bed and do a relaxing activity fora few minutes. Driving: No concerns about driving safety were raised at today's visit. Going forward, we ask that a family member ride with you at least once a month to make sure you are still driving safely Safety: No safety concerns were discussed today. Legal: We suggested that you begin to plan for your future (Living Will, Power of Five Roll Refiner Batch Mixer for Health Care). You may wish to consult an joiner helper regarding these matters. Level of Care Recommendation: You can continue to live independently with support from your family. FOLLOW-UP You should return to see Dr. Delvalle in about a year. . You can [phone] if you have questions about scheduling. You should continue to see your primary care doctor at regular intervals. RESOURCES FOR ADDITIONAL INFORMATION AND SUPPORT We will refer you to our Alzheimer Association Equal Opportunity Specialist. The social work manager will call you in the next 7-10 days. Please look into the resources, regarding traumatic brain injury. Find Your ALISSON - Brain Injury Association of [place] (biausa.org) [place] / [place] - for resources Alzheimer's Association of [place] Chapter: ; (toll free); http://www.alz.org [facility] [phone] http://[facility] Agency on Aging (serving [facility]) http://[facility].[place].[facility]/government/hslaaa.html [facility] Agency on Aging (serving [facility] http://www.[facility].org [facility]- provides counseling and help with the aging and ailments of our loved ones. They may be able to provide counseling in your home as well as in their office and services may be covered by Medicare. [address], [place] [address] or [email or web address].Radialpoint. Website: http://[employer]/services/dnruhe-utrk-emhhbcny/ [employer], Cognitive Stimulation Through Activity at the [place]. [address] [place] [address] http://www.Algorithmics/project/dyui-ez-uoyisk/ Lewy Body Dementia Association: (toll free); http://www.LBDA.org Association for Frontotemporal Dementias: (toll free); http://www.ftd-picks.org Geriatric Driver Wheelchair: [employer], Ms. Sanam Coronel, https://www.decisionpointconsulting.org/ Pathways for aging http://Pongo Resume.ChannelMeter/ Lynette Templeton with [facility] [employer] [facility], Certified Product Mgmt Dev Manager, [address], [address] [address]. , fax: [phone]. . documented in this encounter Progress Notes * Scooby Delvalle MD - 04/22/2023 10:00 AM CDT [facility] NEW PATIENT VISIT Scooby Delvalle MD, MSc [facility] Department of Neurology Patient Name: WILY BAHENA Medical Record Number (MRN): [id number] Date of (): 1955 Encounter Date: 04/22/2023 Referring MD: Dr. Johnathon Braga* Primary Care Practitioner: Johnathon Balbuena DO CHIEF COMPLAINT Mr. Bahena is referred by Dr. Johnathon Braga* for the assessment of memory loss. REVIEW OF REFERRAL RECORDS Available referral records were reviewed in anticipation of today's assessment (review completed 04/22/2023), and pertinent results summarized below. Summary of referral records: referral for TBI Brain MRI (2018) : normal MRI He was followed by Dr. Fountain, for TBI. - behavioral disturbance and memory issues followed by psych. On donepezil / memantine HISTORY OF PRESENT ILLNESS Mr. Bahena is a 67 y.o. right handed gentleman with h/o TBI w/ behavioral disturbance, peripheral neuropathy, DM and HTN who comes to the [facility] today accompanied by his of 26 years who serves as the Collateral Source (CS). Mr. Bahena lives with his spouse, in their private home. The CS sees him daily. He is in generally fair health. Physically, he can't take the heat. Nightmares, yells. He sleeps a lot. The CS first noticed memory and thinking problems 5 years ago. The first problems noted were being forgetful. He did not have any issues prior to injury. He had a heat stroke at his work, and had fell and hit his head, lost consciousness. However, he never went to the doctors. Since then, he has dev eloped his constellations of symptoms including agitation, angry outbursts and irritability. He would yell and scream at CS, very irritable. He is followed by psychiatrists and therapists. He had ADDprior to accident that psychiatrist was seeing him for. CS can say something and would not remember. He would forget to pickle cutter his grandson up. He also has very bad and vivid dreams at night. This started likely after he was given donepezil. Problems began abruptly and have remained stable. Difficulties are now present consistently. Currently, he does misplace items more frequently than before. needs to help him with it. He has difficulty managing medications. took over the meds since the fall. He requires assistance managing appointments. CS does them. He is reliable in recalling details of recent events. He will repeat questions, stories and statements. He does not have difficulty coming up with words. He does have difficulty carrying on a conversation. May lose track in the middle. He does not hear well. Concerning orientation, he sometimes knows the day of the week, month and year. He has difficulty with time relationships. He is able to navigate in familiar areas only. He can't find ways as well. Judgment and problem solving abilities are only fair. He has difficulty with making a menu selection and understanding more complex issue. He is no longer appropriate in social situations. He drives without difficulty. He does not have access to firearms in the home. He doesn't have any debit card,as he lost so many of them. He has given up several community activities. He got disability. Enjoys spending time with his GS. He is able to shop independently for needs. His function at home is mildly impaired. He is able to manage simple chores (e.g., folding laundry,washing the dishes, and light cleaning). He is able to cook. He can still barbeque. He is no longerable to manage routine home maintenance. He may start and lose track. He is able to operate household appliances including the betting agency manager, laundry machines, and clockmaker. He has no difficulty using technology, including the television remote. He did not want to learn to use the cell phones. He has given up hobbies. He is fully capable of self care. He has fallen recently. Falls all the time. Has neuropathy. He requires the assistance of a caregiver, and is primarily cared for by . His caregiver is willing to continue to serve as caregiver but does not have sufficient support. Depression was assessed by administering the Geriatric Depression Scale; this was reviewed in psychometric package. The CS also reports that mood is poor. We have not seen the psychiatrist since 09/2022. On direct questioning, Mr. Bahena states that memory is short-tem is not reat. Tells me somethin I foget. He states that mood is fair. It's my anger. If I do something that I can't do well, I get mad. Sleep is not good. I feel tired when I get up. I take naps. Behavioral changes were assessed by administering the NPI-Q (Neuropsychiatric Inventory Questionnaire) to the CS: Delusions: absent Hallucinations: absent Agitation or Aggresion: present Depressed Mood: present Anxiety: absent Elation or Euphoria: absent Apathy or Indifference: present Disinhibition: absent Irritability or lability: present Motor: present, dizzy and wabbly. Has tremors. Nighttime behaviors/Sleep disturbance: present, he has sleep apnea, doesn't want to use CPAP. Nightmares. Appetite or eating issues/weight loss or gain: absent ACTIVE PROBLEMS There is no problem list on file for this patient. PAST MEDICAL HISTORY Past Medical History: Diagnosis Date Depression Gout Hypertension History reviewed. No pertinent surgical history. ALLERGIES Allergies Allergen Reactions Carbamazepine Rash and Swelling MEDICATIONS Current Outpatient Medications: acetaminophen (TYLENOL) 325 mg tablet, Take 2 tablets (650 mg total) by mouth every 4 (four) hours as needed for pain, Disp: 30 tablet, Rfl: 0 allopurinol (ZYLOPRIM) 300 mg tablet, Take 1 tablet (300 mg total) by mouth, Disp: , Rfl: aMILoride-hydroCHLOROthiazide (MODURETIC) 5-50 mg tablet, TK 1 T PO QD, Disp: , Rfl: 4 atorvastatin (LIPITOR) 10 mg tablet, , Disp: , Rfl: chlorthalidone 25 mg tablet, , Disp: , Rfl: cholecalciferol (VITAMIN D-3) 25 mcg (1,000 unit) tablet, Take 2 tablets (2,000 Units total) by mouth daily, Disp: , Rfl: dextromethorphan-quiNIDine (NUEDEXTA) 20-10 mg capsule, Take by mouth 2 (two) times a day, Disp: , Rfl: docosahexaenoic acid-epa 120-180 mg capsule, Take by mouth 2 (two) times a day, Disp: , Rfl: donepeziL (ARICEPT) 10 mg tablet, , Disp: , Rfl: geriatric multivitamin-min tablet, Take 1 tablet by mouth daily, Disp: , Rfl: hydrOXYzine (VISTARIL) 50 mg capsule, Take 1 capsule (50 mg total) by mouth 3 (three) times a day as needed, Disp: , Rfl: ibuprofen (ADVIL,MOTRIN) 800 mg tablet, Take 1 tablet (800 mg total) by mouth every 8 (eight) hoursas needed for pain, Disp: 90 tablet, Rfl: 1 lamoTRIgine (LaMICtal) 100 mg tablet, , Disp: , Rfl: meclizine (ANTIVERT) 25 mg tablet, TK 1 T PO TID PRN FOR DIZZINESS, Disp: , Rfl: 0 metFORMIN (GLUCOPHAGE) 850 mg tablet, Take 1 tablet (850 mg total) by mouth daily, Disp: , Rfl: modafiniL (PROVIGIL) 200 mg tablet, TAKE 1 TABLET BY MOUTH ONCE DAILY IN THE MORNING, Disp: , Rfl: lhfeuilfijwr-Af-ycsd-minerals tablet, Take by mouth., Disp: , Rfl: tamsulosin (FLOMAX) 0.4 mg extended release capsule, , Disp: , Rfl: testosterone cypionate (DEPO-TESTOTERONE) 200 mg/mL injection, INJECT 1 ML Q 2 WEEKS UTD, Disp: , Rfl: 5 venlafaxine XR (EFFEXOR-XR) 75 mg 24 hr capsule, Take 1 capsule (75 mg total) by mouth daily, Disp:, Rfl: VYVANSE 50 mg capsule, TK 1 C PO QAM, Disp: , Rfl: 0 propranolol LA (INDERAL LA) 60 mg 24 hr capsule, Take 1 capsule (60 mg total) by mouth daily, Disp:, Rfl: FAMILY & SOCIAL HISTORY Family History Problem Relation Age of Onset Memory loss Brother 70 Social History Tobacco Use Smoking status: Never Smokeless tobacco: Never Substance and Sexual Activity Drug use: No Sexual activity: None Alcohol Use: Not on file REVIEW OF SYSTEMS See Review of Systems form filled out by the patient and/or collateral source for today's visit. Reviewed and scanned into Electronic Health Record. Pertinent positives and negatives reported in HPI.All other systems negative. PHYSICAL EXAMINATION BP 123/77 (BP Location: Left arm, Patient Position: Sitting) Pulse 55 Ht 180.3 cm (5' 11 ) Wt98.4 kg (217 lb) BMI 30.27 kg/m?? General Assessment The patient appeared of average build and of stated age. He was dressed appropriately, and behaved normally throughout the interview, with euthymic affect and good conversational skills. No sensory intrusions / misperceptions were noted (i.e., no delusions and/or hallucinations). General physical examination revealed regular rate and rhythm without murmur. No carotid bruits were auscultated. There were no orthostatic complaints. Cranial Nerves Visual dunlap were full with no extinction on double simultaneous stimulation. Pupils were equal, round and reactive to light without relative afferent pupillary defect. Extraocular movements were full with normal smooth pursuit and saccadic eye movements. Facial sensation was intact in all three divisions of the trigeminal nerve. Facial movement was symmetric. Hearing was intact. Palate elevation was symmetric. Shoulder shrug and head turning were symmetric. Tongue protrusion was midline. Motor Motor exam revealed normal bulk, tone and strength throughout. Fine finger movements were symmetric. There was no pronator drift. There were no involuntary movements, including tremor. Rapid-alternating movements were completed normally (no bradykinesia). Reflexes Reflexes were symmetric at the biceps, triceps, brachioradialis and knees. Sensation Sensation was intact to pin-prick and vibratory sense. Coordination Aldhhh-oifw-eupnhz and mdrh-mfyn-kgdl testing were normal. Gait Gait was normal. Neurobehavioral Examination Affect: Flat Attention and Concentration: abnormal. He could not recite months of the year backwards. Language: He was fluent throughout the interview and examination, complying with four-steps of a four-step command. Confrontational naming was intact to low- frequency words. Repetition was preserved. Orientation: He was not fully oriented to time and place. (Missed date) Visuospatial: He was able to draw a clock, and indicate the correct time. He was able to copy intersecting pentagons. Calculations: He incorrectly calculated the number of quarters in $6.75. He incorrectly performed serial subtractions (3's). Memory: He adequately recalled the details of a recent event. He recalled 3/5 items on the Tu Brown memory phrase and 1/3 items on delayed recall testing on the MMSE. He demonstrated good insight concerning the purpose for today's visit. RECENT EVENT PER CS: MIREILLE Barbour, us went to [place], 04/02- . Had a condo there. Went to top ot the rock /' magic and music show, go carting/ He liked the top of the [employer] and [employer]. And country music show. Couple days he couldn't go. It was very hot. He had heat intolerability. Food - top of the [employer]'s food. [employer] restaurant. RECENT EVENT PER P: We went to [place]. About a week ago. 11 days. We went with my GS, Gerimansoorrafael. We stayed at the [place] lodge - <> then we went to [employer] We went for a trail ride at [employer]. Golf cart yard. Gocart rides. 2 shows, magic and music.Eat 7-8 times.k. couple places expensive and good. -Top of the [employer]. / sunset is really good. [employer] [place]) was really beautiful. Nice area. Similarities: Turnip/cauliflower:plants Desk/bookcase:furniture Differences: Lie/mistake:YI River/canal: canal is manufactured. COGNITIVE TESTING REPORT Please see neurobehavioral exam results (below) and summary sheet in the chart for test scores. On formal neurobehavioral testing, which took from 1000 h to 1026 h, scores were in the normal range on tests of semantic memory (O'Neals Naming, verbal fluency). Scores were in the very mildly impaired range on tests of episodic memory (word list memory task, word list recall, logical memory). Scores were in the moderately impaired range on tests of speeded psychomotor performance (trailmaking A , digit symbol), he could not perform trailmaking B. On more global tests, MMSE was 22 and Short Blessed was 15 . These findings are consistent with mild impairment, and could be seen in, but are not specific for subcortical disease . Mr. Bahena indicated a positive response to 4 of 8 answers on the Geriatric Depression Screening test. He denied feeling sad, blue or depressed for two weeks or longer during the prior year. In general, 4 or more positive responses on the Geriatric Depression Screening test are common in patients with active depression. [facility] Neurobehavioral Status Test Results 04/22/2023 7:00 AM [facility] Neurobehavioral Status Exam Results Repository ICF signed? No Verbal Fluency Total Score 22 O'Neals Naming (15 item) Total Score 15 MMSE Score 22 Word List Memory Task 20 Word List Recall 7 Short Blessed Total Score 15 Logical Memory Total Score 8 Trails A - Seconds to complete 57 Trails A - Errors 1 Total Score (out of 90) 30 Digit Symbol Errors 0 Clinical Dementia Rating 04/22/2023 7:00 AM [facility] CDR/DIAGNOSIS NEW Repository ICF signed? No Memory 0.5 Orientation 0.5 Judgement & Problem Solving 1 Community Affairs 0.5 Home & Hobbies 0.5 Personal Care 0 Global Score 0.5 Sum of Boxes 3 Year of Onset 2018 Uncertain Dementia Yes Mood disorder (any type) Active Major head trauma/TBI Active Sleep disorder Active ADDITIONAL SUMMARY OF RELEVANT MEDICAL RECORDS/ TESTING No results found for: VITB12, HOMOCYSTEINE, MTHMLNC No results found for: TSH, F3YYXZH, V9YKRIS, THYROIDAB Lab Results Component Value Date WBC 8.3 06/03/2021 HGB 15.3 06/03/2021 HCT 46.7 06/03/2021 MCV 91.2 06/03/2021 LABPLAT 146 (L) 06/03/2021 Lab Results Component Value Date GLUCOSE 89 06/03/2021 CALCIUM 9.2 06/03/2021 SODIUM 141 06/03/2021 POTASSIUM 3.6 06/03/2021 CO2 28 06/03/2021 CHLORIDE 105 06/03/2021 BUNSER 12 06/03/2021 CREATININE 0.93 06/03/2021 No results found for: ALT, AST, GGT, ALKPHOS, BILITOT DIAGNOSIS AND ASSESSMENT Mr. Bahena is a 67 y.o. gentleman with a family history of dementia, who presents with a 5 year history of stable cognitive decline after head trauma. The pattern of decline, findings on neurologicalexamination, psychometric test results and my neurobehavioral examination confirm very mild dementia. The most likely etiologic cause is traumatic brain injury . Other diagnostic considerations include contributions from poor sleep, untreated sleep apnea, medication effects and mood disorder . At the time of this visit, it is my opinion that he is able to make independent medical decisions. PLAN 1. Traumatic brain injury with loss of consciousness, sequela (HCC) 2. Dementia, unspecified dementia severity, unspecified dementia type, unspecified whether behavioral, psychotic, or mood disturbance or anxiety (HCC) 1. Diagnostic evaluation: A. Laboratory studies are reviewed and are complete. No further testing is indicated at this time. B. A brain MRI will be ordered to look for structural change or other causes that may contribute tocognitive impairment. C. Referral to sleep medicine for untreated sleep apnea, unable to tolerate CPAP, interested in procedures. 2. Treatment: - change donepezil to morning given the significant vivid dreams and nightmares. If with side effects or severe GI symptoms, can discontinue. 3. Activity: I recommended that Mr. Bahena remain physically active and socially engaged. Mr. Bahena and the CS were referred to the Brain Injury Association for additional educational resources. 4. Safety: No safety concerns were identified today. Mr. Bahena continues to drive. I recommended the family to ride with the patient at least once monthly to monitor safety. 5. Follow-up: I will see him again in one year. --- I spent 25 minutes interpreting the results of standardized neuropsychological testing, integratingthese results into clinical decision making and treatment plan, providing interactive feedback to the patient and family member(s)/caregiver(s) and report, and documenting this in the patient's chart. In addition to the interpretation time listed above (and exclusive of that time), I spent 75 minutes on the day of the encounter on activities related to the visit including preparing to see the patient by reviewing labs, tests and medical records, time spent [id number] with the patient and family during the visit, performing counselling and education, placing orders and documenting the visit in the patient's EHR. Scooby Delvalle MD, MSc Tobacco Stripping Machine Operator Department of Neurology, [facility] Detailed plan and patient/caregiver education and referrals are in AVS copied below: Patient Instructions [facility] - VISIT SUMMARY & PATIENT INSTRUCTIONS For Mr. Wily Bahena (: 1955) [facility], Department of Neurology Clinic (Nurse Susan Decker) Who came with you to clinic today: Your Nayana Providers today were: Dr. Scooby Delvalle (attending physician) FEEDBACK/DIAGNOSTIC ISSUES REGARDING BRAIN HEALTH Thank you for [facility] today and for allowing us to participate in your medical care. 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 Memory and thinking test scores today: Your test scores today were: MMSE (Mini Mental Status Exam): Mini-Mental Total Score ((out of 30): 22 A perfect score on this test is 30. A score of of between 27-30 is considered normal. A score of 24-26 is considered mildly impaired. A score of 20-23 is impaired. Scores below 20 show moderate impairment and 10 or below showssevere impairment. Short Blessed Test: Short Blessed Total Score: 15 A perfect score on the Short Blessed Test is a 0 (higher score means poorer performance). A score of 4 or below is mild impairment. Scores of 5 or more indicate impairment. The maximum (worst) score is 28. RECOMMENDATIONS FOR FURTHER TESTING We have requested that the following studies be performed: Laboratory (Blood tests): We reviewed your lab results today and no additional lab tests are needed. Imaging Studies: MRI of the brain with contrast (dye) Other testing: no additional testing is indicated at this time Referrals to other providers: I will request that an outpatient clinic visit be scheduled with the following service(s): Sleep Neurology Discuss with your primary care doctor: I have recommended that you follow-up with your primary carepractitioner to discuss control of vascular risk factors (e.g., high blood pressure, high cholesterol, high blood glucose) MEDICATIONS DISCUSSED TODAY Changes to your medications were recommended today. Please change donepezil to morning. ADDITIONAL RECOMMENDATIONS/RESOURCES Nutrition: We recommend that you eat a balanced diet, including fruits and vegetables daily and regular servings of fish. Activity: We recommend that you engage in daily physical activity such as walking or stretching. Ifyou have not already done so, you should consider developing a regular exercise regimen. We recommend you do things that stimulate your mind, such as puzzles, books, working on hobbies, visiting with friends and relatives or engaging in other social and community activities. Sleep: Sleep can have a big effect on your memory and thinking. Make sure you get a good night's sleep every night. If you have trouble sleeping, make sure you follow these rules for basic sleep hygiene: -Get up at the same time every morning, regardless of how little or how poorly you sleep. -No napping during the day time. If naps are really necessary, nap for less than an hour and only nap before 3 PM. -Have a regular calm down time before going to bed. Do not work right up until bedtime. -Have a regular exercise schedule, as exercise helps consolidate sleep. -No caffeine for 6 hours before bedtime. -No watching T.V. or using the computer in your bedroom or at bedtime. -If you are not able to fall asleep after 20 minutes, get out of bed and do a relaxing activity fora few minutes. Driving: No concerns about driving safety were raised at today's visit. Going forward, we ask that a family member ride with you at least once a month to make sure you are still driving safely Safety: No safety concerns were discussed today. Legal: We suggested that you begin to plan for your future (Living Will, Power of Five Roll Refiner Batch Mixer for Health Care). You may wish to consult an joiner helper regarding these matters. Level of Care Recommendation: You can continue to live independently with support from your family. FOLLOW-UP You should return to see Dr. Delvalle in about a year. . You can [phone] if you have questions about scheduling. You should continue to see your primary care doctor at regular intervals. RESOURCES FOR ADDITIONAL INFORMATION AND SUPPORT We will refer you to our Alzheimer Association Equal Opportunity Specialist. The social work manager will call you in the next 7-10 days. Please look into the resources, regarding traumatic brain injury. Find Your ALISSON - Brain Injury Association of [place] (biausa.org) [place] / [place] - for resources Alzheimer's Association of [place] Chapter: ; (toll free); http://www.alz.org [facility] [phone] http://[facility] Agency on Aging (serving [facility]) http://ed.[place].org/government/hslaaa.html [facility] Agency on Aging (serving [place], [facility] and [facility] http://www.city emergency hospitalaaa.org [facility]- provides counseling and help with the aging and ailments of our loved ones. They may be able to provide counseling in your home as well as in their office and services may be covered by Medicare. [address], [place] [address] or [email or web address]. Website: http://[employer]/services/yaqpmj-dlev-mbtatled/ [employer], Cognitive Stimulation Through Activity at the [place] [employer]™. [address] [facility] [address] [place] [address] http://www.Algorithmics/project/hqje-tr-equwqy/ Lewy Body Dementia Association: (toll free); http://www.LBDA.org Association for Frontotemporal Dementias: (toll free); http://www.ftd-picks.org Geriatric Driver Wheelchair: [employer], Ms. Sanam Coronel, https://www.decisionpointconsulting.org/ Pathways for aging http://AmimonforInMage Systems/ Lynette Templeton with [employer] Elder [employer]ist, Certified Product Mgmt Dev Manager, [address], [address], [place] [address]. , fax: [phone]. . documented in this encounter Plan of Treatment Not on file documented as of this encounter Results * MRI Brain and [...] images of the brain were postprocessed on BillGuard to generate segmented brain volumes using commercial software. Results were compared to 10th and 90th percentiles of healthy age-/gender-matched population. Graphs were sent to [employer] and [employer] PACS. The protocol specifically includes FLAIR to [...] images of the brain were postprocessed on BillGuard to generate segmented brain volumes using commercial software. Results were compared to 10th and 90th percentiles of healthy age-/gender-matched population. Graphs were sent to [employer] and [employer] PACS. The protocol specifically includes FLAIR to [...] it. Electronically signed by: Jimbo Gallo M.D. Scooby Delvalle MD [facility] MRI PROCEDURES Final Result documented in this encounter Visit Diagnoses Diagnosis Traumatic brain injury with loss of consciousness, sequela (HCC)- Primary Dementia, unspecified dementia severity, unspecified dementia type, unspecified whether behavioral, psychotic, or mood disturbance or anxiety (HCC) Dementia, unspecified dementia severity, unspecified dementia type, unspecified whether behavioral, psychotic, or mood disturbance or anxiety (HCC) Traumatic brain injury with loss of consciousness, sequela (HCC) documented in this encounter Discontinued Medications Medication Sig Discontinue Reason Start Date End Da te allopurinol (ZYLOPRIM) 300 mg tablet TK 1 T PO D Therapy completed 06/04/2017 04/22/2023 butalbital-acetaminophen -caffeine (FIORICET) 50-300-40 mg per capsule Take 1 capsule by mouth every 4 (four) hours as needed Therapy completed 06/24/2017 04/22/2023 hydrOXYzine (ATARAX) 50 mg tablet Therapy completed 05/21/2021 04/22/2023 HYDROcodone-acetaminophe n (NORCO) 5-325 mg per tabletIndications:Pain Take 1 tablet by mouth every 4 (four) hours as needed for pain Therapy completed 06/05/2021 04/22/[address] (Depakote) 500 mg EC tablet Take 1 tablet (500 mg total) by mouth 2 (two) times a day Therapy completed 04/22/2023 primidone (MYSOLINE) 50 mg tablet Take 1 tablet (50 mg total) by mouth 3 (three) times a day Therapy completed 09/12/2020 04/22/2023 sertraline (ZOLOFT) 100 mg tablet Take 1 tablet (100 mg total) by mouth Therapy completed 04/22/2023 documented as of this encounter Historical Medications * This list may reflect changes made after this encounter. propranolol LA (INDERAL LA) 60 mg 24 hr capsule Take 1 capsule (60 mg total) by mouth daily metFORMIN (GLUCOPHAGE) 850 mg tablet Take 1 tablet (850 mg total) by mouth daily 03/05/2023 12/09/2023 added in this encounter Orders Outpatient Referral Count Last Ordered Date Fir st Ordered Date AMB REFERRAL TO NEUROLOGY 1 04/22/2023 documented in this encounter Care Teams Manager Of Creative Services Relationship Specialty Start Date End Date Johnathon Braga DO [address] [place] [id number] PCP - General 06/03/21 Giuseppe Da Silva MD [address] [place] [id number] Referring Physician Neurology 03/03/23 documented as of this encounter
--- OUTSIDE RECORDS SUMMARY | 2024-09-03 07:59 | XMS_ITS | Encounter Summary ---
Author Organization [facility] Address [address] [place] [address] Phone Care Team Providers Care Social Service Worker Name Role Phone Johnathon Braga Primary Care Provide r Reason for Visit * Reason Comments Pain Encounter Details Date Type Department Care Team (Late st Contact Info) Description 06/18/2021 11:20 AM CDT Office Visit [facility] Orthopaedic Surgery [address] [place] [address] 6th [place] [address] [place] [address] Jimbo Conner MD [facility] [address] [place] [address] Open nondisplaced fracture of proximal phalanx of right middle finger, initial encounter (Primary Dx) Social History Tobacco Use Types Packs/Day Years Used Date Smoking Tobacco: Never Smokeless Tobacco: Never Alcohol Use Standard Drinks/Week Comments No 0 (1 standard drink = 0.6 oz pur e alcohol) Sex and Gender Information Value Date Recorded Sex Assigned at Not on file 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 ESTABLISHED PATIENT VISIT INTERIM HISTORY Wily Bahena returns to the office today. He had a table saw injury to the middle finger. He has a complex medical history where he has neuropathy and a history of a head injury in 2017. Here with his . He has PHYSICAL EXAMINATION Well-healed traumatic laceration over the middle finger PIP joint. Finger nicely aligned. Decreasedsensation over the radial digital nerve. Well perfused. IMPRESSION/TREATMENT PLAN/FOLLOW UP We are going to place him in a hand based splint for just the middle finger PIP joint. He will comeout of the splint to do active and active assist range of motion. Coban for edema control. See backin four weeks time. Will let therapist determine whether not continued hand surgical office visits are indicated Jimbo Conner M.D., MSc, FRCS(C) Professor [facility] Orth[facility] documented in this encounter Plan of Treatment Not on file documented as of this encounter Visit Diagnoses Diagnosis Open nondisplaced fracture of proximal phalanx of right middle finger, initial encounter- Primary documented in this encounter Historical Medications * This list may reflect changes made after this encounter. tamsulosin (FLOMAX) 0.4 mg extended release capsule Take 1 capsule (0.4 mg total) by mouth daily 06/12/2021 lamoTRIgine (LaMICtal) 100 mg tablet Take 1 tablet (100 mg total) by mouth 2 (two) times a day 05/30/2021 hydrOXYzine (VISTARIL) 50 mg capsule Take 1 capsule (50 mg total) by mouth 3 (three) times a day as needed 10/05/2017 donepeziL (ARICEPT) 10 mg tablet Take 1 tablet (10 mg total) by mouth nightly 06/12/2021 cholecalciferol (VITAMIN D-3) 25 mcg (1,000 unit) tablet Take 2 tablets (2,000 Units total) by mouth daily chlorthalidone 25 mg tablet Take 1 tablet (25 mg total) by mouth daily 03/22/2021 atorvastatin (LIPITOR) 10 mg tablet 03/28/2021 venlafaxine XR (EFFEXOR-XR) 75 mg 24 hr capsule Take 1 capsule (75 mg total) by mouth daily 05/10/2018 12/09/2023 primidone (MYSOLINE) 50 mg tablet Take 1 tablet (50 mg total) by mouth 3 (three) times a day 09/12/2020 04/22/2023 modafiniL (PROVIGIL) 200 mg tablet TAKE 1 TABLET BY MOUTH ONCE DAILY IN THE MORNING 06/10/2021 12/09/2023 hydrOXYzine (ATARAX) 50 mg tablet 05/21/2021 04/22/2023 docosahexaenoic acid-epa 120-180 mg capsule Take by mouth 2 (two) times a day 12/09/[address] (Depakote) 500 mg EC tablet Take 1 tablet (500 mg total) by mouth 2 (two) times a day 04/22/2023 dextromethorphan- quiNIDine (NUEDEXTA) 20-10 mg capsule Take by mouth 2 (two) times a day 12/09/2023 butalbital-acetam inophen-caffeine (FIORICET) 50-300-40 mg per capsule Take 1 capsule by mouth every 4 (four) hours as needed 06/24/2017 04/22/2023 added in this encounter Care Teams Social Service Worker Relationship Specialty Start Date End Date Johnathon Braga DO [address] [place] [id number] PCP - General 06/03/21 documented as of this encounter
--- OUTSIDE RECORDS SUMMARY | 2024-09-03 07:59 | XMS_ITS | Encounter Summary ---
Author Organization [facility] Healthcare Address [address] [place] [address] Care Team Providers Care Doll Wig Hackler Name Role Phone Krisranjancarlin Johnathon Marie DO Primary Care Provide r Reason for Visit * Reason Comments Hand Injury Encounter Details Date Type Department Care Team (Late st Contact Info) Description 06/03/2021 8:25 PM CDT - 06/04/2021 12:[address] [facility] Emergency Department [address] [place] [id number] Open nondisplaced fracture of proximal phalanx of right middle finger, initial encounter (Primary Dx); Laceration of right index finger without foreign body without damage to nail, initial encounter Discharge Disposition: Discharge to home or self care Social History Tobacco Use Types Packs/Day Years Used Date Smoking Tobacco: Never Smokeless Tobacco: Never Alcohol Use Standard Drinks/Week Comments No 0 (1 standard drink = 0.6 oz pur e alcohol) Sex and Gender Information Value Date Recorded Sex Assigned at Not on file 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 Gender Identity Not on file Sexual Orientation Not on file documented as of this encounter Last Filed Vital Signs Vital Sign Reading Time Taken Comments Blood Pressure 147/72 06/04/2021 12:30 AM CDT Pulse 62 06/04/2021 12:30 AM CDT Temperature 36.7 ??C (98.1 ??F) 06/03/2021 3:25 PM CD T Respiratory Rate 16 06/04/2021 12:30 AM CDT Oxygen Saturation 97% 06/04/2021 12:30 AM CDT Inhaled Oxygen Concentration - - Weight 102.1 kg (225 lb) 06/03/2021 3:25 PM CDT Height 180.3 cm (5' 11 ) 06/03/2021 3:25 PM CDT Body Mass Index 31.38 06/03/2021 3:25 PM CDT documented in this encounter Discharge Diagnoses Diagnosis Displaced fracture of proximal phalanx of right middle finger, initial encounter for open fracture - DISPLACED FRACTURE OF PROXIMAL PHALANX OF RIGHT MIDDLE FINGER, INITIAL ENCOUNTER FOR OPEN FRACTURE Contact with other powered hand tools and household machinery, initial encounter - CONTACT WITH OTHER POWERED HAND TOOLS AND HOUSEHOLD MACHINERY, INITIAL ENCOUNTER Activity, other specified - ACTIVITY, OTHER SPECIFIED Unspecified place or not applicable - UNSPECIFIED PLACE OR NOT APPLICABLE Essential (primary) hypertension - ESSENTIAL (PRIMARY) HYPERTENSION Unspecified essential hypertension documented in this encounter Discharge Instructions * Discharge Instructions* Teagan Eduardo NP - 06/03/2021 11:55 PM CDT Keep dressing and splint clean and dry. No weight bearing in your right hand. Return promptly to the emergency department if you experience: increased pain, swelling, redness, discoloration or your fingers, pus draining from your wound, or any concern. documented in this encounter Medications at Time of Discharge allopurinol (ZYLOPRIM) 300 mg tablet Take 1 tablet (300 mg total) by mouth atorvastatin (LIPITOR) 10 mg tablet 03/28/2021 chlorthalidone 25 mg tablet Take 1 tablet (25 mg total) by mouth daily 03/22/2021 geriatric multivitamin-min tablet Take 1 tablet by mouth daily hydrOXYzine (VISTARIL) 50 mg capsule Take 1 capsule (50 mg total) by mouth 3 (three) times a day as needed 10/05/2017 lamoTRIgine (LaMICtal) 100 mg tablet Take 1 tablet (100 mg total) by mouth 2 (two) times a day 05/30/2021 meclizine (ANTIVERT) 25 mg tablet 3 (three) times a day as needed 0 06/09/2017 testosterone cypionate (DEPO-TESTOTERON E) 200 mg/mL injection [...] 4 (four) hours as needed 06/24/2017 3 cephalexin (KEFLEX) 500 mg capsuleIndicatio ns:Skin/Soft Tissue Infection Take 1 capsule (500 mg total) by mouth 4 (four) times a day for 7 days 28 capsule 06/03/2021 1 hydrOXYzine (ATARAX) 50 mg tablet 05/21/2021 3 multivitamin-Ca- iron-minerals tablet Take by mouth. 4 [...] 06/03/2017 4 documented as of this encounter Ordered Prescriptions Prescription Sig Dispense Quantity Refills Last Filled Start Date End Date acetaminophen (TYLENOL) 325 mg tablet Take 2 tablets (650 mg total) by mouth every 4 (four) hours as needed for pain 30 tablet 06/03/2021 4 cephalexin (KEFLEX) 500 mg capsuleIndications :Skin/Soft Tissue Infection Take 1 capsule (500 mg total) by mouth 4 (four) times a day for 7 days 28 capsule 06/03/2021 1 documented in this encounter Discharge Disposition Disposition Code Departure Means Destination Discharge to home or self care documented in this encounter Procedure Notes * Cristiane Crain MD - 06/04/2021 12:53 AM CDT Procedures Date of Procedure: 07/05/2021 Indication: Right middle finger open fx Block: Lidocaine digital block: skin prepped with chlorhexidine, 5cc 1% lidocaine injected into theulnar/radial digital nerves using 21G needle Irrigation: NS Procedure: Laceration Repair: After appropriate analgesia, the laceration was closed with non-dissolvable sutures. The laceration measured 3 cm and violated the deep dermis. Suture: 4-0 chromic Dressing: n/a Immobilization: Radial Gutter Splint: 10 sheets of 5in x 30in plaster, 2in and 3in webril, 3in MARY KAY wraps x 2. Hand placed in intrinsic plus position, thumb left free. documented in this encounter Consult Notes * Cristiane Crain MD - 06/04/2021 12:15 AM CDTAssociated Order(s): IP CONSULT TO ORTHOPEDIC SURGERY Images from the original note were not included. Orthopaedic Surgery Hand/Flap Service Consult June 04, 2021 12:15 AM Reason for Consult: finger laceration Requesting Provider: ED Imaging and notes were reviewed and evaluated within 30 minutes of consultation. Att: MIB/EH/C Injury: 06/03 table saw injury Dx: R type 1 open 3rd P1 head fx with possible digital n. injury Relevant History: peripheral neuropathy Surgeries: non-op R type 2 open 3rd P1 head fx, f/u in clinic in 1 week for discussion of possible digital n injury and extensor lac repair HPI: 65 y.o. right hand dominant male s/p table saw injury p/w above. Exam: 3cm radial lac at PIPJ,intact extensor mechanism with partial (<50% extensor tendon laceration), intact flexion at PIPJwhen isolated, doppl r/u signals 3rd digit, 2PD 8/12/>15r, 15u/>15/15 (in setting of known peripheral neuropathy), grossly sensate except numbness radial aspect of 3rd digit distal to laceration OI: abrasion distal phalanx of IF. Consulting Services: n/a. 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 Soc Hx: non smoker, - EtOH, - drugs, comm amb w/o assist, lives w/ spouse Edited by: Cristiane Crain MD at 06/04/2021 0015 Location: right upper extremity Quality: throbbing pain Duration: hours Severity: moderate Past Medical History: Diagnosis Date ??? Depression ??? Gout ??? Hypertension History reviewed. No pertinent surgical history. Prior to Admission medications Medication Sig Start Date End Date Taking? Authorizing Provider acetaminophen (TYLENOL) 325 mg tablet Take 2 tablets (650 mg total) by mouth every 4 (four) hours as needed for pain 06/03/21 Teagan Eduardo NP allopurinol (ZYLOPRIM) 300 mg tablet TK 1 T PO D 06/04/17 Keith Escalante MD allopurinol (ZYLOPRIM) 300 mg tablet Take 300 mg by mouth. Keith Escalante MD aMILoride-hydroCHLOROthiazide (MODURETIC) 5-50 mg tablet TK 1 T PO QD 06/04/17 Keith Escalante MD cephalexin (KEFLEX) 500 mg capsule Take 1 capsule (500 mg total) by mouth 4 (four) times a day for 7 days 06/03/21 06/10/21 Teagan Eduardo NP geriatric multivitamin-min tablet Take 1 tablet by mouth daily. Keith Escalante MD meclizine (ANTIVERT) 25 mg tablet TK 1 T PO TID PRN FOR DIZZINESS 06/09/17 Keith Escalante MD qsaignbpsmst-Nz-wdqc-minerals tablet Take by mouth. Keith Escalante MD sertraline (ZOLOFT) 100 mg tablet Take 100 mg by mouth. Keith Escalante MD testosterone cypionate (DEPO-TESTOTERONE) 200 mg/mL injection INJECT 1 ML Q 2 WEEKS UTD 06/09/17 Keith Escalante MD VYVANSE 50 mg capsule TK 1 C PO QAM 06/03/17 Keith Escalante MD No Known Allergies Social History Tobacco Use ??? Smoking status: Never Smoker ??? Smokeless tobacco: Never Used Substance Use Topics ??? Alcohol use: No History reviewed. No pertinent family history. Review of Systems: Constitutional: Negative for chills and fever. HENT: Negative for acute hearing loss Eyes: Negative for pain and visual disturbance. Respiratory: Negative for cough and shortness of breath. Cardiovascular: Negative for chest pain and palpitations. Gastrointestinal: Negative for abdominal pain and vomiting. Genitourinary: Negative for dysuria and hematuria. Musculoskeletal: pain in injured extremity Skin: Negative for acute rash. Neurological: Negative for seizures and syncope. Review of systems per HPI and otherwise all other systems are negative. Objective Vitals: 24hr Min/Max: Temp Min: 36.7 ??C (98.1 ??F) Max: 36.7 ??C (98.1 ??F) Pulse Min: 57 Max: 71 BP Min: 135/74 Max: 151/71 Resp Min: 14 Max: 16 SpO2 Min: 95 % Max: 99 % Most Recent: Vitals: 06/03/21 2230 06/03/21 2300 06/03/21 2330 06/04/21 0000 BP: 142/81 139/71 135/74 151/71 Pulse: 62 62 61 63 Resp: 15 Temp: TempSrc: SpO2: 97% 95% 96% 96% Weight: Height: Physical Exam: Gen: Well-developed, well-nourished, in no acute distress. A&O: x3 Normal respirations, no dyspnea with speaking RUE Obvious deformity, as described in HPI and in image, Please see HPI for full exam Lab/Radiology/Diagnostic Review: Laboratory review: Recent Results (from the past 24 hour(s)) CBC with auto differential Collection Time: 06/03/21 8:52 PM Result Value Ref Range WBC 8.3 3.8 - 9.9 K/cumm Hgb 15.3 13.0 - 17.5 g/dL Hct 46.7 38.9 - 50.3 % Plt 146 (L) 150 - 400 K/cumm MPV 11.0 9.1 - 12.3 fL RBC 5.12 4.30 - 5.80 M/cumm MCV 91.2 81.3 - 96.4 fL MCH 29.9 27.1 - 33.3 pg MCHC 32.8 32.3 - 35.7 g/dL RDW CV 13.9 11.1 - 14.9 % RDW SD 46.5 35.7 - 48.1 fL NRBC abs 0.00 0.00 - 0.01 K/cumm Basic metabolic panel Collection Time: 06/03/21 8:52 PM Result Value Ref Range Sodium 141 135 - 145 mmol/L Potassium, pl 3.6 3.3 - 4.9 mmol/L Chloride 105 97 - 110 mmol/L CO2 28 22 - 32 mmol/L Anion gap 8 2 - 15 mmol/L BUN 12 8 - 25 mg/dL Creatinine 0.93 0.80 - 1.30 mg/dL Glucose 89 70 - 199 mg/dL Calcium 9.2 8.5 - 10.3 mg/dL Type and screen Collection Time: 06/03/21 8:52 PM Result Value Ref Range ABO Rh O Positive Galdino, indirect Negative Differential, auto Collection Time: 06/03/21 8:52 PM Result Value Ref Range Neutrophil abs 5.8 1.7 - 6.5 K/cumm Imm gran abs 0.0 0.0 - 0.1 K/cumm Lymphocyte abs 1.6 0.8 - 3.3 K/cumm Monocyte abs 0.7 0.2 - 0.8 K/cumm Eosinophil abs 0.2 0.0 - 0.5 K/cumm Basophil abs 0.0 0.0 - 0.1 K/cumm Neutrophil pct 69.6 % Imm gran pct 0.4 % Lymphocyte pct 19.7 % Monocyte pct 7.9 % Eosinophil pct 1.9 % Basophil pct 0.5 % eGFR Collection Time: 06/03/21 8:52 PM Result Value Ref Range eGFR 87 (L) 90 - 130 mL/min/1.73 m2 Check Sample Collection Time: 06/03/21 10:04 PM Result Value Ref Range ABO Rh O Positive Radiology Review: I have reviewed the imaging with the following findings: XR shows P1 head fx of R 3rd digit Clinical Images: Procedure: Please see separate procedure note for details. Assessment/Plan: 65 y.o. male p/w above. Ortho planning for non-operative management of above injury. Plan to f/u outpatient in clinic for discussion of possible digital n. Injury repair 1. Likely d/c from ED. Please don't d/c before speaking with ortho 2. Weight Bearing: NWB RUE in radial gutter splint in IP 3. Please d/c with 1 week of keflex 4. Further Imaging: post-splint xr 5. Pain control: per ED 6. Keep splint clean and dry, elevation above level of the heart 7. Abx: Keflex 7-10 days 8. Will discuss with the ortho hand team prior to further recommendations. Follow-up will be arranged by the orthopaedic team. Recommend plan for follow-up at [facility] (call [phone] to confirm appointment) in 1 week(s). Cristiane Crain MD Orthopaedic Surgery PGY2 ?? Normal business hours: If you know the resident's name on the appropriate orthopaedic surgery team, please use the Directory Search at [email or web address] to page resident directly. ?? If questions arise and the appropriate resident can't be reached or you are calling overnight, please contact [phone] ([place]- 7:30 PM - 6:30 AM - Floor Resident) or [phone] (24 hours/day- Consult Resident) Cosigned by Jimbo Conner MD at 06/04/2021 10:36 AM CDT documented in this encounter ED Notes * Teagan Eduardo, HARD CANDY BATCH MIXER - 06/03/2021 8:58 PM CDT 65 YM with h/o HTN, depression, gout, post concussive syndrome, peripheral neuropathy, transferred from osh with injury to right 2nd and 3rd fingers. Pt states today he was using table saw when he accidentally cut hisfingers with the saw.He was seen at OSH, received Tetanus (10:55 am) and Ancef 2 grams ( 11:18 hrs). Xray Findings comminuted fracture of proximal phalanx 3rd right finger. He is right hand dominant. SH: denies tobacco, alcohol and recreational drug use. FH: mother cancer. HPI Chief Complaint Patient presents with ??? Hand Injury HPI Patient History: There are no problems to display for this patient. Past Medical History: Diagnosis Date ??? Depression ??? Gout ??? Hypertension History reviewed. No pertinent surgical history. History reviewed. No pertinent family history. Social History Tobacco Use ??? Smoking status: Never Smoker ??? Smokeless tobacco: Never Used Substance Use Topics ??? Alcohol use: No ??? Drug use: No Social History Social History Narrative ??? Not on file Review of Systems Review of Systems Constitutional: Negative. HENT: Negative. Respiratory: Negative. Cardiovascular: Negative. Skin: Positive for wound (right index and long finger. ). Neurological: Has neuropathy at baseline. Psychiatric/Behavioral: Negative. All other systems reviewed and are negative. Physical Exam ED Triage Vitals [06/03/21 1525] Temp Pulse Resp BP SpO2 36.7 ??C (98.1 ??F) 71 14 146/88 98 % Temp src Heart Rate Source Patient Position BP Location FiO2 (%) Oral -- -- -- -- Physical Exam Vitals reviewed. Constitutional: Appearance: Normal appearance. He is obese. HENT: Head: Normocephalic and atraumatic. Eyes: Conjunctiva/sclera: Conjunctivae normal. Pulmonary: Effort: Pulmonary effort is normal. Musculoskeletal: Comments: Right index finger with skin avulsion stock tip. 3rd finger with jagged laceration proximal PIP. Bleeding controlled, Normal sensory perception. Capillary refill < 2 seconds. Skin: General: Skin is warm and dry. Neurological: General: No focal deficit present. Mental Status: He is alert and oriented to person, place, and time. Psychiatric: Mood and Affect: Mood normal. Behavior: Behavior normal. [facility] Medical Decision Making Differential Diagnosis or Management Options: Pt with comunited fracture proximal phalanx right 3rdfinger. Transferred by OSH. He received tetanus and Ancef at OSH. Plan: Ortho/hand consult. Reviewed previous records: Outside facility I have independently reviewed xray/CT(s). Interpretation:: Xray and labs. ED Course as of Jun 04 423 Time: 06/03 2123 Comment: Ortho surgery assessing pt. By: Teagan Eduardo NP Time: 06/04 0123 Comment: Ortho hand repaired laceration, placed splint, recommended Keflex for 1 week. Non weight bearing and f/u with in 1 week. By: Teagan Eduardo NP Final diagnoses: Open nondisplaced fracture of proximal phalanx of right middle finger, initial encounter Laceration of right index finger without foreign body without damage to nail, initial encounter Teagan Eduardo NP 06/04/214 * Koki Fu RN - 06/03/2021 3:28 PM CDT Pt to the ED with complaints of a finger laceration. Pt was sawing today and went to across the sawwith his Right hand and got his middle and index finger. Upon assessment laceration across the medial portion of the finger into the outer portion of the finger, 5cm, and bleeding controlled with a dressing on at this time. Pt denies being on blood thinners, A&Ox4, and no signs of distress. documented in this encounter Miscellaneous Notes * ED Procedure Note - Branden Jacob MD - 06/03/2021 11:03 PM CDT Procedure Procedures I was present for the entire procedure performed by orthopedic resident. Branden Jacob MD 06/03/219 * ED Pre-Arrival Note - Eufemia Cha RN - 06/03/2021 2:02 PM CDT Pre-Arrival Note Pt being transferred from [place], accepted by MD Dill with ortho/hand, MD Angel accepted as level 3 trauma. Pt was using saw and cut middle finger R hand into PIP joint. Coming by ground. Eufemia Cha, RN documented in this encounter Plan of Treatment Not on file documented as of this encounter Procedures Procedure Name Priority Date/Time Associated Diagnosis Comments XR HAND RIGHT 3 OR MORE VIEWS ED 06/04/2021 12:20 AM CDT B CHECK SAMPLE STAT 06/03/2021 10:04 PM CDT EGFR STAT 06/03/2021 8:52 PM CDT DIFFERENTIAL AUTO STAT 06/03/2021 8:5 2 PM CDT CBC WITH AUTO DIFFERENTIAL STAT 06/03/2021 8:52 PM CDT TYPE AND SCREEN STAT 06/03/2021 8:52 PM CDT BASIC METABOLIC PANEL STAT 06/03/2021 8:52 PM CDT XR HAND RIGHT 3 OR MORE VIEWS ED 06/03/2021 4:33 PM CDT documented in this encounter Results * XR Hand Right 3 or More Views (06/04/2021 12:20 AM CDT) Anatomical Region Laterality Modality Upper Extremities, Hand Right Computed Radiography 06/04/2021 12:4 4 AM CDT Impressions 06/04/2021 4:54 PM CDT Overlying cast material and patient positioning limit evaluation. Changes of interval repair of the right 3rd digit, with intra-articular fractures of the distal aspect of the proximal phalanx and proximal aspect of the middle phalanx better evaluated on prior examination. ??No definite new fracture identified. ??Density in the distal thumb is again favored represent a foreign body. ??There is soft tissue swelling of the 1st through 3rd digits. Dictated by: Will Cisneros M.D. The radiology attending physician has personally reviewed this study, and had reviewed and/or edited this written report and agrees with it. Electronically signed by: José Manuel Marshall M.D. Narrative 06/04/2021 4:54 PM CDT EXAMINATION: XR HAND RIGHT 3 OR MORE VIEWS HISTORY: Saw injury of the 3rd digit of the right hand status post repair COMPARISON: Right hand radiographs from earlier same day 06/03/2021 Procedure Note José Manuel Marshall MD - 06/04/2021 EXAMINATION: XR HAND RIGHT 3 OR MORE VIEWS HISTORY: Saw injury of the 3rd digit of the right hand status post repair COMPARISON: Right hand radiographs from earlier same day 06/03/2021 IMPRESSION: Overlying cast material and patient positioning limit evaluation. Changes of interval repair of the right 3rd digit, with intra-articular fractures of the distal aspect of the proximal phalanx and proximal aspect of the middle phalanx better evaluated on prior examination. No definite new fracture identified. Density in the distal thumb is again favored represent a foreign body. There is soft tissue swelling of the 1st through 3rd digits. Dictated by: Will Cisneros M.D. The radiology attending physician has personally reviewed this study, and had reviewed and/or edited this written report and agrees with it. Electronically signed by: José Manuel Marshall M.D. us Teagan Eduardo HARD CANDY BATCH MIXER IMG XR PROCEDURES Final Res ult * Check Sample (06/03/2021 10:04 PM CDT) ABO Rh O Positive [facility] OTHER 06/03/2021 10:0 4 PM CDT 06/03/2021 10:11 PM CDT us Notinfile Unknown LAB BLOOD ORDERABLES Final Res ult [facility] [place] [address] * (ABNORMAL) eGFR (06/03/2021 8:52 PM CDT) eGFR 87(L) 90 - 130 mL/min/1.7 3 m2 [facility] Comment: Interpretive Data Reference Interval Normal ?>/= 90 mL/min/1.73m2 Mildly decreased* ? 60 - 89 mL/min/1.73m2 Mildly to moderately decreased ?45 - 59 mL/min/1.73m2 Moderately to severely decreased ??30 - 44 mL/min/1.73m2 Severely decreased ?15 - 29 mL/min/1.73m2 Kidney Failure ?< 15 ??mL/min/1.73m2 *Relative to young adult level Estimated glomerular filtration rate is determined by the CKD-EPI equation recommended by the National Kidney Foundation (KDIGO 2012 Clinical Practice Guideline for the Evaluation and Management of Chronic Kidney Disease. Kidney Intnl Suppl Sep 2012;3:1). The CKD-EPI equation should not be used for patients with unstable renal function and has not been validated in children and those over 70. Current interpretive data was last reviewed 2020 Blood 06/03/2021 8:52 PM CDT 06/03/2021 9:07 PM CDT us Evangelina Frederick MD LAB BLOOD ORDERABLES Final R esult [facility] [place] [address] * Differential, auto (06/03/2021 8:52 PM CDT) Neutrophil abs 5.8 1.7 - 6.5 K/cumm [facility] Imm gran abs 0.0 0.0 - 0.1 K/cumm [facility] Lymphocyte abs 1.6 0.8 - 3.3 K/cumm [facility] Monocyte abs 0.7 0.2 - 0.8 K/cumm [facility] Eosinophil abs 0.2 0.0 - 0.5 K/cumm [facility] Basophil abs 0.0 0.0 - 0.1 K/cumm [facility] Neutrophil pct 69.6 % [facility] Comment: Interpretive Data Percent cell count reference ranges are not reported, since discordance with absolute values may lead to misinterpretation of CBC data. Current Interpretive Data was last revised on 2017. Imm gran pct 0.4 % [facility] Comment: Interpretive Data Percent cell count reference ranges are not reported, since discordance with absolute values may lead to misinterpretation of CBC data. Current Interpretive Data was last revised on 2017. Lymphocyte pct 19.7 % [facility] Comment: Interpretive Data Percent cell count reference ranges are not reported, since discordance with absolute values may lead to misinterpretation of CBC data. Current Interpretive Data was last revised on 2017. Monocyte pct 7.9 % [facility] Comment: Interpretive Data Percent cell count reference ranges are not reported, since discordance with absolute values may lead to misinterpretation of CBC data. Current Interpretive Data was last revised on 2017. Eosinophil pct 1.9 % [facility] Comment: Interpretive Data Percent cell count reference ranges are not reported, since discordance with absolute values may lead to misinterpretation of CBC data. Current Interpretive Data was last revised on 2017. Basophil pct 0.5 % [facility] Comment: Interpretive Data Percent cell count reference ranges are not reported, since discordance with absolute values may lead to misinterpretation of CBC data. Current Interpretive Data was last revised on 2017. Blood 06/03/2021 8:52 PM CDT 06/03/2021 9:07 PM CDT us Evangelina Frederick MD LAB BLOOD ORDERABLES Final R esult [facility] [place] [address] * Type and screen (06/03/2021 8:52 PM CDT) ABO Rh O Positive [facility] Galdino, indirect Negative [facility] Blood 06/03/2021 8:52 PM CDT 06/03/2021 9:01 PM CDT Narrative [facility] - 06/03/2021 9:50 PM CDT Has the patient had Daratumumab or Isatuximab in the past 6 months?->Unknown Evangelina Frederick MD LAB BLOOD BANK TEST ORDERABL ES Final Result [facility] [place] [address] * Basic metabolic panel (06/03/2021 8:52 PM CDT) Pathologist [facility] Sodium 141 135 - 145 mmol/L [facility] Potassium, pl 3.6 3.3 - 4.9 mmol/L [facility] Chloride 105 97 - 110 mmol/L [facility] CO2 28 22 - 32 mmol/L [facility] Anion gap 8 2 - 15 mmol/L [facility] BUN 12 8 - 25 mg/dL [facility] Creatinine 0.93 0.80 - 1.30 mg/dL [facility] Glucose 89 70 - 199 mg/dL [facility] Comment: Interpretive Data Fasting glucose >/= 126 mg/dl is diagnostic for diabetes. ?? Fasting is defined as no caloric intake for at least 8 hours. Fasting glucose between 100 mg/dl to 125 mg/dl is diagnostic of prediabetes. In a patient with classic symptoms of hyperglycemia or hyperglycemic crisis, a random glucose >/= 200 mg/dl is diagnostic for diabetes. In the absence of unequivocal hyperglycemia, results should be confirmed by repeat testing. The classification and Diagnosis of Diabetes Diabetes Care 2017;40 (Suppl. 1):S11. Current interpretive data was last revised 2017. Calcium 9.2 8.5 - 10.3 mg/dL [facility] Blood 06/03/2021 8:52 PM CDT 06/03/2021 9:07 PM CDT us Evangelina Frederick MD LAB BLOOD ORDERABLES Final R esult Performing Organization Address [facility] [facility] Co de Phone Number [facility] [place] [address] * (ABNORMAL) CBC with auto differential (06/03/2021 8:52 PM CDT) [facility] WBC 8.3 3.8 - 9.9 K/cumm [facility] Hgb 15.3 13.0 - 17.5 g/dL [facility] Hct 46.7 38.9 - 50.3 % [facility] Plt 146(L) 150 - 400 K/cumm [facility] MPV 11.0 9.1 - 12.3 fL [facility] RBC 5.12 4.30 - 5.80 M/cumm [facility] MCV 91.2 81.3 - 96.4 fL [facility] MCH 29.9 27.1 - 33.3 pg [facility] MCHC 32.8 32.3 - 35.7 g/dL [facility] RDW CV 13.9 11.1 - 14.9 % [facility] RDW SD 46.5 35.7 - 48.1 fL [facility] NRBC abs 0.00 0.00 - 0.01 K/cumm [facility] Blood 06/03/2021 8:52 PM CDT 06/03/2021 9:07 PM CDT us Evangelina Frederick MD LAB BLOOD ORDERABLES Final R esult Performing Organization Address City/[facility]/ZIP Co de Phone Number [facility] Department [place] [address] * XR Hand Right 3 or More Views (06/03/2021 4:33 PM CDT) Anatomical Region Laterality Modality Upper Extremities, Hand Right Computed Radiography 06/03/2021 5:51 PM CDT Impressions 06/03/2021 6:12 PM CDT 1. ??Posttraumatic saw injury of the palmar aspect of the third digit with underlying intra-articular fractures involving the distal proximal phalanx and the proximal middle phalanx 2. ??Radiopaque linear fragment in the volar soft tissues of the thumb overlying the distal phalanx that likely represents a retained foreign body. 3. ??Soft tissue injury of the second digit tip. Dictated by: Javad Han M.D. The radiology attending physician has personally reviewed this study, and had reviewed and/or edited this written report and agrees with it. Electronically signed by: Andres Akbar MD Narrative 06/03/2021 6:12 PM CDT EXAMINATION: XR HAND RIGHT 3 OR MORE VIEWS HISTORY: Saw injury COMPARISON: None. Findings: 3 radiographs of the right hand are submitted for interpretation. There is a soft tissue injury involving the volar aspect of the third digit over the proximal interphalangeal joint. There is an underlying intra-articular fracture of the distal aspect of the proximal third phalanx and a intra-articular fracture involving the volar base of the third middle phalanx. There is a radiopaque fragment in the volar soft tissues of the thumb overlying the distal phalanx that may represent a retained foreign body. There is a small soft tissue injury on the tip of the index finger. Procedure Note Andres Akbar MD - 06/03/2021 EXAMINATION: XR HAND RIGHT 3 OR MORE VIEWS HISTORY: Saw injury COMPARISON: None. Findings: 3 radiographs of the right hand are submitted for interpretation. There is a soft tissue injury involving the volar aspect of the third digit over the proximal interphalangeal joint. There is an underlying intra-articular fracture of the distal aspect of the proximal third phalanx and a intra-articular fracture involving the volar base of the third middle phalanx. There is a radiopaque fragment in the volar soft tissues of the thumb overlying the distal phalanx that may represent a retained foreign body. There is a small soft tissue injury on the tip of the index finger. IMPRESSION: 1. Posttraumatic saw injury of the palmar aspect of the third digit with underlying intra-articular fractures involving the distal proximal phalanx and the proximal middle phalanx 2. Radiopaque linear fragment in the volar soft tissues of the thumb overlying the distal phalanx that likely represents a retained foreign body. 3. Soft tissue injury of the second digit tip. Dictated by: Javad Han M.D. The radiology attending physician has personally reviewed this study, and had reviewed and/or edited this written report and agrees with it. Electronically signed by: Andres Akbar MD Evangelina Frederick MD IMG XR PROCEDURES Final Resu lt documented in this encounter Visit Diagnoses Diagnosis Open nondisplaced fracture of proximal phalanx of right middle finger, initial encounter- Primary Laceration of right index finger without foreign body without damage to nail, initial encounter documented in this encounter Administered Medications Inactive Administered Medications - up to 3 most recent administrations Medication Order MAR Action Action Date Dose Rate Site ceFAZolin (ANCEF) 2,000 mg/20 mL in sterile water (premix) 2,000 mg 2,000 mg, intravenous, at 400 mL/hr, Administer over 3 Minutes, Once, On Thu06/03/21 at 2105, For 1 dose, Indications: Prophylaxis, SurgicalIndications:Prophy laxis, Surgical Given 06/03/2021 9:57 PM CDT 2,000 mg 400 mL/hr lidocaine PF (XYLOCAINE) 10 mg/mL (1 %) preservative free injection 100 mg 100 mg (10 mL), infiltration, Once, On Thu06/03/21 at 2124, For 1 dose Given by Other 06/03/2021 9:39 PM CDT 100 mg sodium chloride 0.9% irrigation 1,000 mL 1,000 mL, irrigation, Once, On Thu06/03/21 at 2203, For 1 dose Given by Other 06/03/2021 10:11 PM CDT 1,000 mL sodium chloride 0.9% irrigation 500 mL 500 mL, irrigation, Once, On Thu06/03/21 at 2131, For 1 dose Given by Other 06/03/2021 9:39 PM CDT 500 mL documented in this encounter Active and Recently Administered Medications Times are shown in CDT. Scheduled Medication Order 06/02/2021 06/03/2021 06/04/2021 ceFAZolin (ANCEF) 2,000 mg/20 mL in sterile water (premix) 2,000 mg (COMPLETED) 2,000 mg, intravenous, at 400 mL/hr, Administer over 3 Minutes, Once, On Thu06/03/21 at 2105, For 1 dose, Indications: Prophylaxis, Surgical 2156 (Given - Provider: Kyaw Conn, NILAY) lidocaine PF (XYLOCAINE) 10 mg/mL (1 %) preservative free injection 100 mg (COMPLETED) 100 mg (10 mL), infiltration, Once, On Thu06/03/21 at 2123, For 1 dose 2138 (Given by Other - Provider: Kyaw Conn, NILAY) sodium chloride 0.9% irrigation 1,000 mL (COMPLETED) 1,000 mL, irrigation, Once, On Thu06/03/21 at 2202, For 1 dose 2210 (Given by Other - Provider: Kyaw Conn, NILAY) sodium chloride 0.9% irrigation 500 mL (COMPLETED) 500 mL, irrigation, Once, On Thu06/03/21 at 2130, For 1 dose 2138 (Given by Other - Provider: Kyaw Conn, NILAY) documented in this encounter Orders Nursing Count Last Ordered Date First Orde red Date NURSING COMMUNICATION 06/04/2021 Consult Count Last Ordered Date First Orde red Date IP CONSULT TO ORTHOPEDIC SURGERY 06/03/20 documented in this encounter Care Teams Doll Wig Hackler Relationship Specialty Start Date End Date Johnathon Braga DO [address] [place] [id number] PCP - General 06/03/21 documented as of this encounter
--- OUTSIDE RECORDS SUMMARY | 2024-09-03 07:59 | XMS_ITS | Encounter Summary ---
Author Organization [facility] Address [address] [place] [address] Care Team Providers Care Clip Riveter Name Role Phone Suman Monique DO Primary Care Provider [phone]- [phone] Reason for Visit * Reason Comments other mastoditis Encounter Details Date Type Department Care Team (Late st Contact Info) Description 06/19/2017 1:30 PM CDT Office Visit [facility] [address] [address] [place] [id number] [facility] [address] [place] [address] Dizziness and giddiness (Primary Dx); Concussion syndrome Social History Tobacco Use Types Packs/Day Years Used Date Smoking Tobacco: Never Smokeless Tobacco: Never Alcohol Use Standard Drinks/Week Comments No 0 (1 standard drink = 0.6 oz pur e alcohol) Sex and Gender Information Value Date Recorded Sex Assigned at Not on file 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 Gender Identity Not on file Sexual Orientation Not on file documented as of this encounter Last Filed Vital Signs Vital Sign Reading Time Taken Comments Blood Pressure 124/64 06/19/2017 1:42 PM CDT Pulse - - Temperature - - Respiratory Rate - - Oxygen Saturation - - Inhaled Oxygen Concentration - - Weight 95.3 kg (210 lb) 06/19/2017 1:42 PM CDT Height 180.3 cm (5' 11 ) 06/19/2017 1:42 PM CDT Body Mass Index 29.29 06/19/2017 1:42 PM CDT documented in this encounter Patient Instructions * Patient Instructions* Spring Dsouza - 2017 1:13 PM RELATIONS DIRECTOR Patient Education Vertigo WHAT YOU NEED TO KNOW: What is vertigo? Vertigo is a condition that causes you to feel dizzy. You may think that you or your surroundings are spinning even though you are not moving. What causes vertigo? The inner ear is filled with fluid and contains a nerve and small organs that help you maintain your balance. Vertigo may be caused by diseases or conditions that affect your inner ear or the part of your brain that controls balance. Any of the following can cause vertigo: ?? Small particles that float in the inner ear fluid move out of place and cause irritation ?? M??ni??re disease ?? Swelling of the nerve in your ear caused by an infection ?? Ear trauma that causes an abnormal connection between the inner and middle ear ?? An inner ear infection that causes swelling, eardrum thickening, or abnormal skin growth in the ear ?? A neurologic condition such as multiple sclerosis, migraine, tumor, or stroke ?? Panic and anxiety disorders ?? Alcohol in large amounts What are the signs and symptoms of vertigo? You may feel that you or everything around you is moving or spinning. You may also feel like you are being pulled down or toward your side. Symptoms may occur after you change positions, such as when you turn over in bed or move your head or neck: ?? Nausea or vomiting ?? Trouble with your balance ?? Sensitivity to light or sound ?? Weakness, slurred speech, problems seeing or moving, or increased sleepiness ?? Facial weakness and headache ?? Hearing loss, ear fullness or pain, or hearing ringing sounds ?? Fast, uncontrolled movement of your eyes How is vertigo diagnosed? Your healthcare provider will ask about what triggered your vertigo, whenit started, and how long it lasted. You may also be asked about past diseases, travels, activities,trauma, and medicines. Your healthcare provider may move your head in different directions. This will check to see if a problem in the inner ear is causing your vertigo. You may be asked to do some ex ercises that could make you dizzy. You may also need one or more of the following tests: ?? An electronystagmography (ENG) is done to test for problems you may have with balance or dizziness. Sticky pads with wires are placed on the skin around your eyes. The wires are connected to a machine that records information during your ENG. Warm and cool air or water is put into your ears while your eye movements are recorded. Do not drink alcohol or eat a heavy meal before this test. You may feel dizzy or nauseated after the test. ?? An auditory brainstem response (ABR) test is used to play a series of clicks through headsets onyour ears. A machine measures how your cochlea and nerves react to the clicks. ?? An MRI may be used to check for problems that can cause vertigo. Do not enter the MRI room with anything metal. Metal can cause serious damage. Tell the healthcare provider if you have any metal in or on your body. How is vertigo treated? Treatment will depend on the condition causing the vertigo. Your healthcareprovider may suggest that you rest in bed, avoid certain activities, and change some of the foods you eat. Medicines that may be causing your vertigo may need to be decreased or stopped. You may alsoneed any of the following: ?? Medicines may be given to relieve your vertigo. You may also be given medicine to relieve symptoms caused by vertigo, such as nausea, vomiting, and headache. If a bacterial infection is causing your vertigo, your healthcare provider may give you antibiotics. ?? Surgery may be done to correct certain problems in the ears or brain ?? Therapy may be used to help decrease your dizziness, improve your balance, and prevent injuries. Seek care immediately if: ?? You have any of the following signs of a stroke: ?? Numbness or drooping on one side of your face ?? Weakness in an arm or leg ?? Confusion or difficulty speaking ?? Dizziness, a severe headache, or vision loss ?? You have blood, pus, or fluid coming out of your ears. When should I contact my healthcare provider? ?? Your dizziness does not go away. ?? You have some hearing loss or hear ringing or buzzing in your ears. ?? You have questions about your condition or care. CARE AGREEMENT: You have the right to help plan your care. Learn about your health condition and how it may be treated. Discuss treatment options with your caregivers to decide what care you want to receive. You always have the right to refuse treatment. The above information is an basket hand braider only. It is not intended as medical advice for individual conditions or treatments. Talk to your doctor, nurse or pharmacist before following any medical regimen to see if it is safe and effective for you. ?? 2016 [employer]. Information is for End User's use only and may not be sold, redistributed or otherwise used for commercial purposes. All illustrations and images included in CareNotes?? are the copyrighted property of [employer] or [employer]. TIONS DIRECTOR TIONS DIRECTOR documented in this encounter Progress Notes * Tae Barba MD - 06/19/2017 1:30 PM CDT Subjective/Objective Patient ID: Wily Bahena is a 61 y.o. male. Chief Complaint other (mastoditis) HPI Mr. Bahena is a 61-year-old gentleman who initially had an ear infection on May 06, 2013. [facility] and diagnosis having an ear infection. He was previously evaluated by Dr. Monique, his primary care physician and had an MRI of the brain performed at [facility]. That study showed that there was evidence of a right mastoiditis. It was noted that there was fluid within many mastoid air cells. In the emergency department [place] he was started on ciprofloxacin drops as well as clindamycin 150 mg every 8 hours for 10 days. He was evaluated by an certified credit counselor and treated for a subsequent fungal infection. He continued to have symptoms and therefore had an audiogram done at [facility] onSept2016. 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 Both ears had a sensorineural component above 2000 hertz. Tympanograms for both ear were type A normal patterns. [facility] Thatstudy showed a similar type hearing loss with a high-frequency fall off the ear bone component in the right ear had cleared his tympanograms continued to be type a normal patterns. He was most recently treated by another certified credit counselor and had been on lotrisone for 1 week. He continued to complain of a sense of fullness in his left ear. Of note during this whole process he sustained a head injury, on March 30, while at work. Apparently he was leaning across the steel table and something slipped and gets struck in the back of the head, he is uncertain as other whether he lost consciousness unfortunately did not inform his employerthat he had had a head injury. He comes to the clinic today with an ongoing complaint of dizziness. He feels lightheadedness when he bends over or a moves too quickly. He no longer has any sense of ear pain but he does note he is unable to work at this time because of the lightheadedness and dizziness. Review of Systems Constitutional: Negative for activity change, appetite change, chills and unexpected weight change. HENT: Negative for congestion, dental problem, ear discharge, ear pain, facial swelling, hearing loss, postnasal drip, rhinorrhea, sinus pressure, sore throat, tinnitus, trouble swallowing and voice change. Eyes: Negative for pain, redness and visual disturbance. Respiratory: Negative for apnea, cough, choking, shortness of breath, wheezing and stridor. Cardiovascular: Negative for chest pain, palpitations and leg swelling. Gastrointestinal: Negative for abdominal pain, constipation, diarrhea, nausea and vomiting. Endocrine: Negative for cold intolerance, polydipsia and polyuria. Genitourinary: Negative for difficulty urinating, dysuria and hematuria. Musculoskeletal: Negative for arthralgias, gait problem, joint swelling, neck pain and neck stiffness. Skin: Negative for color change and wound. Allergic/Immunologic: Negative for environmental allergies, food allergies and immunocompromised state. Neurological: Negative for dizziness, tremors, syncope, facial asymmetry, speech difficulty, weakness, light-headedness, numbness and headaches. Psychiatric/Behavioral: Negative for confusion and sleep disturbance. Physical Exam Constitutional: He is oriented to person, place, and time. He appears well- developed and well-nourished. HENT: Head: Normocephalic and atraumatic. Right Ear: Hearing, tympanic membrane, external ear and ear canal normal. Left Ear: Hearing, tympanic membrane, external ear and ear canal normal. Nose: Nose normal. Mouth/Throat: Uvula is midline and oropharynx is clear and moist. Clinical examination at this time shows normal-appearing ears. There is no evidence of a middle eareffusion or an external canal infection. Eyes: Conjunctivae and lids are normal. Neck: Trachea normal, normal range of motion and phonation normal. Neck supple. Pulmonary/Chest: Effort normal. Neurological: He is alert and oriented to person, place, and time. He has normal strength. GCS eye subscore is 4. GCS verbal subscore is 5. GCS motor subscore is 6. Skin: Skin is warm, dry and intact. Psychiatric: He has a normal mood and affect. His speech is normal. Assessment/Plan Diagnoses and all orders for this visit: 1. Dizziness and giddiness (Primary) 2. Concussion syndrome Mr. Bahena'angela ear infection appears to have been resolved. Currently he has difficulty with lightheadedness in dizziness. Most likely this is secondary to the concussion she sustained when he got hit in the back of the head examination does show a small dent in the top of the scope. I suggested that he should see Neurology for further evaluation. documented in this encounter Plan of Treatment Not on file documented as of this encounter Visit Diagnoses Diagnosis Dizziness and giddiness- Primary Concussion syndrome documented in this encounter Historical Medications * This list may reflect changes made after this encounter. geriatric multivitamin-min tablet Take 1 tablet by mouth daily testosterone cypionate (DEPO-TESTOTERON E) 200 mg/mL injection Inject 1 mL (200 mg total) into the muscle as instructed every 21 days 5 06/09/2017 meclizine (ANTIVERT) 25 mg tablet 3 (three) times a day as needed 0 06/09/2017 allopurinol (ZYLOPRIM) 300 mg tablet Take 1 tablet (300 mg total) by mouth multivitamin-Ca- iron-minerals tablet Take by mouth. 4 VYVANSE 50 mg capsule TK 1 C PO QAM 0 06/03/2017 4 sertraline (ZOLOFT) 100 mg tablet Take 1 tablet (100 mg total) by mouth 3 aMILoride-hydroC HLOROthiazide (MODURETIC) 5-50 mg tablet TK 1 T PO QD 4 06/04/2017 4 allopurinol (ZYLOPRIM) 300 mg tablet TK 1 T PO D 3 06/04/2017 3 added in this encounter Care Teams Clip Riveter Relationship Specialty Start Date End Date Suman Monique DO PCP - General 05/10/14 06/02/21 documented as of this encounter
--- OUTSIDE RECORDS SUMMARY | 2024-09-03 07:59 | XMS_ITS | Encounter Summary ---
Author Organization [facility] Address [address] [place] [address] Care Team Providers Care Sales Representative Health Insurance Name Role Phone Johnathon Braga DO Primary Care Provide r Encounter Details Date Type Department Care Team (Latest Contact Info) Description 06/03/2021 4:21 PM CDT - 06/03/2021 8:24 PM CDT Hospital Encounter 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 Electronically signed by: Andres Akbar MD us Evangelina Frederick MD IMG XR PROCEDURES Final Resu lt documented in this encounter Visit Diagnoses Not on filedocumented in this encounter Care Teams Sales Representative Health Insurance Relationship Specialty Start Date End Date Johnathon Braga DO [address] [place] [id number] PCP - General 06/03/21 documented as of this encounter
--- OUTSIDE RECORDS SUMMARY | 2024-09-03 07:59 | XMS_ITS | Encounter Summary ---
Author Organization [facility] Address [address] [place] [address] Phone Care Team Providers Care Liberal Arts Dean Name Role Phone Johnathon Braga Primary Care Provide r Reason for Visit * Reason Onset Date Comments Hand Pain 06/06/2021 Encounter Details Date Type Department Care Team (Late st Contact Info) Description 06/06/2021 Telephone [facility] Orthopaedic Surgery [id number] [place] [address] [address] [place] [id number] Jimbo Conner MD [address] [facility] [place] [address] Hand Pain Social History Tobacco Use Types Packs/Day Years Used Date Smoking Tobacco: Never Smokeless Tobacco: Never Alcohol Use Standard Drinks/Week Comments No 0 (1 standard drink = 0.6 oz pur e alcohol) Sex and Gender Information Value Date Recorded Sex Assigned at Not on file 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 Conner decided that he does want the patient to continue on Keflex until his office visit with Dr. Conner. Patient's made aware and a new prescription for Keflex was Eprescribed to the patient's pharmacy. documented in this encounter Plan of Treatment Not on file documented as of this encounter Visit Diagnoses Not on filedocumented in this encounter Discontinued Medications Medication Sig Discontinue Reason Start Date End Da te cephalexin (KEFLEX) 500 mg capsuleIndications:Skin/ Soft Tissue Infection Take 1 capsule (500 mg total) by mouth 4 (four) times a day for 7 days Reorder 06/03/2021 06/06/2021 documented as of this encounter Care Teams Liberal Arts Dean Relationship Specialty Start Date End Date Johnathon Braga DO [address] [place] [id number] PCP - General 06/03/21 documented as of this encounter
--- OUTSIDE RECORDS SUMMARY | 2024-09-03 08:00 | XMS_ITS | Clinical Summary ---
Author Organization [facility] Address [address] [place] [address] Phone Care Team Providers Care Kitchen Manager Name Role Phone Unavailable Primary Care Provider Unavailabl e Allergies Active Allergy Reactions Criticality Noted Date Comments Carbamazepine Rash,Swelling High 02/13/2020 Medications Medication Sig Dispensed Refills Start Date End Date Status allopurinoL (ZYLOPRIM) 300 mg tablet Take 300 mg by mouth daily. Active propranoloL (INDERAL LA) 60 mg Long Acting 24 hour capsule Take 60 mg by mouth daily. Active donepeziL (ARICEPT) 10 mg tablet Take 10 mg by mouth daily at bedtime. 06/12/2021 Active lamoTRIgine (LaMICtal) 100 mg tablet Take 100 mg by mouth 2 times daily. 05/30/2021 Active atorvastatin (LIPITOR) 10 mg tablet Take 10 mg by mouth daily. 03/28/2021 Active chlorthalidone (HYGROTON) 25 mg tablet Take 25 mg by mouth daily. 03/22/2021 Active tamsulosin (FLOMAX) 0.4 mg capsule Take 0.4 mg by mouth daily. 06/12/2021 Active metFORMIN (GLUCOPHAGE) 850 mg tablet Take 850 mg by mouth daily. 03/05/2023 Active gabapentin (NEURONTIN) 600 mg tablet Take 600 mg by mouth 3 times daily. Active hydrOXYzine HCL (ATARAX) 50 mg tablet Take 50 mg by mouth 3 times daily as needed for Itching. Active meclizine (ANTIVERT) 25 mg tablet Take 25 mg by mouth 3 times daily as needed for Dizziness. Active PARoxetine HCl (PAXIL) 20 mg tabletIndications:dep ression Take 1 Tablet (20 mg) by mouth daily. 30 Tablet 07/09/2023 Active Active Problems Problem Noted Date Diagnosed Date Marital relationship problem 07/07/2023 Paraphilia, unspecified 07/07/2023 Sexual behavior disorder 07/07/2023 Moderate episode of recurrent major depressive d isorder 07/04/2023 Severe recurrent major depre ssion without psychotic features 07/04/2023 Encounters Date Type Department Care Team Description 08/16/2024 External Device Data STL ABSTRACTION Provider, Abstract 06/21/2024 External Device Data STL ABSTRACTION Provider, Abstract 06/21/2024 External Device Data STL ABSTRACTION Provider, Abstract 06/14/2024 External Device Data STL ABSTRACTION Provider, Abstract 06/14/2024 External Device Data STL ABSTRACTION Provider, Abstract from Last 3 Months Family History Medical History Relation Name Comments Cancer Brother Liver Disease Father Cancer Mother Relation Name Status Comments Brother Father Mother Social History Tobacco Use Types Packs/Day Years Used Date Smoking Tobacco: Never Smokeless Tobacco: Never Tobacco Cessation:Counseling Given: No Alcohol Use Standard Drinks/Week Comments Not Currently 0 (1 standard drink = 0.6 oz pur e alcohol) Feeling Safe Answer Date Recorded Are you in a relationship wi th someone who hurts you emotionally and/or physically? No 07/02/2023 Food Insecurity Answer Date Recorded Social/Environmental Concerns No concerns Transportation Needs Answer Date Record ed Social/Environmental Concerns No concerns Housing Stability Answer Date Recorded Social/Environmental Concerns No concerns Utility Needs Answer Date Recorded Social/Environmental Concerns No concerns Sex and Gender Information Value Date Recorded Sex Assigned at Not on file Gender Identity Not on file Sexual Orientation Not on file Last Filed Vital Signs Vital Sign Reading Time Taken Comments Blood Pressure 125/74 07/15/2023 8:28 AM CDT Pulse 76 07/15/2023 8:28 AM CDT Temperature 36.9 ??C (98.4 ??F) 07/15/2023 8:28 AM CD T Respiratory Rate 18 07/15/2023 8:28 AM CDT Oxygen Saturation 97% 07/15/2023 8:28 AM CDT Inhaled Oxygen Concentration - - Weight 98.9 kg (218 lb) 07/15/2023 8:28 AM CDT Height 180.3 cm (5' 11 ) 07/15/2023 8:28 AM CDT Body Mass Index 30.4 07/15/2023 8:28 AM CDT Plan of Treatment Health Maintenance Due Date Last Done Comments COLORECTAL SCREENING 2002 Colorectal Cancer Screening 2002 FIT-DNA Q 3 years 2002 FIT/FOBT Q 1 year 2002 Flex Sig/CT Colonography Q 5 years 2002 ZOSTER VACCINE (1 of 2) 2007 PNEUMOCOCCAL VACCINE 65+ YEARS (1 of 1 - PCV) 09/09/20 INFLUENZA VACCINE (#1) 2024 07/09/2023 Pre-Diabetes and Diabetes Screening 07/02/202607/02 DTAP/TDAP/TD VACCINES (2 - Td or Tdap) 06/04/2031 RSV VACCINE (60+ or ) (1 - 1-dose 75+ series) 2032 Procedures Procedure Name Priority Date/Time Associated Diagnosis Comments HEMOGLOBIN A1C Routine 07/02/2023 8:04 PM CDT from Last 3 Months or Most Recently Relevant to Health Maintenance Results * (ABNORMAL) HEMOGLOBIN A1C (07/02/2023 8:04 PM CDT) HEMOGLOBIN A1C 6.1(H) <=5.6 % 07/03/2023 1:28 PM CDT [facility] EST. AVG GLUCOSE, A1C 128 mg/dL 07/03/2023 1:28 PM CDT [facility] Blood Venipuncture / Unknown 07/02/2023 8:04 PM CDT 07/02/2023 8:30 PM CDT Narrative [facility] - 07/03/2023 1:28 PM CDT HGB A1C INTERPRETATION NORMAL: ? <5.7% PRE-DIABETES: 5.7 - 6.4% DIABETES: ? 6.5% OR GREATER Fletcher Giron MD CHEMISTRY ORDERABLES [facility] CLIA# [id number] [place] [address] from Last 3 Months or Most Recently Relevant to Health Maintenance Advance Directives For more information, please contact: [phone] Documents on File Type Date Recorded Patient Multifocal Button Inspector Expl anation Advance Directive POA 07/29/2023 2:03 PM Advance Directive POA * Full Code (Latest Code Status on File) Date Activated Date Inactivated Comments 07/03/2023 12:53 PM 07/08/2023 5:30 PM
--- OUTSIDE RECORDS SUMMARY | 2024-09-03 08:00 | XMS_ITS | Patient Health Record ---
Author Organization [facility] Address [address] [place] [address] Care Team Providers Care Well Logging Operator Mud Analysis Name Role Phone Stephan Garza MD Primary Care Provider Stephan Garza Unavailable Unavailable ALLERGIES Allergen (clinical drug ingredient) Drug/Non Drug Allergy documented on EMR Reaction Allergy Type Onset Date Status carbamazepine Carbamazepine Unknown Drug Allergy Active REASON FOR REFERRAL No Information MEDICATIONS Medication SIG (Take, Route, Fr equency, Duration) Notes Start Date End Date Status Chlorthalidone Activ e Fish Oil Active Allopurinol Active Nuedexta Active Donepezil HCl Active Modafinil Active Venlafaxine HCl Acti ve Atorvastatin Calcium Active Vitamin D3 Active Meclizine HCl Active hydrOXYzine HCl Acti ve lamoTRIgine ER Activ e Centrum Silver Activ e Testosterone Active IMMUNIZATIONS Vaccine Route Administration Date Status Comme nts Influenza Unknown 03/15/2021 Refused pneumoccocal Unknown 03/15/2021 Refused SOCIAL HISTORY Tobacco Use: Social History Observation Description Date Details (start date - stop date) Never Smoker NA - NA Sex Assigned At : Social History Observation Description Sex Assigned At Unknown Tobacco Use: Question Answer Notes Patient is a: nonsmoker Alcohol screening: Question Answer Notes Did you have a drink containing alcohol in the p ast year? No Points 0 Interpretation Negative PROBLEMS Problem Type ICD Code Onset Dates Problem Status W/U Status Risk SNOMED Code Notes Problem Cubital tunnel syndrome on left (G56.22) 03/14/2017 Active confirmed [id number] PLAN OF TREATMENT No Information Insurance Providers Payer Name Payer Address Payer Phone Subscriber Number Group Number Insured Name Patient Relationship to Insured Coverage Start Date Coverage End Date Medicare [address] [place] [phone] [id number] Wily Bahena Self - patient is the insured [employer] [address] [address] [place] [phone] [id number] Wily Bahena Self - patient is the insured MEDICAL (GENERAL) HISTORY Medical History History ICD Code hypertension hyperlipidemia kidney stones Gout depression Post concussion syndrome Surgical History Surgery Date(Month/Year) cervical hernia repair
--- OUTSIDE RECORDS SUMMARY | 2024-09-03 08:00 | XMS_ITS | Encounter Summary ---
Author Organization [facility] Address [address] [place] [address] Care Team Providers Care Technology Auditor Name Role Phone Unavailable Primary Care Provider Unavailabl e Encounter Details Date Type Department Care Team (Late st Contact Info) Description 05/17/2024 External Device Data STL ABSTRACTION Provider, Abstract NO ADDRESS ON FILE Social History Tobacco Use Types Packs/Day Years Used Date Smoking Tobacco: Never Smokeless Tobacco: Never Alcohol Use Standard Drinks/Week Comments Not Currently [...] Assessment Noted Time PHQ-9 Depression Total Score: 1 09/08/20 23 1:[address] OILING TRUCK DRIVER documented as of this encounter
--- OUTSIDE RECORDS SUMMARY | 2024-09-03 08:00 | XMS_ITS | Encounter Summary ---
Author Organization [facility] Address [address] [place] [address] Care Team Providers Care Refueler Name Role Phone Unavailable Primary Care Provider Unavailabl e Encounter Details Date Type Department Care Team (Late st Contact Info) Description 08/16/2024 External Device Data STL ABSTRACTION [...] Total Score: 1 09/08/20 23 1:00 PM RAILROAD CRANE OPERATOR documented as of this encounter
--- OUTSIDE RECORDS SUMMARY | 2024-09-03 08:00 | XMS_ITS | Encounter Summary ---
Author Organization [facility] Address [address] [place] [address] Care Team Providers Care Principal Hardware Architect Name Role Phone Unavailable Primary Care Provider [...] Total Score: 1 09/08/20 23 1:00 PM ENTERTAINMENT LAWYER documented as of this encounter
--- OUTSIDE RECORDS SUMMARY | 2024-09-03 08:00 | XMS_ITS | Encounter Summary ---
Author Organization [facility] Address [address] [place] [address] Care Team Providers Care Motorcycle Engine Assembler Name Role Phone Unavailable Primary Care Provider Unavailabl e Encounter Details Date Type Department Care Team (Late st Contact Info) Description 05/24/2024 External Device Data STL ABSTRACTION Provider, Abstract [...] Total Score: 1 09/08/20 23 1:00 PM MACHINE STONE POLISHER APPRENTICE documented as of this encounter
--- OUTSIDE RECORDS SUMMARY | 2024-09-03 08:00 | XMS_ITS | Encounter Summary ---
Author Organization [facility] Address [address] [place] [address] Care Team Providers Care Object Oriented Programmer Name Role Phone Unavailable Primary Care Provider Unavailabl e Encounter Details Date Type Department Care Team (Late st Contact Info) Description 06/14/2024 External Device Data STL ABSTRACTION Provider, [...] Total Score: 1 09/08/20 23 1:00 PM OFFSET PRESS OPERATOR HELPER documented as of this encounter
--- OUTSIDE RECORDS SUMMARY | 2024-09-03 08:00 | XMS_ITS | Encounter Summary ---
Author Organization [facility] Address [address] [place] [address] Care Team Providers Care Poster Name Role Phone Unavailable Primary Care Provider Unavailabl e Encounter Details Date Type Department Care Team (Late st Contact Info) Description 05/04/2024 External Device Data STL ABSTRACTION Provider, Abstract [...] Total Score: 1 09/08/20 23 1:00 PM HAND FLATWORK FINISHER documented as of this encounter
--- OUTSIDE RECORDS SUMMARY | 2024-09-03 08:00 | XMS_ITS | Encounter Summary ---
Author Organization [facility] Address [address] [place] [address] Care Team Providers Care Sanding Machine Tender Automatic Name Role Phone Unavailable Primary Care Provider [...] Total Score: 1 09/08/20 23 1:00 PM CLINICAL RESOURCE NURSE documented as of this encounter
--- OUTSIDE RECORDS SUMMARY | 2024-09-03 08:00 | XMS_ITS | Encounter Summary ---
Author Organization [facility] Address [address] [place] [address] Care Team Providers Care Kinesiology Professor Name Role Phone Unavailable Primary Care Provider Unavailabl e Encounter Details Date Type Department Care Team (Late st Contact Info) Description 06/21/2024 External Device Data STL ABSTRACTION Provider, [...] Total Score: 1 09/08/20 23 1:00 PM LEAD PRESS OPERATOR documented as of this encounter
--- OUTSIDE RECORDS SUMMARY | 2024-09-03 08:00 | XMS_ITS | Encounter Summary ---
Author Organization [id number] Address [address] [place] [address] Care Team Providers Care Incident Response Analyst Name Role Phone Unavailable Primary Care Provider [...] Total Score: 1 09/08/20 23 1:00 PM ASSEMBLER FILTERS documented as of this encounter
--- OUTSIDE RECORDS SUMMARY | 2024-09-03 08:01 | XMS_ITS | Encounter Summary ---
Author Organization [facility] Address [address] [place] [address] Care Team Providers Care Smoke Inspector Name Role Phone Unavailable Primary Care Provider [...] Total Score: 1 09/08/20 23 1:00 PM COMMERCIAL MANAGER documented as of this encounter
--- OUTSIDE RECORDS SUMMARY | 2024-09-03 08:01 | XMS_ITS | Encounter Summary ---
Author Organization [facility] Address [address] [place] [address] Care Team Providers Care Latex Caster Name Role Phone Unavailable Primary Care Provider Unavailabl e Reason for Visit * Auth/Cert (Routine) Specialty Diagnoses / Procedures Referred By Jonah t Referred To Contact Behavioral Health [facility] [address] [place] [address] Referral ID Status Reason Start Date Expiration Date Visits Re quested Visits Authorized [id number] 1 1 Encounter Details Date Type Department Care Team (Latest Contact Info) Description 08/10/2023 9:00 AM CHAMBER WORKER - 08/10/2023 11:59 PM [facility] Hospital Encounter [facility] Outpatient Behavioral Health Program Services [id number] [place] [address] Marsha Mcgowan, DATA ENTRY TECHNICIAN [address] [place] [address] Discharge Disposition: Home or Self Care Social [...] Sig Dispensed Refills Start Date End Date PARoxetine HCl (PAXIL) 20 mg tabletIndications:depress ion Take 1 Tablet (20 mg) by mouth daily. 30 Tablet 07/09/2023 allopurinoL (ZYLOPRIM) 300 mg tablet Take 300 mg by mouth daily. propranoloL (INDERAL LA) 60 mg Long Acting 24 hour capsule Take 60 mg by mouth daily. donepeziL (ARICEPT) 10 mg tablet Take 10 mg by mouth daily at bedtime. 06/12/2021 lamoTRIgine (LaMICtal) 100 mg tablet Take 100 mg by mouth 2 times daily. 05/30/2021 atorvastatin (LIPITOR) 10 mg tablet Take 10 mg by mouth daily. 03/28/2021 chlorthalidone (HYGROTON) 25 mg tablet Take 25 mg by mouth daily. 03/22/2021 tamsulosin (FLOMAX) 0.4 mg capsule Take 0.4 mg by mouth daily. 06/12/2021 metFORMIN (GLUCOPHAGE) 850 mg tablet Take 850 mg by mouth daily. 03/05/2023 gabapentin (NEURONTIN) 600 mg tablet Take 600 mg by mouth 3 times daily. hydrOXYzine HCL (ATARAX) 50 mg tablet Take 50 mg by mouth 3 times daily as needed for Itching. meclizine (ANTIVERT) 25 mg tablet Take 25 mg by mouth 3 times daily as needed for Dizziness. documented as of this encounter Progress Notes * Dolores Foreman, CLIENT SERVER PROGRAMMER - 08/10/2023 9:00 AM CST [facility] Group Note Date: 08/10/2023 Time of Session: Start Time: 9:00 End Time: 10:00 Number of group members present in group: 11 Process Group Topic: illness management Observation/Assessment: At this session, Wily's cognition is noted to be Alert Wily's appearance is noted to be appropriately dressed for weather/season and well-groomed Wily's eye contact is noted to be Good Wily's speech is noted to be clear and normal rate and rhythm Wily's thoughts are noted to be organized Wily's mood is noted to be calm Wily's affect is noted to be congruent with mood Wily's insight and judgment are noted to be good Wily presents with the current symptoms of anger or anger outbursts, anxiety, and depression Wily does not report suicidal thoughts or plans and does not report homicidal thoughts and plans Wily's level of group participation for this session was active/cooperative, attentive, and engaged Wily reported the following information: level of pain as 8/10 level of depression as 7/10 level of anger as 6/10 level of anxiety as 6/10 5-6 hours of sleep in the last 24 hours and Does not report feeling rested upon waking. Wily Reports medication compliance in the last 24 hours. Regarding substance use in the past 24 hours, Wily denies substance use or misuse. Interventions: Clinician rehearsed goal setting, rehearsed positive self-talk, use of motivational interviewing skills, use of restatement, use of summarizing, validated experience , and validated feelings Patient Response: Wily reports using the following healthy coping skills to manage mental health symptoms in the last 24 hours: distraction skills, exercise, and relaxation techniques. Wily identified the following treatment goal/plan for today: to try to stay focused on not doing what got me in trouble to begin with. Wily shared he had an okay Thanksgiving but his daughter did not show up as he thought she might. He discussed attempting to avoid a trigger but then completing the activity due to wanting to appease another person. He reported it did not cause the anger that it did previously. Time of Session: Start Time: 10:05 End Time: 11:05 Number of group members present in group: 10 Process Group Topic: values clarification Observation/Assessment: At this session, Wily's cognition is noted to be Alert Wily's appearance is noted to be appropriately dressed for weather/season and well-groomed Wily's eye contact is noted to be Good Wily's speech is noted to be clear and normal rate and rhythm Wily's thoughts are noted to be organized Wily's mood is noted to be calm Wily's affect is noted to be congruent with mood Wily's insight and judgment are noted to be good Wily presents with the current symptoms of anger or anger outbursts, anxiety, and depression Wily does not report suicidal thoughts or plans and does not report homicidal thoughts and plans Wily's level of group participation for this session was active/cooperative, attentive, and engaged Interventions: Clinician facilitated identity exploration exercise to help develop a strong sense of self to give meaning/direction to life, facilitated values clarification worksheet to understand personal values to help recognize areas of life that may need more attention, led discussion on topic Patient Response: Wily responded to group topic by completing the worksheet. He identified some ofhis values and chose a few that were tops on his list. Wily joined in the discussion on how some of the values could be combined or are closely related to each other. Time of Session: Start Time: 11:10 End Time: 12:10 Number of group members present in group: 10 Process Group Topic: exploring values Observation/Assessment: At this session, Wily's cognition is noted to be Alert Wily's appearance is noted to be appropriately dressed for weather/season and well-groomed Wily's eye contact is noted to be Good Wily's speech is noted to be clear and normal rate and rhythm Wily's thoughts are noted to be organized Wily's mood is noted to be calm Wily's affect is noted to be congruent with mood Wily's insight and judgment are noted to be good Wily presents with the current symptoms of anger or anger outbursts, anxiety, and depression Wily does not report suicidal thoughts or plans and does not report homicidal thoughts and plans Wily's level of group participation for this session was active/cooperative, attentive, and engaged Interventions: Clinician facilitated exploration of personal values to help determine priorities inlife which influence decision-making, facilitated exploration of how parents, society, friends, etcinfluence our priorities in positive and negative ways, aided in exploring if values are aligning with current circumstances in life Patient Response: Wily responded to group topic by completing the worksheet and identifying some of the values he was exposed to by his parents and determining if those are part of his personal values today. He stated his mom's values were love, respect and adventure and his dad's were honesty, fairness, and respect. He shared an example of his dad's fairness in how he hired people to work for [employer]. Wily identified admiring this value and wanting to incorporate it into his life. BER WORKER documented in this encounter Miscellaneous Notes * Treatment Plan - Suman Akhtar LPC - 08/10/2023 9:00 AM CST Treatment Team Meeting Note: An Interdisciplinary Treatment Team meeting was held on 08/12/2023 for Wily Bahena . The treatment team discussed the treatment plan, progress being made, any current issues and pending discharge plan and date. BER WORKER documented in this encounter Plan of Treatment Not on file documented as of this encounter Visit Diagnoses Not on filedocumented in this encounter Additional Health Concerns Assessment Noted Time PHQ-9 Depression Total Score: 2 08/05/20 23 1:00 PM CHAMBER WORKER documented as of this encounter
--- OUTSIDE RECORDS SUMMARY | 2024-09-03 08:01 | XMS_ITS | Encounter Summary ---
Author Organization [facility] Address [address] [place] [address] Care Team Providers Care Color Blender Name Role Phone Unavailable Primary Care Provider Unavailabl e Encounter Details Date Type Department Care Team (Late st Contact Info) Description 10/07/2023 External Device Data STL ABSTRACTION Provider, Abstract [...] Total Score: 1 09/08/20 23 1:00 PM MACHINIST SUPERVISOR OUTSIDE documented as of this encounter
--- OUTSIDE RECORDS SUMMARY | 2024-09-03 08:01 | XMS_ITS | Encounter Summary ---
Author Organization [facility] Address [address] [place] [address] Care Team Providers Care Abstract Manager Name Role Phone Unavailable Primary Care [...] Total Score: 1 09/08/20 23 1:00 PM GENERAL HANDLING SUPERVISOR documented as of this encounter
--- OUTSIDE RECORDS SUMMARY | 2024-09-03 08:01 | XMS_ITS | Encounter Summary ---
Author Organization [facility] Address [address] [place] [address] Care Team Providers Care Sr. Manager Corporate Communications Name Role Phone Unavailable Primary Care Provider Unavailabl e Reason for Visit * Reason Onset Date Comments Follow Up 08/04/2023 Encounter Details Date Type Department Care Team (Late st Contact Info) Description 08/04/2023 Telephone [facility] Outpatient Behavioral Health Program Services [id number] [place] [address] Alison Ibrahim, DAY CARE SUPERVISOR Follow Up Social History Tobacco Use Types [...] Noted Time PHQ-9 Depression Total Score: 2 07/15/20 23 8:32 AM CDT documented as of this encounter
--- OUTSIDE RECORDS SUMMARY | 2024-09-03 08:01 | XMS_ITS | Encounter Summary ---
Author Organization [facility] Address [address] [place] [address] Care Team Providers Care Pattern Repair Person Name Role Phone Unavailable Primary Care Provider Unavailabl e Reason for Visit * Auth/Cert (Routine) Specialty Diagnoses / Procedures Referred By Jonah t Referred To Contact Behavioral Health [facility] [place] [address] [place] [address] Referral ID Status Reason Start Date Expiration Date Visits Re quested Visits Authorized [id number] 1 1 Encounter Details Date Type Department Care Team (Latest Contact Info) Description 08/26/2023 9:00 AM VOCATIONAL EXAMINER - 08/26/2023 11:59 PM [facility] Hospital Encounter [facility] Outpatient Behavioral Health Program Services [id number] [address] [place] [address] Marsha Mcgowan, FERMENTER OPERATOR [address] [place] [address] Discharge Disposition: Home or Self [...] as of this encounter Progress Notes * Suman Akhtar, CUTLET MAKER PORK - 08/26/2023 9:00 AM CST [facility] [place] Group Note Date: 08/26/2023 Time of Session: Start Time: 9:00 End Time: 10:00 Number of group members present in group: 5 Process Group Topic: goal setting and illness management Observation/Assessment: At this session, Wily's [...] the following information: level of pain as 6/10 level of depression as 4/10 level of anger as 6/10 level of anxiety as 4/10 5-6 hours of sleep in the last 24 hours and Does not report feeling rested upon waking. Wily Reports medication compliance in the last 24 hours. Regarding substance use in the past 24 hours, Wily denies substance use or misuse. Interventions: Clinician provided reframing, provided validation, rehearsed goal setting, and use of motivational interviewing skills Patient Response: Wily reports using the following healthy coping skills to manage mental health symptoms in the last 24 hours: changed environment/surroundings, distraction skills, exercise, and relaxation techniques. Wily identified the following treatment goal/plan for today To keep on improving. Pt stated thathe gets his CPAP next week.If it doesn't feel comfortable, he is going to send it back. Also, he isgetting a new neurologist soon which he needs to help with his dementia. He will take his 3rd dementia assessment in October. Time of Session: Start Time: 10:05 End Time: 11:05 Number of group members present in group: 5 Process Group Topic: identifying healthy vs unhealthy communication patterns Observation/Assessment: At this session, Wily's cognition is [...] Wily presents with the current symptoms of no new symptoms reported Wily does not report suicidal thoughts or plans and does not report homicidal thoughts and plans Wily's level of group participation for this session was active/cooperative, attentive, and engaged Interventions: Clinician rehearsed use of healthy communication skills and use of motivational interviewing skills Patient Response: Wily responded to group topic by taking part in the group exercise to learn about communication blocks and communication facilitators. Pt also learned how to be assertive with his communication rather than aggressive or passive. Time of Session: Start Time: 11:10 End Time: 12:10 Number of group members present in group: 5 Process Group Topic: identifying healthy vs unhealthy communication patterns Observation/Assessment: At this session, Thors cognition is noted to be Alert Wily's [...] Wily presents with the current symptoms of no new symptoms reported Wily does not report suicidal thoughts or plans and does not report homicidal thoughts and plans Wily's level of group participation for this session was active/cooperative, attentive, and engaged Interventions: Clinician provided validation, rehearsed use of healthy communication skills, and use of motivational interviewing skills Patient Response: Wily responded to group topic by learning and practicing healthy communication techniques like I statements, active listening and good body language and tone. TIONAL EXAMINER documented in this encounter Miscellaneous Notes * Treatment Plan - Suman Akhtar LPC - 08/26/2023 9:00 AM CST Treatment Team Meeting Note: An Interdisciplinary Treatment Team meeting was held on 08/26/2023 for Wily Bahena . The treatment team discussed the treatment plan, progress being made, any current issues and pending discharge plan and date. TIONAL EXAMINER Associated attestation - Marsha Mcgowan APRN - 10/04/2023 2:04 PM VOCATIONAL EXAMINER Discussed and agree with plan. AMY Ambrosio documented in this encounter Plan of Treatment Not on file documented as of this encounter Visit Diagnoses Not on filedocumented in this encounter Additional Health Concerns Assessment Noted Time PHQ-9 Depression Total Score: 2 08/24/20 23 4:00 PM VOCATIONAL EXAMINER documented as of this encounter
--- OUTSIDE RECORDS SUMMARY | 2024-09-03 08:01 | XMS_ITS | Encounter Summary ---
Author Organization [facility] Address [address] [place] [address] Care Team Providers Care Welding Robot Operator Name Role Phone Unavailable Primary Care Provider Unavailabl e Reason for Visit * Auth/Cert (Routine) Specialty Diagnoses / Procedures Referred By Jonah t Referred To Contact Behavioral Health [facility] Op [facility]al [facility] [place] [address] Referral ID Status Reason Start Date Expiration Date Visits Re quested Visits Authorized [id number] 1 1 Encounter Details Date Type Department Care Team (Latest Contact Info) Description 08/24/2023 9:00 AM ESCROW AGENT - 08/24/2023 11:59 PM [facility] Hospital Encounter [facility] Outpatient Behavioral Health Program Services [phone] [place] [address] Marsha Mcgowan, WASTEWATER TREATMENT SUPERVISOR [address] [place] [address] Moderate episode of recurrent major depressive disorder Discharge Disposition: Home or Self Care Social [...] as of this encounter Progress Notes * Katherine Small MD - 08/24/2023 9:00 AM CST [facility] PROGRESS NOTE This note was generated with [employer] voice recognition software and may contain unintended strategy consultant errors. PATIENT: Wily Bahena AGE: 67 y.o. CSN: [id number] Date of : 1955 Service date: 08/24/2023 ASSESSMENT DIAGNOSIS: <principal problem not specified> Active Problems: Moderate episode of recurrent major depressive disorder Additional Problems: Past Medical History: Diagnosis Date Dementia Depression Diabetes mellitus Essential hypertension TBI (traumatic brain injury) SUBJECTIVE Chief Complaint: I am doing okay. Interval History of Present Illness: The medical record reflects the history of present illness as obtained by myself in discussion withthe patient. I reviewed the chart, discussed patient???s care with the treatment team and interviewed the patient. The patient currently endorses or displays the following: He is calm and cooperative. He reported a fair mood, mild a stressful feeling because his just had pacemaker installed a few days ago. He was also found to have cataract, he will have the surgery in the future. Otherwise he has been doing well. No hopelessness, no suicidal homicidal ideation. No psychosis or mary. Fair sleep and appetite. Self Report with 10 as the worst: Anxiety: 2/10 Depression: 110 Anger/Irritability: 0/10 Adherence to medication: yes Side effects noted or reported: no Staff report: Behavioral disturbance noted or reported: no Participation in therapeutic activities: Patient has been participating in the intensive all program educational /therapeutic groups actively. Patient was encouraged to go to groups for learning coping skills and getting a better understanding/insight about the mental conditions. Emotional support was given. Family & Social History: [x] No changes from admission [] Changes/additions include: Current Medications: Current Outpatient Medications on File Prior to Encounter Medication Sig Dispense Refill PARoxetine HCl (PAXIL) 20 mg tablet Take 1 Tablet (20 mg) by mouth daily. 30 Tablet 0 allopurinoL (ZYLOPRIM) 300 mg tablet Take 300 mg by mouth daily. propranoloL (INDERAL LA) 60 mg Long Acting 24 hour capsule Take 60 mg by mouth daily. donepeziL (ARICEPT) 10 mg tablet Take 10 mg by mouth daily at bedtime. lamoTRIgine (LaMICtal) 100 mg tablet Take 100 mg by mouth 2 times daily. atorvastatin (LIPITOR) 10 mg tablet Take 10 mg by mouth daily. chlorthalidone (HYGROTON) 25 mg tablet Take 25 mg by mouth daily. tamsulosin (FLOMAX) 0.4 mg capsule Take 0.4 mg by mouth daily. metFORMIN (GLUCOPHAGE) 850 mg tablet Take 850 mg by mouth daily. gabapentin (NEURONTIN) 600 mg tablet Take 600 mg by mouth 3 times daily. hydrOXYzine HCL (ATARAX) 50 mg tablet Take 50 mg by mouth 3 times daily as needed for Itching. meclizine (ANTIVERT) 25 mg tablet Take 25 mg by mouth 3 times daily as needed for Dizziness. No current facility-administered medications on file prior to encounter. Review of Systems: Constitutional: No fever or chills HENT: No congestion, sore throat or rhinorrhea Eyes: No visual disturbance Respiratory: No cough or shortness of breath Cardiovascular: No chest pain or palpitations Gastrointestinal: No nausea, vomiting, abdominal pain or diarrhea Genitourinary: No dysuria or hematuria Musculoskeletal: No myalgias or back pain Skin: No rash or wound Neurological: No weakness or tremors OBJECTIVE Vital Signs: There were no vitals taken for this visit. Mental Status Exam: General Appearance: appearing stated age, fair hygiene and grooming Orientation: awake and alert, oriented to person, place and time Behavior: cooperative Psychomotor: no agitation or retardation Attitude: cooperative Eye Contact: fair Speech: normal rate/rhythm/volume/prosody Language: fluent, free of aphasia and paraphasic errors Thought Process: linear and goal directed Thought Content: denied thoughts of self-harm or violence toward others; no delusions verbalized Perception: denied auditory or visual hallucinations; no obvious reaction to internal stimuli Associations: intact Mood: Calm. No significant depression , mild anxiety because of family issue and medical condition. Affect: mood congruent. In fair range. Insight: fair Judgment: fair Attention/Concentration: focused and able to attend to conversation Memory: grossly intact Fund of Knowledge: average Muscle strength and tone: normal Gait: normal Labs: I have reviewed all labs; pertinent results are noted below. No results found for this or any previous visit (from the past 24 hour(s)). Plan Medication plan: Continue current psych medications. Supportive therapy, psychoeducation and medication education were provided. Alternative treatment options, risks and benefits were reviewed. Patient agreed with the plan. Further adjustment will be decided based on progress and consent. Safety plan was reviewed; patient???s safety will remain monitored In the IOP setting. . Coordination with: [x] Nursing [x] Care management/Social Work [] Ambulatory Physician [] Family/Guardian Disposition planning: Continue IOP. Patient will return home after this IOP session. Status - This patient requires continued IOP service because: Patient manifests major disability insocial, occupational, interpersonal or educational functioning that can only be addressed in intensive outpatient program setting. Time spent: 31 Minutes. This includes time with patient , family , nursing staff, social service, consulting physician, treatment team, counseling&/or activities to coordinate the care of the patient . Greater than 50 % of patient time and floor time spent providing counseling and/or coordination of care. Duration of face to face visit w/patient: 19 minutes. OW AGENT * Suman Akhtar, EVENT PROMOTIONS COORDINATOR - 08/24/2023 9:00 AM CST [facility] Group Note Date: 08/24/2023 Time of Session: Start Time: 9:00 End Time: 10:00 Number of group members present in group: 6 Process Group Topic: goal setting and illness [...] pain as 8/10 level of depression as 6/10 level of anger as 6/10 level of anxiety as 9/10 5-6 hours of sleep in the last 24 hours and Does not report feeling rested upon waking. Wily Reports medication compliance in the last 24 hours. Regarding substance use in the past 24 hours, Wily denies substance use or misuse. Interventions: Clinician provided validation, rehearsed goal setting, rehearsed use of healthy communication skills, and use of motivational interviewing skills Patient Response: Wily reports using the following healthy coping skills to manage mental health symptoms in the last 24 hours: changed environment/surroundings, distraction skills, exercise, and relaxation techniques. Wily identified the following treatment goal/plan for today stay on task and stay productive. Pt said he had a really good weekend and just took it easy. Pt continues to take care of his afterher surgery . Time of Session: Start Time: 10:05 End Time: 11:05 Number of group members present in group: 7 Process Group Topic: boundaries Observation/Assessment: At this session, Wily's cognition is [...] active/cooperative, attentive, and engaged Interventions: Clinician provided education and feedback on setting and maintaining healthy boundaries, rehearsed limit setting, rehearsed use of healthy communication skills, and use of motivationalinterviewing skills Patient Response: Wily responded to group topic by learning the various kinds of boundaries and how to improve them inspite of other people maybe not liking the changes. Time of Session: Start Time: 11:10 End Time: 12:10 Number of group members present in group: 7 Process Group Topic: boundaries Observation/Assessment: At this session, Wily's cognition is [...] was active/cooperative, attentive, and engaged Interventions: Clinician demonstrated and modeled setting healthy boundaries, rehearsed use of healthy communication skills, and use of motivational interviewing skills Patient Response: Wily responded to group topic by talking through setting healthy boundaries withhis . Pt stated that she likes to be in control and he doesn't think she will respond well to his boundaries. Pt stated that he needs to say no more often. OW AGENT * Suman Akhtar LPC - 08/24/2023 9:00 AM CST [facility] Safety Plan Creation Date: 07/08/23 Last Update Date: 07/15/23 Step 1: Warning signs: Warning Signs increase in sleep some confusion/distraction/problems focusing depression thoughts and become angry when get frustrated (difficulty in being able to discuss what the thoughts are) yell and curse when angry and frustrated Step 2: Internal coping strategies - Things I can do to take my mind off my problems without contacting another person: Strategies loving my dog spooky time with my grand daughter singing reading talk on the phone at times watching tv Step 3: People and social settings that provide distraction: Name Contact Information Nayana sy [phone] neighbors when outside mendez Mae [phone] mendez Estrada [phone] Places home take a walk Step 4: People whom I can ask for help during a crisis: Name Contact Information my , Nayana [phone] Berta Mccain, daughter [phone] Step 5: Professionals or agencies I can contact during a crisis: Clinician/Agency Name Phone Emergency Contact Dr. Sinan Last [phone] Joe Godfrey, Counselor, [facility] [phone] Dr. Johnathon Braga [phone] Local Emergency Department Emergency Department Address Emergency Department Phone [address] [facility] [phone] Suicide Prevention Lifeline Phone: Call or Text 044 Crisis Text Line: Text HOME to 523301 Step 6: Making the environment safer (plan for lethal means safety): Per , firearms are in the home but are locked in a safe. reports that she has the aguayo to the safe. She reported that firearms all have trigger locks, and she has the keys to those as well. She reports that the ammo is in a separate location from the firearms. Per , she monitors all of his medications. She reports that all medications, including OTC medications are put up and monitored by her. Per , she has no concerns about sharp objects being an issue regarding lethal means. Discussed limiting or monitoring other possible lethal means such as ropes, ties, belts, etc. And household chemicals. She reported that she has also removed his car keys. Discussion included behaviors to monitor for as well. Lisa spoke with on 07/15/23. Keep in contact with people who I care about. Optional: What is most important to me and worth living for?: Family Harry-Alex Safety Plan. Jessica Mcdonald and Ru Johnson. Used with permission of the authors. OW AGENT documented in this encounter Miscellaneous Notes * Treatment Plan - Suman Akhtar LPC - 08/24/2023 9:00 AM CST IOP Treatment Plan Review Start/ End times: 335/355 This Treatment Plan Review was completed with collaboration from the treatment team, information from Wily (and disabilities caregiver if applicable), and review of chart documentation since the initial treatment plan or the last review. Wily and, if applicable, guardian or disabilities caregiver have been given theopportunity to ask questions and make suggestions. Wily and, if applicable, guardian and disabilities caregiver express agreement with the information of this treatment plan review and consent to ongoing care. Wily presents as: alert, oriented to person, place, and time Medications: compliant, tolerating Concerns with IOP group attendance and/or active engagement with treatment: No Changes in situation with working or school: no change Wily reports being better as the result of treatment. Wilycontinues to present the following symptoms: anger, anxiety and depression Wily reports improvement in the following symptoms: anxiety, anger depression Wily reportes concerns with pain: chronic pain but no concerns The following is a complete review of Wily's current treatment plan objectives, progress and challenges: Wily will verbalize 2-3 triggers for his impulsivity and verbalize 3-4 coping mechanisms to managehis impulses in healthy ways over the next 2-3 weeks. Wily is using distraction , especially reading as a way to control impulsivity. Wily will list and verbalize 2-3 friends/family members he can call and/or visit as support and accountability when feeling impulsive and as maintenance for accountability and building structure in his life. Wily talks with his and is working on improving his communication with her Wily will identify and verbalize and participate in 4-5 activities that he enjoys in order to redirect his thinking towards those activities and away from his impulses. Wily has tasks around the house but still working on outside activities. Wily will implement 2-3 relaxation and diversion activities such as meditation, mindfulness and hobbies to decrease his level of depression.? Use twice a day for 10-20 minutes and report a decrease in depressive symptoms in the next 2 weeks. Wily uses meditation and mindfulness as a way to decrease his depression. Wily will report in 2 weeks a reduction in depression and improved sense of restfulness in after sleeping by implementing a regular exercise regimen. Walk 3x per week for 15 minutes, mindfully, observing with his 5 senses as a way of implementing mindfulness while exercising. Wily will express 3-4 feelings of hurt, disappointment, shame, and anger associated with life experiences and verbally understand the relationship between depressed mood and repression of feelings. Pt will implement the use of 2-3 coping mechanisms such as The Anger Iceberg and journaling as a wayto recognize and reduce these negative feelings. Wily is using pausing as a way to manage his anger. He is taking a step back and a breath to slow his anger reaction. New treatment plan objectives and therapist interventions: No new objectives Assessment Updates: PHQ9: 8 GAD7: 10 Discharge Planning: Tentative date for discharge: 09/10/23 Requesting additional sessions due to: no additional sessions need to be added but pt does not feelready for discharge. Upcoming provider appointments: Psychiatrist: Sinan Last [facility] [address] [facility] [address], [place] [address] Therapist: Joe Godfrey [facility] [address] [place] [address] Primary Care Physician: Johnathon Braga with [facility] Last visit/physical: 07/20/23 Other: none at this time Referrals provided: as needed Safety plan reviewed and updated. Updated Safety plan included below, and copy provided to Wily. Andrew Safety Plan Creation Date: 07/08/23 Last Update Date: 07/15/23 Step 1: Warning signs: Warning Signs increase in sleep some confusion/distraction/problems focusing depression thoughts and become angry when get frustrated (difficulty in being able to discuss what the thoughts are) yell and curse when angry and frustrated Step 2: Internal coping strategies - Things I can do to take my mind off my problems without contacting another person: Strategies loving my dog spooky time with my grand daughter singing reading talk on the phone at times watching tv Step 3: People and social settings that provide distraction: Name Contact Information Nayana [phone] neighbors when outside mendez Mae [phone] mendez Estrada [phone] Places home take a walk Step 4: People whom I can ask for help during a crisis: Name Contact Information my , Nayana [phone] Berta Mccain, daughter [phone] Step 5: Professionals or agencies I can contact during a crisis: Clinician/Agency Name Phone Emergency Contact Dr. Sinan Last [phone] Joe Godfrey, Counselor, [facility] [phone] Dr. Johnathon Braga [phone] Local Emergency Department Emergency Department Address Emergency Department Phone [address] [facility] [phone] Suicide Prevention Lifeline Phone: Call or Text 931 Crisis Text Line: Text HOME to 758090 Step 6: Making the environment safer (plan for lethal means safety): Per , firearms are in the home but are locked in a safe. reports that she has the aguayo to the safe. She reported that firearms all have trigger locks, and she has the keys to those as well. She reports that the ammo is in a separate location from the firearms. Per , she monitors all of his medications. She reports that all medications, including OTC medications are put up and monitored by her. Per , she has no concerns about sharp objects being an issue regarding lethal means. Discussed limiting or monitoring other possible lethal means such as ropes, ties, belts, etc. And household chemicals. She reported that she has also removed his car keys. Discussion included behaviors to monitor for as well. Lisa spoke with on 07/15/23. Keep in contact with people who I care about. Optional: What is most important to me and worth living for?: Family Andrew Safety Plan. Jessica Mcdonald and Ru Johnson. Used with permission of the authors. OW AGENT Associated attestation - Marsha Mcgowan APRN - 10/04/2023 1:56 PM ESCROW AGENT I have reviewed and discussed with treatment team and agree with the major portions of the treatment plan documented in this encounter Plan of Treatment Not on file documented as of this encounter Visit Diagnoses Diagnosis Moderate episode of recurrent major depressive disorder documented in this encounter Additional Health Concerns Assessment Noted Time PHQ-9 Depression Total Score: 2 08/24/20 23 4:00 PM ESCROW AGENT documented as of this encounter
--- OUTSIDE RECORDS SUMMARY | 2024-09-03 08:01 | XMS_ITS | Encounter Summary ---
Author Organization [facility] Address [address] [place] [address] Care Team Providers Care Proof Coin Collector Name Role Phone Unavailable Primary Care Provider Unavailabl e Encounter Details Date Type Department Care Team (Late st Contact Info) Description 01/26/2024 External Device Data STL ABSTRACTION Provider, Abstract [...] Total Score: 1 09/08/20 23 1:00 PM METALLURGICAL LABORATORY ASSISTANT documented as of this encounter
--- OUTSIDE RECORDS SUMMARY | 2024-09-03 08:01 | XMS_ITS | Encounter Summary ---
Author Organization [facility] Address [address] [place] [address] Care Team Providers Care Die Trouble Shooter Name Role Phone Unavailable Primary Care Provider Unavailabl e Encounter Details Date Type Department Care Team (Late st Contact Info) Description 08/28/2023 External Device Data STL ABSTRACTION Provider, Abstract [...] Total Score: 2 08/24/20 23 4:00 PM WIRE SAWYER documented as of this encounter
--- OUTSIDE RECORDS SUMMARY | 2024-09-03 08:01 | XMS_ITS | Encounter Summary ---
Author Organization [facility] Address [address] [place] [address] Care Team Providers Care Web Search Evaluator Name Role Phone Unavailable Primary Care Provider Unavailabl e Reason for Visit * Auth/Cert (Routine) Specialty Diagnoses / Procedures Referred By Jonah t Referred To Contact Behavioral Health [facility] [place] [address] [place] [address] Referral ID Status Reason Start Date Expiration Date Visits Re quested Visits Authorized [id number] 1 1 Encounter Details Date Type Department Care Team (Latest Contact Info) Description 08/03/2023 9:00 AM SPOOLING OPERATOR - 08/03/2023 11:59 PM [facility] Hospital Encounter [facility] Outpatient Behavioral Health Program Services [address] [place] [address] Marsha Mcgowan, EKG TECHNICIAN [address] [place] [address] Discharge Disposition: Home or Self [...] End Date PARoxetine HCl (PAXIL) 20 mg tabletIndications:depre ssion Take 1 Tablet (20 mg) by mouth [...] 3 times daily as needed for Dizziness. venlafaxine (EFFEXOR) 50 mg tablet Take 1 Tablet (50 mg) by mouth 3 times daily for 7 days, THEN 0.5 Tablets (25 mg) 3 times daily for 7 days, THEN 0.5 Tablets (25 mg) 2 times daily for 7 days, THEN 0.5 Tablets (25 mg) daily for 7 days. 42 Tablet 07/08/2023 08/05/2023 documented as of this encounter Progress Notes * Suman Akhtar, RN DIALYSIS - 08/03/2023 9:00 AM CST [facility] Group Note Date: 08/03/2023 Time of Session: Start Time: 9:00 End Time: 10:00 Number of group members present in group: 8 Process Group Topic: goal setting and illness [...] pain as 8/10 level of depression as 9/10 level of anger as 8/10 level of anxiety as 7/10 5-6 hours of sleep in the last 24 hours and Reports feeling rested upon waking. Wily Reports medication compliance in the last 24 hours. Regarding substance use in the past 24 hours, Wily denies substance use or misuse. Interventions: Clinician provided reframing, provided validation, rehearsed goal setting, and use of motivational interviewing skills Patient Response: Wily reports using the following healthy coping skills to manage mental health symptoms in the last 24 hours: deep breathing, distraction skills, and relaxation techniques. Wily identified the following treatment goal/plan for today stay on course, try to control anger. Pt discussed his success at doing some things around the house and not having any anger. Pt is finding that meditation is helping him not lash out so much. Time of Session: Start Time: 10:05 End Time: 11:05 Number of group members present in group: 8 Process Group Topic: triggers Observation/Assessment: At this session, Wily's cognition is [...] was active/cooperative, attentive, and engaged Interventions: Clinician explained and rehearsed coping skills targeting recognizing and managing triggers in healthy ways and use of motivational interviewing skills Patient Response: Wily responded to group topic by discussing some of his triggers like when people don't behave in a certain way of things don't work light Tita lights, etc. Pt stated that meditation and just walking away and taking a break work for him. Time of Session: Start Time: 11:10 End Time: 12:10 Number of group members present in group: 8 Process Group Topic: adaptive vs maladaptive coping skills Observation/Assessment: At this session, Wily's cognition is [...] active/cooperative, attentive, and engaged Interventions: Clinician facilitated behavioral rehearsal, facilitated CBT skills practiced , provided education and feedback on using healthy coping skills, and use of motivational interviewing skills Patient Response: Wily responded to group topic by learning about coping techniques like distraction, Socratic questioning and mindfulness as well as how to use his senses to ground himself. LING OPERATOR documented in this encounter Plan of Treatment Not on file documented as of this encounter Visit Diagnoses Not on filedocumented in this encounter Additional Health Concerns Assessment Noted Time PHQ-9 Depression Total Score: 2 07/15/20 23 8:32 AM CDT documented as of this encounter
--- OUTSIDE RECORDS SUMMARY | 2024-09-03 08:01 | XMS_ITS | Encounter Summary ---
Author Organization [facility] Address [address] [place] [address] Care Team Providers Care Seed Buyer Name Role Phone Unavailable Primary Care Provider Unavailabl e Encounter Details Date Type Department Care Team (Late st Contact Info) Description 12/18/2023 External Device Data STL ABSTRACTION Provider, Abstract [...] Total Score: 1 09/08/20 23 1:00 PM FURNACE MECHANIC HELPER documented as of this encounter
--- OUTSIDE RECORDS SUMMARY | 2024-09-03 08:01 | XMS_ITS | Encounter Summary ---
Author Organization [facility] Address [address] [place] [address] Care Team Providers Care Ophthalmology Surgical Technician Name Role Phone Unavailable Primary Care Provider Unavailabl e Encounter Details Date Type Department Care Team (Late st Contact Info) Description 11/19/2023 External Device Data STL ABSTRACTION Provider, Abstract [...] Total Score: 1 09/08/20 23 1:00 PM OFFICE LEAD documented as of this encounter
--- OUTSIDE RECORDS SUMMARY | 2024-09-03 08:01 | XMS_ITS | Encounter Summary ---
Author Organization [facility] Address [address] [place] [address] Care Team Providers Care Correctional Corporal Name Role Phone Unavailable Primary Care Provider Unavailabl e Encounter Details Date Type Department Care Team (Late st Contact Info) Description 03/15/2024 External Device Data STL ABSTRACTION Provider, Abstract [...] Total Score: 1 09/08/20 23 1:00 PM SALES REPRESENTATIVE BUSINESS COURSES documented as of this encounter
--- OUTSIDE RECORDS SUMMARY | 2024-09-03 08:01 | XMS_ITS | Encounter Summary ---
Author Organization [facility] Address [address] [place] [address] Care Team Providers Care Sales Representative Name Role Phone Unavailable Primary Care Provider [...] Total Score: 1 09/08/20 23 1:00 PM DIRECTOR OF GUIDANCE IN PUBLIC SCHOOLS documented as of this encounter
--- OUTSIDE RECORDS SUMMARY | 2024-09-03 08:01 | XMS_ITS | Encounter Summary ---
Author Organization [facility] Address [address] [place] [address] Care Team Providers Care Geomagnetist Name Role Phone Unavailable Primary Care Provider Unavailabl e Reason for Visit * Auth/Cert (Routine) Specialty Diagnoses / Procedures Referred By Jonah t Referred To Contact Behavioral Health [facility] Op Behavioral Health [place]g [address] [place] [address] Referral ID Status Reason Start Date Expiration Date Visits Re quested Visits Authorized [id number] 1 1 Encounter Details Date Type Department Care Team (Latest Contact Info) Description 07/31/2023 9:00 AM CAPTAIN WAITER/WAITRESS - 07/31/2023 11:59 PM [facility] Hospital Encounter [facility] Outpatient Behavioral Health Program Services [address] [address] [place] [address] Marsha Mcgowan, CHILD LIFE ASSISTANT [address] [place] [address] Discharge Disposition: Home or Self [...] this encounter Progress Notes * Suman Akhtar, POLYMERIZATION ENGINEER - 07/31/2023 9:00 AM CST [facility] Group Note Date: 07/31/2023 Time of Session: Start Time: 9:00 End [...] pain as 8/10 level of depression as 8/10 level of anger as 5/10 level of anxiety as 8/10 5-6 hours of sleep in the last 24 hours and Does not report feeling rested upon waking. Wily Reports medication compliance in the last 24 hours. Regarding substance use in the past 24 hours, Wily denies substance use or misuse. Interventions: Clinician provided validation, rehearsed goal setting, and use of motivational interviewing skills Patient Response: Wily reports using the following healthy coping skills to manage mental health symptoms in the last 24 hours: deep breathing, distraction skills, and relaxation techniques. Wily identified the following treatment goal/plan for today continue on a path to recovery and stop hating myself for what I did. Pt stated that he had a couple low ups but they didn't escalate like they usually do. Pt stated that he went from daily blow ups to a couple times a week. They are also not lasting as long as they use to. Time of Session: Start Time: 10:05 End Time: 11:05 Number of group members present in group: 8 Process Group Topic: positive psychology Observation/Assessment: At this session, Wily's cognition is [...] Interventions: Clinician provided education and feedback on how to use positive psychology to retrain the mind and improve mood and outlook, rehearsed positive self-talk, and use of motivational interviewing skills Patient Response: Wily responded to group topic by engaging in the discussion and learning how positive psychology can help him to get to a better place. Pt learned the importance of gratitude, helping others and meditation. Time of Session: Start Time: 11:10 End Time: 12:10 Number of group members present in group: 8 Process Group Topic: silver linings Observation/Assessment: At this session, Wily's cognition is [...] Interventions: Clinician provided education and feedback on how to find silver linings in difficultsituations and use of motivational interviewing skills Patient Response: Wily responded to group topic by working on the handout and engaging in the discussion about putting in a effort to find [positive things even when things are tough. Pt is recognizing his improvement of patients and self control. AIN WAITER/WAITRESS documented in this encounter Plan of Treatment Not on file documented as of this encounter Visit Diagnoses Not on filedocumented in this encounter Additional Health Concerns Assessment Noted Time PHQ-9 Depression Total Score: 2 07/15/20 23 8:32 AM CDT documented as of this encounter
--- OUTSIDE RECORDS SUMMARY | 2024-09-03 08:01 | XMS_ITS | Encounter Summary ---
Author Organization [facility] Address [address] [place] [address] Care Team Providers Care Hand Plate Stacker Name Role Phone Unavailable Primary Care Provider Unavailabl e Reason for Visit * Auth/Cert (Routine) Specialty Diagnoses / Procedures Referred By Jonah t Referred To Contact Behavioral Health [facility] Op Behavioral [place] [address] [place] [address] Referral ID Status Reason Start Date Expiration Date Visits Re quested Visits Authorized [id number] 1 1 Encounter Details Date Type Department Care Team (Latest Contact Info) Description 08/14/2023 9:00 AM FELT CARBONIZER - 08/14/2023 11:59 PM [facility] Hospital Encounter [facility] Outpatient Behavioral Health Program Services [address] [place] [address] Marsha Mcgowan, BREAD SLICER MACHINE [address] [place] [address] Discharge Disposition: Home or Self [...] this encounter Progress Notes * Suman Akhtar, GLASS SANDER BELT - 08/14/2023 9:00 AM CST [facility] Group Note Date: 08/14/2023 Time of Session: Start Time: 9:00 End Time: 10:00 Number of group members present in group: 11 Process Group Topic: goal setting and illness [...] the following information: level of pain as 7/10 level of depression as 6/10 level of anger as 4/10 level of anxiety as 5/10 3-4 hours of sleep in the last 24 hours and Does not report feeling rested upon waking. Wily Reports medication compliance in the last 24 hours. Regarding substance use in the past 24 hours, Wily denies substance use or misuse. Interventions: Clinician provided validation, rehearsed goal setting, rehearsed positive self-talk,use of motivational interviewing skills, and use of restatement Patient Response: Wily reports using the following healthy coping skills to manage mental health symptoms in the last 24 hours: distraction skills, exercise, and relaxation techniques. Wily identified the following treatment goal/plan for today to make significant changes in my behavior. Leona reported that he had a good night and didn't have any anger outbursts. Time of Session: Start Time: 10:05 End Time: 11:05 Number of group members present in group: 11 Process Group Topic: behavioral activation Observation/Assessment: At this session, Wily's cognition is [...] was active/cooperative, attentive, and engaged Interventions: Clinician encouraged exploration of things he would like to accomplish and use of motivational interviewing skills Patient Response: Wily responded to group topic by identifying that he would like to begin eating healthier and exercising. Time of Session: Start Time: 11:10 End Time: 12:10 Number of group members present in group: 11 Process Group Topic: self care assessment Observation/Assessment: At this session, Wily's cognition is [...] active/cooperative, attentive, and engaged Interventions: Clinician rehearsed goal setting and use of motivational interviewing skills Patient Response: Wily responded to group topic by stating, I found out I can talk anytime I wantaround people I do not knowat all and that can be very good for me personally . CARBONIZER documented in this encounter Plan of Treatment Not on file documented as of this encounter Visit Diagnoses Not on filedocumented in this encounter Additional Health Concerns Assessment Noted Time PHQ-9 Depression Total Score: 2 08/05/20 23 1:00 PM FELT CARBONIZER documented as of this encounter
--- OUTSIDE RECORDS SUMMARY | 2024-09-03 08:01 | XMS_ITS | Encounter Summary ---
Author Organization [facility] Address [address] [place] [address] Care Team Providers Care Hand Ii Thermal Cutter Name Role Phone Unavailable Primary Care Provider Unavailabl e Encounter Details Date Type Department Care Team (Late st Contact Info) Description 11/02/2023 External Device Data STL ABSTRACTION Provider, Abstract [...] Total Score: 1 09/08/20 23 1:00 PM BULK COOLER INSTALLER documented as of this encounter
--- OUTSIDE RECORDS SUMMARY | 2024-09-03 08:01 | XMS_ITS | Encounter Summary ---
Author Organization [facility] Address [address] [place] [address] Care Team Providers Care Exterminator Termite Name Role Phone Unavailable Primary Care Provider Unavailabl e Reason for Visit * Auth/Cert (Routine) Specialty Diagnoses / Procedures Referred By Jonah t Referred To Contact Behavioral Health [facility] Op Behavioral [place] [address] [place] [address] Referral ID Status Reason Start Date Expiration Date Visits Re quested Visits Authorized [id number] 1 1 Encounter Details Date Type Department Care Team (Latest Contact Info) Description 07/27/2023 9:00 AM COUNTY JUDGE - 07/27/2023 11:59 PM [facility] Hospital Encounter [facility] Outpatient Behavioral Health Program Services [address] [address] [place] [address] Marsha Mcgowan, REGULATORY AFFAIRS CONSULTANT [address] [place] [address] Discharge Disposition: Home or Self [...] this encounter Progress Notes * Suman Akhtar, SCREEN EXAMINER - 07/27/2023 9:00 AM CST [facility] Group Note Date: 07/27/2023 Time of Session: Start Time: 9:00 End Time: 10:00 Number of group members present in group: 7 Process Group Topic: goal setting and illness [...] depression as 6/10 level of anger as 8/10 level of anxiety as 8/10 3-4 hours of sleep in the last [...] symptoms in the last 24 hours: distraction skills. Wily identified the following treatment goal/plan for today increase my success. Pt stated that he had a good weekend. He got the [place] lights up and didn't have any anger outbursts. Pt said he got guitar out for the first time in 2 years and played it for 30 minutes. Time of Session: Start Time: 10:10 End Time: 11:10 Number of group members present in group: 7 Process Group Topic: identifying healthy vs unhealthy [...] topic by taking part in the group exercises and working on the group handout. Pt discussed how he and his has a discussion over something and he thinksit is over but a few hours later she continues the discussion. Pt learned about and practiced I statements to help in that situation. Time of Session: Start Time: 11:20 End Time: 12:20 Number of group members present in group: 8 Process Group Topic: identifying healthy vs unhealthy [...] responded to group topic by working on assertive communication and practicing reflective listening, active listening and I statements. TY JUDGE documented in this encounter Plan of Treatment Not on file documented as of this encounter Visit Diagnoses Not on filedocumented in this encounter Additional Health Concerns Assessment Noted Time PHQ-9 Depression Total Score: 2 07/15/20 23 8:32 AM CDT documented as of this encounter
--- OUTSIDE RECORDS SUMMARY | 2024-09-03 08:01 | XMS_ITS | Encounter Summary ---
Author Organization [email or web address] Address [address] [place] [address] Care Team Providers Care Sample Hand Name Role Phone Unavailable Primary Care Provider Unavailabl e Encounter Details Date Type Department Care Team (Late st Contact Info) Description 05/03/2024 External Device Data STL ABSTRACTION Provider, Abstract [...] Total Score: 1 09/08/20 23 1:00 PM ENTRY LEVEL ACCOUNT EXECUTIVE documented as of this encounter
--- OUTSIDE RECORDS SUMMARY | 2024-09-03 08:01 | XMS_ITS | Encounter Summary ---
Author Organization [email or web address] Address [address] [place] [address] Care Team Providers Care Block Stacker Name Role Phone Unavailable Primary Care Provider Unavailabl e Reason for Visit * Reason Onset Date Comments Follow Up 09/01/2023 Encounter Details Date Type Department Care Team (Late st Contact Info) Description 09/01/2023 Telephone [facility] Outpatient Behavioral Health Program Services [address] [address] [place] [address] Alison Ibrahim, STONEHAND Follow Up Social History Tobacco Use Types [...] Total Score: 2 08/24/20 23 4:00 PM GARNETT FEEDER documented as of this encounter
--- OUTSIDE RECORDS SUMMARY | 2024-09-03 08:01 | XMS_ITS | Encounter Summary ---
Author Organization [facility] Address [address] [place] [address] Care Team Providers Care Senior Sharepoint Developer Name Role Phone Unavailable Primary Care Provider Unavailabl e Reason for Visit * Auth/Cert (Routine) Specialty Diagnoses / Procedures Referred By Jonah t Referred To Contact Behavioral Health [facility] Op Behavioral Health Prog [address] [place] [address] Referral ID Status Reason Start Date Expiration Date Visits Re quested Visits Authorized [id number] 1 1 Encounter Details Date Type Department Care Team (Latest Contact Info) Description 08/21/2023 9:00 AM KOSHER SEALER - 08/21/2023 11:59 PM [facility] Hospital Encounter [facility] Outpatient Behavioral Health Program Services [address] [address] [place] [address] Marsha Mcgowan, RACE AND SPORTS BOOK WRITER [address] [place] [address] Discharge Disposition: Home or Self [...] this encounter Progress Notes * Suman Akhtar, TRAIN OPERATOR - 08/21/2023 9:00 AM CST [facility] Group Note Date: 08/21/2023 Time of Session: Start Time: 9:00 End [...] as 8/10 level of anxiety as 8/10 5-6 hours [...] in the last 24 hours: distraction skills, emotional regulation skills, and relaxation techniques. Wliy identified the following treatment goal/plan for today to get stronger mentally. Pt discussed his eye exam and that he will be having caterac surgery next year. Pt wants to first take care ofhis and make sure she is good. We discussed pt not putting off the surgery but also not ruminating in the time leading up to the surgery. Time of Session: Start Time: 10:05 End Time: 11:05 Number of group members present in group: 6 Process Group Topic: relapse prevention for mental health Observation/Assessment: At this session, Wily's cognition is [...] and engaged Interventions: Clinician provided validation, rehearsed positive self-talk, use of motivational interviewing skills, and use of restatement Patient Response: Wily responded to group topic by I found out I'm not alone and have hope for the future and that is helpful to know in my journey ahead . Time of Session: Start Time: 11:10 End Time: 12:10 Number of group members present in group: 6 Process Group Topic: relationship gratitude Observation/Assessment: At this session, Thors cognition is [...] active/cooperative, attentive, and engaged Interventions: Clinician provided reframing, provided validation, rehearsed goal setting, rehearsedproblem solving skills, and use of motivational interviewing skills Patient Response: Wily responded to group topic by stating, I learned I can improve my relationship with my by doing certain things I have read and talked about in group. Those things included giving compliments and breaks, doing chores and being grateful. ER SEALER documented in this encounter Plan of Treatment Not on file documented as of this encounter Visit Diagnoses Not on filedocumented in this encounter Additional Health Concerns Assessment Noted Time PHQ-9 Depression Total Score: 2 08/05/20 23 1:00 PM KOSHER SEALER documented as of this encounter
--- OUTSIDE RECORDS SUMMARY | 2024-09-03 08:01 | XMS_ITS | Encounter Summary ---
Author Organization [facility] Address [address] [place] [address] Care Team Providers Care Director Hr Communications Name Role Phone Unavailable Primary Care Provider Unavailabl e Encounter Details Date Type Department Care Team (Late st Contact Info) Description 02/23/2024 External Device Data STL ABSTRACTION Provider, Abstract [...] Total Score: 1 09/08/20 23 1:00 PM ABNORMAL PSYCHOLOGY TEACHER documented as of this encounter
--- OUTSIDE RECORDS SUMMARY | 2024-09-03 08:01 | XMS_ITS | Encounter Summary ---
Author Organization [email or web address] Address [address] [place] [address] Care Team Providers Care Leather Seasoner Name Role Phone Unavailable Primary Care Provider Unavailabl e Encounter Details Date Type Department Care Team (Late st Contact Info) Description 07/30/2023 External Device Data STL ABSTRACTION Provider, Abstract [...]
--- OUTSIDE RECORDS SUMMARY | 2024-09-03 08:01 | XMS_ITS | Encounter Summary ---
Author Organization [facility] Address [address] [place] [address] Care Team Providers Care Kitchen Runner Name Role Phone Unavailable Primary Care Provider Unavailabl e Reason for Visit * Auth/Cert (Routine) Specialty Diagnoses / Procedures Referred By Jonah t Referred To Contact Behavioral Health [facility] [place] [address] [place] [address] Referral ID Status Reason Start Date Expiration Date Visits Re quested Visits Authorized [id number] 1 1 Encounter Details Date Type Department Care Team (Latest Contact Info) Description 09/02/2023 9:00 AM PRESS ASSISTANT - 09/02/2023 11:59 PM [facility] Hospital Encounter [facility] Outpatient Behavioral Health Program Services [phone] [place] [address] Marsha Mcgowan, REVENUE RESEARCH ANALYST [address] [place] [address] Discharge Disposition: Home or Self [...] as of this encounter Progress Notes * Marsha Mcgowan APRN - 09/02/2023 9:00 AM CST [facility] INTENSIVE OUTPATIENT PROGRAM PROGRESS NOTE PATIENT: Wily Bahena AGE: 67 y.o. Date of : 1955 Chief Complaint: I think I need a couple more days of group. Interval History of Present Illness: The medical record reflects the history of present illness as obtained by myself in discussion withthe patient. I reviewed the chart, discussed patient???s care with the treatment team and interviewed the patient. The patient currently endorses or displays the following: Wily reports his OP psychiatrist changed some of his medications a couple of weeks ago. He also started Aricept for early dementia that he reports being diagnosed at [facility] a couple of years ago with an outpatient provider. He has been learning ways to cope in group such as meditation, reading, walking the dog. Some of it works and some of it doesn't. He denies suicidal thoughts. He is getting a sleep study next week and believes that he is going to need a CPAP machine. He alsoreports nightmares 3 times per week that have been going on for 2 years. He reports his psychiatrist thinking it may be due to one of his psychiatric medications. He believes that OP psych is trying to get him off of Effexor and onto Paxil by itself. He continues to see OP psych for medication management. I feel a lot better than when I came in. He reports decreased anger episodes. He provides the example of someone pulling out in front of him while driving, and he did not have an explosive reaction. He states that this would usually make him have an outburst. He has been working with therapist Lex on the compulsive behavior. Depression is rated at 5/10 Anxiety is rated at 4/10 Adherence to medication: yes Side effects noted or reported: no Behavioral disturbance noted or reported: yes Participation in therapeutic groups: yes Appetite: [x] good; [] Fair; [] Poor Sleep Hours: not very good. 6 hours, has nightmares. Family & Social History: [x] No changes [...] facility-administered medications on file prior to encounter. No orders of the defined types were placed in this encounter. Review of Systems: Constitutional: No fever or chills HENT: No congestion, sore throat or rhinorrhea Eyes: No visual disturbance Respiratory: No cough or shortness of breath Cardiovascular: No chest pain or palpitations Gastrointestinal: No nausea, vomiting, abdominal pain or diarrhea Genitourinary: No dysuria or hematuria Musculoskeletal: No myalgias or back pain Skin: No rash or wound Neurological: No weakness or tremors Vital Signs: There were no vitals taken [...] reaction to internal stimuli Associations: intact Mood: good Affect: mood congruent Suicidal thoughts/plan: denies Homicidal thoughts/plan: denies Insight: fair Judgment: fair Attention/Concentration: focused and able to attend to conversation Memory: grossly intact Fund of Knowledge: average Muscle strength and tone: normal Gait: normal Labs: I have reviewed all labs; pertinent results are noted below. No results found for this or any previous visit (from the past 24 hour(s)). 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 We have extensively discussed with the patient medication, side effects, adverse events including but not limited to weight loss, weight gain, sedation, activation, and worsening of suicidal Ideationwith the start of medications. Supportive therapy, psychoeducation and medication education were provided. Alternative treatment options, risks and benefits were reviewed. Patient agreed with the plan. Further adjustment will be decided based on progress and consent. Admitted to [facility] 3 days per week until discharge. Safety plan was reviewed; patient???s safety will remain monitored every visit. Coordination with: [x] Nursing [x] Care management/Social Work [] Physician [] Family/Guardian Disposition planning: [x] Outpatient Psychiatrist [] Medical Provider Medication Management [x] Individual Therapist [] Trauma Therapy [] DBT [] Other: Status - This patient requires continued weekly supervision in [facility] because: [x] Mood instability [] Moderate risk of harm to self or others [x] Inadequate coping skills [] Lack of support system On the day of the visit, I spent 31 minutes providing care to this patient including Preparing to see the patient, Obtaining and/or reviewing separately obtained history, Performing a medically appropriate examination and/or evaluation, Counseling and educating the patient/family/caregiver, Ordering medications, tests or procedures, Documenting clinical information in the medical record, and Independently interpreting results and communicating results to the patient/family/caregiver (not separately reported). AMY Ambrosio 09/02/2023 Patient resources for outpatient crisis management: Behavior Health Response [phone] or [phone] (free service) Suicide Prevention Lifeline [phone] (free service) In the event of emergency call 911 S ASSISTANT * Dolores Foreman LPC - 09/02/2023 9:00 AM CST [facility] Group Note Date: 09/02/2023 Time of Session: Start Time: 9:00 End Time: 10:00 Number of group members present in group: 11 Process Group Topic: goal setting and illness management Observation/Assessment: At this session, Wily's cognition is noted to be Alert Wily's appearance is noted to be appropriately dressed for weather/season and well-groomed Wily's eye contact is noted to be Direct and Good Wily's speech is noted to be clear, normal rate and rhythm, and spontaneous Wily's thoughts are noted to be appropriate and within normal limits Wily's mood is noted to be anxious Wily's affect is noted to be congruent with mood Wily's insight and judgment are noted to be good Wily presents with the current symptoms of anger or anger outbursts, anxiety, and depression Wily does not report suicidal thoughts or plans and does not report homicidal thoughts and plans Wily's level of group participation for this session was active/cooperative, attentive, engaged, and open and willing to work on mental health Wily reported the following information: level of pain as 8/10 level of depression as 6/10 level of anger as 4/10 level of anxiety as 8/10 5-6 hours of sleep in the last 24 hours and Reports feeling rested upon waking. Wily Reports medication compliance in the last 24 hours. Regarding substance use in the past 24 hours, Wily denies substance use or misuse. Interventions: Clinician rehearsed goal setting, rehearsed use of healthy communication skills, useof restatement, validated experience , and validated feelings Patient Response: Wily reports using the following healthy coping skills to manage mental health symptoms in the last 24 hours: walking, meditation, reading . Wily identified the following treatment goal/plan for today: to become whole again. Wily shared he is feeling better than he was but not where he wants to be yet. He gave an example of how he has been working on his anger and challenging negative thoughts when he had an encounter in traffic. He stated normally he would have become instantly angry and yelling but instead he told himself maybe the person made a mistake or was running late and let it go. Time of Session: Start Time: 10:05 End Time: 11:05 Number of group members present in group: 11 Process Group Topic: DBT skills: Thompson Mind Observation/Assessment: At this session, Wily's cognition is noted to be Alert Wily's appearance is noted to be appropriately dressed for weather/season and well-groomed Wily's eye contact is noted to be Direct and Good Wily's speech is noted to be clear, normal rate and rhythm, and spontaneous Wily's thoughts are noted to be appropriate and within normal limits Wily's mood is noted to be anxious Wily's affect is noted to be congruent with mood Wily's insight and judgment are noted to be good Wily presents with the current symptoms of anger or anger outbursts, anxiety, and depression Wily does not report suicidal thoughts or plans and does not report homicidal thoughts and plans Wily's level of group participation for this session was active/cooperative, attentive, engaged, and open and willing to work on mental health Interventions: Clinician provided education on DBT concept of Thompson Mind, included handouts and videos to assist learning, facilitated identifying skill used and how it might be used in the future, facilitated discussion on topics Patient Response: Wily responded to group topic by reading the handout and watching the video. He spoke about practicing more self-care and how it benefits him. He shared he used to think it was selfish but now realizes it is important and that he deserves to take care of his own needs as well. Time of Session: Start Time: 11:10 End Time: 12:10 Number of group members present in group: 11 Process Group Topic: DBT skills: Emotional Regulation Observation/Assessment: At this session, Wily's cognition is noted to be Alert Wily's appearance is noted to be appropriately dressed for weather/season and well-groomed Wily's eye contact is noted to be Direct and Good Wily's speech is noted to be clear, normal rate and rhythm, and spontaneous Wily's thoughts are noted to be appropriate and within normal limits Wily's mood is noted to be anxious Wily's affect is noted to be congruent with mood Wily's insight and judgment are noted to be good Wily presents with the current symptoms of anger or anger outbursts, anxiety, and depression Wily does not report suicidal thoughts or plans and does not report homicidal thoughts and plans Wily's level of group participation for this session was active/cooperative, attentive, engaged, and open and willing to work on mental health Interventions: Clinician provided education on strategies for emotional regulation including Opposite Action, Check the Facts, P.L.E.A.S.E, and Paying attention to Positive Events, included handouts and videos to assist learning, facilitated identifying skills used and those will use in the future,facilitated discussion on topics Patient Response: Wily responded to group topic by reviewing the materials shared. When discussing paying attention to the positive events , he stated one positive activity he likes to engage in islistening to music. He reported what he learned in group today was, I learned I can talk in group and not be shy about it. I feel like I am accepted here . S ASSISTANT documented in this encounter Miscellaneous Notes * Treatment Plan - Dolores Foreman LPC - 09/02/2023 9:00 AM CST Treatment Team Meeting Note: An Interdisciplinary Treatment Team meeting was held on 09/02/2023 for Wily Bahena . The treatment team discussed the treatment plan, progress being made, any current issues and pending discharge plan and date. S ASSISTANT Associated attestation - Marsha Mcgowan APRN - 10/04/2023 3:11 PM PRESS ASSISTANT I have reviewed and discussed with treatment team and agree with the major portions of the treatment plan. AMY Ambrosio documented in this encounter Plan of Treatment Not on file documented as of this encounter Visit Diagnoses Not on filedocumented in this encounter Additional Health Concerns Assessment Noted Time PHQ-9 Depression Total Score: 2 08/24/20 23 4:00 PM PRESS ASSISTANT documented as of this encounter
--- OUTSIDE RECORDS SUMMARY | 2024-09-03 08:01 | XMS_ITS | Encounter Summary ---
Author Organization [facility] Address [address] [place] [address] Care Team Providers Care Fire Battalion Chief Name Role Phone Unavailable Primary Care Provider Unavailabl e Reason for Visit * Auth/Cert (Routine) Specialty Diagnoses / Procedures Referred By Jonah t Referred To Contact Behavioral Health [facility] Op Behavioral [place]g [address] [place] [address] Referral ID Status Reason Start Date Expiration Date Visits Re quested Visits Authorized [id number] 1 1 Encounter Details Date Type Department Care Team (Latest Contact Info) Description 08/18/2023 9:00 AM FRAMING MILL OPERATOR HELPER - 08/18/2023 11:59 PM [facility] Hospital Encounter [facility] Outpatient Behavioral Health Program Services [phone] [place] [address] Marsha Mcgowan, INSTRUMENT PERSON [address] [place] [address] Discharge Disposition: Home or Self [...] this encounter Progress Notes * Suman Akhtar, GREEN PLUMBER - 08/18/2023 9:00 AM CST [facility] Group Note Date: 08/18/2023 Time of Session: Start Time: 9:00 End [...] depression as 8/10 level of anger as 6/10 level of [...] in the last 24 hours: changed environment/surroundings, exercise, and relaxation techniques. Wily identified the following treatment goal/plan for today to improve every day. Pt discussed his 's surgery yesterday and that it went well. He was anxious about the surgery but knew her doctor was good. Pt is focused on taking care of her while she heals. Time of Session: Start Time: 10:05 End Time: 11:05 Number of group members present in group: 8 Process Group Topic: letter to future self Observation/Assessment: At this session, Wily's cognition is [...] Wily responded to group topic by discussing that he is learning to accept eventsin his life, especially the past, and try to move on. Time of Session: Start Time: 11:10 End Time: 12:10 Number of group members present in group: 8 Process Group Topic: strength identification Observation/Assessment: At this session, Thors cognition is [...] was active/cooperative, attentive, and engaged Interventions: Clinician use of motivational interviewing skills Patient Response: Wily responded to group topic by stating, I learned I comprehend things well and figure them out no matter how many things try to change my behavior. ING MILL OPERATOR HELPER documented in this encounter Plan of Treatment Not on file documented as of this encounter Visit Diagnoses Not on filedocumented in this encounter Additional Health Concerns Assessment Noted Time PHQ-9 Depression Total Score: 2 08/05/20 23 1:00 PM FRAMING MILL OPERATOR HELPER documented as of this encounter
--- OUTSIDE RECORDS SUMMARY | 2024-09-03 08:01 | XMS_ITS | Encounter Summary ---
Author Organization [facility] Address [address] [place] [address] Care Team Providers Care It Support Manager Name Role Phone Unavailable Primary Care Provider Unavailabl e Encounter Details Date Type Department Care Team (Late st Contact Info) Description 10/16/2023 External Device Data ST[facility] ABSTRACTION Provider, Abstract [...] Total Score: 1 09/08/20 23 1:00 PM LEGAL FILE CLERK documented as of this encounter
--- OUTSIDE RECORDS SUMMARY | 2024-09-03 08:01 | XMS_ITS | Encounter Summary ---
Author Organization [facility] Address [address] [place] [address] Care Team Providers Care Master Electrician Name Role Phone Unavailable Primary Care Provider Unavailabl e Encounter Details Date Type Department Care Team (Late st Contact Info) Description 11/06/2023 External Device Data ST[facility] ABSTRACTION Provider, Abstract [...] Total Score: 1 09/08/20 23 1:00 PM ADVERTISING COPY WRITER documented as of this encounter
--- OUTSIDE RECORDS SUMMARY | 2024-09-03 08:01 | XMS_ITS | Encounter Summary ---
Author Organization [facility] Address [address] [place] [address] Care Team Providers Care Wood Milling Machine Tender Name Role Phone Unavailable Primary Care Provider Unavailabl e Reason for Visit * Auth/Cert (Routine) Specialty Diagnoses / Procedures Referred By Jonah t Referred To Contact Behavioral Health [facility] Op Behavioral Health Prog [address] [place] [address] Referral ID Status Reason Start Date Expiration Date Visits Re quested Visits Authorized [id number] 1 1 Encounter Details Date Type Department Care Team (Latest Contact Info) Description 08/13/2023 9:00 AM LEAD TELLER - 08/13/2023 11:59 PM [facility] Hospital Encounter [facility] Outpatient Behavioral Health Program Services [phone] [address] [place] [address] Marsha Mcgowan, WARDROBE CONSULTANT [address] [place] [address] Moderate episode of recurrent major [...] Progress Notes * Katherine Small MD - 08/13/2023 9:00 AM CST [facility] PROGRESS NOTE This note was generated with [employer]ch voice recognition software and may contain unintended nickel plant operator errors. PATIENT: Wily Bahena AGE: 67 y.o. CSN: [id number] Date of : 1955 Service date: 08/13/2023 ASSESSMENT DIAGNOSIS: Moderate episode of recurrent major depressive disorder Principal Problem: Moderate episode of recurrent major depressive disorder [...] patient currently endorses or displays the following: Patient is calm, cooperative. No mood or behavioral disturbance. No confusion. He reported mild anxiety. Denied significant depression, no SI HI. Pt denied auditory or visual hallucination. No sign of responding to internal stimuli. Did not exhibit paranoia or delusion. Fair sleep and appetite. Compliant to medications. No behavioral disturbance. Participated in groups. Incidents: None. Behavioral problems: None. Compliance with medications: yes. Adverse effects of Meds: no. Concentration: Fair. Delusions: Did not exhibit. Self Report with 10 as the worst: Anxiety: 2/10 Depression: 0/10 Anger/Irritability: 0/10 Adherence to medication: yes Side [...] Associations: intact Mood: Calm. No significant depression or anxiety. Affect: mood congruent. In fair range. Insight: [...] face to face visit w/patient: 19 minutes. TELLER * Suman Akhtar, [facility] - 08/13/2023 9:00 AM CST [facility] Group Note Date: 08/13/2023 Time of Session: Start Time: 9:00 End [...] anger as 8/10 level of anxiety as 6/10 3-4 hours of sleep in the last [...] in the last 24 hours: deep breathing, focused on self-care, and relaxation techniques. Wily identified the following treatment goal/plan for today try to improve my condition. Pt's is having surgery Thursday so will be with her instead of group. He will make up on Thursday. Pt discussed his explosive anger at inanimate objects.After the pt discussed this, it seemed to indicate that his anger is actually towards his loss of some of his physical ability which is causing him to drop things and loose balance. Pt has had some improvement as he is using techniques like pausing andwalking away Time of Session: Start Time: 10:10 End Time: 11:10 Number of group members present in group: 8 Process Group Topic: cognitive restructuring skills Observation/Assessment: At this session, Wily's cognition [...] active/cooperative, attentive, and engaged Interventions: Clinician facilitated CBT skills practiced , facilitated cognitive restructuring, and use of motivational interviewing skills Patient Response: Wily responded to group topic by working on the group handout and working through a personal scenario where he was able to change his irrational thoughts and assumptions to rational thoughts and have a positive affect on his feelings and behaviors. Time of Session: Start Time: 11:15 End Time: 12:15 Number of group members present in group: 7 Process Group Topic: practicing relaxation skills Observation/Assessment: At this session, Wily's cognition [...] active/cooperative, attentive, and engaged Interventions: Clinician facilitated rehearsal of relaxation skills and use of motivational interviewing skills Patient Response: Wily responded to group topic by learning about mindfulness and meditation and practicing meditation with the group. Pt learned meditation benefits like reducing anxiety and depressive symptoms and having a more positive outlook on life. TELLER documented in this encounter Plan of Treatment Not on file documented as of this encounter Visit Diagnoses Diagnosis Moderate episode of recurrent major depressive disorder- Primary documented in this encounter Additional Health Concerns Assessment Noted Time PHQ-9 Depression Total Score: 2 08/05/20 23 1:00 PM LEAD TELLER documented as of this encounter
--- OUTSIDE RECORDS SUMMARY | 2024-09-03 08:01 | XMS_ITS | Encounter Summary ---
Author Organization [facility] Address [address] [place] [address] Care Team Providers Care Lpn Instructor Name Role Phone Unavailable Primary Care Provider Unavailabl e Reason for Visit * Auth/Cert (Routine) Specialty Diagnoses / Procedures Referred By Jonah t Referred To Contact Behavioral Health [facility] [place] [phone] [place] [address] Referral ID Status Reason Start Date Expiration Date Visits Re quested Visits Authorized [id number] 1 1 Encounter Details Date Type Department Care Team (Latest Contact Info) Description 08/31/2023 9:00 AM BROWNFIELD REDEVELOPMENT SPECIALIST - 08/31/2023 11:59 PM [facility] Hospital Encounter [facility] Outpatient Behavioral Health Program Services [phone] [place] [address] Marsha Mcgowan, CARTON AND CAN SUPPLY SUPERVISOR [address] [place] [address] Discharge Disposition: Home or Self [...] of this encounter Progress Notes * Rosalba Merritt LCSW - 08/31/2023 9:00 AM CST [facility] Group Note Date: 08/31/2023 Time of Session: Start Time: 9:00 End Time: 10:00 Number of group members present in group: 7 Process Group Topic: Goal setting Observation/Assessment: At this session, Wily's cognition is noted to be Alert Wily's appearance is noted to be appropriately dressed for weather/season and well-groomed Wily's eye contact is noted to be Direct and Good Wily's speech is noted to be clear, normal rate and rhythm, and spontaneous Wily's thoughts are noted to be appropriate and within normal limits Wily's mood is noted to be angry, anxious, appropriate and congruent, and depressed Wily's affect is noted to be congruent [...] anger as 8/10 level of anxiety as 4/10 5-6 hours of sleep in the last 24 hours and Reports feeling rested upon waking. Wily Reports medication compliance in the last 24 hours. Regarding substance use in the past 24 hours, Wily denies substance use or misuse. Interventions: Clinician facilitated discussion on current feelings and goals and coping skills used since last visit. Reviewed daily self-reports and discussed current issues and concerns to help with emotional expression and problem-solving. Motivational interviewing skills used. Patient Response: Wily reports using the following healthy coping skills to manage mental health symptoms in the last 24 hours: meditation, reading and relaxation techniques. Wily shared that his shoulder has been hurting lately. He explains that his goal has to do with not having any negative thoughts and getting his anger under control. He talked about another transit driver pulling out in front of him today and how he tried to stay calm. Wily identified the following treatment goal/plan for today to get better soon. Time of Session: Start Time: 10:05 End Time: 11:05 Number of group members present in group: 7 Process Group Topic: Illness management Observation/Assessment: At this session, Wily's cognition [...] limits Wily's mood is noted to be angry, anxious, appropriate and congruent, and depressed Wily's affect is noted to be congruent [...] to work on mental health Interventions: Clinician led a group discussion on illness management, recognizing triggers and identifying at least one new positive way to manage daily concerns. Motivational interviewing skills used and provided support, encouragement, and validation. Patient Response: Wily responded to group topic by stating that he continues to work on his anger management everyday and is trying to look at situations differently so he has a better outcome. Time of Session: Start Time: 11:10 End Time: 12:10 Number of group members present in group: 6 Process Group Topic: Recognizing Avoidance Observation/Assessment: At this session, Wily's cognition is noted to be Alert Wily's appearance is noted to be appropriately dressed for weather/season and well-groomed Wily's eye contact is noted to be Direct and Good Wily's speech is noted to be clear, normal rate and rhythm, and spontaneous Wily's thoughts are noted to be appropriate and within normal limits Wily's mood is noted to be angry, anxious, appropriate and congruent, and depressed Wily's affect is noted to be congruent [...] work on mental health Interventions: Clinician provided handouts on recognizing avoidance and discussing the negative andpositive points of avoidance. Provided validation of feelings and experience with discussing this awareness activity. Patient Response: Wily responded to group topic by helping to read from the handout. He shared that he checked many of the items on the list of common forms of avoidance. He voiced being in agreement with another group member who felt like avoidance is not always a bad thing. NFIELD REDEVELOPMENT SPECIALIST documented in this encounter Plan of Treatment Not on file documented as of this encounter Visit Diagnoses Not on filedocumented in this encounter Additional Health Concerns Assessment Noted Time PHQ-9 Depression Total Score: 2 08/24/20 4:00 PM BROWNFIELD REDEVELOPMENT SPECIALIST documented as of this encounter
--- OUTSIDE RECORDS SUMMARY | 2024-09-03 08:01 | XMS_ITS | Encounter Summary ---
Author Organization [facility] Address [address] [place] [address] Care Team Providers Care Instructional Developer Name Role Phone Unavailable Primary Care Provider Unavailabl e Reason for Visit * Auth/Cert (Routine) Specialty Diagnoses / Procedures Referred By Jonah t Referred To Contact Behavioral Health [facility] Op Behavioral Health [phone] [place] [address] Referral ID Status Reason Start Date Expiration Date Visits Re quested Visits Authorized [id number] 1 1 Encounter Details Date Type Department Care Team (Latest Contact Info) Description 08/05/2023 9:00 AM CURATOR HORTICULTURAL MUSEUM - 08/05/2023 11:59 PM [facility] Hospital Encounter [facility] Outpatient Behavioral Health Program Services [phone] [address] [place] [address] Marsha Mcgowan, CLUB ROOM ATTENDANT [address] [place] [address] Discharge Disposition: Home or Self [...] this encounter Progress Notes * Suman Akhtar, BOTTLE PACKING MACHINE CLEANER - 08/05/2023 9:00 AM CST [facility] Group Note Date: 08/05/2023 Time of Session: Start Time: 9:00 End [...] depression as 8/10 level of anger as 8/10 level of [...] symptoms in the last 24 hours: distraction skills and relaxation techniques. Wily identified the following treatment goal/plan for today keep on this crazy road to recovery. Pt stated that he has nightmares almost every night. They are typically violent and he is pretty active in his sleep kicking and scratching his . Time of Session: Start Time: 10:05 End Time: 11:05 Number of group members present in group: 7 Process Group Topic: strength exploration Observation/Assessment: At this session, Wily's cognition is [...] attentive, and engaged Interventions: Clinician encouraged exploration to identify strengths to be used to improve overallliving, redirected negative self-talk, rehearsed positive self-talk, and use of motivational interviewing skills Patient Response: Wily responded to group topic by working on the handout and discussing his strengths and how he can use teaching others and using compassion to help others as well. Time of Session: Start Time: 11:10 End Time: 12:10 Number of group members present in group: 7 Process Group Topic: neuroplasticity and growth mindset Observation/Assessment: At this session, Wily's cognition is [...] is noted to be congruent with mood Wliy's insight and judgment are noted to be good Wily presents with the current symptoms of no new symptoms reported Wily does not report suicidal thoughts or plans and does not report homicidal thoughts and plans Wily's level of group participation for this session was active/cooperative, attentive, and engaged Interventions: Clinician facilitated CBT skills practiced , facilitated cognitive restructuring, redirected negative self-talk, rehearsed positive self- talk, and use of motivational interviewing skills Patient Response: Wily responded to group topic by engaging in the discussion about retraining hismind by focusing on the things that he is grateful for and on the positive things in his life. TOR HORTICULTURAL MUSEUM documented in this encounter Miscellaneous Notes * Treatment Plan - Suman Akhtar LPC - 08/05/2023 9:00 AM CST IOP Treatment Plan Review Start/ End times: 215/230 Wily Bahena, date of : 1955, This Treatment Plan Review was completed in collaboration with attending providers and information from Wily (and career counselor if applicable), patient reports and chart documentation on 08/05/2023. Wily (and career counselor if applicable) provided consent for care. Wily reports being better as the result of treatment. Current Symptoms: Per clinical and patient reports: I feel I have made some improvements need somemore though. Treatment goals: Per Wily: learn ways to control my behavior, by impulsiveness, and decrease depression so that I can have sang, peace and serenity again. Progress/Challenges: eliminate all my sex drive tendencies and stop my anger before it stops me. Continued growth opportunities or adjustments made to current treatment plan: medicine adjustments and change my behaviors. Medications: compliant, tolerating Appetite, Sleep, Basic ADL concerns: sleep is extremely difficult to achieve. Try to get a sleep machine. Update on any change with patient's strengths or challenges as identified on Master Treatment Plan per Wily Bahena: no change Concerns over group attendance or in meeting with IOP provider: no Current status and description of patient???s thoughts: alert, oriented to person, place, and time Current changes or follow-up on issues with working/school: no change Assessment Updates: PHQ-9 8 MONCHO-7 10 Tentative Discharge Plan (including timeframe, referrals provided and providers/appts): 08/26/23 Tentative date for discharge: 08/26/23 Established therapist, next appointment and their contact information: [facility] [address] [place] [address] Established provider for medication management, next appointment and their contact information: Sinan Last [address], [place] [address] Referrals provided if no established therapist or provider for medication management: n/a Other supports in place counselor Other resources needed n/a Reviewed and updated Wily Bahena Safety Plan: no updates needed Are there safety concerns: no If yes, identify concern and how it is being currently addressed: n/a Reviewed safety plan, but no change. Pt was provided a copy and placed in chart Identify any changes that have been made to the existing safety plan: Resources: [facility] Suicide Prevention hotline numbers have been provided on safety plan: Suicide Prevention Lifeline Phone: Call or Text 044 Crisis Text Line: Text HOME to 931535 Professionals or agencies to be contacted as listed on safety plan: [facility] [address] [place] [address] Sinan Last [address], [place] [address] Updated Supportive Person: (Name/Relationship/Phone #): no updates (Review limits of confidentiality, including that outpatient services may contact this individual if the patient is deemed to be at imminent risk of harm.) Skills: Change in Reasons for living: no changes Personal skills the patient reports already knowing how to use when in distress: meditation, deep breathing, distraction kaya reading New skills taught/discussed to the patient during this review: body scanning Change to access of lethal means, including but not limited to firearms and medication: no changes needed Supervision and support: Current Living situation: with in a house Patient's plans for activities until returning to programming: read, do things around the house, Thanksgiving Changes to things that can be done to make the environment safe: no changes needed Details of notice to career counselor about Suicide Safety Plan, if any changes were made or if patientendorsed suicidal thoughts: n/a This treatment plan review has been presented and reviewed with Wily Bahena and, if applicable, the guardian or career counselor. Wily and, if applicable, guardian or career counselor have been given theopportunity to ask questions and make suggestions, and are in agreement with the information of this treatment plan review. Suman Akhtar LPC, 08/05/2023, 8:08 AM TOR HORTICULTURAL MUSEUM Associated attestation - Marsha Mcgowan APRN - 09/06/2023 9:04 AM CURATOR HORTICULTURAL MUSEUM I have reviewed and discussed with treatment team and agree with the major portions of the treatment plan. * Treatment Plan - Suman Akhtar LPC - 08/05/2023 9:00 AM CST Treatment Team Meeting Note: An Interdisciplinary Treatment Team meeting was held on 08/05/2023 for Wily Bahena . The treatment team discussed the treatment plan, progress being made, any current issues and pending discharge plan and date. TOR HORTICULTURAL MUSEUM Associated attestation - Marsha Mcgowan APRN - 09/20/2023 5:23 PM CURATOR HORTICULTURAL MUSEUM Discussed and agree with plan. AMY Ambrosio documented in this encounter Plan of Treatment Not on file documented as of this encounter Visit Diagnoses Not on filedocumented in this encounter Additional Health Concerns Assessment Noted Time PHQ-9 Depression Total Score: 2 11/22/20 23 1:00 PM CURATOR HORTICULTURAL MUSEUM documented as of this encounter
--- OUTSIDE RECORDS SUMMARY | 2024-09-03 08:01 | XMS_ITS | Encounter Summary ---
Author Organization [facility] Address [address] [place] [address] Care Team Providers Care Oracle Identity Management Consultant Name Role Phone Unavailable Primary Care [...] Total Score: 1 09/08/20 23 1:00 PM MANAGER OF ENGINEERING documented as of this encounter
--- OUTSIDE RECORDS SUMMARY | 2024-09-03 08:01 | XMS_ITS | Encounter Summary ---
Author Organization [facility] Address [address] [place] [address] Care Team Providers Care Plate Washer Name Role Phone Unavailable Primary Care Provider Unavailabl e Reason for Visit * Auth/Cert (Routine) Specialty Diagnoses / Procedures Referred By Jonah t Referred To Contact Behavioral Health [facility] Op Behavioral Health [place]g [address] [place] [address] Referral ID Status Reason Start Date Expiration Date Visits Re quested Visits Authorized [id number] 1 1 Encounter Details Date Type Department Care Team (Latest Contact Info) Description 09/04/2023 9:00 AM ADVERTISING COPYWRITER - 09/04/2023 11:59 PM [facility] Hospital Encounter [facility] Outpatient Behavioral Health Program Services [phone] [address] [place] [address] Marsha Mcgowan, GLASS LAMINATING OPERATOR [address] [place] [address] Discharge Disposition: Home or Self [...] this encounter Progress Notes * Suman Akhtar, FOREST BIOMETRICS PROFESSOR - 09/04/2023 9:00 AM CST [facility] Group Note Date: 09/04/2023 Time of Session: Start Time: 9:00 End [...] Wily presents with the current symptoms of anxiety and depression Wily does not report suicidal thoughts or plans and does not report homicidal thoughts and plans Wily's level of group participation for this session was active/cooperative, attentive, and engaged Wily reported the following information: level of pain as 8/10 level of depression as 8/10 level of anger as 2/10 level of anxiety as 6/10 5-6 hours [...] the following treatment goal/plan for today to become whole and gain spiritual fullness. Pt stated that recently he has had a couple chances to get angry but was able to use self talk and stay calm. Pt said his noticed and complimented him. Time of Session: Start Time: 10:05 End Time: 11:05 Number of group members present in group: 4 Process Group Topic: illness management Observation/Assessment: At [...] Interventions: Clinician provided validation, rehearsed positive self-talk, rehearsed use of healthy communication skills, and use of motivational interviewing skills Patient Response: Wily responded to group topic by stating, I learned that there are ways I can improve my behavior. My best results could come from changing it or doing things I like that could change it. This exercise allowed the pt to see the areas that he is strong in and the ones he wants to improve. Time of Session: Start Time: 11:10 End Time: 12:10 Number of group members present in group: 5 Process Group Topic: strength exploration Observation/Assessment: At this session, Thors cognition is [...] engaged Interventions: Clinician provided reframing, provided validation, and use of motivational interviewing skills Patient Response: Wily responded to group topic by identifying his strengths and learning how he can improve them to strengthen his relationships and his personal life and that knowing those strengths gives him the confidence he needs to make the improvements. RTISING COPYWRITER documented in this encounter Plan of Treatment Not on file documented as of this encounter Visit Diagnoses Not on filedocumented in this encounter Additional Health Concerns Assessment Noted Time PHQ-9 Depression Total Score: 2 08/24/20 4:00 PM ADVERTISING COPYWRITER documented as of this encounter
--- OUTSIDE RECORDS SUMMARY | 2024-09-03 08:01 | XMS_ITS | Encounter Summary ---
Author Organization [facility] Address [address] [place] [address] Care Team Providers Care Radiologic Technologist Chief Name Role Phone Unavailable Primary Care Provider Unavailabl e Reason for Visit * Auth/Cert (Routine) Specialty Diagnoses / Procedures Referred By Jonah t Referred To Contact Behavioral Health [facility] [address] Op Behavioral [place]g [address] [place] [address] Referral ID Status Reason Start Date Expiration Date Visits Re quested Visits Authorized [id number] 1 1 Encounter Details Date Type Department Care Team (Latest Contact Info) Description 08/19/2023 8:57 AM CLARIFYING PLANT OPERATOR - 08/19/2023 11:59 PM [facility] Hospital Encounter [facility] Outpatient Behavioral Health Program Services [phone] [place] [address] Marsha Mcgowan, MANAGER SHOP [address] [place] [address] Discharge Disposition: Home or Self [...] this encounter Progress Notes * Suman Akhtar, SNUFF GRINDER - 08/19/2023 9:00 AM CST [facility] Group Note Date: 08/19/2023 Time of Session: Start Time: 10:05 End Time: 11:05 Number of group members present in group: 10 Process Group Topic: coping skills for guilt and shame Observation/Assessment: At this session, Wily's cognition is [...] active/cooperative, attentive, and engaged Interventions: Clinician facilitated processing goals regarding the differences in guilt and shame and how to manage them in healthy ways, provided validation, and use of motivational interviewing skills Patient Response: Wily responded to group topic by I learned not to be critical of myself becauseI will make mistakes. I am human afterall. The trick for me is to minimize these thoughts when possible . Time of Session: Start Time: 11:10 End Time: 12:10 Number of group members present in group: 9 Process Group Topic: resiliency Observation/Assessment: At this session, Wily's cognition is [...] Clinician provided validation, rehearsed positive self-talk, rehearsed problem solving skills, and use of motivational interviewing skills Patient Response: Wily responded to group topic by Not to look at all the negative things in life. To think about what hurts me and what helps me. Know the next time a bad thing happens to me, think about the good things that happen to me instead. IFYING PLANT OPERATOR * Dolores Foreman LPC - 08/19/2023 9:00 AM CST [facility] Group Note Date: 08/19/2023 Time of Session: Start Time: 9:00 End Time: 10:00 Number of group members present in group: 9 Process Group Topic: goal setting and illness [...] the following information: level of pain as 9/10 level of depression as 7/10 level of anger as 6/10 level of anxiety as 4/10 5-6 hours of sleep in the last 24 hours and Does not report feeling rested upon waking. Wily Reports medication compliance in the last 24 hours. Regarding substance use in the past 24 hours, Wily denies substance use or misuse. Interventions: Clinician rehearsed goal setting, use of motivational interviewing skills, use of summarizing, validated experience , and validated feelings Patient Response: Wily reports using the following healthy coping skills to manage mental health symptoms in the last 24 hours: meditation, walking, watching nature . Wily identified the following treatment goal/plan for today: try to get comfortable with life. Wily shared his had surgery on Thursday and his increased self-report scores for depression andanxiety are due to his concerns over his . He reported he had an anger outburst on Thursday. He stated he continues to work on managing his anger. Wily shared he sometimes expresses the anger appropriately but other times does not. IFYING PLANT OPERATOR documented in this encounter Plan of Treatment Not on file documented as of this encounter Visit Diagnoses Not on filedocumented in this encounter Additional Health Concerns Assessment Noted Time PHQ-9 Depression Total Score: 2 08/05/20 23 1:00 PM CLARIFYING PLANT OPERATOR documented as of this encounter
--- OUTSIDE RECORDS SUMMARY | 2024-09-03 08:01 | XMS_ITS | Encounter Summary ---
Author Organization [facility] Address [address] [place] [address] Care Team Providers Care Blocking Machine Operator Second Name Role Phone Unavailable Primary Care Provider Unavailabl e Reason for Visit * Auth/Cert (Routine) Specialty Diagnoses / Procedures Referred By Jonah t Referred To Contact Behavioral Health [id number] [place] [address] Referral ID Status Reason Start Date Expiration Date Visits Re quested Visits Authorized [id number] 1 1 Encounter Details Date Type Department Care Team (Latest Contact Info) Description 07/29/2023 8:50 AM CROP PULLER - 07/29/2023 11:59 PM [facility] Hospital Encounter [facility]al Health Program Services [phone] [phone] [place] [address] Marsha Mcgowan, BOILERMAKER ASSEMBLY AND ERECTION [address] [place] [address] Moderate episode of recurrent [...] Progress Notes * Katherine Small MD - 07/29/2023 9:00 AM CST [facility] PROGRESS NOTE This note was generated with [employer] voice recognition software and may contain unintended recruitment manager errors. PATIENT: Wily W Cauble AGE: 67 y.o. CSN: [id number] Date of : 1955 Service date: 07/29/2023 ASSESSMENT DIAGNOSIS: Moderate episode of recurrent major depressive disorder Principal Problem: Moderate episode of recurrent major depressive disorder Additional Problems: Past Medical History: Diagnosis Date Dementia Depression Diabetes mellitus Essential hypertension TBI (traumatic brain injury) SUBJECTIVE Chief Complaint: Not bad. Interval History of Present Illness: The medical record reflects the history of present illness as obtained by myself in discussion withthe patient. I reviewed the chart, discussed patient???s care with the treatment team and interviewed the patient. The patient currently endorses or displays the following: Patient is calm and cooperative during the interview. He reported moderate depression, no hopelessness, no suicidal homicidal ideation. He has mild anxiety, no panic feeling. He reported of occasional mildly irritable feeling,no agitation or aggression. Pt denied auditory or visual hallucination. No sign of responding to internal stimuli. Did not exhibit paranoia or delusion. No agitation or aggression. Patient did not show inflated self-esteem or grandiosity, no decreased need for sleep. No talkative than usual or pressured speech. No flight of ideas or racing thought. Attention is fair. No high risk behaviors. He reported fair sleep and appetite. Self Report with 10 as the worst: Anxiety: 4/10 Depression: 6-7/10 Anger/Irritability: 5/10 Adherence to medication: yes Side effects noted [...] Prior to Encounter Medication Sig Dispense Refill venlafaxine (EFFEXOR) 50 mg tablet Take 1 Tablet (50 mg) by mouth 3 times daily for 7 days, THEN 0.5 Tablets (25 mg) 3 times daily for 7 days, THEN 0.5 Tablets (25 mg) 2 times daily for 7 days, THEN 0.5 Tablets (25 mg) daily for 7 days. 42 Tablet 0 PARoxetine HCl (PAXIL) 20 mg tablet Take [...] time Behavior: cooperative Psychomotor: no agitation or retardation, he reported of occasional irritable feeling. Attitude: cooperative Eye Contact: Fair Speech: normal rate/rhythm/volume/prosody Language: fluent, free of aphasia and paraphasic errors Thought Process: linear and goal directed Thought Content: Negative for thoughts. No delusions verbalized Suicidal ideation: No suicidal ideation or plan. Homicidal ideation: No homicidal ideation or plan. Perception: denied auditory or visual hallucinations; no obvious reaction to internal stimuli Associations: intact Mood: Depressed. Affect: mood congruent. In constricted range. Not reactive. Insight: Limited Judgment: Limited. Attention/Concentration: focused and able to attend to [...] Duration of face to face visit w/patient: 20 minutes. PULLER * Suman Akhtar, [facility] - 07/29/2023 9:00 AM CST [facility] Group Note Date: 07/29/2023 Time of Session: Start Time: 9:00 End [...] as 8/10 level of anxiety as 6/10 5-6 hours [...] symptoms in the last 24 hours: deep breathing. Wily identified the following treatment goal/plan for today keep improving. Pt stated Thursday was rough. His wanted more decorations up outside and the pt didn't want to but went ahead. Pt experienced frustration and started yelling so his told him to stop which he did until a later time. Pt stated that did help. Pt is working on pausing and deep breathing when he starts becoming angry. PULLER * Rosalba Merritt LCSW - 07/29/2023 9:00 AM CST [facility] Group Note Date: 07/29/2023 Time of Session: Start Time: 10:05 End Time: 11:05 Number of group members present in group: 5 Process Group Topic: Illness Management Observation/Assessment: At this session, Wily's cognition is noted to be Alert Wily's appearance is noted to be appropriately dressed for weather/season Wily's eye contact is noted to be Good Wily's speech is noted to be clear Wily's thoughts are noted to be appropriate and within normal limits Wily's mood is noted to be appropriate and congruent Wily's affect is noted to be congruent [...] mental health Interventions: Clinician led a group on review of diary card and discussed DBT skills/coping skills. Group discussion included review of any significant situations/events, summary of moods and summary of DBT skills/coping skills used or that could have been used and summary of outcome since last day patient attended group. Patient Response: Wily responded to group topic by sharing his goal as to keep improving. He states that he is in a rut and making some progress and feeling like group is really helping him and holding him accountable. He spoke about trying to put a [place] decoration together last night that gave him some trouble and he stepped away to manage his anger which he felt good about and ended up getting the item set up. He feels like he used the STOP skill. Time of Session: Start Time: 11:10 End Time: 12:10 Number of group members present in group: 6 Process Group Topic: Willingness/Willfulness and Pleasant Events/Positive Experiences Observation/Assessment: At this session, Wily's cognition is noted to be Alert Wily's appearance is noted to be appropriately dressed for weather/season Wily's eye contact is noted to be Good Wily's speech is noted to be clear Wily's thoughts are noted to be appropriate and within normal limits Wily's mood is noted to be appropriate and congruent Wily's affect is noted to be congruent [...] work on mental health Interventions: Clinician provided a handout explaining Willingness and Willfulness which the group reviewed and discussed. Group members also identified what they consider to be their Pleasant Eventsthat could encourage positive experiences. Patient Response: Wily responded to group topic by helping to read from the handout. He said he does not use [employer] and often thinks about the universe and the trees and finds comfort and pleasant events in those things in nature like geese flying overhead and leaves, deer and nature. PULLER documented in this encounter Plan of Treatment Not on file documented as of this encounter Visit Diagnoses Diagnosis Moderate episode of recurrent major depressive disorder- Primary documented in this encounter Additional Health Concerns Assessment Noted Time PHQ-9 Depression Total Score: 2 07/15/20 23 8:32 AM CDT documented as of this encounter
--- OUTSIDE RECORDS SUMMARY | 2024-09-03 08:01 | XMS_ITS | Encounter Summary ---
Author Organization [facility] Address [address] [place] [address] Care Team Providers Care Open Hearth Melter Name Role Phone Unavailable Primary Care Provider Unavailabl e Reason for Visit * Auth/Cert (Routine) Specialty Diagnoses / Procedures Referred By Jonah t Referred To Contact Behavioral Health [facility] Op Behavioral Health [address]g [phone] [place] [address] Referral ID Status Reason Start Date Expiration Date Visits Re quested Visits Authorized [id number] 1 1 Encounter Details Date Type Department Care Team (Latest Contact Info) Description 08/25/2023 9:00 AM TRENCHING MACHINE OPERATOR - 08/25/2023 11:59 PM [facility] Hospital Encounter [facility] Outpatient Behavioral Health Program Services [phone] [phone] [place] [address] Marsha Mcgowan, COIN BOX INSPECTOR [address] [place] [address] Discharge Disposition: Home or Self [...] this encounter Progress Notes * Suman Akhtar, DIRECTOR HARDWARE - 08/25/2023 9:00 AM CST [facility] Group Note Date: 08/25/2023 Time of Session: Start Time: 9:00 End [...] the current symptoms of anger or anger outbursts and depression Wily does not report suicidal thoughts or plans and does not report homicidal thoughts and plans Wily's level of group participation for this session was active/cooperative, attentive, and engaged Wily reported the following information: level of pain as 8/10 level of depression as 4/10 level of anger as 6/10 level of anxiety as 2/10 3-4 hours of sleep in the last [...] the following treatment goal/plan for today to continue my journey to recovery. Pt stated he has a good night last night. No anger issues. Time of Session: Start Time: 10:05 End Time: 11:05 Number of group members present in group: 7 Process Group Topic: identifying cognitive distortions Observation/Assessment: At this session, Wily's cognition is [...] active/cooperative, attentive, and engaged Interventions: Clinician facilitated identifying cognitive distortions Patient Response: Wily responded to group topic by stating he found out there will be days I can accomplish things when I get myself prepared to do so. Time of Session: Start Time: 11:10 End Time: 12:10 Number of group members present in group: 7 Process Group Topic: best possible self Observation/Assessment: At this session, Wily's cognition [...] and engaged Interventions: Clinician provided validation, rehearsed goal setting, rehearsed positive self-talk,rehearsed problem solving skills, rehearsed use of healthy communication skills, and use of motivational interviewing skills Patient Response: Wily responded to group topic by I think I can visualize but for me it takes a lot of effort and it can be exhausting to do sometimes . CHING MACHINE OPERATOR documented in this encounter Plan of Treatment Not on file documented as of this encounter Visit Diagnoses Not on filedocumented in this encounter Additional Health Concerns Assessment Noted Time PHQ-9 Depression Total Score: 2 08/24/20 4:00 PM TRENCHING MACHINE OPERATOR documented as of this encounter
--- OUTSIDE RECORDS SUMMARY | 2024-09-03 08:01 | XMS_ITS | Encounter Summary ---
Author Organization [facility] Address [address] [place] [address] Care Team Providers Care Studio Set Up Worker Name Role Phone Unavailable Primary Care Provider Unavailabl e Reason for Visit * Reason Onset Date Comments Follow Up 09/04/2023 Encounter Details Date Type Department Care Team (Late st Contact Info) Description 09/04/2023 Telephone [facility] Outpatient Behavioral Health Program Services [phone] [phone] [place] [address] Alison Ibrahim, AUTO BODY STRAIGHTENER Follow Up Social History Tobacco Use Types [...] Total Score: 2 08/24/20 23 4:00 PM CHIP SILO TENDER documented as of this encounter
--- OUTSIDE RECORDS SUMMARY | 2024-09-03 08:01 | XMS_ITS | Encounter Summary ---
Author Organization [facility] Address [address] [place] [address] Care Team Providers Care Heating And Air Conditioning Mechanic Name Role Phone Unavailable Primary Care Provider Unavailabl e Encounter Details Date Type Department Care Team (Late st Contact Info) Description 10/14/2023 External Device Data [facility] ABSTRACTION Provider, Abstract [...] Total Score: 1 09/08/20 23 1:00 PM GEAR MILLING MACHINE SET UP OPERATOR documented as of this encounter
--- OUTSIDE RECORDS SUMMARY | 2024-09-03 08:01 | XMS_ITS | Encounter Summary ---
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 The treatment team will develop a comprehensive plan, including both pharmacological and psychological approaches, as well as after-care plans. Therapist to establish outpatient psychiatric and medical follow-up care. Engage the patient in the therapeutic milieu of the group setting. Psychoeducation regarding diagnosis and treatment was provided. Medication plan: Continue current medications. Has OP psych appointment tomorrow. Will follow up todetermine medication needs/concerns while in IOP. We have extensively discussed with the patient medication, side effects, adverse events including but not limited to weight loss, weight gain, sedation, activation, and worsening of suicidal Ideationwith the start of medications. Supportive psychotherapy/motivational engagement was provided to foster recovery-oriented goals. I discussed with the patient the severity/complexity of their illness, which is intensive for outpatient treatment. On the day of the visit, I spent 47 minutes providing care to this patient including Preparing to see the patient, Obtaining and/or reviewing separately obtained history, Performing a medically appropriate examination and/or evaluation, Counseling and educating the patient/family/caregiver, Ordering medications, tests or procedures, Documenting clinical information in the medical record, Independently interpreting results and communicating results to the patient/family/caregiver (not separatelyreported), and Care coordination (not separately reported). AMY Ambrosio 07/15/2023 Cosigned by: Josh Rocha MD at 07/16/2023 7:47 AM SERVICES PROVIDED WHILE IN IOP Group therapy, case management, medication management, and follow-up planning provided DISCHARGE CRITERIA: Patient has met personal treatment goals. and Patient can function in all or most areas of life without symptom interference. CONDITIONS AT DISCHARGE: stable and gradually improving ASSESSMENTS: PHQ-9 5 upon discharge and 8 upon admission MONCHO-7 6 upon discharge and 7 upon admission AFTERCARE: Providers and appointments: Psychiatrist: Sinan Last [address], [place] [address] . Therapist: Joe Godfrey [facility] [address] [place] [address] 09/09/23 Primary Care Physician: No primary care provider on file. Johnathon Poncereuben with [facility] Last visit/physical: 07/20/23 Other: [employer] - [place] Hotline: [phone] Hotline Email: [email or web address] [address] [place] [address] Additional resources provided: N/a Staff Signature: Suman Akhtar LPC Date: 09/08/2023 Y LOOM CHAIN PEGGER Associated attestation - Marsha Mcgowan APRN - 10/04/2023 3:36 PM DOBBY LOOM CHAIN PEGGER This FLO has reviewed and approved current discharge plan as outlined in the therapist's note below. Patient's response with stabilization of symptoms was: [x]Good, []Fair, []Poor Discharge disposition: stable Medication Management: [] While in IOP patient was provided medication prescriptions and/or refills. Patient and family were provided with education regarding medication effects/side effects as well as potential risks/benefits to increase knowledge and understanding and to help ensure compliance following discharge. Medication and symptom monitoring will be transitioned to outpatient providers. [x] Patient did not have medication changes or refills during IOP Labs: [x] Patient did not have any labs obtained while in IOP. [] Patient did have labs evaluated and found to have: [] All values were normal [] Significant abnormal findings included: AMY Ambrosio documented in this encounter Discharge Instructions * Discharge Instructions* Suman Akhtar LPC - 09/08/2023 8:39 AM DOBBY LOOM CHAIN PEGGER Discharge Instructions Discharge Type: In-person discharge Current Outpatient Medications Medication Sig Dispense Refill PARoxetine HCl (PAXIL) [...] needed for Dizziness. No current facility-administered medications for this encounter. Follow Up Appointments: MD: Johnathon Braga with [facility] Last visit/physical: 07/20/23 Therapist: Joe God[facility] [address] [place] [id number] Psychiatrist: Sinan Last [address], [place] [address] Support group: Foster Jiang [facility] Hotline: [phone] Hotline Email: [email or web address] [address] [place] [address] Other recommendations, if applicable: Website Issues: [email or web address] If IOP services with [facility] can be assistance to you in the future, please call to discuss scheduling an assessment to return to the program. You can contact [phone] to begin this process. Alternately, you can go to [facility] for a walk-in assessment Thursday-Thursday from 05-19. You would enter the hospital through the main entrance and ask for the intake office. They will be able to give you directions to the intake office. When you get to the intake office, you will inform the staff thatyou would like to be assessed for IOP admission. Call your psychiatrist/Counselor Immediately if you or your Family Members observe signs of relapse: threats/thoughts of harm to self or others, Increase in anxiety or panic attacks, Increase in depression, Isolation or inactivity , decreased ability to function/cope, Impulsive or risky behavior Activity and Socialization: >Establish a daily routine that is realistic >Obtaining adequate rest and sleep >Follow your doctor's advice on the best exercise for you >Participate in leisure and recreational activities every week >Avoid alcohol and drugs >Assertively communicate your thoughts and feelings >Maintain contact with at least one person you can talk with >Speak positively about self, emphasizing your strengths Suicide Prevention/Crisis Hotlines [facility] Intake Department [phone] [facility] Department is professionally staffed and offers free, confidential evaluations for anyone needing assistance with a psychiatric, behavioral or addictive disorder. Evaluations, as well as referrals to physicians or community resources, are available 24 hours a day, 7 days a week. [facility] 791-230-HHYO (0855) [facility] is one of the nation???s [facility] suicide prevention and crisis hotlines. [facility] operates 24 hours a day, 7 days a week, 365 days a year. Behavioral Health Response ([facility]) [phone] (toll free) Behavioral Health Response ([facility]) is a professionally staffed crisis response service. [facility] provides expert behavioral health, crisis response, and outreach services, 24 hours a day, seven days a week to agencies and companies worldwide. National Suicide Prevention Hotline 0-614-136-TALK (8576) A free, 24-hour hotline available to anyone in suicidal crisis or emotional distress. Your call will be routed to the nearest crisis center to you. National [employer] Network 8-821-GPNMYXB KUT[facility] (Kids Under Twenty-One) Crisis Helpline 0-741-280-KUTO (0183) Youth staffed every day after 4pm DOBBY LOOM CHAIN PEGGER The [facility] Crisis Helpline is a confidential telephone hotline available to any youth who may be in need of assistance, referral information or crisis services. The [facility] Helpline is one of a handful ofhotlines staffed exclusively by youth volunteers. National [place] on Mental Illness ([facility]) 979.634.4579 [facility] Safety Plan Creation Date: 07/08/23 Last Update [...] provide distraction: Name Contact Information Nayana sy [phone] neighbors when outside mendez Mae [phone] mendez Estrada [phone] [address] home take a walk Step 4: People whom I can ask for help during a crisis: Name Contact Information my , Nayana [phone] Berta Mccain, daughter [phone] Step 5: Professionals or agencies I can contact during a crisis: Clinician/Agency Name Phone Emergency Contact Dr. Sinan Last [phone] Joe Godfrey, Counselor, [facility] [phone] Dr. Johnathon Braga [phone] Local Emergency Department Emergency Department Address Emergency Department Phone 911 [facility] [phone] Suicide Prevention Lifeline Phone: Call or Text 392 Crisis Text Line: Text HOME to 323732 Step 6: Making the environment safer (plan [...] Johnson. Used with permission of the authors. Y LOOM CHAIN PEGGER documented in this encounter Medications at Time [...] as of this encounter Progress Notes * Lissy Ramírez RN - 09/08/2023 12:38 PM CST RN met with pt. Pt denies current suicidal ideation, P stated they are ready for discharge and contracts to safety. RN recommended follow up appt with Family Practitioner to update on Pts physical and mental health. Y LOOM CHAIN PEGGER * Suman Akhtar LPC - 09/08/2023 9:00 AM CST [facility] Group Note Date: 09/08/2023 Time of Session: Start Time: 9:00 End [...] the following information: level of pain as 3/10 level of depression as 4/10 level of anger as 5/10 level of anxiety as 5/10 5-6 hours of sleep in the last [...] identified the following treatment goal/plan for today Stay on course. Pt stated he is ready for discharge. Pt reports a decrease in his anger. Time of Session: Start Time: 10:05 End Time: 11:05 Number of group members present in group: 7 Process Group Topic: symptom awareness for anxiety and symptom awareness for depression Observation/Assessment: At this session, Wily's cognition is [...] active/cooperative, attentive, and engaged Interventions: Clinician facilitated symptom identification, rehearsed problem solving skills, use of motivational interviewing skills, and validated feelings Patient Response: Wily responded to group topic by stating that he Managed to get some insight into a better understanding and how to get to a good grounding on myself. Pt was able to connect the roots of his problems to the symptoms and learn to better manage both of those things. Time of Session: Start Time: 11:10 End Time: 12:10 Number of group members present in group: 7 Process Group Topic: emotional regulation skills building Observation/Assessment: At this session, Wily's cognition is [...] and engaged Interventions: Clinician facilitated rehearsal of emotional regulation skills, provided reframing, provided validation, and use of motivational interviewing skills Patient Response: Wily responded to group topic by stating, I know now I can make inroads into mylife. Pt learned and practiced Urge Surfing and the STOP skill to manage his emotions and thoughtsin a healthy way. 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
--- OUTSIDE RECORDS SUMMARY | 2024-09-03 08:01 | XMS_ITS | Encounter Summary ---
Author Organization [facility] Address [address] [place] [address] Care Team Providers Care Panman Name Role Phone Unavailable Primary Care Provider Unavailabl e Encounter Details Date Type Department Care Team (Late st Contact Info) Description 02/09/2024 External Device Data STL ABSTRACTION Provider, Abstract [...] Total Score: 1 09/08/20 23 1:00 PM BEET END SUPERVISOR documented as of this encounter
--- OUTSIDE RECORDS SUMMARY | 2024-09-03 08:02 | XMS_ITS | Encounter Summary ---
Author Organization [facility] Address [address] [place] [address] Care Team Providers Care Feed Grinder Name Role Phone Unavailable Primary Care Provider Unavailabl e Reason for Visit * Auth/Cert (Routine) Specialty Diagnoses / Procedures Referred By Jonah t Referred To Contact Behavioral Health [facility] [address] [place] [address] Referral ID Status Reason Start Date Expiration Date Visits Re quested Visits Authorized [id number] 1 1 Encounter Details Date Type Department Care Team (Latest Contact Info) Description 07/24/2023 9:00 AM APPEALS NURSE - 07/24/2023 11:59 PM [facility] Hospital Encounter [facility] Outpatient Behavioral Health Program Services [address] [place] [address] Marsha Mcgowan, DIRECTOR EXPORT [address] [place] [address] Discharge Disposition: Home or Self [...] this encounter Progress Notes * Suman Akhtar, IMPORT/EXPORT ADMINISTRATOR - 07/24/2023 9:00 AM CST [facility] Group Note Date: 07/24/2023 Time of Session: Start Time: 9:00 End [...] pain as 6/10 level of depression as 6/10 level of anger as 4/10 level of anxiety as 4/10 5-6 hours [...] health symptoms in the last 24 hours: focused on self-care. Wily identified the following treatment goal/plan for today to improve everyday. Pt discussed how he thinks about his ex. He has talked with his and she assures him she isn't leaving him. Pt said he doesn't know why she stays with him. Pt became tearful and stated he is fearful of going to [facility]pc. Time of Session: Start Time: 10:10 End Time: 11:10 Number of group members present in group: 6 Process Group Topic: identifying cognitive distortions Observation/Assessment: [...] skills practiced , facilitated cognitive restructuring, and facilitated identifying cognitive distortions Patient Response: Wily responded to group topic by identifying his cognitive distortions and discussing how he can catch his automatic negative thoughts and change them to positive thoughts so he can improve his mood. Pt feels like he goes straight to anger and doesn't recognize his thoughts. Pt practiced with the group on thought changing. Time of Session: Start Time: 11:15 End Time: 12:15 Number of group members present in group: 6 Process Group Topic: dimensions of wellness Observation/Assessment: At this session, Wily's cognition is [...] engaged Interventions: Clinician facilitated processing goals regarding visualizing the future he wants in his personal. Professional and social life and use of motivational interviewing skills Patient Response: Wily responded to group topic by taking time to visualize his future. Pt sees nolonger struggling sexually and improved relationship with his . Pt sees himself free and much happier. ALS NURSE documented in this encounter Plan of Treatment Not on file documented as of this encounter Visit Diagnoses Not on filedocumented in this encounter Additional Health Concerns Assessment Noted Time PHQ-9 Depression Total Score: 2 07/15/20 23 8:32 AM CDT documented as of this encounter
--- OUTSIDE RECORDS SUMMARY | 2024-09-03 08:02 | XMS_ITS | Encounter Summary ---
Author Organization [facility] Address [address] [place] [address] Care Team Providers Care Licensed Therapist Name Role Phone Unavailable Primary Care Provider Unavailabl e Encounter Details Date Type Department Care Team (Late st Contact Info) Description 04/08/2023 Abstract [facility] Re[facility] [address] [place] [id number] Amelia Bright Social History Tobacco Use Types Packs/Day Years Used Date Smoking Tobacco: Never Assessed Sex and Gender Information Value Date Recorded Sex Assigned at Not on file Gender Identity Not on file Sexual Orientation Not on file documented as of this encounter Plan of Treatment Not on file documented as of this encounter Visit Diagnoses Not on filedocumented in this encounter
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
--- OUTSIDE RECORDS SUMMARY | 2024-09-03 08:02 | XMS_ITS | Encounter Summary ---
Author Organization [employer] [facility] Address [address] [place] [address] Care Team Providers Care Field Representative Name Role Phone Unavailable Primary Care Provider Unavailabl e Reason for Referral * Outpatient Services (Routine) - Closed Specialty Diagnoses / Procedures Referred By Jonah weber Referred To Contact MRI Diagnoses Vision loss Procedures [place] [address] [place] [address] Referral ID Status Reason Start Date Expiration Date V isits Requested Visits Authorized [id number] Closed [facility] CTS 12/03/2017 01/01/2018 1 1 Reason for Visit * Outpatient Services (Routine) - Closed Specialty Diagnoses / Procedures Referred By Jonah weber Referred To Contact MRI Diagnoses Vision loss Procedures [place] [address] [place] [id number] Referral ID Status Reason Start Date Expiration Date V isits Requested Visits Authorized [id number] Closed STL CTS 12/03/2017 01/01/2018 1 1 Encounter Details Date Type Department Care Team (Latest Contact Info) Description 12/08/2017 8:45 AM CDT - 12/08/2017 11:59 PM CDT Hospital Encounter Jessica MRI Joni [address] [address] [place] [address] [place] [address] Discharge Disposition: Home or Self Care Social History Tobacco Use Types Packs/Day Years Used Date Smoking Tobacco: Never Assessed Sex and Gender Information Value Date Recorded Sex Assigned at Not on file Gender Identity Not on file Sexual Orientation Not on file documented as of this encounter Miscellaneous Notes * Treatment Plan - Chetna Willson, RT - 12/08/2017 9:20 AM CDT IMAGING SERVICES- CT, MRI, and NUCLEAR MEDICINE MEDICATION and FLUSH PROTOCOL [facility] ORDERS ARE ENTERED ???PER PROTOCOL?? Enter the protocol in the patient???s electronic health record using AudioTrip: .imagingmedflushprotocol Communication Orders: o For ordered imaging procedures requiring intravenous access : ??? Initiate a peripheral IV, if not already in place, and discontinue IV prior to discharge (if outpatient). ??? Enter order if needed: Insert Peripheral IV Medication Orders: o Local Anesthetic for use to initiate IV ADULT ??? Lidocaine 4% (L.M.X.4) applied topically ONE TIME prior to IV catheter insertion PRN (L.M.X.4 %should be applied 15 minutes prior to procedure) PEDIATRIC ??? Lidocaine 4% (L.M.X.4) applied topically ONE TIME prior to IV catheter insertion PRN (apply 15 minutes prior to procedure) ??? Sucrose 24% (Tootsweet; Sweet-Ease) oral solution, 0.2mL given orally prior to IV catheter insertion (administer 1 - 2 minutes prior to procedure) o Sodium chloride 0.9% (normal saline) flush 10 mLs PRN for saline lock or medication administration. o For respiratory distress, initiate oxygen and/or increase O2 to maintain saturation greater than 90% Procedure Specific Medications: o Cystogram (CT Pelvis): Iopamidol (Isovue 300) 61%, diluted with 270mL of sterile NS. Mix solution of Isovue and NS in a sterile bowl. Clamp gill catheter prior to instilling solution via catheter. ??? Instill up to 300mL of Isovue and NS solution into bladder via catheter, one time. o Hepatobiliary scan with ejection fraction : For immediate use - Sincalide (Kinevac) 0.02 mcg/kg IV, one time, diluted with NS to a total infused volume of 30 mLs. Infuse via an infusion device over 30 minutes. o Thyroid cancer Thyrogen injections : Thyrotropin Eben (Thyrogen) 0.9 mg deep IM every 24 hours for two doses. o Renal scan with Lasix : Furosemide (Lasix) 1 mg/kg one time IV push over 2 minutes. Maximum dose of 40mg. o Renal scan with Enalapril : Enalapril (Vasotec) 0.04 mg/kg (maxium of 2.5mg) IV one time IV. Dilute to 5mL total volume with normal saline and infuse via infusion device over 5 minutes. o Lymphoscintigraphy : ??? Tc99m(Technetcium 99) 0.2mL filtered sulfur colloid with 0.2mL lidocaine 1% and 0.6mL sodium chloride. Give 500uCi (0.5mL) subcutaneously, in divided doses, ONE TIME at specified site(s). ??? Lidocaine 4% (L.M.X.4) applied topically ONE TIME PRN to the site(s) of injection (L.M.X.4 % should be applied 15 minutes prior to procedure). CT ORAL CONTRAST PROTOCOLS FOR ADULTS ??? Use Iohexol (Omnipaque) 240 mg/mL for CT scan unless patient has a documented allergy to contrast dye. ??? If allergy present, use Barium Sulfate (EZ Paque or Vanilla SILQ) for procedure. ??? If at any time the Day Care Home Provider has a question about which option to administer, seek clarification from a Radiologist. o Iohexol (Omnipaque) 240 mg/mL: 50ml added to 960mL of clear liquid of patients choice. Preferred route is oral. May use nasoenteric tube if needed. ??? Administer 900mL of the diluted Omnipaque 240, orally, one time only. o Barium Sulfate (EZ Paque /Vanilla Silq) 96% oral suspension: Preferred route is oral. May use nasoenteric tube if needed. ??? Administer 900mL of barium sulfate, orally, one time only. CT ORAL CONTRAST PROTOCOLS FOR PEDIATRICS Pediatrics = up to age 18 o Pediatric Radiologist will approve of one of the following products selected for procedure. ??? Barium Sulfate (EZ Paque /Vanilla Silq) 96% oral suspension: preferred route is oral. May use nasoenteric tube if needed. Cross[place] to 3 months Administer up to 90mL of Barium Sulfate, orally, one time only 4 months to 1 year old Administer up to 240mL of Barium sulfate , Orally, One Time Only 1 year old to 5 years old Administer up to 360mL of Barium sulfate , Orally, One Time Only 5 years old to 10 years old Administer up to 480mL of Barium sulfate , Orally, One Time Only Over 10 years old Administer up to 600mL of Barium sulfate , Orally, One Time Only ??? Iohexol (Omnipaque) 240 mg/mL oral solution ??? Dilute 25mL of iohexol with 480mL of clear liquid of patient???s choice. Administer the dilutedsolution per age as follows: Preferred route is orally. May use nasoenteric tube if needed. ??? Send any remaining diluted Iohexol solution with the pateint???s nurse to CT Administer 45mL of diluted Iohexol oral solution, orally every 30 minutes x 2 doses. 1 month to 1 year old Administer 120mL of diluted Iohexol oral solution, orally every 30 min x 2 doses. 1 year old to 5 years old Administer 180mL of Iohexol orally every 30 min x 2 doses. 5 years old to 10 years old Administer 240mL of Iohexol orally every 30 min x 2 doses. Over 10 years old Administer 300mL of Iohexol orally every 30 min x [address] IV CONTRAST PROTOCOLS ADULTS: (If patient is less than 55kg and confirm dose with radiologist) o Iopadmidol (Isovue-300): Administer 2.2mL/kg (to MAX of 125mL) of Iopamidol 61%, intravenously, one time only PEDIATRICS: Use weight based dosing if patient is less than 55kg and confirm dose with radiologist. [place] to 15 years old Administer 2.2mL/kg (to MAX of 80 mL) of Iopamidol (Isovue-300) 61%, intravenously, one time only 15 years old and older Administer 2.2mL/kg (to MAX of 125mL) of Iopamidol (Isovue-300) 61%, intravenously, one time only MRI IV CONTRAST PROTOCOLS ADULTS: o Multihance is used for most MRIs. For Liver studies, contact Radiologist to determine use of one of the following: Gadobenate Dimeglumine (Multihance) (0.1mmol/0.2mL), Administer 0.1mmol/kg = 0.2mL/kg up to MAX of 30mL, intravenously, one time only OR Gadoxetate (Eovist) 2.5 mmol/10mL, Administer 0.025mmol/kg = 0.1mL/kg MAX of 15mL, intravenously, one time only PEDIATRICS: o Radiologist to determine need for contrast Term neonates up to 2 years: Gadobutrol (Gadavist) 1mmol/mL injection, Administer 0.1mmol/kg = 0.1mL/kg up to MAX of 14mmol = 14mL, intravenously, one time only 2 years and older Gadobenate Dimeglumine (Multihance) (0.1mmol/0.2mL), Administer 0.1mmol/kg = 0.2mL/kg up to MAX of 20mL, intravenously, one time only \ Initiating Department(s): 09/2013 Nuclear Medicine and Pharmacy Reviewed: 06/2014 ,01/2016, 01/2017; 04/2017 Revised: 06/2014, 10/2016, 01/2017; 04/2017 Approved by: Medical Executive Committee, Imaging Services, and Pharmacy & Therapeutics Committee Date: 04/2017 documented in this encounter Plan of Treatment Not on file documented as of this encounter Procedures Procedure Name Priority Date/Time Associated Diagnosis Comments MRI BRAIN W WO CONTRAST Routine 12/08/2017 9:36 AM CDT Vision loss documented in this encounter Results * MRI BRAIN W WO CONTRAST (12/08/2017 9:36 AM CDT) Anatomical Region Laterality Modality Head Magnetic Resonan ce 12/08/2017 9:36 AM CDT Impressions 12/08/2017 4:47 PM CDT IMPRESSION: Nonspecific asymmetric thickening of the right greater wing of the sphenoid bone compared to the left. This can be further correlated with CT head without contrast. Narrative 12/08/2017 4:47 PM CDT EXAM: MRI BRAIN WITHOUT AND WITH IV CONTRAST DATE: 12/08/2017 9:36 AM INDICATION: Vision loss TECHNIQUE: Multiplanar and multisequence magnetic resonance images of the brain were obtained with and without intravenous gadolinium. FINDINGS: There is asymmetric thickening of the right greater wing of the sphenoid bone compared to the left, of uncertain significance. No abnormal enhancement identified. Brain parenchymal signal intensity is normal. Villagomez-white matter differentiation is normal. No diffusion restriction to suggest acute infarct is seen. No evidence of hemorrhage is seen on gradient sequence. The ventricular system is normal in size and configuration. Midline structures are not displaced. No abnormal enhancement is seen. No mass or mass effect is seen. Vascular flow-voids are normal. The paranasal sinuses and mastoid air cells are aerated. The calvarium has normal marrow signal intensity. Procedure Note Sally Meyer MD - 12/08/2017 EXAM: MRI BRAIN WITHOUT AND WITH IV CONTRAST DATE: 12/08/2017 9:36 AM INDICATION: Vision loss TECHNIQUE: Multiplanar and multisequence magnetic resonance images of the brain were obtained with and without intravenous gadolinium. FINDINGS: There is asymmetric thickening of the right greater wing of the sphenoid bone compared to the left, of uncertain significance. No abnormal enhancement identified. Brain parenchymal signal intensity is normal. Villagomez-white matter differentiation is normal. No diffusion restriction to suggest acute infarct is seen. No evidence of hemorrhage is seen on gradient sequence. The ventricular system is normal in size and configuration. Midline structures are not displaced. No abnormal enhancement is seen. No mass or mass effect is seen. Vascular flow-voids are normal. The paranasal sinuses and mastoid air cells are aerated. The calvarium has normal marrow signal intensity. IMPRESSION: Nonspecific asymmetric thickening of the right greater wing of the sphenoid bone compared to the left. This can be further correlated with CT head without contrast. Rosa Chow MD MR ORDERABLES documented in this encounter Visit Diagnoses Diagnosis Vision loss Unspecified visual loss documented in this encounter Administered Medications Inactive Administered Medications - up to 3 most recent administrations Medication Order MAR Action Action Date Dose Rate Site gadobenate dimeglumine (MULTIHANCE) 529 mg/mL (0.1mmol/0.2mL) injection 20 mL 20 mL, IV, INTRA-PROCEDURE ONCE, 1 dose, Starting on Tu12/08/17 at 0921, Until Tu12/08/17 at 0925, Routine Contrast Given 12/08/2017 9:25 AM CDT 20 mL documented in this encounter
--- OUTSIDE RECORDS SUMMARY | 2024-09-03 08:02 | XMS_ITS | Encounter Summary ---
Author Organization [facility] Address [address] [place] [address] Care Team Providers Care Cna Ltc Name Role Phone Unavailable Primary Care Provider Unavailabl e Reason for Visit * Reason Onset Date Comments Follow Up 07/13/2023 Encounter Details Date Type Department Care Team (Late st Contact Info) Description 07/13/2023 Telephone [facility] Outpatient Behavioral Health Adolescent Program Services [id number] [place] [address] Alison Ibrahim, TROUBLE DISPATCHER Follow Up Social History Tobacco Use Types Packs/Day Years Used Date Smoking Tobacco: Never Assessed Feeling Safe Answer Date Recorded Are you in a relationship wi th someone who hurts you emotionally and/or physically? No 07/02/2023 Sex and Gender Information Value Date Recorded Sex Assigned at Not on file Gender Identity Not on file Sexual Orientation Not on file documented as of this encounter Plan of Treatment Not on file documented as of this encounter Visit Diagnoses Not on filedocumented in this encounter
--- OUTSIDE RECORDS SUMMARY | 2024-09-03 08:02 | XMS_ITS | Encounter Summary ---
Author Organization [facility] Address [address] [place] [address] Care Team Providers Care Stock Hanger Name Role Phone Unavailable Primary Care Provider Unavailabl e Reason for Visit * Auth/Cert (Routine) Specialty Diagnoses / Procedures Referred By Jonah t Referred To Contact Behavioral Health [facility] Op Behavioral Health [place]g [address] [place] [address] Referral ID Status Reason Start Date Expiration Date Visits Re quested Visits Authorized [id number] 1 1 Encounter Details Date Type Department Care Team (Latest Contact Info) Description 07/23/2023 9:00 AM BUSINESS DEVELOPMENT RECRUITER - 07/23/2023 11:59 PM [facility] Hospital Encounter [facility] Outpatient Behavioral Health Program Services [address] [address] [place] [address] Marsha Mcgowan, WEB ANALYST [address] [place] [address] Discharge Disposition: Home or Self [...] this encounter Progress Notes * Suman Akhtar, SHREDDING MACHINE KNIFE CHANGER - 07/23/2023 9:00 AM CST JOAO ELIZONDO Group Note Date: 07/23/2023 Time of Session: Start Time: 9:00 End [...] Wily's thoughts are noted to be organized Iwly's mood is noted to be calm Wily's [...] pain as 6/10 level of depression as 5/10 level of anger as 4/10 level of anxiety as 4/10 7-8 hours of sleep in the last [...] following treatment goal/plan for today stay on course; had an anger blowup yesterday. Pt was putting up a [employer] decoration and the cord was stuck and he got very angry andyelled to where his neighbor came out to check on him. Pt stated his anger comes quickly and he doesn't feel it coming on. Pt was encouraged to work on pausing and recognizing his thoughts. Time of Session: Start Time: 10:10 End [...] Clinician explained and rehearsed coping skills targeting setting healthy boundariesand use of motivational interviewing skills Patient Response: Wily responded to group topic by working on understanding his boundaries and that he feels he has mostly porous boundaries with his and would like to improve them. Time of Session: Start Time: 11:15 End Time: 12:15 Number of group members present in group: 6 Process Group Topic: boundaries Observation/Assessment: At this [...] Clinician explained and rehearsed coping skills targeting setting healthy boundariesand use of motivational interviewing skills Patient Response: Wily responded to group topic by using the practice scenarios to learn to set healthy boundaries. Pt verbalized his answers and demonstrated an understanding of what healthy boundaries look like. NESS DEVELOPMENT RECRUITER documented in this encounter Plan of Treatment Not on file documented as of this encounter Visit Diagnoses Not on filedocumented in this encounter Additional Health Concerns Assessment Noted Time PHQ-9 Depression Total Score: 2 07/15/20 23 8:32 AM CDT documented as of this encounter
--- OUTSIDE RECORDS SUMMARY | 2024-09-03 08:02 | XMS_ITS | Encounter Summary ---
Author Organization [facility] Address [address] [place] [address] Care Team Providers Care Granite Cutter Apprentice Name Role Phone Unavailable Primary Care Provider Unavailabl e Reason for Visit * Reason Comments Establish Care Encounter Details Date Type Department Care Team (Late st Contact Info) Description 05/13/2023 11:30 AM CDT Office Visit [facility] Physical [facility] Re[facility] - [facility] [address] [place] [phone] [place] [address] [place] [phone] Traumatic brain injury with loss of consciousness, subsequent encounter (Primary Dx) Social History Tobacco Use Types Packs/Day Years Used Date Smoking Tobacco: Never Assessed Sex and Gender Information Value Date Recorded Sex Assigned at Not on file Gender Identity Not on file Sexual Orientation Not on file documented as of this encounter Last Filed Vital Signs Vital Sign Reading Time Taken Comments Blood Pressure 118/60 05/13/2023 11:27 AM CDT Pulse - - Temperature 36.3 ??C (97.4 ??F) 05/13/2023 11:27 AM C DT Respiratory Rate - - Oxygen Saturation - - Inhaled Oxygen Concentration - - Weight 99.8 kg (220 lb) 05/13/2023 11:27 AM CDT Height 180.3 cm (5' 11 ) 05/13/2023 11:27 AM CDT Body Mass Index 30.68 05/13/2023 11:27 AM CDT documented in this encounter Progress Notes * Sidney Cao DO - 05/13/2023 11:30 AM CDT [facility] Physical Medicine and Rehabilitation History and Physical Patient: Wily Bahena : 1955 Date of Service: 05/13/2023 Referring provider: [facility] Chief Complaint: Evaluation Subjective: HPI: Wily Bahena is a 67 y.o. year old male who presents today to establish care for his rehabilitation needs. Briefly, Wily Bahena suffered a traumatic brain injury on 03/23/2017. He passed out and fell backward, landing on the back of his head. He had a loss of consciousness of an unknown duration. There is a head laceration but he did not go to the emergency department get checked out. His also notes he did not report to anyone at work. Not long after the injury he started experiencing various symptoms related to his brain injury. Since that time, he has suffered a significant loss of memory with very poor short-term memory. He experiences extreme emotional lability with anger outbursts at little provocation. Patient reports he does not remember these outbursts when they occur. His ishere today who helps with much of the history. She reports a very frustrating time with the patientsince his injury. She says he was a very hurtful things to her and other family members. He will kick the dog. She says he talks like he has no filter. His also notes he will talk in his sleep including yelling out and shouting. He now sleeps on the couch in a different room. He has been seeing a counselor weekly for the last 4 years. The patient says it is helpful but he cannot remember during the times of emotional outbursts to employ in the tactics he is learning with his therapist. He is still driving. His says he will be driving and if someone cuts him off he will fly into a rage. She then says after these episodes he does not remember acting in such a manner. He sees a psychiatrist. He was recently seen by a dementia specialist. He had been seen by a neurologist but the neurologist is changing practice and will be able to see them anymore. They came todaythinking this was the neurology office. He has never undergone neuropsychological evaluation. He has done dementia testing twice. His is not sure any the medications he is on has been helpful. His most recently added medication is propranolol. This was back in March. He has not noticed any difference in the propranolol. Past Medical History: Diagnosis Date Essential hypertension Past Surgical History: Procedure Laterality Date HX HERNIA REPAIR Family History Problem Relation Name Age of Onset Liver Disease Father Cancer Mother Cancer Brother Social History Socioeconomic History Marital status: Spouse name: Not on file Number of children: Not on file Years of education: Not on file Highest education level: Not on file Occupational History Not on file Tobacco Use Smoking status: Not on file Smokeless tobacco: Not on file Substance and Sexual Activity Alcohol use: Not on file Drug use: Not on file Sexual activity: Not on file Other Topics Concern Not on file Social History Narrative Not on file Social Determinants of Health Financial Resource Strain: Not on file Food Insecurity: Not on file Transportation Needs: Not on file Social Connections: Not on file Intimate Partner Violence: Not on file Housing Stability: Not on file Home environment: Lives with his Current Outpatient Medications: donepeziL (ARICEPT) 10 mg tablet, Take 10 mg by mouth daily at bedtime., Disp: , Rfl: lamoTRIgine (LaMICtal) 100 mg tablet, Take 100 mg by mouth 2 times daily., Disp: , Rfl: atorvastatin (LIPITOR) 10 mg tablet, Take 10 mg by mouth daily., Disp: , Rfl: chlorthalidone (HYGROTON) 25 mg tablet, Take 25 mg by mouth daily., Disp: , Rfl: modafiniL (PROVIGIL) 200 mg Tablet, Take 200 mg by mouth daily in the morning., Disp: , Rfl: tamsulosin (FLOMAX) 0.4 mg capsule, Take 0.4 mg by mouth daily., Disp: , Rfl: metFORMIN (GLUCOPHAGE) 850 mg tablet, Take 850 mg by mouth daily., Disp: , Rfl: gabapentin (NEURONTIN) 600 mg tablet, Take 600 mg by mouth 3 times daily., Disp: , Rfl: omega-3 fatty acids-fish oil 300-1,000 mg Capsule, Take by mouth daily., Disp: , Rfl: CHOLECALCIFEROL, VITAMIN D3, ORAL, Take by mouth., Disp: , Rfl: cyanocobalamin 1,000 mcg Tablet, Take 1,000 mcg by mouth daily., Disp: , Rfl: mv-min/folic/K1/lycopen/lutein (CENTRUM SILVER MEN ORAL), Take by mouth., Disp: , Rfl: alpha lipoic acid 600 mg Tablet, Take by mouth., Disp: , Rfl: hydrOXYzine HCL (ATARAX) 50 mg tablet, Take 50 mg by mouth 3 times daily as needed for Itching., Disp: , Rfl: testosterone cypionate (DEPO-TESTOSTERONE) 200 mg/mL Oil, Inject 200 mg by intramuscular injection one time only., Disp: , Rfl: meclizine (ANTIVERT) 25 mg tablet, Take 25 mg by mouth 3 times daily as needed for Dizziness., Disp: , Rfl: venlafaxine (EFFEXOR) 75 mg tablet, Take 75 mg by mouth 3 times daily., Disp: , Rfl: allopurinoL (ZYLOPRIM) 300 mg tablet, Take 300 mg by mouth daily., Disp: , Rfl: propranoloL (INDERAL LA) 60 mg Long Acting 24 hour capsule, Take 60 mg by mouth daily., Disp: , Rfl: Review of Systems Constitutional: Negative. Gastrointestinal: Negative. Genitourinary: Negative. Musculoskeletal: Negative. Psychiatric/Behavioral: Positive for memory loss. The patient has insomnia. Anger, emotional lability Objective: PHYSICAL EXAM: BP 118/60 Temp 97.4 ??F (36.3 ??C) Ht 5' 11 (1.803 m) Wt 99.8 kg (220 lb) BMI 30.68 kg/m?? General:alert, no distress, and cooperative Lungs:normal respiratory effort Psyche: Patient displays an appropriate mood and affect. Gait: Smooth, stable with no assistive device Neuro: CN II-XII grossly intact. Speech is fluent and content is full. ASSESSMENT/PLAN: 67-year-old male who suffered a traumatic brain injury in 2017 with resultant personality changes and short-term memory loss No orders of the defined types were placed in this encounter. 1. TBI: Patient and spouse here looking for a neurologist. We spoke about his overall functional status and things his can do to cope with his extremely poor memory change personality following his brain injury. He has emotional lability in a very short fuse where he will fly into a rage and aslight provocation. Apparently the patient does not remember these episodes occur. This is concerning especially when he drives. His also mentioned that there are guns in the home. The guns are in a safe and I strongly recommend they either get rid of the guns or include trigger locks on each of the guns with the keys to the trigger locks held in a different location. Patient's spouse is suffering from extreme caregiver burden and caregiver burnout. She is worried about her upcoming cardiac procedure or she will be physically limited for short period of time. He needs to continue with counseling but his poor memory makes it hard to implement any sort of strategies to cope with frustrations. Continue to see psychiatry and dementia specialist. He may benefit from neuropsychological eval uation, but he has undergone dementia testing. Follow up: as needed Total time spent: 55 minutes. Greater than 50% was spent counseling and coordination of care. Electronically signed by: Sidney Cao DO Physical Medicine and Rehabilitation [phone] ATTESTATION STATEMENTS Portions of this note were transcribed using [employer] speaking computerized voice recognition without a human cupola liner helper. This report may or may not have been adjusted for typographical, grammatical and syntax errors or malapropisms.. documented in this encounter Plan of Treatment Not on file documented as of this encounter Visit Diagnoses Diagnosis Traumatic brain injury with loss of consciousness, subsequent encounter- Primary documented in this encounter
--- OUTSIDE RECORDS SUMMARY | 2024-09-03 08:02 | XMS_ITS | Clinical Summary ---
Author Organization [facility] Address [address] [address] Phone Care Team Providers Care Risk And Insurance Manager Name Role Phone Unavailable Primary Care Provider Unavailabl e Medications Medication Sig Dispensed Refills Start Date End Date Status aMILoride-hydroCHLOROt hiazide (MODURETIC 5-50) 5-50 MG tablet TAKE 1 TABLET BY MOUTH EVERY DAY 4 07/30/2017 Active sertraline (ZOLOFT) 100 MG tablet 06/06/2015 Active allopurinol (ZYLOPRIM) 300 MG tablet 04/25/2013 Active Active Problems Problem Noted Date Diagnosed Date Calculus of kidney 04/25/2013 Idiopathic gout 04/25/2013 Social History Tobacco Use Types Packs/Day Years Used Date Smoking Tobacco: Never Assessed Sex and Gender Information Value Date Recorded Sex Assigned at Not on file Gender Identity Not on file Sexual Orientation Not on file Last Filed Vital Signs Vital Sign Reading Time Taken Comments Blood Pressure 112/70 06/05/2014 12:01 AM CDT Pulse 72 06/05/2014 12:01 AM CDT Temperature 36.3 ??C (97.3 ??F) 06/05/2014 12:01 AM C DT Respiratory Rate - - Oxygen Saturation - - Inhaled Oxygen Concentration - - Weight 99.8 kg (220 lb) 06/05/2014 12:01 AM CDT Height 180.3 cm (5' 11 ) 06/05/2014 12:01 AM CDT Body Mass Index 30.68 06/05/2014 12:01 AM CDT Plan of Treatment Not on file
--- OUTSIDE RECORDS SUMMARY | 2024-09-03 08:02 | XMS_ITS | Encounter Summary ---
Author Organization [facility] Address [address] [place] [id number] Phone Care Team Providers Care Manager Study Name Role Phone Unavailable Primary Care Provider Unavailabl e Encounter Details Date Type Department Care Team (Late st Contact Info) Description 12/18/2013 Legacy Encounter - Labs [facility] [address] [place] [address] Seymour Gaffney MD [address] [facility] [place] [address] Social History Tobacco Use Types Packs/Day Years Used Date Smoking Tobacco: Never Assessed Sex and Gender Information Value Date Recorded Sex Assigned at Not on file Gender Identity Not on file Sexual Orientation Not on file documented as of this encounter Plan of Treatment Not on file documented as of this encounter Procedures Procedure Name Priority Date/Time Associated Diagnosis Comments SODIUM, URINE, 24 HOUR Routine 12/18/2013 9:00 AM CDT CREATININE, URINE, 24 HOUR Routine 12/18/2013 9:00 AM CDT URIC ACID, URINE, 24 HOUR Routine 12/18/2013 9:00 AM CDT documented in this encounter Results * Uric Acid (Urine) 24-Hour (12/18/2013 9:00 AM CDT) Urate, Urine 24.2 Not Estab. mg/dL EXTERNAL LAB Urate, 24 hour Urine 357.0 250.0 - 750.0 mg/24 hr EXTERNAL LAB 12/18/2013 9:00 AM CDT 12/19/2013 6:14 PM CDT Seymour Gaffney MD LAB URINE ORDERABLES Performing Organization Address [facility] de Phone Number EXTERNAL LAB * (ABNORMAL) Sodium, 24 Hr Urine (12/18/2013 9:00 AM CDT) Sodium, 24 hour Urine 175 Not Estab. mmol/L EXTERNAL LAB Sodium, 24 hour Urine 258(H) 40 - 220 mmol/24 hr EXTERNAL LAB 12/18/2013 9:00 AM CDT 12/19/2013 6:14 PM CDT Seymour Gaffney MD LAB URINE ORDERABLES Performing Organization Address [facility] de Phone Number EXTERNAL LAB * Creatinine, Urine (12/18/2013 9:00 AM CDT) Creatinine, Urine 86.4 22.0 - 328.0 mg/dL EXTERNAL LAB Creatinine, 24 hour Urine 1,274.4 1,000.0 - 2,000.0 mg/24 hr EXTERNAL LAB 12/18/2013 9:00 AM CDT 12/19/2013 6:14 PM CDT Seymour Gaffney MD LAB URINE ORDERABLES Performing Organization Address [facility] de Phone Number EXTERNAL LAB documented in this encounter Visit Diagnoses Not on filedocumented in this encounter
--- OUTSIDE RECORDS SUMMARY | 2024-09-03 08:02 | XMS_ITS | Encounter Summary ---
Author Organization [facility] Address [address] [facility] Attn: Epic Prelude ADT [facility] [place] [address] Care Team Providers Care Envelope Folding Machine Adjuster Name Role Phone Unavailable Primary Care Provider Unavailabl e Encounter Details Date Type Department Care Team (Latest Contact Info) Description 07/02/2023 Travel Social History Tobacco Use Types Packs/Day [...]
--- OUTSIDE RECORDS SUMMARY | 2024-09-03 08:02 | XMS_ITS | Encounter Summary ---
Author Organization [facility] Address [address] [place] [address] Care Team Providers Care Watch Assembly Instructor Name Role Phone Unavailable Primary Care Provider Unavailabl e Reason for Visit * Auth/Cert (Routine) Specialty Diagnoses / Procedures Referred By Jonah t Referred To Contact Behavioral Health [facility] [address] [place] [address] Referral ID Status Reason Start Date Expiration Date Visits Re quested Visits Authorized [id number] 1 1 Encounter Details Date Type Department Care Team (Latest Contact Info) Description 07/15/2023 8:00 AM CDT - 07/15/2023 11:59 PM T Hospital Encounter [facility] Services [id number] [place] [address] Marsha Mcgowan, JIRA DEVELOPER [address] [place] [address] Discharge Disposition: Home or Self [...] Mass Index 30.4 07/15/2023 8:28 AM CDT documented in this encounter Medications at Time [...] as of this encounter Progress Notes * Preeti Martin RN - 07/15/2023 8:00 AM CDT Start/End Times: 0800 - 0840 Wily Bahena has been admitted to the IOP program today under the care of Marsha Mcgowan APRN. Wily Bahena has been oriented to the IOP unit and guidelines. Patient rights have been given and consents have been signed. Confidentiality and safety have been discussed and all questions havebeen answered. Vitals: 07/15/23 0828 BP: 125/74 Pulse: 76 Resp: 18 Temp: 98.4 ??F (36.9 ??C) SpO2: 97% Narrative: Wily was cooperative with IOP admission assessment, denies SI, HI, AVH. Stressors legalissues, hx of tbi, anxiety, depression, nightmare, causes irritability. Protective factors . Skills / Goals hoping to achieve from IOP wants help with mood. CHIEF COMPLAINT/STRESSORS: Chief Complaint & Precipitating Event CC/Precipitating Event: Pt reported he has experienced SI for the past couple days and this is the first time he has ever experienced SI (07/02/2023 11:25 PM) OUTCOME ASSESSMENT TOOLS: Wily Bahena has completed the following assessments: PHQ-9 and MONCHO PHQ-9 SCORE: PHQ-9 Questions Little interest or pleasure in doing things: 1 (07/15/2023 8:32 AM) Feeling down, depressed, or hopeless: 1 (07/15/2023 8:32 AM) Trouble falling or staying asleep, or sleeping too much: 1 (07/15/2023 8:32 AM) Feeling tired or having little energy: 1 (07/15/2023 8:32 AM) Poor appetite or overeatin (07/15/2023 8:32 AM) Feeling bad about yourself-or that you are a failure or have let yourself or your family down: 1 (07/15/2023 8:32 AM) Trouble concentrating on things, such as reading the newspaper or watching television: 1 (38:32 AM) Moving or speaking so slowly that other people could have noticed. Or the opposite-being so fidgetyor restless that you have been moving around a lot more than usual: 1 (07/15/2023 8:32 AM) Thoughts that you would be better off , or of hurting yourself in some way: 1 (07/15/2023 8:32 AM) PHQ-9 Total: 8 (07/15/2023 8:32 AM) If you checked off any problems, how difficult have these problems made it for you to do your work,take care of things at home, or get along with other people?: Somewhat difficult (07/15/2023 8:32 AM) MONCHO 7 SCORE: Anxiety Score: 7 (07/15/2023 8:32 AM) INITIAL ASSESSMENT Functional Screen HOME SERVICE CONSULTANT: Functional Screen: HOME SERVICE CONSULTANT Ambulation: independent (07/15/2023 8:32 AM) Transferring: independent (07/15/2023 8:32 AM) Toileting: independent (07/15/2023 8:32 AM) Bathing: independent (07/15/2023 8:32 AM) Dressing: independent (07/15/2023 8:32 AM) Eating: independent (07/15/2023 8:32 AM) Communication: understands/communicates w/o difficulty (07/15/2023 8:32 AM) Swallowing: swallows foods and liquids w/o difficulty (07/15/2023 8:32 AM) Pain: Pain Scales: No/denies pain (07/15/2023 8:32 AM) Mental Health (Cognitive/Perceptual) Behavior: Calm; Cooperative (07/15/2023 8:32 AM) Observed Emotional State: anxious (07/15/2023 8:32 AM) Verbalized Emotional State: anxiety (07/15/2023 8:32 AM) Speech: clear (07/15/2023 8:32 AM) Thought Processes: Logical (07/15/2023 8:32 AM) Social Judgement: Appropriate to situation (07/15/2023 8:32 AM) Appearance: Appears stated age; Good hygiene (07/15/2023 8:32 AM) Patient willing to transfer: No (07/07/2023 10:04 AM) Additional Assessments: no (07/15/2023 8:32 AM) C-SSRS Since Last Visit 1. Have you wished you were or wished you could go to sleep and not wake up?: No (07/15/2023 8:35 AM) Wish to be (Description): denies (07/08/2023 3:00 PM) 2. Have you actually had any thoughts of killing yourself?: No (07/15/2023 8:35 AM) Thoughts of killing yourself (Description): no (07/08/2023 3:00 PM) 3. Have you been thinking about how you might kill yourself? : No (07/08/2023 3:00 PM) 4. Have you had these thoughts and had some intention of acting on them?: No (07/08/2023 3:00 PM) 5. Have you started to work out or worked out the details of how to kill yourself? Do you intend tocarry out this plan?: No (07/08/2023 3:00 PM) 6. Have you ever done anything, started to do anything, or prepared to do anything to end your life?: No (07/15/2023 8:35 AM) Suicide Risk and Interventions: Low (07/07/2023 10:04 AM) Intensity of Ideation (Past Month) Most Severe Ideation Rating (Past Month): 4 (07/15/2023 8:35 AM) Most Severe Ideation Description (Past Month): when he was admitted to the ED and inpatient BH (07/15/2023 8:35 AM) How many times have you had these thoughts? (Past Month): Less than once a week (07/15/2023 8:35 AM) When you have the thoughts how long do they last? (Past Month): Fleeting, few seconds or minutes (07/15/2023 8:35 AM) Could/can you stop thinking about killing yourself or wanting to if you want to? (Past Month): Unable to control thoughts (07/15/2023 8:35 AM) Are there things - anyone or anything (e.g., family, confucianist, pain of ) - that stopped you from wanting to or acting on thoughts of committing suicide? (Past Month): Deterrents definitely did not stop you (07/15/2023 8:35 AM) Reasons for Ideation (Past Month): Mostly to end or stop the pain (You couldn't go on living with the pain or how you were feeling) (07/15/2023 8:35 AM) Depressive Symptoms: Depressive Symptoms Symptoms: No problems reported or observed (07/08/2023 3:00 PM) Onset of Current Symptoms: 5 or 6 years (07/15/2023 8:32 AM) Symptoms not addressed: Increased irritability (07/15/2023 8:32 AM) Describe: can get angry blows up (07/15/2023 8:32 AM) Anxiety Symptoms: Anxiety Symptoms Symptoms: Generalized (07/15/2023 8:32 AM) Onset of Current Symptoms: 6 to 7 years (07/15/2023 8:32 AM) Describe: restless, shakes (07/15/2023 8:32 AM) An Symptoms: Manic Symptoms Symptoms: No problems reported or observed (07/15/2023 8:32 AM) Onset of Current Symptoms: denies (07/15/2023 8:32 AM) Describe: none noted (07/15/2023 8:32 AM) Psychotic Symptoms: Psychotic Symptoms Hallucination Type: No problems reported or observed (07/15/2023 8:32 AM) Hallucinations (describe): denies (07/15/2023 8:32 AM) Onset of Current Symptoms: none noted (07/15/2023 8:32 AM) Delusion Type: No problems reported or observed (07/15/2023 8:32 AM) Delusions (describe): denies (07/15/2023 8:32 AM) Onset of Current Symptoms: none noted (07/15/2023 8:32 AM) Functional Screen: Functional Screen: HOME SERVICE CONSULTANT Ambulation: independent (07/15/2023 8:32 AM) Transferring: independent (07/15/2023 8:32 AM) Toileting: independent (07/15/2023 8:32 AM) Bathing: independent (07/15/2023 8:32 AM) Dressing: independent (07/15/2023 8:32 AM) Eating: independent (07/15/2023 8:32 AM) Communication: understands/communicates w/o difficulty (07/15/2023 8:32 AM) Swallowing: swallows foods and liquids w/o difficulty (07/15/2023 8:32 AM) Visual Needs/Hearing Needs: Visual WNL Sleep: Sleep Hours Night (6p-6a): 7 (trouble falling asleep, nightmares) (07/15/2023 8:32 AM) Additional Sleeping Concerns: has nightmares Behavioral Health Nutrition Unintentional weight loss/gain of 10lbs or more in last 3mo?: No (07/15/2023 8:38 AM) How much weight loss?: 12 pounds (07/03/2023 12:55 PM) Have you had a decrease in appetite/food intake?: No (07/15/2023 8:38 AM) Nutrition Risk Screen: No indicators present (07/15/2023 8:38 AM) Eating Disorder Behaviors?: No indicators present (07/15/2023 8:38 AM) Food Allergies?: No (07/15/2023 8:38 AM) Dental Problems?: No indicators present (07/15/2023 8:38 AM) Additional Assessments Performed: None indicated (07/15/2023 8:38 AM) Psychosocial: Living Situation/Arrangements Current Living Situation: One-story home (07/15/2023 8:31 AM) Living Arrangements: Lives with spouse/significant other (07/15/2023 8:31 AM) Employment Employment Status: Unemployed (07/03/2023 12:28 AM) Additional Employment Concerns/Needs: None Bullying Are you being bullied or bullying others: No (07/15/2023 8:33 AM) Days Missed From School/Work in Past Month Days Missed From School/Work in Past Month: 0 (retired) (07/15/2023 8:33 AM) Additional Psychosocial Concerns: None History of Abuse/Trauma: Abuse/Trauma Abuse/Trauma: No (07/03/2023 12:30 AM) Substance Use History/ Other Addictive Behaviors: Substances Substances: None (07/15/2023 8:27 AM) Any family history of substance abuse problems?: denies (07/15/2023 8:27 AM) Support System: Family/Support System Perceived burden on family/others : Yes (07/03/2023 12:33 AM) Responsibility to family/others : Yes (07/03/2023 12:33 AM) Do you have any pets: No (07/03/2023 12:33 AM) Supportive social network/family : Yes (07/03/2023 12:33 AM) Broomcorn Scraper(s) : Pt's , Nayana Bahena/[phone] (07/03/2023 12:33 AM) SUMMER signed: Yes (07/03/2023 12:34 AM) Support System: Pt's , Nayana Bahena/[phone] (07/03/2023 12:33 AM) Support System SUMMER Signed: No (07/03/2023 12:33 AM) Guardian Contact Information: Name: Phone Number: Current Outpatient Providers: PCP: Johnathon Braga with [facility] Last visit/physical: 06/08/23 ED 07/02/23. Has Appt with PCP Thursday07/20/2023 Therapist: Joe Godfrey Psychiatrist: Sinan Last Educational Needs: ADLs: Demonstrates Understanding Smoking Cessation: Demonstrates Understanding Medication Management: Demonstrates Understanding Exercise: Demonstrates Understanding * Suman Akhtar LPC - 07/15/2023 8:00 AM CDT [facility] IOP Group Note Date: 07/15/2023 Pt was not in first group due to being with providers. Time of Session: Start Time: 10:15 End Time: 11:15 Number of group members present in group: 5 Process Group Topic: relapse prevention for mental [...] insight and judgment are noted to be fair Wily presents with the current symptoms of anger or anger outbursts, anxiety, and depression Wily reports passive suicidal thoughts and no plans and does not report homicidal thoughts and plans Wily's level of group participation for this session was active/cooperative, attentive, and engaged Wily reported the following information: level of pain as 4/10 level of depression as 5/10 level of anger as 4/10 level of anxiety as 6/10 5-6 hours of sleep in the last 24 hours and Does not report feeling rested upon waking. Wily Reports medication compliance in the last 24 hours. Regarding substance use in the past 24 hours, Wily denies substance use or misuse. Interventions: Clinician provided education and feedback on the importance of self care , provided reframing, provided validation, and use of motivational interviewing skills Patient Response: Wily reports using the following healthy coping skills to manage mental health symptoms in the last 24 hours: distraction skills. Wily identified the following treatment goal/plan for today to be a lot better. Pt stated that his anger is off the chart. Pt said he yells at his family members and has been struggling with hisanger for about 10 years. Pt said he is dealing with the demons in his head and doesn't want tofight it anymore. Pt said right now he doesn't have a good outlook on anything but has a lot to live for. Pt reports not have any enjoyment for the last 20 years. Time of Session: Start Time: 11:20 End Time: 12:20 Number of group members present in group: 5 Process Group Topic: behavioral activation Observation/Assessment: At [...] attentive, and engaged Interventions: Clinician facilitated behavioral rehearsal and facilitated CBT skills practiced Patient Response: Wily responded to group topic by identifying some areas that he needs to take care of that are responsibilities and also some fun activities for him to reengage in. Pt understands this will help improve his mood and his relationships. documented in this encounter H&P Notes * Marsha Mcgowan, JIRA DEVELOPER - 07/15/2023 8:00 AM CDT [facility] INTENSIVE OUTPATIENT HISTORY AND PHYSICAL ADMISSION NOTE Patient's Name: Wily Bahena Start time: 819 End Time: 906 ADMISSION DATE: 07/15/2023 REASON FOR IOP ADMISSION: Recent hospitalization at [facility] for S.I., increased depressive symptoms in the context of psychosocial stressors. CHIEF COMPLAINT: I feel about the same. HISTORY OF PRESENT ILLNESS: The medical record reflects the history of present illness as obtained by myself in discussion with the patient. The patient is a 67 y.o., male who was admitted to [facility] psychiatric IOP I reviewed the Behavioral Health intake assessment [...] been caught before but he could serve fdc time for this or he may have [...] public places. They had to hire a director social welfare and be fine. On ie on 07/02 [...] with dementia. He sees Dr. Rodríguez at [facility]. He also has a psychiatrist Dr. Sinan Hanson [facility]. The psychiatrist was prescribing Provigil for ADHD.He [...] is ELLEN. He was recently released from [facility]. has concerns with managing his compulsive masturbating. [...] Wily is seeing a Dementia specialist at [facility] whom he met with initially in April. [...] [x] Initial insomnia [] Middle insomnia [] emergency department nurse awakenings [] Increased sleep [] Decreased need [...] (07/02/2023 11:23 PM) [x] Previous inpatient admissions: [facility] 06/2023 [] Previous suicide attempts: no [...] Swelling Past Medical History: Diagnosis Date Dementia Depression Diabetes mellitus Essential hypertension TBI (traumatic brain injury) Past Surgical History: Procedure Laterality Date HX [...] and family. Patient Strengths Good Intellectual Ability, Bee in ADL's, and Social Support System Patient [...] coordination (not separately reported). AMY Ambrosio 07/15/2023 documented in this encounter Miscellaneous Notes * Treatment Plan - Lisa Auguste LPC - 07/15/2023 8:00 AM CDT [facility] Introductory Note Start/end time: 1030/1100 with and 1145/1205 with Wily 07/15/2023 Lisa Auguste LPC met with Wily on 07/15/2023. Wily was located [facility] Wilyprovided verbal consent to care. Wily identified the following personal treatment goal: learn ways to control my behavior, by impulsiveness, and decrease depression so that I can have sang, peace and serenity again. While discussing the treatment goals, Wily identified the following areas that could possibly be worked on as objectives to help achieve the treatment goal: Learn tools to not be so impulsive, especially regarding his sexual urges Learn ways to manage anger so my isn't afraid of me Learn healthy ways to manage frustration, kaya. Regarding managing effects of TBI Introduced self to Wily and discussed IOP and group process, expectations, groups rules for privacy, the importance of participation and engagement in group, treatment and discharge planning, and answered questions. Client Resource Specialist identified primary sample case porter/therapist for Wily and provided contact inf ormation. Reviewed psychosocial information obtained during intake. hotel or motel manager and patient explored current issues, with patient identifying per pt, impulsive behaviors, anxiety symptoms, and depressive symptoms and anger as primary treatment issues to be addressed. hotel or motel manager and patient discussed having a resident care manager and suggested patient appoint someone if not already done. Discussed preliminary discharge plan to include follow-up with Psychiatrist and Therapist and that appointments needed to be established prior to discharge. Support and encouragement provided. Please refer to intake dated 07/03/23. Intake remains current including: impulsive behaviors, anxiety symptoms, and depressive symptoms and anger Intake remains current excluding:Suicidal Ideation Broomcorn Scraper: Wily has identified the following as his Broomcorn Scraper: Nayana Bahena (spouse) Contact number: [phone] Safety Plan: Lisa Auguste LPC met with Wily individually to assist him in completing a [employer] Patient Safety Plan Template. Wily expressed understanding as to benefit of safety plan and verbalized agreement to utilizing the safety plan for any future crisis. Support, education and encouragement provided. Pt and were provided 5 copies of safety plan. Pt will keep a copy. will keep a copy and provide other copies to Wily's other providers. List of crisis and hotline calls were also provided. [employer] Safety Plan Creation Date: 07/08/23 Last Update [...] provide distraction: Name Contact Information Nayana sy [phone] neighbors when outside mendez Mae [phone] mendez Estrada [phone] [address] home take a walk Step 4: People whom I can ask for help during a crisis: Name Contact Information my , Nayana [phone] Berta Mccain, daughter [phone] Step 5: Professionals or agencies I can contact during a crisis: Clinician/Agency Name Phone Emergency Contact Dr. Sinan Last [phone] Joe Godfrey, Counselor, [facility] [phone] Dr. Johnathon Braga [phone] Local Emergency Department Emergency Department Address Emergency Department Phone [facility] [phone] Suicide Prevention Lifeline Phone: Call or Text 281 Crisis Text Line: Text HOME to 625028 Step 6: Making the environment safer (plan [...] Johnson. Used with permission of the authors. TY PROBATION OFFICER Associated attestation - Marsha Mcgowan APRN - 07/25/2023 10:32 AM DEPUTY PROBATION OFFICER I have reviewed and discussed with treatment team and agree with the major portions of the treatment plan/ note. documented in this encounter Plan of Treatment Not on file documented as of this encounter Visit Diagnoses Not on filedocumented in this encounter Additional Health Concerns Assessment Noted Time PHQ-9 Depression Total Score: 2 07/15/20 23 8:32 AM CDT documented as of this encounter
--- OUTSIDE RECORDS SUMMARY | 2024-09-03 08:02 | XMS_ITS | Encounter Summary ---
Author Organization [facility] Address [address] [place] [id number] Phone Care Team Providers Care Manager Equity Name Role Phone Unavailable Primary Care Provider Unavailabl e Encounter Details Date Type Department Care Team (Late st Contact Info) Description 12/13/2013 Legacy Encounter - Labs [facility] [address] [place] [address] Seymour Gaffney MD [address] [place] [address] [facility] [place] [address] Social History Tobacco Use Types Packs/Day Years Used Date Smoking Tobacco: Never Assessed Sex and Gender Information Value Date Recorded Sex Assigned at Not on file Gender Identity Not on file Sexual Orientation Not on file documented as of this encounter Plan of Treatment Not on file documented as of this encounter Procedures Procedure Name Priority Date/Time Associated Diagnosis Comments RENAL FUNCTION PANEL (RFP) Routine 12/13/2013 10:00 AM CDT URINALYSIS, ROUTINE Routine 12/13/2013 1 0:00 AM CDT URIC ACID, SERUM Routine 12/13/2013 10:0 0 AM CDT documented in this encounter Results * Uric Acid (12/13/2013 10:00 AM CDT) Urate, Serum/Plasma 6.6 3.7 - 8.6 mg/dL EXTERNAL LAB Comment:Therapeutic target f or gout patients: <6.0 12/13/2013 10:0 0 AM CDT 12/13/2013 2:25 PM CDT Seymour Gaffney MD LAB BLOOD ORDERABLES Performing Organization Address [facility] Co de Phone Number EXTERNAL LAB * (ABNORMAL) Renal Function Panel (12/13/2013 10:00 AM CDT) Glucose, Serum/Plasma 103(H) 65 - 99 mg/dL EXTERNAL LAB Urea nitrogen, Serum/Plasma (BUN) 19 6 - 24 mg/dL EXTERNAL LAB Creatinine, Serum/Plasma 1.04 0.76 - 1.27 mg/dL EXTERNAL LAB eGFR, non 80 >59 mL/min/1.7 3 EXTERNAL LAB eGFR, 92 >59 mL/min/1.7 3 EXTERNAL LAB Urea nitrogen/Creati nine, Serum/Plasma 18 9 - 20 EXTERNAL LAB Sodium, Serum/Plasma 141 134 - 144 mmol/L EXTERNAL LAB Potassium, Serum/Plasma 3.9 3.5 - 5.2 mmol/L EXTERNAL LAB Chloride, Serum/Plasma 100 97 - 108 mmol/L EXTERNAL LAB Carbon dioxide CO2), total, Serum/Plasma 26 19 - 28 mmol/L EXTERNAL LAB Calcium, Serum/Plasma 9.3 8.7 - 10.2 mg/dL EXTERNAL LAB Phosphate, Serum/Plasma 2.8 2.5 - 4.5 mg/dL EXTERNAL LAB Albumin, Serum/Plasma 4.4 3.5 - 5.5 g/dL EXTERNAL LAB 12/13/2013 10:0 0 AM CDT 12/13/2013 2:25 PM CDT Seymour Gaffney MD LAB BLOOD ORDERABLES Performing Organization Address [facility] de Phone Number EXTERNAL LAB * Urinalysis, Routine (12/13/2013 10:00 AM CDT) Specific gravity of Urine 1.021 1.005 - 1.030 EXTERNAL LAB pH of Urine 6.0 5.0 - 7.5 EXTERNAL LAB Color of Urine Yellow Yellow EXTERNAL LAB Appearance of Urine Clear Clear EXTERNAL LAB Leukocyte esterase, Urine Negative Negative EXTERNAL LAB Protein, Urine Negative Negative/Tra ce EXTERNAL LAB Glucose, Urine Negative Negative EXTERNAL LAB Chloride, Urine CANCELED EXTERNAL LAB Comment:Result canceled by t he ancillary. Ketones, Urine Negative Negative EXTERNAL LAB Hemoglobin, Urine Negative Negative EXTERNAL LAB Bilirubin, total, Urine Negative Negative EXTERNAL LAB Urobilinogen, Urine 0.2 0.0 - 1.9 mg/dL EXTERNAL LAB Nitrite, Urine Negative Negative EXTERNAL LAB Microscopic observation, Urine sediment EXTERNAL LAB Comment:Microscopic follows if indicated. 12/13/2013 10:0 0 AM CDT 12/13/2013 2:25 PM CDT Seymour Gaffney MD LAB URINE ORDERABLES EXTERNAL LAB documented in this encounter Visit Diagnoses Not on filedocumented in this encounter
--- OUTSIDE RECORDS SUMMARY | 2024-09-03 08:02 | XMS_ITS | Encounter Summary ---
Author Organization [facility] Address [address] [facility] Attn: Epic Prelude ADT YADIRA TRAVIS [address] Care Team Providers Care Engineering Vice President Name Role Phone Unavailable Primary Care Provider Unavailabl e Encounter Details Date Type Department Care Team (Latest Contact Info) Description 07/15/2023 Travel Social History Tobacco Use Types Packs/Day [...]
--- OUTSIDE RECORDS SUMMARY | 2024-09-03 08:02 | XMS_ITS | Encounter Summary ---
Author Organization [facility] Address [address] [place] [phone] Phone Care Team Providers Care Machining Technician Name Role Phone Unavailable Primary Care Provider Unavailabl e Encounter Details Date Type Department Care Team (Late st Contact Info) Description 06/04/2015 Legacy Encounter - Labs HISTORICAL CONVERSION CENTRAL [address] [place] [address] Seymour Gaffney MD [address] [facility], [address] [facility] [place] [address] Social History Tobacco Use Types Packs/Day Years Used Date Smoking Tobacco: Never Assessed Sex and Gender Information Value Date Recorded Sex Assigned at Not on file Gender Identity Not on file Sexual Orientation Not on file documented as of this encounter Plan of Treatment Not on file documented as of this encounter Procedures Procedure Name Priority Date/Time Associated Diagnosis Comments CREAT U+PHOS U Routine 06/04/2015 8:37 AM CDT UREA NITROGEN (UUN), URINE, 24 HOUR Routine 06/04/2015 8:37 AM CDT MAGNESIUM, URINE Routine 06/04/2015 8:37 AM CDT CITRIC ACID, URINE, 24 HOUR Routine 06/04/2015 8:37 AM CDT SODIUM, URINE, 24 HOUR Routine 06/04/2015 8:37 AM CDT RENAL FUNCTION PANEL (RFP) Routine 06/04/2015 8:37 AM CDT URIC ACID, SERUM Routine 06/04/2015 8:37 AM CDT TOTAL PROTEIN W/ CREATININE, URINE, 24 HOUR Routine 06/04/2015 8:37 AM CDT URIC ACID, URINE, 24 HOUR Routine 06/04/2015 8:37 AM CDT CALCIUM, URINE, 24 HOUR Routine 06/04/2015 8:37 AM CDT OXALATE, URINE, 24 HOUR Routine 06/04/2015 8:37 AM CDT documented in this encounter Results * Uric Acid (06/04/2015 8:37 AM CDT) Urate, Serum/Plasma 5.7 3.7 - 8.6 mg/dL EXTERNAL LAB Comment:Therapeutic target f or gout patients: <6.0 06/04/2015 8:37 AM CDT 06/04/2015 12:47 PM CDT Seymour Gaffney MD LAB BLOOD ORDERABLES EXTERNAL LAB * (ABNORMAL) Citric Acid (Citrate), 24 Hour, Urine (06/04/2015 8:37 AM CDT) Citrate, Urine 150 Undefined mg/L EXTERNAL L AB Citrate, 24 hour Urine 45(L) 320 - 1,240 mg/24 hr EXTERNAL LAB 06/04/2015 8:37 AM CDT 06/04/2015 12:47 PM CDT Seymour Gaffney MD LAB URINE ORDERABLES EXTERNAL LAB * (ABNORMAL) Oxalate (Urine) 24-Hour (06/04/2015 8:37 AM CDT) Oxalate, Urine 19 Undefined mg/L EXTERNAL L AB Oxalate, 24 hour Urine 6(L) 7 - 44 mg/24 hr EXTERNAL LAB 06/04/2015 8:37 AM CDT 06/04/2015 12:47 PM CDT Narrative Authorizing Provider Result Murray Gaffney MD LAB URINE ORDERABLES Performing Organization Address [facility] de Phone Number EXTERNAL LAB * (ABNORMAL) Urea Nitrogen, 24-Hour Urine (06/04/2015 8:37 AM CDT) Urea nitrogen, 24 hour Urine (UUN) 483 Not Estab. mg/dL EXTERNAL LAB Urea nitrogen, 24 hour Urine (UUN) 1(L) 12 - 20 g/24 hr EXTERNAL LAB 06/04/2015 8:37 AM CDT 06/04/2015 12:47 PM CDT Seymour Gaffney MD LAB URINE ORDERABLES Performing Organization Address [facility] Phone Number EXTERNAL LAB * (ABNORMAL) Uric Acid (Urine) 24-Hour (06/04/2015 8:37 AM CDT) Urate, Urine 21.5 Not Estab. mg/dL EXTERNAL LAB Urate, 24 hour Urine 64.5(L) 250.0 - 750.0 mg/24 hr EXTERNAL LAB 06/04/2015 8:37 AM CDT 06/04/2015 12:47 PM CDT Narrative Authorizing Provider Result Murray Gaffney MD LAB URINE ORDERABLES Performing Organization Address [facility] de Phone Number EXTERNAL LAB * Magnesium, Urine (24-Hour) (06/04/2015 8:37 AM CDT) Magnesium, Urine 5.9 Not Estab. mg/dL EXTERNAL LAB Comment:Detection Limit = 0. 1 Magnesium, 24 hour Urine 17.7 12.0 - 293.0 mg/24 hr EXTERNAL LAB 06/04/2015 8:37 AM CDT 06/04/2015 12:47 PM CDT Narrative Authorizing Provider Result Murray Gaffney MD LAB URINE ORDERABLES Performing Organization Address [facility] de Phone Number EXTERNAL LAB * (ABNORMAL) Total Protein w/ Creatinine, 24 Hr Urine (06/04/2015 8:37 AM CDT) Protein, Urine 6.5 0.0 - 15.0 mg/dL EXTERNAL LAB Protein, 24 hour Urine 19.5(L) 30.0 - 150.0 mg/24 hr EXTERNAL LAB 06/04/2015 8:37 AM CDT 06/04/2015 12:47 PM CDT Narrative Authorizing Provider Result Murray Gaffney MD LAB URINE ORDERABLES Performing Organization Address [facility] de Phone Number EXTERNAL LAB * (ABNORMAL) Calcium (Urine) 24-Hour (06/04/2015 8:37 AM CDT) Calcium, 24 hour Urine 12.0 Not Estab. mg/dL EXTERNAL LAB Calcium, 24 hour Urine 36.0(L) 100.0 - 300.0 mg/24 hr EXTERNAL LAB 06/04/2015 8:37 AM CDT 06/04/2015 12:47 PM CDT Narrative Authorizing Provider Result Murray Gaffney MD LAB BLOOD ORDERABLES Performing Organization Address [facility] de Phone Number EXTERNAL LAB * (ABNORMAL) Sodium, 24 Hr Urine (06/04/2015 8:37 AM CDT) Sodium, 24 hour Urine 69 Not Estab. mmol/L EXTERNAL LAB Sodium, 24 hour Urine 21(L) 40 - 220 mmol/24 hr EXTERNAL LAB 06/04/2015 8:37 AM CDT 06/04/2015 12:47 PM CDT Narrative Authorizing Provider Result Murray Gaffney MD LAB URINE ORDERABLES Performing Organization Address [facility] de Phone Number EXTERNAL LAB * (ABNORMAL) Renal Function Panel (06/04/2015 8:37 AM CDT) Glucose, Serum/Plasma 109(H) 65 - 99 mg/dL EXTERNAL LAB Urea nitrogen, Serum/Plasma (BUN) 15 6 - 24 mg/dL EXTERNAL LAB Creatinine, Serum/Plasma 0.89 0.76 - 1.27 mg/dL EXTERNAL LAB eGFR, non 95 >59 mL/min/1.7 3 EXTERNAL LAB eGFR, 110 >59 mL/min/1.7 3 EXTERNAL LAB Urea nitrogen/Creati nine, Serum/Plasma 17 9 - 20 EXTERNAL LAB Sodium, Serum/Plasma 142 134 - 144 mmol/L EXTERNAL LAB Potassium, Serum/Plasma 4.2 3.5 - 5.2 mmol/L EXTERNAL LAB Chloride, Serum/Plasma 102 97 - 108 mmol/L EXTERNAL LAB Carbon dioxide CO2), total, Serum/Plasma 23 18 - 29 mmol/L EXTERNAL LAB Calcium, Serum/Plasma 9.1 8.7 - 10.2 mg/dL EXTERNAL LAB Phosphate, Serum/Plasma 2.2(L) 2.5 - 4.5 mg/dL EXTERNAL LAB Albumin, Serum/Plasma 4.3 3.5 - 5.5 g/dL EXTERNAL LAB 06/04/2015 8:37 AM CDT 06/04/2015 12:47 PM CDT Seymour Gaffney MD LAB BLOOD ORDERABLES EXTERNAL LAB * (ABNORMAL) Creat U+Phos U (06/04/2015 8:37 AM CDT) Creatinine, Urine 63.5 22.0 - 328.0 mg/dL EXTERNAL LAB Creatinine, 24 hour Urine 190.5(L) 1,000.0 - 2,000.0 mg/24 hr EXTERNAL LAB Phosphate, Urine 31.3 Not Estab. mg/dL EXTERNAL LAB Phosphate, 24 hour Urine 93.9(L) 400.0 - 1,300.0 mg/24 hr EXTERNAL LAB 06/04/2015 8:37 AM CDT 06/04/2015 12:47 PM CDT Seymour Gaffney MD LAB BLOOD ORDERABLES EXTERNAL LAB documented in this encounter Visit Diagnoses Not on filedocumented in this encounter
--- OUTSIDE RECORDS SUMMARY | 2024-09-03 08:02 | XMS_ITS | Encounter Summary ---
Author Organization [facility] Address [address] [place] [address] Phone Care Team Providers Care Hand Coke Drawer Name Role Phone Unavailable Primary Care Provider Unavailabl e Encounter Details Date Type Department Care Team (Late st Contact Info) Description 07/06/2013 Legacy Encounter - Labs HISTORICAL CONVERSION CENTRAL [address] [place] [address] Seymour Gaffney MD [address] [facility], [address] [place] [address] Social History Tobacco Use Types Packs/Day Years [...] Diagnosis Comments RENAL FUNCTION PANEL (RFP) Routine 07/06/2013 9:35 AM CDT URIC ACID, SERUM Routine 07/06/2013 9:35 AM CDT documented in this encounter Results * Uric Acid (07/06/2013 9:35 AM CDT) Urate, Serum/Plasma 5.1 3.7 - 8.6 mg/dL EXTERNAL LAB Comment:Therapeutic target f or gout patients: <6.0 07/06/2013 9:35 AM CDT 07/06/2013 12:39 PM CDT Seymour Gaffney MD LAB BLOOD ORDERABLES EXTERNAL LAB * Renal Function Panel (07/06/2013 9:35 AM CDT) Glucose, Serum/Plasma 99 65 - 99 mg/dL EXTERNAL LAB Urea nitrogen, Serum/Plasma (BUN) 18 6 - 24 mg/dL EXTERNAL LAB Creatinine, Serum/Plasma 0.93 0.76 - 1.27 mg/dL EXTERNAL LAB eGFR, non 92 >59 mL/min/1.73 EXTERNAL LAB eGFR, 106 >59 mL/min/1.73 EXTERNAL LAB Urea nitrogen/Creati nine, Serum/Plasma 19 9 - 20 EXTERNAL LAB Sodium, Serum/Plasma 142 134 - 144 mmol/L EXTERNAL LAB Potassium, Serum/Plasma 3.9 3.5 - 5.2 mmol/L EXTERNAL LAB Chloride, Serum/Plasma 102 97 - 108 mmol/L EXTERNAL LAB Carbon dioxide CO2), total, Serum/Plasma 23 19 - 28 mmol/L EXTERNAL LAB Calcium, Serum/Plasma 9.3 8.7 - 10.2 mg/dL EXTERNAL LAB Phosphate, Serum/Plasma 2.9 2.5 - 4.5 mg/dL EXTERNAL LAB Albumin, Serum/Plasma 4.4 3.5 - 5.5 g/dL EXTERNAL LAB 07/06/2013 9:35 AM CDT 07/06/2013 12:39 PM CDT Seymour Gaffney MD LAB BLOOD ORDERABLES EXTERNAL LAB documented in this encounter Visit Diagnoses Not on filedocumented in this encounter
--- OUTSIDE RECORDS SUMMARY | 2024-09-03 08:02 | XMS_ITS | Encounter Summary ---
Author Organization [facility] Address [address] [place] [address] Care Team Providers Care Social Work Assistant Name Role Phone Unavailable Primary Care Provider Unavailabl e Reason for Visit * Auth/Cert (Routine) Specialty Diagnoses / Procedures Referred By Jonah t Referred To Contact Behavioral Health [facility] [address] [place] [address] Referral ID Status Reason Start Date Expiration Date Visits Re quested Visits Authorized [id number] 1 1 Encounter Details Date Type Department Care Team (Latest Contact Info) Description 07/22/2023 9:00 AM SOCIAL WORK ADMINISTRATOR - 07/22/2023 11:59 PM [facility] Hospital Encounter [facility] Outpatient Behavioral Health Program Services [address] [place] [address] Marsha Mcgowan, TRAFFIC COUNTER [address] [place] [address] Discharge Disposition: Home or Self [...] this encounter Progress Notes * Dolores Foreman, DRAWBRIDGE TENDER - 07/22/2023 9:00 [address] [facility] Group Note Date: 07/22/2023 Time of Session: Start Time: 10:05 End Time: 11:05 Number of group members present in group: 10 Process Group Topic: distress tolerance Observation/Assessment: At this session, Wily's cognition is noted to be Alert Wily's appearance is noted to be appropriately dressed for weather/season and well-groomed Wily's eye contact is noted to be Good Wily's speech is noted to be clear and normal rate and rhythm, loud Wily's thoughts are noted to be organized [...] attentive, and engaged Interventions: Clinician provided education on distress tolerance skills including radical acceptance and soothing through the 5 senses, provided video and handout, facilitated discussion on topic and identification of skills currently using and open to trying in the future. Patient Response: Wily responded to group topic by sharing his thoughts on radical acceptance. He stated, easier said than done . He continued to discuss by saying he struggles with this skill morewhen it's something I've done . He shared he feels he is at a crossroads and he has to decide to get better and change. When asked about using the skill soothing with the senses, Wily responded that now that his granddaughter was born he focuses on her often and this helps. Time of Session: Start Time: 11:10 End Time: 12:10 Number of group members present in group: 10 Process Group Topic: distraction skills Observation/Assessment: At this session, Wiyl's cognition is noted to be Alert Wily's appearance is noted to be appropriately dressed for weather/season and well-groomed Wily's eye contact is noted to be Good Wily's speech is noted to be clear and normal rate and rhythm, loud Wily's thoughts are noted to be organized [...] attentive, and engaged Interventions: Clinician provided education on distractions skills using the DBT acronym Genaro, provided video and handout, facilitated discussion on topic and identification of skills currently using and open to use in the future. Patient Response: Wily responded to group topic by by watching the video and joining in the discussions. He stated he uses the distraction skill of activities most by reading, walking and listening to music. AL WORK ADMINISTRATOR * Suman Akhtar LPC - 07/22/2023 9:00 AM [facility] Date: 07/22/2023 Time of Session: Start Time: 9:00 End [...] presents with the current symptoms of anxiety Wily does not report suicidal thoughts or plans and does not report homicidal thoughts and plans Wily's level of group participation for this session was active/cooperative, attentive, and engaged Wily reported the following information: level of pain as 4/10 level of depression as 3/10 level of anger as 3/10 level of anxiety as 4/10 5-6 hours [...] treatment goal/plan for today keep on this path to recovery. Pt stated that he is reading a book on trust that his asked him to read. Pt stated that he is learning a lot about trust and about a marriage that he never knew. AL WORK ADMINISTRATOR documented in this encounter Plan of Treatment Not on file documented as of this encounter Visit Diagnoses Not on filedocumented in this encounter Additional Health Concerns Assessment Noted Time PHQ-9 Depression Total Score: 2 07/15/20 23 8:32 AM CDT documented as of this encounter
--- OUTSIDE RECORDS SUMMARY | 2024-09-03 08:02 | XMS_ITS | Encounter Summary ---
Author Organization [facility] Address [address] [place] [address] Care Team Providers Care Hazardous Material Specialist Name Role Phone Unavailable Primary Care Provider Unavailabl e Reason for Visit * Reason Onset Date Comments Follow Up 07/10/2023 Encounter Details Date Type Department Care Team (Late st Contact Info) Description 07/10/2023 Telephone [facility] Program [address] [place] [address] [place] [address] Coretta Yu, PROGRAM DIRECTOR GROUP WORK Follow Up Social History Tobacco Use Types [...]
--- OUTSIDE RECORDS SUMMARY | 2024-09-03 08:02 | XMS_ITS | Encounter Summary ---
Author Organization [facility] Address [address] [place] [address] Care Team Providers Care Rn Er Name Role Phone Unavailable Primary Care Provider Unavailabl e Encounter Details Date Type Department Care Team (Late st Contact Info) Description 05/13/2023 Abstract [facility] Physical Med and Rehab - [facility] [id number] [place] [phone] Sidney Cao, [address] [place] [address] Social History Tobacco Use Types Packs/Day Years [...]
--- OUTSIDE RECORDS SUMMARY | 2024-09-03 08:02 | XMS_ITS | Encounter Summary ---
Author Organization [facility] Address [address] [address] Phone Care Team Providers Care Tare Weigher Name Role Phone Unavailable Primary Care Provider Unavailabl e Encounter Details Date Type Department Care Team (Late st Contact Info) Description 05/02/2013 Legacy Encounter - Labs HISTORICAL CONVERSION CENTRAL [address] [place] [address] Seymour Gaffney MD [address] [facility], [address] [facility] [place] [address] Social History Tobacco Use Types Packs/Day Years [...] Associated Diagnosis Comments CREAT U+PHOS U Routine 05/02/2013 8:00 AM CDT CYSTINE, URINE, 24 HOUR Routine 05/02/2013 8:00 AM CDT UREA NITROGEN (UUN), URINE, 24 HOUR Routine 05/02/2013 8:00 AM CDT MAGNESIUM, URINE Routine 05/02/2013 8:00 AM CDT CITRIC ACID, URINE, 24 HOUR Routine 05/02/2013 8:00 AM CDT SODIUM, URINE, 24 HOUR Routine 05/02/2013 8:00 AM CDT URIC ACID, URINE, 24 HOUR Routine 05/02/2013 8:00 AM CDT CALCIUM, URINE, 24 HOUR Routine 05/02/2013 8:00 AM CDT OXALATE, URINE, 24 HOUR Routine 05/02/2013 8:00 AM CDT documented in this encounter Results * CYSTINE, 24 HOUR, URINE (05/02/2013 8:00 AM CDT) Cystine, 24 hour Urine 9.76 Not Estab. mg/L EXTERNAL LAB Cystine, 24 hour Urine 11.71 10.00 - 100.00 mg/24 hr EXTERNAL LAB 05/02/2013 8:00 AM CDT 05/02/2013 3:06 PM CDT Seymour Gaffney MD LAB BLOOD ORDERABLES Performing Organization Address [facility] de Phone Number EXTERNAL LAB * Citric Acid (Citrate), 24 Hour, Urine (05/02/2013 8:00 AM CDT) Citrate, Urine 284 Undefined mg/L EXTERNAL L AB Citrate, 24 hour Urine 341 320 - 1,240 mg/24 hr EXTERNAL LAB 05/02/2013 8:00 AM CDT 05/02/2013 3:06 PM CDT Seymour Gaffney MD LAB URINE ORDERABLES Performing Organization Address [facility] de Phone Number EXTERNAL LAB * Oxalate (Urine) 24-Hour (05/02/2013 8:00 AM CDT) Oxalate, Urine 20 Undefined mg/L EXTERNAL L AB Oxalate, 24 hour Urine 24 7 - 44 mg/24 hr EXTERNAL LAB 05/02/2013 8:00 AM CDT 05/02/2013 3:06 PM CDT Seymour Gaffney MD LAB URINE ORDERABLES Performing Organization Address [facility] de Phone Number EXTERNAL LAB * (ABNORMAL) Urea Nitrogen, 24-Hour Urine (05/02/2013 8:00 AM CDT) Urea nitrogen, 24 hour Urine (UUN) 719 Not Estab. mg/dL EXTERNAL LAB Urea nitrogen, 24 hour Urine (UUN) 9(L) 12 - 20 g/24 hr EXTERNAL LAB 05/02/2013 8:00 AM CDT 05/02/2013 3:06 PM CDT Seymour Gaffney MD LAB URINE ORDERABLES Performing Organization Address [facility] de Phone Number EXTERNAL LAB * Uric Acid (Urine) 24-Hour (05/02/2013 8:00 AM CDT) Urate, Urine 26.6 Not Estab. mg/dL EXTERNAL LAB Urate, 24 hour Urine 319.2 250.0 - 750.0 mg/24 hr EXTERNAL LAB 05/02/2013 8:00 AM CDT 05/02/2013 3:06 PM CDT Narrative Authorizing Provider Result Murray Gaffney MD LAB URINE ORDERABLES Performing Organization Address [facility] de Phone Number EXTERNAL LAB * Magnesium, Urine (24-Hour) (05/02/2013 8:00 AM CDT) Magnesium, Urine 5.7 Not Estab. mg/dL EXTERNAL LAB Comment:Detection Limit = 0. 1 Magnesium, 24 hour Urine 68.4 12.0 - 293.0 mg/24 hr EXTERNAL LAB 05/02/2013 8:00 AM CDT 05/02/2013 3:06 PM CDT Narrative Authorizing Provider Result Murray Gaffney MD LAB URINE ORDERABLES Performing Organization Address [facility] de Phone Number EXTERNAL LAB * Calcium (Urine) 24-Hour (05/02/2013 8:00 AM CDT) Calcium, 24 hour Urine 14.1 Not Estab. mg/dL EXTERNAL LAB Calcium, 24 hour Urine 169.2 100.0 - 300.0 mg/24 hr EXTERNAL LAB 05/02/2013 8:00 AM CDT 05/02/2013 3:06 PM CDT Seymour Gaffney MD LAB BLOOD ORDERABLES Performing Organization Address City/State/[facility] Co de Phone Number EXTERNAL LAB * Sodium, 24 Hr Urine (05/02/2013 8:00 AM CDT) Sodium, 24 hour Urine 147 Not Estab. mmol/L EXTERNAL LAB Sodium, 24 hour Urine 176 40 - 220 mmol/24 hr EXTERNAL LAB 05/02/2013 8:00 AM CDT 05/02/2013 3:06 PM CDT Seymour Gaffney MD LAB URINE ORDERABLES Performing Organization Address City/[facility] de Phone Number EXTERNAL LAB * Creat U+Phos U (05/02/2013 8:00 AM CDT) Creatinine, Urine 120.5 22.0 - 328.0 mg/dL EXTERNAL LAB Creatinine, 24 hour Urine 1,446.0 1,000.0 - 2,000.0 mg/24 hr EXTERNAL LAB Phosphate, Urine 52.8 Not Estab. mg/dL EXTERNAL LAB Phosphate, 24 hour Urine 633.6 400.0 - 1,300.0 mg/24 hr EXTERNAL LAB 05/02/2013 8:00 AM CDT 05/02/2013 3:06 PM CDT Seymour Gaffney MD LAB BLOOD ORDERABLES Performing Organization Address City/[facility] Co de Phone Number EXTERNAL LAB documented in this encounter Visit Diagnoses Not on filedocumented in this encounter
--- OUTSIDE RECORDS SUMMARY | 2024-09-03 08:03 | XMS_ITS | Continuity of Care Document ---
Author Organization [facility] Address [address] [place] [address] [place] [address] Phone Care Team Providers Care Hydraulic Jack Mechanic Name Role Phone Tae Wayne MD Unavailable Unavailable Advance Directives Directive Yes / No Effective Date File Name No Information Encounters Encounter Description Practice Location Reason(s) For Visit Diagnoses Date Provider Providers Copied on Encounter [facility], [id number] [place] [address] [address], [place], [place], [id number], [place] tel:[phone] [facility] [place] No Information [address] [facility], [address], [place], [place], [id number], [place]. tel:[phone] Family History Family Member Type Diagnosis Age At Onset No Information Payers Payer name Insurance type Covered republican ID Authoriza tidavonte(s) [facility] CI [id number] Social History Type Description Quantity Date Captured Comments Sex Male Smoking Status No Information Chief Complaint And Reason For Visit No Information Reason For Referral Reason For Referral No Information History Of Present Illness Encounter Date Complaint History Of Prese nt Illness No Information Functional Status Date Functional Assessmen t No Information Instructions Date Instruction Additional Infor mation No Information Assessments Type Assessment Date No Information Patient Care Teams Name Effective Dates (start - stop) Status Members No Information
--- OUTSIDE RECORDS SUMMARY | 2024-09-03 08:03 | XMS_ITS | Encounter Summary ---
Author Organization [facility] Address [address], [place] [address] Phone Care Team Providers Care Pool Manager Name Role Phone Unavailable Primary Care Provider Unavailabl e Encounter Details Date Type Department Care Team (Late st Contact Info) Description 12/04/2012 Legacy Encounter - Labs HISTORICAL CONVERSION CENTRAL [address] [place] [address] Seymour Gaffney MD [address] [facility], [address] [place] [address] Social History Tobacco Use Types Packs/Day Years Used Date Smoking Tobacco: Never Assessed Sex and Gender Information Value Date Recorded Sex Assigned at Not on file Gender Identity Not on file Sexual Orientation Not on file documented as of this encounter Plan of Treatment Not on file documented as of this encounter Procedures Procedure Name Priority Date/Time Associated Diagnosis Comments MANUALLY ENTERED ORDER Routine 12/04/2012 12:00 AM CDT documented in this encounter Results * (ABNORMAL) Manually Entered Order (12/04/2012 12:00 AM CDT) Creatinine 0.89 0.57 - 1 EXTERNAL LAB Cholesterol, LDL, Serum/Plasma 94 0 - 99 EXTERNAL LAB Alanine Aminotransferase (ALT), Serum/Plasma 20 0 - 40 EXTERNAL LAB Cholesterol, HDL 37 10 - 50 EXTERNAL LAB Triglyceride, Serum/Plasma 127(H) 25 - 50 EXTERNAL LAB 12/04/2012 Seymour Gaffney MD LAB BLOOD ORDERABLES EXTERNAL LAB documented in this encounter Visit Diagnoses Not on filedocumented in this encounter
--- OUTSIDE RECORDS SUMMARY | 2024-09-03 08:03 | XMS_ITS | Continuity of Care Document ---
Author Organization [facility] Address [address] [place] [address] [address] [place] [address] Phone Care Team Providers Care Development System Efficiency Manager Name Role Phone Freya Livingston PTA Unavailable Unavailable Procedures Procedure Date Therapeutic Activities Neuromuscular Re-Ed Therapeutic Exercise Therapeutic Activities Neuromuscular Re-Ed Therapeutic Exercise Therapeutic Activities Neuromuscular Re-Ed Therapeutic Activities Neuromuscular Re-Ed Therapeutic Activities Neuromuscular Re-Ed Therapeutic Activities Neuromuscular Re-Ed Therapeutic Activities Neuromuscular Re-Ed Therapeutic Activities Neuromuscular Re-Ed Therapeutic Activities Therapeutic Exercise Neuromuscular Re-Ed Progress Note Therapeutic Activities Neuromuscular Re-Ed Therapeutic Activities Neuromuscular Re-Ed Therapeutic Activities Neuromuscular Re-Ed Therapeutic Activities Neuromuscular Re-Ed Therapeutic Activities Neuromuscular Re-Ed Therapeutic Activities Neuromuscular Re-Ed Therapeutic Activities Neuromuscular Re-Ed Therapeutic Activities Neuromuscular Re-Ed Progress Note Therapeutic Activities Neuromuscular Re-Ed Therapeutic Exercise Therapeutic Activities Neuromuscular Re-Ed Therapeutic Activities Neuromuscular Re-Ed Therapeutic Activities Neuromuscular Re-Ed Manual Therapy Progress Note Therapeutic Activities Neuromuscular Re-Ed Therapeutic Exercise Therapeutic Activities Neuromuscular Re-Ed Manual Therapy Therapeutic Activities Neuromuscular Re-Ed Therapeutic Activities Neuromuscular Re-Ed Therapeutic Exercise Therapeutic Activities Neuromuscular Re-Ed Manual Therapy Therapeutic Activities Neuromuscular Re-Ed Therapeutic Exercise Manual Therapy Therapeutic Activities Neuromuscular Re-Ed Manual Therapy Therapeutic Activities Neuromuscular Re-Ed Manual Therapy Neuromuscular Re-Ed Therapeutic Exercise Manual Therapy Doc neg elder mal no plan PT Evaluation Moderate Complexity Therapeutic Exercise Progress Note Therapeutic Exercise Hot or Cold Pack Manual Therapy Neuromuscular Re-Ed Therapeutic Activities Hot or Cold Pack Therapeutic Activities Neuromuscular Re-Ed Manual Therapy Therapeutic Activities Neuromuscular Re-Ed Hot or Cold Pack Therapeutic Exercise Manual Therapy Therapeutic Activities Neuromuscular Re-Ed Therapeutic Exercise Manual Therapy Hot or Cold Pack Therapeutic Activities Neuromuscular Re-Ed Therapeutic Exercise Manual Therapy Hot or Cold Pack Therapeutic Activities Progress Note Hot or Cold Pack Neuromuscular Re-Ed Manual Therapy Therapeutic Activities Hot or Cold Pack Manual Therapy Therapeutic Exercise Neuromuscular Re-Ed Manual Therapy Ultrasound Neuromuscular Re-Ed Therapeutic Activities Hot or Cold Pack Therapeutic Activities Neuromuscular Re-Ed Progress Note Manual Therapy Hot or Cold Pack Ultrasound Neuromuscular Re-Ed Therapeutic Activities Hot or Cold Pack Ultrasound Manual Therapy Therapeutic Exercise Hot or Cold Pack Neuromuscular Re-Ed Therapeutic Activities Manual Therapy Therapeutic Activities Neuromuscular Re-Ed Therapeutic Exercise Manual Therapy Hot or Cold Pack Therapeutic Activities Neuromuscular Re-Ed Therapeutic Exercise Hot or Cold Pack Manual Therapy Therapeutic Activities Neuromuscular Re-Ed Manual Therapy Hot or Cold Pack Therapeutic Exercise Therapeutic Activities Neuromuscular Re-Ed Manual Therapy Therapeutic Exercise Hot or Cold Pack Manual Therapy Therapeutic Activities Hot or Cold Pack Therapeutic Exercise Manual Therapy Therapeutic Activities Hot or Cold Pack Progress Note Manual Therapy Hot or Cold Pack Therapeutic Exercise Therapeutic Activities Neuromuscular Re-Ed Neuromuscular Re-Ed Therapeutic Activities Therapeutic Exercise Hot or Cold Pack Manual Therapy Hot or Cold Pack Manual Therapy Neuromuscular Re-Ed Therapeutic Activities Therapeutic Exercise Therapeutic Activities Neuromuscular Re-Ed Therapeutic Exercise Manual Therapy Ultrasound Hot or Cold Pack Neuromuscular Re-Ed Hot or Cold Pack Manual Therapy Therapeutic Activities Therapeutic Exercise Hot or Cold Pack Manual Therapy Therapeutic Activities Therapeutic Exercise Neuromuscular Re-Ed Therapeutic Exercise Manual Therapy Progress Note Hot or Cold Pack Therapeutic Activities Hot or Cold Pack Therapeutic Exercise Neuromuscular Re-Ed Manual Therapy Therapeutic Exercise Manual Therapy Therapeutic Activities Hot or Cold Pack Neuromuscular Re-Ed Therapeutic Activities Manual Therapy Therapeutic Exercise Hot or Cold Pack Therapeutic Activities Therapeutic Exercise Manual Therapy Hot or Cold Pack Therapeutic Activities Neuromuscular Re-Ed Manual Therapy Therapeutic Exercise Hot or Cold Pack Therapeutic Exercise Therapeutic Activities Manual Therapy Hot or Cold Pack Progress Note Therapeutic Activities Manual Therapy Hot or Cold Pack Therapeutic Exercise Neuromuscular Re-Ed Therapeutic Activities Neuromuscular Re-Ed Therapeutic Exercise Hot or Cold Pack Manual Therapy Hot or Cold Pack Therapeutic Activities Neuromuscular Re-Ed Therapeutic Exercise Manual Therapy Hot or Cold Pack Therapeutic Exercise Manual Therapy Neuromuscular Re-Ed Therapeutic Activities Manual Therapy OT Evaluation Low Complexity Therapeutic Exercise Therapeutic Activities Advance Directives Directive Yes / No Effective Date File Name No Information Encounters Encounter Description Practice Location Reason(s) For Visit Diagnoses Date Provider Providers Copied on Encounter [facility] [address], [place], [place], [id number], tel:[phone] [place] No Information Miki Pillai. . Referring Provider: [place], [address]. tel:[phone] [facility] [address], [place], [place], [id number], tel:[phone] [place] No Information 4 Nel Castellanos. . Referring Provider: Nereyda Maciel, [address] [place], [address]. [phone] [place] [address] [address], [place], [place], [address], tel:[phone] [place] No Information [address] [facility], [address], [place], [facility], . tel: [phone] Referring Provider: Nereyda Maciel, [address] [place], [address]. [phone] [place] [address] [address], [place], [place], [id number], tel:[phone] [place] No Information [address] [facility], [address], [place], [facility], . tel: [phone] Referring Provider: Nereyda Maciel, [address] [facility], [place], [address]. tel:[phone] [place] [address] [address], [place], [place], [address], tel:[phone] [place] No Information [address] [facility], [address], [place], [facility], . tel: [phone] Referring Provider: Nereyda Maciel, [address] [facility], [place], [address]. [phone] [place] [address] [facility] [address], [place], [place], [address], tel:[phone] [place] No Information [address] [facility], [address], [address], . tel: [phone] Referring Provider: Nereyda Maciel, [address] [place], [address]. tel:[phone] [address], [place], [place], [address], tel:[phone] [place] No Information [address] [facility], [address], [address], [place]. tel: [phone] Referring Provider: Nereyda Maciel, [address] [place], [address]. tel:[phone] [place] [address], [place], [place], [address], tel:[phone] [place] No Information [address] [facility], [address], [address], [place]. tel: [phone] Referring Provider: Nereyda Maciel, [address] [place], [address]. tel:[phone] [facility], [place], [place], [id number], tel:[phone] [place] No Information [address] [facility], [address], [address], [place]. tel:[phone] Referring Provider: Nereyda Maciel, [address] [place], [address]. tel:[phone] [address], [place], [place], [address], tel:[phone] [place] No Information [address] [facility], [address], [place], [facility], . tel:[phone] Referring Provider: Blas Alvarado, [facility] [address] [place] [address] [place] [address], [facility]. tel:[phone] [place] [address], [id number], tel:[phone] [place] No Information Oct-0 [address] [facility], [address], [place], [facility], . tel:[phone] Referring Provider: Blas Alvarado, [facility] [address] [place] [address] [place] [address], [facility]. tel:[phone] [place] [address], [id number], tel:[phone] [place] No Information Jun-[address] [facility], [address], [place], [facility], . tel:[phone] Referring Provider: Blas Alvarado, [facility] [address] [place] [address] [place] [address], [facility]. tel:[phone] [place] [address], [id number], tel:[phone] [place] No Information Sep-3 [address] [facility], [address], [place], [facility], . tel:[phone] Referring Provider: Blas Alvarado, [facility] [address] [place] [address] [place] [address], [facility]. tel:[phone] [place] [address], [id number], tel:[phone] [place] No Information Sep-[address] [facility], [address], [place], [address], [place]. tel:[phone] Referring Provider: Blas Alvarado, [facility] [address] [place] [address] [address], [place], [place], [facility]. tel:[phone] [address], [place], [place], [address], [place] tel:[phone] [place] No Information Sep- [address] [facility], [address], [place], [facility], [place]. tel:[phone] Referring Provider: Blas Alvarado, [facility] [address] [place] [address] [address], [place], [facility]. tel:[phone] [place], [place] [address], [place], [address], [place] tel:[phone] [place] No Information Sep- 4 Richard Rubén. . Referring Provider: Blas Alvarado, [facility] [address] [place] [address] [address], [place], [facility]. tel:[phone], [place], [place], [id number], [place] tel:[phone] [place] [facility] No Information Sep- 4 Richard Rubén. . Referring Provider: Blas Alvarado, [facility] [address] [place] [address] [address], [place], [facility]. tel:[phone], [place], [address], [place] tel:[phone] [place] No Information Sep- 4 Richard Rubén. . Referring Provider: Blas Alvarado, [facility] [address] [place] [address] [address], [place], [facility]. tel:[phone], [place], [place], [address], [place] tel:[phone] [place] [facility] No Information Sep1 4 Richardelina Montnaa. . Referring Provider: Blas Alvarado, [facility] [address] [place] [address] [address], [place], [facility]. tel:[phone] [place] [address] [place], [place] [address], [place], [address], [place] tel:[phone] [place] [facility] No Information Sep-0 4 Richard Rubén. . Referring Provider: Blas Alvarado, [facility] [address] [place] [address] [address], [place], [facility]. tel:[phone] [place] [address] [place], [place] [address], [place], [place], [address], tel:[phone] [place] [facility] No Information Sep0 4 Anay Dubon. . Referring Provider: Blas Alvarado, [facility] [address] [place] [address] [address], [place], [facility]. tel:[phone] [place] [address] [place], [place] [address] [address], [place], [id number], tel:[phone] [place] No Information 4 Richard Montana. . Referring Provider: Blas Alvarado, [facility] [address] [place] [address] [address], [place], [facility]. tel:[phone] [place] [address] [facility] [address], [place], [place], [address], [place] tel:[phone] [place] No Information [address] [facility], [address], [place], [place], [facility], . tel:[phone] Referring Provider: Blas Alvarado, [facility] [address] [place] [address] [address], [place], [facility]. tel:[phone] [place] [address], [address], [place], [place], [address], [place] tel:[phone] [place] No Information 4 Richard Rubén. . Referring Provider: Blas Alvarado, [facility] [address] [place] [address] [address], [place], [address]. tel:[phone] [facility] [address], [place], [place], [address], [place] tel:[phone] [place] No Information 4 Richard Rubén. . Referring Provider: Blas Alvarado, [facility] [address] [place] [address] [address], [place], [facility]. tel:[phone] [place] [address] [place], [place] [address], [place], [place], [address], [place] tel:[phone] [place] No Information 4 Richard Rubén. . Referring Provider: Blas Alvarado, [facility] [address] [place] [address] [address], [place], [facility]. tel:[phone] [place] [address] [facility] [address], [place], [place], [address], [place] tel:[phone] [place] No Information 4 Richard Rubén. . Referring Provider: Blas Alvarado, [facility] [address] [place] [address] [address], [place], [address]. tel:[phone] [facility] [address], [place], [place], [address], [place] tel:[phone] [place] No Information 4 Richard Rubén. . Referring Provider: Blas Alvarado, [facility] [address] [place] [address] [address], [place], [facility]. tel:[phone] [facility] [address], [place], [place], [address], [place] tel:[phone] [place] No Information 4 Richard Rubén. . Referring Provider: Blas Alvarado, [facility] [address] [place] [address] [address], [place], [address]. tel:[phone] [facility], [address], [place], [place], [address], [place] tel:[phone] [place] No Information 4 Richard Rubén. . Referring Provider: Blas Alvarado, [facility] [address] [place] [address] [address], [place], [address]. tel:[phone] [facility] [address], [place], [place], [address], tel:[phone] [place] No Information 4 Richard Rubén. . Referring Provider: Blas Alvarado, [facility] [address] [place] [address] [address], [place], [address]. tel:[phone] [facility] [address], [place], [place], [address], [place] tel:[phone] [place] No Information 2 Shelley Pepe. . Referring Provider: [facility] [address], [place], [address]. tel:[phone] [facility] [address], [place], [place], [address], [place] tel:[phone] [place] No Information 2 Shelley Pepe. . Referring Provider: Bobby Shearer [facility] [address], [place], [address]. tel:[phone] [facility], [address], [place], [place], [address], [place] tel:[phone] [place] No Information 2 Shelley Pepe. . Referring Provider: Zach Snyder , [address], [place], [address]. tel:[phone] [place] [address] [address], [place], [place], [address], [place] tel:[phone] [place] No Information Dec-2 1 Shelley Pepe. . Referring Provider: Zach Snyder , [address], [place], [address]. tel:[phone] [place] [address] [address], [place], [place], [address], [place] tel:[phone] [place] No Information Dec-2 1 Shelley Pepe. . Referring Provider: Zach Snyder , [address], [place], [address]. tel:[phone] [place] [address] [address], [place], [place], [address], [place] tel:[phone] [place] No Information Dec-2 1 Shelley Pepe. . Referring Provider: Zach Snyder , [address], [place], [address]. tel:[phone] [place] [address] [address], [place], [place], [address], [place] tel:[phone] [place] No Information Dec-2 0 1 Shelley Pepe. . Referring Provider: Zach Snyder , [address], [place], [address]. tel:[phone] [place] [address] [address], [place], [place], [address], [place] tel:[phone] [place] No Information Dec-1 1 Shelley Pepe. . Referring Provider: Zach Snyder , [address], [place], [address]. tel:[phone] [address] [place] [address] [address], [place], [place], [address], [place] tel:[phone] [place] No Information Dec-1 4- 1 Shelley Pepe. . Referring Provider: Zach Snyder , [address], [place], [address]. tel:[phone] [place] [address] [address], [place], [place], [address], [place] tel:[phone] [place] No Information Dec-1 3-202 1 Shelley Pepe. . Referring Provider: Zach Snyder , [address], [place], [address]. tel:[phone] [place] [address] [facility] [address], [place], [place], [address], [place] tel:[phone] [place] No Information Dec-1 0-202 1 Shelley Pepe. . Referring Provider: Zach Snyder , [address], [place], [address]. tel:[phone] [place] [address] [facility] [address], [place], [place], [address], [place] tel:[phone] [facility] [place] No Information Dec-0 9-202 1 Shelley Pepe. . Referring Provider: Zach Snyder , [address], [place], [address]. tel:[phone] [place] [address] [address], [place], [place], [address], [place] tel:[phone] [place] No Information Dec-0 7-202 1 Shelley Pepe. . Referring Provider: Zach Snyder , [address], [place], [address]. tel:[phone] [place] [address] [address], [place], [place], [address], [place] tel:[phone] [place] No Information Dec-0 3-202 1 Shelley Pepe. . Referring Provider: Zach Snyder , [address], [place], [address]. tel:[phone] [place] [address] [address], [place], [place], [address], tel:[phone] [place] No Information Aug-0 1 Shelley Pepe. . Referring Provider: Zach Snyder , [address], [place], [address]. tel:[phone] [place] [address] [address], [place], [place], [address], [place] tel:[phone] [place] No Information Aug-0 1 Shelley Pepe. . Referring Provider: Zach Snyder , [address], [place], [address]. tel:[phone] [place] [address] [address], [place], [place], [address], [place] tel:[phone] [place] No Information 1 Shelley Pepe. . Referring Provider: Zach Snyder , [address], [place], [address]. tel:[phone] [place] [address] [address], [place], [place], [address], [place] tel:[phone] [place] No Information 1 Shelley Pepe. . Referring Provider: Zach Snyder , [address], [place], [address]. tel:[phone] [place] [address] [address], [place], [place], [address], [place] tel:[phone] [place] No Information 1 Shelley Pepe. . Referring Provider: Zach Snyder , [address], [place], [address]. tel:[phone] [place] [address] [address], [place], [place], [address], [place] tel:[phone] [place] No Information 1 Shelley Pepe. . Referring Provider: Zach Snyder , [address], [place], [address]. tel:[phone] [place] [address] [address], [place], [place], [address], [place] tel:[phone] [place] No Information 1 Shelley Pepe. . Referring Provider: Zach Snyder , [address], [place], [address]. tel:[phone] [place] [address] [address], [place], [place], [address], [place] tel:[phone] [place] No Information 1 Shelley Pepe. . Referring Provider: Zach Snyder , [address], [place], [address]. tel:[phone] [place] [address] [address], [place], [place], [address], [place] tel:[phone] [place] No Information 0 1 Shelley Pepe. . Referring Provider: Zach Snyder , [address], [place], [address]. tel:[phone] [place] [address] [address], [place], [place], [address], [place] tel:[phone] [place] No Information 0 1 Shelley Pepe. . Referring Provider: Zach Snyder , [address], [place], [address]. tel:[phone] [place] [address] [address], [place], [place], [address], [place] tel:[phone] [place] No Information Nov0 1 Shelley Pepe. . Referring Provider: Zach Snyder , [address], [place], [address]. tel:[phone] [place] [address] [address], [place], [place], [address], [place] tel:[phone] [place] No Information Jul-0 - 1 Shelley Pepe. . Referring Provider: Zach Snyder , [address], [place], [address]. tel:[phone] [place] [address] [address], [place], [place], [address], [place] tel:[phone] [place] No Information 1 Shelley Peep. . Referring Provider: Zach Snyder , [address], [place], [address]. tel:[phone] [place] [address] [address], [place], [place], [address], [place] tel:[phone] [place] No Information 1 Shelley Pepe. . Referring Provider: Zach Snyder , [address], [place], [address]. tel:[phone] [place] [address] [address], [place], [id number], [place] tel:[phone] [place] No Information 1 Shelley Pepe. . Referring Provider: Zach Snyder , [address], [place], [address]. tel:[phone] [place] [address] [address], [place], [place], [id number], [place] tel:[phone] [place] No Information 1 Shelley Pepe. . Referring Provider: Zach Snyder , [address], [place], [address]. tel:[phone] [place] [address] [address], [place], [place], [id number], tel:[phone] [place] No Information 1 Shelley Pepe. . Referring Provider: Zach Snyder , [address], [place], [address]. tel:[phone] [place], [place] [address], [place], [place], [id number], tel:[phone] [place] No Information 1 Shelley Pepe. . Referring Provider: Zach Snyder , [address], [place], [address]. tel:[phone] [place] [address] [address], [place], [place], [id number], tel:[phone] [place] No Information 1 Shelley Pepe. . Referring Provider: Zach Snyder , [address], [place], [address]. tel:[phone], [place], [place], [id number], tel:[phone] [place] No Information 1 Shelley Pepe. . Referring Provider: Zach Snyder , [address], [place], [address]. tel:[phone], [place], [place], [id number], tel:[phone] [place] No Information 1 Shelley Pepe. . Referring Provider: Zach Snyder , [address], [place], [address]. tel:[phone] Family History Family Member Type Diagnosis Age At Onset No Information Payers Payer name Insurance type Covered republican ID Authorjoyce nugent(s) Medicare [place] [id number] [address] [id number] Social History Type Description Quantity Date Captured Comments Sex Male Smoking Status No Information Chief Complaint And Reason For Visit No Information Reason For Referral Reason For Referral No Information History Of Present Illness Encounter Date Complaint History Of Prese nt Illness No Information Functional Status Date Functional Assessmen t No Information Instructions Date Instruction Additional Infor mation Dietary needs education Related to Overweight Prescribed activity/exercise edu cation Related to Overweight Assessments Type Assessment Date No Information Patient Care Teams Name Effective Dates (start - stop) Status Members No Information
--- OUTSIDE RECORDS SUMMARY | 2024-09-03 08:03 | XMS_ITS | Encounter Summary ---
Author Organization [facility] Address [address], [place] [address] Phone Care Team Providers Care Fur Liner Name Role Phone Unavailable Primary Care Provider Unavailabl e Encounter Details Date Type Department Care Team (Late st Contact Info) Description 04/25/2013 [facility] Encounter - Labs H[facility]OR[facility] CONVERSION CENTRAL [address] [place] [address] [place] Gaffney MD [address] [facility], SUITE [facility], [facility] [place] [address] Social History Tobacco Use Types Packs/Day Years Used Date Smoking Tobacco: Never Assessed Sex and Gender Information Value Date Recorded Sex Assigned at Not on file Gender Identity Not on file Sexual Orientation Not on file documented as of this encounter Plan of Treatment Not on file documented as of this encounter Procedures Procedure Name Priority Date/Time Associated Diagnosis Comments VITAMIN D, 25-HYDROXY, SERUM Routine 04/25/2013 10:27 AM CDT RENAL FUNCTION PANEL (RFP) Routine 04/25/2013 10:27 AM CDT PTH INTACT AND CALCIUM, SERUM Routine 04/25/2013 10:27 AM CDT documented in this encounter Results * (ABNORMAL) Vitamin D, 25-Hydroxy (04/25/2013 10:27 AM CDT) 25-Hydroxyvitam in D2+25-Hydroxyvi tamin D3, Serum/Plasma 27.2(L) 30.0 - 100.0 ng/mL EXTERNAL LAB Comment: Vitamin D deficiency has been defined by the [place] and an Endocrine Society practice guideline as a level of serum 25-OH vitamin D less than 20 ng/mL (1,2). The Endocrine Society went on to further define vitamin D insufficiency as a level between 21 and 29 ng/mL (2). 1. IOM ([place]). 2010. Dietary reference ?? intakes for calcium and D. [place]: The ?? National Academies Press. 2. Dipak MF, Leonarda MEHTA, Shailesh RYDER, et al. ?? Evaluation, treatment, and prevention of vitamin D ?? deficiency: an Endocrine Society clinical practice ?? guideline. JCEM. 2011 Mar; 96(7):1911-30. 04/25/2013 10:2 7 AM CDT 04/25/2013 2:34 PM CDT [place] Gaffney MD LAB BLOOD ORDERABLES EXTERNAL LAB * PTH Intact w/ Calcium (04/25/2013 10:27 AM CDT) PTH, Intact, Serum/Plasma 15 15 - 65 pg/mL EXTERNAL LAB Parathyrin (PTH), intact, Serum/Plasma EXTERNAL LAB Comment: ? Interpretation ? Intact PTH ?Calcium ? (pg/mL) ?(mg/dL) ? Normal ?15 - 65 ? 8.6 - 10.2 ? Primary Hyperparathyroidism ? >65 ?>10.2 ? Secondary Hyperparathyroidism ? >65 ?<10.2 ? Non-Parathyroid Hypercalcemia ? <65 ?>10.2 ? Hypoparathyroidism ?<15 ?< 8.6 ? Non-Parathyroid Hypocalcemia ?15 - 65 ?< 8.6 04/25/2013 10:2 7 AM CDT 04/25/2013 2:34 PM CDT [place] Gaffney MD LAB BLOOD ORDERABLES EXTERNAL LAB * Renal Function Panel (04/25/2013 10:27 AM CDT) Glucose, Serum/Plasma 99 65 - 99 mg/dL EXTERNAL LAB Urea nitrogen, Serum/Plasma (BUN) 14 6 - 24 mg/dL EXTERNAL LAB Creatinine, Serum/Plasma 0.87 0.76 - 1.27 mg/dL EXTERNAL LAB eGFR, non 97 >59 mL/min/1.73 EXTERNAL LAB eGFR, 112 >59 mL/min/1.73 EXTERNAL LAB Urea nitrogen/Creati nine, Serum/Plasma 16 9 - 20 EXTERNAL LAB Sodium, Serum/Plasma 142 134 - 144 mmol/L EXTERNAL LAB Potassium, Serum/Plasma 4.2 3.5 - 5.2 mmol/L EXTERNAL LAB Chloride, Serum/Plasma 105 97 - 108 mmol/L EXTERNAL LAB Carbon dioxide CO2), total, Serum/Plasma 22 19 - 28 mmol/L EXTERNAL LAB Calcium, Serum/Plasma 8.9 8.7 - 10.2 mg/dL EXTERNAL LAB Phosphate, Serum/Plasma 3.1 2.5 - 4.5 mg/dL EXTERNAL LAB Albumin, Serum/Plasma 4.3 3.5 - 5.5 g/dL EXTERNAL LAB 04/25/2013 10:2 7 AM CDT 04/25/2013 2:34 PM CDT [place] Gaffney MD LAB BLOOD ORDERABLES Performing Organization Address [facility]/State[facility] Phone Number EXTERNAL LAB documented in this encounter Visit Diagnoses Not on filedocumented in this encounter
--- OUTSIDE RECORDS SUMMARY | 2024-09-03 08:03 | XMS_ITS | Encounter Summary ---
Author Organization [facility] Address [address] [place] [id number] Phone Care Team Providers Care Agricultural Service Technician Name Role Phone Unavailable Primary Care Provider Unavailabl e Encounter Details Date Type Department Care Team (Late st Contact Info) Description 03/08/2013 Legacy Encounter - Labs HISTORICAL CONVERSION CENTRAL [address] [place] [address] [place] Gaffney MD [address] [facility], [address] [place] [address] Social History Tobacco Use Types Packs/Day Years [...] Associated Diagnosis Comments MANUALLY ENTERED ORDER Routine 03/08/2013 12:00 AM CDT documented in this encounter Results * Manually Entered Order (03/08/2013 12:00 AM CDT) HEMOGLOBIN 15.6 12 - 16 EXTERNAL LAB Culture, Urine, Reflex neg EXTERNAL LAB 03/08/2013 [place] Gaffney MD LAB BLOOD ORDERABLES EXTERNAL LAB documented in this encounter Visit Diagnoses Not on filedocumented in this encounter
== END 2024-08-29 11:02 | disposition home or self-care (01) ==
PROVIDERS: PCP Student in an Organized Health Care Education/Training Program; Referring Provider Nurse Practitioner Family; Visit Provider Internal Medicine Gastroenterology
PROC: 0DJD8ZZ Inspection of Lower Intestinal Tract, Via Natural or Artificial Opening Endoscopic (ICD-10-PCS; CPT 45378; principal; 2024-08-29 10:30)
DX: K63.5 Polyp of colon (principal); E11.9 Type 2 diabetes mellitus without complications; I10 Essential (primary) hypertension; K21.9 Gastro-esophageal reflux disease without esophagitis; E29.1 Testicular hypofunction; G47.33 Obstructive sleep apnea (adult) (pediatric); F32.A Depression, unspecified; R25.1 Tremor, unspecified; F43.10 Post-traumatic stress disorder, unspecified; M51.369 Other intervertebral disc degeneration, lumbar region without mention of lumbar back pain or lower extremity pain; M16.0 Bilateral primary osteoarthritis of hip; E66.9 Obesity, unspecified; Z68.32 Body mass index [BMI] 32.0-32.9, adult; Z79.84 Long term (current) use of oral hypoglycemic drugs; Z98.890 Other specified postprocedural states; Z98.1 Arthrodesis status; Z87.442 Personal history of urinary calculi
CPT/HCPCS: 45380; 45385; 82948; 88305; J2003; J2704; J7120